=== PATIENT | male | born 1960 | race Caucasian/White ===

== ENCOUNTER 2019-10-03 20:56 | Inpatient (IN) | payer OTHER ==
--- NOTE | 2019-10-03 21:25 | ED ---
GI Bleed HPI - General Chief complaint: GI Bleed Stated complaint: Syncope Time Seen by Provider: 10/03/19 21:09 Source: patient Mode of arrival: wheelchair Limitations: no limitations - History of Present Illness Initial comments: This patient is 59-year-old man who states that he has history of colon cancer and liver cancer, who presents to be evaluated for GI bleeding. The patient states that he had noted some dark bloody material in his colostomy bag on Saturday a little after noon. Patient states that things seem to slow down and then had more of that which he noticed this morning. Patient states that it did seem to get heavier this evening and so he comes to be evaluated. The patient states that he has a colostomy as result of having surgery for the colon cancer. They had attempted to reverse the colostomy earlier this year but he became septic and needed a repeat colostomy performed. Patient did note that he was feeling lightheaded when he stood up. No chest pain or dyspnea at rest. MD complaint: melena Onset/Timin -: hour(s) Consistency: intermittent Improves with: none Worsens with: none Context: liver disease Associated Symptoms: denies other symptoms Treatments Prior to Arrival: none - Related Data Home Medications Medication Instructions Recorded Confirmed Aspirin [Adult Low Dose Aspirin EC] 81 mg PO DAILY 10/03/19 10/03/19 Multivitamins, Thera [Multivitamin 1 tab PO DAILY 10/03/19 10/03/19 (formulary)] Previous Rx's Medication Instructions Recorded Pantoprazole Sodium [Protonix] 40 mg PO AC-BID #60 tablet. 10/07/19 Allergies Allergy/AdvReac Type Severity Reaction Status Date / Time Sulfa (Sulfonamide Allergy Anaphylaxis Verified 10/03/19 23:36 Antibiotics) Review of Systems ROS Statement: Those systems with pertinent positive or pertinent negative responses have been documented in the HPI. ROS Other: All systems not noted in ROS Statement are negative. Constitutional: Denies: fever, chills, weakness Respiratory: Denies: cough, dyspnea, wheezes Cardiovascular: Denies: chest pain, palpitations, orthopnea, edema, syncope Gastrointestinal: Reports: as per HPI, melena. Denies: abdominal pain, nausea, vomiting, diarrhea, constipation, hematochezia Genitourinary: Denies: dysuria, hematuria Musculoskeletal: Denies: back pain Skin: Denies: rash Neurological: Denies: headache, weakness, numbness Past Medical History Past Medical History: Cancer Additional Past Medical History / Comment(s): colon cancer, hx of sepsis History of Any Multi-Drug Resistant Organisms: None Reported Past Surgical History: Bowel Resection Additional Past Surgical History / Comment(s): liver/rectal colon cancer, Past Psychological History: No Psychological Hx Reported Smoking Status: Never smoker Past Alcohol Use History: None Reported Past Drug Use History: None Reported - Past Family History Father Family Medical History: Cancer General Exam Limitations: no limitations General appearance: alert, in no apparent distress Head exam: Present: atraumatic, normocephalic Eye exam: Present: normal appearance. Absent: scleral icterus, conjunctival injection ENT exam: Present: normal oropharynx, other (Pallor) Neck exam: Present: normal inspection, full ROM Respiratory exam: Present: normal lung sounds bilaterally. Absent: respiratory distress, wheezes, rales, rhonchi, stridor Cardiovascular Exam: Present: regular rate (Rate is 96 at my exam), normal rhythm, normal heart sounds. Absent: systolic murmur, diastolic murmur, rubs, gallop GI/Abdominal exam: Present: soft, normal bowel sounds, other (In the right lower abdomen there is what appears to be a loop colostomy. There is some dark melanotic appearing output.). Absent: distended, tenderness, guarding, rebound, rigid, mass, pulsatile mass, hernia Extremities exam: Present: normal inspection, normal capillary refill. Absent: pedal edema, calf tenderness Back exam: Present: normal inspection. Absent: CVA tenderness (R), CVA tenderness (L) Neurological exam: Present: alert Skin exam: Present: warm, dry, intact, normal color. Absent: rash Course Vital Signs 10/03/19 10/03/19 10/03/19 21:02 22:00 22:30 Temperature 98.1 F Pulse Rate 117 H 99 100 Respiratory 18 18 17 Rate Blood Pressure 83/53 94/59 98/61 O2 Sat by Pulse 100 99 100 Oximetry 10/03/19 10/03/19 10/03/19 23:01 23:45 23:55 Temperature 98.7 F 97.8 F 97.5 F L Pulse Rate 105 H 108 H 109 H Respiratory 18 16 18 Rate Blood Pressure 90/62 92/63 100/59 O2 Sat by Pulse 100 100 100 Oximetry 10/04/19 00:25 Temperature 97.8 F Pulse Rate 110 H Respiratory 18 Rate Blood Pressure 97/66 O2 Sat by Pulse 100 Oximetry Medical Decision Making - Lab Data Result diagrams: 10/07/19 10:49 10/05/19 05:10 Lab Results 10/03/19 10/03/19 10/03/19 Range/Units 21:16 21:16 21:16 WBC 10.6 (3.8-10.6) k/uL RBC 2.13 L (4.30-5.90) m/uL Hgb 6.2 L* (13.0-17.5) gm/dL Hct 19.3 L* (39.0-53.0) % MCV 90.7 (80.0-100.0) fL MCH 29.4 (25.0-35.0) pg MCHC 32.4 (31.0-37.0) g/dL RDW 15.2 (11.5-15.5) % Plt Count 301 (150-450) k/uL Neutrophils % 72 % Lymphocytes % 19 % Monocytes % 6 % Eosinophils % 1 % Basophils % 1 % Neutrophils # 7.6 (1.3-7.7) k/uL Lymphocytes # 2.0 (1.0-4.8) k/uL Monocytes # 0.6 (0-1.0) k/uL Eosinophils # 0.1 (0-0.7) k/uL Basophils # 0.1 (0-0.2) k/uL PT (9.0-12.0) sec INR (<1.2) APTT (22.0-30.0) sec Sodium 138 (137-145) mmol/L Potassium 4.2 (3.5-5.1) mmol/L Chloride 111 H (98-107) mmol/L Carbon Dioxide 23 (22-30) mmol/L Anion Gap 4 mmol/L BUN 35 H (9-20) mg/dL Creatinine 0.97 (0.66-1.25) mg/dL Est GFR (CKD-EPI)AfAm >90 (>60 ml/min/1.73 sqM) Est GFR (CKD-EPI)NonAf 85 (>60 ml/min/1.73 sqM) Glucose 180 H (74-99) mg/dL Lactic Ac Sepsis Rflx Plasma Lactic Acid Han 2.8 H* (0.7-2.0) mmol/L Calcium 8.3 L (8.4-10.2) mg/dL Total Bilirubin <0.1 L (0.2-1.3) mg/dL AST 17 (17-59) U/L ALT 29 (21-72) U/L Alkaline Phosphatase 45 (38-126) U/L Troponin I (0.000-0.034) ng/mL Total Protein 4.5 L (6.3-8.2) g/dL Albumin 2.5 L (3.5-5.0) g/dL Blood Type Blood Type Confirm Blood Type Recheck Bld Type Recheck Status Antibody Screen Crossmatch Spec Expiration Date 10/03/19 10/03/19 10/03/19 Range/Units 21:16 21:16 21:16 WBC (3.8-10.6) k/uL RBC (4.30-5.90) m/uL Hgb (13.0-17.5) gm/dL Hct (39.0-53.0) % MCV (80.0-100.0) fL MCH (25.0-35.0) pg MCHC (31.0-37.0) g/dL RDW (11.5-15.5) % Plt Count (150-450) k/uL Neutrophils % % Lymphocytes % % Monocytes % % Eosinophils % % Basophils % % Neutrophils # (1.3-7.7) k/uL Lymphocytes # (1.0-4.8) k/uL Monocytes # (0-1.0) k/uL Eosinophils # (0-0.7) k/uL Basophils # (0-0.2) k/uL PT 10.8 (9.0-12.0) sec INR 1.0 (<1.2) APTT 20.8 L (22.0-30.0) sec Sodium (137-145) mmol/L Potassium (3.5-5.1) mmol/L Chloride (98-107) mmol/L Carbon Dioxide (22-30) mmol/L Anion Gap mmol/L BUN (9-20) mg/dL Creatinine (0.66-1.25) mg/dL Est GFR (CKD-EPI)AfAm (>60 ml/min/1.73 sqM) Est GFR (CKD-EPI)NonAf (>60 ml/min/1.73 sqM) Glucose (74-99) mg/dL Lactic Ac Sepsis Rflx Plasma Lactic Acid Han (0.7-2.0) mmol/L Calcium (8.4-10.2) mg/dL Total Bilirubin (0.2-1.3) mg/dL AST (17-59) U/L ALT (21-72) U/L Alkaline Phosphatase (38-126) U/L Troponin I 0.035 H* (0.000-0.034) ng/mL Total Protein (6.3-8.2) g/dL Albumin (3.5-5.0) g/dL Blood Type O Positive Blood Type Confirm Blood Type Recheck No Previous Record Bld Type Recheck Status CABO Indicated Antibody Screen NEGATIVE Crossmatch See Detail Spec Expiration Date 10/06/2019 - 231510/03/19 10/03/19 Range/Units 21:16 22:15 WBC (3.8-10.6) k/uL RBC (4.30-5.90) m/uL Hgb (13.0-17.5) gm/dL Hct (39.0-53.0) % MCV (80.0-100.0) fL MCH (25.0-35.0) pg MCHC (31.0-37.0) g/dL RDW (11.5-15.5) % Plt Count (150-450) k/uL Neutrophils % % Lymphocytes % % Monocytes % % Eosinophils % % Basophils % % Neutrophils # (1.3-7.7) k/uL Lymphocytes # (1.0-4.8) k/uL Monocytes # (0-1.0) k/uL Eosinophils # (0-0.7) k/uL Basophils # (0-0.2) k/uL PT (9.0-12.0) sec INR (<1.2) APTT (22.0-30.0) sec Sodium (137-145) mmol/L Potassium (3.5-5.1) mmol/L Chloride (98-107) mmol/L Carbon Dioxide (22-30) mmol/L Anion Gap mmol/L BUN (9-20) mg/dL Creatinine (0.66-1.25) mg/dL Est GFR (CKD-EPI)AfAm (>60 ml/min/1.73 sqM) Est GFR (CKD-EPI)NonAf (>60 ml/min/1.73 sqM) Glucose (74-99) mg/dL Lactic Ac Sepsis Rflx Y Plasma Lactic Acid Han (0.7-2.0) mmol/L Calcium (8.4-10.2) mg/dL Total Bilirubin (0.2-1.3) mg/dL AST (17-59) U/L ALT (21-72) U/L Alkaline Phosphatase (38-126) U/L Troponin I (0.000-0.034) ng/mL Total Protein (6.3-8.2) g/dL Albumin (3.5-5.0) g/dL Blood Type Blood Type Confirm O Positive Blood Type Recheck Bld Type Recheck Status Antibody Screen Crossmatch Spec Expiration Date - EKG Data -: EKG Interpreted by Me EKG shows normal: sinus rhythm, axis (Normal), intervals (Normal), QRS complexes (Normal), ST-T waves (Normal) Rate: normal (Rate 99 bpm) Interpretation: normal EKG Critical Care Time Critical Care Time: Yes (30 minutes) Disposition Clinical Impression: Gastrointestinal hemorrhage, Anemia, Elevated troponin, Lactic acidosis Disposition: ADMITTED IP TO THIS HOSP Condition: Good Is patient prescribed a controlled substance at d/c from ED?: No
[2019-10-03] MEDS ORDERED: PANTOPRAZOLE 40 MG/10 ML VIAL IVP STA (21:35)
[2019-10-03 21:45] LABS: Basophils # (A) 0.1 k/uL (0-0.2); Basophils % (A) 1 %; Eosinophils # (A) 0.1 k/uL (0-0.7); Eosinophils % (A) 1 %; Lymphocytes % (A) 19 %; MCH 29.4 pg (25.0-35.0); MCHC 32.4 g/dL (31.0-37.0); MCV 90.7 fL (80.0-100.0); Mean Platelet Volume 7.3; Monocytes # (A) 0.6 k/uL (0-1.0); Monocytes % (A) 6 %; Neutrophils # (A) 7.6 k/uL (1.3-7.7); Neutrophils % (A) 72 %; Platelet Count 301 k/uL (150-450); RBC 2.13 m/uL (4.30-5.90); RDW 15.2 % (11.5-15.5); WBC 10.6 k/uL (3.8-10.6)
[2019-10-03 21:48] LABS: HCT 19.3 % (39.0-53.0); HGB 6.2 gm/dL (13.0-17.5)
[2019-10-03 21:49] LABS: ALT 29 U/L (21-72); AST 17 U/L (17-59); African American GFR (CKD) >90 (>60 ml/min/1.73 sqM); Albumin 2.5 g/dL (3.5-5.0); Alkaline Phosphatase 45 U/L (38-126); Anion Gap 4 mmol/L; Blood Urea Nitrogen 35 mg/dL (9-20); Calcium 8.3 mg/dL (8.4-10.2); Carbon Dioxide 23 mmol/L (22-30); Chloride 111 mmol/L (98-107); Glucose 180 mg/dL (74-99); Non-African American GFR(CKD) 85 (>60 ml/min/1.73 sqM); Potassium 4.2 mmol/L (3.5-5.1); Sodium 138 mmol/L (137-145); Total Bilirubin <0.1 mg/dL (0.2-1.3); Total Protein 4.5 g/dL (6.3-8.2)
[2019-10-03 21:55] LABS: Prothrombin Time 10.8 sec (9.0-12.0)
[2019-10-03] MEDS ORDERED: SODIUM CHLORIDE 0.9% 1,000 ML IV ONE (22:21)
[2019-10-03 22:30] LABS: Partial Thromboplastin Time 20.8 sec (22.0-30.0)
[2019-10-03] MEDS ORDERED: NALOXONE 0.4 MG/ML 1 ML VIAL IV PRN (23:24)
[2019-10-03] MEDS: SODIUM CHLORIDE 0.9% 1,000 ML IV SCH (23:49)
--- NOTE | 2019-10-04 00:32 | P.HPIM ---
History of Present Illness H&P Date: 10/04/19 Patient is a 59-year-old male with a PMH of ?colon cancer w/ mets to liver? initially diagnosed 01/2018 underwent chemo w/ last dose 08/28 with subsequent surgery on 10/28 with resection of the liver and colon and a colostomy formation. He underwent an attempted reversal of the colostomy though was septic and had a prolonged hospital course (03/2019) of 2-3 months. The patient had been doing well since and was in his usual state of health until yesterday morning when he noticed dark red blood in the colostomy bag. He states that the bleeding initially slowed down though by 7 pm today, he began feeling dizzy and he noticed continued bleeding at which time he activated EMS. He denied noticing an y pain or any additional complaints. He denied nausea, vomiting, fever, chills, chest pain, or SOB. Denied headache, weakness, numbness, or tingling. Pt underwent an extensive evaluation in the ED w/ EKG showing NSR @ 99 bpm. Laboratory evaluation revealed a hemoglobin of 6.2, Dulce C 10.6, platelets 301, lactic acid 2.8, troponin 0.035, sodium 138, potassium 4.2, chloride 111, BUN 35, and creatinine 0.97. 1 unit of PRBCs was ordered with surgery and GI consult and the patient was admitted to the medicine service for further management. Review of Systems Pertinent positives and negatives as discussed in HPI, a complete review of systems was performed and all other systems are negative. Past Medical History Past Medical History: Cancer Additional Past Medical History / Comment(s): colon cancer, hx of sepsis History of Any Multi-Drug Resistant Organisms: None Reported Past Surgical History: Bowel Resection Additional Past Surgical History / Comment(s): liver/rectal colon cancer, Past Psychological History: No Psychological Hx Reported Smoking Status: Never smoker Past Alcohol Use History: None Reported Past Drug Use History: None Reported Medications and Allergies Home Medications Medication Instructions Recorded Confirmed Type Aspirin [Adult Low Dose Aspirin EC] 81 mg PO DAILY 10/03/19 10/03/19 History Multivitamins, Thera [Multivitamin 1 tab PO DAILY 10/03/19 10/03/19 History (formulary)] Allergies Allergy/AdvReac Type Severity Reaction Status Date / Time Sulfa (Sulfonamide Allergy Anaphylaxis Verified 10/03/19 23:36 Antibiotics) Physical Exam Vitals: Vital Signs Temp Pulse Resp BP Pulse Ox 10/03/19 23:55 97.5 F L 109 H 18 100/59 100 10/03/19 23:45 97.8 F 108 H 16 92/63 100 10/03/19 23:01 98.7 F 105 H 18 90/62 100 10/03/19 22:30 100 17 98/61 100 10/03/19 22:00 99 18 94/59 99 10/03/19 21:02 98.1 F 117 H 18 83/53 100 Intake and Output 10/03/19 10/03/19 10/04/19 14:59 22:59 06:59 Intake Total 0 Balance 0 Intake: Blood Product 0 Rc As-1 Unit 0 [id number] Other: Weight 73.936 kg General: non toxic, no distress, appears at stated age, normal weight Derm: no unusual rashes/lesions no unusual ecchymoses, warm, dry Head: atraumatic, normocephalic, symmetric Eyes: EOMI, no lid lag, anicteric sclera, pupils equal round reactive to light ENT: Nose and ears atraumatic, no thrush, no pharyngeal erythema Neck: No thyromegaly, no cervical lymphadenopathy, trachea midline, supple Mouth: no lip lesion, mucus membranes moist Cardiovascular: S1S2 reg, systolic murmur appreciated, positive posterior tibial pulse bilateral, no edema, capillary refill less than 2 seconds Lungs: CTA bilateral, no rhonchi, no rales , no accessory muscle use Abdominal: soft, right colostomy bag with maroon colored stool, nontender to palpation, no guarding, no appreciable organomegaly, normal bowel sounds Ext: no gross muscle atrophy, muscle strength 5 out of 5 in all 4 extremities grossly, no contractures, Neuro: CN II-XI grossly intact, light touch intact all 4 extremities, finger to nose within normal limits, Psych: Alert, oriented, appropriate affect Results CBC & Chem 7: 10/03/19 21:16 10/03/19 21:16 Labs: Abnormal Lab Results - Last 24 Hours (Table) 10/03/19 10/03/19 10/03/19 Range/Units 21:16 21:16 21:16 RBC 2.13 L (4.30-5.90) m/uL Hgb 6.2 L* (13.0-17.5) gm/dL Hct 19.3 L* (39.0-53.0) % APTT (22.0-30.0) sec Chloride 111 H (98-107) mmol/L BUN 35 H (9-20) mg/dL Glucose 180 H (74-99) mg/dL Plasma Lactic Acid Han 2.8 H* (0.7-2.0) mmol/L Calcium 8.3 L (8.4-10.2) mg/dL Total Bilirubin <0.1 L (0.2-1.3) mg/dL Troponin I (0.000-0.034) ng/mL Total Protein 4.5 L (6.3-8.2) g/dL Albumin 2.5 L (3.5-5.0) g/dL Crossmatch 10/03/19 10/03/19 10/03/19 Range/Units 21:16 21:16 21:16 RBC (4.30-5.90) m/uL Hgb (13.0-17.5) gm/dL Hct (39.0-53.0) % APTT 20.8 L (22.0-30.0) sec Chloride (98-107) mmol/L BUN (9-20) mg/dL Glucose (74-99) mg/dL Plasma Lactic Acid Han (0.7-2.0) mmol/L Calcium (8.4-10.2) mg/dL Total Bilirubin (0.2-1.3) mg/dL Troponin I 0.035 H* (0.000-0.034) ng/mL Total Protein (6.3-8.2) g/dL Albumin (3.5-5.0) g/dL Crossmatch See Detail Assessment and Plan Plan: Acute blood loss anemia due to GI bleeding in setting of history of colon CA with metastases to liver -Patient reports that he recently had a PET scan, CT abdomen and pelvis, and upper and lower endoscopies which were all negative -Patient notes that he previously was followed Dr. Andrade for his malignancy -Check CBC every 6-8 hourly and transfuse as needed -Protonix IV -Surgery and GI consulted Lactic acidosis -Likely secondary to severe acute GI bleeding -Monitor to resolution -Continue with IV fluids Troponin elevation -Likely due to demand ischemia DVT prophylaxis -IPCDs The patient is admitted with an anticipated greater than 2 midnight stay for evaluation of acute blood loss anemia CODE STATUS: Full Code Discussed with: Patient, Mother Anticipated discharge date: 3-[address]: Home A total of 40 minutes was spent on the care of this complex patient more than 50% of the time was spent in counseling and care coordination.
[2019-10-04 07:31] LABS: Anisocytosis Slight; Basophils # (A) 0.1 k/uL (0-0.2); Basophils % (A) 1 %; Eosinophils # (A) 0.2 k/uL (0-0.7); Eosinophils % (A) 1 %; Lymphocytes # (A) 2.7 k/uL (1.0-4.8); Lymphocytes % (A) 25 %; MCH 28.6 pg (25.0-35.0); MCHC 32.4 g/dL (31.0-37.0); MCV 88.3 fL (80.0-100.0); Mean Platelet Volume 7.1; Monocytes # (A) 0.8 k/uL (0-1.0); Monocytes % (A) 8 %; Neutrophils # (A) 6.8 k/uL (1.3-7.7); Neutrophils % (A) 64 %; Platelet Count 239 k/uL (150-450); RBC 1.96 m/uL (4.30-5.90); RDW 16.8 % (11.5-15.5); WBC 10.7 k/uL (3.8-10.6)
[2019-10-04 07:32] LABS: African American GFR (CKD) >90 (>60 ml/min/1.73 sqM); Anion Gap 3 mmol/L; Blood Urea Nitrogen 27 mg/dL (9-20); Calcium 7.6 mg/dL (8.4-10.2); Carbon Dioxide 24 mmol/L (22-30); Chloride 113 mmol/L (98-107); Glucose 106 mg/dL (74-99); Non-African American GFR(CKD) >90 (>60 ml/min/1.73 sqM); Potassium 3.7 mmol/L (3.5-5.1); Sodium 140 mmol/L (137-145)
[2019-10-04 07:34] LABS: HCT 17.3 % (39.0-53.0); HGB 5.6 gm/dL (13.0-17.5)
[2019-10-04] MEDS: SODIUM CHLORIDE 0.9% 1,000 ML IV SCH ×2 (09:57→21:13)
[2019-10-04] MEDS: PANTOPRAZOLE 40 MG/10 ML VIAL IV SCH (09:57)
--- NOTE | 2019-10-04 11:29 | P.PN ---
Progress Note - Text Progress Note Date: 10/04/19 Patient was seen. Patient reports dark red blood in the colostomy bag has been ongoing since yesterday. He reports some dizziness. He denies any chest pain, shortness of breath or palpitations. He does have a history of colon cancer with metastatic disease to the liver that was diagnosed in January 2018. He underwent surgery in October 2018 with resection of the liver and colon and a colostomy formation. He underwent an attempted colostomy reversal in March 2019 which was complicated by sepsis and prolonged hospitalization of 2-3 months. He has not had any issues since then until yesterday. He reports usual black and dark stool in his colostomy bag but this is not out of the ordinary. His hemoglobin was 6.2 in the ED. He was transfused 1 unit PRBC. Repeat hemoglobin showed 5.6. I have ordered another 2 units of PRBC. GI has evaluated the patient and plan is for upper endoscopy tomorrow. Clear liquid diet now and nothing by mouth after midnight. We will repeat hemoglobin 2 hours after transfusion, discussed with RN. He also has elevated troponins of 0.035 which is likely demand ischemia from anemia. Will trend troponins to rule out acute coronary syndrome. Patient is pending clinical improvement. Prognosis is guarded.
--- NOTE | 2019-10-04 11:45 | P.GSCN ---
History of Present Illness Consult date: 10/04/19 History of present illness: 59-year-old male presents to the emergency department with GI bleed. He is noted to have a history of colon cancer that was treated in the [facility]. He states that he did undergo a colectomy with ostomy creation and then did undergo chemotherapy. He states that he did have metastasis to the liver. He states that he did undergo an ostomy reversal, however there was a leak at the anastomosis that required additional surgical exploration and repair. This occurred while he was recovering in [facility] and he was in the hospital for approximately 2 months secondary to sepsis from this occurrence. Currently, he does have what appears to be an ileostomy in the right abdomen. He states that his medical records from [place] R with his oncologist, Dr. Andrade. He is not currently undergoing any chemotherapy. He denies ever having any previous issues with GI bleeding. On presentation his hemoglobin was 6 and after 1 unit of packed red blood cells, his hemoglobin returned at less than 6. He currently is receiving a unit of packed red blood cells. On exam, he is noted to be mildly hypotensive with a systolic in the 90s. He is not tachycardic. He is in good spirits and conversing throughout the exam. He does not appear to be in any distress. He denies any nausea or vomiting. Per nursing, the ostomy bag contents were originally maroon but have appeared to have more of a stool-like color at this time. He has no additional complaints at this time. He denies any fevers, chills, chest pain or shortness of breath. Review of Systems All systems: negative Past Medical History Past Medical History: Cancer Additional Past Medical History / Comment(s): colon cancer, hx of sepsis History of Any Multi-Drug Resistant Organisms: None Reported Past Surgical History: Bowel Resection Additional Past Surgical History / Comment(s): liver/rectal colon cancer, Past Anesthesia/Blood Transfusion Reactions: No Reported Reaction Past Psychological History: No Psychological Hx Reported Smoking Status: Never smoker Past Alcohol Use History: None Reported Past Drug Use History: None Reported - Past Family History Father Family Medical History: Cancer Medications and Allergies Home Medications Medication Instructions Recorded Confirmed Type Aspirin [Adult Low Dose Aspirin EC] 81 mg PO DAILY 10/03/19 10/03/19 History Multivitamins, Thera [Multivitamin 1 tab PO DAILY 10/03/19 10/03/19 History (formulary)] Allergies Allergy/AdvReac Type Severity Reaction Status Date / Time Sulfa (Sulfonamide Allergy Anaphylaxis Verified 10/03/19 23:36 Antibiotics) Surgical - Exam Osteopathic Statement: *. No significant issues noted on an osteopathic structural exam other than those noted in the History and Physical/Consult. Vital Signs Temp Pulse Resp BP Pulse Ox 98.1 F 117 H 18 83/53 100 10/03/19 21:02 10/03/19 21:02 10/03/19 21:02 10/03/19 21:02 10/03/19 21:02 - General well nourished, no distress - Eyes PERRL - ENT normal mucosa, no hearing loss - Neck no bruits, trachea midline - Respiratory No difficulty with respiration - Abdomen Soft, nontender, nondistended, no rebound, no guarding, ostomy is pink and patent with room colored output, surgical scars are well-healed - Psychiatric oriented to time, oriented to person, oriented to place Results - Labs 10/04/19 06:59 10/04/19 06:59 Abnormal Lab Results - Last 24 Hours (Table) 10/03/19 10/03/19 10/03/19 Range/Units 21:16 21:16 21:16 WBC (3.8-10.6) k/uL RBC 2.13 L (4.30-5.90) m/uL Hgb 6.2 L* (13.0-17.5) gm/dL Hct 19.3 L* (39.0-53.0) % RDW (11.5-15.5) % APTT (22.0-30.0) sec Chloride 111 H (98-107) mmol/L BUN 35 H (9-20) mg/dL Glucose 180 H (74-99) mg/dL Plasma Lactic Acid Han 2.8 H* (0.7-2.0) mmol/L Calcium 8.3 L (8.4-10.2) mg/dL Total Bilirubin <0.1 L (0.2-1.3) mg/dL Troponin I (0.000-0.034) ng/mL Total Protein 4.5 L (6.3-8.2) g/dL Albumin 2.5 L (3.5-5.0) g/dL Crossmatch 10/03/19 10/03/19 10/03/19 Range/Units 21:16 21:16 21:16 WBC (3.8-10.6) k/uL RBC (4.30-5.90) m/uL Hgb (13.0-17.5) gm/dL Hct (39.0-53.0) % RDW (11.5-15.5) % APTT 20.8 L (22.0-30.0) sec Chloride (98-107) mmol/L BUN (9-20) mg/dL Glucose (74-99) mg/dL Plasma Lactic Acid Han (0.7-2.0) mmol/L Calcium (8.4-10.2) mg/dL Total Bilirubin (0.2-1.3) mg/dL Troponin I 0.035 H* (0.000-0.034) ng/mL Total Protein (6.3-8.2) g/dL Albumin (3.5-5.0) g/dL Crossmatch See Detail 10/04/19 10/04/19 Range/Units 06:59 06:59 WBC 10.7 H (3.8-10.6) k/uL RBC 1.96 L (4.30-5.90) m/uL Hgb 5.6 L* (13.0-17.5) gm/dL Hct 17.3 L* (39.0-53.0) % RDW 16.8 H (11.5-15.5) % APTT (22.0-30.0) sec Chloride 113 H (98-107) mmol/L BUN 27 H (9-20) mg/dL Glucose 106 H (74-99) mg/dL Plasma Lactic Acid Han (0.7-2.0) mmol/L Calcium 7.6 L (8.4-10.2) mg/dL Total Bilirubin (0.2-1.3) mg/dL Troponin I (0.000-0.034) ng/mL Total Protein (6.3-8.2) g/dL Albumin (3.5-5.0) g/dL Crossmatch Diabetes panel 10/03/19 10/04/19 Range/Units 21:16 06:59 Sodium 138 140 (137-145) mmol/L Potassium 4.2 3.7 (3.5-5.1) mmol/L Chloride 111 H 113 H (98-107) mmol/L Carbon Dioxide 23 24 (22-30) mmol/L BUN 35 H 27 H (9-20) mg/dL Creatinine 0.97 0.87 (0.66-1.25) mg/dL Glucose 180 H 106 H (74-99) mg/dL Calcium 8.3 L 7.6 L (8.4-10.2) mg/dL AST 17 (17-59) U/L ALT 29 (21-72) U/L Alkaline Phosphatase 45 (38-126) U/L Total Protein 4.5 L (6.3-8.2) g/dL Albumin 2.5 L (3.5-5.0) g/dL Calcium panel 10/03/19 10/04/19 Range/Units 21:16 06:59 Calcium 8.3 L 7.6 L (8.4-10.2) mg/dL Albumin 2.5 L (3.5-5.0) g/dL Pituitary panel 10/03/19 10/04/19 Range/Units 21:16 06:59 Sodium 138 140 (137-145) mmol/L Potassium 4.2 3.7 (3.5-5.1) mmol/L Chloride 111 H 113 H (98-107) mmol/L Carbon Dioxide 23 24 (22-30) mmol/L BUN 35 H 27 H (9-20) mg/dL Creatinine 0.97 0.87 (0.66-1.25) mg/dL Glucose 180 H 106 H (74-99) mg/dL Calcium 8.3 L 7.6 L (8.4-10.2) mg/dL Adrenal panel 10/03/19 10/04/19 Range/Units 21:16 06:59 Sodium 138 140 (137-145) mmol/L Potassium 4.2 3.7 (3.5-5.1) mmol/L Chloride 111 H 113 H (98-107) mmol/L Carbon Dioxide 23 24 (22-30) mmol/L BUN 35 H 27 H (9-20) mg/dL Creatinine 0.97 0.87 (0.66-1.25) mg/dL Glucose 180 H 106 H (74-99) mg/dL Calcium 8.3 L 7.6 L (8.4-10.2) mg/dL Total Bilirubin <0.1 L (0.2-1.3) mg/dL AST 17 (17-59) U/L ALT 29 (21-72) U/L Alkaline Phosphatase 45 (38-126) U/L Total Protein 4.5 L (6.3-8.2) g/dL Albumin 2.5 L (3.5-5.0) g/dL Assessment and Plan (1) Gastrointestinal hemorrhage Narrative/Plan: 59-year-old male with GI bleed and complicated surgical history with history of colon cancer - Currently, hemoglobin is less than 6. He is receiving 1 unit of packed red blood cell with an anticipated second unit for a total of 3 by the end of today. We will recheck hemoglobin at that time. - The patient was followed by gastroenterology. Nursing has informed me that plan is for scope tomorrow. - Continue to monitor vital signs for any signs of hemorrhagic shock. - No plan for acute surgical intervention. We will continue to follow for any changes to the patient's clinical status. I would recommend a consult for oncology as they may be able to provide more accurate medical history due to the patient's medical care being in [place]. Current Visit: Yes Status: Acute Code(s): K92.2 - GASTROINTESTINAL HEMORRHAGE, UNSPECIFIED SNOMED Code(s): 39447518
--- NOTE | 2019-10-04 15:58 | CONS ---
CONSULTATION DATE OF SERVICE: 10/04/2019 REQUESTING PHYSICIAN: Dr. Alvarado. REASON FOR CONSULTATION: Acute GI bleed. HISTORY OF PRESENT ILLNESS: The patient is a 59-year-old pleasant white male who was diagnosed with rectal cancer with liver metastasis in January of 2018 and he initially underwent chemo radiation therapy. In October of 2018 he underwent resection with a colostomy as well as liver resection for liver metastasis. Subsequently, in January of this year, he underwent reversal of the colostomy performed and a week later he became extremely sick with dehiscence at the anastomosis while he was visiting his sister in [place]. He was subsequently hospitalized for 3 months, had 3 more surgeries done around which time he also had another colostomy. He did recover well and he was back to his normal health. Two days ago he started noticing dark colored stools in the colostomy bag. It started on Saturday and then stopped, but yesterday he started having more dark colored stools which showed maroon-colored and had several times had to empty his colostomy bag. He subsequently came into the emergency room and was noted to have a hemoglobin of 6.1. He received 1 unit of blood transfusion and this morning hemoglobin is down to 5.6, and is receiving 2 more units of blood transfusion. He had a regular breakfast this morning. Denies any abdominal pain. No prior history of peptic ulcer disease. He denies any NSAID use. He never had these symptoms in the past. PAST MEDICAL HISTORY: Rectal cancer with liver mets as described above. Follows with Dr. Andrade. PAST SURGICAL HISTORY: Colon surgery with colostomy as mentioned above. MEDICATIONS: At home, multivitamins. ALLERGIES: No known drug allergies. SOCIAL HISTORY: No smoking. No alcohol use. FAMILY HISTORY: Unremarkable. REVIEW OF SYSTEMS: CARDIOPULMONARY: No chest pain, shortness of breath. : No dysuria or hematuria. MUSCULOSKELETAL: Unremarkable. SKIN: Unremarkable. ENDOCRINE: Unremarkable. PSYCHIATRIC: Unremarkable. NEUROLOGY: Unremarkable. ENT/VISION: Unremarkable. CONSTITUTIONAL: No weight loss. No night sweats. EXAMINATION: Blood pressure is 94/59, pulse rate 104, afebrile. HEENT examination unremarkable. Conjunctivae pink. Sclerae anicteric. Oral cavity no lesions. NECK: No JVD or lymph node enlargement. CHEST: Clear to auscultation. HEART: Regular rate and rhythm. ABDOMEN: Soft. Bowel sounds are positive. No organomegaly. Multiple scars noted on the anterior abdominal wall. The colostomy was in the right lower quadrant area. Bag had dark maroon-colored blood. EXTREMITIES: No pedal edema. SKIN: No rashes. NEUROLOGIC: Alert and oriented x3. No focal deficits. LABS: Initial labs, WBC 10.6, hemoglobin 6.2. Today's is 5.6 after one unit of blood transfusion. BUN is 27, creatinine 0.8. Troponin 0.035. IMPRESSION: 1. Acute gastrointestinal bleed with multiple episodes of maroon-colored stools in the colostomy bag that started on Saturday. He dropped his hemoglobin to 5.6 this morning. He received 1 unit of blood transfusion yesterday for hemoglobin of 6.2. 2. Metastatic colorectal neoplasia diagnosed in January of 2018, status post chemo radiation followed by initial colostomy in October of 2018 and subsequently had a reversal performed in January of 2019. This was complicated by leakage in the anastomosis for which he was hospitalized for 3 months and required another colostomy. Presently stable and doing well. Follows with Dr. Andrade. RECOMMENDATIONS: 1. Agree with 2 more units of PRBC transfusion.. 2. Continue with Protonix 40 mg q.12 hours. 3. Clear liquid diet. 4. We will proceed with an upper endoscopy tomorrow. I discussed with the patient risks, benefits and complications of the procedure and he is agreeable to it. Thank you for this consultation. TIFFANY / ABBY: [id number] /
[2019-10-04 19:51] LABS: Anisocytosis Slight; HCT 22.2 % (39.0-53.0); MCH 29.5 pg (25.0-35.0); MCHC 32.8 g/dL (31.0-37.0); MCV 89.9 fL (80.0-100.0); Mean Platelet Volume 7.1; Platelet Count 231 k/uL (150-450); Poikilocytosis Slight; RBC 2.47 m/uL (4.30-5.90); RDW 16.4 % (11.5-15.5); WBC 10.9 k/uL (3.8-10.6)
[2019-10-04 19:54] LABS: HGB 7.3 gm/dL (13.0-17.5)
[2019-10-04] MEDS: MELATONIN 5 MG TABLET PO PRN (21:11)
[2019-10-05 05:37] LABS: African American GFR (CKD) >90 (>60 ml/min/1.73 sqM); Anion Gap 1 mmol/L; Blood Urea Nitrogen 19 mg/dL (9-20); Calcium 7.8 mg/dL (8.4-10.2); Carbon Dioxide 27 mmol/L (22-30); Chloride 109 mmol/L (98-107); Glucose 101 mg/dL (74-99); Non-African American GFR(CKD) >90 (>60 ml/min/1.73 sqM); Potassium 4.1 mmol/L (3.5-5.1); Sodium 137 mmol/L (137-145)
[2019-10-05 05:46] LABS: Anisocytosis Slight; Basophils # (A) 0.2 k/uL (0-0.2); Basophils % (A) 3 %; Eosinophils # (A) 0.6 k/uL (0-0.7); Eosinophils % (A) 7 %; Lymphocytes % (A) 23 %; MCH 29.4 pg (25.0-35.0); MCHC 32.7 g/dL (31.0-37.0); MCV 89.8 fL (80.0-100.0); Mean Platelet Volume 7.6; Monocytes # (A) 0.8 k/uL (0-1.0); Monocytes % (A) 10 %; Neutrophils # (A) 4.8 k/uL (1.3-7.7); Neutrophils % (A) 56 %; Platelet Count 239 k/uL (150-450); Poikilocytosis Slight; RBC 2.17 m/uL (4.30-5.90); RDW 16.6 % (11.5-15.5); WBC 8.6 k/uL (3.8-10.6)
[2019-10-05 06:02] LABS: HGB 6.4 gm/dL (13.0-17.5)
[2019-10-05 06:03] LABS: HCT 19.5 % (39.0-53.0)
[2019-10-05] MEDS: SODIUM CHLORIDE 0.9% 1,000 ML IV SCH ×2 (08:47→15:50)
[2019-10-05] MEDS: PANTOPRAZOLE 40 MG/10 ML VIAL IV SCH (08:48)
--- NOTE | 2019-10-05 12:38 | P.PN ---
Subjective Progress Note Date: 10/05/19 Principal diagnosis: GI bleed Patient was seen and examined. No acute events overnight. Patient reports melanotic stool and his colostomy bag. He has no complaints though. He denies any chest pain, shortness of breath or palpitations. No nausea or vomiting. No fever or chills. No dizziness. Objective - Vital Signs Vital signs: Vital Signs Temp 98.4 F 10/05/19 10:04 Pulse 83 10/05/19 12:26 Resp 16 10/05/19 12:26 BP 112/66 10/05/19 12:26 Pulse Ox 98 10/05/19 12:26 Intake & Output 10/04/19 10/05/19 10/05/19 18:59 06:59 18:59 Intake Total 668 740 310 Output Total 860 425 Balance -192 315 310 Weight 73.8 kg Intake: Intake, IV Titration 500 Amount Sodium Chloride 0.9% 1, 500 000 ml @ 100 mls/hr IV . Q10H [facility] Rx#:[id number] Oral 358 240 Blood Product 310 310 Rc As-1 Unit 310 [id number] Rc As-1 Unit 310 [id number] Rc Pheresis 2 As3 Unit 0 [id number] Output: Urine 275 300 Stool 585 125 Other: Voiding Method Urinal # Voids 4 250 - Exam General: [non toxic], [no distress], [appears at stated age] Derm: [warm], [dry] Head: [atraumatic], [normocephalic], [symmetric] Eyes: [EOMI], [no lid lag], [anicteric sclera] Mouth: [no lip lesion], [mucus membranes moist] Cardiovascular: [S1S2 reg], [no murmur], [positive DP pulse bilateral], Lungs: [CTA bilateral], [no rhonchi, no rales] , [no accessory muscle use] Abdominal: [soft], [ nontender to palpation], [no guarding], [no appreciable organomegaly], [colostomy bag intact with melanotic stool] Ext: [no gross muscle atrophy], [no edema], [no contractures] Neuro: [no focal neuro deficits] Psych: [Alert], [oriented], [appropriate affect] - Labs CBC & Chem 7: 10/05/19 05:10 10/05/19 05:10 Labs: Abnormal Lab Results - Last 24 Hours (Table) 10/03/19 10/04/19 10/05/19 Range/Units 21:16 19:28 05:10 WBC 10.9 H (3.8-10.6) k/uL RBC 2.47 L 2.17 L (4.30-5.90) m/uL Hgb 7.3 L D 6.4 L* (13.0-17.5) gm/dL Hct 22.2 L 19.5 L* (39.0-53.0) % RDW 16.4 H 16.6 H (11.5-15.5) % Chloride (98-107) mmol/L Glucose (74-99) mg/dL Calcium (8.4-10.2) mg/dL Crossmatch See Detail 10/05/19 Range/Units 05:10 WBC (3.8-10.6) k/uL RBC (4.30-5.90) m/uL Hgb (13.0-17.5) gm/dL Hct (39.0-53.0) % RDW (11.5-15.5) % Chloride 109 H (98-107) mmol/L Glucose 101 H (74-99) mg/dL Calcium 7.8 L (8.4-10.2) mg/dL Crossmatch Microbiology - Last 24 Hours (Table) 10/03/19 22:52 Blood Culture - Preliminary Blood No Growth after 24 hours Assessment and Plan Assessment: Acute blood loss anemia due to GI bleed with history of colon cancer with metastatic disease to the liver Troponin elevation History of colon cancer Hemoglobin 5.6 on admission, status post 2 unit PRBC, improvement to 7.3. Hemoglobin this morning 6.4. Plans: GI consulted, plans for EGD today. Transfuse 1 unit PRBC. Continue Protonix IV. Continue normal saline at 100 mL per hour. Follow GI and general surgery consultation. CBC every 6 hours. Troponin 0.035, 0.040, 0.019 with EKG showing normal sinus rhythm. Likely due to demand ischemia. Plans: Acute coronary syndrome ruled out. 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 Plans: Follow oncology recommendations. [Patient admitted for GI bleed. Plans for EGD today. Repeat CBC. Pending clinical improvement. Likely DC in 2-3 days.]
--- NOTE | 2019-10-05 12:57 | P.PN ---
Subjective Progress Note Date: 10/05/19 Patient seen and examined at bedside. States he is feeling well. Hemoglobin is below 7 this morning. He is receiving a unit of packed red blood cell. Plan for scope by GI later today. Ostomy output is dark in color, however no longer maroon. Objective - Vital Signs Vital signs: Vital Signs Temp 98.4 F 10/05/19 10:04 Pulse 83 10/05/19 12:26 Resp 16 10/05/19 12:26 BP 112/66 10/05/19 12:26 Pulse Ox 98 10/05/19 12:26 Intake & Output 10/04/19 10/05/19 10/05/19 18:59 06:59 18:59 Intake Total 668 740 310 Output Total 860 425 Balance -192 315 310 Weight 73.8 kg Intake: Intake, IV Titration 500 Amount Sodium Chloride 0.9% 1, 500 000 ml @ 100 mls/hr IV . Q10H [facility] Rx#:[id number] Oral 358 240 Blood Product 310 310 Rc As-1 Unit 310 [id number] Rc As-1 Unit 310 [id number] Rc Pheresis 2 As3 Unit 0 [id number] Output: Urine 275 300 Stool 585 125 Other: Voiding Method Urinal # Voids 4 250 - Constitutional General appearance: Present: cooperative, no acute distress - Respiratory Details: no difficulty with respiration - Gastrointestinal Gastrointestinal Comment(s): soft, ostomy pink and patent, output dark in color - Musculoskeletal Musculoskeletal: Present: generalized weakness - Labs CBC & Chem 7: 10/05/19 05:10 10/05/19 05:10 Labs: Abnormal Lab Results - Last 24 Hours (Table) 10/03/19 10/04/19 10/05/19 Range/Units 21:16 19:28 05:10 WBC 10.9 H (3.8-10.6) k/uL RBC 2.47 L 2.17 L (4.30-5.90) m/uL Hgb 7.3 L D 6.4 L* (13.0-17.5) gm/dL Hct 22.2 L 19.5 L* (39.0-53.0) % RDW 16.4 H 16.6 H (11.5-15.5) % Chloride (98-107) mmol/L Glucose (74-99) mg/dL Calcium (8.4-10.2) mg/dL Crossmatch See Detail 10/05/19 Range/Units 05:10 WBC (3.8-10.6) k/uL RBC (4.30-5.90) m/uL Hgb (13.0-17.5) gm/dL Hct (39.0-53.0) % RDW (11.5-15.5) % Chloride 109 H (98-107) mmol/L Glucose 101 H (74-99) mg/dL Calcium 7.8 L (8.4-10.2) mg/dL Crossmatch Microbiology - Last 24 Hours (Table) 10/03/19 22:52 Blood Culture - Preliminary Blood No Growth after 24 hours Assessment and Plan (1) Gastrointestinal hemorrhage Narrative/Plan: 59-year-old male with GI bleed and complicated surgical history with history of colon cancer - Currently, hemoglobin is 6.4. He is receiving 1 unit of packed red blood cell. - The patient was followed by gastroenterology. Scope later today - Continue to monitor vital signs for any signs of hemorrhagic shock. - We will continue to follow Current Visit: Yes Status: Acute Priority: High Code(s): K92.2 - GASTROINTESTINAL HEMORRHAGE, UNSPECIFIED SNOMED Code(s): 12979046
--- NOTE | 2019-10-05 12:57 | P.CONS ---
History of Present Illness - Reason for Consult Consult date: 10/05/19 anemia, rectal adenocarcinoma Requesting physician: Martin Hernandez - Chief Complaint melena, fatigue - History of Present Illness Mr. Garrison is a very pleasant pt of Dr. Andrade who was found to have rectal polyp during routine screening colonoscopy done 06/08/13 which was resected, pathology revealed moderately differentiated adenocarcinoma arising in an adenoma and extending to inked margin. Sigmoidoscopy 07/07/13 with multiple biopsies from the site of the previous polyp all came back with reactive changes, no malignancy. T1 tumor completely resected, surveillance recommended. Pt did not follow-up with surveillance colonoscopies as recommended. He was referred to Dr. Gates 03/28 by his PCP and had a repeat colonoscopy on 04/03/18. Suspicious lesion at 8 cm (the same side as the previous), biopsies revealed high-grade dysplasia but, not overt malignancy. Referred for an endoscopic ultrasound, done on 04/15/18. This showed the mass to be predominantly T2, with a section of it showing T3 invasion, no adjacent nodes appear to be involved. Case discussed at [facility]. As treatment for T3 and higher involves chemotherapy, which could not be administered without a definite diagnosis of malignancy, repeat biopsy was recommended. This was done via sigmoidoscopy on 05/01/18 confirming a moderately differentiated adenocarcinoma. Staging CT CAP 04/28/18 showed a hypodense subcentimeter lesion with ill-defined borders in the upper left lobe of the liver, metastatic disease could not be excluded. CEA level was mildly elevated at 19.8, MRI of the liver was indeterminate re the lesion, PET scan was negative. Liver biopsy 06/19/18 was positive for adenoca c/w colon primary. He started FOLFOX with Vectibix added cycle 3. Tx held 09/28 for liver and rectal resection in 10/28 at [facility]. He decided on reversal 1st and had that in 01/27, unfortunately he developed an anastomotic leak and sepsis, treated in [place], [place] with multiple surgeries, including ostomy replacement, most recent surgery was 03/29. He came back to the office to establish f/u in late 05/29. He had restaging labs and CT scans, with CEA 2.5., scans showed a 4.4 cm lesion in the left dome area, with surrounding surgical clips, appeared to be more likely post surgical defect, PET 07/30 showed uptake only in the RLQ/rt pararenal space which appeared to be inflammatory. He last had FOLFOX on 09/10, he had vectibix on 09/23. Last scan 09/16, [facility], pending recommendations from [facility]. Pt admitted for melena with severe acute blood loss anemia, he states dark stool from ostomy started Saturday, he denied any other bleeding, indigestion, stomach cramping, vomiting, increased ostomy output, change in stool consistency. No fever, recent illness, sore throat, chest pain, cough DAVID. Hgb on admit was as low as 5.6, he is s/p 4 units PRBCs, currently the stool in ostomy is very dark Review of Systems 14 point ROS is negative except as stated in HPI Past Medical History Past Medical History: Cancer Additional Past Medical History / Comment(s): colon cancer, hx of sepsis History of Any Multi-Drug Resistant Organisms: None Reported Past Surgical History: Bowel Resection Additional Past Surgical History / Comment(s): liver/rectal colon cancer, Past Anesthesia/Blood Transfusion Reactions: No Reported Reaction Past Psychological History: No Psychological Hx Reported Smoking Status: Never smoker Past Alcohol Use History: None Reported Past Drug Use History: None Reported - Past Family History Father Family Medical History: Cancer Medications and Allergies Home Medications Medication Instructions Recorded Confirmed Type Aspirin [Adult Low Dose Aspirin EC] 81 mg PO DAILY 10/03/19 10/03/19 History Multivitamins, Thera [Multivitamin 1 tab PO DAILY 10/03/19 10/03/19 History (formulary)] Allergies Allergy/AdvReac Type Severity Reaction Status Date / Time Sulfa (Sulfonamide Allergy Anaphylaxis Verified 10/03/19 23:36 Antibiotics) Physical Exam Vitals: Vital Signs Temp Pulse Pulse Resp BP BP Pulse Ox 10/05/19 12:26 83 16 112/66 98 10/05/19 10:04 98.4 F 85 16 101/59 98 10/05/19 09:34 98.3 F 79 16 94/53 96 10/05/19 09:24 98.1 F 83 16 91/54 97 10/05/19 07:43 98.2 F 78 16 85/54 99 10/05/19 04:00 98.0 F 76 17 94/52 99 10/05/19 00:00 97.9 F 94 17 95/58 98 10/04/19 20:10 98.5 F 90 16 114/62 100 10/04/19 17:03 98.8 F 96 18 113/70 99 10/04/19 17:00 98.7 F 94 18 110/67 99 10/04/19 15:30 98.6 F 96 18 101/66 99 10/04/19 14:30 98.5 F 97 18 100/61 98 10/04/19 14:00 98.2 F 98 18 96/59 99 10/04/19 13:50 98.8 F 100 18 94/60 99 10/04/19 12:45 98.3 F 104 H 18 103/63 99 Intake and Output 10/04/19 10/05/19 10/05/19 22:59 06:59 14:59 Intake Total 550 740 310 Output Total 125 425 Balance 425 315 310 Intake: Intake, IV Titration 500 Amount Sodium Chloride 0.9% 1, 500 000 ml @ 100 mls/hr IV . Q10H [facility] Rx#:[id number] Oral 240 240 Blood Product 310 310 Rc As-1 Unit 310 [id number] Rc As-1 Unit 310 [id number] Output: Urine 300 Stool 125 125 Other: Voiding Method Urinal Urinal # Voids 4 250 Weight 73.8 kg - Constitutional General appearance: average body habitus, cooperative, no acute distress - EENT Eyes: anicteric sclerae, EOMI ENT: hearing grossly normal, normal oropharynx - Neck Neck: no lymphadenopathy - Respiratory Respiratory: bilateral: CTA - Cardiovascular Rhythm: regular Heart sounds: normal: S1, S2 Abnormal Heart Sounds: no systolic murmur, no diastolic murmur, no rub, no S3 Gallop, no S4 Gallop, no click, no other leg Peripheral Edema: bilateral: None - Gastrointestinal thick tissue scar midline, RLQ ostomy, very dark stool in appliance General gastrointestinal: no absent bowel sounds, no decreased bowel sounds, no distended, no hepatomegaly, no hyperactive bowel sounds, normal bowel sounds, no organomegaly, no rigid, no scaphoid, soft, no splenomegaly, tenderness, no umbilical hernia, no ventral hernia - Integumentary Integumentary: pale - Neurologic Neurologic: CNII-XII intact - Musculoskeletal Musculoskeletal: generalized weakness, strength equal bilaterally - Psychiatric Psychiatric: A&O x's 3, appropriate affect, intact judgment & insight Results CBC & Chem 7: 10/05/19 05:10 10/05/19 05:10 Labs: Abnormal Lab Results - Last 24 Hours (Table) 10/03/19 10/04/19 10/05/19 Range/Units 21:16 19:28 05:10 WBC 10.9 H (3.8-10.6) k/uL RBC 2.47 L 2.17 L (4.30-5.90) m/uL Hgb 7.3 L D 6.4 L* (13.0-17.5) gm/dL Hct 22.2 L 19.5 L* (39.0-53.0) % RDW 16.4 H 16.6 H (11.5-15.5) % Chloride (98-107) mmol/L Glucose (74-99) mg/dL Calcium (8.4-10.2) mg/dL Crossmatch See Detail 10/05/19 Range/Units 05:10 WBC (3.8-10.6) k/uL RBC (4.30-5.90) m/uL Hgb (13.0-17.5) gm/dL Hct (39.0-53.0) % RDW (11.5-15.5) % Chloride 109 H (98-107) mmol/L Glucose 101 H (74-99) mg/dL Calcium 7.8 L (8.4-10.2) mg/dL Crossmatch Microbiology - Last 24 Hours (Table) 10/03/19 22:52 Blood Culture - Preliminary Blood No Growth after 24 hours Assessment and Plan (1) Gastrointestinal hemorrhage Narrative/Plan: GI and Surgery following pt. Endoscopy pending Current Visit: Yes Status: Acute Priority: High Code(s): K92.2 - GASTROINTESTINAL HEMORRHAGE, UNSPECIFIED SNOMED Code(s): 55525374 (2) Acute blood loss anemia Narrative/Plan: Pt hgb was 13.3 in the office on 09/23 for f/u. Pt denies any other sources of bleeding other then the ostomy Pt is being transfused. Transfuse to keep Hgb 7 or higher unless symptomatic Endoscopy planned for today Current Visit: Yes Status: Acute Priority: High Code(s): D62 - ACUTE POSTHEMORRHAGIC ANEMIA SNOMED Code(s): 306851377 (3) Rectal adenocarcinoma Narrative/Plan: Last imaging 09/16, [facility]. Pt was referred to [facility] for opinion to get an opinion re: any further benefit for more systemic therapy, in his particular situation, either full dose or a maintenance type. Pt states he is waiting for that call for appt date and time. No further treatment is planned at this time Current Visit: No Status: Chronic Priority: Medium Code(s): C20 - MALIGNANT NEOPLASM OF RECTUM SNOMED Code(s): 479459142
[2019-10-05] MEDS ORDERED: LIDOCAINE 1% INJ 10MG/ML (20 ML MDV) ONE (15:09)
[2019-10-05] MEDS ORDERED: PROPOFOL 10 MG/ML 20 ML VIAL IV ONE (15:09)
[2019-10-05] MEDS ORDERED: IV FLUID CONTINUATION 1,000 ML IV ONE (15:26)
--- NOTE | 2019-10-05 15:38 | P.PCN ---
Date of Procedure: 10/05/19 Description of Procedure: BRIEF HISTORY: Patient is a 59-year-old female with a medical history significant for rectal cancer with liver metastases diagnosed in January 2018 who is status post resection with colostomy formation in October 2018 with subsequent reversal. This was complicated by dehiscence and the patient underwent multiple subsequent surgeries. He is also had gastric ulcers requiring surgical intervention while hospitalized. PROCEDURE PERFORMED: Esophagogastroduodenoscopy with biopsy and clip placement. PREOPERATIVE DIAGNOSIS: Anemia of acute blood loss, GI bleed, melena. ESTIMATED BLOOD LOSS: Minimal. IV sedation per anesthesia. PROCEDURE: After informed consent was obtained, the patient was brought into the endoscopy unit. IV sedation was administered by Anesthesia under continuous monitoring. Initially the Olympus GIF-190 video endoscope was inserted into the mouth. Esophagus intubated without any difficulty. It was gradually advanced into the stomach, where evidence of patient's prior gastric resection was seen. The small bowel was intubated and appeared normal with no active bleeding or old blood seen. The scope was then withdrawn back into the remnant stomach with air to nonbleeding ulcers were seen at the anastomotic site. There was a red spot on one of the ulcers concerning for a vessel which was treated with Endo Clip placement. Biopsies were taken around the ulcer sites. Biopsies were also taken of the thickened gastric fold. The rest of the stomach appeared normal. The scope withdrawn into the esophagus where the GE junction was located at 38 cm from the incisors and a 2 cm hiatal hernia was noted. There were no ulcerations or erosions in the esophagus and the patient tolerated the procedure well. IMPRESSION: 1. 2 nonbleeding ulcers at the gastric anastomotic site, biopsied. Visualization of a red spot on one of the ulcers concerning for a possible visible vessel was treated with Endo Clip placement. No active bleeding or old blood was noted. 2. Thickened gastric fold biopsied. 3. Small hiatal hernia. RECOMMENDATIONS: The findings of this examination were discussed with the patient and his family. Okay to resume full liquid diet. Await pathology from biopsies. Continue to monitor hemoglobin and hematocrit and transfuse as needed. Avoid NSAID use. Continue Protonix twice daily.
[2019-10-05] MEDS: MELATONIN 5 MG TABLET PO PRN (21:43)
[2019-10-06] MEDS: SODIUM CHLORIDE 0.9% 1,000 ML IV SCH ×3 (05:41→13:30)
[2019-10-06] MEDS: PANTOPRAZOLE 40 MG/10 ML VIAL IV SCH (08:58)
[2019-10-06 10:05] LABS: Anisocytosis Slight; HCT 23.2 % (39.0-53.0); HGB 7.8 gm/dL (13.0-17.5); MCH 30.3 pg (25.0-35.0); MCHC 33.6 g/dL (31.0-37.0); Platelet Count 278 k/uL (150-450); RBC 2.58 m/uL (4.30-5.90); RDW 17.3 % (11.5-15.5); WBC 5.9 k/uL (3.8-10.6)
--- NOTE | 2019-10-06 12:26 | P.PN ---
Subjective Progress Note Date: 10/06/19 Principal diagnosis: GI bleed Patient was seen and examined. No acute events overnight. Patient reports normal colored stool in colostomy bag. Underwent EGD yesterday, found to have 2 gastric ulcers, clipped. He has no complaints. He denies any chest pain, shortness of breath or palpitations. No nausea or vomiting. No fever or chills. No dizziness. Objective - Vital Signs Vital signs: Vital Signs Temp 97.6 F 10/06/19 08:00 Pulse 88 10/06/19 08:00 Resp 20 10/06/19 08:00 BP 107/59 10/06/19 08:00 Pulse Ox 99 10/06/19 08:00 Intake & Output 10/05/19 10/06/19 10/06/19 18:59 06:59 18:59 Intake Total 1860 360 Output Total 125 Balance 1860 235 Weight 72.9 kg Intake: IV 350 Intake, IV Titration 900 Amount Sodium Chloride 0.9% 1, 900 000 ml @ 100 mls/hr IV . Q10H [facility] Rx#:[id number] Oral 360 Blood Product 610 Rc As-1 Unit 310 [id number] Output: Stool 125 Other: Voiding Method Urinal # Voids 2 3 # Bowel Movements 2 - Exam General: [non toxic], [no distress], [appears at stated age] Derm: [warm], [dry] Head: [atraumatic], [normocephalic], [symmetric] Eyes: [EOMI], [no lid lag], [anicteric sclera] Mouth: [no lip lesion], [mucus membranes moist] Cardiovascular: [S1S2 reg], [no murmur], [positive DP pulse bilateral], Lungs: [CTA bilateral], [no rhonchi, no rales] , [no accessory muscle use] Abdominal: [soft], [ nontender to palpation], [no guarding], [no appreciable organomegaly], [colostomy bag intact with normal colored stool] Ext: [no gross muscle atrophy], [no edema], [no contractures] Neuro: [no focal neuro deficits] Psych: [Alert], [oriented], [appropriate affect] - Labs CBC & Chem 7: 10/06/19 09:23 10/05/19 05:10 Labs: Abnormal Lab Results - Last 24 Hours (Table) 10/03/19 10/06/19 Range/Units 21:16 09:23 RBC 2.58 L (4.30-5.90) m/uL Hgb 7.8 L (13.0-17.5) gm/dL Hct 23.2 L (39.0-53.0) % RDW 17.3 H (11.5-15.5) % Crossmatch See Detail Microbiology - Last 24 Hours (Table) 10/03/19 22:52 Blood Culture - Preliminary Blood No Growth after 48 hours Assessment and Plan Assessment: Acute blood loss anemia due to GI bleed from gastric ulcer with history of colon cancer with metastatic disease to the liver Troponin elevation History of colon cancer Hemoglobin 5.6 on admission, status post 3 unit PRBC, improvement to 7.8. Underwent EGD, gastric ulcer found, clipped. Plans: Low-fat diet. Continue Protonix IV. Continue normal saline at 100 mL per hour. Follow GI and general surgery consultation. Troponin 0.035, 0.040, 0.019 with EKG showing normal sinus rhythm. Likely due to demand ischemia. Plans: Acute coronary syndrome ruled out. 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 Plans: Follow oncology recommendations. [Patient admitted for GI bleed. EGD done yesterday, found to have gastric ulcer, clipped. Diet advanced today. Repeat CBC tomorrow morning. Plans on DC tomorrow if hemoglobin stable.]
--- NOTE | 2019-10-06 12:36 | P.PN ---
Subjective Progress Note Date: 10/06/19 Patient seen and examined at bedside. No acute events. The patient did have an EGD performed yesterday with no evidence of active bleed. Hemoglobin is improving. He is tolerating a full liquid diet. Objective - Vital Signs Vital signs: Vital Signs Temp 97.6 F 10/06/19 08:00 Pulse 88 10/06/19 08:00 Resp 20 10/06/19 08:00 BP 107/59 10/06/19 08:00 Pulse Ox 99 10/06/19 08:00 Intake & Output 10/05/19 10/06/19 10/06/19 18:59 06:59 18:59 Intake Total 1860 360 Output Total 125 Balance 1860 235 Weight 72.9 kg Intake: IV 350 Intake, IV Titration 900 Amount Sodium Chloride 0.9% 1, 900 000 ml @ 100 mls/hr IV . 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 - EGD with no active bleeding. - Continue to monitor vital signs for any signs of hemorrhagic shock. - Continue to advance diet per GI - No plan for acute surgical intervention at this time Current Visit: Yes Status: Acute Priority: High Code(s): K92.2 - GASTROINTESTINAL HEMORRHAGE, UNSPECIFIED SNOMED Code(s): 12802927
[2019-10-06 12:38] VITALS: RESP 18
[2019-10-06] MEDS: MELATONIN 5 MG TABLET PO PRN (21:48)
[2019-10-07] MEDS: SODIUM CHLORIDE 0.9% 1,000 ML IV SCH ×2 (03:21→08:23)
--- NOTE | 2019-10-07 07:31 | P.PN ---
Subjective Progress Note Date: 10/06/19 Principal diagnosis: Anemia acute blood loss, GI bleed Tolerating diet, no abdominal pain. Good output from ostomy. Objective - Vital Signs Vital signs: Vital Signs Temp 98.3 F 10/06/19 16:00 Pulse 89 10/06/19 16:00 Resp 18 10/06/19 16:00 BP 108/56 10/06/19 16:00 Pulse Ox 99 10/06/19 16:00 Intake & Output 10/05/19 10/06/19 10/06/19 18:59 06:59 18:59 Intake Total 1860 720 Output Total 325 Balance 1860 395 Weight 72.9 kg Intake: IV 350 Intake, IV Titration 900 Amount Sodium Chloride 0.9% 1, 900 000 ml @ 100 mls/hr IV . Q10H [facility] Rx#:[id number] Oral 720 Blood Product 610 Rc As-1 Unit 310 [id number] Output: Stool 325 Other: Voiding Method Urinal # Voids 2 3 # Bowel Movements 2 - Exam On physical examination, patient appears comfortable in no apparent distress. HEAD: Normocephalic, atraumatic. EYES: No scleral icterus. No conjunctival injection. MOUTH: No lesions, tongue midline. NECK: Trachea midline, no gross abnormalities. CHEST: Clear to auscultation with no wheezing or rhonchi appreciated. HEART: S1-S2 appreciated, no murmurs appreciated. ABDOMEN: Soft, obese. Bowel sounds are positive. No organomegaly. No guarding or rigidity. EXTREMITIES: No pedal edema. SKIN: No rashes, no jaundice. NEUROLOGIC: Alert and oriented x3. No focal deficits. - Labs CBC & Chem 7: 10/06/19 09:23 10/05/19 05:10 Labs: Abnormal Lab Results - Last 24 Hours (Table) 10/06/19 Range/Units 09:23 RBC 2.58 L (4.30-5.90) m/uL Hgb 7.8 L (13.0-17.5) gm/dL Hct 23.2 L (39.0-53.0) % RDW 17.3 H (11.5-15.5) % Microbiology - Last 24 Hours (Table) 10/03/19 22:52 Blood Culture - Preliminary Blood No Growth after 48 hours Assessment and Plan (1) Acute blood loss anemia Narrative/Plan: 59-year-old male with multiple medical comorbidities who presented to the hospital due to concerns of GI bleeding. He was found to have an acute fall in his hemoglobin. He was taken for EGD with findings of gastric ulcers at the anastomotic site from the previous surgical intervention for peptic ulcer disease. No high risk stigmata's were seen at that time and patient has had no further signs or symptoms of bleeding. Current Visit: Yes Status: Acute Priority: High Code(s): D62 - ACUTE POSTHEMORRHAGIC ANEMIA SNOMED Code(s): 989815665 (2) Gastrointestinal hemorrhage Current Visit: Yes Status: Acute Priority: High Code(s): K92.2 - GASTROINTESTINAL HEMORRHAGE, UNSPECIFIED SNOMED Code(s): 28691782 Plan: Supportive care Okay for diet as tolerated Continue to monitor stool output Discharged on twice daily PPI therapy Avoid NSAID therapy Thank you for allowing us to participate in care of the patient
[2019-10-07 08:41] VITALS: BP 100/59; PULSE 81; TEMP 98
[2019-10-07] MEDS: PANTOPRAZOLE 40 MG/10 ML VIAL IV SCH (09:04)
--- NOTE | 2019-10-07 12:21 | P.DS ---
Providers Date of admission: 10/03/19 23:30 Expected date of discharge: 10/07/19 Attending physician: Omid Flores MD Consults: 10/03/19 23:26 Consult Physician Urgent Consulting Provider: Yuli Garcia Consult Reason/Comments: GI bleeding. Do you want consulting provider notified?: Already Contacted 10/03/19 23:27 Consult Physician Urgent Consulting Provider: Kailyn Lima Consult Reason/Comments: GI Bleeding Do you want consulting provider notified?: Yes 10/04/19 07:36 Consult Physician Urgent Consulting Provider: Francis Andrade Consult Reason/Comments: Anemia, continuity of care Do you want consulting provider notified?: Yes Primary care physician: Fox Alvarado Hospital Course: Discharge diagnoses Acute blood loss anemia Upper GI bleed Peptic ulcer disease with gastric ulcers Troponin elevation History of colon cancer Hospital course The patient is a 59-year-old male with a history of 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 Patient was typed and crossed and transfused a total of 4 units packed RBCs, the general surgeon GI was consulted EGD was performed that showed 2 nonbleeding ulcers at the gastric anastomosic site and a small hiatal hernia biopsies were taken. The patient was started on PPI therapy the patient claims to have good output out of his ostomy.The patient was noted to have elevated troponin secondary to demand ischemia from being so profoundly anemic, and his EKG showed sinus mechanism without no suggestion of acute ischemia. The patient remained stable and his hemoglobin Was 7.8 on discharge. This discharge process took approximately 35 minutes Focused exam GI: Soft nontender nondistended normoactive bowel sounds are quadrant, ostomy without bloody output Patient Condition at Discharge: Good Plan - Discharge Summary Discharge Rx Participant: No New Discharge Prescriptions: New Pantoprazole Sodium [Protonix] 40 mg PO AC-BID #60 tablet. Continue Multivitamins, Thera [Multivitamin (formulary)] 1 tab PO DAILY Aspirin [Adult Low Dose Aspirin EC] 81 mg PO DAILY Discharge Medication List Aspirin [Adult Low Dose Aspirin EC] 81 mg PO DAILY 10/03/19 [History] Multivitamins, Thera [Multivitamin (formulary)] 1 tab PO DAILY 10/03/19 [History] Pantoprazole Sodium [Protonix] 40 mg PO AC-BID #60 tablet. 10/07/19 [Rx] Follow up Appointment(s)/Referral(s): Francis Andrade MD [STAFF PHYSICIAN] - 11/25/19 10:00 am Fox Alvarado MD [Primary Care Provider] - 1-2 days Carter Jamison MD [STAFF PHYSICIAN] - 1 Week Patient Instructions/Handouts: Gastrointestinal Bleeding (DC) Activity/Diet/Wound Care/Special Instructions: APPT WITH [facility] PENDING Discharge Disposition: HOME SELF-CARE
[2019-10-07 12:28] LABS: Anisocytosis Slight; Basophils # (A) 0.1 k/uL (0-0.2); Basophils % (A) 1 %; Eosinophils # (A) 0.3 k/uL (0-0.7); Eosinophils % (A) 5 %; HCT 24.3 % (39.0-53.0); HGB 7.9 gm/dL (13.0-17.5); Hypochromasia Slight; Lymphocytes % (A) 27 %; MCH 30.2 pg (25.0-35.0); MCHC 32.6 g/dL (31.0-37.0); MCV 92.4 fL (80.0-100.0); Monocytes # (A) 0.7 k/uL (0-1.0); Monocytes % (A) 10 %; Neutrophils # (A) 3.9 k/uL (1.3-7.7); Neutrophils % (A) 55 %; Platelet Count 237 k/uL (150-450); RBC 2.63 m/uL (4.30-5.90); RDW 17.4 % (11.5-15.5); WBC 7.2 k/uL (3.8-10.6)
== END 2019-10-07 13:05 | disposition home or self-care (01) | DRG 378 ==
LOC: EC 20:56 → 3SCARD 23:30
PROVIDERS: ADMIT Internal Medicine; ATTEND Internal Medicine
PROC: 0W3P8ZZ Control Bleeding in Gastrointestinal Tract, Via Natural or Artificial Opening Endoscopic (ICD-10-PCS; principal; 2019-10-05 07:30)
PROC: 0DB68ZX Excision of Stomach, Via Natural or Artificial Opening Endoscopic, Diagnostic (ICD-10-PCS; principal; 2019-10-05 07:30)
PROC: 30233N1 Transfusion of Nonautologous Red Blood Cells into Peripheral Vein, Percutaneous Approach (ICD-10-PCS; principal; 2019-10-05 07:30)
DX: K28.4 Chronic or unspecified gastrojejunal ulcer with hemorrhage (principal); D62 Acute posthemorrhagic anemia; I24.8 Other forms of acute ischemic heart disease; E87.2 Acidosis; K44.9 Diaphragmatic hernia without obstruction or gangrene; Z88.2 Allergy status to sulfonamides; Z79.899 Other long term (current) drug therapy; Z86.19 Personal history of other infectious and parasitic diseases; Z90.49 Acquired absence of other specified parts of digestive tract; Z85.038 Personal history of other malignant neoplasm of large intestine; Z85.05 Personal history of malignant neoplasm of liver; Z98.890 Other specified postprocedural states; Z93.3 Colostomy status; Z92.21 Personal history of antineoplastic chemotherapy; Z79.82 Long term (current) use of aspirin; Z92.3 Personal history of irradiation; Z80.9 Family history of malignant neoplasm, unspecified
CPT/HCPCS: 36415; 36430; 43239; 43255; 80048; 80053; 83605; 84484; 85025; 85027; 85610; 85730; 86850; 86900; 86901; 86920; 87040; 88305; 88342; 93005; 96361; 96365; 96374; 99285

== ENCOUNTER → 2019-12-26 | Outpatient (CLI) | payer OTHER ==
--- NOTE | 2019-12-30 11:14 | PE ---
Nuclear medicine PET/CT HISTORY: Rectal carcinoma, subsequent Patient received 11.8 mCi F-18 FDG intravenously in delayed scanning was performed from skull base to the mid thighs. Localization and attenuation correction CT scan was performed. No comparisons available. Neck and chest: There is no evident cervical or supraclavicular adenopathy. Port is present in the [facility] pectoral region, catheter courses via the subclavian approach into the superior vena cava to the level of the cavoatrial junction. There is metallic density through the aorta, mild coronary artery c alcification. No pleural or pericardial effusion. No mediastinal, axillary, or hilar adenopathy. No s uspicious hypermetabolic uptake. ABDOMEN: There is an ostomy in the right lower quadrant, redundant loops of bowel are present within the subcutaneous fat, there is a parastomal hernia, postop changes are noted to some of the bowel loo ps within the subcutaneous fat. There is hypermetabolic uptake noted at the level of the rectum, tubu lar area of intensity is present deep within the pelvis, some metallic clips were also present at thi s level, SUV measures approximately 4.2. Prostate shows associated calcifications. No evident pelvic adenopathy or free fluid. Nonobstructive calculus present at the lower pole of the right kidney, midp ole the left kidney measuring only 2 mm. Focal area of low-attenuation within the left lobe of the li juan anteriorly in the medial segment shows some probable associated metallic clips, lack of uptake at this level. Within the lateral segment there is a focal area of low-attenuation measuring approximat lelia 1 cm without hypermetabolic uptake. Patient is post splenectomy. Postop changes are noted to the bowel in the left hemiabdomen additionally. Osseous structures: Facet arthropathy, degenerative disc changes are present in the lower lumbar spine. No suspicious hypermetabolic uptake. IMPRESSION: There is hypermetabolic uptake within the rectum, question postop changes at this level, follow-up suggested. Additional findings above.
== END | disposition home or self-care (01) ==
LOC: RADPETMAIN 08:53
PROVIDERS: ATTEND Internal Medicine Hematology & Oncology
DX: C21.8 Malignant neoplasm of overlapping sites of rectum, anus and anal canal (principal)
CPT/HCPCS: 78815; A9552

== ENCOUNTER 2020-04-01 00:47 | Inpatient (IN) | payer OTHER ==
[2020-04-01 02:10] LABS: Anisocytosis Slight; Basophils # (A) 0.1 k/uL (0-0.2); Basophils % (A) 1 %; Eosinophils # (A) 0.3 k/uL (0-0.7); Eosinophils % (A) 3 %; HCT 31.7 % (39.0-53.0); Hypochromasia Moderate; Lymphocytes % (A) 21 %; MCH 28.2 pg (25.0-35.0); MCHC 31.4 g/dL (31.0-37.0); MCV 89.6 fL (80.0-100.0); Mean Platelet Volume 7.8; Monocytes % (A) 11 %; Neutrophils % (A) 63 %; Platelet Count 405 k/uL (150-450); RBC 3.54 m/uL (4.30-5.90); WBC 9.6 k/uL (3.8-10.6)
[2020-04-01 02:21] LABS: ALT 19 U/L (4-49); AST 26 U/L (17-59); African American GFR (CKD) >90 (>60 ml/min/1.73 sqM); Albumin 3.1 g/dL (3.5-5.0); Alkaline Phosphatase 53 U/L (38-126); Anion Gap 3 mmol/L; Blood Urea Nitrogen 29 mg/dL (9-20); Calcium 8.5 mg/dL (8.4-10.2); Carbon Dioxide 27 mmol/L (22-30); Chloride 106 mmol/L (98-107); Glucose 111 mg/dL (74-99); Non-African American GFR(CKD) 88 (>60 ml/min/1.73 sqM); Potassium 4.6 mmol/L (3.5-5.1); Sodium 136 mmol/L (137-145); Total Bilirubin 0.2 mg/dL (0.2-1.3); Total Protein 5.5 g/dL (6.3-8.2)
[2020-04-01] MEDS ORDERED: PANTOPRAZOLE 40 MG/10 ML VIAL IVP STA ×4 (02:27→03:07)
[2020-04-01 02:33] LABS: Partial Thromboplastin Time 24.3 sec (22.0-30.0); Prothrombin Time 10.3 sec (9.0-12.0)
[2020-04-01] MEDS ORDERED: NALOXONE 0.4 MG/ML 1 ML VIAL IV PRN (02:35)
--- NOTE | 2020-04-01 02:37 | ED ---
General Adult HPI - General Source: patient, family, RN notes reviewed, old records reviewed Mode of arrival: wheelchair Limitations: no limitations <Mason Garcia - Last Filed: 04/01/20 02:34> <Gautam Barajas - Last Filed: 04/01/20 03:19> - General Chief complaint: GI Bleed Stated complaint: Bleeding Time Seen by Provider: 04/01/20 00:57 - History of Present Illness Initial comments: 59-year-old male patient passed history of colon cancer with a complex Closs infancy for chief complaint of blood noted from his colostomy bag. Patient reports that earlier today first noted some dark material in his ostomy. Patient reports that he noticed that throughout the day and it had the appearanc e of dark red blood. Pt has hx of GI bleed, no use of blood thinners. Patient denies any pain, states that he otherwise feels well, denies any lightheadedness or other complaints. Systemic: Pt denies fatigue, fever/chills, rash. Pt denies weakness, night sweats, weight loss. Neuro: Pt denies headache, visual disturbances, syncope or pre-syncope. HEENT: Pt denies ocular discharge or irritation, otalgia, rhinorrhea, pharyngitis or notable lymphadenopathy. Cardiopulmonary: Pt denies chest pain, SOB, heart palpitations, dyspnea on exertion. Abdominal/GI: Pt denies abdominal pain, n/v/d. : Pt denies dysuria, burning w/ urination, frequency/urgency. Denies new onset urinary or bowel incontinence. MSK: Pt denies myalgia, loss of strength or function in extremities. Neuro: Pt denies new onset weakness, paresthesias. (Mason Garcia) - Related Data Home Medications Medication Instructions Recorded Confirmed Aspirin [Adult Low Dose Aspirin EC] 81 mg PO DAILY 10/03/19 10/03/19 Multivitamins, Thera [Multivitamin 1 tab PO DAILY 10/03/19 10/03/19 (formulary)] Previous Rx's Medication Instructions Recorded Pantoprazole Sodium [Protonix] 40 mg PO AC-BID #60 tablet. 10/07/19 Allergies Allergy/AdvReac Type Severity Reaction Status Date / Time Sulfa (Sulfonamide Allergy Anaphylaxis Verified 04/01/20 00:55 Antibiotics) Review of Systems ROS Other: All systems not noted in ROS Statement are negative. <Mason Garcia - Last Filed: 04/01/20 02:34> ROS Other: All systems not noted in ROS Statement are negative. <Gautam Barajas - Last Filed: 04/01/20 03:19> ROS Statement: Those systems with pertinent positive or pertinent negative responses have been documented in the HPI. Past Medical History Past Medical History: Cancer Additional Past Medical History / Comment(s): colon cancer, hx of sepsis History of Any Multi-Drug Resistant Organisms: None Reported Past Surgical History: Bowel Resection Additional Past Surgical History / Comment(s): liver/rectal colon cancer, Past Anesthesia/Blood Transfusion Reactions: No Reported Reaction Past Psychological History: No Psychological Hx Reported Smoking Status: Never smoker Past Alcohol Use History: None Reported Past Drug Use History: None Reported - Past Family History Father Family Medical History: Cancer <Mason Garica - Last Filed: 04/01/20 02:34> General Exam Limitations: no limitations <Mason Garcia - Last Filed: 04/01/20 02:34> - General Exam Comments Initial Comments: Constitutional: NAD, AOX3, Pt has pleasant affect. HEENT: NC/AT, trachea midline, neck supple, no lymphadenopathy. Posterior pharynx non erythematous, without exudates. External ears appear normal, without discharge. Mucous membranes moist. Eyes PERRLA, EOM intact. There is no scleral icterus. No pallor noted. Cardiopulmonary: RRR, no murmurs, rubs or gallops, no JVD noted. Lungs CTAB in anterior and posterior tompkins. No peripheral edema. Abdominal exam: Abdomen soft and non-distended. Abdomen non-tender to palpation in all 4 quadrants. Bowel sounds active in LLQ. No hepatosplenomegaly. No ecchymosis. Dark red blood noted in ostomy. Neuro: CN II-XII grossly intact. No nuchal rigidity. No raccon eyes, no nelson sign, no hemotympanum. No cervical spinal tenderness. MSK: No posterior calf tenderness bilaterally, homans sign negative bilaterally. Posterior tibialis and radial pulse +2 bilaterally. Sensation intact in upper and lower extremities. Full active ROM in upper and lower extremities, 5/5 stregnth. (Barkach,Mason J) Course Vital Signs 04/01/20 04/01/20 00:50 02:57 Temperature 98.8 F Pulse Rate 102 H 105 H Respiratory 20 18 Rate Blood Pressure 142/79 126/78 O2 Sat by Pulse 100 98 Oximetry Medical Decision Making - Lab Data Result diagrams: 04/01/20 01:58 04/01/20 01:58 <Mason Garcia - Last Filed: 04/01/20 02:34> - Lab Data Result diagrams: 04/01/20 01:58 04/01/20 01:58 <Gautam Barajas - Last Filed: 04/01/20 03:19> - Medical Decision Making 59-year-old male patient passed history of colon cancer with a complex Closs infancy for chief complaint of blood noted from his colostomy bag. Patient reports that earlier today first noted some dark material in his ostomy. Patient reports that he noticed that throughout the day and it had the appearance of dark red blood. Pt has hx of GI bleed, no use of blood thinners. Patient denies any pain, states that he otherwise feels well, denies any lightheadedness or other complaints. Patient will signs displayed a heart rate of 102, afebrile. Physical exam displayed dark red blood noted in ostomy, abdomen soft nontender no ecchymoses. Laboratory investigations revealed positive occult blood, hemoglobin of 10. Patient administered Protonix, type and screen was performed. Patient be admitted for telemetry and GI evaluation. Case discussed with Dr. Barajas. (Mason Garcia) Patient has increased bleeding and ostomy. Vital signs are stable, borderline Tachycardic. He is transfused 1 unit of packed RBCs. He will be admitted to ICU. Case is discussed with the handy worker Dr. Orozco and fisher trap Dr. Lima. (Gautam Barajas) - Lab Data Lab Results 04/01/20 04/01/20 04/01/20 Range/Units 01:01 01:58 01:58 WBC 9.6 (3.8-10.6) k/uL RBC 3.54 L (4.30-5.90) m/uL Hgb 10.0 L (13.0-17.5) gm/dL Hct 31.7 L (39.0-53.0) % MCV 89.6 (80.0-100.0) fL MCH 28.2 (25.0-35.0) pg MCHC 31.4 (31.0-37.0) g/dL RDW 16.0 H (11.5-15.5) % Plt Count 405 (150-450) k/uL Neutrophils % 63 % Lymphocytes % 21 % Monocytes % 11 % Eosinophils % 3 % Basophils % 1 % Neutrophils # 6.0 (1.3-7.7) k/uL Lymphocytes # 2.0 (1.0-4.8) k/uL Monocytes # 1.0 (0-1.0) k/uL Eosinophils # 0.3 (0-0.7) k/uL Basophils # 0.1 (0-0.2) k/uL Hypochromasia Moderate Anisocytosis Slight PT 10.3 (9.0-12.0) sec INR 1.0 (<1.2) APTT 24.3 (22.0-30.0) sec Sodium (137-145) mmol/L Potassium (3.5-5.1) mmol/L Chloride (98-107) mmol/L Carbon Dioxide (22-30) mmol/L Anion Gap mmol/L BUN (9-20) mg/dL Creatinine (0.66-1.25) mg/dL Est GFR (CKD-EPI)AfAm (>60 ml/min/1.73 sqM) Est GFR (CKD-EPI)NonAf (>60 ml/min/1.73 sqM) Glucose (74-99) mg/dL Plasma Lactic Acid Han (0.7-2.0) mmol/L Calcium (8.4-10.2) mg/dL Total Bilirubin (0.2-1.3) mg/dL AST (17-59) U/L ALT (4-49) U/L Alkaline Phosphatase (38-126) U/L Troponin I (0.000-0.034) ng/mL Total Protein (6.3-8.2) g/dL Albumin (3.5-5.0) g/dL Stool Occult Blood Positive (Negative) Blood Type Blood Type Recheck Bld Type Recheck Status Antibody Screen Spec Expiration Date 04/01/20 04/01/20 04/01/20 Range/Units 01:58 01:58 01:58 WBC (3.8-10.6) k/uL RBC (4.30-5.90) m/uL Hgb (13.0-17.5) gm/dL Hct (39.0-53.0) % MCV (80.0-100.0) fL MCH (25.0-35.0) pg MCHC (31.0-37.0) g/dL RDW (11.5-15.5) % Plt Count (150-450) k/uL Neutrophils % % Lymphocytes % % Monocytes % % Eosinophils % % Basophils % % Neutrophils # (1.3-7.7) k/uL Lymphocytes # (1.0-4.8) k/uL Monocytes # (0-1.0) k/uL Eosinophils # (0-0.7) k/uL Basophils # (0-0.2) k/uL Hypochromasia Anisocytosis PT (9.0-12.0) sec INR (<1.2) APTT (22.0-30.0) sec Sodium 136 L (137-145) mmol/L Potassium 4.6 (3.5-5.1) mmol/L Chloride 106 (98-107) mmol/L Carbon Dioxide 27 (22-30) mmol/L Anion Gap 3 mmol/L BUN 29 H (9-20) mg/dL Creatinine 0.94 (0.66-1.25) mg/dL Est GFR (CKD-EPI)AfAm >90 (>60 ml/min/1.73 sqM) Est GFR (CKD-EPI)NonAf 88 (>60 ml/min/1.73 sqM) Glucose 111 H (74-99) mg/dL Plasma Lactic Acid Han 0.8 (0.7-2.0) mmol/L Calcium 8.5 (8.4-10.2) mg/dL Total Bilirubin 0.2 (0.2-1.3) mg/dL AST 26 (17-59) U/L ALT 19 (4-49) U/L Alkaline Phosphatase 53 (38-126) U/L Troponin I <0.012 (0.000-0.034) ng/mL Total Protein 5.5 L (6.3-8.2) g/dL Albumin 3.1 L (3.5-5.0) g/dL Stool Occult Blood (Negative) Blood Type Blood Type Recheck Bld Type Recheck Status Antibody Screen Spec Expiration Date 04/01/20 Range/Units 01:58 WBC (3.8-10.6) k/uL RBC (4.30-5.90) m/uL Hgb (13.0-17.5) gm/dL Hct (39.0-53.0) % MCV (80.0-100.0) fL MCH (25.0-35.0) pg MCHC (31.0-37.0) g/dL RDW (11.5-15.5) % Plt Count (150-450) k/uL Neutrophils % % Lymphocytes % % Monocytes % % Eosinophils % % Basophils % % Neutrophils # (1.3-7.7) k/uL Lymphocytes # (1.0-4.8) k/uL Monocytes # (0-1.0) k/uL Eosinophils # (0-0.7) k/uL Basophils # (0-0.2) k/uL Hypochromasia Anisocytosis PT (9.0-12.0) sec INR (<1.2) APTT (22.0-30.0) sec Sodium (137-145) mmol/L Potassium (3.5-5.1) mmol/L Chloride (98-107) mmol/L Carbon Dioxide (22-30) mmol/L Anion Gap mmol/L BUN (9-20) mg/dL Creatinine (0.66-1.25) mg/dL Est GFR (CKD-EPI)AfAm (>60 ml/min/1.73 sqM) Est GFR (CKD-EPI)NonAf (>60 ml/min/1.73 sqM) Glucose (74-99) mg/dL Plasma Lactic Acid Han (0.7-2.0) mmol/L Calcium (8.4-10.2) mg/dL Total Bilirubin (0.2-1.3) mg/dL AST (17-59) U/L ALT (4-49) U/L Alkaline Phosphatase (38-126) U/L Troponin I (0.000-0.034) ng/mL Total Protein (6.3-8.2) g/dL Albumin (3.5-5.0) g/dL Stool Occult Blood (Negative) Blood Type O Positive Blood Type Recheck O Pos Bld Type Recheck Status No Antibody Screen NEGATIVE Spec Expiration Date 04/04/2020 5931 Disposition Is patient prescribed a controlled substance at d/c from ED?: No <Mason Garcia - Last Filed: 04/01/20 02:34> <Gautam Barajas - Last Filed: 04/01/20 03:19> Clinical Impression: GI bleed Disposition: ADMITTED IP TO THIS [facility] Condition: Serious Referrals: Fox Alvarado MD [Primary Care Provider] - 1-2 days
[2020-04-01 04:04] LABS: Glucose,Whole Blood 122 mg/dL (75-99)
--- NOTE | 2020-04-01 04:27 | P.HPIM ---
History of Present Illness H&P Date: 04/01/20 The patient is a 59-year-old male with a PMH of colon cancer with metastases to the liver, currently in remission, status post right colostomy following with oncologist in [place] presented to the ED with complaints of blood in his ostomy bag. The patient notes that he has been in his usual state of health and had his dinner earlier tonight, an hour after which he noticed maroon-colored blood in his ostomy bag. He became alarmed and subsequently came to the ED. He reports feeling lightheaded when walking though otherwise denied any active complaints. He denied abdominal pain, nausea, vomiting, fever, chills, chest pain, shortness of breath, or headaches. Of note, the patient was previously admitted to the hospital in September 2019 with GI bleeding at which time an EGD had revealed ulcers as a possible source. He underwent an extensive evaluation in the emergency room with hemoglobin 10.0, WBC count 9.6, platelets 45, sodium 136, potassium 4.6, BUN 29, creatinine 0.94, glucose 122, troponin less than 0.012, and stool occult positive. While in the ED, the patient again past large amounts of blood into his ostomy bag. Review of Systems Pertinent positives and negatives as discussed in HPI, a complete review of systems was performed and all other systems are negative. Past Medical History Past Medical History: Cancer Additional Past Medical History / Comment(s): colon cancer, hx of sepsis History of Any Multi-Drug Resistant Organisms: None Reported Past Surgical History: Bowel Resection Additional Past Surgical History / Comment(s): liver/rectal colon cancer, Past Anesthesia/Blood Transfusion Reactions: No Reported Reaction Past Psychological History: No Psychological Hx Reported Smoking Status: Never smoker Past Alcohol Use History: None Reported Past Drug Use History: None Reported - Past Family History Father Family Medical History: Cancer Medications and Allergies Home Medications Medication Instructions Recorded Confirmed Type Aspirin [Adult Low Dose Aspirin EC] 81 mg PO DAILY 10/03/19 10/03/19 History Multivitamins, Thera [Multivitamin 1 tab PO DAILY 10/03/19 10/03/19 History (formulary)] Pantoprazole Sodium [Protonix] 40 mg PO AC-BID #60 tablet. 10/07/19 Rx Allergies Allergy/AdvReac Type Severity Reaction Status Date / Time Sulfa (Sulfonamide Allergy Anaphylaxis Verified 04/01/20 00:55 Antibiotics) Physical Exam Vitals: Vital Signs Temp Pulse Pulse Resp BP Pulse Ox 04/01/20 03:32 98.4 F 92 14 97 04/01/20 02:57 105 H 18 126/78 98 04/01/20 00:50 98.8 F 102 H 20 142/79 100 Intake and Output 03/31/20 03/31/20 04/01/20 14:59 22:59 06:59 Other: Weight 77.111 kg General: non toxic, no distress, appears at stated age, normal weight Derm: no unusual rashes/lesions no unusual ecchymoses, warm, dry Head: atraumatic, normocephalic, symmetric Eyes: EOMI, no lid lag, anicteric sclera, pupils equal round reactive to light ENT: Nose and ears atraumatic, no thrush, no pharyngeal erythema Neck: No thyromegaly, no cervical lymphadenopathy, trachea midline, supple Mouth: no lip lesion, mucus membranes moist Cardiovascular: S1S2 reg, no murmur, positive posterior tibial pulse bilateral, no edema, capillary refill less than 2 seconds Lungs: CTA bilateral, no rhonchi, no rales , no accessory muscle use Abdominal: soft, right sided ostomy bag in place with dark red and clotted blood with pink stoma, nontender to palpation, no guarding, no appreciable organomegaly, normal bowel sounds Ext: no gross muscle atrophy, muscle strength 5 out of 5 in all 4 extremities grossly, no contractures, Neuro: CN II-XI grossly intact, light touch intact all 4 extremities, finger to nose within normal limits, Psych: Alert, oriented, appropriate affect Results CBC & Chem 7: 04/01/20 01:58 04/01/20 01:58 Labs: Abnormal Lab Results - Last 24 Hours (Table) 04/01/20 04/01/20 04/01/20 Range/Units 01:58 01:58 01:58 RBC 3.54 L (4.30-5.90) m/uL Hgb 10.0 L (13.0-17.5) gm/dL Hct 31.7 L (39.0-53.0) % RDW 16.0 H (11.5-15.5) % Sodium 136 L (137-145) mmol/L BUN 29 H (9-20) mg/dL Glucose 111 H (74-99) mg/dL POC Glucose (mg/dL) (75-99) mg/dL Total Protein 5.5 L (6.3-8.2) g/dL Albumin 3.1 L (3.5-5.0) g/dL Crossmatch See Detail 04/01/20 Range/Units 04:02 RBC (4.30-5.90) m/uL Hgb (13.0-17.5) gm/dL Hct (39.0-53.0) % RDW (11.5-15.5) % Sodium (137-145) mmol/L BUN (9-20) mg/dL Glucose (74-99) mg/dL POC Glucose (mg/dL) 122 H (75-99) mg/dL Total Protein (6.3-8.2) g/dL Albumin (3.5-5.0) g/dL Crossmatch Assessment and Plan Plan: Acute blood loss anemia secondary to GI bleeding with history of gastric ulcers -Consult GI -Monitor CBC every 8 hourly -Administer 1 unit of PRBCs -Admitted to the MICU -Nothing by mouth for now -Protonix 40 mg IV every 12 hourly History of colon cancer with metastases to liver, currently in remission -Patient notes he is following with oncologist in [place] -Reports that he had a recent increase in his CEA levels, and is undergoing workup for possible recurrence though not yet confirmed DVT prophylaxis -IPCDs The patient is admitted with an anticipated greater than 2 midnight stay for evaluation of GIB CODE STATUS: Full Code Discussed with: Patient Anticipated discharge date: 2-[address]: Home A total of 40 minutes was spent on the care of this complex patient more than 50% of the time was spent in counseling and care coordination.
[2020-04-01 05:52] LABS: African American GFR (CKD) >90 (>60 ml/min/1.73 sqM); Anion Gap 2 mmol/L; Blood Urea Nitrogen 32 mg/dL (9-20); Calcium 8.3 mg/dL (8.4-10.2); Carbon Dioxide 27 mmol/L (22-30); Chloride 106 mmol/L (98-107); Glucose 105 mg/dL (74-99); Non-African American GFR(CKD) 82 (>60 ml/min/1.73 sqM); Potassium 4.6 mmol/L (3.5-5.1); Sodium 135 mmol/L (137-145)
[2020-04-01 05:53] LABS: Basophils # (A) 0.1 k/uL (0-0.2); Basophils % (A) 1 %; Eosinophils # (A) 0.2 k/uL (0-0.7); Eosinophils % (A) 2 %; HCT 28.2 % (39.0-53.0); HGB 8.7 gm/dL (13.0-17.5); Hypochromasia Marked; Lymphocytes # (A) 1.5 k/uL (1.0-4.8); Lymphocytes % (A) 16 %; MCH 27.6 pg (25.0-35.0); MCHC 30.7 g/dL (31.0-37.0); MCV 89.8 fL (80.0-100.0); Mean Platelet Volume 8.1; Monocytes % (A) 11 %; Neutrophils # (A) 6.3 k/uL (1.3-7.7); Neutrophils % (A) 68 %; Platelet Count 375 k/uL (150-450); RBC 3.14 m/uL (4.30-5.90); RDW 15.6 % (11.5-15.5); WBC 9.2 k/uL (3.8-10.6)
[2020-04-01] MEDS ORDERED: PANTOPRAZOLE 40 MG/10 ML VIAL IV SCH (09:00)
[2020-04-01] MEDS: PANTOPRAZOLE 40 MG/10 ML VIAL IVP SCH ×2 (09:56→21:03)
[2020-04-01] MEDS: SODIUM CHLORIDE 0.9% 1,000 ML IV SCH (10:30)
[2020-04-01 12:14] LABS: Reticulocyte % 3.2 % (0.5-2.0)
--- NOTE | 2020-04-01 12:51 | P.CNPUL ---
History of Present Illness Consult date: 04/01/20 Requesting physician: Omid Flores Reason for consult: other (Upper GI bleeding) Chief complaint: Maroon colored blood in ostomy bag. History of present illness: This is a 59-year-old white male with history of colon cancer, previous metastasis to the liver, previous right sided colostomy, patient is now being followed by an oncologist in [place] and he was recently seen at the [facility] for his elevated carcinoembryonic antigen. Patient was considering reversal of his colostomy, but because of his elevated CEA, plans for surgery had been placed on hold. Patient has been taking recently ibuprofen for vague discomfort in the left knee joint, and over the last day has been noticing black stools in the ostomy bag. Patient was also complaining of generalized weakness and fatigue, he had no abdominal pain, no nausea, no vomiting, no fever, no chills, no shortness of breath. His hemoglobin back in September of 2019 was just above 14. However on this admission his hemoglobin was 10. Considering his symptoms, significant drop in his hemoglobin, and considering the findings of black stools in the colostomy bag, patient was admitted, and I was asked to see him on consultation. Patient had previous history of gastric ulcer, and has been treated in the past with PPI medications. And has been compliant. However patient has been taking ibuprofen recently denies any alcohol abuse, denies any smoking history. Patient was seen by gastroenterology, and he is supposed to have EGD today. Repeat hemoglobin since he has been in the is 8.7. Patient received 1 unit of packed RBCs since admission. Review of Systems Constitutional: Denies weight loss, denies fever, denied chills. HEENT: Negative. Pulmonary: Denies any shortness of breath cough or wheezing. Cardiac: Denies any chest pain or orthopnea PND or palpitations. GI: As noted in HPI. Genitourinary: Denies any dysuria frequency urgency. Denies any hematuria. Musculoskeletal: Vague arthritic pains especially in the left knee. Skin: Negative Endocrine: Denies any heat or cold intolerance. Hematologic: Previous history of upper GI bleeding secondary to gastric ulcer. Psychiatric: Denies any symptoms of depression. Neurologic: Denies any headache blurred vision or dizziness. Past Medical History Past Medical History: Cancer Additional Past Medical History / Comment(s): colon cancer, hx of sepsis History of Any Multi-Drug Resistant Organisms: None Reported Past Surgical History: Bowel Resection Additional Past Surgical History / Comment(s): liver/rectal colon cancer, Past Anesthesia/Blood Transfusion Reactions: No Reported Reaction Past Psychological History: No Psychological Hx Reported Smoking Status: Never smoker Past Alcohol Use History: None Reported Past Drug Use History: None Reported - Past Family History Father Family Medical History: Cancer Medications and Allergies Home Medications Medication Instructions Recorded Confirmed Type Aspirin [Adult Low Dose Aspirin EC] 81 mg PO DAILY 10/03/19 04/01/20 History Multivitamins, Thera [Multivitamin 1 tab PO DAILY 10/03/19 04/01/20 History (formulary)] Pantoprazole Sodium [Protonix] 40 mg PO HS 04/01/20 04/01/20 History Allergies Allergy/AdvReac Type Severity Reaction Status Date / Time Sulfa (Sulfonamide Allergy Anaphylaxis Verified 04/01/20 08:30 Antibiotics) Physical Exam Vitals: Vital Signs Temp Pulse Pulse Resp BP Pulse Ox 04/01/20 12:10 98.3 F 96 24 117/55 98 04/01/20 12:00 89 9 L 123/82 98 04/01/20 11:50 98 20 123/82 98 04/01/20 11:40 98 19 123/82 97 04/01/20 11:30 95 46 H 123/82 97 04/01/20 11:20 84 57 H 123/82 97 04/01/20 11:10 93 37 H 123/82 98 04/01/20 11:00 116/83 04/01/20 10:50 116/83 04/01/20 10:40 93 7 L 116/83 97 04/01/20 10:34 98.7 F 81 17 123/51 04/01/20 10:30 100 21 116/83 97 04/01/20 10:20 89 29 H 116/83 99 04/01/20 10:10 89 108 H 116/83 97 04/01/20 10:00 100 73 H 97 04/01/20 09:50 82 51 H 96 04/01/20 09:40 89 16 97 04/01/20 09:30 85 32 H 98 04/01/20 09:20 88 24 91 L 04/01/20 09:00 113/76 04/01/20 08:50 90 113/76 96 04/01/20 08:40 113/76 99 04/01/20 08:30 113/76 98 04/01/20 08:20 90 113/76 99 04/01/20 08:10 92 21 110/51 98 04/01/20 08:00 98.7 F 81 93 21 123/51 97 04/01/20 07:50 93 18 123/51 98 04/01/20 07:40 98.7 F 81 17 123/51 96 04/01/20 07:30 96 24 111/85 98 04/01/20 07:20 88 6 L 111/85 96 04/01/20 07:10 80 4 L 107/62 96 04/01/20 07:00 82 9 L 134/93 96 04/01/20 06:50 90 9 L 134/93 97 04/01/20 06:40 24 124/89 96 04/01/20 06:30 108 H 10 L 107/63 99 04/01/20 06:20 99 9 L 107/63 96 04/01/20 06:10 93 8 L 130/77 96 04/01/20 05:51 98.4 F 87 12 117/68 96 04/01/20 05:21 98.6 F 88 11 L 100/56 97 04/01/20 05:11 98.4 F 92 10 L 122/71 97 04/01/20 04:00 92 04/01/20 03:32 98.4 F 92 14 97 04/01/20 02:57 105 H 18 126/78 98 04/01/20 00:50 98.8 F 102 H 20 142/79 100 Intake and Output 03/31/20 04/01/20 04/01/20 22:59 06:59 14:59 Intake Total 0 310 Output Total 0 1350 Balance 0 -1040 Intake: Blood Product 0 310 Rc As-1 Unit 0 310 [id number] Output: Urine 0 950 Stool 400 Other: Weight 77.111 kg Results - Laboratory Findings CBC and BMP: 04/01/20 04:38 04/01/20 04:38 PT/INR, D-dimer PT 10.3 sec (9.0-12.0) 04/01/20 01:58 INR 1.0 (<1.2) 05/22/20 01:58 Abnormal lab findings: Abnormal Labs 04/01/20 04/01/20 04/01/20 01:58 01:58 01:58 RBC 3.54 L Hgb 10.0 L Hct 31.7 L MCHC RDW 16.0 H Retic Count Sodium 136 L BUN 29 H Glucose 111 H POC Glucose (mg/dL) Calcium Total Protein 5.5 L Albumin 3.1 L Crossmatch See Detail 04/01/20 04/01/20 04/01/20 04:02 04:38 04:38 RBC 3.14 L Hgb 8.7 L Hct 28.2 L MCHC 30.7 L RDW 15.6 H Retic Count Sodium 135 L BUN 32 H Glucose 105 H POC Glucose (mg/dL) 122 H Calcium 8.3 L Total Protein Albumin Crossmatch 04/01/20 04:38 RBC Hgb Hct MCHC RDW Retic Count 3.2 H Sodium BUN Glucose POC Glucose (mg/dL) Calcium Total Protein Albumin Crossmatch Assessment and Plan Assessment: Impression: Acute blood loss anemia secondary to upper GI bleeding most likely secondary to reactivation of gastric ulcer. Most likely exacerbated by recent nonsteroidal anti-inflammatory drug/ibuprofen. History of colon cancer with metastasis to the liver History of colostomy. Elevated carcinoembryonic antigen. Recommendation: Continue to monitor in the ICU. Transfuse to keep hemoglobin above 7 as needed. Serial hemoglobin and hematocrit. Protonix 40 mg IV push twice a day. GI to see on consultation and EGD likely today. Discontinue any nonsteroidal and the inflammatory drugs. We'll continue to follow. Time with Patient: Greater than 30
[2020-04-01] MEDS ORDERED: ACETAMINOPHEN TAB 325 MG TAB PO PRN (13:45)
--- NOTE | 2020-04-01 13:49 | P.PN ---
Progress Note - Text Progress Note Date: 04/01/20 The patient is a 59-year-old male with a PMH of colon cancer with metastases to the liver, currently in remission, status post right colostomy following with oncologist in [place] presented to the ED with complaints of blood in his ostomy bag. Of note, the patient was previously admitted to the hospital in September 2019 with GI bleeding at which time an EGD had revealed ulcers as a possible source. He underwent an extensive evaluation in the emergency room with hemoglobin 10.0, WBC count 9.6, platelets 45, sodium 136, potassium 4.6, BUN 29, creatinine 0.94, glucose 122, troponin less than 0.012, and stool occult positive. While in the ED, the patient again past large amounts of blood into his ostomy bag. Patient was seen. Patient reports black liquid filling up in his ostomy bag. He denies any abdominal pain. He denies any chest pain, shortness of breath, palpitations or dizziness. He is in no acute distress. Patient was transfused 1 unit PRBC. Repeat hemoglobin went down from 10-8.7. Plans for endoscopy today. Gastroenterology following. Continue Protonix 40 mg IV twice a day. Avoid NSAIDs. Tylenol as needed for pain management. Continue telemetry monitoring. Continue serial CBC.
[2020-04-01] MEDS ORDERED: PROPOFOL 10 MG/ML 20 ML VIAL IV ONE (14:56)
[2020-04-01] MEDS ORDERED: IV FLUID CONTINUATION 1,000 ML IV ONE ×2 (15:08)
--- NOTE | 2020-04-01 15:19 | P.PCN ---
Date of Procedure: 04/01/20 Procedure(s) Performed: BRIEF HISTORY: Patient is a 59-year-old, pleasant, white male admitted hospital with black tarry stools through the colostomy bag that started yesterday morning. He came to the ER and received 1 unit of blood transfusion for hemoglobin of 10. He had a similar episode with acute upper GI bleed in September 2019 and had an upper endoscopy done by which revealed gastric ulcer at the anastomosis. Since then he has been maintained on Nexium 40 mg daily. He denies any abdominal pain. No nausea vomiting. History of rectal cancer for which she underwent neoadjuvant chemotherapy followed by surgery with colostomy which was subsequently reversed. Couple of weeks later he had wound dehiscence and had colostomy then again . PROCEDURE PERFORMED: Esophagogastroduodenoscopy with biopsy and Endo Clip placement. PREOPERATIVE DIAGNOSIS: Acute GI bleed. IV sedation per anesthesia. PROCEDURE: After informed consent was obtained, the patient was brought into the endoscopy unit. IV sedation was administered by Anesthesia under continuous monitoring. Initially the Olympus GIF-140 video endoscope was inserted into the mouth. Esophagus intubated without any difficulty. It was gradually advanced into the into the stomach and there was gastro jejunal anastomosis identified. Just distal to the anastomosis there was a 3 cm superficial ulcer with a visible vessel noted. There was a fresh clot identified. The heart was removed. The visible vessel was exposed and at this time 2 endoclips were placed on the visible vessel with good hemostasis. There was some thickened mucosal folds in the gastric body which was biopsied. The scope was then withdrawn into the esophagus. The GE junction was located at 39 cm from the incisors. Small sliding Hiatal hernia noted. The esophagus appeared normal. There were no erosions or ulcerations seen and the patient tolerated the procedure well. IMPRESSION: 1. 3-4 cm superficial anastomotic ulcer just distal to the gastrojejunal anastomosis with a visible vessel status post Endo Clip placement as described above. 2. Small Hiatal hernia. RECOMMENDATIONS: The findings of this examination were discussed with the patient. He will be started on clear liquid diet today. Monitor CBC every 12 hours. Continue Protonix 40 mg every 12 hours..
--- NOTE | 2020-04-01 18:02 | P.CONS ---
<Jayashree Brooks - Last Filed: 04/01/20 17:55> History of Present Illness - Reason for Consult Consult date: 04/01/20 colorectal cancer, gi bleed Requesting physician: Mason Garcia - Chief Complaint GI bleeding - History of Present Illness This is a very nice patient who was found to have rectal polyp during routine screening colonoscopy done on 06/08/2013 which was resected,the pathology revealed moderately differentiated adenocarcinoma arising in an adenoma and extending to inked. He had a sigmoidoscopy on 07/07/2013 and multiple biopsies were taken from the site of the previous polyp which all came back with reactive changes,no malignancy. The patient was seen by Dr. White in 07/24. As he had a T1 tumor that appeared to be completely resected transanally, Dr. White agreed that the plan for surveillance was appropriate. The patient however did not follow-up with surveillance colonoscopies as rec ommended. He was referred to Dr. alba in 03/28 by his PCP and had a repeat colonoscopy on 04/03/18 , that found a suspicious lesion at 8 cm (the same side as the previous). Biopsies revealed high-grade dysplasia but not overt malignancy. the patient was referred for an endoscopic ultrasound that was performed on 04/15/18. This showed the mass to be predominantly T2, with a section of it showing T3 invasion. None of the adjacent nodes appear to be involved. The patient's case was discussed in the [facility]. As treatment for T3 and higher involves chemotherapy, which could not be administered without a definite diagnosis of malignancy, repeat biopsy was recommended. This was done via sigmoidoscopy on 05/01/18 confirming a moderately differentiated adenocarcinoma. As discussed during the MDC, he had staging studies with CT scan of the chest abdomen and pelvis on 04/28/18. This showed a hypodense subcentimeter lesion with ill-defined borders in the upper left lobe o f the liver, with metastatic disease not excluded. The patient was referred here for further evaluation and seen for this new diagnosis on 05/08/18. His CEA level was mildly elevated at 19.8. His MRI of the liver was indeterminate re the lesion, with no other lesions seen. PET scan was negative He was referred for a liver biopsy, which was done at [facility] on 06/19/18. THis was positive for adenoca c/w colon primary. He had a PORT placed on 06/27/18. He was started on FOLFOX and is s/p 6 cycl es. Vectibix was added with C 3. KRAS was wild type.Treatment was held in 09/28. He proceeded to liver and rectal resection in 10/28 at [facility]. He treated surgery well. He decided on reversal 1st and had that in 01/27. Unfortunately he developed an anastomotic leak and sepsis per him. He was [facility] in [place], [place], where he was staying with family. He has had multiple surgeries, including ostomy replacement. His most recent surgery was in 03/29, per him. He came back to the office to establish f/u in late 05/29 He had restaging labs and CT scans, with CEA 2.5. Scans showed a 4.4 cm le ene in the left dome area, with surrounding surgical clips. This appeared to be more likely post surgical defect PET scan in 07/30 showed uptake only in the RLQ/rt pararenal space which appeared to be inflammatory. He was referred to the [facility] to get an opinion re any benefit of chemo at that point, with such a delay post surgery. He , however , did not go as he lost his insurance he was admitted to [facility] for a GIB in 09/29 due to a gastric ulcer, treated endoscopically. hemoglobin had dropped as a result when seen in 11/30. CEA had shown a mild increased into the 9 range which is nonspecific. He had repeat CT scans done on 12/03/19 which showed stable findings.He was referred again to the [facility] , as he now had insurance, but states that he has not heard from them. He was last seen by Dr. Andrade in office in December of this year. At that time he appeared clinically stable his hemoglobin has recovered to 12.9. He was being assessed at [place] for ostomy reversal. He had not had this performed. Surgeon over they recommended a PET scan, due to the increase in CEA (now 13). As stated, CT scans did not show any evidence of recurrence. PET scan has been performed but the result is not yet available. - And long discussion with the patient and his sister regarding the current situation and further plans. The [facility] were contacted again, as stated that they will call the patient today. Recommendation at that time was to proceed with the surgery and continue observation. 04/01/20: He now presents to [facility] for blood in his ostomy bag. He was asymptomatic with the exception of light headed and dizzy with quick standing. On admission his hemoglobin 10.0, WBC count 9.6, platelets 45, sodium 136, potassium 4.6, BUN 29, creatinine 0.94, stool occult positive. While in the ED, the patient again past large amounts of blood into his ostomy bag per medical record. He is status post EGD today with Dr. Lima. Review of Systems A 14 point review of systems assessed and completed and all negative except HPI Past Medical History Past Medical History: Cancer Additional Past Medical History / Comment(s): colon cancer, hx of sepsis History of Any Multi-Drug Resistant Organisms: None Reported Past Surgical History: Bowel Resection Additional Past Surgical History / Comment(s): liver/rectal colon cancer, Past Anesthesia/Blood Transfusion Reactions: No Reported Reaction Past Psychological History: No Psychological Hx Reported Smoking Status: Never smoker Past Alcohol Use History: None Reported Past Drug Use History: None Reported - Past Family History Father Family Medical History: Cancer Medications and Allergies Home Medications Medication Instructions Recorded Confirmed Type Aspirin [Adult Low Dose Aspirin EC] 81 mg PO DAILY 10/03/19 04/01/20 History Multivitamins, Thera [Multivitamin 1 tab PO DAILY 10/03/19 04/01/20 History (formulary)] Pantoprazole Sodium [Protonix] 40 mg PO HS 04/01/20 04/01/20 History Allergies Allergy/AdvReac Type Severity Reaction Status Date / Time Sulfa (Sulfonamide Allergy Anaphylaxis Verified 04/01/20 08:30 Antibiotics) Physical Exam Vitals: Vital Signs Temp Pulse Pulse Resp BP Pulse Ox 04/01/20 17:10 87 32 H 105/57 95 04/01/20 17:00 96 96 32 H 130/74 96 04/01/20 16:50 99 16 112/71 97 04/01/20 16:40 96 12 / 98 04/01/20 16:30 98 18 112/71 98 04/01/20 16:20 133 H 22 112/71 98 04/01/20 16:10 105 H 23 112/71 96 04/01/20 16:00 112/04/01/20 15:50 112/04/01/20 15:40 112/04/01/20 15:00 98.6 F 76 15 112/71 04/01/20 14:30 112/71 04/01/20 14:20 90 20 112/71 97 04/01/20 14:10 103 H 57 H 112/71 97 04/01/20 14:00 90 15 124/78 96 04/01/20 13:50 96 25 H 124/78 96 04/01/20 13:40 124/78 04/01/20 13:30 96 20 124/78 98 04/01/20 13:20 98 22 124/78 97 04/01/20 13:10 100 42 H 124/78 97 04/01/20 13:00 96 15 124/78 96 04/01/20 12:50 101 H 18 117/55 98 04/01/20 12:40 88 29 H 117/55 96 04/01/20 12:30 80 11 L 117/55 97 04/01/20 12:20 95 18 117/55 99 04/01/20 12:10 98.3 F 96 24 117/55 98 04/01/20 12:00 89 98 22 123/82 98 04/01/20 11:50 98 20 123/82 98 04/01/20 11:40 98 19 123/82 97 04/01/20 11:30 95 46 H 123/82 97 04/01/20 11:20 84 57 H 123/82 97 04/01/20 11:10 93 37 H 123/82 98 04/01/20 11:00 116/83 04/01/20 10:50 116/83 04/01/20 10:40 93 7 L 116/83 97 04/01/20 10:34 98.7 F 81 17 123/51 04/01/20 10:30 100 21 116/83 97 04/01/20 10:20 89 29 H 116/83 99 04/01/20 10:10 89 108 H 116/83 97 04/01/20 10:00 100 73 H 97 04/01/20 09:50 82 51 H 96 04/01/20 09:40 89 16 97 04/01/20 09:30 85 32 H 98 04/01/20 09:20 88 24 91 L 04/01/20 09:00 113/76 04/01/20 08:50 90 113/76 96 04/01/20 08:40 113/76 99 04/01/20 08:30 113/76 98 04/01/20 08:20 90 113/76 99 04/01/20 08:10 92 21 110/51 98 04/01/20 08:00 98.7 F 81 93 21 123/51 97 04/01/20 07:50 93 18 123/51 98 04/01/20 07:40 98.7 F 81 17 123/51 96 04/01/20 07:30 96 24 111/85 98 04/01/20 07:20 88 6 L 111/85 96 04/01/20 07:10 80 4 L 107/62 96 04/01/20 07:00 82 9 L 134/93 96 04/01/20 06:50 90 9 L 134/93 97 04/01/20 06:40 24 124/89 96 04/01/20 06:30 108 H 10 L 107/63 99 04/01/20 06:20 99 9 L 107/63 96 04/01/20 06:10 93 8 L 130/77 96 04/01/20 05:51 98.4 F 87 12 117/68 96 04/01/20 05:21 98.6 F 88 11 L 100/56 97 04/01/20 05:11 98.4 F 92 10 L 122/71 97 04/01/20 04:00 92 04/01/20 03:32 98.4 F 92 14 97 04/01/20 02:57 105 H 18 126/78 98 04/01/20 00:50 98.8 F 102 H 20 142/79 100 Intake and Output 04/01/20 04/01/20 04/01/20 06:59 14:59 22:59 Intake Total 0 460 250 Output Total 0 1600 1150 Balance 0 -1140 -900 Intake: IV 150 250 Sodium Chloride 0.9% 1, 150 150 000 ml @ 50 mls/hr IV . Q20H [facility] Rx#:[id number] Blood Product 0 310 Rc As-1 Unit 0 310 [id number] Output: Urine 0 950 400 Stool 650 750 Other: Weight 77.111 kg Gen: Alert, NAD Head: ATNC Neck: Supple Lungs: Mild increased effort Heart: Tachy Abd: Ostomy Ext: No edema Skin: No rash Mood: Calm Results CBC & Chem 7: 04/01/20 04:38 04/01/20 04:38 Labs: Abnormal Lab Results - Last 24 Hours (Table) 04/01/20 04/01/20 04/01/20 Range/Units 01:58 01:58 01:58 RBC 3.54 L (4.30-5.90) m/uL Hgb 10.0 L (13.0-17.5) gm/dL Hct 31.7 L (39.0-53.0) % MCHC (31.0-37.0) g/dL RDW 16.0 H (11.5-15.5) % Retic Count (0.5-2.0) % Sodium 136 L (137-145) mmol/L BUN 29 H (9-20) mg/dL Glucose 111 H (74-99) mg/dL POC Glucose (mg/dL) (75-99) mg/dL Calcium (8.4-10.2) mg/dL Total Protein 5.5 L (6.3-8.2) g/dL Albumin 3.1 L (3.5-5.0) g/dL Crossmatch See Detail 04/01/20 04/01/20 04/01/20 Range/Units 04:02 04:38 04:38 RBC 3.14 L (4.30-5.90) m/uL Hgb 8.7 L (13.0-17.5) gm/dL Hct 28.2 L (39.0-53.0) % MCHC 30.7 L (31.0-37.0) g/dL RDW 15.6 H (11.5-15.5) % Retic Count (0.5-2.0) % Sodium 135 L (137-145) mmol/L BUN 32 H (9-20) mg/dL Glucose 105 H (74-99) mg/dL POC Glucose (mg/dL) 122 H (75-99) mg/dL Calcium 8.3 L (8.4-10.2) mg/dL Total Protein (6.3-8.2) g/dL Albumin (3.5-5.0) g/dL Crossmatch 04/01/20 Range/Units 04:38 RBC (4.30-5.90) m/uL Hgb (13.0-17.5) gm/dL Hct (39.0-53.0) % MCHC (31.0-37.0) g/dL RDW (11.5-15.5) % Retic Count 3.2 H (0.5-2.0) % Sodium (137-145) mmol/L BUN (9-20) mg/dL Glucose (74-99) mg/dL POC Glucose (mg/dL) (75-99) mg/dL Calcium (8.4-10.2) mg/dL Total Protein (6.3-8.2) g/dL Albumin (3.5-5.0) g/dL Crossmatch Assessment and Plan Plan: Assessment and Recommendations: Normocytic Anemia: Secondary to GI blood loss - Iron, B12, LDH, Retic ordered - Transfuse less than 7 - Status Post EGD with Biopsy per GI Hx: Metastatic Colorectal Cancer: - Recent PET SOTERO - On Surveillance - Detailed history in HPI - Check CEA - Restaging Scans physician Attest: I have assessed and completed the full history and physical of this patient and agree with above dictation, dictated as a scribe. <Francis Andrade - Last Filed: 04/01/20 18:15> History of Present Illness - History of Present Illness as above. His PET scan in 12/30 did not show any evidence of metastatic disease with some uptake noted in the colon. The patient's is currently had a colonoscopy in months on, which was negative. After multiple referrals, he did ultimately establish follow-up at the [facility] with Dr. Sen. He is currently having medical oncology follow-up with him. There has been concern for recurrent disease because of elevated CEA. However imaging as noted above (computed tomography scan and PET scan), colonoscopy, as well as repeat CAT scans according to the patient, at the [facility] have not shown any obvious recurrence. He had an MRI on 03/29/20 at the [facility] and is awaiting results. Physical Exam Vitals: Vital Signs Temp Pulse Pulse Resp BP Pulse Ox 04/01/20 17:10 87 32 H 105/57 95 04/01/20 17:00 96 96 32 H 130/74 96 04/01/20 16:50 99 16 112/71 97 04/01/20 16:40 96 12 112/71 98 04/01/20 16:30 98 18 112/71 98 04/01/20 16:20 133 H 22 112/71 98 04/01/20 16:10 105 H 23 112/71 96 04/01/20 16:00 112/71 04/01/20 15:50 112/71 04/01/20 15:40 112/71 04/01/20 15:00 98.6 F 76 15 112/71 04/01/20 14:30 112/71 04/01/20 14:20 90 20 112/71 97 04/01/20 14:10 103 H 57 H 112/71 97 04/01/20 14:00 90 15 124/78 96 04/01/20 13:50 96 25 H 124/78 96 04/01/20 13:40 124/78 04/01/20 13:30 96 20 124/78 98 04/01/20 13:20 98 22 124/78 97 04/01/20 13:10 100 42 H 124/78 97 04/01/20 13:00 96 15 124/78 96 04/01/20 12:50 101 H 18 117/55 98 04/01/20 12:40 88 29 H 117/55 96 04/01/20 12:30 80 11 L 117/55 97 04/01/20 12:20 95 18 117/55 99 04/01/20 12:10 98.3 F 96 24 117/55 98 04/01/20 12:00 89 98 22 123/82 98 04/01/20 11:50 98 20 123/82 98 04/01/20 11:40 98 19 123/82 97 04/01/20 11:30 95 46 H 123/82 97 04/01/20 11:20 84 57 H 123/82 97 04/01/20 11:10 93 37 H 123/82 98 04/01/20 11:00 116/83 04/01/20 10:50 116/83 04/01/20 10:40 93 7 L 116/83 97 04/01/20 10:34 98.7 F 81 17 123/51 04/01/20 10:30 100 21 116/83 97 04/01/20 10:20 89 29 H 116/83 99 04/01/20 10:10 89 108 H 116/83 97 04/01/20 10:00 100 73 H 97 04/01/20 09:50 82 51 H 96 04/01/20 09:40 89 16 97 04/01/20 09:30 85 32 H 98 04/01/20 09:20 88 24 91 L 04/01/20 09:00 113/76 04/01/20 08:50 90 113/76 96 04/01/20 08:40 113/76 99 04/01/20 08:30 113/76 98 04/01/20 08:20 90 113/76 99 04/01/20 08:10 92 21 110/51 98 04/01/20 08:00 98.7 F 81 93 21 123/51 97 04/01/20 07:50 93 18 123/51 98 04/01/20 07:40 98.7 F 81 17 123/51 96 04/01/20 07:30 96 24 111/85 98 04/01/20 07:20 88 6 L 111/85 96 04/01/20 07:10 80 4 L 107/62 96 04/01/20 07:00 82 9 L 134/93 96 04/01/20 06:50 90 9 L 134/93 97 04/01/20 06:40 24 124/89 96 04/01/20 06:30 108 H 10 L 107/63 99 04/01/20 06:20 99 9 L 107/63 96 04/01/20 06:10 93 8 L 130/77 96 04/01/20 05:51 98.4 F 87 12 117/68 96 04/01/20 05:21 98.6 F 88 11 L 100/56 97 04/01/20 05:11 98.4 F 92 10 L 122/71 97 04/01/20 04:00 92 04/01/20 03:32 98.4 F 92 14 97 04/01/20 02:57 105 H 18 126/78 98 04/01/20 00:50 98.8 F 102 H 20 142/79 100 Intake and Output 04/01/20 04/01/20 04/01/20 06:59 14:59 22:59 Intake Total 0 460 300 Output Total 0 1600 1150 Balance 0 -1140 -850 Intake: IV 150 300 Sodium Chloride 0.9% 1, 150 200 000 ml @ 50 mls/hr IV . Q20H [facility] Rx#:[id number] Blood Product 0 310 Rc As-1 Unit 0 310 [id number] Output: Urine 0 950 400 Stool 650 750 Other: Weight 77.111 kg - Gastrointestinal right lower quadrant ostomy, with black stools General gastrointestinal: normal bowel sounds, soft Results CBC & Chem 7: 04/01/20 04:38 04/01/20 04:38 Labs: Abnormal Lab Results - Last 24 Hours (Table) 04/01/20 04/01/20 04/01/20 Range/Units 01:58 01:58 01:58 RBC 3.54 L (4.30-5.90) m/uL Hgb 10.0 L (13.0-17.5) gm/dL Hct 31.7 L (39.0-53.0) % MCHC (31.0-37.0) g/dL RDW 16.0 H (11.5-15.5) % Retic Count (0.5-2.0) % Sodium 136 L (137-145) mmol/L BUN 29 H (9-20) mg/dL Glucose 111 H (74-99) mg/dL POC Glucose (mg/dL) (75-99) mg/dL Calcium (8.4-10.2) mg/dL Total Protein 5.5 L (6.3-8.2) g/dL Albumin 3.1 L (3.5-5.0) g/dL Crossmatch See Detail 04/01/20 04/01/20 04/01/20 Range/Units 04:02 04:38 04:38 RBC 3.14 L (4.30-5.90) m/uL Hgb 8.7 L (13.0-17.5) gm/dL Hct 28.2 L (39.0-53.0) % MCHC 30.7 L (31.0-37.0) g/dL RDW 15.6 H (11.5-15.5) % Retic Count (0.5-2.0) % Sodium 135 L (137-145) mmol/L BUN 32 H (9-20) mg/dL Glucose 105 H (74-99) mg/dL POC Glucose (mg/dL) 122 H (75-99) mg/dL Calcium 8.3 L (8.4-10.2) mg/dL Total Protein (6.3-8.2) g/dL Albumin (3.5-5.0) g/dL Crossmatch 04/01/20 Range/Units 04:38 RBC (4.30-5.90) m/uL Hgb (13.0-17.5) gm/dL Hct (39.0-53.0) % MCHC (31.0-37.0) g/dL RDW (11.5-15.5) % Retic Count 3.2 H (0.5-2.0) % Sodium (137-145) mmol/L BUN (9-20) mg/dL Glucose (74-99) mg/dL POC Glucose (mg/dL) (75-99) mg/dL Calcium (8.4-10.2) mg/dL Total Protein (6.3-8.2) g/dL Albumin (3.5-5.0) g/dL Crossmatch Comments: endoscopy procedure note reviewed Assessment and Plan Plan: as above - The patient had recurrent GI bleeding with EGD showing also with exposed was just distal to the gastrojejunal anastomosis. The patient had clipping of the vessel. - Order iron infusion The patient is currently on follow-up for his history of colon cancer at the [facility] with Dr. Sen, with diagnostic and therapeutic circumstances so far as noted in the HPI. Results of most recent MRI are not known. Prior to that imaging studies, as well as colonoscopy had not shown any evident disease though he continued to have variably elevated CEA. he was advised to continue follow-up with Dr. Sen postdischarge.
--- NOTE | 2020-04-01 18:56 | CONS ---
CONSULTATION DATE OF DICTATION: 04/01/2020 REASON FOR CONSULTATION: Acute GI bleed. HISTORY OF PRESENT ILLNESS: The patient is a 59-year-old pleasant white male who came into the emergency room yesterday after he noticed significant amount of black tarry stools in his colostomy bag. He was somewhat lightheaded and dizzy. When he came to the emergency room his hemoglobin was 10 g/dL. He was slightly hypotensive. He was given a unit of blood transfusion and was transferred to the intensive care unit. The patient denies any abdominal pain; reports no nausea or vomiting. All through the night he did have some blood in the colostomy bag which was black and tarry. His initial hemoglobin was 10 and subsequently it dropped to 8.6 g/dL. The patient had a similar episode in September of 2019 when he presented with an acute upper GI bleed. He had an upper endoscopy done by Dr. Jamison that revealed a gastrojejunal anastomotic ulcer, and an Endoclip was placed. The patient has been on Nexium 20 mg daily since then. He denies any NSAID use. He has a history of rectal cancer with liver metastasis. He underwent neoadjuvant chemoradiation followed by resection with colostomy and liver lesion resected, too. Subsequently he developed wound dehiscence and hence the colostomy was placed again. He was scheduled to have a reversal of the colostomy in December of this year, but that has not happened so far. PAST MEDICAL HISTORY: Rectal cancer, as mentioned above, and a gastric ulcer. PAST SURGICAL HISTORY: Liver and rectal cancer resection. MEDICATIONS: Medications at home are aspirin, multivitamin, Protonix. ALLERGIES: SULFA. SOCIAL HISTORY: No smoking. No alcohol use. FAMILY HISTORY: Father had some kind of cancer. REVIEW OF SYSTEMS: CARDIOPULMONARY: No chest pain or shortness of breath. GENITOURINARY: No dysuria or hematuria. MUSCULOSKELETAL: Unremarkable. SKIN: Unremarkable. ENDOCRINE: Unremarkable. PSYCHIATRIC: Unremarkable. NEUROLOGY: Unremarkable. ENT/VISION: Unremarkable. CONSTITUTIONAL: No recent weight loss. No fever, chills, night sweats. PHYSICAL EXAMINATION: Appears comfortable. No apparent distress. Vital signs are stable. Blood pressure 126/78, pulse rate 105, temperature 98.4. HEENT examination unremarkable. Conjunctivae pink. Sclerae anicteric. Oral cavity no lesions. NECK: No JVD or lymph node enlargement. CHEST: Clear to auscultation. HEART: Regular rate and rhythm. ABDOMEN: Soft. Bowel sounds are positive. No organomegaly. EXTREMITIES: No pedal edema. SKIN: No rashes. NEUROLOGIC: Alert and oriented x3. No focal deficits. Colostomy bag has black tarry stool. LABS: Labs done at the time of admission to the hospital showed WBC 9.6, hemoglobin 10, platelets 405. Repeat hemoglobin this morning is 8.7, status post one unit of blood transfusion. BUN 29, creatinine 1.94. Stool occult blood positive. IMPRESSION: 1. Acute gastrointestinal bleed, possibly upper in etiology. The patient had an episode of acute upper GI bleed in September of 2019, at which time an upper endoscopy by Dr. Jamison revealed a gastric anastomotic ulcer. The patient since then has been maintained on Protonix 40 mg daily. He denies any NSAID use. Possible recurrent ulcer bleeding. He is hemodynamically stable. Last hemoglobin 8.6 after one unit of blood transfusion. 2. History of metastatic rectal cancer, status post neoadjuvant chemoradiation followed by surgery and liver lesion resection, now with colostomy. RECOMMENDATIONS: 1. Will continue with Protonix 40 mg q.12 hours. 2. CBC every 6 hours. 3. Transfuse if hemoglobin is less than 7. 4. Will proceed with an upper endoscopy today. Discussed with the patient risks, benefits and complications, and he is agreeable to it. Thank you for this consultation. TIFFANY / ABBY: [id number] /
[2020-04-01 19:32] LABS: HCT 27.7 % (39.0-53.0); HGB 8.8 gm/dL (13.0-17.5); Hypochromasia Marked; MCH 28.3 pg (25.0-35.0); MCHC 31.6 g/dL (31.0-37.0); MCV 89.7 fL (80.0-100.0); Mean Platelet Volume 7.4; Platelet Count 345 k/uL (150-450); RBC 3.09 m/uL (4.30-5.90); RDW 15.7 % (11.5-15.5); WBC 11.1 k/uL (3.8-10.6)
[2020-04-01 19:59] LABS: % Iron Saturation 29.84 (15.00-50.00)
[2020-04-01 20:08] LABS: Ferritin 10.1 ng/mL (22.0-322.0); Folate, Serum 15.2 ng/mL
[2020-04-02 05:39] LABS: HCT 24.4 % (39.0-53.0); HGB 7.6 gm/dL (13.0-17.5); Hypochromasia Moderate; MCH 27.5 pg (25.0-35.0); MCHC 31.2 g/dL (31.0-37.0); MCV 88.2 fL (80.0-100.0); Mean Platelet Volume 7.7; Platelet Count 300 k/uL (150-450); RBC 2.77 m/uL (4.30-5.90); RDW 15.5 % (11.5-15.5); WBC 8.4 k/uL (3.8-10.6)
[2020-04-02 05:42] LABS: African American GFR (CKD) >90 (>60 ml/min/1.73 sqM); Anion Gap 3 mmol/L; Blood Urea Nitrogen 23 mg/dL (9-20); Calcium 8.2 mg/dL (8.4-10.2); Carbon Dioxide 25 mmol/L (22-30); Chloride 107 mmol/L (98-107); Glucose 99 mg/dL (74-99); Non-African American GFR(CKD) >90 (>60 ml/min/1.73 sqM); Potassium 3.6 mmol/L (3.5-5.1); Sodium 135 mmol/L (137-145)
[2020-04-02] MEDS: SODIUM CHLORIDE 0.9% 1,000 ML IV SCH (06:43)
[2020-04-02] MEDS ORDERED: POTASSIUM CHLORIDE ER 20 MEQ TAB.ER PO SCH (07:00)
[2020-04-02] MEDS: PANTOPRAZOLE 40 MG/10 ML VIAL IVP SCH ×2 (09:15→21:23)
[2020-04-02] MEDS: SODIUM FERRIC GLUCONAT-SUCROSE 125 MG in SODIUM CHLORIDE 0.9% 100 ML IVPB SCH (11:47)
--- NOTE | 2020-04-02 12:27 | PN ---
PROGRESS NOTE DATE OF DICTATION: 04/02/2020 The patient is a 59-year-old pleasant white male admitted to the hospital with acute upper GI bleed. He underwent an upper endoscopy yesterday and was noted to have a 3-4 cm anastomotic ulcer at the gastrojejunal anastomosis with visible vessel and a small clot and Endoclip was placed. The patient is doing better. He did not have any further episodes of bleeding. He remains in the intensive care unit. He received one unit of PRBC transfusion. Today hemoglobin is 7.7 g/dL. He denies nausea, vomiting. No rectal bleeding or melena. Colostomy bag has some dark stool. PHYSICAL EXAMINATION: He appears comfortable. No apparent distress. VITAL SIGNS: Stable. Blood pressure is 98/55, pulse 89, temperature 97. HEENT examination unremarkable. Conjunctivae pink. Sclerae anicteric. Oral cavity no lesions. NECK: No JVD or lymph node enlargement. CHEST: Clear to auscultation. HEART: Regular rate and rhythm. ABDOMEN: Soft. Bowel sounds are positive. The colostomy bag has dark stool. EXTREMITIES: No pedal edema. SKIN: No rashes. NEURO: He is alert and oriented x3. No focal deficits. LABS: From today WBC 8.5, hemoglobin 7.6, platelets normal. Basic metabolic panel is within normal limits. BUN is 23, creatinine 0.9. IMPRESSION: 1. Acute upper gastrointestinal bleed, status post EGD yesterday with Endoclip placement that revealed a 3 cm anastomotic ulcer with a visible vessel. The patient dropped hemoglobin from 10-7.6 and is status post one unit of blood transfusion. Clinically no further episodes of active bleeding. 2. History of rectal cancer status post neoadjuvant chemotherapy followed by surgery and presently has a colostomy in 2019. RECOMMENDATIONS: 1. DC aspirin. 2. Continue Protonix 40 mg twice daily. 3. Advance diet as tolerated. 4. He can be transferred to the floor and we will monitor CBC on a daily basis. Thank you for this consultation. MMODL / IJN: [id number] /
--- NOTE | 2020-04-02 13:08 | P.PN ---
Subjective Progress Note Date: 04/02/20 Principal diagnosis: Acute upper GI bleeding This is a 59-year-old white male with history of colon cancer, previous metastasis to the liver, previous right sided colostomy, patient is now being followed by an oncologist in [place] and he was recently seen at the [facility] for his elevated carcinoembryonic antigen. Patient was considering reversal of his colostomy, but because of his elevated CEA, plans for surgery had been placed on hold. Patient has been taking recently ibuprofen for vague discomfort in the left knee joint, and over the last day has been noticing black stools in the ostomy bag. Patient was also complaining of generalized weakness and fatigue, he had no abdominal pain, no nausea, no vomiting, no fever, no chills, no shortness of breath. His hemoglobin back in September of 2019 was just above 14. However on this admission his hemoglobin was 10. Considering his symptoms, significant drop in his hemoglobin, and considering the findings of black stools in the colostomy bag, patient was admitted, and I was asked to see him on consultation. Patient had previous history of gastric ulcer, and has been treated in the past with PPI medications. And has been compliant. However patient has been taking ibuprofen recently denies any alcohol abuse, denies any smoking history. Patient was seen by gastroenterology, and he is supposed to have EGD today. Repeat hemoglobin since he has been in the is 8.7. Patient received 1 unit of packed RBCs since admission. Patient was reevaluated today on 04/02/20, patient underwent EGD yesterday, and he was found to have 3-4 cm superficial ulcer just distal to the GE anastomosis. With a visible vessel, underwent Endo Clip placement. Since yesterday, the patient has been noticing normal color of the stool in his colostomy bag. Patient is hemodynamically stable, did not require more than 1 unit of packed RBCs since admission. And he seems to be doing quite well today. Hemoglobin is 7.6 today. Basic metabolic profile is normal renal profile is normal. Patient is relatively asymptomatic, and he feels like he is back to his baseline. Objective - Vital Signs Vital signs: Vital Signs Temp 97.8 F 04/02/20 08:00 Pulse 90 04/02/20 12:00 Resp 29 H 04/02/20 12:00 BP 117/69 04/02/20 12:00 Pulse Ox 97 04/02/20 12:00 Intake & Output 04/01/20 04/02/20 04/02/20 18:59 06:59 18:59 Intake Total 860 1090 700 Output Total 2750 1300 1000 Balance -1890 -210 -300 Weight 82.1 kg Intake: IV 550 550 300 Sodium Chloride 0.9% 1, 450 550 300 000 ml @ 50 mls/hr IV . Q20H [facility] Rx#:[id number] Oral 540 400 Blood Product 310 Rc As-1 Unit 310 [id number] Output: Urine 1350 675 400 Stool 1400 625 600 Other: # Voids 0 1 - Exam Physical Exam: Revealed a 59-year-old white male in no distress. Head: Atraumatic normocephalic. HEENT:[Neck is supple.] [No neck masses.] [No thyromegaly.] [No JVD.] Chest: [Clear throughout, no crackles, no rhonchi, no wheezes.] Cardiac Exam: [Normal S1 and S2, no S3 gallop, no murmur.] Abdomen: [Soft, nontender, no megaly, no rebound, no guarding, normal bowel sounds.] Colostomy bag is intact, no black stools noted in the colostomy bag. Extremities: [No clubbing, no edema, no cyanosis.] Neurological Exam: [No focal neurologic deficit.] Alert and oriented 3. Psychiatric: Normal mood, affect and normal mental status examination. Lymphatics: No lymphadenopathy. - Labs CBC & Chem 7: 04/02/20 05:13 04/02/20 05:13 Labs: Abnormal Lab Results - Last 24 Hours (Table) 04/01/20 04/01/20 04/02/20 Range/Units 04:38 19:17 05:13 WBC 11.1 H (3.8-10.6) k/uL RBC 3.09 L (4.30-5.90) m/uL Hgb 8.8 L (13.0-17.5) gm/dL Hct 27.7 L (39.0-53.0) % RDW 15.7 H (11.5-15.5) % Sodium 135 L (137-145) mmol/L BUN 23 H (9-20) mg/dL Calcium 8.2 L (8.4-10.2) mg/dL Ferritin 10.1 L (22.0-322.0) ng/mL 04/02/20 Range/Units 05:13 WBC (3.8-10.6) k/uL RBC 2.77 L (4.30-5.90) m/uL Hgb 7.6 L (13.0-17.5) gm/dL Hct 24.4 L (39.0-53.0) % RDW (11.5-15.5) % Sodium (137-145) mmol/L BUN (9-20) mg/dL Calcium (8.4-10.2) mg/dL Ferritin (22.0-322.0) ng/mL Assessment and Plan Assessment: Impression: Acute blood loss anemia secondary to upper GI bleeding most likely secondary to gastric ulcer. Status post EGD and Endo Clip placement for active bleeding ulcer. Postoperative day #1. History of colon cancer with metastasis to the liver History of colostomy. Elevated carcinoembryonic antigen. Recommendation: Transfer patient out of the ICU to a regular medical floor. Continue Protonix 40 mg IV push twice a day. Consider discharge planning in the next 24 hours. Must avoid any nonsteroidal anti-inflammatory drugs. Patient was seen by oncology on consultation. However he is being followed at the [facility] for his elevated CEA. Will follow. Time with Patient: Less than 30
--- NOTE | 2020-04-02 13:40 | P.PN ---
Subjective Progress Note Date: 04/02/20 Principal diagnosis: GI bleed Patient was seen and examined. No acute events overnight. Underwent endoscopy yesterday showing superficial anastomotic ulcer with a visible vessel that was endoclipped. Patient reports no more melanotic stools. He denies any chest pain, shortness of breath or palpitations. No nausea or vomiting. No fever or chills. Objective - Vital Signs Vital signs: Vital Signs Temp 97.8 F 04/02/20 08:00 Pulse 90 04/02/20 12:00 Resp 29 H 04/02/20 12:00 BP 117/69 04/02/20 12:00 Pulse Ox 97 04/02/20 12:00 Intake & Output 04/01/20 04/02/20 04/02/20 18:59 06:59 18:59 Intake Total 860 1090 700 Output Total 2750 1300 1000 Balance -1890 -210 -300 Weight 82.1 kg Intake: IV 550 550 300 Sodium Chloride 0.9% 1, 450 550 300 000 ml @ 50 mls/hr IV . Q20H [facility] Rx#:[id number] Oral 540 400 Blood Product 310 Rc As-1 Unit 310 [id number] Output: Urine 1350 675 400 Stool 1400 625 600 Other: # Voids 0 1 - Exam General: [non toxic], [no distress], [appears at stated age] Derm: [warm], [dry] Head: [atraumatic], [normocephalic], [symmetric] Eyes: [EOMI], [no lid lag], [anicteric sclera] Mouth: [no lip lesion], [mucus membranes moist] Cardiovascular: [S1S2 reg], [+ murmur], [positive posterior tibial pulse bilateral], Lungs: [CTA bilateral], [no rhonchi, no rales] , [no accessory muscle use], ostomy bag with green stool Abdominal: [soft], [ nontender to palpation], [no guarding], [no appreciable organomegaly] Ext: [no gross muscle atrophy], [no edema], [no contractures] Neuro: [ CN II-XI grossly intact], [no focal neuro deficits] Psych: [Alert], [oriented], [appropriate affect] - Labs CBC & Chem 7: 04/02/20 05:13 04/02/20 05:13 Labs: Abnormal Lab Results - Last 24 Hours (Table) 04/01/20 04/01/20 04/02/20 Range/Units 04:38 19:17 05:13 WBC 11.1 H (3.8-10.6) k/uL RBC 3.09 L (4.30-5.90) m/uL Hgb 8.8 L (13.0-17.5) gm/dL Hct 27.7 L (39.0-53.0) % RDW 15.7 H (11.5-15.5) % Sodium 135 L (137-145) mmol/L BUN 23 H (9-20) mg/dL Calcium 8.2 L (8.4-10.2) mg/dL Ferritin 10.1 L (22.0-322.0) ng/mL 04/02/20 Range/Units 05:13 WBC (3.8-10.6) k/uL RBC 2.77 L (4.30-5.90) m/uL Hgb 7.6 L (13.0-17.5) gm/dL Hct 24.4 L (39.0-53.0) % RDW (11.5-15.5) % Sodium (137-145) mmol/L BUN (9-20) mg/dL Calcium (8.4-10.2) mg/dL Ferritin (22.0-322.0) ng/mL Assessment and Plan Assessment: Acute blood loss anemia secondary to GI bleeding with history of gastric ulcers -Status post endoscopy and Endo Clip -Hemoglobin downtrending to 7.6 -Repeat CBC tomorrow morning -GI following, discussed with Dr. Donovan, transition diet to regular and monitor hemoglobin -Protonix 40 mg IV every 12 hourly -Iron studies show a decreased ferritin, starte on IV iron by hematology Prerenal azotemia -Likely related to GI bleed -Plans to repeat BMP tomorrow morning History of colon cancer with metastases to liver, currently in remission -Patient notes he is following with oncologist in [place] -Reports that he had a recent increase in his CEA levels, and is undergoing workup for possible recurrence though not yet confirmed DVT prophylaxis -IPCDs [Patient no longer having melanotic stools. Plans to transition diet today. Repeat CBC tomorrow morning. GI following. Plans for DC if patient continues t o improve and hemoglobin remains stable tomorrow.]
[2020-04-02 20:01] LABS: Basophils # (A) 0.1 k/uL (0-0.2); Basophils % (A) 1 %; Eosinophils # (A) 0.3 k/uL (0-0.7); Eosinophils % (A) 3 %; HCT 25.7 % (39.0-53.0); HGB 7.8 gm/dL (13.0-17.5); Hypochromasia Moderate; Lymphocytes # (A) 1.5 k/uL (1.0-4.8); Lymphocytes % (A) 15 %; MCH 27.3 pg (25.0-35.0); MCHC 30.6 g/dL (31.0-37.0); MCV 89.5 fL (80.0-100.0); Mean Platelet Volume 8.6; Monocytes # (A) 1.2 k/uL (0-1.0); Monocytes % (A) 12 %; Neutrophils # (A) 6.6 k/uL (1.3-7.7); Neutrophils % (A) 67 %; Platelet Count 328 k/uL (150-450); RBC 2.87 m/uL (4.30-5.90); RDW 15.7 % (11.5-15.5); WBC 9.8 k/uL (3.8-10.6)
[2020-04-02] MEDS: HYDROcodone/APAP 5-325MG 1 EACH TAB PO PRN (23:39)
--- NOTE | 2020-04-02 23:51 | P.PN ---
Subjective Progress Note Date: 04/02/20 This is a very nice patient who was found to have rectal polyp during routine screening colonoscopy done on 06/08/2013 which was resected,the pathology revealed moderately differentiated adenocarcinoma arising in an adenoma and extending to inked. He had a sigmoidoscopy on 07/07/2013 and multiple biopsies were taken from the site of the previous polyp which all came back with reactive changes,no judith vega. The patient was seen by Dr. White in 07/24. As he had a T1 tumor that appeared to be completely resected transanally, Dr. White agreed that the plan for surveillance was appropriate. The patient however did not follow-up with surveillance colonoscopies as recommended. He was referred to Dr. alba in 03/28 by his PCP and had a repeat colonoscopy on 04/03/18 , that found a suspicious lesion at 8 cm (the same side as the previous). Biopsies revealed high-grade dysplasia but not overt ma lignancy. the patient was referred for an endoscopic ultrasound that was performed on 04/15/18. This showed the mass to be predominantly T2, with a section of it showing T3 invasion. None of the adjacent nodes appear to be involved. The patient's case was discussed in the [facility]. As treatment for T3 and higher involves chemotherapy, which could not be administered without a definite diagnosis of malignancy, repeat biopsy was recommended. This was done via sigmoidoscopy on 05/01/18 confirming a moderately differentiated adenocarcinoma. As discussed during the M[facility], he had staging studies with CT scan of the chest abdomen and pelvis on 04/28/18. This showed a hypodense subcentimeter lesion with ill-defined borders in the upper left lobe of the liver, with metastatic disease not excluded. The patient was referred here for further evaluation and seen for this new d iagnosis on 05/08/18. His CEA level was mildly elevated at 19.8. His MRI of the liver was indeterm inate re the lesion, with no other lesions seen. PET scan was negative He was referred for a liver biopsy, which was done at [facility] on 06/19/18. THis was positive for adenoca c/w colon primary. He had a PORT placed on 06/27/18. He was started on FOLFOX and is s/p 6 cycles. Vectibix was added with C 3. KRAS was wild type.Treatment was held in 09/28. He proceeded to liver and rectal resection in 10/28 at [facility]. He treated surgery well. He decided on reversal 1st and had that in 01/27. Unfortunately he developed an anastomotic leak and sepsis per him. He was treated in [place], [place], where he was staying with family. He has had multiple surgeries, including ostomy replacement. His most recent surgery was in 03/29, per him. He came back to the office to establish f/u in late 05/29 He had restaging labs and CT scans, with CEA 2.5. Scans showed a 4.4 cm lesion in the left dome area, with surrounding surgical clips. This appeared to be more likely post surgical defect PET scan in 07/30 showed uptake only in the RLQ/rt pararenal space which appeared to be inflammatory. He was referred to the [facility] to get an opinion re any benefit of chemo at that point, with such a delay post surgery. He , however , did not go as he lost his insurance he was admitted to [facility] for a GIB in 09/29 due to a gastric ulcer, treated endoscopically. hemoglobin had dropped as a result when seen in 11/30. CEA had shown a mild increased into the 9 range which is nonspecific. He had repeat CT scans done on 12/03/19 which showed stable findings.He was referred again to the [facility] , as he now had insurance, but states that he has not heard from them. He was last seen by Dr. Andrade in office in December of this year. At that time he appeared clinically stable his hemoglobin has recovered to 12.9. He was being assessed at [facility] for ostomy reversal. He had not had this performed. Surgeon over they recommended a PET scan, due to the increase in CEA (now 13). As stated, CT scans did not show any evidence of recurrence. PET scan has been performed but the result is not yet available. - And long discussion with the patient and his sister regarding the current situation and further plans. The [facility] were contacted again, as stated that they will call the patient today. Recommendation at that time was to proceed with the surgery and continue observation. [facility] in his ostomy bag. He was asymptomatic with the exception of light headed and dizzy with quick standing. On admission his hemoglobin 10.0, WBC count 9.6, platelets 45, sodium 136, potassium 4.6, BUN 29, creatinine 0.94, stool occult positive. While in the ED, the patient again past large amounts of blood into his ostomy bag per medical record. He is status post EGD today with Dr. Lima. Objective - Vital Signs Vital signs: Vital Signs Temp 97.8 F 04/02/20 08:00 Pulse 88 04/02/20 11:56 Resp 13 04/02/20 11:56 BP 121/69 04/02/20 11:00 Pulse Ox 99 04/02/20 11:00 Intake & Output 04/01/20 04/02/20 04/02/20 18:59 06:59 18:59 Intake Total 860 1090 700 Output Total 2750 1300 1000 Balance -1890 -210 -300 Weight 82.1 kg Intake: IV 550 550 300 Sodium Chloride 0.9% 1, 450 550 300 000 ml @ 50 mls/hr IV . Q20H [facility] Rx#:[id number] Oral 540 400 Blood Product 310 Rc As-1 Unit 310 [id number] Output: Urine 1350 675 400 Stool 1400 625 600 Other: # Voids 0 1 - Exam The patient appeared well nourished and normally developed. Vital signs as documented. Head exam is unremarkable. No scleral icterus or corneal arcus noted. Neck is without jugular venous distension, thyromegaly, or carotid bruits. Carotid upstrokes are brisk bilaterally. Lungs are clear to auscultation and percussion. Cardiac exam reveals the PMI to be normally sized and situated. Rhythm is regular. First and second heart sounds normal. No murmurs, rubs or gallops. Abdominal exam reveals normal bowel sounds, no masses, no organomegaly and no aortic enlargement. Extremities are nonedematous and both femoral and pedal pulses are normal. - Labs CBC & Chem 7: 04/02/20 19:40 04/02/20 05:13 Labs: Abnormal Lab Results - Last 24 Hours (Table) 04/01/20 04/01/20 04/02/20 Range/Units 04:38 19:17 05:13 WBC 11.1 H (3.8-10.6) k/uL RBC 3.09 L (4.30-5.90) m/uL Hgb 8.8 L (13.0-17.5) gm/dL Hct 27.7 L (39.0-53.0) % RDW 15.7 H (11.5-15.5) % Sodium 135 L (137-145) mmol/L BUN 23 H (9-20) mg/dL Calcium 8.2 L (8.4-10.2) mg/dL Ferritin 10.1 L (22.0-322.0) ng/mL // Range/Units 05:13 WBC (3.8-10.6) k/uL RBC 2.77 L (4.30-5.90) m/uL Hgb 7.6 L (13.0-17.5) gm/dL Hct 24.4 L (39.0-53.0) % RDW (11.5-15.5) % Sodium (137-145) mmol/L BUN (9-20) mg/dL Calcium (8.4-10.2) mg/dL Ferritin (22.0-322.0) ng/mL Assessment and Plan Plan: Assessment and Recommendations: Normocytic Anemia: Secondary to GI blood loss - Iron, B12, LDH, Retic ordered - Transfuse less than 7 - Status Post EGD with Biopsy per GI - The patient had recurrent GI bleeding with EGD showing also with exposed was just distal to the gastrojejunal anastomosis. The patient had clipping of the vessel. - Order iron infusion - today's hemoglobin is 7.6 Hx: Metastatic Colorectal Cancer: - Recent PET SOTERO, PET scan in 12/30 did not show any evidence of metastatic disease, recent colonoscopy was negative. - On Surveillance - There has been concern for recurrent disease because of elevated CEA. However imaging as noted above (computed tomography scan and PET scan), colonoscopy, as well as repeat CAT scans according to the patient, at the [facility] have not shown any obvious recurrence. - Restaging Scans , follow-up at the [facility] with Dr. Sen. Thank you for allowing us to participate in the care of your patient. Please feel free to call us with any questions[place] [id number], [address] [place] [address] Office: [phone],
[2020-04-03] MEDS ORDERED: MORPHINE SULFATE 4 MG/ML SYRINGE IVP STA (01:29)
[2020-04-03] MEDS: SODIUM CHLORIDE 0.9% 1,000 ML IV SCH ×2 (04:22→12:47)
[2020-04-03 07:16] LABS: African American GFR (CKD) >90 (>60 ml/min/1.73 sqM); Anion Gap 4 mmol/L; Blood Urea Nitrogen 15 mg/dL (9-20); Carbon Dioxide 25 mmol/L (22-30); Chloride 108 mmol/L (98-107); Glucose 96 mg/dL (74-99); Non-African American GFR(CKD) >90 (>60 ml/min/1.73 sqM); Potassium 3.8 mmol/L (3.5-5.1); Sodium 137 mmol/L (137-145)
[2020-04-03] MEDS: PANTOPRAZOLE 40 MG/10 ML VIAL IVP SCH ×2 (09:19→21:06)
--- NOTE | 2020-04-03 10:45 | P.DS ---
Providers Date of admission: 04/01/20 02:27 Expected date of discharge: 04/03/20 Attending physician: Omid Flores MD Consults: 04/01/20 02:35 Consult Physician Stat Consulting Provider: Kailyn Lima Consult Reason/Comments: GI bleed Do you want consulting provider notified?: Yes 04/01/20 03:05 Consult Physician Routine Consulting Provider: Tahir Orozco Consult Reason/Comments: GI bleed, ICU management Do you want consulting provider notified?: Yes 04/01/20 03:06 Consult Physician Urgent Consulting Provider: Francis Andrade Consult Reason/Comments: colorectal cancer, GI bleed Do you want consulting provider notified?: Yes, Notify in am Primary care physician: [facility] Course: The patient is a 59-year-old male with a PMH of colon cancer with metastases to the liver, currently in remission, status post right colostomy following with oncologist in [place] presented to the ED with complaints of blood in his ostomy bag. The patient notes that he has been in his usual state of health and had his dinner earlier tonight, an hour after which he noticed maroon-colored blood in his ostomy bag. He became alarmed and subsequently came to the ED. He reports feeling lightheaded when walking though otherwise denied any active complaints. He denied abdominal pain, nausea, vomiting, fever, chills, chest pain, shortness of breath, or headaches. Of note, the patient was previously admitted to the hospital in September 2019 with GI bleeding at which time an EGD had revealed ulcers as a possible source. He underwent an extensive evaluation in the emergency room with hemoglobin 10.0, WBC count 9.6, platelets 45, sodium 136, potassium 4.6, BUN 29, creatinine 0.94, glucose 122, troponin less than 0.012, and stool occult positive. While in the ED, the patient again past large amounts of blood into his ostomy bag. His hemoglobin was trending down from 10 on admission to 8.7. He was transfused 1 unit PRBC and repeat hemoglobin was 7.6. Patient underwent endoscopy which showed 3-4 cm superficial anastomotic ulcer just distal to the gastrojejunal anastomosis with a visible vessel status post Endo Clip. Patient had no more melanotic or bloody stools and has ostomy bag after his procedure. He was transitioned from clear liquid diet to regular diet. Patient was able to tolerate his diet well. Patient was seen and examined. No acute events overnight. Patient reports no complaints. Ostomy bag with greenish stool. No more melanotic stools or blood in the ostomy bag. He denies any chest pain, shortness breath or palpitations. No nausea or vomiting. No fever or chills. He does complain of some rectal discomfort since undergoing a colonoscopy and rectal biopsy in December. General: [non toxic], [no distress], [appears at stated age] Derm: [warm], [dry] Head: [atraumatic], [normocephalic], [symmetric] Eyes: [EOMI], [no lid lag], [anicteric sclera] Mouth: [no lip lesion], [mucus membranes moist] Cardiovascular: [S1S2 reg], [+ murmur], [positive posterior tibial pulse bilateral], Lungs: [CTA bilateral], [no rhonchi, no rales] , [no accessory muscle use], ostomy bag with green stool Abdominal: [soft], [ nontender to palpation], [no guarding], [no appreciable organomegaly] Ext: [no gross muscle atrophy], [no edema], [no contractures] Neuro: [no focal neuro deficits] Psych: [Alert], [oriented], [appropriate affect] Acute blood loss anemia secondary to GI bleeding with history of gastric ulcers -Status post endoscopy and Endo Clip along with 1 unit PRBC -Hemoglobin maintaining at 7.8 -Repeat CBC tomorrow morning -GI consulted, appreciate recommendations -Continue Protonix IV twice a day while inpatient, transitioned to Protonix by mouth twice a day on discharge -Iron studies show a decreased ferritin, started on IV iron by hematology History of colon cancer with metastases to liver, currently in remission -Patient notes he is following with oncologist in [place] -Reports that he had a recent increase in his CEA levels, and is undergoing workup for possible recurrence though not yet confirmed DVT prophylaxis -IPCDs Patient's ASCVD risk given his most recent lipid profile is 6.4%. Given his risk for GI bleed, I do not think that it is appropriate for him to continue with aspirin treatment. Will discontinue aspirin on discharge to be followed up by his PCP. [Patient no longer having melanotic stools. Tolerating diet well. Hemoglobin stable. Plans for DC home today if cleared by GI. Needs continued workup by his outpatient oncologist for history of colon cancer.] Procedures: Endoscopy Patient Condition at Discharge: Stable Plan - Discharge Summary Discharge Rx Participant: Yes New Discharge Prescriptions: New Hydrocortisone Suppository [Anusol-Hc] 25 mg RECTAL DAILY PRN #5 supp PRN Reason: rectal pain HYDROcodone/APAP 5-325MG [[place] 5-325] 1 each PO Q4HR PRN #18 tab PRN Reason: Moderate Pain Continue Multivitamins, Thera [Multivitamin (formulary)] 1 tab PO DAILY Changed Pantoprazole Sodium [Protonix] 40 mg PO BID-W/MEALS #45 tab Discontinued Aspirin [Adult Low Dose Aspirin EC] 81 mg PO DAILY Discharge Medication List Multivitamins, Thera [Multivitamin (formulary)] 1 tab PO DAILY 10/03/19 [History] HYDROcodone/APAP 5-325MG [[place] 5-325] 1 each PO Q4HR PRN #18 tab 04/03/20 [Rx] Hydrocortisone Suppository [Anusol-Hc] 25 mg RECTAL DAILY PRN #5 supp 04/03/20 [Rx] Pantoprazole Sodium [Protonix] 40 mg PO BID-W/MEALS #45 tab 04/03/20 [Rx] Follow up Appointment(s)/Referral(s): Fox Alvarado MD [Primary Care Provider] - 1-2 days Kailyn Lima MD [STAFF PHYSICIAN] - 1 Week Activity/Diet/Wound Care/Special Instructions: Diet: Regular Follow-up PCP within 2 days of discharge. Follow-up with GI within 1 week of discharge. Take all medications as advised. Come back to the ED for black stools, blood in the ostomy bag, chest pain, shortness of breath, palpitations or dizziness. Follow-up with the oncologist for further workup of your colon cancer. Discharge Disposition: HOME SELF-CARE
[2020-04-03 11:49] LABS: Basophils # (A) 0.1 k/uL (0-0.2); Basophils % (A) 1 %; Eosinophils # (A) 0.2 k/uL (0-0.7); Eosinophils % (A) 3 %; HCT 22.6 % (39.0-53.0); Hypochromasia Marked; Lymphocytes % (A) 29 %; MCV 90.3 fL (80.0-100.0); Monocytes # (A) 0.9 k/uL (0-1.0); Monocytes % (A) 13 %; Neutrophils # (A) 3.7 k/uL (1.3-7.7); Neutrophils % (A) 52 %; Platelet Count 326 k/uL (150-450)
[2020-04-03] MEDS: SODIUM FERRIC GLUCONAT-SUCROSE 125 MG in SODIUM CHLORIDE 0.9% 100 ML IVPB SCH (12:45)
--- NOTE | 2020-04-03 23:04 | PN ---
PROGRESS NOTE DATE OF SERVICE: 04/03/2020 Patient is a 59-year-old pleasant white male admitted to the hospital with acute upper GI bleed. He underwent an upper endoscopy 2 days ago that showed a gastric anastomotic ulcer with bleeding, status post Endoclip placement. He is doing well. Colostomy bag has brown-colored stool. No further bleeding. He dropped his hemoglobin to 7 g/dL today and he is going to receive another unit of blood transfusion. He denies any abdominal pain. No nausea, vomiting. PHYSICAL EXAMINATION: Appears comfortable, no apparent distress. VITAL SIGNS: Stable. Blood pressure is 104/57, pulse is 76, temperature 98.4. HEENT examination unremarkable. Conjunctivae pink, sclerae anicteric. Oral cavity no lesions. NECK: No JVD or lymph node enlargement. CHEST: Clear to auscultation. HEART: Regular rate and rhythm. ABDOMEN: Soft. Bowel sounds are positive. Colostomy bag had brown stool. EXTREMITIES: No pedal edema. SKIN: No rashes. NEUROLOGIC: Alert and oriented x3. No focal deficits. LABS: WBC 7, hemoglobin 7, platelets 326. The rest of the labs are within normal limits. BUN 15, creatinine 0.9. IMPRESSION: 1. Acute upper gastrointestinal bleed, status post EGD 2 days ago that showed a 3-4 cm gastric anastomotic ulcer with a visible vessel status post Endoclip placement. The patient clinically has no active bleeding. He did drop his hemoglobin to 7 g/dL today. 2. History of rectal cancer status post radiation and chemotherapy followed by colostomy. RECOMMENDATION: 1. Continue with Protonix 40 mg twice daily. 2. Transfuse 1 unit of blood. 3. Repeat CBC in the morning. 4. If it is stable, he can be discharged home tomorrow with outpatient followup in 2-3 weeks. Thank you for this consultation. MMODL / IJN: [id number] /
[2020-04-03 23:09] VITALS: RESP 16
[2020-04-04] MEDS: HYDROcodone/APAP 5-325MG 1 EACH TAB PO PRN (00:05)
[2020-04-04 06:06] VITALS: BP 113/64; PULSE 72; TEMP 98.2
[2020-04-04] MEDS: PANTOPRAZOLE 40 MG/10 ML VIAL IVP SCH (08:16)
[2020-04-04 08:35] LABS: Anisocytosis Slight; Basophils # (A) 0.1 k/uL (0-0.2); Basophils % (A) 1 %; Eosinophils # (A) 0.4 k/uL (0-0.7); Eosinophils % (A) 6 %; HCT 28.8 % (39.0-53.0); Hypochromasia Moderate; Lymphocytes # (A) 1.7 k/uL (1.0-4.8); Lymphocytes % (A) 29 %; MCH 27.5 pg (25.0-35.0); MCHC 30.6 g/dL (31.0-37.0); MCV 89.9 fL (80.0-100.0); Mean Platelet Volume 7.7; Monocytes # (A) 0.6 k/uL (0-1.0); Monocytes % (A) 9 %; Neutrophils # (A) 3.1 k/uL (1.3-7.7); Neutrophils % (A) 52 %; Platelet Count 376 k/uL (150-450); WBC 5.9 k/uL (3.8-10.6)
[2020-04-04 08:43] LABS: HGB 8.8 gm/dL (13.0-17.5)
[2020-04-04] MEDS: SODIUM FERRIC GLUCONAT-SUCROSE 125 MG in SODIUM CHLORIDE 0.9% 100 ML IVPB SCH (11:12)
--- NOTE | 2020-04-04 12:09 | PN ---
PROGRESS NOTE DATE OF DICTATION: April 04, 2020 Patient is a 59-year-old white male admitted to hospital with acute upper GI bleed. He underwent an upper endoscopy 3 days ago and was noted to have a large 3-4 cm gastric anastomotic ulcer with a visible vessel, status post Endoclip placement. He has no further episodes of bleeding. Colostomy bag has brown stool. He dropped his hemoglobin to 7 yesterday and received one unit of blood transfusion and today hemoglobin is 8.3 g/dL. He denies any abdominal pain. No nausea, vomiting. PHYSICAL EXAMINATION: He appears comfortable. Blood pressure 113/64, pulse, temperature 98.2. HEENT examination unremarkable. Conjunctivae pink. Sclerae anicteric. Oral cavity no lesions. NECK: No JVD or lymph node enlargement. CHEST: Clear to auscultation. HEART: Regular rate and rhythm. ABDOMEN: Soft. Bowel sounds are positive. Colostomy bag has brown stool. EXTREMITIES: No pedal edema. SKIN: No rashes. NEUROLOGIC: Alert and oriented x3. No focal deficits. LABS: From today WBC of 5.9, hemoglobin 8.8, platelets normal. IMPRESSION: Acute upper gastrointestinal bleed status post EGD 3 days ago which revealed a 4 cm gastric anastomotic ulcer with visible vessel status post Endoclip placement. No further bleeding. He dropped his hemoglobin to 7 yesterday, needing another unit of PRBC transfusion. Today hemoglobin is 8.8 and stable, no further bleeding. Remains on Protonix 40 mg twice daily. RECOMMENDATIONS: 1. Continue Protonix 40 mg twice daily. 2. Patient to be discharged home today. 3. Follow up in the office in 2 weeks. Thank you for this consultation. MMODL / IJN: [id number] /
--- NOTE | 2020-04-04 15:40 | P.PN ---
Subjective Progress Note Date: 04/04/20 Principal diagnosis: GI bleed Patient was seen and examined. No acute events overnight. Underwent endoscopy showing superficial anastomotic ulcer with a visible vessel that was endoclipped. Patient reports no more melanotic stools. He denies any chest pain, shortness of breath or palpitations. No nausea or vomiting. No fever or chills. Given 1 unit PRBC yesterday, hemoglobin improving from 7-8.8. Objective - Vital Signs Vital signs: Vital Signs Temp 98.2 F 04/04/20 05:26 Pulse 72 04/04/20 05:26 Resp 16 04/04/20 05:26 BP 113/64 04/04/20 05:26 Pulse Ox 97 04/04/20 05:26 Intake & Output 04/03/20 04/04/20 04/04/20 18:59 06:59 18:59 Intake Total 310 Output Total 800 1910 Balance -490 -1910 Intake: Blood Product 310 Rc As-1 Unit 310 [id number] Output: Stool 800 1910 Other: Voiding Method Toilet Toilet Toilet # Voids 3 4 - Exam General: [non toxic], [no distress], [appears at stated age] Derm: [warm], [dry] Head: [atraumatic], [normocephalic], [symmetric] Eyes: [EOMI], [no lid lag], [anicteric sclera] Mouth: [no lip lesion], [mucus membranes moist] Cardiovascular: [S1S2 reg], [+ murmur], [positive posterior tibial pulse bilateral], Lungs: [CTA bilateral], [no rhonchi, no rales] , [no accessory muscle use], ostomy bag with green stool Abdominal: [soft], [ nontender to palpation], [no guarding], [no appreciable organomegaly] Ext: [no gross muscle atrophy], [no edema], [no contractures] Neuro: [ CN II-XI grossly intact], [no focal neuro deficits] Psych: [Alert], [oriented], [appropriate affect] - Labs CBC & Chem 7: 04/04/20 08:11 04/03/20 06:42 Labs: Abnormal Lab Results - Last 24 Hours (Table) 05/22/20 05/25/20 Range/Units 01:58 08:11 RBC 3.20 L (4.30-5.90) m/uL Hgb 8.8 L D (13.0-17.5) gm/dL Hct 28.8 L (39.0-53.0) % MCHC 30.6 L (31.0-37.0) g/dL RDW 17.0 H (11.5-15.5) % Crossmatch See Detail Assessment and Plan Assessment: Acute blood loss anemia secondary to GI bleeding with history of gastric ulcers -Status post endoscopy and Endo Clip -Hemoglobin maintaining at 8.8 from 7.0 s/p 1 PRBC -GI consulted, appreciate recommendations -Continue Protonix IV twice a day while inpatient, transitioned to Protonix by mouth twice a day on discharge -Iron studies show a decreased ferritin, received 3 days of IV iron History of colon cancer with metastases to liver, currently in remission -Patient notes he is following with oncologist in [place] -Reports that he had a recent increase in his CEA levels, and is undergoing workup for possible recurrence though not yet confirmed DVT prophylaxis -IPCDs Patient's ASCVD risk given his most recent lipid profile is 6.4%. Given his risk for GI bleed, I do not think that it is appropriate for him to continue with aspirin treatment. Will discontinue aspirin on discharge to be followed up by his PCP. [Patient no longer having melanotic stools. Tolerating diet well. Hemoglobin stable. Plans for DC home today. Needs continued workup by his outpatient oncologist for history of colon cancer.]
--- NOTE | 2020-04-04 17:54 | P.PN ---
Subjective Progress Note Date: 04/04/20 This is a very nice patient who was found to have rectal polyp during routine screening colonoscopy done on 06/08/2013 which was resected,the pathology revealed moderately differentiated adenocarcinoma arising in an adenoma and extending to inked. He had a sigmoidoscopy on 07/07/2013 and multiple biopsies were taken from the site of the previous polyp which all came back with reactive changes,no judith vega. The patient was seen by Dr. White in 07/24. As he had a T1 tumor that appeared to be completely resected transanally, Dr. White agreed that the plan for surveillance was appropriate. The patient however did not follow-up with surveillance colonoscopies as recommended. He was referred to Dr. alba in 03/28 by his PCP and had a repeat colonoscopy on 04/03/18 , that found a suspicious lesion at 8 cm (the same side as the previous). Biopsies revealed high-grade dysplasia but not overt ma lignancy. the patient was referred for an endoscopic ultrasound that was performed on 04/15/18. This showed the mass to be predominantly T2, with a section of it showing T3 invasion. None of the adjacent nodes appear to be involved. The patient's case was discussed in the [facility]. As treatment for T3 and higher involves chemotherapy, which could not be administered without a definite diagnosis of malignancy, repeat biopsy was recommended. This was done via sigmoidoscopy on 05/01/18 confirming a moderately differentiated adenocarcinoma. As discussed during the MDC, he had staging studies with CT scan of the chest abdomen and pelvis on 04/28/18. This showed a hypodense subcentimeter lesion with ill-defined borders in the upper left lobe of the liver, with metastatic disease not excluded. The patient was referred here for further evaluation and seen for this new d iagnosis on 05/08/18. His CEA level was mildly elevated at 19.8. His MRI of the liver was indeterm inate re the lesion, with no other lesions seen. PET scan was negative He was referred for a liver biopsy, which was done at [facility] on 06/19/18. THis was positive for adenoca c/w colon primary. He had a PORT placed on 06/27/18. He was started on FOLFOX and is s/p 6 cycles. Vectibix was added with C 3. KRAS was wild type.Treatment was held in 09/28. He proceeded to liver and rectal resection in 10/28 at [facility]. He treated surgery well. He decided on reversal 1st and had that in 01/27. Unfortunately he developed an anastomotic leak and sepsis per him. He was treated in [place], [place], where he was staying with family. He has had multiple surgeries, including ostomy replacement. His most recent surgery was in 03/29, per him. He came back to the office to establish f/u in late 05/29 He had restaging labs and CT scans, with CEA 2.5. Scans showed a 4.4 cm lesion in the left dome area, with surrounding surgical clips. This appeared to be more likely post surgical defect PET scan in 07/30 showed uptake only in the RLQ/rt pararenal space which appeared to be inflammatory. He was referred to the [facility] to get an opinion re any benefit of chemo at that point, with such a delay post surgery. He , however , did not go as he lost his insurance he was admitted to [facility] for a GIB in 09/29 due to a gastric ulcer, treated endoscopically. hemoglobin had dropped as a result when seen in 11/30. CEA had shown a mild increased into the 9 range which is nonspecific. He had repeat CT scans done on 12/03/19 which showed stable findings.He was referred again to the [facility] , as he now had insurance, but states that he has not heard from them. He was last seen by Dr. Andrade in office in December of this year. At that time he appeared clinically stable his hemoglobin has recovered to 12.9. He was being assessed at [facility] for ostomy reversal. He had not had this performed. Surgeon over they recommended a PET scan, due to the increase in CEA (now 13). As stated, CT scans did not show any evidence of recurrence. PET scan has been performed but the result is not yet available. - And long discussion with the patient and his sister regarding the current situation and further plans. The [facility] were contacted again, as stated that they will call the patient today. Recommendation at that time was to proceed with the surgery and continue observation. He now presents to [facility] for blood in his ostomy bag. He was asymptomatic with the exception of light headed and dizzy with quick standing. On admission his hemoglobin 10.0, WBC count 9.6, platelets 45, sodium 136, potassium 4.6, BUN 29, creatinine 0.94, stool occult positive. While in the ED, the patient again past large amounts of blood into his ostomy bag per medical record. He is status post EGD today with Dr. Lima. Objective - Vital Signs Vital signs: Vital Signs Temp 98.2 F 04/04/20 05:26 Pulse 72 04/04/20 05:26 Resp 16 04/04/20 05:26 BP 113/64 04/04/20 05:26 Pulse Ox 97 04/04/20 05:26 Intake & Output 04/03/20 04/04/20 04/04/20 18:59 06:59 18:59 Intake Total 310 Output Total 800 1910 Balance -490 -1909 Intake: Blood Product 310 Rc As-1 Unit 310 [id number] Output: Stool 800 1910 Other: Voiding Method Toilet Toilet Toilet # Voids 3 4 - Exam The patient appeared well nourished and normally developed. Vital signs as documented. Head exam is unremarkable. No scleral icterus or corneal arcus noted. Neck is without jugular venous distension, thyromegaly, or carotid bruits. Carotid upstrokes are brisk bilaterally. Lungs are clear to auscultation and percussion. Cardiac exam reveals the PMI to be normally sized and situated. Rhythm is regular. First and second heart sounds normal. No murmurs, rubs or gal lops. Abdominal exam reveals normal bowel sounds, no masses, no organomegaly and no aortic enlargement. Extremities are nonedematous and both femoral and pedal pulses are normal. - Labs CBC & Chem 7: 04/04/20 08:11 04/03/20 06:42 Labs: Abnormal Lab Results - Last 24 Hours (Table) 04/04/20 Range/Units 08:11 RBC 3.20 L (4.30-5.90) m/uL Hgb 8.8 L D (13.0-17.5) gm/dL Hct 28.8 L (39.0-53.0) % MCHC 30.6 L (31.0-37.0) g/dL RDW 17.0 H (11.5-15.5) % Assessment and Plan Plan: Assessment and Recommendations: Normocytic Anemia: Secondary to GI blood loss - Iron, B12, LDH, Retic ordered - Transfuse less than 7 - Status Post EGD with Biopsy per GI - The patient had recurrent GI bleeding with EGD showing also with exposed was just distal to the gastrojejunal anastomosis. The patient had clipping of the vessel. - Order iron infusion - today's hemoglobin is 7.6 Hx: Metastatic Colorectal Cancer: MRI showing recurrence - Recent PET SOETRO, PET scan in 12/30 did not show any evidence of metastatic disease, recent colonoscopy was negative. - On Surveillance - There has been concern for recurrent disease because of elevated CEA. However imaging as noted above (computed tomography scan and PET scan), colonoscopy, as well as repeat CAT scans according to the patient, at the [facility] have not shown any obvious recurrence. - Restaging Scans , follow-up at the [facility] with Dr. Sen. - MRI of the abdomen done at [facility] revealed, unfortunately shows masses in the pelvic region on the left side pressing on the bone in my opinion this needs to be biopsied. discussed this in detail with Mr. patient has a follow-up at [facility]. Thank you for allowing us to participate in the care of your patient. Please feel free to call us with any [place] [id number], [address] [place] [address] Office: [phone], Time with Patient: Greater than 30
== END 2020-04-04 14:27 | disposition home or self-care (01) | DRG 378 ==
LOC: EC 00:47 → 2SICU 02:27 → 5NMEDONC 04-02 19:21
PROVIDERS: ADMIT Internal Medicine; ATTEND Internal Medicine
PROC: 30243N1 Transfusion of Nonautologous Red Blood Cells into Central Vein, Percutaneous Approach (ICD-10-PCS; 2020-04-01)
PROC: 0DB68ZX Excision of Stomach, Via Natural or Artificial Opening Endoscopic, Diagnostic (ICD-10-PCS; principal; 2020-04-01 07:50)
PROC: 0W3P8ZZ Control Bleeding in Gastrointestinal Tract, Via Natural or Artificial Opening Endoscopic (ICD-10-PCS; principal; 2020-04-01 07:50)
DX: K28.4 Chronic or unspecified gastrojejunal ulcer with hemorrhage (principal); D62 Acute posthemorrhagic anemia; I95.9 Hypotension, unspecified; K44.9 Diaphragmatic hernia without obstruction or gangrene; R97.0 Elevated carcinoembryonic antigen [CEA]; Z11.59 Encounter for screening for other viral diseases; Z93.3 Colostomy status; Z79.82 Long term (current) use of aspirin; Z79.899 Other long term (current) drug therapy; Z85.048 Personal history of other malignant neoplasm of rectum, rectosigmoid junction, and anus; Z85.05 Personal history of malignant neoplasm of liver; Z87.11 Personal history of peptic ulcer disease; Z92.21 Personal history of antineoplastic chemotherapy; Z92.3 Personal history of irradiation; Z88.2 Allergy status to sulfonamides; Z90.49 Acquired absence of other specified parts of digestive tract; Z80.9 Family history of malignant neoplasm, unspecified
CPT/HCPCS: 36415; 43255; 80048; 80053; 82272; 82607; 82728; 82746; 83540; 83550; 83605; 83615; 84484; 85025; 85027; 85045; 85610; 85730; 86850; 86900; 86901; 86920; 87635; 88305; 96374; 99284

== ENCOUNTER 2020-08-19 09:42 | Day surgery (SDC) | payer OTHER ==
[2020-08-17 10:34] VITALS: BMI 25.8
[~2020-08-19 09:42] MED LIST: LACTATED RINGERS 1,000 ML IV SCH; LIDOCAINE 1% (10MG/ML) FOR IV START INTRADERMA PRN
[2020-08-19 10:15] VITALS: TEMP 97.7
[2020-08-19] MEDS ORDERED: LIDOCAINE 1% INJ 10MG/ML (20 ML MDV) ONE (11:02)
[2020-08-19] MEDS ORDERED: PROPOFOL 10 MG/ML 20 ML VIAL IV ONE (11:02)
--- NOTE | 2020-08-19 11:14 | P.PCN ---
Date of Procedure: 08/19/20 Procedure(s) Performed: BRIEF HISTORY: Patient is a 59-year-old, pleasant, male scheduled for an upper endoscopy follow-up large gastric anastomotic ulcer noted in upper endoscopy in 3 months ago when he presented with severe acute upper GI bleed. He has been on Protonix 40 mg daily and doing well. PROCEDURE PERFORMED: Esophagogastroduodenoscopy with biopsy. PREOPERATIVE DIAGNOSIS: Follow-up large gastric anastomotic ulcer.. IV sedation per anesthesia. PROCEDURE: After informed consent was obtained, the patient was brought into the endoscopy unit. IV sedation was administered by Anesthesia under continuous monitoring. Initially the Olympus GIF-140 video endoscope was inserted into the mouth. Esophagus intubated without any difficulty. It was gradually advanced into the stomach . There was evidence of gastrojejunal anastomosis identified. At the anastomosis there was a 1 cm ulceration noted. Distal to the anastomosis there were multiple superficial ulcerations identified. Biopsies were done from the gastrojejunal anastomotic ulcer. The scope was withdrawn to the stomach. Mucosa of the body, cardia and the fundus appeared normal. The scope was then withdrawn into the esophagus. The GE junction was located at 39 cm from the incisors. there was a 1 cm Amin's appearing mucosa just proximal to the GE junction which was biopsied. The rest of theesophagus appeared normal. There were no erosions or ulcerations seen and the patient tolerated the procedure well. IMPRESSION: 1. 1 cm ulcer just distal to the gastric jejunal anastomosis. 2. Multiple superficial small ulcers in the small bowel just distal to the anastomosis. 3. 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 He was advised to follow with the biopsy results. He will continue with Protonix 40 mg daily. he will be seen in office in 6 months
[2020-08-19 11:23] VITALS: RESP 16
[2020-08-19 11:42] VITALS: BP 122/73; PULSE 59
== END 2020-08-19 12:12 | disposition home or self-care (01) ==
LOC: ORWHC2ENDO 09:42
PROVIDERS: ATTEND Internal Medicine Gastroenterology
DX: K28.4 Chronic or unspecified gastrojejunal ulcer with hemorrhage (principal); K22.70 Barrett's esophagus without dysplasia; K29.51 Unspecified chronic gastritis with bleeding; K22.8 Other specified diseases of esophagus; N40.0 Benign prostatic hyperplasia without lower urinary tract symptoms; K21.9 Gastro-esophageal reflux disease without esophagitis; Z98.0 Intestinal bypass and anastomosis status; Z88.2 Allergy status to sulfonamides; Z79.899 Other long term (current) drug therapy
CPT/HCPCS: 43239; J2001; J2704; 88305; 88313; 88342

== ENCOUNTER → 2020-08-19 | Outpatient (CLI) | payer OTHER ==
--- NOTE | 2020-08-19 09:57 | PE ---
EXAMINATION TYPE: PET CT fusion skull to thigh DATE OF EXAM: 08/19/2020 COMPARISON: PET CT December 26, 2019 and outside PET/CT March 15, 2020. HISTORY: Rectal cancer with hepatic metastatic disease progress study. History of surgery October 14, 2018. Completed chemotherapy an radiation treatment December 2019. TECHNIQUE: Following the intravenous administration of 13.59 mCi of F-18 FDG, whole body images are performed from the skull base to the midthigh. Images are reviewed on the computer in the coronal, a xial, and sagittal planes. Reconstructed rotating images are created on independent workstation and reviewed on the computer. A noncontrast CT is performed in conjunction with the PET scan. SCAN: Subsequent Scan FINDINGS: SKULL BASE AND NECK: No new areas of suspicious hypermetabolic uptake. CHEST, MEDIASTINUM, AND HILAR REGION: No new areas of suspicious hypermetabolic uptake. ABDOMEN AND PELVIS: Normal excretion is seen. Surgical changes involving the inferior rectum redemons trated. Stable soft tissue and sutures at this level. No new suspicious hypermetabolic uptake. OSSEOUS STRUCTURES: No new suspicious hypermetabolic uptake. OTHER CT: Right subclavian Mediport catheter terminates in SVC is redemonstrated. Dependent atelectas is both lung bases. Nodular bilateral subareolar gynecomastia redemonstrated. Moderate constipation l evel of the aortic valve redemonstrated. 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 Surgical changes in the liver again seen with stable clips and focal hypodensity. No recurrent or new hypermetabolic masses. Surgical changes epigastric region redemonstrated. Right-sided mid abdominal ostomy with parastomal hernia again seen. No bowel obstruction. Mildly enlarged prostate with central calcifications. Mild/moderate wall thickening in the bladder likely product of radiation treatment i nvolving the pelvis. Multilevel facet arthropathy mid to lower lumbar spine. Surgical clips along the posterior retroperit oneum near abdominal aortic bifurcation. IMPRESSION: No suspicious hypermetabolic uptake on current study to suggest recurrent local or metast atic neoplasm.
== END | disposition home or self-care (01) ==
LOC: RADPETMAIN 07:57
PROVIDERS: ATTEND Internal Medicine Hematology & Oncology
DX: C21.8 Malignant neoplasm of overlapping sites of rectum, anus and anal canal (principal)
CPT/HCPCS: 78815; A9552

== ENCOUNTER 2020-10-17 09:38 | Observation (INO) | payer OTHER ==
[2020-10-17] MEDS ORDERED: PANTOPRAZOLE 40 MG/10 ML VIAL IVP STA (09:55)
--- NOTE | 2020-10-17 10:11 | ED ---
GI Bleed HPI - General Chief complaint: GI Bleed Stated complaint: Cancer pt - hemorrhaging Time Seen by Provider: 10/17/20 09:47 Source: patient, RN notes reviewed Mode of arrival: wheelchair Limitations: no limitations - History of Present Illness Initial comments: This a 60-year-old male presents emergency Department with chief complaint of possible GI bleed. Patient states that he's had this happen the past. Patient has a colostomy which she states is from a bowel resection from colon cancer. Patient states that he has he is off of all treatments since April of this year. Patient was treated by Dr sandoval and Dr. Burgos. Patient states that he noticed blood in his stool last night presented 3 times with blood in it. Patient has no other complaints denies abdominal pain, short breath, fever, chills, chest pain, dizziness. Patient has no dysuria. Patient does not take any blood thinners he does not takes aspirin and is currently on Protonix. - Related Data Home Medications Medication Instructions Recorded Confirmed Multivitamins, Thera [Multivitamin 1 tab PO DAILY 10/03/19 10/17/20 (formulary)] Tamsulosin [Flomax] 0.4 mg PO HS 08/17/20 10/17/20 Pantoprazole Sodium [Protonix] 40 mg PO HS 10/17/20 10/17/20 Allergies Allergy/AdvReac Type Severity Reaction Status Date / Time Sulfa (Sulfonamide Allergy Anaphylaxis Verified 10/17/20 11:23 Antibiotics) Review of Systems ROS Statement: Those systems with pertinent positive or pertinent negative responses have been documented in the HPI. ROS Other: All systems not noted in ROS Statement are negative. Past Medical History Past Medical History: Cancer, GERD/Reflux, Prostate Disorder Additional Past Medical History / Comment(s): colon cancer-LAST CHEMO AND RADIA TION IN May. GI BLEED MARCH 2020 History of Any Multi-Drug Resistant Organisms: None Reported Past Surgical History: Bowel Resection Additional Past Surgical History / Comment(s): liver/rectal colon cancer,. COLONOSCOPY Past Anesthesia/Blood Transfusion Reactions: No Reported Reaction Past Psychological History: No Psychological Hx Reported Smoking Status: Never smoker Past Alcohol Use History: None Reported Past Drug Use History: None Reported - Past Family History Father Family Medical History: Cancer General Exam Limitations: no limitations General appearance: alert, in no apparent distress Head exam: Present: atraumatic, normocephalic, normal inspection Eye exam: Present: normal appearance, PERRL, EOMI. Absent: scleral icterus, conjunctival injection, periorbital swelling Respiratory exam: Present: normal lung sounds bilaterally. Absent: respiratory distress, wheezes, rales, rhonchi, stridor Cardiovascular Exam: Present: regular rate, normal rhythm, normal heart sounds. Absent: systolic murmur, diastolic murmur, rubs, gallop, clicks GI/Abdominal exam: Present: soft, normal bowel sounds, other (Multiple old surgical scars noted, question right lower, there is bloody tinged stool noted). Absent: distended, tenderness, guarding, rebound, rigid Neurological exam: Present: alert, oriented X3 Skin exam: Present: warm, dry, intact, normal color. Absent: rash Course Vital Signs 10/17/20 10/17/20 09:43 10:50 Temperature 98.3 F Pulse Rate 81 80 Respiratory 18 18 Rate Blood Pressure 134/73 116/73 O2 Sat by Pulse 99 97 Oximetry Medical Decision Making - Medical Decision Making Patient status and family history of GI bleed with prior anemia. Patient had 3 colostomy bag full of stool and blood. Patient will be admitted for repeat H&H hemoglobin is stable. - Lab Data Result diagrams: 10/17/20 10:40 10/17/20 10:40 Lab Results 10/17/20 10/17/20 10/17/20 Range/Units 10:36 10:40 10:40 WBC 5.7 (3.8-10.6) k/uL RBC 4.66 (4.30-5.90) m/uL Hgb 13.9 (13.0-17.5) gm/dL Hct 43.0 (39.0-53.0) % MCV 92.3 (80.0-100.0) fL MCH 29.8 (25.0-35.0) pg MCHC 32.3 (31.0-37.0) g/dL RDW 14.6 (11.5-15.5) % Plt Count 268 (150-450) k/uL MPV 7.6 Neutrophils % 67 % Lymphocytes % 14 % Monocytes % 10 % Eosinophils % 4 % Basophils % 1 % Neutrophils # 3.8 (1.3-7.7) k/uL Lymphocytes # 0.8 L (1.0-4.8) k/uL Monocytes # 0.6 (0-1.0) k/uL Eosinophils # 0.2 (0-0.7) k/uL Basophils # 0.0 (0-0.2) k/uL PT 10.7 (9.0-12.0) sec INR 1.0 (<1.2) APTT 22.3 (22.0-30.0) sec Sodium (137-145) mmol/L Potassium (3.5-5.1) mmol/L Chloride (98-107) mmol/L Carbon Dioxide (22-30) mmol/L Anion Gap mmol/L BUN (9-20) mg/dL Creatinine (0.66-1.25) mg/dL Est GFR (CKD-EPI)AfAm (>60 ml/min/1.73 sqM) Est GFR (CKD-EPI)NonAf (>60 ml/min/1.73 sqM) Glucose (74-99) mg/dL Plasma Lactic Acid Han (0.7-2.0) mmol/L Calcium (8.4-10.2) mg/dL Total Bilirubin (0.2-1.3) mg/dL AST (17-59) U/L ALT (4-49) U/L Alkaline Phosphatase (38-126) U/L Troponin I (0.000-0.034) ng/mL Total Protein (6.3-8.2) g/dL Albumin (3.5-5.0) g/dL Lipase (23-300) U/L Blood Type O Positive Blood Type Recheck O Pos Bld Type Recheck Status No Antibody Screen NEGATIVE Spec Expiration Date 10/20/2020233910/17/20 10/17/20 10/17/20 Range/Units 10:40 10:40 10:40 WBC (3.8-10.6) k/uL RBC (4.30-5.90) m/uL Hgb (13.0-17.5) gm/dL Hct (39.0-53.0) % MCV (80.0-100.0) fL MCH (25.0-35.0) pg MCHC (31.0-37.0) g/dL RDW (11.5-15.5) % Plt Count (150-450) k/uL MPV Neutrophils % % Lymphocytes % % Monocytes % % Eosinophils % % Basophils % % Neutrophils # (1.3-7.7) k/uL Lymphocytes # (1.0-4.8) k/uL Monocytes # (0-1.0) k/uL Eosinophils # (0-0.7) k/uL Basophils # (0-0.2) k/uL PT (9.0-12.0) sec INR (<1.2) APTT (22.0-30.0) sec Sodium 136 L (137-145) mmol/L Potassium 4.6 (3.5-5.1) mmol/L Chloride 110 H (98-107) mmol/L Carbon Dioxide 22 (22-30) mmol/L Anion Gap 4 mmol/L BUN 30 H (9-20) mg/dL Creatinine 0.87 (0.66-1.25) mg/dL Est GFR (CKD-EPI)AfAm >90 (>60 ml/min/1.73 sqM) Est GFR (CKD-EPI)NonAf >90 (>60 ml/min/1.73 sqM) Glucose 100 H (74-99) mg/dL Plasma Lactic Acid Han 0.8 (0.7-2.0) mmol/L Calcium 8.6 (8.4-10.2) mg/dL Total Bilirubin 0.4 (0.2-1.3) mg/dL AST 32 (17-59) U/L ALT 22 (4-49) U/L Alkaline Phosphatase 52 (38-126) U/L Troponin I <0.012 (0.000-0.034) ng/mL Total Protein 5.8 L (6.3-8.2) g/dL Albumin 3.4 L (3.5-5.0) g/dL Lipase 91 (23-300) U/L Blood Type Blood Type Recheck Bld Type Recheck Status Antibody Screen Spec Expiration Date - EKG Data -: EKG Interpreted by Me EKG Comments: EKG performed at 17:08 normal sinus rhythm rate of 78 MA 182 QRS 92 QT/QTC 392/423 Disposition Clinical Impression: GI bleed Disposition: ADMITTED IP TO THIS [facility] Condition: Fair Referrals: Val Sue NPC [Primary Care Provider] - 1-2 days Time of Disposition: 12:27
[2020-10-17 11:09] LABS: Basophils % (A) 1 %; Eosinophils # (A) 0.2 k/uL (0-0.7); Eosinophils % (A) 4 %; HGB 13.9 gm/dL (13.0-17.5); Lymphocytes # (A) 0.8 k/uL (1.0-4.8); Lymphocytes % (A) 14 %; MCH 29.8 pg (25.0-35.0); MCHC 32.3 g/dL (31.0-37.0); MCV 92.3 fL (80.0-100.0); Mean Platelet Volume 7.6; Monocytes # (A) 0.6 k/uL (0-1.0); Monocytes % (A) 10 %; Neutrophils # (A) 3.8 k/uL (1.3-7.7); Neutrophils % (A) 67 %; Platelet Count 268 k/uL (150-450); RBC 4.66 m/uL (4.30-5.90); RDW 14.6 % (11.5-15.5); WBC 5.7 k/uL (3.8-10.6)
[2020-10-17 11:18] LABS: ALT 22 U/L (4-49); AST 32 U/L (17-59); African American GFR (CKD) >90 (>60 ml/min/1.73 sqM); Albumin 3.4 g/dL (3.5-5.0); Alkaline Phosphatase 52 U/L (38-126); Anion Gap 4 mmol/L; Blood Urea Nitrogen 30 mg/dL (9-20); Calcium 8.6 mg/dL (8.4-10.2); Carbon Dioxide 22 mmol/L (22-30); Chloride 110 mmol/L (98-107); Glucose 100 mg/dL (74-99); Lipase 91 U/L (23-300); Non-African American GFR(CKD) >90 (>60 ml/min/1.73 sqM); Potassium 4.6 mmol/L (3.5-5.1); Sodium 136 mmol/L (137-145); Total Bilirubin 0.4 mg/dL (0.2-1.3); Total Protein 5.8 g/dL (6.3-8.2)
[2020-10-17 11:28] LABS: Partial Thromboplastin Time 22.3 sec (22.0-30.0); Prothrombin Time 10.7 sec (9.0-12.0)
[2020-10-17] MEDS ORDERED: ACETAMINOPHEN TAB 325 MG TAB PO PRN (12:28)
[2020-10-17] MEDS ORDERED: NALOXONE 0.4 MG/ML 1 ML VIAL IV PRN ×2 (12:28→12:41)
--- NOTE | 2020-10-17 14:02 | P.HPIM ---
History of Present Illness H&P Date: 10/17/20 Chief Complaint: melena 60 year old man with history of GIB, Metastatic Colon Ca s/p resection and colostomy currently in remission presented with melenic stools. Patient says that starting last night, he suddenly developed black stool output from his colostomy bag. This had previously happened earlier in the year, during which time he was noted to be extremely low in blood count, requiring transfusion. EGD at that time demonstrated an anastomotic ulcer distal to the gastrojejunal anastamosis with visible vessel, and underwent clipping. Due to concerns about prior experience, patient decided to come in as soon as he noticed this blood. Notably, he denies lightheadedness, dizziness, chest pain, palps, fatigue, weakness, fevers, chills, nausea, vomiting, chest pain, dyspnea, abdominal pain, dysuria, numbness of his extremities. Review of Systems All Systems reviewed and pertinent positives and negatives noted in HPI, all other symptoms are negative Past Medical History Past Medical History: Cancer, GERD/Reflux, Prostate Disorder Additional Past Medical History / Comment(s): colon cancer-LAST CHEMO AND RADIATION IN May. GI BLEED MARCH 2020 History of Any Multi-Drug Resistant Organisms: None Reported Past Surgical History: Bowel Resection Additional Past Surgical History / Comment(s): liver/rectal colon cancer,. COLONOSCOPY Past Anesthesia/Blood Transfusion Reactions: No Reported Reaction Past Psychological History: No Psychological Hx Reported Smoking Status: Never smoker Past Alcohol Use History: None Reported Past Drug Use History: None Reported - Past Family History Father Family Medical History: Cancer Medications and Allergies Home Medications Medication Instructions Recorded Confirmed Type Multivitamins, Thera [Multivitamin 1 tab PO DAILY 10/03/19 10/17/20 History (formulary)] Tamsulosin [Flomax] 0.4 mg PO HS 08/17/20 10/17/20 History Pantoprazole Sodium [Protonix] 40 mg PO HS 10/17/20 10/17/20 History Allergies Allergy/AdvReac Type Severity Reaction Status Date / Time Sulfa (Sulfonamide Allergy Anaphylaxis Verified 10/17/20 11:23 Antibiotics) Physical Exam Osteopathic Statement: *. No significant issues noted on an osteopathic structural exam other than those noted in the History and Physical/Consult. Vitals: Vital Signs Temp Pulse Resp BP Pulse Ox 10/17/20 10:50 80 18 116/73 97 10/17/20 09:43 98.3 F 81 18 134/73 99 Intake and Output 10/16/20 10/17/20 10/17/20 22:59 06:59 14:59 Other: Weight 81.647 kg Gen: awake, alert HEENT: normocephalic, atraumatic, good hearing acuity, moist mucous membranes Resp: CTAB, good air exchange, no accessory muscle use, no wheezes, crackles, rhonchi CVS: good distal perfusion x 4, RRR, no murmurs, clicks, gallops GI: soft, NTTP, ND, ostomy bag with melenic stool : no SPT, no CVAT, dias catheter not present MSK: no pitting edema, no clubbing Neuro: non-focal, no sensory deficits, appropriate tone Psych: cooperative, euthymic mood Results CBC & Chem 7: 10/17/20 10:40 10/17/20 10:40 Labs: Abnormal Lab Results - Last 24 Hours (Table) 10/17/20 10/17/20 Range/Units 10:40 10:40 Lymphocytes # 0.8 L (1.0-4.8) k/uL Sodium 136 L (137-145) mmol/L Chloride 110 H (98-107) mmol/L BUN 30 H (9-20) mg/dL Glucose 100 H (74-99) mg/dL Total Protein 5.8 L (6.3-8.2) g/dL Albumin 3.4 L (3.5-5.0) g/dL Assessment and Plan Assessment: 1. Melena 2. History of colorectal cancer, with metastasis, and remission 3. BPH 60-year-old male with past medical history of BPH, colorectal cancer with metastasis and remission presented with melenic stools, concerning for upper GI bleed. Plan: - admit to obs - CBC q6h, CMP q6h - maintain active type/screen, large bore IV access - transfuse PRN for goal Hgb > 7 - GI c/s for consideration of EGD - continue home tamsulosin - PPI IV BID - CLD for now, NPO at midnight Full Code
[2020-10-17 18:11] LABS: Basophils # (A) 0.1 k/uL (0-0.2); Basophils % (A) 1 %; Eosinophils # (A) 0.3 k/uL (0-0.7); Eosinophils % (A) 4 %; HCT 41.9 % (39.0-53.0); HGB 13.6 gm/dL (13.0-17.5); Lymphocytes # (A) 1.2 k/uL (1.0-4.8); Lymphocytes % (A) 18 %; MCH 29.8 pg (25.0-35.0); MCHC 32.5 g/dL (31.0-37.0); MCV 91.6 fL (80.0-100.0); Mean Platelet Volume 7.4; Monocytes # (A) 0.5 k/uL (0-1.0); Monocytes % (A) 8 %; Neutrophils # (A) 4.2 k/uL (1.3-7.7); Neutrophils % (A) 65 %; Platelet Count 252 k/uL (150-450); RBC 4.57 m/uL (4.30-5.90); RDW 14.5 % (11.5-15.5); WBC 6.4 k/uL (3.8-10.6)
[2020-10-17] MEDS: PANTOPRAZOLE 40 MG/10 ML VIAL IVP SCH (20:15)
[2020-10-17] MEDS ORDERED: TAMSULOSIN 0.4 MG CAP.ER.24H PO SCH (21:00)
[2020-10-18 02:56] VITALS: RESP 16
[2020-10-18 07:52] LABS: Basophils # (A) 0.1 k/uL (0-0.2); Basophils % (A) 2 %; Eosinophils # (A) 0.2 k/uL (0-0.7); Eosinophils % (A) 5 %; HCT 39.8 % (39.0-53.0); HGB 13.2 gm/dL (13.0-17.5); Lymphocytes # (A) 0.9 k/uL (1.0-4.8); Lymphocytes % (A) 23 %; MCH 30.2 pg (25.0-35.0); MCV 91.5 fL (80.0-100.0); Mean Platelet Volume 7.4; Monocytes # (A) 0.5 k/uL (0-1.0); Monocytes % (A) 13 %; Neutrophils # (A) 2.1 k/uL (1.3-7.7); Neutrophils % (A) 53 %; Platelet Count 254 k/uL (150-450); RBC 4.35 m/uL (4.30-5.90); RDW 14.4 % (11.5-15.5)
[2020-10-18] MEDS: PANTOPRAZOLE 40 MG/10 ML VIAL IVP SCH (08:58)
[2020-10-18] MEDS ORDERED: MULTIVITAMINS, THERA 1 EACH TAB PO SCH (09:00)
[2020-10-18 10:36] VITALS: BP 114/72; PULSE 71; TEMP 98.2
--- NOTE | 2020-10-18 13:33 | P.DS ---
Providers Date of admission: 10/17/20 12:25 Expected date of discharge: 10/18/20 Attending physician: Juaquin Edmonds Consults: 10/17/20 12:28 Consult Physician Urgent Consulting Provider: Kailyn Lima Consult Reason/Comments: GI bleed Do you want consulting provider notified?: Yes Primary care physician: SHARON Whiting Hospital Course: 1. Melena 2. History of colorectal cancer, with metastasis, and remission 3. BPH 60-year-old male with past medical history of BPH, colorectal cancer with metastasis and remission presented with melenic stools, concerning for upper GI bleed. However, his hemoglobin remained stable and his stools cleared up with medical management. He was seen by GI who cleared patient for discharge with recommendations to follow up in clinic. Patient returned home in stable condition. Assessment: Gen: awake, alert HEENT: normocephalic, atraumatic, good hearing acuity, moist mucous membranes Resp: CTAB, good air exchange, no accessory muscle use, no wheezes, crackles, rhonchi CVS: good distal perfusion x 4, RRR, no murmurs, clicks, gallops GI: soft, NTTP, ND, ostomy bag with melenic stool : no SPT, no CVAT, dias catheter not present MSK: no pitting edema, no clubbing Neuro: non-focal, no sensory deficits, appropriate tone Psych: cooperative, euthymic mood Patient Condition at Discharge: Good Plan - Discharge Summary New Discharge Prescriptions: Continue Multivitamins, Thera [Multivitamin (formulary)] 1 tab PO DAILY Tamsulosin [Flomax] 0.4 mg PO HS Pantoprazole Sodium [Protonix] 40 mg PO HS Discharge Medication List Multivitamins, Thera [Multivitamin (formulary)] 1 tab PO DAILY 10/03/19 [Hi story] Tamsulosin [Flomax] 0.4 mg PO HS 08/17/20 [History] Pantoprazole Sodium [Protonix] 40 mg PO HS 10/17/20 [History] Follow up Appointment(s)/Referral(s): Val Sue NPC [Primary Care Provider] - 1-2 days Carter Jamison MD [STAFF PHYSICIAN] - 1 Week Discharge Disposition: HOME SELF-CARE
== END 2020-10-18 13:38 | disposition home or self-care (01) ==
LOC: EC 09:38 → 1SOBS 12:25
PROVIDERS: ADMIT Internal Medicine; ATTEND Internal Medicine
DX: K92.1 Melena (principal); N40.0 Benign prostatic hyperplasia without lower urinary tract symptoms; Z93.3 Colostomy status; K21.9 Gastro-esophageal reflux disease without esophagitis; Z85.038 Personal history of other malignant neoplasm of large intestine; Z85.05 Personal history of malignant neoplasm of liver; Z85.048 Personal history of other malignant neoplasm of rectum, rectosigmoid junction, and anus; Z85.9 Personal history of malignant neoplasm, unspecified; Z79.899 Other long term (current) drug therapy; Z88.2 Allergy status to sulfonamides; Z90.49 Acquired absence of other specified parts of digestive tract; Z92.21 Personal history of antineoplastic chemotherapy; Z92.3 Personal history of irradiation; Z80.9 Family history of malignant neoplasm, unspecified; Z83.79 Family history of other diseases of the digestive system
CPT/HCPCS: 96375; 96376 ×2; 96374; 99285; 36415; 94760; 93005; 86900; 86901; 80053; 83605; 83690; 84484; 85025 ×2; 85610; 85730; 86850; G0378 ×2; J1642; C9113 ×2

== ENCOUNTER 2020-12-27 17:06 | Inpatient (IN) | payer OTHER ==
[2020-12-27] MEDS ORDERED: SODIUM CHLORIDE 0.9% 1,000 ML IV STA (17:39)
--- NOTE | 2020-12-27 17:48 | ED ---
General Adult HPI - General Chief complaint: Weakness Stated complaint: weakness Time Seen by Provider: 12/27/20 17:09 Source: patient, RN notes reviewed, old records reviewed Mode of arrival: EMS Limitations: no limitations - History of Present Illness Initial comments: 60-year-old male presenting for evaluation generalized weakness, fatigue. Patient states that he's had increased output from his ostomy with any finger leads. No vomiting. No fever. No cough or chest pain. No pain complaints. Patient is currently being treated for colorectal cancer. He was sent over from his oncologist office for evaluation and concern for dehydration. - Related Data Home Medications Medication Instructions Recorded Confirmed Multivitamins, Thera [Multivitamin 1 tab PO DAILY 10/03/19 10/17/20 (formulary)] Tamsulosin [Flomax] 0.4 mg PO HS 08/17/20 10/17/20 Pantoprazole Sodium [Protonix] 40 mg PO HS 10/17/20 10/17/20 Allergies Allergy/AdvReac Type Severity Reaction Status Date / Time Sulfa (Sulfonamide Allergy Anaphylaxis Verified 12/27/20 17:14 Antibiotics) Review of Systems ROS Statement: Those systems with pertinent positive or pertinent negative responses have been documented in the HPI. ROS Other: All systems not noted in ROS Statement are negative. Past Medical History Past Medical History: Cancer, GERD/Reflux, Prostate Disorder Additional Past Medical History / Comment(s): colon cancer-LAST CHEMO AND RADIATION IN May. GI BLEED MARCH 2020 History of Any Multi-Drug Resistant Organisms: None Reported Past Surgical History: Bowel Resection Additional Past Surgical History / Comment(s): liver/rectal colon cancer,. COLONOSCOPY Past Anesthesia/Blood Transfusion Reactions: No Reported Reaction Past Psychological History: No Psychological Hx Reported Smoking Status: Never smoker Past Alcohol Use History: None Reported Past Drug Use History: None Reported - Past Family History Father Family Medical History: Cancer General Exam Limitations: no limitations General appearance: alert, in no apparent distress Head exam: Present: atraumatic, normocephalic Eye exam: Present: normal appearance, PERRL ENT exam: Present: mucous membranes dry Neck exam: Present: normal inspection. Absent: tenderness, meningismus Respiratory exam: Present: normal lung sounds bilaterally. Absent: respiratory distress, wheezes Cardiovascular Exam: Present: normal rhythm, tachycardia GI/Abdominal exam: Present: soft. Absent: distended, tenderness, guarding Neurological exam: Present: alert, oriented X3, CN II-XII intact. Absent: motor sensory deficit Psychiatric exam: Present: normal affect, normal mood Skin exam: Present: warm, dry, intact Course Vital Signs 12/27/20 12/27/20 17:11 18:32 Temperature 97.9 F 97.9 F Pulse Rate 109 H 80 Respiratory 18 18 Rate Blood Pressure 117/75 138/78 O2 Sat by Pulse 99 98 Oximetry EKG Findings - EKG Comments: EKG Findings:: EKG: Normal sinus rhythm, no ST segment elevation, hyper acute T waves in the precordial leads, rate of 93, MN interval 178, QRS duration 96, QTC 4:30 Medical Decision Making - Medical Decision Making 60-year-old male with colon cancer, recent chemo presenting for evaluation of dehydration, generalized weakness. Workup was initiated, EKG showing sinus rhythm, patient has a normal CBC, CMP shows a hyponatremia 129, elevated serum creatinine 1.29. Chest x-rays negative for acute cardiopulmonary disease. He is given IV hydration, reevaluation patient is somewhat better. He will be admitted for continuous IV hydration, case discussed with who will admit, hematology oncology placed on consult. - Lab Data Result diagrams: 12/27/20 17:41 12/27/20 17:41 Lab Results 12/27/20 12/27/20 12/27/20 Range/Units 17:41 17:41 17:41 WBC 6.0 (3.8-10.6) k/uL RBC 5.58 (4.30-5.90) m/uL Hgb 16.1 (13.0-17.5) gm/dL Hct 50.1 (39.0-53.0) % MCV 89.7 (80.0-100.0) fL MCH 28.8 (25.0-35.0) pg MCHC 32.1 (31.0-37.0) g/dL RDW 20.7 H (11.5-15.5) % Plt Count 213 (150-450) k/uL MPV 9.2 Neutrophils % (Manual) 58 % Lymphocytes % (Manual) 15 % Monocytes % (Manual) 27 % Neutrophils # (Manual) 3.48 (1.3-7.7) k/uL Lymphocytes # (Manual) 0.90 L (1.0-4.8) k/uL Monocytes # (Manual) 1.62 H (0-1.0) k/uL Nucleated RBCs 0 (0-0) /100 WBC Anisocytosis Moderate Macrocytosis Slight [place] Bodies Present PT 12.4 H (9.0-12.0) sec INR 1.2 H (<1.2) APTT 51.5 H (22.0-30.0) sec Sodium 129 L (137-145) mmol/L Potassium 4.2 (3.5-5.1) mmol/L Chloride 102 (98-107) mmol/L Carbon Dioxide 16 L (22-30) mmol/L Anion Gap 11 mmol/L BUN 31 H (9-20) mg/dL Creatinine 1.29 H (0.66-1.25) mg/dL Est GFR (CKD-EPI)AfAm 69 (>60 ml/min/1.73 sqM) Est GFR (CKD-EPI)NonAf 60 (>60 ml/min/1.73 sqM) Glucose 123 H (74-99) mg/dL Plasma Lactic Acid Han (0.7-2.0) mmol/L Calcium 9.5 (8.4-10.2) mg/dL Magnesium 2.1 (1.6-2.3) mg/dL Total Bilirubin 0.8 (0.2-1.3) mg/dL AST 66 H (17-59) U/L ALT 59 H (4-49) U/L Alkaline Phosphatase 88 (38-126) U/L Total Protein 7.1 (6.3-8.2) g/dL Albumin 3.8 (3.5-5.0) g/dL 12/27/20 Range/Units 17:41 WBC (3.8-10.6) k/uL RBC (4.30-5.90) m/uL Hgb (13.0-17.5) gm/dL Hct (39.0-53.0) % MCV (80.0-100.0) fL MCH (25.0-35.0) pg MCHC (31.0-37.0) g/dL RDW (11.5-15.5) % Plt Count (150-450) k/uL MPV Neutrophils % (Manual) % Lymphocytes % (Manual) % Monocytes % (Manual) % Neutrophils # (Manual) (1.3-7.7) k/uL Lymphocytes # (Manual) (1.0-4.8) k/uL Monocytes # (Manual) (0-1.0) k/uL Nucleated RBCs (0-0) /100 WBC Anisocytosis Macrocytosis [place] Bodies PT (9.0-12.0) sec INR (<1.2) APTT (22.0-30.0) sec Sodium (137-145) mmol/L Potassium (3.5-5.1) mmol/L Chloride (98-107) mmol/L Carbon Dioxide (22-30) mmol/L Anion Gap mmol/L BUN (9-20) mg/dL Creatinine (0.66-1.25) mg/dL Est GFR (CKD-EPI)AfAm (>60 ml/min/1.73 sqM) Est GFR (CKD-EPI)NonAf (>60 ml/min/1.73 sqM) Glucose (74-99) mg/dL Plasma Lactic Acid Han 1.7 (0.7-2.0) mmol/L Calcium (8.4-10.2) mg/dL Magnesium (1.6-2.3) mg/dL Total Bilirubin (0.2-1.3) mg/dL AST (17-59) U/L ALT (4-49) U/L Alkaline Phosphatase (38-126) U/L Total Protein (6.3-8.2) g/dL Albumin (3.5-5.0) g/dL Disposition Clinical Impression: Dehydration, Rectal adenocarcinoma Disposition: ADMITTED IP TO THIS [facility] Condition: Stable Is patient prescribed a controlled substance at d/c from ED?: No Referrals: Val Sue NPC [Primary Care Provider] - 1-2 days Decision to Admit Reason: Admit from EC Decision Date: 12/27/20 Decision Time: 19:35
[2020-12-27 18:28] LABS: INR 1.2 (<1.2); Partial Thromboplastin Time 51.5 sec (22.0-30.0); Prothrombin Time 12.4 sec (9.0-12.0)
[2020-12-27 18:40] LABS: Anisocytosis Moderate; HCT 50.1 % (39.0-53.0); HGB 16.1 gm/dL (13.0-17.5); MCH 28.8 pg (25.0-35.0); MCHC 32.1 g/dL (31.0-37.0); MCV 89.7 fL (80.0-100.0); Macrocytosis Slight; Mean Platelet Volume 9.2; Platelet Count 213 k/uL (150-450); RBC 5.58 m/uL (4.30-5.90); RDW 20.7 % (11.5-15.5)
--- NOTE | 2020-12-27 18:54 | XR ---
EXAMINATION TYPE: XR chest 2V DATE OF EXAM: 12/27/2020 COMPARISON: NONE HISTORY: Weakness TECHNIQUE: 2 views FINDINGS: Heart is normal. Lungs are clear of consolidation. There are no hilar masses. There is righ t central venous catheter with tip in the superior vena cava. Bony thorax is intact. Costophrenic ang les are clear. IMPRESSION: No active cardiopulmonary disease. Normal heart.
[2020-12-27 19:01] LABS: Albumin 3.8 g/dL (3.5-5.0); Calcium 9.5 mg/dL (8.4-10.2); Magnesium 2.1 mg/dL (1.6-2.3); Total Bilirubin 0.8 mg/dL (0.2-1.3); Total Protein 7.1 g/dL (6.3-8.2)
[2020-12-27 19:03] LABS: Potassium 4.2 mmol/L (3.5-5.1)
[2020-12-27 19:04] LABS: Monocytes # (M) 1.62 k/uL (0-1.0); Neutrophils # (M) 3.48 k/uL (1.3-7.7); Neutrophils % (M) 58 %; Nucleated Red Blood Cells 0 /100 WBC (0-0); Total Cells Counted 100
[2020-12-27 19:09] LABS: Howell-Jolly Bodies Present
[2020-12-27] MEDS ORDERED: NALOXONE 0.4 MG/ML 1 ML VIAL IV PRN (19:32)
[2020-12-27 21:35] LABS: Appearance,Urine Clear (Clear); Bilirubin,Urine Negative (Negative); Blood,Urine Small (Negative); Calcium Oxalate Crystals,Urine Few /hpf; Color,Urine Yellow; Glucose,Urine (UA) Negative (Negative); Hyaline Casts,Urine 1 /lpf (0-2); Ketones,Urine Negative (Negative); Leukocyte Esterase,Urine Negative (Negative); Mucus,Urine Rare /hpf; Nitrite,Urine Negative (Negative); Protein,Urine 2+ (Negative); RBC,Urine 47 /hpf (0-5); Urobilinogen,Urine <2.0 mg/dL (<2.0); WBC,Urine 3 /hpf (0-5)
--- NOTE | 2020-12-27 22:06 | P.HPIM ---
History of Present Illness H&P Date: 12/27/20 Patient is a 60-year-old male with a PMH of metastatic colon cancer status post colostomy and resection currently undergoing oral chemotherapy for suspected relapse who was sent to the emergency room by his oncologist for dehydration and failure to thrive. Patient notes that he has been experiencing diarrhea for the past 3 weeks, and as a result has lost roughly 30 pounds in weight. He reports taking his colostomy bag multiple times an hour. Notes feeling tired and doesn't have the energy to complete his ADLs. He denied additional complaints however. Denied noticing GI bleeding. Denied chest discomfort, shortness of breath, fever, chills, cough, nausea, vomiting. In the emergency room, an EKG revealed normal sinus rhythm at 93 bpm with no ischemic ST/T-wave changes noted as reviewed by me. Chest x-ray was unremarkable. Laboratory evaluation was remarkable for sodium 129, CO2 16, BUN 31, creatinine 1.29, AST 66, ALT 59, and glucose 123. Review of Systems Pertinent positives and negatives as discussed in HPI, a complete review of systems was performed and all other systems are negative. Past Medical History Past Medical History: Cancer, GERD/Reflux, Prostate Disorder Additional Past Medical History / Comment(s): colon cancer-LAST CHEMO AND RADIATION IN May. GI BLEED MARCH 2020 History of Any Multi-Drug Resistant Organisms: None Reported Past Surgical History: Bowel Resection Additional Past Surgical History / Comment(s): liver/rectal colon cancer,. COLONOSCOPY Past Anesthesia/Blood Transfusion Reactions: No Reported Reaction Past Psychological History: No Psychological Hx Reported Smoking Status: Never smoker Past Alcohol Use History: None Reported Past Drug Use History: None Reported - Past Family History Father Family Medical History: Cancer Medications and Allergies Home Medications Medication Instructions Recorded Confirmed Type Tamsulosin [Flomax] 0.4 mg PO HS 08/17/20 12/27/20 History Pantoprazole Sodium [Protonix] 40 mg PO DAILY 10/17/20 12/27/20 History Diphenox-Atrop 2.5-0.025 mg 1 tab PO Q6H PRN 12/27/20 12/27/20 History [Lomotil] Loperamide HCl [Imodium A-D] 2 mg PO Q6H PRN 12/27/20 12/27/20 History Allergies Allergy/AdvReac Type Severity Reaction Status Date / Time Sulfa (Sulfonamide Allergy Anaphylaxis Verified 12/27/20 20:13 Antibiotics) Physical Exam Vitals: Vital Signs Temp Pulse Pulse Resp BP BP Pulse Ox 12/27/20 20:27 97.4 F L 83 16 124/82 99 12/27/20 18:32 97.9 F 80 18 138/78 98 12/27/20 17:11 97.9 F 109 H 18 117/75 99 Intake and Output 12/27/20 12/27/20 12/27/20 06:59 14:59 22:59 Other: Weight 69.853 kg General: Somewhat ill-appearing, no distress, appears at stated age, normal weight Derm: no unusual rashes/lesions no unusual ecchymoses, warm, dry Head: atraumatic, normocephalic, symmetric Eyes: EOMI, no lid lag, anicteric sclera, pupils equal round reactive to light ENT: Nose and ears atraumatic, no thrush, no pharyngeal erythema Neck: No thyromegaly, no cervical lymphadenopathy, trachea midline, supple Mouth: no lip lesion, mucus membranes moist Cardiovascular: S1S2 reg, no murmur, positive posterior tibial pulse bilateral, no edema, capillary refill less than 2 seconds, right-sided Chemo-Port in place Lungs: CTA bilateral, no rhonchi, no rales , no accessory muscle use Abdominal: soft, colostomy in place with watery brown stool in bag, nontender to palpation, no guarding, no appreciable organomegaly Ext: no gross muscle atrophy, muscle strength 5 out of 5 in all 4 extremities grossly, no contractures, Neuro: CN II-XI grossly intact, light touch intact all 4 extremities, finger to nose within normal limits, Psych: Alert, oriented, appropriate affect Results CBC & Chem 7: 12/27/20 17:41 12/27/20 17:41 Labs: Abnormal Lab Results - Last 24 Hours (Table) 12/27/20 12/27/20 12/27/20 Range/Units 17:41 17:41 17:41 RDW 20.7 H (11.5-15.5) % Lymphocytes # (Manual) 0.90 L (1.0-4.8) k/uL Monocytes # (Manual) 1.62 H (0-1.0) k/uL PT 12.4 H (9.0-12.0) sec INR 1.2 H (<1.2) APTT 51.5 H (22.0-30.0) sec Sodium (137-145) mmol/L Carbon Dioxide (22-30) mmol/L BUN (9-20) mg/dL Creatinine (0.66-1.25) mg/dL Glucose (74-99) mg/dL AST (17-59) U/L ALT (4-49) U/L Urine Protein 2+ H (Negative) Urine Blood Small H (Negative) Urine RBC 47 H (0-5) /hpf Calcium Oxalate Crystal Few H (None) /hpf Urine Mucus Rare H (None) /hpf 12/27/20 Range/Units 17:41 RDW (11.5-15.5) % Lymphocytes # (Manual) (1.0-4.8) k/uL Monocytes # (Manual) (0-1.0) k/uL PT (9.0-12.0) sec INR (<1.2) APTT (22.0-30.0) sec Sodium 129 L (137-145) mmol/L Carbon Dioxide 16 L (22-30) mmol/L BUN 31 H (9-20) mg/dL Creatinine 1.29 H (0.66-1.25) mg/dL Glucose 123 H (74-99) mg/dL AST 66 H (17-59) U/L ALT 59 H (4-49) U/L Urine Protein (Negative) Urine Blood (Negative) Urine RBC (0-5) /hpf Calcium Oxalate Crystal (None) /hpf Urine Mucus (None) /hpf Assessment and Plan Plan: Acute kidney injury, likely secondary to dehydration from diarrhea -Oncology consult -Patient does not recall the name of his oral chemotherapeutic agent -Diarrhea possibly a side effect of chemotherapy, unclear etiology at this time -F/u lactoferrin, stool culture, and C diff testing -Continue with IV fluids -Monitor BMP Hyponatremia, likely secondary to poor nutritional status -Continue IV fluids -Monitor for now Abnormal LFTs -May again be a side effect of chemotherapeutic agent -No other obvious etiology noted DVT prophylaxis -Lovenox The patient is admitted with an anticipated greater than 2 midnight stay for evaluation of NISH CODE STATUS: Full Code Discussed with: Patient Anticipated discharge date: 12/[address]: Home A total of 35 minutes was spent on the care of this complex patient more than 50% of the time was spent in counseling and care coordination.
[2020-12-28] MEDS: SODIUM CHLORIDE 0.9% 1,000 ML IV SCH ×3 (08:55→21:52)
[2020-12-28] MEDS: ENOXAPARIN 40 MG/0.4 ML SYRINGE SQ SCH (08:55)
[2020-12-28 09:45] LABS: African American GFR (CKD) 83.5 (60.0-200.0); Albumin 3.4 g/dL (3.80-4.90); Albumin/Globulin Ratio 2.13 (1.60-3.17); Anion Gap 6.7 mmol/L (4.00-12.00); BUN/Creat Ratio 22.73 Ratio (12.00-20.00); Calcium 8.5 mg/dL (8.7-10.3); Carbon Dioxide 23.3 mmol/L (21.6-31.8); Globulin 1.6 g/dL (1.6-3.3); Magnesium 1.7 mg/dL (1.5-2.4); Non-African American GFR(CKD) 72.1 (60.0-200.0); Potassium 3.7 mmol/L (3.5-5.5); Total Bilirubin 0.5 mg/dL (0.2-1.2)
[2020-12-28] MEDS: CHOLESTYRAMINE (WITH SUGAR) 4 GM PACKET PO SCH ×3 (11:50→17:10)
[2020-12-28] MEDS: PETROLATUM, WHITE OINT 50 GM TUBE TOPICAL SCH ×2 (11:50→21:52)
[2020-12-28] MEDS: HYDROCORTISONE 1% CREAM 30 GM TUBE TOPICAL SCH ×2 (11:51→21:52)
--- NOTE | 2020-12-28 12:58 | P.CONS ---
History of Present Illness - Reason for Consult Consult date: 12/28/20 on treatment for metastatic rectal cancer Requesting physician: Gautam Barajas - Chief Complaint intractable diarrhea - History of Present Illness Mr. Garrison is a very pleasant pt of Dr. Andrade, well known to the practice. He had rectal polyp found during routine screening colonoscopy done on 06/08/2013 which was resected, path revealed moderately differentiated adenocarcinoma arising in an adenoma and extending to margins. Sigmoidoscopy on 07/07/2013 and multiple b iopsies were taken from the site of the previous polyp, all reactive changes, no malignancy. T1 tumor that appeared to be completely resected transanally, the plan was for surveillance. Patient did not follow-up with surveillance colonoscopies as recommended. Referred to Dr. Gates 03/28 by his PCP, repeat colonoscopy on 04/03/18 found a suspicious lesion at 8 cm (the same site as the previous). Biopsies revealed high-grade dysplasia but, not overt malignant. EUS 04/15/18, showed mass to be predominantly T2, with a section of it showing T3 invasion, no adjacent nodes appear to be involved. Case reviewed at [facility], Tx for T3 and higher involves chemotherapy, which could not be administered without a definite diagnosis of malignancy, repeat biopsy recommended. This was done via sigmoidoscopy on 05/01/18 confirming a moderately differentiated adenocarcinoma. Staging CT CAP 04/28/18 showed a hypodense subcentimeter lesion with ill-defined borders in the upper left lobe of the liver, with metastatic disease not excluded. Seen 05/08/18 by Medical Oncology. CEA 19.8, MRI of the liver was indeterminate, PET was negative. Liver biopsy 06/19/18, positive for adenocarcinoma c/w colon primary. Started FOLFOX, Vectibix was added with C 3 as KRAS was wild type. He proceeded to liver and rectal resection in 10/28 at [facility]. He has complications and sepsis post op. He came back to the office to establish f/u in late 05/29. Restaging CT scans, CEA 2.5. Scan showed a 4.4 cm lesion in the left dome area, with surrounding surgical clips, more likely post surgical defect. PET 07/30 showed uptake only in the RLQ/rt pararenal space which appeared to be inflammatory. Referred to [facility] to get an opinion re: any benefit of chemo at this point, with such a delay postop. Pt did not go as he lost his insurance. Admitted to [facility] for a GIB in 09/29 due to a gastric ulcer, treated endoscopically. Repeat CT 12/03/19 showed stable findings. Again, referred to [facility] , as he now had insurance, but, stated that he had not heard from them, when seen in 11/30. Finally established with [facility] 12/31. CEA had increased to 14. The patient had additional workup with colonoscopy, CT scans and PET through -01/28 which were negative for any evidence of recurrence. He had follow-up imaging with MRI in 03/30 which now showed evidence of recurrence in the presacral space, left obturator and left prostate region, as well as a possible nodule near the stoma. The latter however was felt to be nonspecific. There was no evidence of disease elsewhere. Therefore, concurrent chemoradiation with Xeloda was recommended. He started 04/30, completed it 06/03/20. Referred back to the [facility] to get a formal surgical opinion. Repeat PET scan on 08/29/20 showed no evidence of disease. The patient was seen by Dr. Dobbs and his case discussed at the [facility]. It was felt that he was not resectable, and maintenance chemotherapy was recommended. It was also recommended against reversal of ileostomy. Pt started maintenance XELOX +Vectibix on 11/22/20. He had significant diarrhea with cycle 1, so dose was decreased to 2000 mg twice a day with cycle 2. He started cycle 2 on 12/13/20. However, he developed rapid onset of diarrhea and decreased appetite again, and stopped Xeloda around 12/17/20. He was seen in [facility] yesterday with c/o persistent watery diarrhea with everything going through him as soon as he eats. He received hydration in the office last week with some subjective improvement for a couple of days, followed by recurrence of symptoms. Additional c/o marked weakness, very poor oral intake, and shortness of breath on exertion, as well as dizziness on ambulation. He has developed prolapse bowel in his ostomy bag. Admitted from [facility] with clinical dehydration, persistent diarrhea, weakness, easy fatigue. EGFR rash is stable, denies fever, chills, oral irritation, mild SOB on exertion but no chest pain or palpitations, abd pain, bleeding, swelling or PPE. Review of Systems 14 point ROS is neg except as stated in HPI Past Medical History Past Medical History: Cancer, GERD/Reflux, Prostate Disorder Additional Past Medical History / Comment(s): colon cancer-LAST CHEMO AND RADIATION IN May. GI BLEED MARCH 2020 History of Any Multi-Drug Resistant Organisms: None Reported Past Surgical History: Bowel Resection Additional Past Surgical History / Comment(s): liver/rectal colon cancer,. COLONOSCOPY Past Anesthesia/Blood Transfusion Reactions: No Reported Reaction Past Psychological History: No Psychological Hx Reported Smoking Status: Never smoker Past Alcohol Use History: None Reported Past Drug Use History: None Reported - Past Family History Father Family Medical History: Cancer Medications and Allergies Home Medications Medication Instructions Recorded Confirmed Type Tamsulosin [Flomax] 0.4 mg PO HS 08/17/20 12/27/20 History Pantoprazole Sodium [Protonix] 40 mg PO DAILY 10/17/20 12/27/20 History Diphenox-Atrop 2.5-0.025 mg 1 tab PO Q6H PRN 12/27/20 12/27/20 History [Lomotil] Loperamide HCl [Imodium A-D] 2 mg PO Q6H PRN 12/27/20 12/27/20 History Allergies Allergy/AdvReac Type Severity Reaction Status Date / Time Sulfa (Sulfonamide Allergy Anaphylaxis Verified 12/27/20 20:13 Antibiotics) Physical Exam Vitals: Vital Signs Temp Pulse Pulse Resp BP BP Pulse Ox 12/28/20 02:00 98.3 F 80 16 110/73 98 12/27/20 20:27 97.4 F L 83 16 124/82 99 12/27/20 18:32 97.9 F 80 18 138/78 98 12/27/20 17:11 97.9 F 109 H 18 117/75 99 Intake and Output 12/27/20 12/28/20 12/28/20 22:59 06:59 14:59 Other: Voiding Method Toilet Weight 69.853 kg - Constitutional General appearance: cooperative, no acute distress, thin - EENT Eyes: anicteric sclerae, EOMI ENT: hearing grossly normal, normal oropharynx - Neck Neck: no lymphadenopathy - Respiratory Respiratory: bilateral: CTA - Cardiovascular Rhythm: regular Heart sounds: normal: S1, S2 Abnormal Heart Sounds: systolic murmur leg Peripheral Edema: bilateral: None - Gastrointestinal rt abd ostomy General gastrointestinal: no absent bowel sounds, no decreased bowel sounds, no distended, no hepatomegaly, no hyperactive bowel sounds, normal bowel sounds, no organomegaly, no rigid, no scaphoid, soft, no splenomegaly, no tenderness, no umbilical hernia, no ventral hernia - Integumentary Integumentary: rash (EGFR rash-grade 1) - Neurologic Neurologic: CNII-XII intact - Musculoskeletal Musculoskeletal: generalized weakness, strength equal bilaterally - Psychiatric Psychiatric: A&O x's 3, appropriate affect, intact judgment & insight Results CBC & Chem 7: 12/27/20 17:41 12/28/20 06:01 Labs: Abnormal Lab Results - Last 24 Hours (Table) 12/27/20 12/27/20 12/27/20 Range/Units 17:41 17:41 17:41 RDW 20.7 H (11.5-15.5) % Lymphocytes # (Manual) 0.90 L (1.0-4.8) k/uL Monocytes # (Manual) 1.62 H (0-1.0) k/uL PT 12.4 H (9.0-12.0) sec INR 1.2 H (<1.2) APTT 51.5 H (22.0-30.0) sec Sodium (137-145) mmol/L Carbon Dioxide (22-30) mmol/L BUN (9-20) mg/dL Creatinine (0.66-1.25) mg/dL Glucose (74-99) mg/dL AST (17-59) U/L ALT (4-49) U/L Urine Protein 2+ H (Negative) Urine Blood Small H (Negative) Urine RBC 47 H (0-5) /hpf Calcium Oxalate Crystal Few H (None) /hpf Urine Mucus Rare H (None) /hpf 12/27/20 Range/Units 17:41 RDW (11.5-15.5) % Lymphocytes # (Manual) (1.0-4.8) k/uL Monocytes # (Manual) (0-1.0) k/uL PT (9.0-12.0) sec INR (<1.2) APTT (22.0-30.0) sec Sodium 129 L (137-145) mmol/L Carbon Dioxide 16 L (22-30) mmol/L BUN 31 H (9-20) mg/dL Creatinine 1.29 H (0.66-1.25) mg/dL Glucose 123 H (74-99) mg/dL AST 66 H (17-59) U/L ALT 59 H (4-49) U/L Urine Protein (Negative) Urine Blood (Negative) Urine RBC (0-5) /hpf Calcium Oxalate Crystal (None) /hpf Urine Mucus (None) /hpf Microbiology - Last 24 Hours (Table) 12/27/20 20:19 Stool Culture - Preliminary Stool Assessment and Plan (1) Diarrhea Narrative/Plan: Pt has had diarrhea while on xeloda, dose was reduced with cycle 2 but, diarrhea recurred rather quickly. He has now been off all treatment for 10 days. C-diff neg, stool culture pending. Questran started. Pt has recently consumed copious amounts of vit C-1 gallon of OJ and an entire bag of jannet oranges in the last week. Current Visit: Yes Status: Acute Priority: High Code(s): R19.7 - DIARRHEA, UNSPECIFIED SNOMED Code(s): 56731956 (2) Dehydration Narrative/Plan: IV fluids, clear liquid diet, encourage oral intake as tolerated Current Visit: Yes Status: Acute Priority: High Code(s): E86.0 - D EHYDRATION SNOMED Code(s): 89595709 (3) Rectal adenocarcinoma Narrative/Plan: Pt has not been tolerating most recent treatment of xeloda, oxalilplatin and vectibix. He s/p 2 cycles with delay in start of 2nd cycle, dose reduction and has been off treatment now for 10 days. He will need to be re-evaluated by Primary Onc prior to resuming treatment. Current Visit: Yes Status: Chronic Priority: Medium Code(s): C20 - MAL IGNANT NEOPLASM OF RECTUM SNOMED Code(s): 169707707 (4) Drug rash Narrative/Plan: From EGFR tx. Treat with aquaphor and hydrocortisone cream. Current Visit: Yes Status: Chronic Priority: Medium Code(s): L27.0 - GEN SKIN ERUPTION DUE TO DRUGS AND MEDS TAKEN INTERNALLY SNOMED Code(s): 29295440 Plan: Iron studies and B vitamin levels for the vit C cravings-no recent labs in office. Salt and soda Discuss case with Attending Doctor attests: I performed a history and physical examination of this patient, developed impression and plan of care, discussed with dictator. I agree with dictators note, documented as a scribe.
[2020-12-28 13:15] VITALS: BMI 23.4
[2020-12-28 14:33] LABS: % Iron Saturation 22.61 (15.00-50.00)
[2020-12-28] MEDS: SALT AND SODA MOUTHWASH 1,000 ML PO SCH ×3 (14:55→21:52)
[2020-12-28 15:31] LABS: Ferritin 444.5 ng/mL (22.0-322.0)
--- NOTE | 2020-12-28 17:26 | P.PN ---
Subjective Progress Note Date: 12/28/20 (Delayed charting seen at 1100) Principal diagnosis: Diarrhea Patient is a 60-year-old male for history of stage IV rectal adenocarcinoma status post cholecystectomy currently undergoing treatment with Vectibix and Xelox in addition to Xeloda, GERD, gastric ulcer, prostate disorder who presented to the emergency department at the direction of Dr. Andrade secondary to dehydration and intractable diarrhea. In the ER he underwent extensive evaluation. He was tachycardic on arrival with a pulse of 109. Initial laboratory analysis showed sodium 129, BUN 31, creatinine 1.29, AST 66, and ALT 59. He is status post cycle #2 of his current regimen. This was dose reduced secondary to severe diarrhea during his initial treatment. He also started Xeloda early on 12/17 secondary to increasing diarrhea. He was admitted and started on IV fluids. Oncology was consulted. Initial C. diff was negative. Fecal lactoferrin was positive. Patient seen and examined at bedside. He denies any abdominal pain or nausea. He continues to complain of diarrhea though he has only had to empty his ostomy bag twice this morning. He denies any chest pain or shortness of breath. His weakness is feeling much improved. He reports that he has lost 30 pounds in the last 3 weeks General: Ill appearing, no distress, appears at stated age, cachectic with temporal and buccal fat pad wasting Derm: warm, dry Head: atraumatic, normocephalic, symmetric Eyes: EOMI, no lid lag, anicteric sclera Mouth: no lip lesion, mucous membranes dry Cardiovascular: S1S2 reg, no murmur, positive posterior tibial pulse bilateral, Lungs: CTA bilateral, no rhonchi, no rales , no accessory muscle use Abdominal: soft, nontender to palpation, no guarding, no appreciable organomegaly, ostomy with large stomal prolapse Ext: no gross muscle atrophy, no edema, no contractures Neuro: CN II-XI grossly intact, no focal neuro deficits Psych: Alert, oriented, appropriate affect Hyponatremia and acute kidney injury secondary to dehydration -Continue with IV fluids -Follow renal function -Encourage oral intake Intractable diarrhea -Suspect related to chemotherapy -Oncology recommendations appreciated: Started on cholestyramine, clear liquid diet -Fecal lactoferrin positive, await stool culture, Giardia and cryptosporidium are pending -Monitor output Metastatic rectal adenocarcinoma -Oncology recommendations Staples cravings -Check iron levels -Dietitian evaluation Severe protein calorie malnutrition secondary to recent weight loss -Supplementation -Dietitian recommendations Transaminitis, mild -Follow CMP DVT prophylaxis: Lovenox Discussed with: Patient, oncology [employer] DES[employer] ENGINE[employer] Anticipated discharge: 4-[address]: Home A total of 45 minutes was spent on the care of this complex patient more than 50% of the time was spent in counseling and care coordination. Objective - Vital Signs Vital signs: Vital Signs Temp 98.1 F 12/28/20 13:00 Pulse 62 12/28/20 13:00 Resp 16 12/28/20 13:00 BP 114/72 12/28/20 13:00 Pulse Ox 97 12/28/20 13:00 Intake & Output 12/27/20 12/28/20 12/28/20 18:59 06:59 18:59 Weight 69.853 kg 69.853 kg 69.853 kg Other: Voiding Method Toilet # Voids 2 # Bowel Movements 2 - Labs CBC & Chem 7: 12/27/20 17:41 12/28/20 06:01 Labs: Abnormal Lab Results - Last 24 Hours (Table) 12/27/20 12/27/20 12/27/20 Range/Units 17:41 17:41 17:41 RDW 20.7 H (11.5-15.5) % Lymphocytes # (Manual) 0.90 L (1.0-4.8) k/uL Monocytes # (Manual) 1.62 H (0-1.0) k/uL PT 12.4 H (9.0-12.0) sec INR 1.2 H (<1.2) APTT 51.5 H (22.0-30.0) sec Sodium (137-145) mmol/L Carbon Dioxide (22-30) mmol/L BUN (9-20) mg/dL Creatinine (0.66-1.25) mg/dL BUN/Creatinine Ratio (12.00-20.00) Ratio Glucose (74-99) mg/dL Calcium (8.7-10.3) mg/dL Ferritin (22.0-322.0) ng/mL AST (17-59) U/L ALT (4-49) U/L Total Protein (6.2-8.2) g/dL Albumin (3.80-4.90) g/dL Vitamin B12 (200.0-944.0) pg/mL Urine Protein 2+ H (Negative) Urine Blood Small H (Negative) Urine RBC 47 H (0-5) /hpf Calcium Oxalate Crystal Few H (None) /hpf Urine Mucus Rare H (None) /hpf Stool Lactoferrin (NEGATIVE) 12/27/20 12/27/20 12/28/20 Range/Units 17:41 20:19 06:01 RDW (11.5-15.5) % Lymphocytes # (Manual) (1.0-4.8) k/uL Monocytes # (Manual) (0-1.0) k/uL PT (9.0-12.0) sec INR (<1.2) APTT (22.0-30.0) sec Sodium 129 L 132 L (137-145) mmol/L Carbon Dioxide 16 L (22-30) mmol/L BUN 31 H (9-20) mg/dL Creatinine 1.29 H (0.66-1.25) mg/dL BUN/Creatinine Ratio 22.73 H (12.00-20.00) Ratio Glucose 123 H (74-99) mg/dL Calcium 8.5 L (8.7-10.3) mg/dL Ferritin (22.0-322.0) ng/mL AST 66 H 45 H (17-59) U/L ALT 59 H (4-49) U/L Total Protein 5.0 L (6.2-8.2) g/dL Albumin 3.40 L (3.80-4.90) g/dL Vitamin B12 (200.0-944.0) pg/mL Urine Protein (Negative) Urine Blood (Negative) Urine RBC (0-5) /hpf Calcium Oxalate Crystal (None) /hpf Urine Mucus (None) /hpf Stool Lactoferrin POSITIVE A (NEGATIVE) 12/28/20 Range/Units 06:01 RDW (11.5-15.5) % Lymphocytes # (Manual) (1.0-4.8) k/uL Monocytes # (Manual) (0-1.0) k/uL PT (9.0-12.0) sec INR (<1.2) APTT (22.0-30.0) sec Sodium (137-145) mmol/L Carbon Dioxide (22-30) mmol/L BUN (9-20) mg/dL Creatinine (0.66-1.25) mg/dL BUN/Creatinine Ratio (12.00-20.00) Ratio Glucose (74-99) mg/dL Calcium (8.7-10.3) mg/dL Ferritin 444.5 H (22.0-322.0) ng/mL AST (17-59) U/L ALT (4-49) U/L Total Protein (6.2-8.2) g/dL Albumin (3.80-4.90) g/dL Vitamin B12 1024.0 H (200.0-944.0) pg/mL Urine Protein (Negative) Urine Blood (Negative) Urine RBC (0-5) /hpf Calcium Oxalate Crystal (None) /hpf Urine Mucus (None) /hpf Stool Lactoferrin (NEGATIVE) Microbiology - Last 24 Hours (Table) 12/27/20 20:19 Stool Culture - Preliminary Stool
[2020-12-29] MEDS: SALT AND SODA MOUTHWASH 1,000 ML PO SCH ×5 (02:04→18:57)
[2020-12-29] MEDS: SODIUM CHLORIDE 0.9% 1,000 ML IV SCH (07:43)
[2020-12-29] MEDS: CHOLESTYRAMINE (WITH SUGAR) 4 GM PACKET PO SCH ×3 (08:44→18:56)
[2020-12-29] MEDS: ENOXAPARIN 40 MG/0.4 ML SYRINGE SQ SCH (08:44)
[2020-12-29] MEDS: HYDROCORTISONE 1% CREAM 30 GM TUBE TOPICAL SCH ×2 (08:44→20:52)
[2020-12-29] MEDS: PETROLATUM, WHITE OINT 50 GM TUBE TOPICAL SCH ×2 (08:45→20:52)
[2020-12-29 09:07] LABS: HGB 12.8 g/dL (13.0-17.0); MCH 29.6 pg (27.0-32.0); MCHC 33.7 g/dL (32.0-37.0); MCV 87.8 fL (80.0-97.0); Mean Platelet Volume 11.6 fL (9.5-12.2); Platelet Count 272 X 10*3/uL (140-440); RBC 4.33 X 10*6/uL (4.40-5.60); WBC 5.83 X 10*3/uL (4.50-10.00)
[2020-12-29 09:52] LABS: African American GFR (CKD) 93.7 (60.0-200.0); Albumin 3.3 g/dL (3.80-4.90); Albumin/Globulin Ratio 2.2 (1.60-3.17); Anion Gap 9.2 mmol/L (4.00-12.00); Calcium 8.5 mg/dL (8.7-10.3); Carbon Dioxide 20.8 mmol/L (21.6-31.8); Globulin 1.5 g/dL (1.6-3.3); Magnesium 1.6 mg/dL (1.5-2.4); Non-African American GFR(CKD) 80.9 (60.0-200.0); Potassium 3.7 mmol/L (3.5-5.5); Total Bilirubin 0.5 mg/dL (0.2-1.2); Total Protein 4.8 g/dL (6.2-8.2)
[2020-12-29] MEDS ORDERED: DIPHENOX-ATROP 2.5-0.025 MG 1 EACH TAB PO STA (11:07)
--- NOTE | 2020-12-29 11:07 | P.PN ---
Subjective Progress Note Date: 12/29/20 Principal diagnosis: Diarrhea Patient is a 60-year-old male for history of stage IV rectal adenocarcinoma status post cholecystectomy currently undergoing treatment with Vectibix and Xelox in addition to Xeloda, GERD, gastric ulcer, prostate disorder who presented to the emergency department at the direction of Dr. Andrade secondary to dehydration and intractable diarrhea. In the ER he underwent extensive evaluation. He was tachycardic on arrival with a pulse of 109. Initial l aboratory analysis showed sodium 129, BUN 31, creatinine 1.29, AST 66, and ALT 59. He is status post cycle #2 of his current regimen. This was dose reduced secondary to severe diarrhea during his initial treatment. He also started Xeloda early on 12/17 secondary to increasing diarrhea. He was admitted and started on IV fluids. Oncology was consulted. Initial C. diff was negative. Fecal lactoferrin was positive. Patient seen and examined at bedside. He continues to have high output in his ostomy, no abdominal pain, no nausea, no vomiting. Feeling better. General: Ill appearing, no distress, appears at stated age, cachectic with temporal and buccal fat pad wasting Derm: warm, dry Head: atraumatic, normocephalic, symmetric Eyes: EOMI, no lid lag, anicteric sclera Mouth: no lip lesion, mucous membranes dry Cardiovascular: S1S2 reg, no murmur, positive posterior tibial pulse bilateral, Lungs: CTA bilateral, no rhonchi, no rales , no accessory muscle use Abdominal: soft, nontender to palpation, no guarding, no appreciable organomegaly, ostomy with large stomal prolapse Ext: no gross muscle atrophy, no edema, no contractures Neuro: CN II-XI grossly intact, no focal neuro deficits Psych: Alert, oriented, appropriate affect Intractable diarrhea -Suspect related to chemotherapy -Oncology recommendations appreciated: cholestyramine, clear liquid diet -Fecal lactoferrin positive, await stool culture -Monitor output - cryptosporidium and gairdia negative Hypomagnesemia - replace and recheck Metastatic rectal adenocarcinoma -Oncology recommendations Severe protein calorie malnutrition secondary to recent weight loss -Supplementation -Dietitian recs Transaminitis, mild -Follow CMP Hyponatremia and acute kidney injury secondary to dehydration, resolved DVT prophylaxis: Lovenox Discussed with: Patient, nursing Anticipated discharge: 3-[address]: Home A total of 35 minutes was spent on the care of this complex patient more than 50% of the time was spent in counseling and care coordination. Objective - Vital Signs Vital signs: Vital Signs Temp 98.2 F 12/29/20 05:00 Pulse 68 12/29/20 05:00 Resp 18 12/29/20 05:00 BP 103/62 12/29/20 05:00 Pulse Ox 99 12/29/20 08:55 Intake & Output 12/28/20 12/29/20 12/29/20 18:59 06:59 18:59 Intake Total 1200 590 Balance 1200 590 Weight 69.853 kg Intake: Intake, IV Titration 1200 Amount Sodium Chloride 0.9% 1, 1200 000 ml @ 100 mls/hr IV . Q10H CHENG Rx#:[id number] Oral 590 Other: Voiding Method Toilet # Voids 2 3 # Bowel Movements 2 - Labs CBC & Chem 7: 12/29/20 05:12 12/29/20 05:12 Labs: Abnormal Lab Results - Last 24 Hours (Table) 12/28/20 12/29/20 12/29/20 Range/Units 06:01 05:12 05:12 RBC 4.33 L (4.40-5.60) X 10*6/uL Hgb 12.8 L (13.0-17.0) g/dL Hct 38.0 L (39.6-50.0) % RDW 22.0 H (11.5-14.5) % Carbon Dioxide 20.8 L (21.6-31.8) mmol/L Calcium 8.5 L (8.7-10.3) mg/dL Ferritin 444.5 H (22.0-322.0) ng/mL AST 37 H (14-35) U/L Total Protein 4.8 L (6.2-8.2) g/dL Albumin 3.30 L (3.80-4.90) g/dL Globulin 1.5 L (1.6-3.3) g/dL Vitamin B12 1024.0 H (200.0-944.0) pg/mL
--- NOTE | 2020-12-29 11:15 | P.PN ---
Subjective Progress Note Date: 12/29/20 Principal diagnosis: intractable diarrhea, dehydration In f/u pt reports diarrhea Q 2 hours. He is tolerating liquid diet, no fever, nausea, abd pain, facial EGFR rash is stable. No new c/o. Still feeling weak, states that he really isn't feeling much better. Objective - Vital Signs Vital signs: Vital Signs Temp 98.2 F 12/29/20 05:00 Pulse 68 12/29/20 05:00 Resp 18 12/29/20 05:00 BP 103/62 12/29/20 05:00 Pulse Ox 99 12/29/20 08:55 Intake & Output 12/28/20 12/29/20 12/29/20 18:59 06:59 18:59 Intake Total 1200 590 Balance 1200 590 Weight 69.853 kg Intake: Intake, IV Titration 1200 Amount Sodium Chloride 0.9% 1, 1200 000 ml @ 100 mls/hr IV . Q10H CHENG Rx#:[id number] Oral 590 Other: Voiding Method Toilet # Voids 2 3 1 # Bowel Movements 2 - Constitutional General appearance: Present: cooperative, no acute distress, thin - EENT Eyes: Present: anicteric sclerae, edentulous ENT: Present: hearing grossly normal, pharyngeal erythema - Respiratory Respiratory: bilateral: CTA - Cardiovascular Heart sounds: normal: S1, S2 - Peripheral edema leg Peripheral Edema: bilateral: None - Gastrointestinal Gastrointestinal Comment(s): herniated ostomy, yellow thick liquid in collection device General gastrointestinal: Present: soft - Integumentary Integumentary: Present: rash (grade 1) - Neurologic Neurologic: Present: CNII-XII intact - Musculoskeletal Musculoskeletal: Present: strength equal bilaterally - Psychiatric Psychiatric: Present: A&O x's 3, appropriate affect, intact judgment & insight - Labs CBC & Chem 7: 12/29/20 05:12 12/29/20 05:12 Labs: Abnormal Lab Results - Last 24 Hours (Table) 12/28/20 12/29/20 12/29/20 Range/Units 06:01 05:12 05:12 RBC 4.33 L (4.40-5.60) X 10*6/uL Hgb 12.8 L (13.0-17.0) g/dL Hct 38.0 L (39.6-50.0) % RDW 22.0 H (11.5-14.5) % Carbon Dioxide 20.8 L (21.6-31.8) mmol/L Calcium 8.5 L (8.7-10.3) mg/dL Ferritin 444.5 H (22.0-322.0) ng/mL AST 37 H (14-35) U/L Total Protein 4.8 L (6.2-8.2) g/dL Albumin 3.30 L (3.80-4.90) g/dL Globulin 1.5 L (1.6-3.3) g/dL Vitamin B12 1024.0 H (200.0-944.0) pg/mL Assessment and Plan (1) Diarrhea Narrative/Plan: Pt has had diarrhea while on xeloda, dose was reduced with cycle 2 but, diarrhea recurred rather quickly. He has now been off all treatment for 11 days. C-diff neg, stool culture negative. Questran started. Add lomotil today Stool Q 2 hours currently. Pt has recently consumed copious amounts of vit C-1 gallon of OJ and an entire bag of jannet oranges in the last week. Current Visit: Yes Status: Acute Priority: High Code(s): R19.7 - DIARRHEA, UNSPECIFIED SNOMED Code(s): 61538752 (2) Dehydration Narrative/Plan: Cont IV fluids, clear liquid diet-no advancement yet, encouraged oral intake as tolerated. Current Visit: Yes Status: Acute Priority: High Code(s): E86.0 - DEHYDRATION SNOMED Code(s): 95010442 (3) Rectal adenocarcinoma Narrative/Plan: Pt has not been tolerating most recent treatment of xeloda, oxalilplatin and vectibix. He s/p 2 cycles with delay in start of 2nd cycle, dose reduction and has been off treatment now for 11 days. He will need to be re-evaluated by Primary Onc prior to resuming treatment. Current Visit: Yes Status: Chronic Priority: Medium Code(s): C20 - MALIGNANT NEOPLASM OF RECTUM SNOMED Code(s): 954222010 (4) Drug rash Narrative/Plan: From EGFR tx, grade 1. Treat with aquaphor and hydrocortisone cream. Current Visit: Yes Status: Chronic Priority: Medium Code(s): L27.0 - GEN SKIN ERUPTION DUE TO DRUGS AND MEDS TAKEN INTERNALLY SNOMED Code(s): 43245914 Plan: Iron studies and B vitamin levels for the vit C cravings-no deficiency noted Cont Salt and soda Do not advance diet yet Doctor attests: I performed a history and physical examination of this patient, developed impression and plan of care, discussed with dictator. I agree with dictators note, documented as a scribe.
[2020-12-29] MEDS: MAGNESIUM SULFATE-D5W PMX 1 GM in DEXTROSE/WATER 1 100ML.BAG IVPB SCH ×3 (12:05→14:44)
[2020-12-29] MEDS: DEXTROSE 5%-0.45% NACL 1,000 ML IV SCH (16:17)
[2020-12-30] MEDS: DEXTROSE 5%-0.45% NACL 1,000 ML IV SCH ×2 (01:11→11:38)
[2020-12-30] MEDS: SALT AND SODA MOUTHWASH 1,000 ML PO SCH ×5 (01:11→20:36)
[2020-12-30] MEDS: CHOLESTYRAMINE (WITH SUGAR) 4 GM PACKET PO SCH ×3 (09:30→19:33)
[2020-12-30] MEDS: ENOXAPARIN 40 MG/0.4 ML SYRINGE SQ SCH (09:30)
[2020-12-30] MEDS: PETROLATUM, WHITE OINT 50 GM TUBE TOPICAL SCH ×2 (09:31→21:25)
[2020-12-30] MEDS: HYDROCORTISONE 1% CREAM 30 GM TUBE TOPICAL SCH ×2 (09:31→21:25)
[2020-12-30 12:10] LABS: Anisocytosis Moderate; HCT 39.2 % (39.0-53.0); MCH 29.2 pg (25.0-35.0); MCHC 32.3 g/dL (31.0-37.0); MCV 90.5 fL (80.0-100.0); Macrocytosis Slight; Mean Platelet Volume 9.9; Platelet Count 278 k/uL (150-450); RBC 4.33 m/uL (4.30-5.90); RDW 21.1 % (11.5-15.5)
[2020-12-30 12:11] LABS: HGB 12.7 gm/dL (13.0-17.5)
--- NOTE | 2020-12-30 12:13 | P.PN ---
Subjective Progress Note Date: 12/30/20 (delayed charting seen at 0800) Principal diagnosis: Diarrhea Patient is a 60-year-old male for history of stage IV rectal adenocarcinoma status post cholecystectomy currently undergoing treatment with Vectibix and Xelox in addition to Xeloda, GERD, gastric ulcer, prostate disorder who presented to the emergency department at the direction of Dr. Andrade secondary to dehydration and intractable diarrhea. In the ER he underwent extensive evaluation. He was tachycardic on arrival with a pulse of 109. Initial laboratory analysis showed sodium 129, BUN 31, creatinine 1.29, AST 66, and ALT 59. He is status post cycle #2 of his current regimen. This was dose reduced secondary to severe diarrhea during his initial treatment. He also started Xeloda early on 12/17 secondary to increasing diarrhea. He was admitted and started on IV fluids. Oncology was consulted. Initial C. diff was negative. Fecal lactoferrin was positive. Giardia and cryptosporidium were negative. He continued to have high output. He was started on cholestyramine. Patient seen and examined at bedside. He is continuing to have high output through his ostomy, he thinks he is not be able to go to and a half hours without having to empty his back however everything is still very liquidy. He is tolerating his clear liquid diet and is free of abdominal pain. He denies any chest pain or shortness of breath. Overall he is feeling improved. He wishes he could eat more solid foods. General: Ill appearing, no distress, appears at stated age, cachectic with temporal and buccal fat pad wasting Derm: warm, dry Head: atraumatic, normocephalic, symmetric Eyes: EOMI, no lid lag, anicteric sclera Mouth: no lip lesion, mucous membranes dry Cardiovascular: S1S2 reg, no murmur, positive posterior tibial pulse bilateral, Lungs: CTA bilateral, no rhonchi, no rales , no accessory muscle use Abdominal: soft, nontender to palpation, no guarding, no appreciable organomegaly, ostomy with large stomal prolapse Ext: no gross muscle atrophy, no edema, no contractures Neuro: CN II-XI grossly intact, no focal neuro deficits Psych: Alert, oriented, appropriate affect Intractable diarrhea -Suspect related to chemotherapy -Oncology recommendations appreciated: cholestyramine, clear liquid diet, 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 for secretory diarrhea -Fecal lactoferrin positive, await stool culture -Monitor output -Cryptosporidium and gairdia negative - nurse to give dose of lomitil Hypomagnesemia -Replace and recheck Metastatic rectal adenocarcinoma -Oncology recommendations Severe protein calorie malnutrition secondary to recent weight loss -Supplementation -Dietitian recs Transaminitis, mild -Follow CMP Hyponatremia and acute kidney injury secondary to dehydration, resolved DVT prophylaxis: Lovenox Discussed with: Patient, nursing Anticipated discharge: 3-[address]: Home A total of 35 minutes was spent on the care of this complex patient more than 50% of the time was spent in counseling and care coordination. Objective - Vital Signs Vital signs: Vital Signs Temp 98.1 F 12/30/20 09:16 Pulse 64 12/30/20 09:26 Resp 17 12/30/20 09:16 BP 102/64 12/30/20 09:26 Pulse Ox 98 12/30/20 09:16 Intake & Output 12/29/20 12/30/20 12/30/20 18:59 06:59 18:59 Intake Total 1400 1200 Balance 1400 1200 Intake: Intake, IV Titration 1400 1200 Amount Dextrose 5%-0.45% NaCl 1, 100 1200 000 ml @ 100 mls/hr IV . Q10H [facility] Rx#:[id number] Magnesium Sulfate-D5w Pmx 300 1 gm In Dextrose/Water 1 100ml.bag @ 100 mls/hr IVPB Q1H [facility] Rx#: [id number] Sodium Chloride 0.9% 1, 1000 000 ml @ 100 mls/hr IV . Q10H [facility] Rx#:[id number] Other: Voiding Method Toilet Toilet Toilet # Voids 1 - Labs CBC & Chem 7: 12/29/20 05:12 12/29/20 05:12
[2020-12-30 12:17] LABS: African American GFR (CKD) >90 (>60 ml/min/1.73 sqM); Anion Gap 7 mmol/L; Blood Urea Nitrogen 8 mg/dL (9-20); Calcium 7.9 mg/dL (8.4-10.2); Carbon Dioxide 22 mmol/L (22-30); Chloride 100 mmol/L (98-107); Glucose 75 mg/dL (74-99); Magnesium 1.7 mg/dL (1.6-2.3); Non-African American GFR(CKD) >90 (>60 ml/min/1.73 sqM); Sodium 129 mmol/L (137-145)
[2020-12-30 12:23] LABS: Potassium 2.7 mmol/L (3.5-5.1)
[2020-12-30] MEDS ORDERED: SODIUM CHLORIDE 0.9% 1,000 ML IV SCH (13:15)
[2020-12-30] MEDS: MAGNESIUM SULFATE-D5W PMX 1 GM in DEXTROSE/WATER 1 100ML.BAG IVPB SCH ×2 (13:24→23:31)
[2020-12-30] MEDS: DIPHENOX-ATROP 2.5-0.025 MG 1 EACH TAB PO PRN (14:26)
[2020-12-30] MEDS: POTASSIUM CHLORIDE 20 MEQ in WATER FOR INJECTION 1 100ML.BAG IVPB SCH ×4 (14:26→21:10)
--- NOTE | 2020-12-30 15:17 | P.PN ---
Subjective Progress Note Date: 12/30/20 The patient states that he feels reasonably well subjectively. However ostomy output continues to be quite copious and watery. No fever/chills/nausea/vomiting. He denies any significant mouth sores. Other than the persistent diarrhea, he is not having other issues with tolerating his diet. Objective - Vital Signs Vital signs: Vital Signs Temp 98.2 F 12/30/20 14:29 Pulse 71 12/30/20 14:29 Resp 17 12/30/20 14:29 BP 105/64 12/30/20 14:29 Pulse Ox 99 12/30/20 14:29 Intake & Output 12/29/20 12/30/20 12/30/20 18:59 06:59 18:59 Intake Total 1400 1200 Balance 1400 1200 Weight 69.853 kg Intake: Intake, IV Titration 1400 1200 Amount Dextrose 5%-0.45% NaCl 1, 100 1200 000 ml @ 100 mls/hr IV . Q10H [facility] Rx#:[id number] Magnesium Sulfate-D5w Pmx 300 1 gm In Dextrose/Water 1 100ml.bag @ 100 mls/hr IVPB Q1H [facility] Rx#: [id number] Sodium Chloride 0.9% 1, 1000 000 ml @ 100 mls/hr IV . Q10H [facility] Rx#:[id number] Other: Voiding Method Toilet Toilet Toilet # Voids 1 - Constitutional General appearance: Present: no acute distress - EENT Eyes: Present: EOMI ENT: Present: hearing grossly normal, normal oropharynx - Respiratory Respiratory: bilateral: CTA - Cardiovascular Rhythm: regular Heart sounds: normal: S1, S2 - Gastrointestinal Gastrointestinal Comment(s): Ostomy right lower quadrant, with liquid greenish stool. Ostomy prolapse in bag, chronic General gastrointestinal: Present: normal bowel sounds, soft - Integumentary Integumentary: Present: normal - Neurologic Neurologic: Present: CNII-XII intact - Musculoskeletal Musculoskeletal: Present: generalized weakness, strength equal bilaterally - Psychiatric Psychiatric: Present: A&O x's 3, appropriate affect - Labs CBC & Chem 7: 12/30/20 10:45 12/30/20 10:45 Labs: Abnormal Lab Results - Last 24 Hours (Table) 12/30/20 12/30/20 Range/Units 10:45 10:45 Hgb 12.7 L D (13.0-17.5) gm/dL RDW 21.1 H (11.5-15.5) % Sodium 129 L (137-145) mmol/L Potassium 2.7 L* (3.5-5.1) mmol/L BUN 8 L (9-20) mg/dL Calcium 7.9 L (8.4-10.2) mg/dL Assessment and Plan (1) Diarrhea Narrative/Plan: This continues to be fairly intractable, despite cholestyramine and Lomotil. Stool studies were negative for evidence of infection. Lactoferrin was positive, which is consistent with most likely chemotherapy-induced enteritis/colitis in the setting. - Case discussed with the admitting service. At this point it would be reasonable to add subcutaneous octreotide to his antidiarrheal regimen. - More aggressive bowel rest. Patient will be nothing by mouth except for meds and ice chips. Change IV fluids to D5 0.9. If diarrhea does not improve in the next 1-2 days, continue nothing by mouth and start TPN. In that situation we can also adjust the dose of his octreotide upwards. Current Visit: Yes Status: Acute Priority: High Code(s): R19.7 - DIARRHEA, UNSPECIFIED SNOMED Code(s): 07957752 (2) Rectal adenocarcinoma Narrative/Plan: Treatment will remain on hold until acute condition resolves in a satisfactory manner. Current Visit: Yes Status: Chronic Priority: Medium Code(s): C20 - MALIGNANT NEOPLASM OF RECTUM SNOMED Code(s): 326649697 Plan: Replace potassium. Continue to monitor electrolytes
[2020-12-30] MEDS: D5-0.9% NACL WITH KCL 20 MEQ/L 1,000 ML IV SCH (17:33)
[2020-12-30] MEDS: OCTREOTIDE 100 MCG/ML INJ SQ SCH (21:33)
[2020-12-31] MEDS: SALT AND SODA MOUTHWASH 1,000 ML PO SCH ×6 (00:40→23:42)
[2020-12-31] MEDS: D5-0.9% NACL WITH KCL 20 MEQ/L 1,000 ML IV SCH ×2 (04:36→15:53)
[2020-12-31] MEDS: OCTREOTIDE 100 MCG/ML INJ SQ SCH ×2 (08:19→21:14)
[2020-12-31] MEDS: ENOXAPARIN 40 MG/0.4 ML SYRINGE SQ SCH (08:19)
[2020-12-31] MEDS: DIPHENOX-ATROP 2.5-0.025 MG 1 EACH TAB PO PRN ×2 (08:19→16:33)
[2020-12-31] MEDS: PETROLATUM, WHITE OINT 50 GM TUBE TOPICAL SCH ×2 (10:44→19:59)
[2020-12-31] MEDS: HYDROCORTISONE 1% CREAM 30 GM TUBE TOPICAL SCH ×2 (10:44→19:59)
--- NOTE | 2020-12-31 10:50 | P.PN ---
Subjective Progress Note Date: 12/31/20 (delayed charting seen at 0930) Principal diagnosis: Diarrhea Patient is a 60-year-old male for history of stage IV rectal adenocarcinoma status post cholecystectomy currently undergoing treatment with Vectibix and Xelox in addition to Xeloda, GERD, gastric ulcer, prostate disorder who presented to the emergency department at the direction of Dr. Andrade secondary to dehydration and intractable diarrhea. In the ER he underwent extensive evaluation. He was tachycardic on arrival with a pulse of 109. Initial laboratory analysis showed sodium 129, BUN 31, creatinine 1.29, AST 66, and ALT 59. He is status post cycle #2 of his current regimen. This was dose reduced secondary to severe diarrhea during his initial treatment. He also started Xeloda early on 12/17 secondary to increasing diarrhea. He was admitted and started on IV fluids. Oncology was consulted. Initial C. diff was negative. Fecal lactoferrin was positive. Giardia and cryptosporidium were negative. Stoo l culture was negative. He continued to have high output. He was started on cholestyramine which did little to improve his symptoms, and he was started on octreotide on 12/30. Patient seen and examined at bedside. He denies nausea, or belly pain, he continues to have increased ostomy output, it did slow down for a few hours after his first dose of octreotide and then increased again, He is working out in his room and feeling much better than at admission. General: non toxic, no distress, appears at stated age, cachectic with temporal and buccal fat pad wasting Derm: warm, dry Head: atraumatic, normocephalic, symmetric Eyes: EOMI, no lid lag, anicteric sclera Mouth: no lip lesion, mucous membranes moist Cardiovascular: S1S2 reg, no murmur, positive posterior tibial pulse bilateral, Lungs: CTA bilateral, no rhonchi, no rales , no accessory muscle use Abdominal: soft, nontender to palpation, no guarding, no appreciable organomegaly, ostomy with large stomal prolapse Ext: no gross muscle atrophy, no edema, no contractures Neuro: CN II-XI grossly intact, no focal neuro deficits Psych: Alert, oriented, appropriate affect Intractable diarrhea -Suspect related to chemotherapy -Oncology recommendations appreciated: cholestyramine, NPO - Octreotide - if not improvement in AM then consider TPN -Fecal lactoferrin positive, stool culture negative -Monitor output -Cryptosporidium and gairdia negative - nurse to give dose of lomitil Hypomagnesemia, hypokalemia - replaced on 12/30 awaiting repeat lab results and will continue to replace as indicated. Metastatic rectal adenocarcinoma -Oncology recommendations Severe protein calorie malnutrition secondary to recent weight loss -Supplementation -Dietitian recs Transaminitis, mild -Follow CMP Hyponatremia and acute kidney injury secondary to dehydration, resolved DVT prophylaxis: Lovenox Discussed with: Patient, nursing Anticipated discharge: 2-[address]: Home A total of 35 minutes was spent on the care of this complex patient more than 50% of the time was spent in counseling and care coordination. Objective - Vital Signs Vital signs: Vital Signs Temp 97.8 F 12/31/20 04:49 Pulse 60 12/31/20 04:49 Resp 16 12/31/20 04:49 BP 100/63 12/31/20 04:49 Pulse Ox 98 12/31/20 04:49 Intake & Output 12/30/20 12/31/20 12/31/20 18:59 06:59 18:59 Intake Total 1500 Output Total 1 1 Balance 1499 -1 Weight 69.853 kg Intake: Intake, IV Titration 1500 Amount D5-0.9% NaCl with KCl 20 1200 Meq/l 1,000 ml @ 100 mls/ hr IV .Q10H [facility] Rx#: [id number] Magnesium Sulfate-D5w Pmx 100 1 gm In Dextrose/Water 1 100ml.bag @ 100 mls/hr IVPB Q1H [facility] Rx#: [id number] Potassium Chloride 20 meq 200 In Water For Injection 1 100ml.bag @ 50 mls/hr IVPB Q2HR [facility] Rx#: [id number] Output: Stool 1 1 Other: Voiding Method Toilet Toilet Toilet # Voids 4 2 # Bowel Movements 2 - Labs CBC & Chem 7: 12/30/20 10:45 12/31/20 01:32 Labs: Abnormal Lab Results - Last 24 Hours (Table) 12/30/20 12/30/20 Range/Units 10:45 10:45 Hgb 12.7 L D (13.0-17.5) gm/dL RDW 21.1 H (11.5-15.5) % Sodium 129 L (137-145) mmol/L Potassium 2.7 L* (3.5-5.1) mmol/L BUN 8 L (9-20) mg/dL Calcium 7.9 L (8.4-10.2) mg/dL Microbiology - Last 24 Hours (Table) 12/27/20 20:19 Stool Culture - Final Stool
[2020-12-31] MEDS: CHOLESTYRAMINE (WITH SUGAR) 4 GM PACKET PO SCH ×3 (10:53→19:56)
[2020-12-31 12:05] LABS: African American GFR (CKD) 106.5 (60.0-200.0); Albumin/Globulin Ratio 1.88 (1.60-3.17); Anion Gap 4.8 mmol/L (4.00-12.00); BUN/Creat Ratio 5.56 Ratio (12.00-20.00); Carbon Dioxide 24.2 mmol/L (21.6-31.8); Globulin 1.6 g/dL (1.6-3.3); Magnesium 1.9 mg/dL (1.5-2.4); Non-African American GFR(CKD) 91.9 (60.0-200.0); Potassium 4.5 mmol/L (3.5-5.5); Total Bilirubin 0.4 mg/dL (0.3-1.2); Total Protein 4.6 g/dL (6.2-8.2)
--- NOTE | 2020-12-31 13:22 | P.PN ---
Subjective Progress Note Date: 12/31/20 Principal diagnosis: Intractable diarrhea due to chemotherapy Continues to have diarrhea but improved now. Objective - Vital Signs Vital signs: Vital Signs Temp 97.8 F 12/31/20 04:49 Pulse 60 12/31/20 04:49 Resp 16 12/31/20 04:49 BP 100/63 12/31/20 04:49 Pulse Ox 98 12/31/20 04:49 Intake & Output 12/30/20 12/31/20 12/31/20 18:59 06:59 18:59 Intake Total 1500 Output Total 1 1 Balance 1499 -1 Weight 69.853 kg Intake: Intake, IV Titration 1500 Amount D5-0.9% NaCl with KCl 20 1200 Meq/l 1,000 ml @ 100 mls/ hr IV .Q10H [facility] Rx#: [id number] Magnesium Sulfate-D5w Pmx 100 1 gm In Dextrose/Water 1 100ml.bag @ 100 mls/hr IVPB Q1H [facility] Rx#: [id number] Potassium Chloride 20 meq 200 In Water For Injection 1 100ml.bag @ 50 mls/hr IVPB Q2HR [facility] Rx#: [id number] Output: Stool 1 1 Other: Voiding Method Toilet Toilet Toilet # Voids 4 2 # Bowel Movements 2 - Exam Gen: No acute distress. HEENT: Mucosa moist Neck: Supple Lungs: No respiratory distress Heart: Regular rate Abd: Soft MSK: appropriate strength in all 4 extremities Neuro: Alert and oriented x3 Psych: Appropriate affect - Labs CBC & Chem 7: 12/30/20 10:45 12/31/20 07:14 Labs: Abnormal Lab Results - Last 24 Hours (Table) 12/30/20 12/30/20 Range/Units 10:45 10:45 Hgb 12.7 L D (13.0-17.5) gm/dL RDW 21.1 H (11.5-15.5) % Sodium 129 L (137-145) mmol/L Potassium 2.7 L* (3.5-5.1) mmol/L BUN 8 L (9-20) mg/dL Calcium 7.9 L (8.4-10.2) mg/dL Microbiology - Last 24 Hours (Table) 12/27/20 20:19 Stool Culture - Final Stool Assessment and Plan Assessment: 1. 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 Rectal cancer 3. Dehydration due to diarrhea 4. Electrolyte derangement due to diarrhea 5. Malnutrition due to malignancy and chemotherapy Plan: Mr. Garrison is a very pleasant 78 yo male with rectal cancer, here for intractable diarrhea. Chemotherapy, Xelox, on hold for now, until diarrhea resolves. Continue cholestyramine and lomotil. Octreotide started recently, and seems to be responding to this. Continue to monitor on current regimen for now. If his diarrhea continues to be improving, could consider clear liquid diet over next couple days. Avoid red dye in food to limit confusion of possible GIB. Otherwise, if diarrhea is not improving, continue bowel rest and NPO and continue to titrate octreotide. If continues to struggle with this may need TPN over the next couple days. Continue hydration and electrolyte management. Discussed with pt and nursing staff.
[2021-01-01] MEDS: D5-0.9% NACL WITH KCL 20 MEQ/L 1,000 ML IV SCH ×3 (02:02→23:36)
[2021-01-01] MEDS: OCTREOTIDE 100 MCG/ML INJ SQ SCH ×3 (05:40→22:04)
[2021-01-01] MEDS: SALT AND SODA MOUTHWASH 1,000 ML PO SCH ×4 (05:42→22:04)
[2021-01-01] MEDS: DIPHENOX-ATROP 2.5-0.025 MG 1 EACH TAB PO PRN ×2 (07:01→13:20)
[2021-01-01] MEDS: PETROLATUM, WHITE OINT 50 GM TUBE TOPICAL SCH ×2 (08:56→22:05)
[2021-01-01] MEDS: CHOLESTYRAMINE (WITH SUGAR) 4 GM PACKET PO SCH ×3 (08:56→22:04)
[2021-01-01] MEDS: ENOXAPARIN 40 MG/0.4 ML SYRINGE SQ SCH (08:56)
[2021-01-01] MEDS: HYDROCORTISONE 1% CREAM 30 GM TUBE TOPICAL SCH ×2 (08:57→22:05)
[2021-01-01 09:16] LABS: HCT 40.5 % (39.6-50.0); HGB 13.3 g/dL (13.0-17.0); MCH 29.4 pg (27.0-32.0); MCHC 32.8 g/dL (32.0-37.0); MCV 89.4 fL (80.0-97.0); Mean Platelet Volume 11.4 fL (9.5-12.2); Platelet Count 318 X 10*3/uL (140-440); RBC 4.53 X 10*6/uL (4.40-5.60); RDW 22.9 % (11.5-14.5); WBC 4.62 X 10*3/uL (4.50-10.00)
[2021-01-01 09:54] LABS: ALT 35 U/L (10-49); AST 46 U/L (14-35); African American GFR (CKD) 111.7 (60.0-200.0); Albumin/Globulin Ratio 2.06 (1.60-3.17); Alkaline Phosphatase 78 U/L (41-126); Blood Urea Nitrogen <5.0 mg/dL (9.0-27.0); Calcium 8.5 mg/dL (8.7-10.3); Carbon Dioxide 26.7 mmol/L (21.6-31.8); Chloride 108 mmol/L (96-109); Globulin 1.6 g/dL (1.6-3.3); Glucose 117 mg/dL (70-110); Magnesium 1.6 mg/dL (1.5-2.4); Non-African American GFR(CKD) 96.4 (60.0-200.0); Phosphorus 2.7 mg/dL (2.4-5.1); Potassium 3.9 mmol/L (3.5-5.5); Sodium 140 mmol/L (135-145); Total Bilirubin 0.4 mg/dL (0.2-1.2); Total Protein 4.9 g/dL (6.2-8.2)
--- NOTE | 2021-01-01 10:42 | P.PN ---
Subjective Progress Note Date: 01/01/21 Principal diagnosis: Diarrhea Patient is a 60-year-old male for history of stage IV rectal adenocarcinoma status post cholecystectomy currently undergoing treatment with Vectibix and Xelox in addition to Xeloda, GERD, gastric ulcer, prostate disorder who presented to the emergency department at the direction of Dr. Andrade secondary to dehydration and intractable diarrhea. In the ER he underwent extensive evaluation. He was tachycardic on arrival with a pulse of 109. Initial l aboratory analysis showed sodium 129, BUN 31, creatinine 1.29, AST 66, and ALT 59. He is status post cycle #2 of his current regimen. This was dose reduced secondary to severe diarrhea during his initial treatment. He also started Xeloda early on 12/17 secondary to increasing diarrhea. He was admitted and started on IV fluids. Oncology was consulted. Initial C. diff was negative. Fecal lactoferrin was positive. Giardia and cryptosporidium were negative. Stool culture was negative. He continued to have high output. He was started on cholestyramine which did little to improve his symptoms, and he was started on octreotide on 12/30. He continued to have high output. Patient seen and examined at bedside. He output has still required him to empty his ostomy every 2-3 hours overnight. He denies nausea, or belly pain. Agreeable to TPN. General: non toxic, no distress, appears at stated age, cachectic with temporal and buccal fat pad wasting Derm: warm, dry Head: atraumatic, normocephalic, symmetric Eyes: EOMI, no lid lag, anicteric sclera Mouth: no lip lesion, mucous membranes moist Cardiovascular: S1S2 reg, no murmur, positive posterior tibial pulse bilateral, Lungs: CTA bilateral, no rhonchi, no rales , no accessory muscle use Abdominal: soft, nontender to palpation, no guarding, no appreciable organomegaly Ext: no gross muscle atrophy, no edema, no contractures Neuro: CN II-XI grossly intact, no focal neuro deficits Psych: Alert, oriented, appropriate affect Intractable diarrhea -Suspect related to chemotherapy -Oncology recommendations appreciated: cholestyramine, NPO - Octreotide increased to 100 TID on the morning of 01/01. TPN orders placed 01/01 (can be given through port) -Fecal lactoferrin positive, stool culture negative -Monitor output -Cryptosporidium and gairdia negative -Change lomitil to scheduled. Hypomagnesemia - replace and check in AM Metastatic rectal adenocarcinoma -Oncology recommendations Severe protein calorie malnutrition secondary to recent weight loss -Supplementation -Dietitian recs Transaminitis, mild -Follow CMP Hypokalemia, resolved Hyponatremia and acute kidney injury secondary to dehydration, resolved DVT prophylaxis: Lovenox Discussed with: Patient, nursing Anticipated discharge: 2-[address]: Home A total of 35 minutes was spent on the care of this complex patient more than 50% of the time was spent in counseling and care coordination. Objective - Vital Signs Vital signs: Vital Signs Temp 98.2 F 01/01/21 04:34 Pulse 66 01/01/21 04:34 Resp 16 01/01/21 04:34 BP 110/67 01/01/21 04:34 Pulse Ox 98 01/01/21 04:34 Intake & Output 12/31/20 01/01/21 01/01/21 18:59 06:59 18:59 Intake Total 1200 Output Total 1 1 Balance -1 1200 -1 Intake: Intake, IV Titration 1200 Amount D5-0.9% NaCl with KCl 20 1200 Meq/l 1,000 ml @ 100 mls/ hr IV .Q10H [facility] Rx#: [id number] Output: Stool 1 1 Other: Voiding Method Toilet Toilet Toilet # Voids 2 5 # Bowel Movements 5 - Labs CBC & Chem 7: 01/01/21 05:41 01/01/21 05:41 Labs: Abnormal Lab Results - Last 24 Hours (Table) 12/31/20 01/01/21 01/01/21 Range/Units 07:14 05:41 05:41 RDW 22.9 H (11.5-14.5) % BUN 5.0 L <5.0 L (9.0-27.0) mg/dL BUN/Creatinine Ratio 5.56 L (12.00-20.00) Ratio Glucose 127 H 117 H (70-110) mg/dL Calcium 8.0 L 8.5 L (8.7-10.3) mg/dL AST 36 H 46 H (14-35) U/L Total Protein 4.6 L 4.9 L (6.2-8.2) g/dL Albumin 3.00 L 3.30 L (3.80-4.90) g/dL
[2021-01-01] MEDS: MAGNESIUM SULFATE-D5W PMX 1 GM in DEXTROSE/WATER 1 100ML.BAG IVPB SCH ×2 (10:55→12:21)
[2021-01-02] MEDS: SALT AND SODA MOUTHWASH 1,000 ML PO SCH ×6 (01:06→23:52)
[2021-01-02] MEDS: D5-0.9% NACL WITH KCL 20 MEQ/L 1,000 ML IV SCH ×2 (05:02→09:09)
[2021-01-02] MEDS: OCTREOTIDE 100 MCG/ML INJ SQ SCH ×3 (05:05→22:11)
[2021-01-02] MEDS: HYDROCORTISONE 1% CREAM 30 GM TUBE TOPICAL SCH ×2 (09:07→22:12)
[2021-01-02] MEDS: CHOLESTYRAMINE (WITH SUGAR) 4 GM PACKET PO SCH ×3 (09:07→17:38)
[2021-01-02] MEDS: ENOXAPARIN 40 MG/0.4 ML SYRINGE SQ SCH (09:07)
[2021-01-02] MEDS: PETROLATUM, WHITE OINT 50 GM TUBE TOPICAL SCH ×2 (09:07→22:12)
[2021-01-02 09:18] LABS: HCT 39.1 % (39.6-50.0); HGB 12.5 g/dL (13.0-17.0); MCH 28.9 pg (27.0-32.0); MCV 90.5 fL (80.0-97.0); Mean Platelet Volume 11.2 fL (9.5-12.2); Platelet Count 301 X 10*3/uL (140-440); RBC 4.32 X 10*6/uL (4.40-5.60); RDW 22.8 % (11.5-14.5); WBC 5.14 X 10*3/uL (4.50-10.00)
[2021-01-02 09:30] LABS: African American GFR (CKD) 111.7 (60.0-200.0); Albumin 3.1 g/dL (3.80-4.90); Albumin/Globulin Ratio 1.72 (1.60-3.17); Anion Gap 5.3 mmol/L (4.00-12.00); BUN/Creat Ratio 7.5 Ratio (12.00-20.00); Calcium 8.4 mg/dL (8.7-10.3); Carbon Dioxide 26.7 mmol/L (21.6-31.8); Globulin 1.8 g/dL (1.6-3.3); Magnesium 1.7 mg/dL (1.5-2.4); Non-African American GFR(CKD) 96.4 (60.0-200.0); Phosphorus 3.1 mg/dL (2.4-5.1); Potassium 4.3 mmol/L (3.5-5.5); Total Bilirubin 0.4 mg/dL (0.2-1.2); Total Protein 4.9 g/dL (6.2-8.2)
[2021-01-02] MEDS: MAGNESIUM SULFATE-D5W PMX 1 GM in DEXTROSE/WATER 1 100ML.BAG IVPB SCH ×2 (09:59→11:21)
--- NOTE | 2021-01-02 10:59 | P.PN ---
Subjective Progress Note Date: 01/02/21 Hospital course: Patient is a 60-year-old male with history of stage IV rectal adenocarcinoma status post cholecystectomy. He recently completed his second round of chemotherapy treatment with Vectibix and Xelox in addition to Xeloda. He pr esented to [facility] as instructed by his oncologist, Dr. Andrade secondary to dehydration resulting from intractable diarrhea. Patient was admitted under our services with consultation to oncology for continued medical management. Initial labs obtained and BMP revealing hypernatremia with sodium of 129, an AK I with BUN of 31, creatinine 1.29, and GFR of, and liver profile also revealing slight elevation with AST of 66 and ALT of 59. Stool specimen sent for anaysis revealing NEGATIVE results for C. diff, Giardia, cryptosporidium and stool cultures. Fecal lactoferrin was POSITIVE. Patient continues to have a high ileostomy output, changing ostomy bag every 2 hours with liquid green watery contents. Patient undergoing IV hydration and is currently on cholestyramine, octreotide, and Lomotil. He was made NPO to allow for bowel rest and started on TPN. Physical exam: Patient seen and fully evaluated at the bedside. He continues to have high output changing ileostomy bag with green watery liquid stool every 2 hours. Patient denies having any pain or complaints. Denies having a headache, lightheadedness, chest pain, palpitations, abdominal pain, nausea, back pain, or any other complaints or needs at this time. General: non toxic, no distress, appears at stated age Derm: warm, dry Head: atraumatic, normocephalic, symmetric Eyes: EOMI, no lid lag, anicteric sclera Mouth: no lip lesion, mucus membranes moist Cardiovascular: S1-S2 normal with regular rate and rhythm, soft murmur, positive posterior tibial pulses bilaterally, cap refill less than 2 seconds. Lungs: respirations even, regular, and unlabored on room air. Lungs clear to auscultation bilaterally with no adventitious sounds including wheezes, rhonchi, rales, or crackles. No accessory muscle usage. Abdominal: soft, nontender to palpation, no guarding, no appreciable organomegaly. Ileostomy right lower quadrant with moderate green liquid stool in bag. Ext: no gross muscle atrophy, no edema, no contractures Neuro: Patient is 15. Speech clear. Movement and sensation of upper and lower extremities intact. No focal neuro deficits noted. Psych: Alert, oriented, appropriate affect Plan of care: Intractable diarrhea -Likely secondary to chemotherapy -Oncology following and recommending pt to remain NPO until ileostomy output has decreased. -Continue Colace tyramine, octreotide, and Lomotil. -Patient was started on TPN while maintaining NPO status to allow for bowel rest. -Stool sample NEGATIVE for C. diff, Giardia, cryptosporidium and stool cultures -Fecal lactoferrin was POSITIVE. -Continue monitor daily ileostomy output Hypomagnesemia -Magnesium 1.7, ordered 2 g for replacement. -We wiill continue to monitor with repeat a.m. labs. Metastatic rectal abdominal -Management by oncology team, Dr. Andrade. Severe protein calorie malnutrition secondary to recent weight loss -Patient started on TPN -Dietitian/nutrition following Transaminitis, improving Hypokalemia, resolved Hyponatremia, resolved Acute kidney injury secondary to dehydration, resolved CODE STATUS: Full code DVT prophylaxis: Lovenox Discussed with: Patient and RN Anticipated discharge date: Pending clinical course Anticipated discharge place: Home A total of 35 minutes was spent on the care of this complex patient more than 50% of the time was spent in counseling and care coordination. Objective - Vital Signs Vital signs: Vital Signs Temp 97.9 F 01/02/21 04:57 Pulse 59 L 01/02/21 04:57 Resp 14 01/02/21 04:57 BP 102/63 01/02/21 04:57 Pulse Ox 99 01/02/21 04:57 Intake & Output 01/01/21 01/02/21 01/02/21 18:59 06:59 18:59 Intake Total 1550 Output Total 1 Balance -1 1550 Weight 69.853 kg Intake: Intake, IV Titration 1200 Amount D5-0.9% NaCl with KCl 20 1200 Meq/l 1,000 ml @ 100 mls/ hr IV .Q10H [facility] Rx#: [id number] Oral 350 Output: Stool 1 Other: Voiding Method Toilet # Voids 1 3 - Labs CBC & Chem 7: 01/02/21 05:57 01/02/21 05:57 Labs: Abnormal Lab Results - Last 24 Hours (Table) 01/01/21 01/01/21 Range/Units 05:41 05:41 RDW 22.9 H (11.5-14.5) % BUN <5.0 L (9.0-27.0) mg/dL Glucose 117 H (70-110) mg/dL Calcium 8.5 L (8.7-10.3) mg/dL AST 46 H (14-35) U/L Total Protein 4.9 L (6.2-8.2) g/dL Albumin 3.30 L (3.80-4.90) g/dL Microbiology - Last 24 Hours (Table) 12/27/20 20:19 Stool Culture - Final Stool
[2021-01-02] MEDS ORDERED: MAGNESIUM SULFATE-D5W PMX 1 GM in DEXTROSE/WATER 1 100ML.BAG IVPB SCH (11:00)
[2021-01-02] MEDS ORDERED: MVI, ADULT NO.4 WITH VIT K 10 ML, TRACE (CONC-1ML/DOSE) 1 ML in AMINO ACID 5%-D20W+LYTE... IV SCH ×3 (11:00)
[2021-01-02] MEDS: FAT EMULSION 20% 250 ML in EMPTY BAG 1 BAG IV SCH (13:39)
[2021-01-02] MEDS: SODIUM CHLORIDE 0.9% 1,000 ML IV SCH ×2 (15:22→22:11)
[2021-01-02] MEDS: DIPHENOX-ATROP 2.5-0.025 MG 1 EACH TAB PO SCH ×2 (17:39→23:53)
--- NOTE | 2021-01-02 23:32 | P.PN ---
Subjective Progress Note Date: 01/02/21 The patient continues to have significant watery diarrhea, Filling up his ostomy bag every 2-3 hours. He does not feel that has been a significant improvement so far. Symptomatically, otherwise, he definitely feels stronger. He denies any fever/chills/nausea/vomiting or abdominal pain. Objective - Vital Signs Vital signs: Vital Signs Temp 98.4 F 01/02/21 21:00 Pulse 61 01/02/21 21:00 Resp 18 01/02/21 21:00 BP 108/64 01/02/21 21:00 Pulse Ox 98 01/02/21 21:00 Intake & Output 01/02/21 01/02/21 01/03/21 06:59 18:59 06:59 Intake Total 1550 1200 Balance 1550 1200 Weight 69.853 kg Intake: Intake, IV Titration 1200 1200 Amount D5-0.9% NaCl with KCl 20 1200 1200 Meq/l 1,000 ml @ 100 mls/ hr IV .Q10H CHENG Rx#: [id number] Oral 350 Other: Voiding Method Toilet # Voids 3 1 1 - Constitutional General appearance: Present: no acute distress - EENT Eyes: Present: EOMI ENT: Present: hearing grossly normal, normal oropharynx - Respiratory Respiratory: bilateral: CTA - Cardiovascular Rhythm: regular Heart sounds: normal: S1, S2 - Gastrointestinal Gastrointestinal Comment(s): Right lower quadrant ostomy, with liquid greenish stool General gastrointestinal: Present: soft - Integumentary Integumentary: Present: normal - Neurologic Neurologic: Present: CNII-XII intact - Musculoskeletal Musculoskeletal: Present: generalized weakness - Psychiatric Psychiatric: Present: A&O x's 3, appropriate affect - Labs CBC & Chem 7: 01/02/21 05:57 01/02/21 05:57 Labs: Abnormal Lab Results - Last 24 Hours (Table) 01/02/21 01/02/21 Range/Units 05:57 05:57 RBC 4.32 L (4.40-5.60) X 10*6/uL Hgb 12.5 L (13.0-17.0) g/dL Hct 39.1 L (39.6-50.0) % RDW 22.8 H (11.5-14.5) % BUN 6.0 L (9.0-27.0) mg/dL BUN/Creatinine Ratio 7.50 L (12.00-20.00) Ratio Glucose 136 H (70-110) mg/dL Calcium 8.4 L (8.7-10.3) mg/dL AST 38 H (14-35) U/L Total Protein 4.9 L (6.2-8.2) g/dL Albumin 3.10 L (3.80-4.90) g/dL Microbiology - Last 24 Hours (Table) 12/27/20 20:19 Stool Culture - Final Stool Assessment and Plan (1) Diarrhea Narrative/Plan: This continues to be quite significant despite very aggressive antidiarrheal management, with octreotide at 100 mg subcutaneous fluid, Lomotil, and Questran. Patient is also essentially nothing by mouth, with very minor exceptions - Continue current aggressive management as above - Consult GI for endoscopic workup to rule out other causes. Infection workup has so far been negative. With chemotherapy-induced diarrhea, usually at least some improvement would be expected with the current time interval since his last chemotherapy, and other aggressive treatment measures. Current Visit: Yes Status: Acute Priority: High Code(s): R19.7 - DIARRHEA, UNSPECIFIED SNOMED Code(s): 59922853 (2) Rectal adenocarcinoma Narrative/Plan: Treatment plan is currently on hold, pending resolution of current acute complaints. Current Visit: Yes Status: Chronic Priority: Medium Code(s): C20 - MALIGNANT NEOPLASM OF RECTUM SNOMED Code(s): 736429776 (3) Malnutrition Narrative/Plan: Severe protein calorie malnutrition, due to decreased oral intake, and ongoing diarrhea. In addition the patient is currently nothing by mouth for diarrhea control. Case discussed with admitting service and the patient has been started on TPN. Current Visit: Yes Status: Acute Code(s): E46 - UNSPECIFIED PROTEIN-CALORIE MALNUTRITION SNOMED Code(s): 36920571
[2021-01-02 23:51] LABS: Glucose,Whole Blood 126 mg/dL (75-99)
[2021-01-03] MEDS: SALT AND SODA MOUTHWASH 1,000 ML PO SCH ×4 (05:36→21:36)
[2021-01-03] MEDS: OCTREOTIDE 100 MCG/ML INJ SQ SCH ×3 (05:36→21:37)
[2021-01-03] MEDS: DIPHENOX-ATROP 2.5-0.025 MG 1 EACH TAB PO SCH ×3 (05:36→17:42)
[2021-01-03 05:52] LABS: Glucose,Whole Blood 107 mg/dL (75-99)
[2021-01-03 07:35] LABS: Ionized Calcium 5.2 mg/dL (4.5-5.3)
[2021-01-03 07:47] LABS: African American GFR (CKD) >90 (>60 ml/min/1.73 sqM); Anion Gap 2 mmol/L; Blood Urea Nitrogen 7 mg/dL (9-20); Calcium 8.3 mg/dL (8.4-10.2); Carbon Dioxide 27 mmol/L (22-30); Chloride 105 mmol/L (98-107); Glucose 120 mg/dL (74-99); Magnesium 1.7 mg/dL (1.6-2.3); Non-African American GFR(CKD) >90 (>60 ml/min/1.73 sqM); Phosphorus 3.2 mg/dL (2.5-4.5); Potassium 4.6 mmol/L (3.5-5.1); Sodium 134 mmol/L (137-145)
[2021-01-03] MEDS: ENOXAPARIN 40 MG/0.4 ML SYRINGE SQ SCH (08:21)
[2021-01-03] MEDS: PETROLATUM, WHITE OINT 50 GM TUBE TOPICAL SCH ×2 (08:21→21:37)
[2021-01-03] MEDS: HYDROCORTISONE 1% CREAM 30 GM TUBE TOPICAL SCH ×2 (08:21→21:37)
[2021-01-03] MEDS: SODIUM CHLORIDE 0.9% 1,000 ML IV SCH ×2 (08:24→21:37)
--- NOTE | 2021-01-03 09:49 | P.PN ---
Subjective Progress Note Date: 01/03/21 Principal diagnosis: Diarrhea The patient is seen and examined sitting up in bed. He states no acute changes through the night. He still had 8 loose stools from yesterday morning till today. He denies any further formation in his stool. Stool is light brown, liquid in his ostomy bag. He denies any abdominal pain, nausea, or vomiting. Patient is on TPN. Objective - Vital Signs Vital signs: Vital Signs Temp 98.0 F 01/03/21 04:30 Pulse 57 L 01/03/21 04:30 Resp 18 01/03/21 04:30 BP 107/56 01/03/21 04:30 Pulse Ox 97 01/03/21 04:30 Intake & Output 01/02/21 01/03/21 01/03/21 18:59 06:59 18:59 Intake Total 1200 Output Total 1 Balance 1200 -1 Weight 69.853 kg Intake: Intake, IV Titration 1200 Amount D5-0.9% NaCl with KCl 20 1200 Meq/l 1,000 ml @ 100 mls/ hr IV .Q10H CHENG Rx#: [id number] Output: Stool 1 Other: Voiding Method Toilet Toilet Toilet # Voids 1 1 - Exam General appearance: The patient is alert, oriented, appears in no acute distress. HET: Head is normocephalic and atraumatic. Conjunctiva pink. Sclera anicteric. Neck: Supple without lymphadenopathy. Abdomen: Soft, nontender, nondistended with bowel sounds. No guarding or rigidity. Extremities: Normal skin color and turgor. No pedal edema Skin: No rashes, no jaundice Neurological: No focal deficits. Alert and oriented 3. - Labs CBC & Chem 7: 01/02/21 05:57 01/03/21 06:29 Labs: Abnormal Lab Results - Last 24 Hours (Table) 01/02/21 01/03/21 01/03/21 Range/Units 23:50 05:35 06:29 Sodium 134 L (137-145) mmol/L BUN 7 L (9-20) mg/dL Glucose 120 H (74-99) mg/dL POC Glucose (mg/dL) 126 H 107 H (75-99) mg/dL Calcium 8.3 L (8.4-10.2) mg/dL Microbiology - Last 24 Hours (Table) 12/27/20 20:19 Stool Culture - Final Stool Assessment and Plan (1) Diarrhea Narrative/Plan: 60-year-old male with a history of adenocarcinoma diagnosed in 2018. Recently started on chemotherapy approximately 5 weeks ago which was stopped 2 weeks ago for persistent diarrhea. Patient had reported having up to 10 watery stools a day and to empty his [place] pack every 2-3 hours. Denied any blood. Patient states he had a colonoscopy in August 2020 at [facility]. He's had a recent EGD in August 2020 as a follow-up for a large gastric and is an astomotic ulcer. Findings included a 1 cm ulcer just distal to the gastric jejunal anastomosis, multiple superficial small ulcers in the small bowel, in a short segment of Amin's esophagus. C. difficile cytotoxin negative. Patient was started on Questran, Lomotil, and Sandostatin. Diarrhea with improvement today, patient reported only emptying back 2 times today. Current Visit: Yes Status: Acute Priority: High Code(s): R19.7 - DIARRHEA, UNSPECIFIED SNOMED Code(s): 71831952 (2) Rectal adenocarcinoma Narrative/Plan: Oncology following patient Current Visit: Yes Status: Chronic Priority: Medium Code(s): C20 - MALIGNANT NEOPLASM OF RECTUM SNOMED Code(s): 153329800 Plan: 1. Supportive care 2. Continue Lomotil [id number], Questran, and Sandostatin 3. Continue nothing by mouth for bowel rest 4. Extensive Stool studies ordered 5. Will add Zofran [id number] 6. Continue medical management per primary team and hematology 7. Continue TPN Thank you for this consultation, we will continue to follow Dr. Jamison I agree with the dictator's note, documented as a scribe by Sabina Can.
[2021-01-03] MEDS: CHOLESTYRAMINE (WITH SUGAR) 4 GM PACKET PO SCH ×3 (10:01→17:42)
[2021-01-03 11:45] LABS: Glucose,Whole Blood 107 mg/dL (75-99)
[2021-01-03] MEDS: FAT EMULSION 20% 250 ML in EMPTY BAG 1 BAG IV SCH (13:29)
[2021-01-03] MEDS: 1: MVI, ADULT NO.4 WITH VIT K 10 ML, TRACE (CONC-1ML/DOSE) 1 ML in AMINO ACID 5%-D20W+LY IV SCH ×3 (13:30)
--- NOTE | 2021-01-03 14:07 | P.PN ---
Subjective Progress Note Date: 01/03/21 Hospital course: Patient is a 60-year-old male with history of stage IV rectal adenocarcinoma status post cholecystectomy. He recently completed his second round of chemotherapy treatment with Vectibix and Xelox in addition to Xeloda. He pr esented to [facility] as instructed by his oncologist, Dr. Andrade secondary to dehydration resulting from intractable diarrhea. Patient was admitted under our services with consultation to oncology for continued medical management. Initial labs obtained and BMP revealing hypernatremia with sodium of 129, an AK I with BUN of 31, creatinine 1.29, and GFR of, and liver profile also revealing slight elevation with AST of 66 and ALT of 59. Stool specimen sent for anaysis revealing NEGATIVE results for C. diff, Giardia, cryptosporidium and stool cultures. Fecal lactoferrin was POSITIVE. Patient continues to have a high ileostomy output, changing ostomy bag every 2 hours with liquid green watery contents. Patient undergoing IV hydration and is currently on cholestyramine, octreotide, and Lomotil. He was made NPO to allow for bowel rest and started on TPN. Physical exam: Patient seen and fully evaluated at the bedside. He continues to have high output but has slightly improved from yesterday as pt is now changing ileostomy bag with brown/green watery liquid stool every 3 hours. Patient continues to deny having any pain or complaints. Denies having a headache, lightheadedness, chest pain, palpitations, abdominal pain, nausea, back pain, or any other complaints or needs at this time. Labs: BMP revealing mild hyponatremia with sodium of 134 and continued hypomagnesemia with magnesium of 1.7. We will replace. General: non toxic, no distress, appears at stated age Derm: warm, dry Head: atraumatic, normocephalic, symmetric Eyes: EOMI, no lid lag, anicteric sclera Mouth: no lip lesion, mucus membranes moist Cardiovascular: S1-S2 normal with regular rate and rhythm, murmur present, positive posterior tibial pulses bilaterally, cap refill less than 2 seconds. Lungs: respirations even, regular, and unlabored on room air. Lungs clear to auscultation bilaterally with no adventitious sounds including wheezes, rhonchi, rales, or crackles. No accessory muscle usage. Abdominal: soft, nontender to palpation, no guarding, no appreciable organomegaly. Ileostomy right lower quadrant with moderate brown/green liquid stool in bag. Ext: no gross muscle atrophy, no edema, no contractures Neuro: Patient is 15. Speech clear. Movement and sensation of upper and lower extremities intact. No focal neuro deficits noted. Psych: Alert, oriented, appropriate affect Plan of care: Intractable diarrhea -Likely secondary to chemotherapy -Oncology following and recommending pt to remain NPO for bowel rest until ileostomy output has decreased. -Continue TPN -Continue Cholestyramine, octreotide, and Lomotil. -Stool sample NEGATIVE for C. diff, Giardia, cryptosporidium and stool cultures -Fecal lactoferrin was POSITIVE. -Continue monitor daily ileostomy output. Hypomagnesemia -Magnesium 1.7, ordered 2 g for replacement. -We wiill continue to monitor with repeat a.m. labs. Metastatic rectal abdominal -Management by oncology team, Dr. Andrade. Severe protein calorie malnutrition secondary to recent weight loss -Continue TPN while NPO. -Dietitian/nutrition following Transaminitis, improving Hypokalemia, resolved Hyponatremia, resolved Acute kidney injury secondary to dehydration, resolved CODE STATUS: Full code DVT prophylaxis: Lovenox Discussed with: Patient and RN Anticipated discharge date: Pending clinical course Anticipated discharge place: Home A total of 35 minutes was spent on the care of this complex patient more than 50% of the time was spent in counseling and care coordination. Objective - Vital Signs Vital signs: Vital Signs Temp 98.0 F 01/03/21 04:30 Pulse 57 L 01/03/21 04:30 Resp 18 01/03/21 04:30 BP 107/56 01/03/21 04:30 Pulse Ox 97 01/03/21 04:30 Intake & Output 01/02/21 01/03/21 01/03/21 18:59 06:59 18:59 Intake Total 1200 Output Total 1 Balance 1200 -1 Weight 69.853 kg Intake: Intake, IV Titration 1200 Amount D5-0.9% NaCl with KCl 20 1200 Meq/l 1,000 ml @ 100 mls/ hr IV .Q10H CHENG Rx#: [id number] Output: Stool 1 Other: Voiding Method Toilet Toilet Toilet # Voids 1 1 - Labs CBC & Chem 7: 01/02/21 05:57 01/03/21 06:29 Labs: Abnormal Lab Results - Last 24 Hours (Table) 01/02/21 01/03/21 01/03/21 Range/Units 23:50 05:35 06:29 Sodium 134 L (137-145) mmol/L BUN 7 L (9-20) mg/dL Glucose 120 H (74-99) mg/dL POC Glucose (mg/dL) 126 H 107 H (75-99) mg/dL Calcium 8.3 L (8.4-10.2) mg/dL Microbiology - Last 24 Hours (Table) 12/27/20 20:19 Stool Culture - Final Stool
[2021-01-03] MEDS: MAGNESIUM SULFATE-D5W PMX 1 GM in DEXTROSE/WATER 1 100ML.BAG IVPB SCH ×2 (14:43→16:23)
[2021-01-03] MEDS: ONDANSETRON ODT 4 MG TAB PO SCH (16:23)
[2021-01-03 16:57] LABS: Glucose,Whole Blood 113 mg/dL (75-99)
--- NOTE | 2021-01-03 20:06 | P.PN ---
Subjective Progress Note Date: 01/03/21 Principal diagnosis: NISH, Dehydration Still with increased ostomy output Objective - Vital Signs Vital signs: Vital Signs Temp 97.8 F 01/03/21 13:00 Pulse 56 L 01/03/21 13:00 Resp 17 01/03/21 13:00 BP 105/64 01/03/21 13:00 Pulse Ox 100 01/03/21 13:00 Intake & Output 01/02/21 01/03/21 01/03/21 18:59 06:59 18:59 Intake Total 1200 Output Total 1 Balance 1200 -1 Weight 69.853 kg Intake: Intake, IV Titration 1200 Amount D5-0.9% NaCl with KCl 20 1200 Meq/l 1,000 ml @ 100 mls/ hr IV .Q10H CHENG Rx#: [id number] Output: Stool 1 Other: Voiding Method Toilet Toilet Toilet # Voids 1 1 - Exam - Constitutional General appearance: Present: no acute distress - EENT Eyes: Present: EOMI ENT: Present: hearing grossly normal, normal oropharynx - Respiratory Respiratory: bilateral: CTA - Cardiovascular Rhythm: regular Heart sounds: normal: S1, S2 - Gastrointestinal Gastrointestinal Comment(s): Right lower quadrant ostomy, with liquid greenish stool General gastrointestinal: Present: soft - Integumentary Integumentary: Present: normal - Neurologic Neurologic: Present: CNII-XII intact - Musculoskeletal Musculoskeletal: Present: generalized weakness - Psychiatric Psychiatric: Present: A&O x's 3, appropriate affect - Labs CBC & Chem 7: 01/02/21 05:57 01/03/21 06:29 Labs: Abnormal Lab Results - Last 24 Hours (Table) 01/02/21 01/03/21 01/03/21 Range/Units 23:50 05:35 06:29 Sodium 134 L (137-145) mmol/L BUN 7 L (9-20) mg/dL Glucose 120 H (74-99) mg/dL POC Glucose (mg/dL) 126 H 107 H (75-99) mg/dL Calcium 8.3 L (8.4-10.2) mg/dL 01/03/21 Range/Units 11:41 Sodium (137-145) mmol/L BUN (9-20) mg/dL Glucose (74-99) mg/dL POC Glucose (mg/dL) 107 H (75-99) mg/dL Calcium (8.4-10.2) mg/dL Assessment and Plan Plan: Assessment and Plan Diarrhea This continues to be quite significant despite very aggressive antidiarrheal management, with octreotide at 100 mg subcutaneous fluid, Lomotil, and Questran. Patient is also essentially nothing by mouth, with very minor exceptions - Continue current aggressive management as above - TPN at this time for bowel rest - Budesomide to be considered - GI is following no mention of endoscopy planned at this time Rectal adenocarcinoma Treatment plan is currently on hold, pending resolution of current acute complaints. Malnutrition - Continue daily labs and TPN Severe protein calorie malnutrition, due to decreased oral intake, and ongoing diarrhea. In addition the patient is currently nothing by mouth for diarrhea control. Case discussed with admitting service and the patient has been started on TPN.
[2021-01-03] MEDS ORDERED: TAMSULOSIN 0.4 MG CAP.ER.24H PO SCH (21:00)
[2021-01-04] MEDS: ONDANSETRON ODT 4 MG TAB PO SCH ×3 (00:10→16:44)
[2021-01-04] MEDS: SALT AND SODA MOUTHWASH 1,000 ML PO SCH ×5 (00:10→20:57)
[2021-01-04] MEDS: DIPHENOX-ATROP 2.5-0.025 MG 1 EACH TAB PO SCH ×5 (00:10→23:52)
[2021-01-04 00:16] LABS: Glucose,Whole Blood 109 mg/dL (75-99)
[2021-01-04] MEDS: 1: MVI, ADULT NO.4 WITH VIT K 10 ML, TRACE (CONC-1ML/DOSE) 1 ML in AMINO ACID 5%-D20W+LY IV SCH ×6 (00:40→01:28)
[2021-01-04 00:52] LABS: Glucose,Whole Blood 141 mg/dL (75-99)
[2021-01-04] MEDS: OCTREOTIDE 100 MCG/ML INJ SQ SCH ×3 (05:16→20:57)
[2021-01-04 06:10] LABS: Glucose,Whole Blood 126 mg/dL (75-99)
--- NOTE | 2021-01-04 07:20 | P.CONS ---
History of Present Illness - Reason for Consult Consult date: 01/02/21 Diarrhea Requesting physician: Francis Andrade - Chief Complaint Diarrhea - History of Present Illness 60-year-old male with multiple medical comorbidities including a history of stage IV rectal adenocarcinoma status post surgical intervention with ostomy formation and currently on chemotherapy who presented to the hospital due to diarrhea. Patient reports frequent loose bowel movements over the past 3 weeks. He has been having up to 10 loose watery bowel movements with frequent emptying of his ostomy bag been started on new chemotherapeutic medication for his metastatic colon cancer. Patient has tried multiple medications to slow down the bowel movements including Questran, Lomotil and most recently octreotide. Currently the patient has been started on total parenteral nutrition. He denies any abdominal pain at this time. Previously the patient has undergone endoscopic evaluation for GI bleed with EGD on 08/19/2020 with findings of a 1 cm ulcer distal to the gastrojejunal anastomosis with multiple superficial ulcers of the small bowel distal to the anastomosis and short segment Amin's esophagus. Review of Systems REVIEW OF SYSTEMS: CONSTITUTIONAL: Denies any fevers, chills, weight change or fatigue. CARDIOVASCULAR: Denies any chest pain, palpitations high or low blood pressures RESPIRATORY: Denies any shortness of breath, hemoptysis or cough. GENITOURINARY: No dysuria or hematuria. MUSCULOSKELETAL: No weakness reported. SKIN: Denies any new rashes or lesions, jaundice or pallor. PSYCHIATRIC: Denies any depression or anxiety. NEUROLOGY: Denies headache, denies any new focal deficits. EARS/NOSE/THROAT: No recent hearing change, congestion, nasal discharge or sore throat. EYES: No pain in eyes, discharge or change in vision. GASTROINTESTINAL: As per HPI. Past Medical History Past Medical History: Cancer, GERD/Reflux, Prostate Disorder Additional Past Medical History / Comment(s): colon cancer-LAST CHEMO AND RADIATION IN May. GI BLEED MARCH 2020 History of Any Multi-Drug Resistant Organisms: None Reported Past Surgical History: Bowel Resection Additional Past Surgical History / Comment(s): liver/rectal colon cancer,. COLONOSCOPY Past Anesthesia/Blood Transfusion Reactions: No Reported Reaction Past Psychological History: No Psychological Hx Reported Smoking Status: Never smoker Past Alcohol Use History: None Reported Past Drug Use History: None Reported - Past Family History Father Family Medical History: Cancer Medications and Allergies Home Medications Medication Instructions Recorded Confirmed Type Tamsulosin [Flomax] 0.4 mg PO HS 08/17/20 12/27/20 History Pantoprazole Sodium [Protonix] 40 mg PO DAILY 10/17/20 12/27/20 History Diphenox-Atrop 2.5-0.025 mg 1 tab PO Q6H PRN 12/27/20 12/27/20 History [Lomotil] Loperamide HCl [Imodium A-D] 2 mg PO Q6H PRN 12/27/20 12/27/20 History Allergies Allergy/AdvReac Type Severity Reaction Status Date / Time Sulfa (Sulfonamide Allergy Anaphylaxis Verified 12/27/20 20:13 Antibiotics) Physical Exam Vitals: Vital Signs Temp Pulse Resp BP Pulse Ox 01/02/21 11:13 97.4 F L 61 14 97/61 99 01/02/21 04:57 97.9 F 59 L 14 102/63 99 01/01/21 20:13 98 F 59 L 16 120/71 99 Intake and Output 01/01/21 01/02/21 01/02/21 22:59 06:59 14:59 Intake Total 1550 Balance 1550 Intake: Intake, IV Titration 1200 Amount D5-0.9% NaCl with KCl 20 1200 Meq/l 1,000 ml @ 100 mls/ hr IV .Q10H CHENG Rx#: [id number] Oral 350 Other: Voiding Method Toilet # Voids 1 3 Weight 69.853 kg On physical examination, patient appears comfortable in no apparent distress. HEAD: Normocephalic, atraumatic. EYES: No scleral icterus. No conjunctival injection. MOUTH: No lesions, tongue midline. NECK: Trachea midline, no gross abnormalities. CHEST: Clear to auscultation with no wheezing or rhonchi appreciated. HEART: Regular rate and rhythm. ABDOMEN: Soft, minimal output from ostomy. Bowel sounds are positive. No organomegaly. No guarding or rigidity. EXTREMITIES: No pedal edema. SKIN: No rashes, no jaundice. NEUROLOGIC: Alert and oriented x3. No focal deficits. Results CBC & Chem 7: 01/02/21 05:57 01/03/21 06:29 Labs: Abnormal Lab Results - Last 24 Hours (Table) 01/02/21 01/02/21 Range/Units 05:57 05:57 RBC 4.32 L (4.40-5.60) X 10*6/uL Hgb 12.5 L (13.0-17.0) g/dL Hct 39.1 L (39.6-50.0) % RDW 22.8 H (11.5-14.5) % BUN 6.0 L (9.0-27.0) mg/dL BUN/Creatinine Ratio 7.50 L (12.00-20.00) Ratio Glucose 136 H (70-110) mg/dL Calcium 8.4 L (8.7-10.3) mg/dL AST 38 H (14-35) U/L Total Protein 4.9 L (6.2-8.2) g/dL Albumin 3.10 L (3.80-4.90) g/dL Microbiology - Last 24 Hours (Table) 12/27/20 20:19 Stool Culture - Final Stool Chest x-ray: report reviewed Assessment and Plan (1) Diarrhea Narrative/Plan: 60-year-old male with metastatic colon cancer currently receiving chemotherapy presented with complaints of multiple loose bowel movements with frequent emptying of his ostomy bag up to 10 times per day. He denies any signs or symptoms of GI bleeding. Symptoms of been present over the past 3 weeks after being started on a new chemotherapy regimen. Testing for C. difficile has been negative. Patient has tried Questran, Lomotil and recently started on octreotide. Currently he is denying any abdominal pains or signs or symptoms of GI bleeding. Suspicion is for symptoms secondary to medication effect. Current Visit: Yes Status: Acute Priority: High Code(s): R19.7 - DIARRHEA, UNSPECIFIED SNOMED Code(s): 64883337 (2) Rectal adenocarcinoma Current Visit: Yes Status: Chronic Priority: Medium Code(s): C20 - MALIGNANT NEOPLASM OF RECTUM SNOMED Code(s): 995171788 Plan: Supportive care Continue n.p.o. and TPN Lomotil be changed to [id number] Continue octreotide 3 times daily Continue Questran 3 times daily Continue to monitor output from ostomy No plans for endoscopic evaluation at this time Thank you for allowing us to participate in the care of the patient
[2021-01-04] MEDS: CHOLESTYRAMINE (WITH SUGAR) 4 GM PACKET PO SCH ×3 (08:48→17:58)
[2021-01-04] MEDS: PETROLATUM, WHITE OINT 50 GM TUBE TOPICAL SCH ×2 (08:48→21:00)
[2021-01-04] MEDS: HYDROCORTISONE 1% CREAM 30 GM TUBE TOPICAL SCH ×2 (08:48→21:00)
[2021-01-04] MEDS: ENOXAPARIN 40 MG/0.4 ML SYRINGE SQ SCH (08:48)
[2021-01-04 09:16] LABS: Basophils # (A) 0.06 X 10*3/uL (0.00-0.10); Basophils % (A) 1.4 %; Eosinophils # (A) 0.35 X 10*3/uL (0.04-0.35); Eosinophils % (A) 8.1 %; HCT 36.2 % (39.6-50.0); HGB 11.7 g/dL (13.0-17.0); Lymphocytes # (A) 0.83 X 10*3/uL (0.90-5.00); Lymphocytes % (A) 19.3 %; MCH 29.3 pg (27.0-32.0); MCHC 32.3 g/dL (32.0-37.0); MCV 90.7 fL (80.0-97.0); Mean Platelet Volume 11.4 fL (9.5-12.2); Monocytes # (A) 0.96 X 10*3/uL (0.20-1.00); Monocytes % (A) 22.3 %; Neutrophils # (A) 2.09 X 10*3/uL (1.80-7.70); Neutrophils % (A) 48.4 %; Platelet Count 284 X 10*3/uL (140-440); RBC 3.99 X 10*6/uL (4.40-5.60); RDW 22.2 % (11.5-14.5); WBC 4.31 X 10*3/uL (4.50-10.00)
--- NOTE | 2021-01-04 10:10 | P.PN ---
Subjective Progress Note Date: 01/04/21 Principal diagnosis: Diarrhea Patient seen and examined sitting up in a bedside chair. He denies any abdominal pain, nausea, or vomiting. He is still having large amounts of output from his ostomy, he has emptied his bag 3 times this morning. It is clear liquid. No other acute changes through the night. Objective - Vital Signs Vital signs: Vital Signs Temp 98.5 F 01/04/21 04:44 Pulse 57 L 01/04/21 04:44 Resp 18 01/04/21 04:44 BP 103/57 01/04/21 04:44 Pulse Ox 97 01/04/21 04:44 Intake & Output 01/03/21 01/04/21 01/04/21 18:59 06:59 18:59 Intake Total 1200 2881 Output Total 1 1 Balance 1200 2880 -1 Intake: Intake, IV Titration 1200 2631 Amount Amino Acid 5%-D20w+Lytes* 1020 E* 1,000 ml @ 85 mls/hr IV .BY DURATION [facility] Rx#: [id number] Mvi, Adult No.4 with Vit 1011 K 10 ml Trace (Conc-1Ml/ Dose) 1 ml In Amino Acid 5%-D20w+Lytes*E* 1,000 ml @ 85 mls/hr IV .BY DURATION [facility] Rx#: [id number] Sodium Chloride 0.9% 1, 1200 600 000 ml @ 100 mls/hr IV . Q10H [facility] Rx#:[id number] Oral 250 Output: Stool 1 1 Other: Voiding Method Toilet Toilet Toilet # Voids 4 # Bowel Movements 3 - Exam General appearance: The patient is alert, oriented, appears in no acute distress. HET: Head is normocephalic and atraumatic. Conjunctiva pink. Sclera anicteric. Neck: Supple without lymphadenopathy. Abdomen: Soft, nontender, nondistended with bowel sounds. Ostomy. No guarding or rigidity. Extremities: Normal skin color and turgor. No pedal edema Skin: No rashes, no jaundice Neurological: No focal deficits. Alert and oriented 3. - Labs CBC & Chem 7: 01/04/21 04:55 01/04/21 04:55 Labs: Abnormal Lab Results - Last 24 Hours (Table) 01/03/21 01/03/21 01/03/21 Range/Units 11:41 14:20 16:55 WBC (4.50-10.00) X 10*3/uL RBC (4.40-5.60) X 10*6/uL Hgb (13.0-17.0) g/dL Hct (39.6-50.0) % RDW (11.5-14.5) % Lymphocytes # (0.90-5.00) X 10*3/uL POC Glucose (mg/dL) 107 H 113 H (75-99) mg/dL Stool Lactoferrin POSITIVE A (NEGATIVE) 01/04/21 01/04/21 01/04/21 Range/Units 00:13 00:51 04:55 WBC 4.31 L (4.50-10.00) X 10*3/uL RBC 3.99 L (4.40-5.60) X 10*6/uL Hgb 11.7 L (13.0-17.0) g/dL Hct 36.2 L (39.6-50.0) % RDW 22.2 H (11.5-14.5) % Lymphocytes # 0.83 L (0.90-5.00) X 10*3/uL POC Glucose (mg/dL) 109 H 141 H (75-99) mg/dL Stool Lactoferrin (NEGATIVE) 01/04/21 Range/Units 06:08 WBC (4.50-10.00) X 10*3/uL RBC (4.40-5.60) X 10*6/uL Hgb (13.0-17.0) g/dL Hct (39.6-50.0) % RDW (11.5-14.5) % Lymphocytes # (0.90-5.00) X 10*3/uL POC Glucose (mg/dL) 126 H (75-99) mg/dL Stool Lactoferrin (NEGATIVE) Microbiology - Last 24 Hours (Table) 01/03/21 14:20 Stool Culture - Preliminary Stool Assessment and Plan (1) Diarrhea Narrative/Plan: 60-year-old male with a history of adenocarcinoma diagnosed in 2018. Recently started on chemotherapy approximately 5 weeks ago which was stopped 2 weeks ago for persistent diarrhea. Patient had reported having up to 10 watery stools a day and to empty his [place] pack every 2-3 hours. Denied any blood. Patient states he had a colonoscopy in August 2020 at [facility]. He's had a recent EGD in August 2020 as a follow-up for a large gastric and is anastomotic ulcer. Findings included a 1 cm ulcer just distal to the gastric jejunal anastomosis, multiple superficial small ulcers in the small bowel, in a short segment of Amin's esophagus. C. difficile cytotoxin negative. Patient was started on Questran, Lomotil, and Sandostatin. Diarrhea continuing, spoke with Dr. Andrade from oncology, who is requesting colonoscopy to look for other possible etiology for diarrhea as patient has been status post chemotherapy 5 weeks now.. Current Visit: Yes Status: Acute Priority: High Code(s): R19.7 - DIARRHEA, UNSPECIFIED SNOMED Code(s): 84486304 (2) Rectal adenocarcinoma Narrative/Plan: Oncology following patient Current Visit: Yes Status: Chronic Priority: Medium Code(s): C20 - MALIGNANT NEOPLASM OF RECTUM SNOMED Code(s): 556236353 Plan: 1. Supportive care 2. Continue Lomotil [id number], Questran, and Sandostatin 3. Continue nothing by mouth for bowel rest 4. Extensive Stool studies ordered 5. Will add Zofran [id number] 6. Continue medical management per primary team and hematology 7. Continue TPN 8. Will schedule patient for colonoscopy tomorrow 9. Bowel prep this evening Thank you for this consultation, we will continue to follow Dr. Jamison I agree with the dictator's note, documented as a scribe by Sabina Can.
[2021-01-04 10:49] LABS: African American GFR (CKD) 111.7 (60.0-200.0); Albumin 2.5 g/dL (3.80-4.90); Albumin/Globulin Ratio 1.32 (1.60-3.17); Anion Gap 3.9 mmol/L (4.00-12.00); BUN/Creat Ratio 17.5 Ratio (12.00-20.00); Calcium 8.6 mg/dL (8.7-10.3); Carbon Dioxide 30.1 mmol/L (21.6-31.8); Globulin 1.9 g/dL (1.6-3.3); Magnesium 1.6 mg/dL (1.5-2.4); Non-African American GFR(CKD) 96.4 (60.0-200.0); Phosphorus 3.7 mg/dL (2.4-5.1); Potassium 3.8 mmol/L (3.5-5.5); Total Bilirubin 0.3 mg/dL (0.3-1.2); Total Protein 4.4 g/dL (6.2-8.2)
[2021-01-04 11:51] LABS: Glucose,Whole Blood 112 mg/dL (75-99)
--- NOTE | 2021-01-04 12:13 | P.PN ---
Subjective Progress Note Date: 01/04/21 (delayed charting seen at 1030) Principal diagnosis: Diarrhea Patient is a 60-year-old male for history of stage IV rectal adenocarcinoma status post cholecystectomy currently undergoing treatment with Vectibix and Xelox in addition to Xeloda, GERD, gastric ulcer, prostate disorder who presented to the emergency department at the direction of Dr. Andrade secondary to dehydration and intractable diarrhea. In the ER he underwent extensive evaluation. He was tachycardic on arrival with a pulse of 109. Initial laboratory analysis showed sodium 129, BUN 31, creatinine 1.29, AST 66, and ALT 59. He is status post cycle #2 of his current regimen. This was dose reduced secondary to severe diarrhea during his initial treatment. He also started Xeloda early on 12/17 secondary to increasing diarrhea. He was admitted and started on IV fluids. Oncology was consulted. Initial C. diff was negative. Fecal lactoferrin was positive. Giardia and cryptosporidium were negative. Stoo l culture was negative. He continued to have high output. He was started on cholestyramine which did little to improve his symptoms, and he was started on octreotide on 12/30. He continued to have high output. His octreotide was increased without significant improvement. He was started on TPN 01/01/21. Patient seen and examined at bedside. He continues with high output. no belly pain, nausea, vomiting. no edema. General: non toxic, no distress, appears at stated age, cachectic with temporal and buccal fat pad wasting Derm: warm, dry Head: atraumatic, normocephalic, symmetric Eyes: EOMI, no lid lag, anicteric sclera Mouth: no lip lesion, mucous membranes moist Cardiovascular: S1S2 reg, no murmur, positive posterior tibial pulse bilateral, Lungs: CTA bilateral, no rhonchi, no rales , no accessory muscle use Abdominal: soft, nontender to palpation, no guarding, no appreciable organomeg doris Ext: no gross muscle atrophy, no edema, no contractures Neuro: CN II-XI grossly intact, no focal neuro deficits Psych: Alert, oriented, appropriate affect Intractable diarrhea -Suspect related to chemotherapy -Oncology recommendations appreciated: cholestyramine, NPO - Octreotide increased to 100 TID on the morning of 01/01 - TPN started 01/02 - [facility] ordered - GI recs: Scope in AM -Fecal lactoferrin positive, stool culture negative -Monitor output -Cryptosporidium and gairdia negative -Change lomitil scheduled. Hypomagnesemia - management with TPN Metastatic rectal adenocarcinoma -Oncology recommendations Severe protein calorie malnutrition secondary to recent weight loss -Supplementation -Dietitian recs Transaminitis, mild -Follow CMP Hypokalemia, resolved Hyponatremia and acute kidney injury secondary to dehydration, resolved DVT prophylaxis: Lovenox Discussed with: Patient, nursing Anticipated discharge: 2-[address]: Home A total of 35 minutes was spent on the care of this complex patient more than 50% of the time was spent in counseling and care coordination. Objective - Vital Signs Vital signs: Vital Signs Temp 98.5 F 01/04/21 04:44 Pulse 57 L 01/04/21 04:44 Resp 18 01/04/21 04:44 BP 103/57 01/04/21 04:44 Pulse Ox 97 01/04/21 04:44 Intake & Output 01/03/21 01/04/21 01/04/21 18:59 06:59 18:59 Intake Total 1200 2881 Output Total 1 1 Balance 1200 2880 -1 Intake: Intake, IV Titration 1200 2631 Amount Amino Acid 5%-D20w+Lytes* 1020 E* 1,000 ml @ 85 mls/hr IV .BY DURATION [facility] Rx#: [id number] Mvi, Adult No.4 with Vit 1011 K 10 ml Trace (Conc-1Ml/ Dose) 1 ml In Amino Acid 5%-D20w+Lytes*E* 1,000 ml @ 85 mls/hr IV .BY DURATION [facility] Rx#: [id number] Sodium Chloride 0.9% 1, 1200 600 000 ml @ 100 mls/hr IV . Q10H [facility] Rx#:[id number] Oral 250 Output: Stool 1 1 Other: Voiding Method Toilet Toilet Toilet # Voids 4 # Bowel Movements 3 - Labs CBC & Chem 7: 01/04/21 04:55 01/04/21 04:55 Labs: Abnormal Lab Results - Last 24 Hours (Table) 01/03/21 01/03/21 01/03/21 Range/Units 11:41 14:20 16:55 WBC (4.50-10.00) X 10*3/uL RBC (4.40-5.60) X 10*6/uL Hgb (13.0-17.0) g/dL Hct (39.6-50.0) % RDW (11.5-14.5) % Lymphocytes # (0.90-5.00) X 10*3/uL Anion Gap (4.00-12.00) mmol/L Glucose (70-110) mg/dL POC Glucose (mg/dL) 107 H 113 H (75-99) mg/dL Calcium (8.7-10.3) mg/dL Total Protein (6.2-8.2) g/dL Albumin (3.80-4.90) g/dL Albumin/Globulin Ratio (1.60-3.17) g/dL Stool Lactoferrin POSITIVE A (NEGATIVE) 01/04/21 01/04/21 01/04/21 Range/Units 00:13 00:51 04:55 WBC (4.50-10.00) X 10*3/uL RBC (4.40-5.60) X 10*6/uL Hgb (13.0-17.0) g/dL Hct (39.6-50.0) % RDW (11.5-14.5) % Lymphocytes # (0.90-5.00) X 10*3/uL Anion Gap 3.90 L (4.00-12.00) mmol/L Glucose 117 H (70-110) mg/dL POC Glucose (mg/dL) 109 H 141 H (75-99) mg/dL Calcium 8.6 L (8.7-10.3) mg/dL Total Protein 4.4 L (6.2-8.2) g/dL Albumin 2.50 L (3.80-4.90) g/dL Albumin/Globulin Ratio 1.32 L (1.60-3.17) g/dL Stool Lactoferrin (NEGATIVE) 01/04/21 01/04/21 Range/Units 04:55 06:08 WBC 4.31 L (4.50-10.00) X 10*3/uL RBC 3.99 L (4.40-5.60) X 10*6/uL Hgb 11.7 L (13.0-17.0) g/dL Hct 36.2 L (39.6-50.0) % RDW 22.2 H (11.5-14.5) % Lymphocytes # 0.83 L (0.90-5.00) X 10*3/uL Anion Gap (4.00-12.00) mmol/L Glucose (70-110) mg/dL POC Glucose (mg/dL) 126 H (75-99) mg/dL Calcium (8.7-10.3) mg/dL Total Protein (6.2-8.2) g/dL Albumin (3.80-4.90) g/dL Albumin/Globulin Ratio (1.60-3.17) g/dL Stool Lactoferrin (NEGATIVE) Microbiology - Last 24 Hours (Table) 01/03/21 14:20 Stool Culture - Preliminary Stool
[2021-01-04] MEDS: 1: MVI, ADULT NO.4 WITH VIT K 10 ML, TRACE (CONC-1ML/DOSE) 1 ML, POTASSIUM CHLORIDE 20 M IV SCH ×4 (14:16)
[2021-01-04] MEDS: FAT EMULSION 20% 250 ML in EMPTY BAG 1 BAG IV SCH (14:17)
[2021-01-04] MEDS: SODIUM CHLORIDE 0.9% 1,000 ML IV SCH ×2 (14:18→16:44)
[2021-01-04 18:04] LABS: Glucose,Whole Blood 129 mg/dL (75-99)
[2021-01-04] MEDS ORDERED: MAGNESIUM CITRATE 296 ML BOTTLE PO ONE (20:00)
--- NOTE | 2021-01-04 21:01 | P.PN ---
Subjective Progress Note Date: 01/04/21 Principal diagnosis: NISH, Dehydration Still with large output, positive fecal leukocytes representing inflammatory process. [facility] ordered and pharmacy to obtain for patient Objective - Vital Signs Vital signs: Vital Signs Temp 97.6 F 01/04/21 12:11 Pulse 54 L 01/04/21 12:11 Resp 17 01/04/21 12:11 BP 96/54 01/04/21 19:01 Pulse Ox 100 01/04/21 12:11 Intake & Output 01/04/21 01/04/21 01/05/21 06:59 18:59 06:59 Intake Total 2881 Output Total 1 1 Balance 2880 -1 Intake: Intake, IV Titration 2631 Amount Amino Acid 5%-D20w+Lytes* 1020 E* 1,000 ml @ 85 mls/hr IV .BY DURATION [facility] Rx#: [id number] Mvi, Adult No.4 with Vit 1011 K 10 ml Trace (Conc-1Ml/ Dose) 1 ml In Amino Acid 5%-D20w+Lytes*E* 1,000 ml @ 85 mls/hr IV .BY DURATION [facility] Rx#: [id number] Sodium Chloride 0.9% 1, 600 000 ml @ 50 mls/hr IV . Q20H [facility] Rx#:[id number] Oral 250 Output: Stool 1 1 Other: Voiding Method Toilet Toilet # Voids 4 5 # Bowel Movements 3 5 - Exam - Constitutional General appearance: Present: no acute distress - EENT Eyes: Present: EOMI ENT: Present: hearing grossly normal, normal oropharynx - Respiratory Respiratory: bilateral: CTA - Cardiovascular Rhythm: regular Heart sounds: normal: S1, S2 - Gastrointestinal Gastrointestinal Comment(s): Right lower quadrant ostomy, with liquid greenish stool General gastrointestinal: Present: soft - Integumentary Integumentary: Present: normal - Neurologic Neurologic: Present: CNII-XII intact - Musculoskeletal Musculoskeletal: Present: generalized weakness - Psychiatric Psychiatric: Present: A&O x's 3, appropriate affect - Labs CBC & Chem 7: 01/04/21 04:55 01/05/21 06:16 Labs: Abnormal Lab Results - Last 24 Hours (Table) 01/03/21 01/04/21 01/04/21 Range/Units 14:20 00:13 00:51 WBC (4.50-10.00) X 10*3/uL RBC (4.40-5.60) X 10*6/uL Hgb (13.0-17.0) g/dL Hct (39.6-50.0) % RDW (11.5-14.5) % Lymphocytes # (0.90-5.00) X 10*3/uL Anion Gap (4.00-12.00) mmol/L Glucose (70-110) mg/dL POC Glucose (mg/dL) 109 H 141 H (75-99) mg/dL Calcium (8.7-10.3) mg/dL Total Protein (6.2-8.2) g/dL Albumin (3.80-4.90) g/dL Albumin/Globulin Ratio (1.60-3.17) g/dL Stool Lactoferrin POSITIVE A (NEGATIVE) 01/04/21 01/04/21 01/04/21 Range/Units 04:55 04:55 06:08 WBC 4.31 L (4.50-10.00) X 10*3/uL RBC 3.99 L (4.40-5.60) X 10*6/uL Hgb 11.7 L (13.0-17.0) g/dL Hct 36.2 L (39.6-50.0) % RDW 22.2 H (11.5-14.5) % Lymphocytes # 0.83 L (0.90-5.00) X 10*3/uL Anion Gap 3.90 L (4.00-12.00) mmol/L Glucose 117 H (70-110) mg/dL POC Glucose (mg/dL) 126 H (75-99) mg/dL Calcium 8.6 L (8.7-10.3) mg/dL Total Protein 4.4 L (6.2-8.2) g/dL Albumin 2.50 L (3.80-4.90) g/dL Albumin/Globulin Ratio 1.32 L (1.60-3.17) g/dL Stool Lactoferrin (NEGATIVE) 01/04/21 01/04/21 Range/Units 11:46 18:02 WBC (4.50-10.00) X 10*3/uL RBC (4.40-5.60) X 10*6/uL Hgb (13.0-17.0) g/dL Hct (39.6-50.0) % RDW (11.5-14.5) % Lymphocytes # (0.90-5.00) X 10*3/uL Anion Gap (4.00-12.00) mmol/L Glucose (70-110) mg/dL POC Glucose (mg/dL) 112 H 129 H (75-99) mg/dL Calcium (8.7-10.3) mg/dL Total Protein (6.2-8.2) g/dL Albumin (3.80-4.90) g/dL Albumin/Globulin Ratio (1.60-3.17) g/dL Stool Lactoferrin (NEGATIVE) Microbiology - Last 24 Hours (Table) 01/03/21 14:20 Stool Culture - Preliminary Stool Assessment and Plan Plan: Assessment and Plan Diarrhea This continues to be quite significant despite very aggressive antidiarrheal management, with octreotide at 100 mg subcutaneous fluid, Lomotil, and Questran. Patient is also essentially nothing by mouth, with very minor exceptions - Continue current aggressive management as above - TPN at this time for bowel rest - Budesomide to start - GI is following no mention of endoscopy planned at this time - Inflammatory process likely related to treatment Rectal adenocarcinoma Treatment plan is currently on hold, pending resolution of current acute complaints. Malnutrition - Continue daily labs and TPN
[2021-01-04 23:59] LABS: Glucose,Whole Blood 108 mg/dL (75-99)
[2021-01-05] MEDS: ONDANSETRON ODT 4 MG TAB PO SCH ×3 (01:04→16:13)
[2021-01-05] MEDS: SALT AND SODA MOUTHWASH 1,000 ML PO SCH ×5 (01:04→20:51)
[2021-01-05] MEDS: 1: MVI, ADULT NO.4 WITH VIT K 10 ML, TRACE (CONC-1ML/DOSE) 1 ML, POTASSIUM CHLORIDE 20 M IV SCH ×8 (01:24→14:30)
[2021-01-05] MEDS: OCTREOTIDE 100 MCG/ML INJ SQ SCH ×3 (05:03→20:51)
[2021-01-05] MEDS: DIPHENOX-ATROP 2.5-0.025 MG 1 EACH TAB PO SCH ×3 (05:04→17:30)
[2021-01-05 06:51] LABS: Glucose,Whole Blood 146 mg/dL (75-99)
[2021-01-05] MEDS: CHOLESTYRAMINE (WITH SUGAR) 4 GM PACKET PO SCH ×3 (08:43→19:02)
[2021-01-05] MEDS: HYDROCORTISONE 1% CREAM 30 GM TUBE TOPICAL SCH ×2 (08:44→20:52)
[2021-01-05] MEDS: PETROLATUM, WHITE OINT 50 GM TUBE TOPICAL SCH ×2 (08:44→20:52)
[2021-01-05] MEDS: ENOXAPARIN 40 MG/0.4 ML SYRINGE SQ SCH (08:45)
[2021-01-05] MEDS: SODIUM CHLORIDE 0.9% 1,000 ML IV SCH (08:52)
[2021-01-05 11:46] LABS: Glucose,Whole Blood 111 mg/dL (75-99)
[2021-01-05 11:46] LABS: African American GFR (CKD) 106.5 (60.0-200.0); Anion Gap 3.2 mmol/L (4.00-12.00); BUN/Creat Ratio 23.33 Ratio (12.00-20.00); Calcium 8.9 mg/dL (8.7-10.3); Carbon Dioxide 30.8 mmol/L (21.6-31.8); Magnesium 1.6 mg/dL (1.5-2.4); Non-African American GFR(CKD) 91.9 (60.0-200.0); Phosphorus 3.8 mg/dL (2.4-5.1)
--- NOTE | 2021-01-05 13:39 | P.PN ---
Subjective Progress Note Date: 01/05/21 (delayed charting seen at 0930) Principal diagnosis: Diarrhea Patient is a 60-year-old male for history of stage IV rectal adenocarcinoma status post cholecystectomy currently undergoing treatment with Vectibix in addition to Xeloda, GERD, gastric ulcer, prostate disorder who presented to the emergency department at the direction of Dr. Andrade secondary to dehydration and intractable diarrhea. In the ER he underwent an extensive evaluation. He was tachycardic on arrival with a pulse of 109. Initial laboratory analysis showed sodium 129, BUN 31, creatinine 1.29, AST 66, and ALT 59. He is status post cycle #2 of his current regimen. This was dose reduced secondary to severe diarrhea during his initial treatment. He also stopped Xeloda early on 12/17 secondary to increasing diarrhea. He was admitted and started on IV fluids. Oncology was consulted. Initial C. diff was negative. Fecal lactoferrin was positive. Giardia and cryptosporidium were negative. Stool culture was negative. He continued to have high output. He was started on cholestyramine which did little to improve his symptoms, and he was started on octreotide on 12/30. He continued to have high output. His octreotide was increased without significant improvement. He was started on TPN 01/01/21. GI was consulted and plans are for scope on 01/05. He was started on budenoside on 01/04. Patient seen and examined at bedside. He emptied his ostomy bag multiple times overnight after the mag citrate for his scope. No chest pain, sob, nausea, belly pain, edema. General: non toxic, no distress, appears at stated age Derm: warm, dry Head: atraumatic, normocephalic, symmetric Eyes: EOMI, no lid lag, anicteric sclera Mouth: no lip lesion, mucous membranes moist Cardiovascular: S1S2 reg, no murmur, positive posterior tibial pulse bilateral, Lungs: CTA bilateral, no rhonchi, no rales , no accessory muscle use Abdominal: soft, nontender to palpation, no guarding, no appreciable organomegaly, liquid output through ostomy with protrusion of intestine through ostomy which is chronic per patient Ext: no gross muscle atrophy, no edema, no contractures Neuro: CN II-XI grossly intact, no focal neuro deficits Psych: Alert, oriented, appropriate affect Intractable diarrhea -Suspect related to chemotherapy -Oncology recommendations appreciated: cholestyramine, NPO - Octreotide increased to 100 TID on the morning of 01/01 - TPN started 01/02 - Budesnoide started 01/04 - GI recs: Scope today -Fecal lactoferrin positive, stool culture negative -Monitor output -Cryptosporidium and gairdia negative -Change lomitil scheduled. Hypomagnesemia - management with TPN Metastatic rectal adenocarcinoma -Oncology recommendations Severe protein calorie malnutrition secondary to recent weight loss -Supplementation -Dietitian recs Transaminitis, mild -Follow CMP Hypokalemia, resolved Hyponatremia and acute kidney injury secondary to dehydration, resolved DVT prophylaxis: Lovenox Discussed with: Patient, nursing Anticipated discharge: 2-[address]: Home A total of 35 minutes was spent on the care of this complex patient more than 50% of the time was spent in counseling and care coordination. Objective - Vital Signs Vital signs: Vital Signs Temp 98.1 F 01/05/21 05:00 Pulse 49 L 01/05/21 05:00 Resp 16 01/05/21 05:00 BP 107/66 01/05/21 05:00 Pulse Ox 97 01/05/21 05:00 Intake & Output 01/04/21 01/05/21 01/05/21 18:59 06:59 18:59 Intake Total 590 Output Total 1 1 Balance -1 590 -1 Intake: Oral 590 Output: Stool 1 1 Other: Voiding Method Toilet Toilet Toilet # Voids 5 2 # Bowel Movements 5 - Labs CBC & Chem 7: 01/04/21 04:55 01/05/21 06:16 Labs: Abnormal Lab Results - Last 24 Hours (Table) 01/04/21 01/04/21 01/05/21 Range/Units 18:02 23:57 06:16 Anion Gap 3.20 L (4.00-12.00) mmol/L BUN/Creatinine Ratio 23.33 H (12.00-20.00) Ratio Glucose 129 H (70-110) mg/dL POC Glucose (mg/dL) 129 H 108 H (75-99) mg/dL 01/05/21 01/05/21 Range/Units 06:49 11:44 Anion Gap (4.00-12.00) mmol/L BUN/Creatinine Ratio (12.00-20.00) Ratio Glucose (70-110) mg/dL POC Glucose (mg/dL) 146 H 111 H (75-99) mg/dL
[2021-01-05 14:01] LABS: Potassium 5.1 mmol/L (3.5-5.5)
[2021-01-05 14:04] LABS: Anisocytosis Moderate; Basophils # (A) 0.1 k/uL (0-0.2); Basophils % (A) 1 %; Eosinophils # (A) 0.3 k/uL (0-0.7); Eosinophils % (A) 6 %; Hypochromasia Slight; Lymphocytes % (A) 24 %; MCH 29.1 pg (25.0-35.0); MCHC 31.6 g/dL (31.0-37.0); MCV 92.1 fL (80.0-100.0); Macrocytosis Slight; Mean Platelet Volume 7.9; Monocytes # (A) 0.5 k/uL (0-1.0); Monocytes % (A) 13 %; Neutrophils # (A) 2.2 k/uL (1.3-7.7); Neutrophils % (A) 54 %; Platelet Count 274 k/uL (150-450); RBC 4.45 m/uL (4.30-5.90); RDW 20.3 % (11.5-15.5); WBC 4.2 k/uL (3.8-10.6)
[2021-01-05 14:14] LABS: Potassium 4.4 mmol/L (3.5-5.1)
[2021-01-05 14:15] LABS: ALT 25 U/L (4-49); AST 44 U/L (17-59); African American GFR (CKD) >90 (>60 ml/min/1.73 sqM); Albumin 2.8 g/dL (3.5-5.0); Albumin/Globulin Ratio 1.1; Alkaline Phosphatase 84 U/L (38-126); Anion Gap 4 mmol/L; Blood Urea Nitrogen 24 mg/dL (9-20); Calcium 8.4 mg/dL (8.4-10.2); Carbon Dioxide 31 mmol/L (22-30); Chloride 100 mmol/L (98-107); Globulin 2.5 g/dL; Glucose 107 mg/dL (74-99); Non-African American GFR(CKD) >90 (>60 ml/min/1.73 sqM); Sodium 135 mmol/L (137-145); Total Bilirubin 0.4 mg/dL (0.2-1.3); Total Protein 5.3 g/dL (6.3-8.2)
[2021-01-05] MEDS ORDERED: LIDOCAINE 1% INJ 10MG/ML (20 ML MDV) ONE (14:54)
[2021-01-05] MEDS ORDERED: PROPOFOL 10 MG/ML 20 ML VIAL IV ONE (14:54)
[2021-01-05] MEDS ORDERED: IV FLUID CONTINUATION 1,000 ML IV ONE (15:00)
--- NOTE | 2021-01-05 15:23 | P.PCN ---
Date of Procedure: 01/05/21 Description of Procedure: BRIEF HISTORY: 60-year-old male with multiple medical comorbidities including a history of stage IV rectal adenocarcinoma status post surgical intervention with ostomy formation and currently on chemotherapy who presented to the hospital due to diarrhea. Patient reports frequent loose bowel movements over the past 3 weeks. He has been having up to 10 loose watery bowel movements with frequent emptying of his ostomy bag been started on new chemotherapeutic medication for his metastatic colon cancer. Patient has tried multiple medications to slow down the bowel movements including Questran, Lomotil and most recently octreotide. Currently the patient has been started on total parenteral nutrition. He denies any abdominal pain at this time. Previously the patient has undergone endoscopic evaluation for GI bleed with EGD on 08/19/2020 with findings of a 1 cm ulcer distal to the gastrojejunal anastomosis with multiple superficial ulcers of the small bowel distal to the anastomosis and short segment Amin's esophagus. PROCEDURE PERFORMED: Small bowel enteroscopy through end ileostomy. PREOPERATIVE DIAGNOSIS: Diarrhea, rectal cancer. ESTIMATED BLOOD LOSS: Minimal. IV sedation per Anesthesia. PROCEDURE: After informed consent was obtained, the patient, was brought into the endoscopy unit. IV sedation was administered by Anesthesia under continuous monitoring. Digital rectal examination was normal. Initially the Olympus GF 190 gastroscope was inserted through the patient's and ostomy and into the small bowel. The scope was inserted approximately 50 cm from the ostomy and then slowly withdrawn. The entirety of the small bowel appeared normal with no inflammation or abnormalities noted. The patient tolerated the procedure well. IMPRESSION: Normal-appearing small bowel up to 50 cm past the ostomy. RECOMMENDATIONS: Findings of this examination were discussed with the patient. Continue current medical management. Continue parenteral nutrition. Okay to try diet as per gastroenterology. Continue Lomotil and Questran therapy..
--- NOTE | 2021-01-05 15:43 | P.PN ---
Subjective Progress Note Date: 01/05/21 Principal diagnosis: NISH, Dehydration Patient having scope today, output is improved, although need to consider NPO since midnight for scope. Will advance to clears this evning and monitor strict output. Objective - Vital Signs Vital signs: Vital Signs Temp 98.5 F 01/05/21 14:12 Pulse 51 L 01/05/21 14:12 Resp 18 01/05/21 14:12 BP 96/55 01/05/21 14:12 Pulse Ox 99 01/05/21 14:12 Intake & Output 01/04/21 01/05/21 01/05/21 18:59 06:59 18:59 Intake Total 1611 150 Output Total 1 1 Balance -1 1611 149 Weight 69.853 kg Intake: IV 150 Intake, IV Titration 1021 Amount Mvi, Adult No.4 with Vit 1021 K 10 ml Trace (Conc-1Ml/ Dose) 1 ml Potassium Chloride 20 meq In Amino Acid 5%-D20w+Lytes*E* 1, 000 ml @ 85 mls/hr IV .BY DURATION [facility] Rx#: [id number] Oral 590 Output: Stool 1 1 Other: Voiding Method Toilet Toilet Toilet # Voids 5 2 # Bowel Movements 5 - Exam - Constitutional General appearance: Present: no acute distress - EENT Eyes: Present: EOMI ENT: Present: hearing grossly normal, normal oropharynx - Respiratory Respiratory: bilateral: CTA - Cardiovascular Rhythm: regular Heart sounds: normal: S1, S2 - Gastrointestinal Gastrointestinal Comment(s): Right lower quadrant ostomy, with liquid greenish stool General gastrointestinal: Present: soft - Integumentary Integumentary: Present: normal - Neurologic Neurologic: Present: CNII-XII intact - Musculoskeletal Musculoskeletal: Present: generalized weakness - Psychiatric Psychiatric: Present: A&O x's 3, appropriate affect - Labs CBC & Chem 7: 01/05/21 13:48 01/05/21 13:48 Labs: Abnormal Lab Results - Last 24 Hours (Table) 01/04/21 01/04/21 01/05/21 Range/Units 18:02 23:57 06:16 RDW (11.5-15.5) % Sodium (137-145) mmol/L Carbon Dioxide (22-30) mmol/L Anion Gap 3.20 L (4.00-12.00) mmol/L BUN (9-20) mg/dL BUN/Creatinine Ratio 23.33 H (12.00-20.00) Ratio Glucose 129 H (70-110) mg/dL POC Glucose (mg/dL) 129 H 108 H (75-99) mg/dL Total Protein (6.3-8.2) g/dL Albumin (3.5-5.0) g/dL 01/05/21 01/05/21 01/05/21 Range/Units 06:49 11:44 13:48 RDW 20.3 H (11.5-15.5) % Sodium (137-145) mmol/L Carbon Dioxide (22-30) mmol/L Anion Gap (4.00-12.00) mmol/L BUN (9-20) mg/dL BUN/Creatinine Ratio (12.00-20.00) Ratio Glucose (70-110) mg/dL POC Glucose (mg/dL) 146 H 111 H (75-99) mg/dL Total Protein (6.3-8.2) g/dL Albumin (3.5-5.0) g/dL 01/05/21 Range/Units 13:48 RDW (11.5-15.5) % Sodium 135 L (137-145) mmol/L Carbon Dioxide 31 H (22-30) mmol/L Anion Gap (4.00-12.00) mmol/L BUN 24 H (9-20) mg/dL BUN/Creatinine Ratio (12.00-20.00) Ratio Glucose 107 H (70-110) mg/dL POC Glucose (mg/dL) (75-99) mg/dL Total Protein 5.3 L (6.3-8.2) g/dL Albumin 2.8 L (3.5-5.0) g/dL Assessment and Plan Plan: Assessment and Plan Diarrhea This continues to be quite significant despite very aggressive antidiarrheal management, with octreotide at 100 mg subcutaneous fluid, Lomotil, and Questran. Patient is also essentially nothing by mouth, with very minor exceptions - Continue current aggressive management as above - TPN at this time for bowel rest - Budesomide to continue - Inflammatory process likely related to treatment Rectal adenocarcinoma Treatment plan is currently on hold, pending resolution of current acute compla ints. Malnutrition - Continue daily labs and TPN Plan: - Await GI evaluation today - Advance clear liquids tonight and monitor close I and Os
[2021-01-05] MEDS: FAT EMULSION 20% 250 ML in EMPTY BAG 1 BAG IV SCH (16:11)
[2021-01-05 17:42] LABS: Glucose,Whole Blood 119 mg/dL (75-99)
[2021-01-06] MEDS: DIPHENOX-ATROP 2.5-0.025 MG 1 EACH TAB PO SCH ×7 (00:21→23:54)
[2021-01-06] MEDS: ONDANSETRON ODT 4 MG TAB PO SCH ×2 (00:21→00:27)
[2021-01-06] MEDS: 1: MVI, ADULT NO.4 WITH VIT K 10 ML, TRACE (CONC-1ML/DOSE) 1 ML, POTASSIUM CHLORIDE 20 M IV SCH ×8 (00:21→12:51)
[2021-01-06] MEDS: SALT AND SODA MOUTHWASH 1,000 ML PO SCH ×6 (00:22→23:56)
[2021-01-06] MEDS: SODIUM CHLORIDE 0.9% 1,000 ML IV SCH ×2 (00:23→19:43)
[2021-01-06 00:24] LABS: Glucose,Whole Blood 129 mg/dL (75-99)
[2021-01-06] MEDS: OCTREOTIDE 100 MCG/ML INJ SQ SCH ×3 (05:47→21:25)
[2021-01-06 06:27] LABS: Glucose,Whole Blood 124 mg/dL (75-99)
[2021-01-06] MEDS: CHOLESTYRAMINE (WITH SUGAR) 4 GM PACKET PO SCH ×3 (09:01→18:05)
[2021-01-06] MEDS: ENOXAPARIN 40 MG/0.4 ML SYRINGE SQ SCH (09:01)
[2021-01-06] MEDS: HYDROCORTISONE 1% CREAM 30 GM TUBE TOPICAL SCH ×2 (09:03→21:25)
[2021-01-06] MEDS: PETROLATUM, WHITE OINT 50 GM TUBE TOPICAL SCH ×2 (09:03→21:26)
[2021-01-06 11:14] LABS: Basophils # (A) 0.05 X 10*3/uL (0.00-0.10); Eosinophils # (A) 0.41 X 10*3/uL (0.04-0.35); Eosinophils % (A) 8.2 %; HCT 35.5 % (39.6-50.0); HGB 11.4 g/dL (13.0-17.0); Lymphocytes % (A) 15.9 %; MCH 29.2 pg (27.0-32.0); MCHC 32.1 g/dL (32.0-37.0); Mean Platelet Volume 11.5 fL (9.5-12.2); Monocytes # (A) 1.16 X 10*3/uL (0.20-1.00); Monocytes % (A) 23.1 %; Neutrophils # (A) 2.59 X 10*3/uL (1.80-7.70); Neutrophils % (A) 51.4 %; Platelet Count 277 X 10*3/uL (140-440); RDW 21.6 % (11.5-14.5); WBC 5.03 X 10*3/uL (4.50-10.00)
[2021-01-06 11:23] LABS: Glucose,Whole Blood 94 mg/dL (75-99)
--- NOTE | 2021-01-06 13:11 | P.PN ---
Subjective Progress Note Date: 01/06/21 Principal diagnosis: Diarrhea Seen sitting up in his bed. He is without any acute changes through the night. He still having watery stool through his ostomy. Yesterday he underwent small bowel enteroscopy normal appearing small bowel up to 50 cm past the ostomy, without any evidence of any inflammation. Objective - Vital Signs Vital signs: Vital Signs Temp 98.3 F 01/06/21 04:16 Pulse 62 01/06/21 04:16 Resp 16 01/06/21 04:16 BP 106/64 01/06/21 04:16 Pulse Ox 98 01/06/21 04:16 Intake & Output 01/05/21 01/06/21 01/06/21 18:59 06:59 18:59 Intake Total 2780 2341 Output Total 1 50 Balance 2779 2291 Weight 69.853 kg Intake: IV 150 Intake, IV Titration 2630 1621 Amount Mvi, Adult No.4 with Vit 1021 K 10 ml Trace (Conc-1Ml/ Dose) 1 ml Potassium Chloride 20 meq In Amino Acid 5%-D20w+Lytes*E* 1, 000 ml @ 85 mls/hr IV .BY DURATION [facility] Rx#: [id number] Potassium Chloride 20 meq 2030 In Amino Acid 5%-D20w+ Lytes*E* 1,000 ml @ 85 mls/hr IV .BY DURATION [facility] Rx#:[id number] Sodium Chloride 0.9% 1, 600 600 000 ml @ 50 mls/hr IV . Q20H [facility] Rx#:[id number] Oral 720 Output: Stool 1 50 Other: Voiding Method Toilet Toilet Toilet # Voids 2 - Exam General appearance: The patient is alert, oriented, appears in no acute distress. HET: Head is normocephalic and atraumatic. Conjunctiva pink. Sclera anicteric. Neck: Supple without lymphadenopathy. Abdomen: Soft, nontender, nondistended with bowel sounds. Ostomy. No guarding or rigidity. Extremities: Normal skin color and turgor. No pedal edema Skin: No rashes, no jaundice Neurological: No focal deficits. Alert and oriented 3. - Labs CBC & Chem 7: 01/06/21 06:38 01/05/21 13:48 Labs: Abnormal Lab Results - Last 24 Hours (Table) 01/05/21 01/05/21 01/05/21 Range/Units 13:48 13:48 17:41 RBC (4.40-5.60) X 10*6/uL Hgb (13.0-17.0) g/dL Hct (39.6-50.0) % RDW 20.3 H (11.5-15.5) % Lymphocytes # (0.90-5.00) X 10*3/uL Monocytes # (0.20-1.00) X 10*3/uL Eosinophils # (0.04-0.35) X 10*3/uL Sodium 135 L (137-145) mmol/L Carbon Dioxide 31 H (22-30) mmol/L BUN 24 H (9-20) mg/dL Glucose 107 H (74-99) mg/dL POC Glucose (mg/dL) 119 H (75-99) mg/dL Total Protein 5.3 L (6.3-8.2) g/dL Albumin 2.8 L (3.5-5.0) g/dL 01/06/21 01/06/21 01/06/21 Range/Units 00:23 06:26 06:38 RBC 3.90 L (4.40-5.60) X 10*6/uL Hgb 11.4 L (13.0-17.0) g/dL Hct 35.5 L (39.6-50.0) % RDW 21.6 H (11.5-15.5) % Lymphocytes # 0.80 L (0.90-5.00) X 10*3/uL Monocytes # 1.16 H (0.20-1.00) X 10*3/uL Eosinophils # 0.41 H (0.04-0.35) X 10*3/uL Sodium (137-145) mmol/L Carbon Dioxide (22-30) mmol/L BUN (9-20) mg/dL Glucose (74-99) mg/dL POC Glucose (mg/dL) 129 H 124 H (75-99) mg/dL Total Protein (6.3-8.2) g/dL Albumin (3.5-5.0) g/dL Assessment and Plan (1) Diarrhea Narrative/Plan: 60-year-old male with a history of adenocarcinoma diagnosed in 2018. Recently started on chemotherapy approximately 5 weeks ago which was stopped 2 weeks ago for persistent diarrhea. Patient had reported having up to 10 watery stools a day and to empty his [place] pack every 2-3 hours. Denied any blood. Patient states he had a colonoscopy in August 2020 at [facility]. He's had a recent EGD in August 2020 as a follow-up for a large gastric and is anastomotic ulcer. Findings included a 1 cm ulcer just distal to the gastric jejunal anastomosis, multiple superficial small ulcers in the small bowel, in a short segment of Amin's esophagus. C. difficile cytotoxin negative. Patient was started on Questran, Lomotil, and Sandostatin. Diarrhea continuing, spoke with Dr. Andrade from oncology, who is requesting colonoscopy to look for other possible etiology for diarrhea as patient has been status post chemotherapy 5 weeks now.. Current Visit: Yes Status: Acute Priority: High Code(s): R19.7 - DIARRHEA, UNSPECIFIED SNOMED Code(s): 55753353 (2) Rectal adenocarcinoma Narrative/Plan: Oncology following patient Current Visit: Yes Status: Chronic Priority: Medium Code(s): C20 - MALIG NANT NEOPLASM OF RECTUM SNOMED Code(s): 224104355 Plan: 1. Supportive care 2. Continue Lomotil [id number], Questran, and Sandostatin 3. Dietary recommendations per oncology services, from a gastroenterology standpoint patient may advance diet 4. Extensive Stool studies ordered 5. Will add Zofran [id number] 6. Continue medical management per primary team and hematology 7. Continue TPN 8. Patient is status post small bowel enteroscopy Thank you for this consultation, we will on standby. There will be no gastroenterology coverage over the weekend, will resume on Saturday. Dr. Lima I agree with the dictator's note, documented as a scribe by Sabina Can.
--- NOTE | 2021-01-06 15:21 | P.PN ---
Subjective Progress Note Date: 01/06/21 Principal diagnosis: NISH, Dehydration Still with persistent, but thicker output. Spoke with pharmacy and will arrange for continued budesomide, although no active inflammation identified per GI during scope there was obvious fecal leukocytes indicative of this. Objective - Vital Signs Vital signs: Vital Signs Temp 97.7 F 01/06/21 13:44 Pulse 56 L 01/06/21 13:44 Resp 20 01/06/21 13:44 BP 93/55 01/06/21 13:44 Pulse Ox 98 01/06/21 13:44 Intake & Output 01/05/21 01/06/21 01/06/21 18:59 06:59 18:59 Intake Total 2780 2341 Output Total 1 50 Balance 2779 2291 Weight 69.853 kg 69.853 kg Intake: IV 150 Intake, IV Titration 2630 1621 Amount Mvi, Adult No.4 with Vit 1021 K 10 ml Trace (Conc-1Ml/ Dose) 1 ml Potassium Chloride 20 meq In Amino Acid 5%-D20w+Lytes*E* 1, 000 ml @ 85 mls/hr IV .BY DURATION [facility] Rx#: [id number] Potassium Chloride 20 meq 2030 In Amino Acid 5%-D20w+ Lytes*E* 1,000 ml @ 85 mls/hr IV .BY DURATION [facility] Rx#:[id number] Sodium Chloride 0.9% 1, 600 600 000 ml @ 50 mls/hr IV . Q20H [facility] Rx#:[id number] Oral 720 Output: Stool 1 50 Other: Voiding Method Toilet Toilet Toilet # Voids 2 - Exam - Constitutional General appearance: Present: no acute distress - EENT Eyes: Present: EOMI ENT: Present: hearing grossly normal, normal oropharynx - Respiratory Respiratory: bilateral: CTA - Cardiovascular Rhythm: regular Heart sounds: normal: S1, S2 - Gastrointestinal Gastrointestinal Comment(s): Right lower quadrant ostomy, with liquid greenish stool General gastrointestinal: Present: soft - Integumentary Integumentary: Present: normal - Neurologic Neurologic: Present: CNII-XII intact - Musculoskeletal Musculoskeletal: Present: generalized weakness - Psychiatric Psychiatric: Present: A&O x's 3, appropriate affect - Labs CBC & Chem 7: 01/06/21 06:38 01/06/21 06:38 Labs: Abnormal Lab Results - Last 24 Hours (Table) 01/05/21 01/06/21 01/06/21 Range/Units 17:41 00:23 06:26 RBC (4.40-5.60) X 10*6/uL Hgb (13.0-17.0) g/dL Hct (39.6-50.0) % RDW (11.5-14.5) % Lymphocytes # (0.90-5.00) X 10*3/uL Monocytes # (0.20-1.00) X 10*3/uL Eosinophils # (0.04-0.35) X 10*3/uL POC Glucose (mg/dL) 119 H 129 H 124 H (75-99) mg/dL 01/06/21 Range/Units 06:38 RBC 3.90 L (4.40-5.60) X 10*6/uL Hgb 11.4 L (13.0-17.0) g/dL Hct 35.5 L (39.6-50.0) % RDW 21.6 H (11.5-14.5) % Lymphocytes # 0.80 L (0.90-5.00) X 10*3/uL Monocytes # 1.16 H (0.20-1.00) X 10*3/uL Eosinophils # 0.41 H (0.04-0.35) X 10*3/uL POC Glucose (mg/dL) (75-99) mg/dL Assessment and Plan Plan: Assessment and Plan Diarrhea This continues to be quite significant despite very aggressive antidiarrheal management, with octreotide at 100 mg subcutaneous fluid, Lomotil, and Questran. Patient is also essentially nothing by mouth, with very minor exceptions - Continue current aggressive management as above - TPN at this time for bowel rest - Budesomide to continue - Inflammatory process likely related to treatment although during scope no inflammation identified, sample of stool showed positive leukocytes. Regardless this appears consistent with a DJD defificiency given mucocytits, hand/foot and continued output. Rectal adenocarcinoma Treatment plan is currently on hold, pending resolution of current acute complaints. Malnutrition - Continue daily labs and TPN Plan: - Mild improvement - Advance clear liquids tonight but recommend very slow advancement moving forward and monitor close I and Os - Sandostatin was increased per primary team - Continues Budesomide, Questran, lomotil. Next line would be consideration of tincture opium, however will evaluate closely through weekend and reassess. Physician attest: I have completed the full history and physical and agree with above dictation, dictated as a scribe.
[2021-01-06] MEDS: FAT EMULSION 20% 250 ML in EMPTY BAG 1 BAG IV SCH (15:30)
[2021-01-06 15:32] LABS: ALT 22 U/L (4-49); AST 42 U/L (17-59); African American GFR (CKD) >90 (>60 ml/min/1.73 sqM); Albumin 2.4 g/dL (3.5-5.0); Alkaline Phosphatase 73 U/L (38-126); Anion Gap 2 mmol/L; Blood Urea Nitrogen 21 mg/dL (9-20); Calcium 8.2 mg/dL (8.4-10.2); Carbon Dioxide 30 mmol/L (22-30); Chloride 100 mmol/L (98-107); Globulin 2.3 g/dL; Glucose 136 mg/dL (74-99); Magnesium 1.7 mg/dL (1.6-2.3); Non-African American GFR(CKD) >90 (>60 ml/min/1.73 sqM); Phosphorus 3.7 mg/dL (2.5-4.5); Potassium 4.2 mmol/L (3.5-5.1); Sodium 132 mmol/L (137-145); Total Bilirubin 0.3 mg/dL (0.2-1.3); Total Protein 4.7 g/dL (6.3-8.2)
[2021-01-06 17:34] LABS: Glucose,Whole Blood 110 mg/dL (75-99)
[2021-01-06 17:55] LABS: BUN/Creat Ratio 26.25 Ratio (12.00-20.00)
--- NOTE | 2021-01-06 18:56 | P.PN ---
Subjective Progress Note Date: 01/06/21 (delayed charting seen at 0930) Principal diagnosis: Diarrhea Patient is a 60-year-old male for history of stage IV rectal adenocarcinoma status post cholecystectomy currently undergoing treatment with Vectibix in addition to Xeloda, GERD, gastric ulcer, prostate disorder who presented to the emergency department at the direction of Dr. Andrade secondary to dehydration and intractable diarrhea. In the ER he underwent an extensive evaluation. He was tachycardic on arrival with a pulse of 109. Initial laboratory analysis showed sodium 129, BUN 31, creatinine 1.29, AST 66, and ALT 59. He is status post cycle #2 of his current regimen. This was dose reduced secondary to severe diarrhea during his initial treatment. He also stopped Xeloda early on 12/17 secondary to increasing diarrhea. He was admitted and started on IV fluids. Oncology was consulted. Initial C. diff was negative. Fecal lactoferrin was positive. Giardia and cryptosporidium were negative. Stool culture was negative. He continued to have high output. He was started on cholestyramine which did little to improve his symptoms, and he was started on octreotide on 12/30. He continued to have high output. His octreotide was increased without significant improvement. He was started on TPN 01/01/21. GI was consulted and scope was completed on 04/04 which demonstrated no signs of inflammation, no biopsies were taken. He was started on budenoside on 01/04. Patient seen and examined at bedside. He continues to have high output. Almost anything he eats is immediately going through his ostomy. At home he was typically emptying his ostomy 4-5 times daily. Note is approximately every 2 hours. He reports no improvement in symptoms. General: non toxic, no distress, appears at stated age Derm: warm, dry Head: atraumatic, normocephalic, symmetric Eyes: EOMI, no lid lag, anicteric sclera Mouth: no lip lesion, mucous membranes dry Cardiovascular: S1S2 reg, no murmur, positive posterior tibial pulse bilateral, Lungs: CTA bilateral, no rhonchi, no rales , no accessory muscle use Abdominal: soft, nontender to palpation, no guarding, no appreciable organomegaly, liquid output through ostomy with protrusion of intestine through ostomy which is chronic per patient Ext: no gross muscle atrophy, no edema, no contractures Neuro: CN II-XI grossly intact, no focal neuro deficits Psych: Alert, oriented, appropriate affect Intractable diarrhea -related to chemotherapy, 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 Fibercon added for bulking - Called pharmacy on tincture of opium would have to try to order during the week, may take time to arrive. Left message with pharmacy general manager - TPN started 01/02 - Budesnoide started 01/04 - Scope without inflammation -Fecal lactoferrin positive, stool culture negative -Monitor output -Cryptosporidium and gairdia negative -Lomitil increased to q4h on 01/06. Metastatic rectal adenocarcinoma -Oncology recommendations Severe protein calorie malnutrition secondary to recent weight loss -Supplementation -Dietitian recs Transaminitis, resolved Hypokalemia, resolved Hyponatremia and acute kidney injury secondary to dehydration, resolved Hypomagnesemia, resolved Patient unable to be discharged if he continues to have uncontrollable ostomy output despite maximal therapy. May need to consider outpatient arrangements for prolonged TPN. DVT prophylaxis: Lovenox Discussed with: Patient, nursing Anticipated discharge: 4-[address]: Home A total of 35 minutes was spent on the care of this complex patient more than 50% of the time was spent in counseling and care coordination. Objective - Vital Signs Vital signs: Vital Signs Temp 97.7 F 01/06/21 13:44 Pulse 56 L 01/06/21 13:44 Resp 20 01/06/21 13:44 BP 93/55 01/06/21 13:44 Pulse Ox 98 01/06/21 13:44 Intake & Output 01/05/21 01/06/21 01/06/21 18:59 06:59 18:59 Intake Total 2780 2341 1620 Output Total 1 50 Balance 2779 2291 1620 Weight 69.853 kg 69.853 kg Intake: IV 150 Intake, IV Titration 2630 1621 1620 Amount IV Fluid Continuation 1, 1020 000 ml @ 0 mls/hr IV .STK -[facility] Rx#:[id number] Mvi, Adult No.4 with Vit 1021 K 10 ml Trace (Conc-1Ml/ Dose) 1 ml Potassium Chloride 20 meq In Amino Acid 5%-D20w+Lytes*E* 1, 000 ml @ 85 mls/hr IV .BY DURATION [facility] Rx#: [id number] Potassium Chloride 20 meq 2030 In Amino Acid 5%-D20w+ Lytes*E* 1,000 ml @ 85 mls/hr IV .BY DURATION [facility] Rx#:[id number] Sodium Chloride 0.9% 1, 600 600 600 000 ml @ 50 mls/hr IV . Q20H [facility] Rx#:[id number] Oral 720 Output: Stool 1 50 Other: Voiding Method Toilet Toilet Toilet # Voids 2 - Labs CBC & Chem 7: 01/06/21 06:38 01/06/21 06:38 Labs: Abnormal Lab Results - Last 24 Hours (Table) 01/06/21 01/06/21 01/06/21 Range/Units 00:23 06:26 06:38 RBC 3.90 L (4.40-5.60) X 10*6/uL Hgb 11.4 L (13.0-17.0) g/dL Hct 35.5 L (39.6-50.0) % RDW 21.6 H (11.5-14.5) % Lymphocytes # 0.80 L (0.90-5.00) X 10*3/uL Monocytes # 1.16 H (0.20-1.00) X 10*3/uL Eosinophils # 0.41 H (0.04-0.35) X 10*3/uL Sodium (137-145) mmol/L BUN (9-20) mg/dL BUN/Creatinine Ratio (12.00-20.00) Ratio Glucose (74-99) mg/dL POC Glucose (mg/dL) 129 H 124 H (75-99) mg/dL Calcium (8.4-10.2) mg/dL Total Protein (6.3-8.2) g/dL Albumin (3.5-5.0) g/dL 01/06/21 01/06/21 Range/Units 06:38 17:32 RBC (4.40-5.60) X 10*6/uL Hgb (13.0-17.0) g/dL Hct (39.6-50.0) % RDW (11.5-14.5) % Lymphocytes # (0.90-5.00) X 10*3/uL Monocytes # (0.20-1.00) X 10*3/uL Eosinophils # (0.04-0.35) X 10*3/uL Sodium 132 L (137-145) mmol/L BUN 21 H (9-20) mg/dL BUN/Creatinine Ratio 26.25 H (12.00-20.00) Ratio Glucose 136 H (74-99) mg/dL POC Glucose (mg/dL) 110 H (75-99) mg/dL Calcium 8.2 L (8.4-10.2) mg/dL Total Protein 4.7 L (6.3-8.2) g/dL Albumin 2.4 L (3.5-5.0) g/dL
[2021-01-07 00:26] LABS: Glucose,Whole Blood 92 mg/dL (75-99)
[2021-01-07] MEDS: 1: MVI, ADULT NO.4 WITH VIT K 10 ML, TRACE (CONC-1ML/DOSE) 1 ML, POTASSIUM CHLORIDE 20 M IV SCH ×12 (01:16→14:28)
[2021-01-07] MEDS: DIPHENOX-ATROP 2.5-0.025 MG 1 EACH TAB PO SCH ×7 (03:25→22:57)
[2021-01-07] MEDS: OCTREOTIDE 100 MCG/ML INJ SQ SCH ×2 (05:46→18:42)
[2021-01-07] MEDS: SALT AND SODA MOUTHWASH 1,000 ML PO SCH ×4 (05:47→20:56)
[2021-01-07 06:02] LABS: Glucose,Whole Blood 113 mg/dL (75-99)
[2021-01-07] MEDS: ENOXAPARIN 40 MG/0.4 ML SYRINGE SQ SCH (09:30)
[2021-01-07] MEDS: PETROLATUM, WHITE OINT 50 GM TUBE TOPICAL SCH ×2 (09:31→20:57)
[2021-01-07] MEDS: HYDROCORTISONE 1% CREAM 30 GM TUBE TOPICAL SCH ×2 (09:32→20:57)
[2021-01-07 09:46] LABS: African American GFR (CKD) 111.7 (60.0-200.0); Albumin 2.5 g/dL (3.80-4.90); Albumin/Globulin Ratio 1.09 (1.60-3.17); Anion Gap 4.3 mmol/L (4.00-12.00); BUN/Creat Ratio 23.75 Ratio (12.00-20.00); Calcium 8.7 mg/dL (8.7-10.3); Carbon Dioxide 26.7 mmol/L (21.6-31.8); Globulin 2.3 g/dL (1.6-3.3); Magnesium 1.8 mg/dL (1.5-2.4); Non-African American GFR(CKD) 96.4 (60.0-200.0); Phosphorus 2.6 mg/dL (2.4-5.1); Potassium 3.9 mmol/L (3.5-5.5); Total Bilirubin 0.2 mg/dL (0.3-1.2); Total Protein 4.8 g/dL (6.2-8.2)
[2021-01-07 12:31] LABS: Glucose,Whole Blood 101 mg/dL (75-99)
[2021-01-07] MEDS: CHOLESTYRAMINE (WITH SUGAR) 4 GM PACKET PO SCH ×3 (14:27→18:16)
[2021-01-07] MEDS: FAT EMULSION 20% 250 ML in EMPTY BAG 1 BAG IV SCH (14:29)
--- NOTE | 2021-01-07 16:05 | P.PN ---
Subjective Progress Note Date: 01/07/21 Principal diagnosis: Diarrhea Doing well. He states stools have been more formed. He is asking to advance his diet. No fevers. Objective - Vital Signs Vital signs: Vital Signs Temp 98.3 F 01/07/21 12:27 Pulse 57 L 01/07/21 12:27 Resp 16 01/07/21 12:27 BP 86/59 01/07/21 12:27 Pulse Ox 97 01/07/21 12:27 Intake & Output 01/06/21 01/07/21 01/07/21 18:59 06:59 18:59 Intake Total 1620 1740 Balance 1620 1740 Weight 69.853 kg Intake: Intake, IV Titration 1620 1020 Amount IV Fluid Continuation 1, 1020 000 ml @ 0 mls/hr IV .STK -[facility] Rx#:[id number] Mvi, Adult No.4 with Vit 1020 K 10 ml Trace (Conc-1Ml/ Dose) 1 ml Potassium Chloride 20 meq Sodium Chloride 4Meq/ml Vial 20 meq Magnesium Sulfate gm 1 gm In Amino Acid 5%- D20w+Lytes*E* 1,000 ml @ 85 mls/hr IV .BY DURATION [facility] Rx#:[id number] Sodium Chloride 0.9% 1, 600 000 ml @ 50 mls/hr IV . Q20H [facility] Rx#:[id number] Oral 720 Other: Voiding Method Toilet Toilet Toilet # Voids 3 1 - Exam General: non toxic, no distress, appears at stated age Derm: warm, dry Head: atraumatic, normocephalic, symmetric Eyes: EOMI, no lid lag, anicteric sclera Mouth: no lip lesion, mucous membranes dry Cardiovascular: S1S2 reg, no murmur, positive posterior tibial pulse bilateral, Lungs: CTA bilateral, no rhonchi, no rales , no accessory muscle use Abdominal: soft, nontender to palpation, no guarding, no appreciable organomegaly, liquid output through ostomy with protrusion of intestine through ostomy which is chronic per patient Ext: no gross muscle atrophy, no edema, no contractures Neuro: CN II-XI grossly intact, no focal neuro deficits Psych: Alert, oriented, appropriate affect - Labs CBC & Chem 7: 01/06/21 06:38 01/07/21 05:49 Labs: Abnormal Lab Results - Last 24 Hours (Table) 01/06/21 01/06/21 01/07/21 Range/Units 06:38 17:32 05:49 BUN/Creatinine Ratio 26.25 H 23.75 H (12.00-20.00) Ratio Glucose 120 H (70-110) mg/dL POC Glucose (mg/dL) 110 H (75-99) mg/dL Total Bilirubin 0.2 L (0.3-1.2) mg/dL Total Protein 4.8 L (6.2-8.2) g/dL Albumin 2.50 L (3.80-4.90) g/dL Albumin/Globulin Ratio 1.09 L (1.60-3.17) g/dL 01/07/21 01/07/21 Range/Units 06:01 12:27 BUN/Creatinine Ratio (12.00-20.00) Ratio Glucose (70-110) mg/dL POC Glucose (mg/dL) 113 H 101 H (75-99) mg/dL Total Bilirubin (0.3-1.2) mg/dL Total Protein (6.2-8.2) g/dL Albumin (3.80-4.90) g/dL Albumin/Globulin Ratio (1.60-3.17) g/dL Microbiology - Last 24 Hours (Table) 01/03/21 14:20 Stool Culture - Final Stool Assessment and Plan Plan: Intractable diarrhea -related to chemotherapy, 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 -Continue cholestyramine, clear liquids -Continue octreotide 150 TID. -Fibercon added for bulking -Lomitil increased to q4h on 01/06. -Budesnoide started 01/04 -Considering tincture of opium -TPN started 01/02 -Scope without inflammation -Fecal lactoferrin positive, stool culture negative -Cryptosporidium and gairdia negative Metastatic rectal adenocarcinoma -Oncology recommendations Severe protein calorie malnutrition secondary to recent weight loss -Supplementation -Dietitian recs Transaminitis, resolved Hypokalemia, resolved Hyponatremia and acute kidney injury secondary to dehydration, resolved Hypomagnesemia, resolved Patient unable to be discharged if he continues to have uncontrollable ostomy output despite maximal therapy. May need to consider outpatient arrangements for prolonged TPN. DVT prophylaxis: Lovenox Discussed with: Patient, nursing Anticipated discharge: 4-[address]: Home A total of 35 minutes was spent on the care of this complex patient more than 50% of the time was spent in counseling and care coordination.
[2021-01-07] MEDS: SODIUM CHLORIDE 0.9% 1,000 ML IV SCH (19:52)
[2021-01-08] MEDS: SALT AND SODA MOUTHWASH 1,000 ML PO SCH ×6 (00:23→23:49)
[2021-01-08 00:41] LABS: Glucose,Whole Blood 130 mg/dL (75-99)
[2021-01-08] MEDS: 1: MVI, ADULT NO.4 WITH VIT K 10 ML, TRACE (CONC-1ML/DOSE) 1 ML, POTASSIUM CHLORIDE 20 M IV SCH ×19 (02:39→14:22)
[2021-01-08] MEDS: OCTREOTIDE 100 MCG/ML INJ SQ SCH ×3 (02:40→18:37)
[2021-01-08] MEDS: DIPHENOX-ATROP 2.5-0.025 MG 1 EACH TAB PO SCH ×6 (02:58→20:43)
[2021-01-08 06:21] LABS: Glucose,Whole Blood 119 mg/dL (75-99)
[2021-01-08] MEDS: ENOXAPARIN 40 MG/0.4 ML SYRINGE SQ SCH (08:30)
[2021-01-08] MEDS: SODIUM CHLORIDE 0.9% 1,000 ML IV SCH (08:30)
[2021-01-08 09:46] LABS: Albumin 2.4 g/dL (3.80-4.90); Albumin/Globulin Ratio 1.2 (1.60-3.17); Anion Gap 1.2 mmol/L (4.00-12.00); BUN/Creat Ratio 22.86 Ratio (12.00-20.00); Calcium 7.5 mg/dL (8.7-10.3); Carbon Dioxide 28.8 mmol/L (21.6-31.8); Magnesium 1.9 mg/dL (1.5-2.4); Non-African American GFR(CKD) 101.9 (60.0-200.0); Potassium 3.6 mmol/L (3.5-5.5); Total Bilirubin 0.2 mg/dL (0.3-1.2); Total Protein 4.4 g/dL (6.2-8.2)
[2021-01-08] MEDS: CHOLESTYRAMINE (WITH SUGAR) 4 GM PACKET PO SCH ×3 (10:57→18:11)
[2021-01-08] MEDS: PETROLATUM, WHITE OINT 50 GM TUBE TOPICAL SCH ×2 (10:59→20:43)
[2021-01-08] MEDS: HYDROCORTISONE 1% CREAM 30 GM TUBE TOPICAL SCH ×2 (10:59→20:43)
[2021-01-08 12:23] LABS: Glucose,Whole Blood 113 mg/dL (75-99)
[2021-01-08] MEDS: POTAS-SOD-PHOS 278-164-250 MG 1 EACH PACKET PO SCH ×2 (13:32→21:22)
[2021-01-08] MEDS: FAT EMULSION 20% 250 ML in EMPTY BAG 1 BAG IV SCH (14:21)
--- NOTE | 2021-01-08 16:13 | P.PN ---
Subjective Progress Note Date: 01/08/21 Principal diagnosis: Diarrhea Patient doing well, stools is starting to form. No liquid stools seen in the bag. Objective - Vital Signs Vital signs: Vital Signs Temp 98.2 F 01/08/21 12:21 Pulse 53 L 01/08/21 12:21 Resp 16 01/08/21 12:21 BP 85/47 01/08/21 12:21 Pulse Ox 98 01/08/21 12:21 Intake & Output 01/07/21 01/08/21 01/08/21 18:59 06:59 18:59 Intake Total 2096 2569 Balance 2096 2569 Intake: Intake, IV Titration 2096 1739 Amount Fat Emulsion 20% 250 ml 120 In Empty Bag 1 bag @ 21 mls/hr IV DAILY@1400 [facility] Rx#:[id number] Mvi, Adult No.4 with Vit 680 1020 K 10 ml Trace (Conc-1Ml/ Dose) 1 ml Potassium Chloride 20 meq Sodium Chloride 4Meq/ml Vial 20 meq Magnesium Sulfate gm 1 gm In Amino Acid 5%- D20w+Lytes*E* 1,000 ml @ 85 mls/hr IV .BY DURATION [facility] Rx#:[id number] Potassium Chloride 20 meq 1017 Sodium Chloride 4Meq/ml Vial 20 meq Magnesium Sulfate gm 1 gm In Amino Acid 5%-D20w+Lytes*E* 1, 000 ml @ 85 mls/hr IV .BY DURATION [facility] Rx#: [id number] Sodium Chloride 0.9% 1, 400 600 000 ml @ 50 mls/hr IV . Q20H [facility] Rx#:[id number] Oral 830 Other: Voiding Method Toilet Toilet Toilet # Voids 1 4 - Exam General: non toxic, no distress, appears at stated age Derm: warm, dry Head: atraumatic, normocephalic, symmetric Eyes: EOMI, no lid lag, anicteric sclera Mouth: no lip lesion, mucous membranes dry Cardiovascular: S1S2 reg, no murmur, positive posterior tibial pulse bilateral, Lungs: CTA bilateral, no rhonchi, no rales , no accessory muscle use Abdominal: soft, nontender to palpation, no guarding, no appreciable organomegaly, liquid output through ostomy with protrusion of intestine through ostomy which is chronic per patient Ext: no gross muscle atrophy, no edema, no contractures Neuro: CN II-XI grossly intact, no focal neuro deficits Psych: Alert, oriented, appropriate affect - Labs CBC & Chem 7: 01/06/21 06:38 01/08/21 06:05 Labs: Abnormal Lab Results - Last 24 Hours (Table) 01/08/21 01/08/21 01/08/21 Range/Units 00:38 06:05 06:17 Anion Gap 1.20 L (4.00-12.00) mmol/L BUN/Creatinine Ratio 22.86 H (12.00-20.00) Ratio Glucose 124 H (70-110) mg/dL POC Glucose (mg/dL) 130 H 119 H (75-99) mg/dL Calcium 7.5 L (8.7-10.3) mg/dL Phosphorus 2.0 L (2.4-5.1) mg/dL Total Bilirubin 0.2 L (0.3-1.2) mg/dL Total Protein 4.4 L (6.2-8.2) g/dL Albumin 2.40 L (3.80-4.90) g/dL Albumin/Globulin Ratio 1.20 L (1.60-3.17) g/dL 01/08/21 Range/Units 12:19 Anion Gap (4.00-12.00) mmol/L BUN/Creatinine Ratio (12.00-20.00) Ratio Glucose (70-110) mg/dL POC Glucose (mg/dL) 113 H (75-99) mg/dL Calcium (8.7-10.3) mg/dL Phosphorus (2.4-5.1) mg/dL Total Bilirubin (0.3-1.2) mg/dL Total Protein (6.2-8.2) g/dL Albumin (3.80-4.90) g/dL Albumin/Globulin Ratio (1.60-3.17) g/dL Assessment and Plan Plan: Intractable diarrhea -related to chemotherapy, 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 -Continue cholestyramine, clear liquids -Continue octreotide 150 TID. -Fibercon added for bulking -Lomitil increased to q4h on 01/06. -Budesnoide started 01/04 -Considering tincture of opium -TPN started 01/02, will likely d/c tomorrow if he continues to tolerate diet. -Scope without inflammation -Fecal lactoferrin positive, stool culture negative -Cryptosporidium and gairdia negative Metastatic rectal adenocarcinoma -Oncology recommendations Severe protein calorie malnutrition secondary to recent weight loss -Supplementation -Dietitian recs Transaminitis, resolved Hypokalemia, resolved Hyponatremia and acute kidney injury secondary to dehydration, resolved Hypomagnesemia, resolved DVT prophylaxis: Lovenox Discussed with: Patient, nursing Anticipated discharge: [address]: Home A total of 35 minutes was spent on the care of this complex patient more than 50% of the time was spent in counseling and care coordination.
[2021-01-08 18:30] LABS: Glucose,Whole Blood 130 mg/dL (75-99)
[2021-01-08 23:43] LABS: Glucose,Whole Blood 120 mg/dL (75-99)
[2021-01-09] MEDS: DIPHENOX-ATROP 2.5-0.025 MG 1 EACH TAB PO SCH ×5 (01:51→21:50)
[2021-01-09] MEDS: OCTREOTIDE 100 MCG/ML INJ SQ SCH ×4 (02:21→21:44)
[2021-01-09] MEDS: 1: MVI, ADULT NO.4 WITH VIT K 10 ML, TRACE (CONC-1ML/DOSE) 1 ML, POTASSIUM CHLORIDE 20 M IV SCH ×14 (02:27→12:01)
[2021-01-09] MEDS: SALT AND SODA MOUTHWASH 1,000 ML PO SCH ×4 (06:00→21:44)
[2021-01-09 06:02] LABS: Glucose,Whole Blood 112 mg/dL (75-99)
--- NOTE | 2021-01-09 07:47 | P.PN ---
Subjective Progress Note Date: 01/08/21 Principal diagnosis: NISH, Dehydration Stools are thicker and improving, he was nervous to continue the q4 lomotil and refused 3-4 doses, which mixed with his slow advancement of diet and watery stool mix. However overall tolerating well and much improved. Objective - Vital Signs Vital signs: Vital Signs Temp 98.2 F 01/08/21 12:21 Pulse 53 L 01/08/21 12:21 Resp 16 01/08/21 12:21 BP 85/47 01/08/21 12:21 Pulse Ox 98 01/08/21 12:21 Intake & Output 01/07/21 01/08/21 01/08/21 18:59 06:59 18:59 Intake Total 2096 2569 Balance 2096 2569 Intake: Intake, IV Titration 2096 1739 Amount Fat Emulsion 20% 250 ml 120 In Empty Bag 1 bag @ 21 mls/hr IV DAILY@1400 COUNTS INCLUDE 234 BEDS AT THE [facility] Rx#:[id number] Mvi, Adult No.4 with Vit 680 1020 K 10 ml Trace (Conc-1Ml/ Dose) 1 ml Potassium Chloride 20 meq Sodium Chloride 4Meq/ml Vial 20 meq Magnesium Sulfate gm 1 gm In Amino Acid 5%- D20w+Lytes*E* 1,000 ml @ 85 mls/hr IV .BY DURATION COUNTS INCLUDE 234 BEDS AT THE [facility] Rx#:[id number] Potassium Chloride 20 meq 1017 Sodium Chloride 4Meq/ml Vial 20 meq Magnesium Sulfate gm 1 gm In Amino Acid 5%-D20w+Lytes*E* 1, 000 ml @ 85 mls/hr IV .BY DURATION [facility] Rx#: [id number] Sodium Chloride 0.9% 1, 400 600 000 ml @ 50 mls/hr IV . Q20H [facility] Rx#:[id number] Oral 830 Other: Voiding Method Toilet Toilet Toilet # Voids 1 4 - Exam - Constitutional General appearance: Present: no acute distress - EENT Eyes: Present: EOMI ENT: Present: hearing grossly normal, normal oropharynx - Respiratory Respiratory: bilateral: CTA - Cardiovascular Rhythm: regular Heart sounds: normal: S1, S2 - Gastrointestinal Gastrointestinal Comment(s): Right lower quadrant ostomy, with lpaste like output and minimal liquid General gastrointestinal: Present: soft - Integumentary Integumentary: Present: normal - Neurologic Neurologic: Present: CNII-XII intact - Musculoskeletal Musculoskeletal: Present: generalized weakness - Psychiatric Psychiatric: Present: A&O x's 3, appropriate affect - Labs CBC & Chem 7: 01/06/21 06:38 01/08/21 06:05 Labs: Abnormal Lab Results - Last 24 Hours (Table) 01/08/21 01/08/21 01/08/21 Range/Units 00:38 06:05 06:17 Anion Gap 1.20 L (4.00-12.00) mmol/L BUN/Creatinine Ratio 22.86 H (12.00-20.00) Ratio Glucose 124 H (70-110) mg/dL POC Glucose (mg/dL) 130 H 119 H (75-99) mg/dL Calcium 7.5 L (8.7-10.3) mg/dL Phosphorus 2.0 L (2.4-5.1) mg/dL Total Bilirubin 0.2 L (0.3-1.2) mg/dL Total Protein 4.4 L (6.2-8.2) g/dL Albumin 2.40 L (3.80-4.90) g/dL Albumin/Globulin Ratio 1.20 L (1.60-3.17) g/dL 01/08/21 Range/Units 12:19 Anion Gap (4.00-12.00) mmol/L BUN/Creatinine Ratio (12.00-20.00) Ratio Glucose (70-110) mg/dL POC Glucose (mg/dL) 113 H (75-99) mg/dL Calcium (8.7-10.3) mg/dL Phosphorus (2.4-5.1) mg/dL Total Bilirubin (0.3-1.2) mg/dL Total Protein (6.2-8.2) g/dL Albumin (3.80-4.90) g/dL Albumin/Globulin Ratio (1.60-3.17) g/dL Assessment and Plan Plan: Assessment and Plan Diarrhea This continues to be quite significant despite very aggressive antidiarrheal management, with octreotide at 100 mg subcutaneous fluid, Lomotil, and Questran. Patient is also essentially nothing by mouth, with very minor exceptions - Continue current aggressive management as above - TPN at this time for bowel rest - Budesomide to continue - Inflammatory process likely related to treatment although during scope no inflammation identified, sample of stool showed positive leukocytes. Regardless this appears consistent with a DJD defificiency given mucocytits, hand/foot and continued output. Rectal adenocarcinoma Treatment plan is currently on hold, pending resolution of current acute complaints. Malnutrition - Continue daily labs and TPN Plan: - Mild improvement - Decrease lomotil q6 - Continues Budesomide, Questran,
[2021-01-09] MEDS: SODIUM CHLORIDE 0.9% 1,000 ML IV SCH (08:06)
[2021-01-09] MEDS: ENOXAPARIN 40 MG/0.4 ML SYRINGE SQ SCH ×2 (08:07→08:10)
[2021-01-09] MEDS: POTAS-SOD-PHOS 278-164-250 MG 1 EACH PACKET PO SCH ×3 (08:10→21:42)
[2021-01-09] MEDS: PETROLATUM, WHITE OINT 50 GM TUBE TOPICAL SCH ×2 (08:12→21:44)
[2021-01-09] MEDS: HYDROCORTISONE 1% CREAM 30 GM TUBE TOPICAL SCH ×2 (08:12→21:44)
--- NOTE | 2021-01-09 09:05 | P.PN ---
Subjective Progress Note Date: 01/09/21 Principal diagnosis: Diarrhea patient seen and examined sitting up in his chair. He is on a regular diet. He is tolerating it well. States his bowel lumens have been thicker, more consistency. Not emptying as frequently. He denies any abdominal pain, nausea, or vomiting. Objective - Vital Signs Vital signs: Vital Signs Temp 98.0 F 01/09/21 05:00 Pulse 82 01/09/21 05:00 Resp 16 01/09/21 05:00 BP 130/84 01/09/21 05:00 Pulse Ox 95 01/09/21 05:00 Intake & Output 01/08/21 01/09/21 01/09/21 18:59 06:59 18:59 Intake Total 800 Balance 800 Intake: Oral 800 Other: Voiding Method Toilet Toilet Toilet # Voids 4 - Exam General appearance: The patient is alert, oriented, appears in no acute dis tress. HET: Head is normocephalic and atraumatic. Conjunctiva pink. Sclera anicteric. Neck: Supple without lymphadenopathy. Abdomen: Soft, nontender, nondistended with bowel sounds. Ostomy. No guarding or rigidity. Extremities: Normal skin color and turgor. No pedal edema Skin: No rashes, no jaundice Neurological: No focal deficits. Alert and oriented 3. - Labs CBC & Chem 7: 01/06/21 06:38 01/09/21 06:02 Labs: Abnormal Lab Results - Last 24 Hours (Table) 01/08/21 01/08/21 01/08/21 Range/Units 06:05 12:19 18:27 Anion Gap 1.20 L (4.00-12.00) mmol/L BUN/Creatinine Ratio 22.86 H (12.00-20.00) Ratio Glucose 124 H (70-110) mg/dL POC Glucose (mg/dL) 113 H 130 H (75-99) mg/dL Calcium 7.5 L (8.7-10.3) mg/dL Phosphorus 2.0 L (2.4-5.1) mg/dL Total Bilirubin 0.2 L (0.3-1.2) mg/dL Total Protein 4.4 L (6.2-8.2) g/dL Albumin 2.40 L (3.80-4.90) g/dL Albumin/Globulin Ratio 1.20 L (1.60-3.17) g/dL 01/08/21 01/09/21 Range/Units 23:42 06:00 Anion Gap (4.00-12.00) mmol/L BUN/Creatinine Ratio (12.00-20.00) Ratio Glucose (70-110) mg/dL POC Glucose (mg/dL) 120 H 112 H (75-99) mg/dL Calcium (8.7-10.3) mg/dL Phosphorus (2.4-5.1) mg/dL Total Bilirubin (0.3-1.2) mg/dL Total Protein (6.2-8.2) g/dL Albumin (3.80-4.90) g/dL Albumin/Globulin Ratio (1.60-3.17) g/dL Microbiology - Last 24 Hours (Table) 01/03/21 14:20 Stool Culture - Final Stool Assessment and Plan (1) Diarrhea Narrative/Plan: 60-year-old male with a history of adenocarcinoma diagnosed in 2018. Recently started on chemotherapy approximately 5 weeks ago which was stopped 2 weeks ago for persistent diarrhea. Patient had reported having up to 10 watery stools a day and to empty his [place] pack every 2-3 hours. Denied any blood. Patient states he had a colonoscopy in August 2020 at [facility]. He's had a recent EGD in August 2020 as a follow-up for a large gastric and is anastomotic ulcer. Findings included a 1 cm ulcer just distal to the gastric jejunal anastomosis, multiple superficial small ulcers in the small bowel, in a short segment of Amin's esophagus. C. difficile cytotoxin negative. Patient was started on Questran, Lomotil, and Sandostatin. Diarrhea continuing, spoke with Dr. Andrade from oncology, who is requesting colonoscopy to look for other possible etiology for diarrhea as patient has been status post chemotherapy 5 weeks now. Status post small bowel enteroscopy. Patient's stool is becoming more formed and less frequent. Current Visit: Yes Status: Acute Priority: High Code(s): R19.7 - DIARRHEA, UNSPECIFIED SNOMED Code(s): 43190629 (2) Rectal adenocarcinoma Narrative/Plan: Oncology following patient Current Visit: Yes Status: Chronic Priority: Medium Code(s): C20 - M ALIGNANT NEOPLASM OF RECTUM SNOMED Code(s): 744517224 Plan: 1. Supportive care 2. Continue Lomotil [id number], Questran, and Sandostatin, also on budesonide 3. Diet as tolerated, oncology managing 4. Continue antiemetics as needed 6. Continue medical management per primary team and hematology 7. TPN per primary medicine, consider weaning 8. Patient is status post small bowel enteroscopy Thank you for this consultation, we will sign off at this time. Dr. Jamison I agree with the dictator's note, documented as a scribe by Sabnia Can.
[2021-01-09 09:29] LABS: Albumin 2.5 g/dL (3.80-4.90); Magnesium 1.9 mg/dL (1.5-2.4); Phosphorus 3.3 mg/dL (2.4-5.1)
[2021-01-09 09:30] LABS: African American GFR (CKD) 111.7 (60.0-200.0); Anion Gap 1.5 mmol/L (4.00-12.00); Calcium 7.8 mg/dL (8.7-10.3); Carbon Dioxide 31.5 mmol/L (21.6-31.8); Non-African American GFR(CKD) 96.4 (60.0-200.0); Potassium 3.9 mmol/L (3.5-5.5)
[2021-01-09 11:32] LABS: Glucose,Whole Blood 101 mg/dL (75-99)
[2021-01-09] MEDS: CHOLESTYRAMINE (WITH SUGAR) 4 GM PACKET PO SCH ×3 (11:36→17:39)
--- NOTE | 2021-01-09 14:51 | P.PN ---
Subjective Progress Note Date: 01/09/21 Principal diagnosis: Diarrhea Doing well. No complaints. Stools are forming. No pain or fevers. No sob. Objective - Vital Signs Vital signs: Vital Signs Temp 98.7 F 01/09/21 11:45 Pulse 74 01/09/21 11:45 Resp 17 01/09/21 11:45 BP 99/54 01/09/21 11:45 Pulse Ox 97 01/09/21 11:45 Intake & Output 01/08/21 01/09/21 01/09/21 18:59 06:59 18:59 Intake Total 800 Balance 800 Weight 69.853 kg Intake: Oral 800 Other: Voiding Method Toilet Toilet Toilet # Voids 4 - Exam General: non toxic, no distress, appears at stated age Derm: warm, dry Head: atraumatic, normocephalic, symmetric Eyes: EOMI, no lid lag, anicteric sclera Mouth: no lip lesion, mucous membranes dry Cardiovascular: S1S2 reg, no murmur, positive posterior tibial pulse bilateral, Lungs: CTA bilateral, no rhonchi, no rales , no accessory muscle use Abdominal: soft, nontender to palpation, no guarding, no appreciable organomegaly, liquid output through ostomy with protrusion of intestine through ostomy which is chronic per patient Ext: no gross muscle atrophy, no edema, no contractures Neuro: CN II-XI grossly intact, no focal neuro deficits Psych: Alert, oriented, appropriate affect - Labs CBC & Chem 7: 01/06/21 06:38 01/09/21 06:02 Labs: Abnormal Lab Results - Last 24 Hours (Table) 01/08/21 01/08/21 01/09/21 Range/Units 18:27 23:42 06:00 Anion Gap (4.00-12.00) mmol/L Glucose (70-110) mg/dL POC Glucose (mg/dL) 130 H 120 H 112 H (75-99) mg/dL Calcium (8.7-10.3) mg/dL Albumin (3.80-4.90) g/dL Triglycerides (0.0-149.0) mg/dL 01/09/21 01/09/21 Range/Units 06:02 11:31 Anion Gap 1.50 L (4.00-12.00) mmol/L Glucose 125 H (70-110) mg/dL POC Glucose (mg/dL) 101 H (75-99) mg/dL Calcium 7.8 L (8.7-10.3) mg/dL Albumin 2.50 L (3.80-4.90) g/dL Triglycerides 156.0 H (0.0-149.0) mg/dL Microbiology - Last 24 Hours (Table) 01/03/21 14:20 Stool Culture - Final Stool Assessment and Plan Plan: Intractable diarrhea -related to chemotherapy, 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 Was on TPN for 1 week. -Continue cholestyramine, continue octreotide 150 TID, will wean down slowly per onc. Fibercon added for bulking. Will cut down lomotil to q8h 01/09. -Budesnoide started 01/04 -Scope of the small bowel by GI without inflammation -Fecal lactoferrin positive, stool culture negative, cryptosporidium and gairdia negative Metastatic rectal adenocarcinoma -Oncology recommendations Severe protein calorie malnutrition secondary to recent weight loss -Supplementation -Dietitian recs Transaminitis, resolved Hypokalemia, resolved Hyponatremia and acute kidney injury secondary to dehydration, resolved Hypomagnesemia, resolved DVT prophylaxis: Lovenox Discussed with: Patient, nursing, oncology [employer]. Anticipated discharge: [address]: Home A total of 35 minutes was spent on the care of this complex patient more than 50% of the time was spent in counseling and care coordination.
--- NOTE | 2021-01-09 14:55 | P.PN ---
Subjective Progress Note Date: 01/09/21 Principal diagnosis: NISH, Dehydration Improving and tolerating food. Slowly wean sandostatin. Objective - Vital Signs Vital signs: Vital Signs Temp 98.7 F 01/09/21 11:45 Pulse 74 01/09/21 11:45 Resp 17 01/09/21 11:45 BP 99/54 01/09/21 11:45 Pulse Ox 97 01/09/21 11:45 Intake & Output 01/08/21 01/09/21 01/09/21 18:59 06:59 18:59 Intake Total 800 Balance 800 Weight 69.853 kg Intake: Oral 800 Other: Voiding Method Toilet Toilet Toilet # Voids 4 - Exam - Constitutional General appearance: Present: no acute distress - EENT Eyes: Present: EOMI ENT: Present: hearing grossly normal, normal oropharynx - Respiratory Respiratory: bilateral: CTA - Cardiovascular Rhythm: regular Heart sounds: normal: S1, S2 - Gastrointestinal Gastrointestinal Comment(s): Right lower quadrant ostomy, with lpaste like output and minimal liquid General gastrointestinal: Present: soft - Integumentary Integumentary: Present: normal - Neurologic Neurologic: Present: CNII-XII intact - Musculoskeletal Musculoskeletal: Present: generalized weakness - Psychiatric Psychiatric: Present: A&O x's 3, appropriate affect - Labs CBC & Chem 7: 01/06/21 06:38 01/09/21 06:02 Labs: Abnormal Lab Results - Last 24 Hours (Table) 01/08/21 01/08/21 01/09/21 Range/Units 18:27 23:42 06:00 Anion Gap (4.00-12.00) mmol/L Glucose (70-110) mg/dL POC Glucose (mg/dL) 130 H 120 H 112 H (75-99) mg/dL Calcium (8.7-10.3) mg/dL Albumin (3.80-4.90) g/dL Triglycerides (0.0-149.0) mg/dL 01/09/21 01/09/21 Range/Units 06:02 11:31 Anion Gap 1.50 L (4.00-12.00) mmol/L Glucose 125 H (70-110) mg/dL POC Glucose (mg/dL) 101 H (75-99) mg/dL Calcium 7.8 L (8.7-10.3) mg/dL Albumin 2.50 L (3.80-4.90) g/dL Triglycerides 156.0 H (0.0-149.0) mg/dL Microbiology - Last 24 Hours (Table) 01/03/21 14:20 Stool Culture - Final Stool Assessment and Plan Plan: Assessment and Plan Diarrhea This continues to be quite significant despite very aggressive antidiarrheal management, with octreotide at 100 mg subcutaneous fluid, Lomotil, and Questran. Patient is also essentially nothing by mouth, with very minor exceptions - Continue current aggressive management as above - TPN at this time for bowel rest - Budesomide to continue - Inflammatory process likely related to treatment although during scope no inflammation identified, sample of stool showed positive leukocytes. Regardless this appears consistent with a DJD defificiency given mucocytits, hand/foot and continued output. Rectal adenocarcinoma Treatment plan is currently on hold, pending resolution of current acute complaints. Malnutrition - Continue daily labs and TPN Plan: - Mild improvement - Decrease lomotil q6 - Continues Budesomide, Questran, - Will slowly wean sandostatin over 23 days discussed with primary team Physician Attest: I have completed the full history and physical and agree with above dictation, dictated as a scribe
[2021-01-09 17:37] LABS: Glucose,Whole Blood 93 mg/dL (75-99)
[2021-01-10] MEDS: SALT AND SODA MOUTHWASH 1,000 ML PO SCH ×5 (01:36→19:54)
[2021-01-10] MEDS: 1: MVI, ADULT NO.4 WITH VIT K 10 ML, TRACE (CONC-1ML/DOSE) 1 ML, POTASSIUM CHLORIDE 20 M IV SCH ×7 (01:48)
[2021-01-10] MEDS: OCTREOTIDE 100 MCG/ML INJ SQ SCH ×3 (05:51→20:39)
[2021-01-10] MEDS: DIPHENOX-ATROP 2.5-0.025 MG 1 EACH TAB PO SCH ×4 (09:05→22:11)
[2021-01-10] MEDS: POTAS-SOD-PHOS 278-164-250 MG 1 EACH PACKET PO SCH ×3 (09:05→22:11)
[2021-01-10] MEDS: CHOLESTYRAMINE (WITH SUGAR) 4 GM PACKET PO SCH ×3 (09:05→19:54)
[2021-01-10 09:46] LABS: African American GFR (CKD) 111.7 (60.0-200.0); Anion Gap 4.5 mmol/L (4.00-12.00); BUN/Creat Ratio 16.25 Ratio (12.00-20.00); Calcium 7.8 mg/dL (8.7-10.3); Carbon Dioxide 30.5 mmol/L (21.6-31.8); Magnesium 1.4 mg/dL (1.5-2.4); Non-African American GFR(CKD) 96.4 (60.0-200.0); Phosphorus 3.2 mg/dL (2.4-5.1); Potassium 4.1 mmol/L (3.5-5.5)
[2021-01-10] MEDS: HYDROCORTISONE 1% CREAM 30 GM TUBE TOPICAL SCH ×2 (11:16→19:55)
[2021-01-10] MEDS: PETROLATUM, WHITE OINT 50 GM TUBE TOPICAL SCH ×2 (11:16→19:55)
--- NOTE | 2021-01-10 11:34 | P.PN ---
Subjective Progress Note Date: 01/10/21 Principal diagnosis: NISH, Dehydration Continues to improve Objective - Vital Signs Vital signs: Vital Signs Temp 98.2 F 01/10/21 08:49 Pulse 67 01/10/21 08:49 Resp 17 01/10/21 08:49 BP 101/58 01/10/21 08:58 Pulse Ox 97 01/10/21 08:49 Intake & Output 01/09/21 01/10/21 01/10/21 18:59 06:59 18:59 Intake Total 1025 Balance 1025 Weight 69.853 kg Intake: Intake, IV Titration 1025 Amount Mvi, Adult No.4 with Vit 425 K 10 ml Trace (Conc-1Ml/ Dose) 1 ml Potassium Chloride 20 meq Sodium Chloride 4Meq/ml Vial 20 meq Magnesium Sulfate gm 1 gm Potassium Phosphate 20 mmol In Amino Acid 5%- D20w+Lytes*E* 1,000 ml @ 85 mls/hr IV .BY DURATION [facility] Rx#:[id number] Sodium Chloride 0.9% 1, 600 000 ml @ 50 mls/hr IV . Q20H [facility] Rx#:[id number] Other: Voiding Method Toilet Toilet Toilet - Exam - Constitutional General appearance: Present: no acute distress - EENT Eyes: Present: EOMI ENT: Present: hearing grossly normal, normal oropharynx - Respiratory Respiratory: bilateral: CTA - Cardiovascular Rhythm: regular Heart sounds: normal: S1, S2 - Gastrointestinal Gastrointestinal Comment(s): Right lower quadrant ostomy, with lpaste like output and minimal liquid General gastrointestinal: Present: soft - Integumentary Integumentary: Present: normal - Neurologic Neurologic: Present: CNII-XII intact - Musculoskeletal Musculoskeletal: Present: generalized weakness - Psychiatric Psychiatric: Present: A&O x's 3, appropriate affect - Labs CBC & Chem 7: 01/10/21 05:48 01/10/21 05:48 Labs: Abnormal Lab Results - Last 24 Hours (Table) 01/10/21 Range/Units 05:48 Calcium 7.8 L (8.7-10.3) mg/dL Magnesium 1.4 L (1.5-2.4) mg/dL Microbiology - Last 24 Hours (Table) 01/03/21 14:20 Stool Culture - Final Stool Assessment and Plan Plan: Assessment and Plan Diarrhea This continues to be quite significant despite very aggressive antidiarrheal management, with octreotide at 100 mg subcutaneous fluid, Lomotil, and Questran. Patient is also essentially nothing by mouth, with very minor exceptions - Continue current aggressive management as above - TPN at this time for bowel rest - Budesomide to continue - Inflammatory process likely related to treatment although during scope no inflammation identified, sample of stool showed positive leukocytes. Regardless this appears consistent with a DJD defificiency given mucocytits, hand/foot and continued output. Rectal adenocarcinoma Treatment plan is currently on hold, pending resolution of current acute complaints. Malnutrition -mal increase PO intake - TPN D/c'd Plan: - Mild improvement - Decrease lomotil q6 - Continues Budesomide, Questran, - Will slowly wean sandostatin over 24 hours and plan for discharge soon discussed with primary team - Increase activity and PO intake
[2021-01-10 13:23] LABS: Anisocytosis Moderate; HCT 36.3 % (39.0-53.0); HGB 11.5 gm/dL (13.0-17.5); Hypochromasia Moderate; MCH 29.6 pg (25.0-35.0); MCHC 31.7 g/dL (31.0-37.0); MCV 93.3 fL (80.0-100.0); Macrocytosis Slight; Mean Platelet Volume 10.8; Platelet Count 274 k/uL (150-450); RBC 3.89 m/uL (4.30-5.90); RDW 20.4 % (11.5-15.5); WBC 5.7 k/uL (3.8-10.6)
[2021-01-10] MEDS: MAGNESIUM SULFATE-D5W PMX 1 GM in DEXTROSE/WATER 1 100ML.BAG IVPB SCH ×4 (13:24→17:32)
--- NOTE | 2021-01-10 17:06 | P.PN ---
Subjective Progress Note Date: 01/10/21 (delayed charting seen at 1215) Principal diagnosis: Diarrhea Patient is a 60-year-old male for history of stage IV rectal adenocarcinoma status post cholecystectomy currently undergoing treatment with Vectibix in addition to Xeloda, GERD, gastric ulcer, prostate disorder who presented to the emergency department at the direction of Dr. Andrade secondary to dehydration and intractable diarrhea. In the ER he underwent an extensive evaluation. He was tachycardic on arrival with a pulse of 109. Initial laboratory analysis showed sodium 129, BUN 31, creatinine 1.29, AST 66, and ALT 59. He is status post cycle #2 of his current regimen. This was dose reduced secondary to severe diarrhea during his initial treatment. He also stopped Xeloda early on 12/17 secondary to increasing diarrhea. He was admitted and started on IV fluids. Oncology was consulted. Initial C. diff was negative. Fecal lactoferrin was positive. Giardia and cryptosporidium were negative. Stool culture was negative. He continued to have high output. He was started on cholestyramine which did little to improve his symptoms, and he was started on octreotide on 12/30. He continued to have high output. His octreotide was increased without significant improvement. He was started on TPN 01/01/21. GI was consulted and scope was completed on 04/04 which demonstrated no signs of inflammation, no biopsies were taken. He was started on budenoside on 01/04. He continued to slowly improve. By 01/09 his octreotide was decreased, he was tolerating a regular diet and his output was much improved. Patient seen and examined at bedside. Still with through quickly when he is drinking liquids however it takes about 3 hours before he stopped his ostomy with solids. He is feeling much improved. General: non toxic, no distress, appears at stated age Derm: warm, dry Head: atraumatic, normocephalic, symmetric Eyes: EOMI, no lid lag, anicteric sclera Mouth: no lip lesion, mucous membranes moist Cardiovascular: S1S2 reg, no murmur, positive posterior tibial pulse bilateral, Lungs: CTA bilateral, no rhonchi, no rales , no accessory muscle use Abdominal: soft, nontender to palpation, no guarding, no appreciable organomegaly, liquid output through ostomy with protrusion of intestine through ostomy which is chronic per patient Ext: no gross muscle atrophy, no edema, no contractures Neuro: CN II-XI grossly intact, no focal neuro deficits Psych: Alert, oriented, appropriate affect Intractable diarrhea - Related to chemotherapy, 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 Metastatic rectal adenocarcinoma -Oncology recommendations Severe protein calorie malnutrition secondary to recent weight loss -Supplementation -Dietitian recs Transaminitis, resolved Hypokalemia, resolved Hyponatremia and acute kidney injury secondary to dehydration, resolved Hypomagnesemia, resolved Continue to monitor output. Continue to wean octreotide. Patient did have one fever overnight on 01/09. White blood cell count normal. Nursing alerted to page is febrile again. Case discussed with oncology if output continues to improve as octreotide decreased can likely be discharged home in a.m. DVT prophylaxis: Lovenox Discussed with: Patient, nursing Anticipated discharge: in am Anticipated discharge place: Home A total of 35 minutes was spent on the care of this complex patient more than 50% of the time was spent in counseling and care coordination. Objective - Vital Signs Vital signs: Vital Signs Temp 98.4 F 01/10/21 14:00 Pulse 69 01/10/21 14:00 Resp 16 01/10/21 14:00 BP 113/63 01/10/21 14:00 Pulse Ox 99 01/10/21 14:00 Intake & Output 01/09/21 01/10/21 01/10/21 18:59 06:59 18:59 Intake Total 1025 Balance 1025 Weight 69.853 kg Intake: Intake, IV Titration 1025 Amount Mvi, Adult No.4 with Vit 425 K 10 ml Trace (Conc-1Ml/ Dose) 1 ml Potassium Chloride 20 meq Sodium Chloride 4Meq/ml Vial 20 meq Magnesium Sulfate gm 1 gm Potassium Phosphate 20 mmol In Amino Acid 5%- D20w+Lytes*E* 1,000 ml @ 85 mls/hr IV .BY DURATION [facility] Rx#:[id number] Sodium Chloride 0.9% 1, 600 000 ml @ 50 mls/hr IV . Q20H [facility] Rx#:[id number] Other: Voiding Method Toilet Toilet Toilet - Labs CBC & Chem 7: 01/10/21 05:48 01/10/21 05:48 Labs: Abnormal Lab Results - Last 24 Hours (Table) 01/10/21 01/10/21 Range/Units 05:48 05:48 RBC 3.89 L (4.30-5.90) m/uL Hgb 11.5 L (13.0-17.5) gm/dL Hct 36.3 L (39.0-53.0) % RDW 20.4 H (11.5-15.5) % Calcium 7.8 L (8.7-10.3) mg/dL Magnesium 1.4 L (1.5-2.4) mg/dL
[2021-01-10] MEDS: SODIUM CHLORIDE 0.9% 1,000 ML IV SCH (19:48)
[2021-01-11] MEDS: ACETAMINOPHEN TAB 325 MG TAB PO PRN ×2 (00:20→04:44)
[2021-01-11] MEDS: OCTREOTIDE 100 MCG/ML INJ SQ SCH ×4 (00:38→23:48)
[2021-01-11] MEDS: SALT AND SODA MOUTHWASH 1,000 ML PO SCH ×6 (00:38→23:51)
[2021-01-11] MEDS: SODIUM CHLORIDE 0.9% 1,000 ML IV SCH (00:40)
[2021-01-11 06:46] LABS: Magnesium 2.1 mg/dL (1.6-2.3); Phosphorus 3.1 mg/dL (2.5-4.5)
[2021-01-11] MEDS: ENOXAPARIN 40 MG/0.4 ML SYRINGE SQ SCH (08:17)
[2021-01-11] MEDS: DIPHENOX-ATROP 2.5-0.025 MG 1 EACH TAB PO SCH ×4 (08:17→21:18)
[2021-01-11] MEDS: POTAS-SOD-PHOS 278-164-250 MG 1 EACH PACKET PO SCH ×3 (08:18→21:21)
[2021-01-11] MEDS: CHOLESTYRAMINE (WITH SUGAR) 4 GM PACKET PO SCH ×3 (08:20→17:25)
[2021-01-11] MEDS: HYDROCORTISONE 1% CREAM 30 GM TUBE TOPICAL SCH ×2 (08:21→21:20)
[2021-01-11] MEDS: PETROLATUM, WHITE OINT 50 GM TUBE TOPICAL SCH ×2 (08:21→21:20)
[2021-01-11] MEDS: MORPHINE SULFATE 4 MG/ML SYRINGE IV PRN ×2 (08:24→12:22)
--- NOTE | 2021-01-11 11:21 | P.PN ---
Subjective Progress Note Date: 01/11/21 Principal diagnosis: NISH, Dehydration Bowels continue to improve, Xray of the neck with DJD. Objective - Vital Signs Vital signs: Vital Signs Temp 97.7 F 01/11/21 07:44 Pulse 59 L 01/11/21 08:00 Resp 16 01/11/21 08:00 BP 131/61 01/11/21 07:44 Pulse Ox 98 01/11/21 07:44 Intake & Output 01/10/21 01/11/21 01/11/21 18:59 06:59 18:59 Intake Total 640 120 Output Total 50 260 Balance 640 70 -260 Weight 69.853 kg Intake: Intake, IV Titration 400 Amount Magnesium Sulfate-D5w Pmx 400 1 gm In Dextrose/Water 1 100ml.bag @ 100 mls/hr IVPB Q1H [facility] Rx#: [id number] Oral 240 120 Output: Urine 260 Stool 50 Other: Voiding Method Toilet Toilet Urinal - Exam - Constitutional General appearance: Present: no acute distress - EENT Eyes: Present: EOMI ENT: Present: hearing grossly normal, normal oropharynx - Respiratory Respiratory: bilateral: CTA - Cardiovascular Rhythm: regular Heart sounds: normal: S1, S2 - Gastrointestinal Gastrointestinal Comment(s): Right lower quadrant ostomy, with lpaste like output and minimal liquid General gastrointestinal: Present: soft - Integumentary Integumentary: Present: normal - Neurologic Neurologic: Present: CNII-XII intact - Musculoskeletal Musculoskeletal: Present: generalized weakness - Psychiatric Psychiatric: Present: A&O x's 3, appropriate affect - Labs CBC & Chem 7: 01/12/21 06:50 01/12/21 06:50 Labs: Abnormal Lab Results - Last 24 Hours (Table) 01/10/21 Range/Units 05:48 RBC 3.89 L (4.30-5.90) m/uL Hgb 11.5 L (13.0-17.5) gm/dL Hct 36.3 L (39.0-53.0) % RDW 20.4 H (11.5-15.5) % Assessment and Plan Plan: Assessment and Plan Diarrhea (Resolved - Continue current aggressive management as above - Budesomide to continue - Continue wean Angela - Inflammatory process likely related to treatment although during scope no inflammation identified, sample of stool showed positive leukocytes. Regardless this appears consistent with a DJD defificiency given mucocytits, hand/foot and continued output. Rectal adenocarcinoma Treatment plan is currently on hold, pending resolution of current acute complaints. Malnutrition -mal increase PO intake - TPN D/c'd Plan: - Mild improvement - Decrease lomotil q6 - Continues Budesomide, [place], - Will cont slow wean sandostatin over 24 hours and plan for discharge soon discussed with primary team - Increase activity and PO intake - Cervical Spine Xray reviewed and consistent with DJD - Support care Hoping discharge soon Physician Attest: I have completed the full history and physical and agree with above dictation, dictated as a scribe.
[2021-01-11] MEDS ORDERED: CYCLOBENZAPRINE 5 MG TAB PO PRN (12:18)
--- NOTE | 2021-01-11 13:53 | CT ---
EXAMINATION TYPE: CT cervical spine wo con DATE OF EXAM: 01/11/2021 COMPARISON: None HISTORY: severe neck pain, no injury, history of colon CA CT DLP: 399.3 mGycm CONTRAST: None CT of the cervical spine is performed in the axial plane at 2 mm thick sections. Reconstructed image s in the coronal, and sagittal plane are reviewed on the computer. No acute fractures are evident. No suspicious lytic lesions. Vertebral body alignment is straightened. There is loss of disc height C3-4 and C5-6 and C6-7. Vertebral body heights are preserved. No spinal canal stenosis is evident Uncovertebral joint hypertrophy is contributing to severe bilateral foraminal stenosis C5-6 C6-7. Lauri tral endplate spurs present at C7 with mild anterior thecal sac compression. IMPRESSIONS: 1. Uncovertebral joint hypertrophy contributing to severe foraminal stenosis bilaterally at C5-6 an d C6-7. 2. Degenerative disc changes predominantly at C3-4, C5-6, C6-7
[2021-01-11] MEDS: HYDROcodone/APAP 7.5-325MG 1 EACH TAB PO PRN ×2 (17:24→22:05)
[2021-01-12 04:34] VITALS: RESP 16
[2021-01-12] MEDS: SALT AND SODA MOUTHWASH 1,000 ML PO SCH ×4 (05:35→21:07)
--- NOTE | 2021-01-12 05:45 | P.PN ---
Subjective Progress Note Date: 01/11/21 (danna charting patient seen 01/11 at 1200) Principal diagnosis: Diarrhea Patient is a 60-year-old male for history of stage IV rectal adenocarcinoma status post cholecystectomy currently undergoing treatment with Vectibix in addition to Xeloda, GERD, gastric ulcer, prostate disorder who presented to the emergency department at the direction of Dr. Andrade secondary to dehydration and intractable diarrhea. In the ER he underwent an extensive evaluation. He was tachycardic on arrival with a pulse of 109. Initial laboratory analysis showed sodium 129, BUN 31, creatinine 1.29, AST 66, and ALT 59. He is status post cycle #2 of his current regimen. This was dose reduced secondary to severe diarrhea during his initial treatment. He also stopped Xeloda early on 12/17 secondary to increasing diarrhea. He was admitted and started on IV fluids. Oncology was consulted. Initial C. diff was negative. Fecal lactoferrin was positive. Giardia and cryptosporidium were negative. Stool culture was negative. He continued to have high output. He was started on cholestyramine which did little to improve his symptoms, and he was started on octreotide on 12/30. He continued to have high output. His octreotide was increased without significant improvement. He was started on TPN 01/01/21. GI was consulted and scope was completed on 04/04 which demonstrated no signs of inflammation, no biopsies were taken. He was started on budenoside on 01/04. He continued to slowly improve. By 01/09 his octreotide was decreased, he was tolerating a regular diet and his output was much improved. On 01/11 he awoke with neck pain. Patient seen and examined at bedside. He complains of pain in the center of his neck. He denies any known injuries/falls. His physician in the hospital bed. He denies any numbness or tingling on his bilateral arms. He denies any arm weakness. He denies any chest pain or shortness of breath. He states the pain is worse with movement of his neck. General: non toxic, moderate distress secondary to pain, appears at stated age Derm: warm, dry Head: atraumatic, normocephalic, symmetric Eyes: EOMI, no lid lag, anicteric sclera Mouth: no lip lesion, mucous membranes moist Cardiovascular: S1S2 reg, no murmur, positive posterior tibial pulse bilateral, Lungs: Decreased breath sounds bilateral, no rhonchi, no rales , no accessory muscle use Abdominal: soft, nontender to palpation, no guarding, no appreciable organomegaly, ostomy with formed output, protrusion of the intestines and ostomy which is normal per patient Ext: no gross muscle atrophy, no edema, no contractures Neuro: CN II-XI grossly intact, no focal neuro deficits Psych: Alert, oriented, appropriate affect Intractable neck pain -CT demonstrated joint hypertrophy with severe foraminal stenosis bilaterally at C5 6 and C6 7 with degenerative changes at C3 4, C5 6, C6 7 -[facility], morphine for pain control -If no improvement in a.m. consider systemic steroids and orthospine consultatio n. 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 Metastatic rectal adenocarcinoma -Oncology recommendations Severe protein calorie malnutrition secondary to recent weight loss -Supplementation -Dietitian recs Transaminitis, resolved Hypokalemia, resolved Hyponatremia and acute kidney injury secondary to dehydration, resolved Hypomagnesemia, resolved Continue to monitor output. Continue to wean octreotide. Patient did have one fever overnight on 01/09. White blood cell count normal. Nursing alerted to page is febrile again. Case discussed with oncology if output continues to improve as octreotide decreased can likely be discharged home in a.m. DVT prophylaxis: Lovenox Discussed with: Patient, nursing Anticipated discharge: in am Anticipated discharge place: Home A total of 35 minutes was spent on the care of this complex patient more than 50% of the time was spent in counseling and care coordination. Objective - Vital Signs Vital signs: Vital Signs Temp 98.5 F 01/12/21 04:32 Pulse 63 01/12/21 04:32 Resp 16 01/12/21 04:32 BP 115/67 01/12/21 04:32 Pulse Ox 98 01/12/21 04:32 Intake & Output 01/11/21 01/11/21 01/12/21 06:59 18:59 06:59 Intake Total 120 Output Total 50 260 Balance 70 -260 Weight 69.853 kg Intake: Oral 120 Output: Urine 260 Stool 50 Other: Voiding Method Toilet Urinal Urinal # Voids 2 - Labs CBC & Chem 7: 01/10/21 05:48 01/10/21 05:48
[2021-01-12 07:16] LABS: ALT 18 U/L (4-49); AST 28 U/L (17-59); African American GFR (CKD) >90 (>60 ml/min/1.73 sqM); Albumin 2.3 g/dL (3.5-5.0); Alkaline Phosphatase 98 U/L (38-126); Anion Gap 1 mmol/L; Blood Urea Nitrogen 11 mg/dL (9-20); Calcium 8.1 mg/dL (8.4-10.2); Carbon Dioxide 31 mmol/L (22-30); Chloride 103 mmol/L (98-107); Globulin 2.3 g/dL; Glucose 99 mg/dL (74-99); Magnesium 1.6 mg/dL (1.6-2.3); Non-African American GFR(CKD) >90 (>60 ml/min/1.73 sqM); Potassium 3.9 mmol/L (3.5-5.1); Sodium 135 mmol/L (137-145); Total Bilirubin 0.4 mg/dL (0.2-1.3); Total Protein 4.6 g/dL (6.3-8.2)
[2021-01-12 07:30] LABS: Anisocytosis Moderate; HCT 34.9 % (39.0-53.0); Hypochromasia Slight; MCHC 31.4 g/dL (31.0-37.0); MCV 92.3 fL (80.0-100.0); Macrocytosis Slight; Mean Platelet Volume 8.2; Platelet Count 336 k/uL (150-450); RBC 3.77 m/uL (4.30-5.90); WBC 7.2 k/uL (3.8-10.6)
[2021-01-12] MEDS: DIPHENOX-ATROP 2.5-0.025 MG 1 EACH TAB PO SCH ×4 (07:44→21:06)
[2021-01-12] MEDS: CHOLESTYRAMINE (WITH SUGAR) 4 GM PACKET PO SCH ×3 (07:44→17:55)
[2021-01-12] MEDS: ENOXAPARIN 40 MG/0.4 ML SYRINGE SQ SCH (07:44)
[2021-01-12] MEDS: BUDESONIDE ER 3 MG CAPSULE.ER PO SCH (07:45)
[2021-01-12] MEDS: POTAS-SOD-PHOS 278-164-250 MG 1 EACH PACKET PO SCH ×3 (07:45→21:06)
[2021-01-12] MEDS: PETROLATUM, WHITE OINT 50 GM TUBE TOPICAL SCH ×2 (07:46→21:09)
[2021-01-12] MEDS: HYDROCORTISONE 1% CREAM 30 GM TUBE TOPICAL SCH ×2 (07:47→21:09)
[2021-01-12] MEDS: SODIUM CHLORIDE 0.9% 1,000 ML IV SCH ×3 (07:47→23:17)
[2021-01-12] MEDS: ACETAMINOPHEN TAB 325 MG TAB PO PRN (07:59)
[2021-01-12] MEDS ORDERED: KETOROLAC 15 MG/ML 1 ML VIAL IVP STA (10:31)
--- NOTE | 2021-01-12 16:06 | P.PN ---
Subjective Progress Note Date: 01/12/21 (delayed charting seen at 1130) Principal diagnosis: Diarrhea Patient is a 60-year-old male for history of stage IV rectal adenocarcinoma status post cholecystectomy currently undergoing treatment with Vectibix in addition to Xeloda, GERD, gastric ulcer, prostate disorder who presented to the emergency department at the direction of Dr. Andrade secondary to dehydration and intractable diarrhea. In the ER he underwent an extensive evaluation. He was tachycardic on arrival with a pulse of 109. Initial laboratory analysis showed sodium 129, BUN 31, creatinine 1.29, AST 66, and ALT 59. He is status post cycle #2 of his current regimen. This was dose reduced secondary to severe diarrhea during his initial treatment. He also stopped Xeloda early on 12/17 secondary to increasing diarrhea. He was admitted and started on IV fluids. Oncology was consulted. Initial C. diff was negative. Fecal lactoferrin was positive. Giardia and cryptosporidium were negative. Stool culture was negative. He continued to have high output. He was started on cholestyramine which did little to improve his symptoms, and he was started on octreotide on 12/30. He continued to have high output. His octreotide was increased without significant improvement. He was started on TPN 01/01/21. GI was consulted and scope was completed on 04/04 which demonstrated no signs of inflammation, no biopsies were taken. He was started on budenoside on 01/04. He continued to slowly improve. By 01/09 his octreotide was decreased, he was tolerating a regular diet and his output was much improved. On 01/11 he awoke with neck pain. CT neck showed Uncovertebral joint hypertrophy treating his severe foraminal stenosis at C5/6 and C6/7 with degenerative disc changes at C3-4, C5-C6, and C6- 7. He was not having any radicular symptoms. He was started on Toradol, Flexeril, and [place] for pain control. Patient seen and examined at bedside. pain is slightly better. Still having difficulty turning his neck. He denies any weakness in his arms, numbness or tingling. Reports contact foot ball and heavy lifting at work. He is aware to look for numbness or tingling in his arm and arm weakness or pain. He will let us know. General: non toxic, moderate distress secondary to pain, appears at stated age Derm: warm, dryrotating left and right. Head: atraumatic, normocephalic, symmetric Eyes: EOMI, no lid lag, anicteric sclera Mouth: no lip lesion, mucous membranes moist Cardiovascular: S1S2 reg, no murmur, positive posterior tibial pulse bilateral, Lungs: Decreased breath sounds bilateral, no rhonchi, no rales , no accessory muscle use Abdominal: soft, nontender to palpation, no guarding, no appreciable organomegaly, ostomy with formed output, protrusion of the intestines and ostomy which is normal per patient Ext: no gross muscle atrophy, no edema, no contractures Neuro: CN II-XI grossly intact, no focal neuro deficits neck: No pinpoint tenderness over spinous processes, able Psych: Alert, oriented, appropriate affect Intractable neck pain due to severe degenerative disc disease -CT demonstrated joint hypertrophy with severe foraminal stenosis bilaterally at C5 6 and C6 7 with degenerative changes at C3 4, C5 6, C6 7 -[place], morphine for pain control -If no improvement in a.m. consider systemic steroids and orthospine consultation. 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 Metastatic rectal adenocarcinoma -Oncology recommendations Severe protein calorie malnutrition secondary to recent weight loss -Supplementation -Dietitian recs Transaminitis, resolved Hypokalemia, resolved Hyponatremia and acute kidney injury secondary to dehydration, resolved Hypomagnesemia, resolved DVT prophylaxis: Lovenox Discussed with: Patient, nursing Anticipated discharge: in am Anticipated discharge place: Home A total of 25 minutes was spent on the care of this complex patient more than 50% of the time was spent in counseling and care coordination. Objective - Vital Signs Vital signs: Vital Signs Temp 98.1 F 01/12/21 12:58 Pulse 63 01/12/21 12:58 Resp 16 01/12/21 12:58 BP 90/48 01/12/21 12:58 Pulse Ox 97 01/12/21 12:58 Intake & Output 01/11/21 01/12/21 01/12/21 18:59 06:59 18:59 Output Total 260 50 Balance -260 -50 Weight 69.853 kg Output: Urine 260 Stool 50 Other: Voiding Method Urinal Urinal Urinal # Voids 2 2 1 - Labs CBC & Chem 7: 01/12/21 06:50 01/12/21 06:50 Labs: Abnormal Lab Results - Last 24 Hours (Table) 01/12/21 01/12/21 Range/Units 06:50 06:50 RBC 3.77 L (4.30-5.90) m/uL Hgb 11.0 L (13.0-17.5) gm/dL Hct 34.9 L (39.0-53.0) % RDW 20.0 H (11.5-15.5) % Sodium 135 L (137-145) mmol/L Carbon Dioxide 31 H (22-30) mmol/L Calcium 8.1 L (8.4-10.2) mg/dL Total Protein 4.6 L (6.3-8.2) g/dL Albumin 2.3 L (3.5-5.0) g/dL
[2021-01-12] MEDS: KETOROLAC 15 MG/ML 1 ML VIAL IVP PRN (21:05)
[2021-01-13] MEDS: SALT AND SODA MOUTHWASH 1,000 ML PO SCH ×3 (00:38→10:12)
[2021-01-13] MEDS: MORPHINE SULFATE 4 MG/ML SYRINGE IV PRN (02:14)
[2021-01-13 04:47] VITALS: BP 103/62; PULSE 82; TEMP 97.9
[2021-01-13] MEDS: KETOROLAC 15 MG/ML 1 ML VIAL IVP PRN (09:00)
[2021-01-13] MEDS: CHOLESTYRAMINE (WITH SUGAR) 4 GM PACKET PO SCH (09:01)
[2021-01-13] MEDS: HYDROCORTISONE 1% CREAM 30 GM TUBE TOPICAL SCH (09:01)
[2021-01-13] MEDS: DIPHENOX-ATROP 2.5-0.025 MG 1 EACH TAB PO SCH ×2 (09:01→12:20)
[2021-01-13] MEDS: ENOXAPARIN 40 MG/0.4 ML SYRINGE SQ SCH (09:01)
[2021-01-13] MEDS: PETROLATUM, WHITE OINT 50 GM TUBE TOPICAL SCH (09:01)
[2021-01-13] MEDS: POTAS-SOD-PHOS 278-164-250 MG 1 EACH PACKET PO SCH (09:01)
[2021-01-13] MEDS: BUDESONIDE ER 3 MG CAPSULE.ER PO SCH (09:02)
[2021-01-13] MEDS: MAGNESIUM SULFATE-D5W PMX 1 GM in DEXTROSE/WATER 1 100ML.BAG IVPB SCH ×4 (09:02→12:20)
--- NOTE | 2021-01-13 13:04 | P.PN ---
Subjective Progress Note Date: 01/13/21 Principal diagnosis: NISH, Dehydration Hoping we can plan for discharge soon as he is improving. Will need to continue budesomide for 3 months Objective - Vital Signs Vital signs: Vital Signs Temp 97.9 F 01/13/21 04:47 Pulse 82 01/13/21 04:47 Resp 16 01/13/21 04:47 BP 103/62 01/13/21 04:47 Pulse Ox 97 01/13/21 04:47 Intake & Output 01/12/21 01/13/21 01/13/21 18:59 06:59 18:59 Intake Total 400 600 Output Total 50 Balance 350 600 Intake: Intake, IV Titration 400 600 Amount Sodium Chloride 0.9% 1, 400 600 000 ml @ 50 mls/hr IV . Q20H [facility] Rx#:[id number] Output: Stool 50 Other: Voiding Method Urinal Toilet Urinal # Voids 1 2 # Bowel Movements 0 - Exam - Constitutional General appearance: Present: no acute distress - EENT Eyes: Present: EOMI ENT: Present: hearing grossly normal, normal oropharynx - Respiratory Respiratory: bilateral: CTA - Cardiovascular Rhythm: regular Heart sounds: normal: S1, S2 - Gastrointestinal Gastrointestinal Comment(s): Right lower quadrant ostomy, with lpaste like output and minimal liquid General gastrointestinal: Present: soft - Integumentary Integumentary: Present: normal - Neurologic Neurologic: Present: CNII-XII intact - Musculoskeletal Musculoskeletal: Present: generalized weakness - Psychiatric Psychiatric: Present: A&O x's 3, appropriate affect - Labs CBC & Chem 7: 01/12/21 06:50 01/12/21 06:50 Assessment and Plan Plan: Assessment and Plan Diarrhea (Resolved - Continue current aggressive management as above - Budesomide to continue - Continue wean Angela - Inflammatory process likely related to treatment although during scope no inflammation identified, sample of stool showed positive leukocytes. Regardless this appears consistent with a DJD defificiency given mucocytits, hand/foot and continued output. Rectal adenocarcinoma Treatment plan is currently on hold, pending resolution of current acute complaints. Malnutrition -mal increase PO intake - TPN D/c'd Plan: - Mild improvement - Decrease lomotil q6 - Continues Budesomide, Questran, - Will cont slow wean sandostatin over 24 hours and plan for discharge soon discussed with primary team - Increase activity and PO intake - Cervical Spine Xray reviewed and consistent with DJD - Support care Hoping discharge soon continue adelina at discharge and contil
--- NOTE | 2021-01-13 16:24 | P.DS ---
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 Andrade secondary to dehydration and intractable diarrhea. In the ER he underwent an extensive evaluation. He was tachycardic on arrival with a pulse of 109. Initial laboratory analysis showed sodium 129, BUN 31, creatinine 1.29, AST 66, and ALT 59. He is status post cycle #2 of his current regimen. This was dose reduced secondary to severe diarrhea during his initial treatment. He also stopped Xeloda early on 12/17 secondary to increasing diarrhea. He was admitted and started on IV fluids. Oncology was consulted. Initial C. diff was negative. Fecal lactoferrin was positive. Giardia and cryptosporidium were negative. Stool culture was neg ative. He continued to have high output. He was started on cholestyramine which did little to improve his symptoms, and he was started on octreotide on 12/30. He continued to have high output. His octreotide was increased without significant improvement. He was started on TPN 01/01/21. GI was consulted and scope was completed on 04/04 which demonstrated no signs of inflammation, no biopsies were taken. He was started on budenoside on 01/04. He continued to slowly improve. By 01/09 his octreotide was decreased, he was tolerating a regular diet and his output was much improved. On 01/11 he awoke with neck pain. CT neck showed Uncovertebral joint hypertrophy treating his severe foraminal stenosis at C5/6 and C6/7 with degenerative disc changes at C3-4, C5-C6, and C6- 7. He was not having any radicular symptoms. He was started on Toradol, Flexeril, and [place] for pain control. His pain improved and is determined stable for discharge home. Patient seen and examined at bedside. Slightly improved. Able to get some sleep last night. No nausea. No vomiting. Output remains low after being off octreotide for greater than 24 hours. Vital signs reviewed and stable. General: non toxic, no distress, appears at stated age Derm: warm, dry Head: atraumatic, normocephalic, symmetric Eyes: EOMI, no lid lag, anicteric sclera Mouth: no lip lesion, mucus membranes moist Cardiovascular: S1S2 reg, no murmur, positive posterior tibial pulse bilateral, Lungs: CTA bilateral, no rhonchi, no rales , no accessory muscle use Abdominal: soft, nontender to palpation, no guarding, no appreciable organ omegaly. Ostomy output with formed stool Ext: no gross muscle atrophy, no edema, no contractures Neuro: CN II-XI grossly intact, no focal neuro deficits Psych: Alert, oriented, appropriate affect A total of 45 minutes of time were spent preparing this complex discharge summary . Patient Condition at Discharge: Stable Plan - Discharge Summary Discharge Rx Participant: Yes New Discharge Prescriptions: New Budesonide [Budesonide ER] 9 mg PO DAILY #30 tabdr...er Diphenox-Atrop 2.5-0.025 mg [Lomotil] 1 each PO QID #60 tab Cholestyramine (with Sugar) [Questran Packet] 4 gm PO TID BETWEEN MEALS #90 packet Cyclobenzaprine [Flexeril] 5 mg PO TID PRN #15 tab PRN Reason: Muscle Spasm Hydrocortisone Cream [Hydrocortisone 1% Cream] 1 applic TOPICAL BID 7 Days #1 tube HYDROcodone/APAP 7.5-325MG [[place] 7.5-325] 1 each PO Q6H PRN #21 tab PRN Reason: Pain Magnesium Oxide [Mag-Ox] 400 mg PO DAILY #30 tablet Continue Pantoprazole Sodium [Protonix] 40 mg PO DAILY Discontinued Tamsulosin [Flomax] 0.4 mg PO HS Diphenox-Atrop 2.5-0.025 mg [Lomotil] 1 tab PO Q6H PRN PRN Reason: Diarrhea Loperamide HCl [Imodium A-D] 2 mg PO Q6H PRN PRN Reason: Diarrhea Discharge Medication List Pantoprazole Sodium [Protonix] 40 mg PO DAILY 10/17/20 [History] Budesonide [Budesonide ER] 9 mg PO DAILY #30 tabdr...er 01/10/21 [Rx] Cholestyramine (with Sugar) [Questran Packet] 4 gm PO TID BETWEEN MEALS #90 packet 01/10/21 [Rx] Diphenox-Atrop 2.5-0.025 mg [Lomotil] 1 each PO QID #60 tab 01/10/21 [Rx] Cyclobenzaprine [Flexeril] 5 mg PO TID PRN #15 tab 01/13/21 [Rx] HYDROcodone/APAP 7.5-325MG [[place] 7.5-325] 1 each PO Q6H PRN #21 tab 01/13/21 [Rx] Hydrocortisone Cream [Hydrocortisone 1% Cream] 1 applic TOPICAL BID 7 Days #1 tube 01/13/21 [Rx] Magnesium Oxide [Mag-Ox] 400 mg PO DAILY #30 tablet 01/13/21 [Rx] Follow up Appointment(s)/Referral(s): Francis Andrade MD [STAFF PHYSICIAN] - 01/18/21 2:15 pm Val Sue NPC [Primary Care Provider] - 01/19/21 9:30 am Patient Instructions/Handouts: Dehydration (DC), Acute Kidney Injury (DC), Malnutrition (DC), Parenteral Nutrition (DC) Activity/Diet/Wound Care/Special Instructions: Activity: as tolerated Diet: regular Discharge Disposition: HOME SELF-CARE
== END 2021-01-13 14:10 | disposition home or self-care (01) | DRG 642 ==
LOC: EC 17:06 → 5NMEDONC 19:34
PROVIDERS: ADMIT Internal Medicine; ATTEND Internal Medicine
PROC: 3E0436Z Introduction of Nutritional Substance into Central Vein, Percutaneous Approach (ICD-10-PCS; principal; 2021-01-02)
PROC: 0DJ08ZZ Inspection of Upper Intestinal Tract, Via Natural or Artificial Opening Endoscopic (ICD-10-PCS; 2021-01-05)
DX: E88.89 Other specified metabolic disorders (principal); E43 Unspecified severe protein-calorie malnutrition; R64 Cachexia; N17.9 Acute kidney failure, unspecified; K52.1 Toxic gastroenteritis and colitis; C78.7 Secondary malignant neoplasm of liver and intrahepatic bile duct; C19 Malignant neoplasm of rectosigmoid junction; E87.1 Hypo-osmolality and hyponatremia; R62.7 Adult failure to thrive; Z93.2 Ileostomy status; Z20.822 Contact with and (suspected) exposure to COVID-19; E86.0 Dehydration; K21.9 Gastro-esophageal reflux disease without esophagitis; L27.0 Generalized skin eruption due to drugs and medicaments taken internally; K22.70 Barrett's esophagus without dysplasia; E83.42 Hypomagnesemia; E87.6 Hypokalemia; R74.01 Elevation of levels of liver transaminase levels; M47.812 Spondylosis without myelopathy or radiculopathy, cervical region; M48.02 Spinal stenosis, cervical region; N42.9 Disorder of prostate, unspecified; T45.1X5A Adverse effect of antineoplastic and immunosuppressive drugs, initial encounter; Z71.3 Dietary counseling and surveillance; Z79.899 Other long term (current) drug therapy; Z68.23 Body mass index [BMI] 23.0-23.9, adult; Z92.3 Personal history of irradiation; Z87.19 Personal history of other diseases of the digestive system; Z90.49 Acquired absence of other specified parts of digestive tract; Z95.828 Presence of other vascular implants and grafts; Z87.11 Personal history of peptic ulcer disease; Z88.2 Allergy status to sulfonamides; Z80.9 Family history of malignant neoplasm, unspecified
CPT/HCPCS: 36415; 44388; 71046; 72125; 80048; 80053; 81001; 82040; 82330; 82607; 82728; 82747; 83540; 83550; 83605; 83630; 83735; 83921; 84100; 84132; 84478; 85025; 85027; 85610; 85730; 87045; 87046; 87324; 87328; 87329; 87502; 87635; 93005; 94760; 96361; 96374; 96375; 96376; 99285

== ENCOUNTER → 2021-01-20 | Outpatient (CLI) | payer OTHER | END | disposition home or self-care (01) | LOC: LABWHC1 07:28 | PROVIDERS: ATTEND Nurse Practitioner Adult Health | DX: Z01.812 Encounter for preprocedural laboratory examination (principal); Z20.822 Contact with and (suspected) exposure to COVID-19 | CPT/HCPCS: U0003; C9803; U0005 ==

== ENCOUNTER → 2021-01-20 | Outpatient (CLI) | payer OTHER ==
--- NOTE | 2021-01-20 07:43 | CT ---
EXAMINATION TYPE: CT brain wo con DATE OF EXAM: 01/20/2021 HISTORY: Muscle weakness to left arm, personal history of rectal cancer. CT DLP: 1054.2 mGycm. Automated Exposure Control for Dose Reduction was Utilized. TECHNIQUE: CT scan of the head is performed without contrast. COMPARISON: None. FINDINGS: There is no acute intracranial hemorrhage or midline shift identified. There is diffuse v entricular and sulcal prominence consistent with diffuse age-related cerebral atrophy. There is low- attenuation in the periventricular white matter consistent with chronic small vessel ischemic change. Vague area of low attenuation right frontoparietal region axial images 30 through 40 The globes are intact and the visualized sinuses are clear. IMPRESSION: No acute intracranial hemorrhage or midline shift. There is mild diffuse cerebral atrop hy and chronic small vessel ischemic change. Vague area of low attenuation peripheral right frontopa rietal region, possible subacute infarct. Underlying mass felt less likely but not excluded. Follow-u p with contrast-enhanced MRI may be beneficial.
== END ==
LOC: RADCTMAIN 06:51
PROVIDERS: ATTEND Internal Medicine
DX: I67.82 Cerebral ischemia (principal); G31.9 Degenerative disease of nervous system, unspecified; Z85.048 Personal history of other malignant neoplasm of rectum, rectosigmoid junction, and anus
CPT/HCPCS: 70450

== ENCOUNTER → 2021-01-27 | Outpatient (CLI) | payer OTHER ==
--- NOTE | 2021-01-30 08:49 | PE ---
EXAMINATION TYPE: PET CT fusion skull to thigh DATE OF EXAM: 01/27/2021 COMPARISON: Prior PET/CT August 19, 2020 HISTORY: Rectal cancer metastatic to liver progress study. Surgery October 14, 2018. 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 TECHNIQUE: Following the intravenous administration of 11.36 mCi of F-18 FDG, whole body images are performed from the skull base to the midthigh. Images are reviewed on the computer in the coronal, a xial, and sagittal planes. Reconstructed rotating images are created on independent workstation and reviewed on the computer. A localization and attenuation correction CT is performed in conjunction with the PET scan. Blood glucose level equals 75. SCASubsequent Scancan FINDINGS: SKULL BASE AND NECK: No new areas of suspicious hypermetabolic uptake. CHEST, MEDIASTINUM, AND HILAR REGION: No new areas of suspicious hypermetabolic uptake. ABDOMEN AND PELVIS: Normal excretion is seen. Surgical changes involving the inferior rectum redemons trated. Stable soft tissue and sutures at this level. No new suspicious hypermetabolic uptake. OSSEOUS STRUCTURES: No new suspicious hypermetabolic uptake. OTHER CT: Stable Right subclavian Mediport catheter . Nodular bilateral subareolar gynecomastia redem onstrated. Moderate 2 severe calcification at the level of the aortic valve redemonstrated. 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 Surgical changes in the liver again seen with stable clips and focal hypodensity axial image 120. No recurrent or new hypermetabolic masses. Surgical changes epigastric region redemonstrated. Right-side d mid abdominal ostomy with parastomal hernia again seen. No bowel obstruction. Enlarged prostate wit h central calcifications. Mild/moderate wall thickening in the bladder likely product of radiation tr eatment involving the pelvis. Multilevel facet arthropathy mid to lower lumbar spine. IMPRESSION: No suspicious hypermetabolic uptake on current study to suggest recurrent local or metast atic neoplasm.
== END ==
LOC: RADPETMAIN 16:44
PROVIDERS: ATTEND Internal Medicine Hematology & Oncology
DX: Z85.048 Personal history of other malignant neoplasm of rectum, rectosigmoid junction, and anus (principal)
CPT/HCPCS: 78815; A9552

== ENCOUNTER → 2021-03-28 | Outpatient (CLI) | payer OTHER ==
--- NOTE | 2021-03-28 14:23 | CT ---
EXAMINATION TYPE: CT ChestAbdPelvis wo con DATE OF EXAM: 03/28/2021 COMPARISON: Prior PET CTs HISTORY: Rectal cancer CT DLP: 429 mGycm. Automated Exposure Control for Dose Reduction was Utilized. TECHNIQUE: CT scan of the thorax, abdomen and pelvis is performed with oral but without IV contrast. IV contrast could not be given due to acutely worsening renal function FINDINGS: LUNGS: Mild underlying emphysematous change. Mild bibasilar linear scarring. No suspicious nodules or masses. MEDIASTINUM: There are no greater than 1 cm hilar or mediastinal lymph nodes. Small pericardial effus ion is now present. There is ascending aortic aneurysm up to 4.1 cm. OTHER: Stable right subclavian Mediport catheter. Bilateral subareolar nodular gynecomastia. LIVER/GB: Occasional level of the aortic valve. Surgical clips in the anterior hepatic dome redemonst rated. PANCREAS: No significant abnormality is seen. SPLEEN: Spleen not seen presumed surgically absent, surgical clips left upper quadrant redemonstrated . ADRENALS: No significant abnormality is seen. KIDNEYS: No significant abnormality is seen. BOWEL: Surgical changes at level of rectum with sutures. Stable soft tissue presumed scar tissue pres acral space near axial image 110. Persistent right lower quadrant ostomy with peristomal hernia. No s uspicious small or large bowel dilatation GENITAL ORGANS: Bilaterally enlarged prostate with central calcifications. LYMPH NODES: No greater than 1cm abdominal or pelvic lymph nodes are appreciated. OSSEOUS STRUCTURES: Persistent rdfzgjzx-xn-yoifem disc space narrowing with vacuum disc phenomenon sophy mbosacral junction. Persistent ubsc-xt-gwhtrgha disc space narrowing and vacuum disc phenomenon L3-L4 level. Multilevel facet arthropathy in the mid to lower lumbar spine. OTHER: No significant additional abnormality is seen. IMPRESSION: Slightly suboptimal study due to lack of IV contrast. No obvious new mass or adenopathy to suggest active neoplastic recurrence. Note is made of 4.1 cm ascending aortic aneurysm.
== END | disposition home or self-care (01) ==
LOC: RADCTMAIN 10:29
PROVIDERS: ATTEND Internal Medicine Hematology & Oncology
DX: C20 Malignant neoplasm of rectum (principal); I71.2 Thoracic aortic aneurysm, without rupture
CPT/HCPCS: 36415; 71250; 74176; 82565; 84520

== ENCOUNTER → 2021-08-31 | Outpatient (CLI) | payer MEDICARE, OTHER ==
--- NOTE | 2021-08-31 14:01 | CT ---
EXAMINATION TYPE: CT ChestAbdPelvis w con DATE OF EXAM: 08/31/2021 COMPARISON: 03/28/2021 HISTORY: follow up rectal cancer CT DLP: 531.7 mGycm CONTRAST: CT scan of the chest, abdomen and pelvis is performed with Oral Contrast and with IV Contrast, patien t injected with 100 mL of Isovue 300. CT Chest: LUNGS: Hyperinflation compatible with COPD. The lungs are clear and free of infiltrate or atelectasis . No pulmonary nodule or mass is detected. No pleural effusion or CT evidence of interstitial lung disease. MEDIASTINUM: Ascending thoracic aortic aneurysm measuring approximately 4.1 cm is unchanged. The hear t is not enlarged. No evidence for mediastinal mass or adenopathy. HILAR STRUCTURES: No evidence for mass. No hilar adenopathy is appreciated. OTHER: No significant abnormality. CONTRAST CT ABDOMEN AND PELVIS FINDINGS: LIVER/GB: 1.6 cm hypoattenuating lesion anterior segment right hepatic lobe. Additional hypoattenuati ng lesion near the dome of the liver left lobe with internal clips identified measuring 2.7 x 3.2 cm and appears to have enlarged since prior study. There are also 2 hypoattenuating lesions within the l eft hepatic lobe measuring 1.3 cm and subcentimeter in size. The prior study was done without contras t therefore direct comparison is difficult however metastatic disease is not excluded. PANCREAS: No inflammation. No distinct mass. SPLEEN: No splenic enlargement. No lesion seen. ADRENALS: No nodule. No thickening. KIDNEYS/BLADDER: No hydronephrosis. No nephrolithiasis. No distinct renal mass. Wall thickening in volving the left portion of the urinary bladder could be related to prior treatment. Neoplasm not exc luded. BOWEL: Right lower quadrant colostomy with parastomal hernia redemonstrated. Small and large bowel ar e of normal caliber. Postoperative changes of the stomach. No evidence for rectal wall thickening at this time. GENITAL ORGANS: No gross abnormality. LYMPH NODES: No greater than 1cm abdominal or pelvic lymph nodes are appreciated. AORTA: No significant abnormality. OSSEOUS STRUCTURES: No significant abnormality is seen. OTHER: No significant additional abnormality is seen. IMPRESSION: 1. Hepatic lesions have either enlarged or new relative to prior examination however direct compariso n is difficult given lack of contrast on prior study. Prostatic disease is not excluded. 2. No CT evidence for local recurrence about the rectum. 3. Parastomal hernia redemonstrated.
== END | disposition home or self-care (01) ==
LOC: RADCTMAIN 11:40
PROVIDERS: ATTEND Internal Medicine Hematology & Oncology
DX: C71.8 Malignant neoplasm of overlapping sites of brain (principal); K43.5 Parastomal hernia without obstruction or gangrene
CPT/HCPCS: 82565; 84520; 71260; 74177; 36415; Q9967

== ENCOUNTER → 2021-10-10 | Outpatient (CLI) | payer MEDICARE, OTHER ==
--- NOTE | 2021-10-10 13:17 | CT ---
EXAMINATION TYPE: CT ChestAbdPelvis w con DATE OF EXAM: 10/10/2021 COMPARISON: CT CAP dated 08/31/2021 and older studies. HISTORY: rectal CA progress study. CT DLP: 779.8 mGycm. Automated Exposure Control for Dose Reduction was Utilized. CONTRAST: CT scan of the thorax, abdomen and pelvis is performed with oral and with IV Contrast, patient inject ed with 100 mL of Isovue 300. FINDINGS: LUNGS: Mild underlying emphysematous change. Mild bibasilar linear scarring. No suspicious new greate r than 5 mm nodules or masses. MEDIASTINUM: There are no new greater than 1 cm hilar or mediastinal lymph nodes. No pericardial effu ene seen currently. There is ascending aortic aneurysm up to 4.0 cm. Post-CABG changes with sternal wires and mediastinal clips redemonstrated. Incomplete healing of sternum noted. Surgical change at l evel of the aortic valve. OTHER: Stable right subclavian Mediport catheter. Bilateral subareolar nodular gynecomastia is redemo nstrated. LIVER/GB: Surgical clips in the anterior hepatic dome redemonstrated. Stable 3.4 cm hypodense lesion along axis at this level axial image [address] Prior visualized 1.7 cm lesion left hepat ic lobe axial image 10 now measures 8 mm long axis axial image 59. Improved right hepatic lesion ni uring 13 mm prior study image 18 versus 6 mm current study axial image 62. Gallbladder has distended margins similar to prior. PANCREAS: No significant abnormality is seen. SPLEEN: Spleen not seen presumed surgically absent, surgical clips left upper quadrant redemonstrated . ADRENALS: No significant abnormality is seen. KIDNEYS: Stable 2 to 3 mm nonobstructing calculus lower pole left kidney coronal image 60. No visuali zed excretion on delayed images but no hydronephrosis noted. Moderate left-sided eccentric wall thick ening for bladder redemonstrated axial image 110. Consider direct visualization. BOWEL: Surgical changes at level of rectum with sutures. Stable soft tissue presumed scar tissue pres acral space near axial image 110 is redemonstrated. Persistent right lower quadrant ostomy with peris tomal hernia containing portion of fecal filled colon. Mildly prominent bowel loops redemonstrated. N o suspicious abnormal small or large bowel dilatation. Focal eventration anterior mid abdomen near um bilicus without definitive hernia defect is redemonstrated. GENITAL ORGANS: Enlarged prostate with central calcifications redemonstrated. LYMPH NODES: No greater than 1cm abdominal or pelvic lymph nodes are appreciated. OSSEOUS STRUCTURES: Persistent cdvshulc-fq-isktcy disc space narrowing with vacuum disc phenomenon sophy mbosacral junction. Persistent oqpi-is-mphybutc disc space narrowing and vacuum disc phenomenon L3-L4 level. Multilevel facet arthropathy in the mid to lower lumbar spine. OTHER: No significant additional abnormality is seen. IMPRESSION: Partial positive treatment response. Some improvement in the smaller hepatic masses presu med metastatic disease from most recent CT. The largest lesion at site of surgical clips is stable fr om most recent CT. No new metastatic lesions identified.
== END | disposition home or self-care (01) ==
LOC: RADCTMAIN 09:58
PROVIDERS: ATTEND Internal Medicine Hematology & Oncology
DX: C21.8 Malignant neoplasm of overlapping sites of rectum, anus and anal canal (principal)
CPT/HCPCS: 82565; 84520; 81001; 71260; 74177; 36415; Q9967

== ENCOUNTER → 2022-02-05 | Outpatient (CLI) | payer MEDICARE, OTHER ==
--- NOTE | 2022-02-05 13:16 | CT ---
EXAMINATION TYPE: CT ChestAbdPelvis w con DATE OF EXAM: 02/05/2022 COMPARISON: CT dated 10/10/2021 HISTORY: Follow up for rectal cancer. CT DLP: 630.7 mGycm Automated exposure control for dose reduction was used. CONTRAST: CT scan of the chest, abdomen and pelvis is performed with Oral Contrast and with IV Contrast, patien t injected with 100ml mL of Isovue 300. FINDINGS: LUNGS: Right basal linear pulmonary lymph node. Newly seen irregular 4 mm left lung base nodule, with 3mm more superior nodule (image #44, series 4), possibly metastatic. No other definite lung nodule i dentified. Patent trachea and main bronchi. No pleural effusion. MEDIASTINUM: Unchanged cardiomediastinal silhouette, arterial atherosclerotic calcifications and asce nding aortic aneurysm measuring up to 4.2 cm. No pathologically enlarged lymph nodes in the chest. OTHER: Bilateral gynecomastia changes. Right-sided Port-A-Cath with the tip is seen within the SVC. Sternotomy wire sutures. No gross aggressive bone lesion. LIVER/GB: Stable post interventional changes in segment 8 of the liver measuring up to 3.4 cm. Interv al enlargement of the previously seen hepatic lesions. For example, a segment 6 lesion measuring 16mm compared to 6 mm previously. Newly seen adjacent segment 6 lesion measuring 7mm. Another subcapsular right hepatic lobe lesion is newly seen measuring 12 mm. Segment 4A lesion measures 15 mm compared t o 8mm previously. Other subtle hepatic millimetric hypodensities are seen in the left hepatic lobe an d inferior aspect of the right hepatic lobe likely representing new hepatic metastatic lesions. PANCREAS: No significant abnormality is seen. SPLEEN: Previous splenectomy. ADRENALS: No significant abnormality is seen. KIDNEYS: Left lower pole 3 mm nonobstructing renal calculus. Stable renal hypodensities, otherwise un remarkable kidneys. BOWEL: Previous gastrojejunostomy with no evidence of obstruction. Unremarkable small bowel anastomo tic sites. No evidence of bowel obstruction. Wall thickening and edema of the rectum with mesorectal fascial thickening and fat stranding, probably related to post therapeutic changes however underlying lesion cannot be excluded. No colonic obstruction. REPRODUCTIVE ORGANS: Prostatic concretion. Correlate with PSA level. Thickening of the left posterola teral aspect of the urinary bladder wall, possibly related to post radiation changes however underlyi ng lesion cannot be excluded. Recommend correlation with urinalysis results and cytology. LYMPH NODES: Stable 17 mm and other prominent milli hepatis lymph nodes, attention on follow-up. No g reater than 1 cm abdominal or pelvic lymph nodes are appreciated otherwise. OSSEOUS STRUCTURES: Degenerative changes at the lower lumbar spine. No aggressive bone lesion. OTHER: Aortic atherosclerotic calcifications. No sizable ascites. Postsurgical changes of previous ri ght lower quadrant ileostomy. Anterior abdominal wall midline inferior hernia containing small bowel loops. IMPRESSION: 1. Newly seen left lower lobe few lung nodules as detailed above, possibly metastatic. 2. Interval progression of the hepatic metastatic lesions as detailed above, consistent with progress nat disease. 3. Wall thickening of the rectum with surrounding of inflammatory changes as described above, possibl y related to post therapeutic changes however residual cancer cannot be excluded. 4. Wall thickening of the urinary bladder as detailed above, please correlate with urinalysis results /cytology to rule out underlying urothelial lesion. Other interval changes and incidental findings as described above.
== END | disposition home or self-care (01) ==
LOC: RADPROMAIN 09:55
PROVIDERS: ATTEND Internal Medicine Hematology & Oncology
DX: C21.8 Malignant neoplasm of overlapping sites of rectum, anus and anal canal (principal)
CPT/HCPCS: 71260; 74177; J1642; Q9967

== ENCOUNTER 2022-03-01 18:47 | Emergency (ER) | payer MEDICARE, OTHER ==
[2022-03-01 20:02] VITALS: TEMP 97.8
--- NOTE | 2022-03-01 22:34 | ED ---
Nausea/Vomiting/Diarrhea HPI - General Chief complaint: Nausea/Vomiting/Diarrhea Stated complaint: diarrhea, dehydration Time Seen by Provider: 03/01/22 21:54 Source: patient Mode of arrival: ambulatory Limitations: no limitations - History of Present Illness Initial comments: Patient is 61-year-old man with history of metastatic colon cancer. He presents here with complaint that he is having very frequent runny bowel movements. He states he is having a bowel movement approximately every 20 minutes and that this is been going on for weeks. He states this is been happening more or less continuously since January 22 when he had a colostomy reversal. This surgery was performed by Dr. Stallings at [facility] in [place]. Patient had h ad prior colostomy due to colon cancer. The patient had seen his oncologist Dr. Andrade, who had given him Lomotil yesterday but it has not seem to alter the bowel movements. Patient has not noted fever or chills. Not seeing bloody or tarry stools. No abdominal pain. MD complaint: diarrhea -: week(s) Description of Diarrhea: water Associated Abdominal Pain: No Consistency: constant Improves with: none Worsens with: none Associated Symptoms: denies other symptoms - Related Data Home Medications Medication Instructions Recorded Confirmed Aspirin EC [Ecotrin Low Dose] 81 mg PO DAILY 03/01/22 03/01/22 Diphenox-Atrop 2.5-0.025 mg 1 tab PO TID 03/01/22 03/01/22 [Lomotil] Multivitamins, Thera [Multivitamin 1 tab PO DAILY 03/01/22 03/01/22 (formulary)] Previous Rx's Medication Instructions Recorded Vancomycin HCl [Vancocin HCl] 125 mg PO Q6H #40 capsule 03/02/22 Allergies Allergy/AdvReac Type Severity Reaction Status Date / Time Sulfa (Sulfonamide Allergy Anaphylaxis Verified 03/01/22 23:18 Antibiotics) Review of Systems ROS Statement: Those systems with pertinent positive or pertinent negative responses have been documented in the HPI. ROS Other: All systems not noted in ROS Statement are negative. Constitutional: Denies: fever, chills Respiratory: Denies: cough, dyspnea Cardiovascular: Denies: chest pain, palpitations Gastrointestinal: Reports: diarrhea. Denies: abdominal pain, vomiting, melena, hematochezia Genitourinary: Denies: dysuria, hematuria Musculoskeletal: Denies: back pain Skin: Denies: rash Neurological: Denies: headache, weakness Past Medical History Past Medical History: Cancer, GERD/Reflux, Prostate Disorder Additional Past Medical History / Comment(s): colon cancer-LAST CHEMO AND RADIATION IN May. GI BLEED MARCH 2020 History of Any Multi-Drug Resistant Organisms: None Reported Past Surgical History: Bowel Resection Additional Past Surgical History / Comment(s): liver/rectal colon cancer,. COLONOSCOPY Past Anesthesia/Blood Transfusion Reactions: No Reported Reaction Past Psychological History: No Psychological Hx Reported Smoking Status: Never smoker Past Alcohol Use History: None Reported Past Drug Use History: None Reported - Past Family History Father Family Medical History: Cancer General Exam Limitations: no limitations General appearance: alert, in no apparent distress Head exam: Present: atraumatic, normocephalic Eye exam: Present: normal appearance. Absent: scleral icterus, conjunctival injection Neck exam: Present: normal inspection Respiratory exam: Present: normal lung sounds bilaterally. Absent: respiratory distress, wheezes, rales, rhonchi, stridor Cardiovascular Exam: Present: regular rate, normal rhythm, normal heart sounds, clicks. Absent: systolic murmur, diastolic murmur, rubs, gallop GI/Abdominal exam: Present: soft. Absent: distended, tenderness, guarding, rebound, rigid, mass Extremities exam: Present: normal inspection, normal capillary refill. Absent: pedal edema, calf tenderness Back exam: Present: normal inspection. Absent: CVA tenderness (R), CVA tenderness (L) Neurological exam: Present: alert Skin exam: Present: warm, dry, intact, normal color. Absent: rash Course Vital Signs 03/01/22 03/02/22 19:57 00:58 Temperature 97.8 F Pulse Rate 97 103 H Respiratory 20 18 Rate Blood Pressure 125/77 147/93 O2 Sat by Pulse 97 100 Oximetry Medical Decision Making - Lab Data Result diagrams: 03/01/22 22:55 03/01/22 22:55 Lab Results 03/01/22 03/01/22 03/01/22 Range/Units 22:55 22:55 22:55 WBC 8.5 (3.8-10.6) k/uL RBC 3.03 L (4.30-5.90) m/uL Hgb 8.1 L (13.0-17.5) gm/dL Hct 26.7 L (39.0-53.0) % MCV 88.0 (80.0-100.0) fL MCH 26.8 (25.0-35.0) pg MCHC 30.5 L (31.0-37.0) g/dL RDW 23.5 H (11.5-15.5) % Plt Count 598 H (150-450) k/uL MPV 8.0 Neutrophils % 80 % Lymphocytes % 11 % Monocytes % 5 % Eosinophils % 2 % Basophils % 0 % Neutrophils # 6.8 (1.3-7.7) k/uL Lymphocytes # 0.9 L (1.0-4.8) k/uL Monocytes # 0.4 (0-1.0) k/uL Eosinophils # 0.2 (0-0.7) k/uL Basophils # 0.0 (0-0.2) k/uL Manual Slide Review Performed Polychromasia Present Hypochromasia Marked Poikilocytosis Slight Poikilocytosis (manual Present Anisocytosis Moderate Anisocytosis (manual) Present Macrocytosis Slight Target Cells Present Walker-Albee Bodies Present Sodium 133 L (137-145) mmol/L Potassium 3.5 (3.5-5.1) mmol/L Chloride 104 (98-107) mmol/L Carbon Dioxide 24 (22-30) mmol/L Anion Gap 5 mmol/L BUN 15 (9-20) mg/dL Creatinine 1.05 (0.66-1.25) mg/dL Est GFR (CKD-EPI)AfAm 88 (>60 ml/min/1.73 sqM) Est GFR (CKD-EPI)NonAf 76 (>60 ml/min/1.73 sqM) Glucose 105 H (74-99) mg/dL Calcium 8.2 L (8.4-10.2) mg/dL Total Bilirubin 0.6 (0.2-1.3) mg/dL AST 23 (17-59) U/L ALT 17 (4-49) U/L Alkaline Phosphatase 84 (38-126) U/L Total Protein 5.1 L (6.3-8.2) g/dL Albumin 2.8 L (3.5-5.0) g/dL C. difficile (EIA) Intrp Positive A (Negative) Disposition Clinical Impression: Clostridium difficile diarrhea Disposition: HOME SELF-CARE Condition: Fair Instructions (If sedation given, give patient instructions): C. Diff (Clostridioides Difficile) Infection (ED) Prescriptions: Vancomycin HCl [Vancocin HCl] 125 mg PO Q6H #40 capsule Is patient prescribed a controlled substance at d/c from ED?: No Referrals: Amaury Pulido MD [Primary Care Provider] - 1-2 days
[2022-03-01 23:33] LABS: Anisocytosis Moderate; Basophils % (A) 0 %; Eosinophils # (A) 0.2 k/uL (0-0.7); Eosinophils % (A) 2 %; HCT 26.7 % (39.0-53.0); HGB 8.1 gm/dL (13.0-17.5); Hypochromasia Marked; Lymphocytes # (A) 0.9 k/uL (1.0-4.8); Lymphocytes % (A) 11 %; MCH 26.8 pg (25.0-35.0); MCHC 30.5 g/dL (31.0-37.0); Macrocytosis Slight; Monocytes # (A) 0.4 k/uL (0-1.0); Monocytes % (A) 5 %; Neutrophils # (A) 6.8 k/uL (1.3-7.7); Neutrophils % (A) 80 %; Poikilocytosis Slight; RBC 3.03 m/uL (4.30-5.90); RDW 23.5 % (11.5-15.5); WBC 8.5 k/uL (3.8-10.6)
[2022-03-01 23:34] LABS: Albumin 2.8 g/dL (3.5-5.0); Calcium 8.2 mg/dL (8.4-10.2); Potassium 3.5 mmol/L (3.5-5.1); Total Bilirubin 0.6 mg/dL (0.2-1.3); Total Protein 5.1 g/dL (6.3-8.2)
[2022-03-01] MEDS ORDERED: VANCOMYCIN 125 MG CAPSULE PO STA (23:54)
[2022-03-02 00:32] LABS: Anisocytosis (M) Present; Poikilocytosis (M) Present; Polychromasia Present; Target Cells Present
[2022-03-02 00:33] LABS: Howell-Jolly Bodies Present; Platelet Count 598 k/uL (150-450)
[2022-03-02 00:59] VITALS: RESP 18
[2022-03-02 04:23] VITALS: BP 134/86; PULSE 101
== END 2022-03-02 04:56 | disposition home or self-care (01) ==
LOC: EC 18:47
DX: A04.72 Enterocolitis due to Clostridium difficile, not specified as recurrent (principal); K21.9 Gastro-esophageal reflux disease without esophagitis; Z79.83 Long term (current) use of bisphosphonates; Z88.2 Allergy status to sulfonamides
CPT/HCPCS: 36415; 80053; 85025; 87324; 87045; 87046; 99284; 96374; J1642

== ENCOUNTER 2022-03-21 14:47 | Inpatient (IN) | payer MEDICARE, OTHER ==
[2022-03-21] MEDS ORDERED: SODIUM CHLORIDE 0.9% 1,000 ML IV STA (16:30)
--- NOTE | 2022-03-21 16:43 | ED ---
General Adult HPI - General Chief complaint: Nausea/Vomiting/Diarrhea Stated complaint: Diarrhea Time Seen by Provider: 03/21/22 16:25 Source: patient, family, RN notes reviewed, old records reviewed Mode of arrival: ambulatory Limitations: no limitations - History of Present Illness Initial comments: This is a 61-year-old male, alert and oriented 4, presents to the emergency room with diarrhea intermittently since January after colostomy reversal. Patient states that he was seen in the hospital in February diagnosed with C. diff and prescribed antibiotics. He finished the antibiotics however his diarrhea has returned it is yellow in color more than 20 times a day. He denies any abdominal pain, nausea, vomiting or fevers. He does have a history of colon cancer with metastasis to the liver and lung. He is currently on chemotherapy and is being seen at [facility]. -: month(s) (2) Severity scale (1-10): 0 Associated Symptoms: other (diarrhea) Treatments Prior to Arrival: none - Related Data Home Medications Medication Instructions Recorded Confirmed Aspirin EC [Ecotrin Low Dose] 81 mg PO DAILY 03/01/22 03/21/22 Diphenox-Atrop 2.5-0.025 mg 1 tab PO TID PRN 03/01/22 03/21/22 [Lomotil] Multivitamins, Thera [Multivitamin 1 tab PO DAILY 03/01/22 03/21/22 (formulary)] Cholestyramine (with Sugar) 4 gm PO BID 03/21/22 03/21/22 [Cholestyramine Packet] Allergies Allergy/AdvReac Type Severity Reaction Status Date / Time Sulfa (Sulfonamide Allergy Anaphylaxis Verified 03/21/22 20:48 Antibiotics) Review of Systems ROS Statement: Those systems with pertinent positive or pertinent negative responses have been documented in the HPI. ROS Other: All systems not noted in ROS Statement are negative. Past Medical History Past Medical History: Cancer, GERD/Reflux, Prostate Disorder Additional Past Medical History / Comment(s): colon cancer-LAST CHEMO AND RADIATION IN May. GI BLEED MARCH 2020 History of Any Multi-Drug Resistant Organisms: None Reported Past Surgical History: Bowel Resection Additional Past Surgical History / Comment(s): liver/rectal colon cancer,. COLONOSCOPY Past Anesthesia/Blood Transfusion Reactions: No Reported Reaction Past Psychological History: No Psychological Hx Reported Smoking Status: Never smoker Past Alcohol Use History: None Reported Past Drug Use History: None Reported - Past Family History Father Family Medical History: Cancer General Exam Limitations: no limitations General appearance: alert, in no apparent distress Head exam: Present: atraumatic Eye exam: Absent: scleral icterus, conjunctival injection, periorbital swelling, periorbital tenderness ENT exam: Present: normal exam, normal oropharynx, mucous membranes moist Neck exam: Present: normal inspection, full ROM. Absent: tenderness, meningismus, lymphadenopathy Respiratory exam: Present: normal lung sounds bilaterally. Absent: respiratory distress, accessory muscle use Cardiovascular Exam: Present: regular rate GI/Abdominal exam: Present: soft. Absent: distended, tenderness, guarding, rebound, rigid Extremities exam: Present: normal capillary refill. Absent: tenderness, pedal edema Back exam: Present: normal inspection. Absent: tenderness, CVA tenderness (R), CVA tenderness (L), rash noted Neurological exam: Present: alert, oriented X3, normal gait Psychiatric exam: Present: normal affect, normal mood Skin exam: Present: warm, dry, intact. Absent: cyanosis, diaphoretic, petechiae Course Vital Signs 03/21/22 03/21/22 15:16 22:17 Temperature 99 F 99.1 F Pulse Rate 99 97 Respiratory 18 16 Rate Blood Pressure 121/84 122/83 O2 Sat by Pulse 100 97 Oximetry Medical Decision Making - Medical Decision Making Patient presents with persistent diarrhea. He does have a history of colon cancer and is currently on chemotherapy. Vital signs are stable and he is afebrile. Abdomen is soft and nontender. There is no evidence of leukocytosis. Electrolytes are unremarkable. Patient is positive for C. diff and was started on vancomycin by mouth in the emergency room. He will be admitted to the hospital for persistent diarrhea and recurrent C. diff. Vital signs are stable. Case was discussed with Dr. Barajas who is agreeable to this plan of care. Patient is agreeable to admission. - Lab Data Result diagrams: 03/21/22 16:37 03/21/22 16:37 Lab Results 03/21/22 03/21/22 03/21/22 Range/Units 16:37 16:37 16:37 WBC 9.0 (3.8-10.6) k/uL RBC 4.06 L (4.30-5.90) m/uL Hgb 11.0 L (13.0-17.5) gm/dL Hct 36.8 L (39.0-53.0) % MCV 90.8 (80.0-100.0) fL MCH 27.0 (25.0-35.0) pg MCHC 29.8 L (31.0-37.0) g/dL RDW 21.5 H (11.5-15.5) % Plt Count 594 H (150-450) k/uL MPV 7.4 Neutrophils % 83 % Lymphocytes % 10 % Monocytes % 2 % Eosinophils % 3 % Basophils % 0 % Neutrophils # 7.5 (1.3-7.7) k/uL Lymphocytes # 0.9 L (1.0-4.8) k/uL Monocytes # 0.2 (0-1.0) k/uL Eosinophils # 0.2 (0-0.7) k/uL Basophils # 0.0 (0-0.2) k/uL Hypochromasia Marked Anisocytosis Moderate Macrocytosis Slight Sodium 134 L (137-145) mmol/L Potassium 4.0 (3.5-5.1) mmol/L Chloride 106 (98-107) mmol/L Carbon Dioxide 23 (22-30) mmol/L Anion Gap 5 mmol/L BUN 15 (9-20) mg/dL Creatinine 1.03 (0.66-1.25) mg/dL Est GFR (CKD-EPI)AfAm 90 (>60 ml/min/1.73 sqM) Est GFR (CKD-EPI)NonAf 78 (>60 ml/min/1.73 sqM) Glucose 98 (74-99) mg/dL Calcium 8.3 L (8.4-10.2) mg/dL Total Bilirubin 0.5 (0.2-1.3) mg/dL AST 35 (17-59) U/L ALT 22 (4-49) U/L Alkaline Phosphatase 125 (38-126) U/L Total Protein 5.8 L (6.3-8.2) g/dL Albumin 3.3 L (3.5-5.0) g/dL Amylase 84 (30-110) U/L Lipase 84 (23-300) U/L C. difficile (EIA) Intrp Positive A (Negative) Disposition Clinical Impression: Diarrhea, Clostridioides difficile infection Disposition: ADMITTED IP TO THIS HOSP Decision Date: 03/21/22 Decision Time: 20:21
[2022-03-21 17:05] LABS: Anisocytosis Moderate; Basophils % (A) 0 %; Eosinophils # (A) 0.2 k/uL (0-0.7); Eosinophils % (A) 3 %; HCT 36.8 % (39.0-53.0); Hypochromasia Marked; Lymphocytes # (A) 0.9 k/uL (1.0-4.8); Lymphocytes % (A) 10 %; MCHC 29.8 g/dL (31.0-37.0); MCV 90.8 fL (80.0-100.0); Macrocytosis Slight; Mean Platelet Volume 7.4; Monocytes # (A) 0.2 k/uL (0-1.0); Monocytes % (A) 2 %; Neutrophils # (A) 7.5 k/uL (1.3-7.7); Neutrophils % (A) 83 %; Platelet Count 594 k/uL (150-450); RBC 4.06 m/uL (4.30-5.90); RDW 21.5 % (11.5-15.5)
[2022-03-21 17:08] LABS: Albumin 3.3 g/dL (3.5-5.0); Calcium 8.3 mg/dL (8.4-10.2); Total Bilirubin 0.5 mg/dL (0.2-1.3); Total Protein 5.8 g/dL (6.3-8.2)
[2022-03-21] MEDS ORDERED: NALOXONE 0.4 MG/ML 1 ML VIAL IV PRN (20:35)
[2022-03-21] MEDS: CHOLESTYRAMINE (WITH SUGAR) 4 GM PACKET PO SCH (21:41)
[2022-03-21] MEDS: SODIUM CHLORIDE 0.9% 1,000 ML IV SCH (21:46)
[2022-03-21] MEDS: DIPHENOX-ATROP 2.5-0.025 MG 1 EACH TAB PO PRN (21:46)
[2022-03-21] MEDS ORDERED: VANCOMYCIN 125 MG CAPSULE PO SCH (22:00)
[2022-03-22 01:35] LABS: Appearance,Urine Clear (Clear); Bilirubin,Urine Negative (Negative); Blood,Urine Negative (Negative); Color,Urine Yellow; Glucose,Urine (UA) Negative (Negative); Ketones,Urine Trace (Negative); Leukocyte Esterase,Urine Negative (Negative); Nitrite,Urine Negative (Negative); Protein,Urine Trace (Negative); Specific Gravity,Urine 1.024 (1.001-1.035); Urobilinogen,Urine <2.0 mg/dL (<2.0)
[2022-03-22] MEDS: SODIUM CHLORIDE 0.9% 1,000 ML IV SCH (02:56)
--- NOTE | 2022-03-22 03:41 | P.HPIM ---
History of Present Illness H&P Date: 03/21/22 Patient is a 61-year-old male with a PMH of metastatic colon cancer (status post resection with colostomy and subsequent reversal, multiple rounds of chemotherapy, following with Dr. Andrade) who presents to the emergency room with diarrhea. The patient reports that he was initially diagnosed with C. diff colitis roughly 2 weeks ago and was given an oral course of antibiotics which he completed. He reports that after completion, his symptoms had initially improved, only to worsen again 2 days ago. He reports upwards of 20-30 BMs daily for the past 48 hours denies any blood in the bowl movements. Denied expressing nausea or vomiting. Also denied fever, chills, chest pain, shortness of breath. Laboratory evaluation in the emergency room was positive for C. diff with platelet count 594. Review of systems: Pertinent positives and negatives as discussed in HPI, a complete review of systems was performed and all other systems are negative. Physical examination: General: non toxic, no distress, appears at stated age, normal weight Derm: no unusual rashes/lesions no unusual ecchymoses, warm, dry Head: atraumatic, normocephalic, symmetric Eyes: EOMI, no lid lag, anicteric sclera, pupils equal round reactive to light ENT: Nose and ears atraumatic, no thrush, no pharyngeal erythema Neck: No thyromegaly, no cervical lymphadenopathy, trachea midline, supple Mouth: no lip lesion, mucus membranes moist Cardiovascular: S1S2 reg, no murmur, positive posterior tibial pulse bilateral, no edema, capillary refill less than 2 seconds, right chest wall port in place Lungs: CTA bilateral, no rhonchi, no rales , no accessory muscle use Abdominal: soft, nontender to palpation, no guarding, no appreciable organomegaly, normal bowel sounds Ext: no gross muscle atrophy, muscle strength 5 out of 5 in all 4 extremities grossly, no contractures, Neuro: CN II-XI grossly intact, light touch intact all 4 extremities, finger to nose within normal limits, Psych: Alert, oriented, appropriate affect Assessment/plan C. diff with first recurrence -Start for Fidaxmycin 200 mg by mouth twice a day for 10 days -Clear liquid diet -IV fluids DVT prophylaxis -Heparin subq The patient is admitted with an anticipated less than 2 midnight stay for evaluation of C diff CODE STATUS: Full Code Discussed with: Patient Anticipated discharge date: in am Anticipated discharge place: Home Past Medical History Past Medical History: Cancer, GERD/Reflux, Prostate Disorder Additional Past Medical History / Comment(s): colon cancer-LAST CHEMO ON 03/16/22. GI BLEED MARCH 2020 History of Any Multi-Drug Resistant Organisms: C-DIFF Date of last positivie culture/infection: 03/21/2022 MDRO Source:: stool Past Surgical History: Bowel Resection, Cardiac Valve Replacement Additional Past Surgical History / Comment(s): liver/rectal colon cancer,. COLONOSCOPY. colostomy reversal January 2022, removed section of liver in 2018 Past Anesthesia/Blood Transfusion Reactions: No Reported Reaction Past Psychological History: No Psychological Hx Reported Smoking Status: Never smoker Past Alcohol Use History: None Reported Past Drug Use History: None Reported - Past Family History Father Family Medical History: Cancer Medications and Allergies Home Medications Medication Instructions Recorded Confirmed Type Aspirin EC [Ecotrin Low Dose] 81 mg PO DAILY 03/01/22 03/21/22 History Diphenox-Atrop 2.5-0.025 mg 1 tab PO TID PRN 03/01/22 03/21/22 History [Lomotil] Multivitamins, Thera [Multivitamin 1 tab PO DAILY 03/01/22 03/21/22 History (formulary)] Cholestyramine (with Sugar) 4 gm PO BID 03/21/22 03/21/22 History [Cholestyramine Packet] Allergies Allergy/AdvReac Type Severity Reaction Status Date / Time Sulfa (Sulfonamide Allergy Anaphylaxis Verified 03/21/22 20:48 Antibiotics) Physical Exam Vitals: Vital Signs Temp Pulse Pulse Resp BP BP Pulse Ox 03/21/22 23:30 99.4 F 98 20 120/77 99 03/21/22 22:17 99.1 F 97 16 122/83 97 03/21/22 15:16 99 F 99 18 121/84 100 Intake and Output 03/21/22 03/21/22 03/22/22 14:59 22:59 06:59 Other: Weight 64.864 kg 64.864 kg Results CBC & Chem 7: 03/21/22 16:37 03/21/22 16:37 Labs: Abnormal Lab Results - Last 24 Hours (Table) 05/11/22 05/11/22 05/11/22 Range/Units 16:37 16:37 16:37 RBC 4.06 L (4.30-5.90) m/uL Hgb 11.0 L (13.0-17.5) gm/dL Hct 36.8 L (39.0-53.0) % MCHC 29.8 L (31.0-37.0) g/dL RDW 21.5 H (11.5-15.5) % Plt Count 594 H (150-450) k/uL Lymphocytes # 0.9 L (1.0-4.8) k/uL Sodium 134 L (137-145) mmol/L Calcium 8.3 L (8.4-10.2) mg/dL Total Protein 5.8 L (6.3-8.2) g/dL Albumin 3.3 L (3.5-5.0) g/dL C. difficile (EIA) Intrp Positive A (Negative) Thrombosis Risk Factor Assmnt - Choose All That Apply Any of the Below Risk Factors Present?: No Other Risk Factors: Yes Each Risk Factor Represents 2 Points: Age 61-74 years Other congenital or acquired thrombophilia - If yes, enter type in comment: No Thrombosis Risk Factor Assessment Total Risk Factor Score: 2 Thrombosis Risk Factor Assessment Level: Low Risk
[2022-03-22] MEDS: FIDAXOMICIN 200 MG TABLET PO SCH ×2 (04:20→21:18)
[2022-03-22] MEDS: CHOLESTYRAMINE (WITH SUGAR) 4 GM PACKET PO SCH ×2 (07:25→21:18)
[2022-03-22] MEDS: ASPIRIN 81 MG PO SCH (07:25)
[2022-03-22] MEDS: DIPHENOX-ATROP 2.5-0.025 MG 1 EACH TAB PO PRN ×2 (07:25→14:55)
[2022-03-22] MEDS: MULTIVITAMINS, THERA 1 EACH TAB PO SCH (07:25)
--- NOTE | 2022-03-22 12:14 | P.PN ---
Subjective Progress Note Date: 03/22/22 Hospital course: Patient is a 61-year-old male with a PMH of metastatic colon cancer (status post resection with colostomy and subsequent reversal, multiple rounds of chemotherapy, following with Dr. Andrade) who presents to the emergency room with diarrhea. The patient reports that he was initially diagnosed with C. diff colitis roughly 2 weeks ago and was given an oral course of antibiotics which he completed. He reports that after completion, his symptoms had initially improved, only to worsen again 2 days ago. He reports upwards of 20-30 BMs daily for the past 48 hours denies any blood in the bowl movements. Denied expressing nausea or vomiting. Also denied fever, chills, chest pain, shortness of breath. Laboratory evaluation in the emergency room was positive for C. diff with platelet count 594. Patient received last dose of chemo 2 weeks ago and this is his fifth round of chemo second dose with next dose due 03/30/22. Physical examination: Patient seen and fully evaluated at bedside. Patient and RN reports greater than 20 episodes of diarrhea over the past 16 hours. Patient transitioned to i npatient as he will require continued vigorous IV hydration and gut rest. Patient may continue clear liquid diet. 0.9% normal saline discontinued and patient started on D5 0.45 at 100 mL per hour with POC glucose checks to be completed every 6 hours. C. diff is positive. General: non toxic, no distress, appears at stated age Derm: warm, dry Head: atraumatic, normocephalic, symmetric Eyes: EOMI, no lid lag, anicteric sclera Mouth: no lip lesion, mucus membranes moist Cardiovascular: S1S2 reg, no murmur, positive posterior tibial pulse bilateral, Lungs: CTA bilateral, no rhonchi, no rales , no accessory muscle use Abdominal: soft, nontender to palpation, no guarding, no appreciable organo megaly Ext: no gross muscle atrophy, no edema, no contractures Neuro: CN II-XI grossly intact, no focal neuro deficits Psych: Alert, oriented, appropriate affect Assessment and plan of care: C. diff with first recurrence -Clear liquid diet -Continued IV hydration with D5.45 in 100 mL's per hour. -Antibiotics: Fidaxomicin, Flagyl and vancomycin due to severity of c-diff and -Repeat a.m. labs for close monitoring of electrolyte values secondary to pers istent diarrhea. Metastatic colon cancer -Continue to follow up outpatient with Dr. Andrade CODE STATUS: Full Code DVT prophylaxis: Heparin Discussed with: Patient Anticipated discharge date: Clinical course to determine Anticipated discharge place: Home I reviewed the documentation as provided by the CORTNEY above, who is the original author of this note. I agree with the documented assessment and plan, with the following changes: none Objective - Vital Signs Vital signs: Vital Signs Temp 98.7 F 03/22/22 05:00 Pulse 99 03/22/22 05:00 Resp 20 03/22/22 05:00 BP 108/75 03/22/22 05:00 Pulse Ox 98 03/22/22 05:00 Intake & Output 03/21/22 03/22/22 03/22/22 18:59 06:59 18:59 Intake Total 350 Balance 350 Weight 64.864 kg 64.864 kg Intake: Blood Product 350 Other: Voiding Method Toilet Urinal # Voids 2 # Bowel Movements 3 - Labs CBC & Chem 7: 03/21/22 16:37 03/21/22 16:37 Labs: Abnormal Lab Results - Last 24 Hours (Table) 03/21/22 03/21/22 03/21/22 Range/Units 16:37 16:37 16:37 RBC 4.06 L (4.30-5.90) m/uL Hgb 11.0 L (13.0-17.5) gm/dL Hct 36.8 L (39.0-53.0) % MCHC 29.8 L (31.0-37.0) g/dL RDW 21.5 H (11.5-15.5) % Plt Count 594 H (150-450) k/uL Lymphocytes # 0.9 L (1.0-4.8) k/uL Sodium 134 L (137-145) mmol/L Calcium 8.3 L (8.4-10.2) mg/dL Total Protein 5.8 L (6.3-8.2) g/dL Albumin 3.3 L (3.5-5.0) g/dL Urine Protein (Negative) Urine Ketones (Negative) C. difficile (EIA) Intrp Positive A (Negative) 03/22/22 Range/Units 01:15 RBC (4.30-5.90) m/uL Hgb (13.0-17.5) gm/dL Hct (39.0-53.0) % MCHC (31.0-37.0) g/dL RDW (11.5-15.5) % Plt Count (150-450) k/uL Lymphocytes # (1.0-4.8) k/uL Sodium (137-145) mmol/L Calcium (8.4-10.2) mg/dL Total Protein (6.3-8.2) g/dL Albumin (3.5-5.0) g/dL Urine Protein Trace H (Negative) Urine Ketones Trace H (Negative) C. difficile (EIA) Intrp (Negative)
[2022-03-22] MEDS: DEXTROSE 5%-0.45% NACL 1,000 ML IV SCH ×2 (12:29→22:48)
[2022-03-22 12:50] LABS: Glucose,Whole Blood 81 mg/dL (75-99)
[2022-03-22] MEDS: CHERRY FLAVOR 60 ML BOTTLE PO PRN ×3 (14:44→22:41)
[2022-03-22] MEDS: VANCOMYCIN ORAL SOLUTION 250 MG/5 ML BOTTLE PO SCH ×3 (14:44→22:41)
[2022-03-22] MEDS: LACTOBACILLUS ACIDOPH & BULGAR 1 EACH PACKET PO SCH ×2 (14:55→22:40)
[2022-03-22] MEDS: metroNIDAZOLE-NS PMX 500 MG in SALINE 1 100ML.BAG IVPB SCH (14:55)
[2022-03-22] MEDS: IOPAMIDOL CONTRAST (ORAL USE) VIAL PO PRN ×2 (15:39→16:36)
[2022-03-22 17:11] VITALS: BMI 21.7
--- NOTE | 2022-03-22 18:00 | CT ---
EXAMINATION TYPE: CT abdomen pelvis w con CT DLP: 526.5 mGycm, Automated exposure control for dose reduction was used. DATE OF EXAM: 03/22/2022 5:33 PM COMPARISON: CT abdomen pelvis most recent from 01/28/2022 CLINICAL INDICATION:Male, 61 years old with history of intractable diarrhea TECHNIQUE: Standard CT of the abdomen and pelvis following the administration of 100 cc of Isovue 3 00 IV contrast material. Coronal and sagittal reformats were performed. FINDINGS: LOWER CHEST: Similar left lower lobe thick-walled cyst/nodule measuring 6 mm. Thick atelectasis scarr ing changes also seen in the lung bases. ABDOMEN LIVER: Multiple (greater than 20) hypoattenuating lesions are seen throughout the liver which appear increased in size and numbers from prior imaging. The largest in the left hepatic lobe measuring 22 m m previously 15 mm. The largest in the right hepatic lobe measuring 27 mm previously 16 mm. GALLBLADDER AND BILE DUCTS: Mild extrahepatic biliary ductal prominence. PANCREAS: Unremarkable. SPLEEN: Unremarkable. ADRENAL GLANDS: Unremarkable. KIDNEYS AND URETERS: No evidence of hydronephrosis or renal calculus. The ureters are unremarkable. PELVIS BLADDER: Circumferential wall thickening of the bladder measuring up to 7 mm with surrounding subtle fat stranding. REPRODUCTIVE: Coarse calcifications of the prostate gland are identified. ABDOMEN & PELVIS STOMACH AND BOWEL: There is circumferential wall thickening of the colon extending from the surgical changes in the right abdomen to the rectum. No evidence of organizing fluid collection or pneumoperit oneum. No evidence of bowel obstruction. Postsurgical changes with ostomy noted within the lower abdo men. Surgical clips are seen in the left upper quadrant with surgical connection of the stomach and s mall bowel. There is left upper quadrant small bowel jejunal wall thickening. PERITONEUM: No evidence of pneumoperitoneum or free fluid. VASCULATURE: Moderate atherosclerotic calcifications are present throughout the abdominal aorta and i ts branches. MUSCULOSKELETAL: Moderate disc degeneration changes are present throughout the thoracolumbar spine.. LYMPH NODES: No gross evidence for lymphadenopathy. SOFT TISSUE/ABDOMINAL WALL: Unremarkable IMPRESSION: 1. Colitis involving the colon distending from the rectum to the surgical changes near the cecum/asce nding colon. No additional enteritis of the jejunum in the left upper quadrant. 2. Progressive metastatic disease involving the liver 3. Circumferential bladder wall thickening suggesting cystitis. Correlate with urinalysis.
[2022-03-22 18:51] LABS: Glucose,Whole Blood 122 mg/dL (75-99)
[2022-03-23 05:27] LABS: Glucose,Whole Blood 124 mg/dL (75-99)
[2022-03-23 06:04] LABS: Glucose,Whole Blood 140 mg/dL (75-99)
[2022-03-23] MEDS: metroNIDAZOLE-NS PMX 500 MG in SALINE 1 100ML.BAG IVPB SCH ×2 (06:26→09:00)
[2022-03-23] MEDS: CHOLESTYRAMINE (WITH SUGAR) 4 GM PACKET PO SCH ×2 (08:59→21:22)
[2022-03-23] MEDS: FIDAXOMICIN 200 MG TABLET PO SCH (09:00)
[2022-03-23] MEDS: MULTIVITAMINS, THERA 1 EACH TAB PO SCH (09:00)
[2022-03-23] MEDS: VANCOMYCIN ORAL SOLUTION 250 MG/5 ML BOTTLE PO SCH ×4 (09:00→21:21)
[2022-03-23] MEDS: CHERRY FLAVOR 60 ML BOTTLE PO PRN ×4 (09:00→21:21)
[2022-03-23] MEDS: ASPIRIN 81 MG PO SCH (09:00)
[2022-03-23] MEDS: LACTOBACILLUS ACIDOPH & BULGAR 1 EACH PACKET PO SCH ×3 (09:01→21:22)
[2022-03-23] MEDS: DEXTROSE 5%-0.45% NACL 1,000 ML IV SCH ×2 (09:05→19:22)
[2022-03-23 09:13] LABS: HCT 32.2 % (39.6-50.0); HGB 9.4 g/dL (13.0-17.0); MCHC 29.2 g/dL (32.0-37.0); MCV 89.2 fL (80.0-97.0); Mean Platelet Volume 10.5 fL (9.5-12.2); NRBC Per 100 WBC 0.2 /100 WBCS (0.0-0.0); Platelet Count 507 X 10*3/uL (140-440); RBC 3.61 X 10*6/uL (4.40-5.60); RDW 25.4 % (11.5-14.5); WBC 8.14 X 10*3/uL (4.50-10.00)
[2022-03-23 09:35] LABS: African American GFR (CKD) 87.7 (60.0-200.0); Albumin 3.1 g/dL (3.8-4.9); Albumin/Globulin Ratio 1.67 (1.60-3.17); Anion Gap 10.1 mmol/L (10.00-18.00); BUN/Creat Ratio 11.05 Ratio (12.00-20.00); Blood Urea Nitrogen 11.6 mg/dL (9.0-27.0); Calcium 8.4 mg/dL (8.7-10.3); Carbon Dioxide 22.6 mmol/L (20.0-27.5); Globulin 1.9 g/dL (1.6-3.3); Magnesium 1.9 mg/dL (1.5-2.4); Non-African American GFR(CKD) 75.7 (60.0-200.0); Potassium 4.1 mmol/L (3.5-5.5); Total Bilirubin 0.3 mg/dL (0.30-1.20)
[2022-03-23 11:37] LABS: Glucose,Whole Blood 97 mg/dL (75-99)
--- NOTE | 2022-03-23 13:57 | P.PN ---
Subjective Progress Note Date: 03/23/22 Principal diagnosis: diarrhea continues to have severe bouts of diarrhea, states he has a BM every 20min. Unable to hold any liquids down due to diarrhea. No vomiting. No fevers. Objective - Vital Signs Vital signs: Vital Signs Temp 98.5 F 03/23/22 11:40 Pulse 75 03/23/22 11:40 Resp 18 03/23/22 11:40 BP 104/69 03/23/22 11:40 Pulse Ox 99 03/23/22 11:40 Intake & Output 03/22/22 03/23/22 03/23/22 18:59 06:59 18:59 Intake Total 1100 590 180 Balance 1100 590 180 Weight 64.864 kg Intake: Intake, IV Titration 1100 Amount Dextrose 5%-0.45% NaCl 1, 550 000 ml @ 100 mls/hr IV . Q10H [facility] Rx#:[id number] Sodium Chloride 0.9% 1, 450 000 ml @ 75 mls/hr IV . [id number] [facility] Rx#:[id number] metroNIDAZOLE-NS PMX 500 100 mg In Saline 1 100ml.bag @ 100 mls/hr IVPB Q8HR [facility] Rx#:[id number] Oral 590 180 Other: Voiding Method Toilet Urinal # Voids 2 # Bowel Movements 12 2 - Exam Constitutional: No acute distress, conversant, pleasant Eyes:Anicteric sclerae, moist conjunctiva, no lid-lag, PERRLA, ENMT: Oropharynx clear, no erythema, exudates Neck: Supple, FROM, no masses, or JVD, No carotid bruits, No thyromegaly Lungs: Clear to auscultation, Clear to percussion, Normal respiratory effort, no accessory muscle use Cardiovascular: Heart regular in rate and rhythm, No murmurs, gallops, or rubs, No peripheral edema Abdominal: Soft, Nontender, no guarding, rebound or rigidity, Normoactive bowel sounds, No hepatomegaly, No splenomegaly, No palpable mass Skin: Normal temperature, tone, texture, turgor, no induration, No subcutaneous nodules, No rash, lesions, No ulcers Extremities: No digital cyanosis, No clubbing, Pedal pulses intact and symmetrical, Radial pulses intact and symmetrical, No calf tenderness Psychiatric: Alert and oriented to person, place and time, appropriate affect, intact judgement Neuro: Muscles Strength 5/5 in all 4 extremities, Sensation to light touch grossly present throughout, Cranial nerves II-XII grossly intact, no focal sensory deficits - Labs CBC & Chem 7: 03/23/22 05:47 03/23/22 05:47 Labs: Abnormal Lab Results - Last 24 Hours (Table) 03/22/22 03/23/22 03/23/22 Range/Units 18:49 00:32 05:47 RBC 3.61 L (4.40-5.60) X 10*6/uL Hgb 9.4 L (13.0-17.0) g/dL Hct 32.2 L (39.6-50.0) % MCH 26.0 L (27.0-32.0) pg MCHC 29.2 L (32.0-37.0) g/dL RDW 25.4 H (11.5-14.5) % Plt Count 507 H (140-440) X 10*3/uL Absolute Nucleated RBC 0.02 H (0.00-0.00) X 10*3/uL NRBC/100 WBC Diff 0.2 H (0.0-0.0) /100 WBCS Sodium (135-145) mmol/L BUN/Creatinine Ratio (12.00-20.00) Ratio Glucose (70-110) mg/dL POC Glucose (mg/dL) 122 H 124 H (75-99) mg/dL Calcium (8.7-10.3) mg/dL Total Protein (6.2-8.2) g/dL Albumin (3.8-4.9) g/dL 03/23/22 03/23/22 Range/Units 05:47 06:02 RBC (4.40-5.60) X 10*6/uL Hgb (13.0-17.0) g/dL Hct (39.6-50.0) % MCH (27.0-32.0) pg MCHC (32.0-37.0) g/dL RDW (11.5-14.5) % Plt Count (140-440) X 10*3/uL Absolute Nucleated RBC (0.00-0.00) X 10*3/uL NRBC/100 WBC Diff (0.0-0.0) /100 WBCS Sodium 134 L (135-145) mmol/L BUN/Creatinine Ratio 11.05 L (12.00-20.00) Ratio Glucose 115 H (70-110) mg/dL POC Glucose (mg/dL) 140 H (75-99) mg/dL Calcium 8.4 L (8.7-10.3) mg/dL Total Protein 5.0 L (6.2-8.2) g/dL Albumin 3.1 L (3.8-4.9) g/dL Assessment and Plan Plan: C.diff with first recurrence -Advance diet -Continued IV hydration with D5.45 in 100 mL's per hour. -Antibiotics: vancomycin po -Consult ID -Repeat a.m. labs for close monitoring of electrolyte values secondary to persistent diarrhea. Metastatic colon cancer -Continue to follow up outpatient with Dr. Andrade CODE STATUS: Full Code DVT prophylaxis: Heparin Discussed with: Patient Anticipated discharge date: Clinical course to determine Anticipated discharge place: Home
[2022-03-23 18:45] LABS: Glucose,Whole Blood 150 mg/dL (75-99)
[2022-03-24 01:06] LABS: Glucose,Whole Blood 110 mg/dL (75-99)
[2022-03-24] MEDS: DEXTROSE 5%-0.45% NACL 1,000 ML IV SCH ×2 (05:04→16:55)
[2022-03-24 06:08] LABS: Glucose,Whole Blood 118 mg/dL (75-99)
[2022-03-24] MEDS: MULTIVITAMINS, THERA 1 EACH TAB PO SCH (08:07)
[2022-03-24] MEDS: ASPIRIN 81 MG PO SCH (08:08)
[2022-03-24] MEDS: CHOLESTYRAMINE (WITH SUGAR) 4 GM PACKET PO SCH ×2 (08:08→21:03)
[2022-03-24] MEDS: LACTOBACILLUS ACIDOPH & BULGAR 1 EACH PACKET PO SCH ×3 (08:08→21:03)
[2022-03-24] MEDS: VANCOMYCIN ORAL SOLUTION 250 MG/5 ML BOTTLE PO SCH ×4 (08:10→21:03)
[2022-03-24 08:58] LABS: Basophils # (A) 0.04 X 10*3/uL (0.00-0.10); Basophils % (A) 0.6 %; Eosinophils # (A) 0.35 X 10*3/uL (0.04-0.35); Eosinophils % (A) 5.5 %; HCT 27.7 % (39.6-50.0); HGB 8.5 g/dL (13.0-17.0); Immature Grans, Automated 0.3 %; Lymphocytes # (A) 0.71 X 10*3/uL (0.90-5.00); Lymphocytes % (A) 11.1 %; MCH 26.9 pg (27.0-32.0); MCHC 30.7 g/dL (32.0-37.0); MCV 87.7 fL (80.0-97.0); Mean Platelet Volume 10.6 fL (9.5-12.2); Monocytes # (A) 0.72 X 10*3/uL (0.20-1.00); Monocytes % (A) 11.3 %; NRBC Per 100 WBC 0.3 /100 WBCS (0.0-0.0); Neutrophils # (A) 4.54 X 10*3/uL (1.80-7.70); Neutrophils % (A) 71.2 %; Platelet Count 510 X 10*3/uL (140-440); RBC 3.16 X 10*6/uL (4.40-5.60); RDW 24.1 % (11.5-14.5); WBC 6.38 X 10*3/uL (4.50-10.00)
[2022-03-24 10:58] LABS: ALT 16 U/L (10-49); AST 20 U/L (14-35); African American GFR (CKD) 82.9 (60.0-200.0); Albumin 2.7 g/dL (3.8-4.9); Alkaline Phosphatase 91 U/L (41-126); BUN/Creat Ratio 9.27 Ratio (12.00-20.00); Blood Urea Nitrogen 10.2 mg/dL (9.0-27.0); Carbon Dioxide 22.4 mmol/L (20.0-27.5); Chloride 107 mmol/L (96-109); Globulin 1.8 g/dL (1.6-3.3); Glucose 111 mg/dL (70-110); Non-African American GFR(CKD) 71.6 (60.0-200.0); Potassium 3.2 mmol/L (3.5-5.5); Sodium 138 mmol/L (135-145); Total Bilirubin <0.15 mg/dL (0.30-1.20); Total Protein 4.5 g/dL (6.2-8.2)
[2022-03-24] MEDS ORDERED: Potassium Replacement Protocol 1 EACH MISC MISCELLANE PRN (11:44)
[2022-03-24] MEDS: POTASSIUM CHLORIDE ER 20 MEQ TAB.ER PO SCH ×2 (11:54→13:28)
[2022-03-24] MEDS ORDERED: POTASSIUM CHLORIDE 10 MEQ in WATER FOR INJECTION 1 100ML.BAG IVPB STA (12:12)
[2022-03-24] MEDS ORDERED: POTASSIUM CHLORIDE ER 20 MEQ TAB.ER PO STA (12:12)
--- NOTE | 2022-03-24 12:12 | P.PN ---
Subjective Progress Note Date: 03/24/22 Principal diagnosis: diarrhea Patient is currently feeling better. He is able to keep his food down. He is not having as much diarrhea as prior. No fevers or chills. No abdominal pain. No nausea or vomiting. Objective - Vital Signs Vital signs: Vital Signs Temp 99.3 F 03/24/22 04:26 Pulse 91 03/24/22 04:26 Resp 16 03/24/22 04:26 BP 113/75 03/24/22 04:26 Pulse Ox 99 03/24/22 04:26 Intake & Output 03/23/22 03/24/22 03/24/22 18:59 06:59 18:59 Intake Total 180 830 Balance 180 830 Intake: Oral 180 830 Other: Voiding Method Toilet Toilet Urinal Urinal # Voids 2 # Bowel Movements 10 - Exam Constitutional: No acute distress, conversant, pleasant Eyes:Anicteric sclerae, moist conjunctiva, no lid-lag, PERRLA, ENMT: Oropharynx clear, no erythema, exudates Neck: Supple, FROM, no masses, or JVD, No carotid bruits, No thyromegaly Lungs: Clear to auscultation, Clear to percussion, Normal respiratory effort, no accessory muscle use Cardiovascular: Heart regular in rate and rhythm, No murmurs, gallops, or rubs, No peripheral edema Abdominal: Soft, Nontender, no guarding, rebound or rigidity, Normoactive bowel sounds, No hepatomegaly, No splenomegaly, No palpable mass Skin: Normal temperature, tone, texture, turgor, no induration, No subcutaneous nodules, No rash, lesions, No ulcers Extremities: No digital cyanosis, No clubbing, Pedal pulses intact and symmetrical, Radial pulses intact and symmetrical, No calf tenderness Psychiatric: Alert and oriented to person, place and time, appropriate affect, intact judgement Neuro: Muscles Strength 5/5 in all 4 extremities, Sensation to light touch grossly present throughout, Cranial nerves II-XII grossly intact, no focal sensory deficits - Labs CBC & Chem 7: 03/24/22 06:20 03/24/22 06:20 Labs: Abnormal Lab Results - Last 24 Hours (Table) 03/23/22 03/24/22 03/24/22 Range/Units 18:27 01:05 06:07 RBC (4.40-5.60) X 10*6/uL Hgb (13.0-17.0) g/dL Hct (39.6-50.0) % MCH (27.0-32.0) pg MCHC (32.0-37.0) g/dL RDW (11.5-14.5) % Plt Count (140-440) X 10*3/uL Absolute Nucleated RBC (0.00-0.00) X 10*3/uL Lymphocytes # (0.90-5.00) X 10*3/uL NRBC/100 WBC Diff (0.0-0.0) /100 WBCS Potassium (3.5-5.5) mmol/L Anion Gap (10.00-18.00) mmol/L BUN/Creatinine Ratio (12.00-20.00) Ratio Glucose (70-110) mg/dL POC Glucose (mg/dL) 150 H 110 H 118 H (75-99) mg/dL Calcium (8.7-10.3) mg/dL Total Bilirubin (0.30-1.20) mg/dL Total Protein (6.2-8.2) g/dL Albumin (3.8-4.9) g/dL Albumin/Globulin Ratio (1.60-3.17) g/dL 03/24/22 03/24/22 Range/Units 06:20 06:20 RBC 3.16 L (4.40-5.60) X 10*6/uL Hgb 8.5 L (13.0-17.0) g/dL Hct 27.7 L (39.6-50.0) % MCH 26.9 L (27.0-32.0) pg MCHC 30.7 L (32.0-37.0) g/dL RDW 24.1 H (11.5-14.5) % Plt Count 510 H (140-440) X 10*3/uL Absolute Nucleated RBC 0.02 H (0.00-0.00) X 10*3/uL Lymphocytes # 0.71 L (0.90-5.00) X 10*3/uL NRBC/100 WBC Diff 0.3 H (0.0-0.0) /100 WBCS Potassium 3.2 L (3.5-5.5) mmol/L Anion Gap 8.60 L (10.00-18.00) mmol/L BUN/Creatinine Ratio 9.27 L (12.00-20.00) Ratio Glucose 111 H (70-110) mg/dL POC Glucose (mg/dL) (75-99) mg/dL Calcium 8.0 L (8.7-10.3) mg/dL Total Bilirubin <0.15 L (0.30-1.20) mg/dL Total Protein 4.5 L (6.2-8.2) g/dL Albumin 2.7 L (3.8-4.9) g/dL Albumin/Globulin Ratio 1.50 L (1.60-3.17) g/dL Assessment and Plan Plan: C.diff with first recurrence -Advance diet -Continued IV hydration with D5.45 in 100 mL's per hour. -Antibiotics: vancomycin po -Consult ID -Repeat a.m. labs for close monitoring of electrolyte values secondary to persistent diarrhea. Hypokalemia -Replace and follow Metastatic colon cancer -Continue to follow up outpatient with Dr. Andrade CODE STATUS: Full Code DVT prophylaxis: Heparin Discussed with: Patient Anticipated discharge date: Clinical course to determine Anticipated discharge place: Home
[2022-03-24 12:43] LABS: Glucose,Whole Blood 142 mg/dL (75-99)
[2022-03-24] MEDS: CHERRY FLAVOR 60 ML BOTTLE PO PRN (21:03)
[2022-03-25] MEDS: DEXTROSE 5%-0.45% NACL 1,000 ML IV SCH ×3 (01:31→21:02)
[2022-03-25] MEDS: ASPIRIN 81 MG PO SCH (08:13)
[2022-03-25] MEDS: LACTOBACILLUS ACIDOPH & BULGAR 1 EACH PACKET PO SCH ×3 (08:13→21:02)
[2022-03-25] MEDS: DIPHENOX-ATROP 2.5-0.025 MG 1 EACH TAB PO PRN ×2 (08:13→21:02)
[2022-03-25] MEDS: MULTIVITAMINS, THERA 1 EACH TAB PO SCH (08:13)
[2022-03-25] MEDS: CHOLESTYRAMINE (WITH SUGAR) 4 GM PACKET PO SCH ×2 (08:14→21:02)
[2022-03-25] MEDS: VANCOMYCIN ORAL SOLUTION 250 MG/5 ML BOTTLE PO SCH ×2 (08:16→12:49)
[2022-03-25 09:18] LABS: African American GFR (CKD) 82.9 (60.0-200.0); Anion Gap 7.7 mmol/L (10.00-18.00); BUN/Creat Ratio 8.73 Ratio (12.00-20.00); Blood Urea Nitrogen 9.6 mg/dL (9.0-27.0); Carbon Dioxide 22.3 mmol/L (20.0-27.5); Magnesium 2.1 mg/dL (1.5-2.4); Non-African American GFR(CKD) 71.6 (60.0-200.0); Potassium 3.6 mmol/L (3.5-5.5)
[2022-03-25 09:48] LABS: Basophils # (A) 0.04 X 10*3/uL (0.00-0.10); Basophils % (A) 0.6 %; Eosinophils # (A) 0.35 X 10*3/uL (0.04-0.35); Eosinophils % (A) 5.6 %; HCT 28.6 % (39.6-50.0); HGB 8.4 g/dL (13.0-17.0); Immature Grans, Automated 0.5 %; Lymphocytes # (A) 1.02 X 10*3/uL (0.90-5.00); Lymphocytes % (A) 16.3 %; MCH 26.4 pg (27.0-32.0); MCHC 29.4 g/dL (32.0-37.0); MCV 89.9 fL (80.0-97.0); Mean Platelet Volume 10.6 fL (9.5-12.2); Monocytes # (A) 0.76 X 10*3/uL (0.20-1.00); Monocytes % (A) 12.2 %; NRBC Per 100 WBC 0 /100 WBCS (0.0-0.0); Neutrophils # (A) 4.04 X 10*3/uL (1.80-7.70); Neutrophils % (A) 64.8 %; Platelet Count 547 X 10*3/uL (140-440); RBC 3.18 X 10*6/uL (4.40-5.60); RDW 24.8 % (11.5-14.5); WBC 6.24 X 10*3/uL (4.50-10.00)
--- NOTE | 2022-03-25 15:23 | P.PN ---
Subjective Progress Note Date: 03/25/22 Principal diagnosis: diarrhea Patient states that last night he had about 15 episodes of diarrhea. He is not getting better overall. No fevers or chills. No abdominal pain. Objective - Vital Signs Vital signs: Vital Signs Temp 98.3 F 03/25/22 12:00 Pulse 77 03/25/22 12:00 Resp 16 03/25/22 12:00 BP 118/77 03/25/22 12:00 Pulse Ox 98 03/25/22 12:00 Intake & Output 03/24/22 03/25/22 03/25/22 18:59 06:59 18:59 Intake Total 1680 Balance 1680 Intake: Intake, IV Titration 1200 Amount Dextrose 5%-0.45% NaCl 1, 1200 000 ml @ 100 mls/hr IV . Q10H [facility] Rx#:[id number] Oral 480 Other: Voiding Method Toilet Toilet Toilet Urinal # Voids 7 2 # Bowel Movements 7 4 - Exam Constitutional: No acute distress, conversant, pleasant Eyes:Anicteric sclerae, moist conjunctiva, no lid-lag, PERRLA, ENMT: Oropharynx clear, no erythema, exudates Neck: Supple, FROM, no masses, or JVD, No carotid bruits, No thyromegaly Lungs: Clear to auscultation, Clear to percussion, Normal respiratory effort, no accessory muscle use Cardiovascular: Heart regular in rate and rhythm, No murmurs, gallops, or rubs, No peripheral edema Abdominal: Soft, Nontender, no guarding, rebound or rigidity, Normoactive bowel sounds, No hepatomegaly, No splenomegaly, No palpable mass Skin: Normal temperature, tone, texture, turgor, no induration, No subcutaneous nodules, No rash, lesions, No ulcers Extremities: No digital cyanosis, No clubbing, Pedal pulses intact and symmetrical, Radial pulses intact and symmetrical, No calf tenderness Psychiatric: Alert and oriented to person, place and time, appropriate affect, intact judgement Neuro: Muscles Strength 5/5 in all 4 extremities, Sensation to light touch grossly present throughout, Cranial nerves II-XII grossly intact, no focal sensory deficits - Labs CBC & Chem 7: 03/25/22 06:17 03/25/22 06:17 Labs: Abnormal Lab Results - Last 24 Hours (Table) 03/25/22 03/25/22 Range/Units 06:17 06:17 RBC 3.18 L (4.40-5.60) X 10*6/uL Hgb 8.4 L (13.0-17.0) g/dL Hct 28.6 L (39.6-50.0) % MCH 26.4 L (27.0-32.0) pg MCHC 29.4 L (32.0-37.0) g/dL RDW 24.8 H (11.5-14.5) % Plt Count 547 H (140-440) X 10*3/uL Anion Gap 7.70 L (10.00-18.00) mmol/L BUN/Creatinine Ratio 8.73 L (12.00-20.00) Ratio Calcium 8.0 L (8.7-10.3) mg/dL Assessment and Plan Plan: C.diff with first recurrence -Advance diet -Continued IV hydration with D5.45 in 100 mL's per hour. -Since patient is not getting better we'll change antibiotics from vancomycin po to dificid -Consulted ID awaiting evaluation -Repeat a.m. labs for close monitoring of electrolyte values secondary to persistent diarrhea. Hypokalemia -Replace and follow Metastatic colon cancer -Continue to follow up outpatient with Dr. Andrade CODE STATUS: Full Code DVT prophylaxis: Heparin Discussed with: Patient Anticipated discharge date: Clinical course to determine Anticipated discharge place: Home
[2022-03-25] MEDS: FIDAXOMICIN 200 MG TABLET PO SCH ×2 (16:38→21:02)
[2022-03-26] MEDS: DEXTROSE 5%-0.45% NACL 1,000 ML IV SCH ×2 (07:49→17:48)
[2022-03-26] MEDS: MULTIVITAMINS, THERA 1 EACH TAB PO SCH (08:59)
[2022-03-26] MEDS: CHOLESTYRAMINE (WITH SUGAR) 4 GM PACKET PO SCH ×2 (08:59→20:53)
[2022-03-26] MEDS: FIDAXOMICIN 200 MG TABLET PO SCH ×2 (08:59→20:53)
[2022-03-26] MEDS: ASPIRIN 81 MG PO SCH (08:59)
[2022-03-26] MEDS: LACTOBACILLUS ACIDOPH & BULGAR 1 EACH PACKET PO SCH ×3 (08:59→20:53)
[2022-03-26 10:58] LABS: African American GFR (CKD) 82.9 (60.0-200.0); Anion Gap 6.4 mmol/L (10.00-18.00); BUN/Creat Ratio 7.82 Ratio (12.00-20.00); Blood Urea Nitrogen 8.6 mg/dL (9.0-27.0); Calcium 8.1 mg/dL (8.7-10.3); Carbon Dioxide 23.6 mmol/L (20.0-27.5); Non-African American GFR(CKD) 71.6 (60.0-200.0); Potassium 3.7 mmol/L (3.5-5.5)
--- NOTE | 2022-03-26 12:21 | P.CONS ---
History of Present Illness - Reason for Consult Consult date: 03/26/22 C. diff colitis Requesting physician: Dalton Burdick - Chief Complaint Diarrhea x few days - History of Present Illness Patient is a 61-year male with a past medical history significant for C. difficile colitis about 3 weeks ago that apparently has been treated with a 10-day course of oral vancomycin patient mention he did have improvement of his diarrhea while he was taking the oral vancomycin the patient started having diarrhea again and presented back to the hospital on 03/21/2022 complaining of low stool almost 20 times per day denies any blood or mucus in the stool he did have some crampy lower abdominal pain intensity 5-6 out of 10 no radiation did have some nausea but no vomiting and denies having any fever or any chills patient did not recall if he was giving any antibiotic for any other reason patient on presentation to hospital have low-grade fever of 99 F patient did have normal white count creatinine was normal stool for C. difficile came back positive patient was treated with oral vancomycin initially for 3 days however did not have improvement and the patient was switched over to Dificid infectious he was consulted for further management of any by therapy, patient mention he did have some improvement in the diarrhea however still having a lot of diarrhea in the evening denies any blood or mucus in the stool and abdominal pain Review of Systems Positive point has been mentioned in the HPI rest of the systems are negative Past Medical History Past Medical History: Cancer, GERD/Reflux, Prostate Disorder Additional Past Medical History / Comment(s): colon cancer-LAST CHEMO ON 03/16/22. GI BLEED MARCH 2020 History of Any Multi-Drug Resistant Organisms: C-DIFF Year Discovered:: 03/21/2022 MDRO Source:: stool Past Surgical History: Bowel Resection, Cardiac Valve Replacement Additional Past Surgical History / Comment(s): liver/rectal colon cancer,. COLONOSCOPY. colostomy reversal January 2022, removed section of liver in 2019 Past Anesthesia/Blood Transfusion Reactions: No Reported Reaction Past Psychological History: No Psychological Hx Reported Smoking Status: Never smoker Past Alcohol Use History: None Reported Past Drug Use History: None Reported - Past Family History Father Family Medical History: Cancer Medications and Allergies Home Medications Medication Instructions Recorded Confirmed Type Aspirin EC [Ecotrin Low Dose] 81 mg PO DAILY 03/01/22 03/21/22 History Diphenox-Atrop 2.5-0.025 mg 1 tab PO TID PRN 03/01/22 03/21/22 History [Lomotil] Multivitamins, Thera [Multivitamin 1 tab PO DAILY 03/01/22 03/21/22 History (formulary)] Cholestyramine (with Sugar) 4 gm PO BID 03/21/22 03/21/22 History [Cholestyramine Packet] Allergies Allergy/AdvReac Type Severity Reaction Status Date / Time Sulfa (Sulfonamide Allergy Anaphylaxis Verified 03/21/22 20:48 Antibiotics) Physical Exam Vitals: Vital Signs Temp Pulse Resp BP Pulse Ox 03/26/22 04:43 98.9 F 98 20 117/80 100 03/25/22 21:00 99.1 F 88 18 114/78 99 03/25/22 12:00 98.3 F 77 16 118/77 98 Intake and Output 03/25/22 03/26/22 03/26/22 22:59 06:59 14:59 Intake Total 240 1940 Balance 240 1940 Intake: Intake, IV Titration 1200 Amount Dextrose 5%-0.45% NaCl 1, 1200 000 ml @ 100 mls/hr IV . Q10H [facility] Rx#:[id number] Oral 240 740 Other: Voiding Method Toilet # Voids 12 2 # Bowel Movements 12 4 GENERAL DESCRIPTION: Middle-aged male lying in bed, no distress. No tachypnea or accessory muscle of respiration use. HEENT: Shows Pallor , no scleral icterus. Oral mucous membrane is dry. No pharyngeal erythema or thrush NECK: Trachea central, no thyromegaly. LUNGS: Unlabored breathing. Clear to auscultation anteriorly. No wheeze or crackle. HEART: S1, S2, regular rate and rhythm. No loud murmur ABDOMEN: Soft, no tenderness , guarding or rigidity, no organomegaly EXTREMITIES: No edema of feet. SKIN: No rash, no masses palpable. NEUROLOGICAL: The patient is awake, alert, oriented x3, mood and affect normal. Results CBC & Chem 7: 03/25/22 06:17 03/26/22 07:08 Labs: Abnormal Lab Results - Last 24 Hours (Table) 03/25/22 03/25/22 Range/Units 06:17 06:17 RBC 3.18 L (4.40-5.60) X 10*6/uL Hgb 8.4 L (13.0-17.0) g/dL Hct 28.6 L (39.6-50.0) % MCH 26.4 L (27.0-32.0) pg MCHC 29.4 L (32.0-37.0) g/dL RDW 24.8 H (11.5-14.5) % Plt Count 547 H (140-440) X 10*3/uL Anion Gap 7.70 L (10.00-18.00) mmol/L BUN/Creatinine Ratio 8.73 L (12.00-20.00) Ratio Calcium 8.0 L (8.7-10.3) mg/dL Assessment and Plan (1) Clostridioides difficile infection Current Visit: Yes Status: Acute Code(s): A49.8 - OTHER BACTERIAL INFECTIONS OF UNSPECIFIED SITE SNOMED Code(s): 890179777 Plan: 1patient presented to hospital with diarrhea being a recurrent episode first episode was treated with oral vancomycin patient subsequently has not received an antibiotic and did have a recurrence of diarrhea with the C. difficile more likely from regeneration of the spores. 2patient to continue with the Dificid 200 mg twice a day to finish 10-day course of therapy. 3to continue with a question for symptomatic relief however discontinue Lomotil. 4advised to increase his probiotic and yogurt intake. We will follow on clinical condition and cultures to further adjust medication if needed Thank you for this consultation will follow this patient along with you
[2022-03-26 17:07] VITALS: RESP 16
--- NOTE | 2022-03-26 17:11 | P.PN ---
Subjective Progress Note Date: 03/26/22 Hospital course: Patient is a 61-year-old male with a PMH of metastatic colon cancer (status post resection with colostomy and subsequent reversal, multiple rounds of chemotherapy, following with Dr. Andrade) who presents to the emergency room with diarrhea. The patient reports that he was initially diagnosed with C. diff colitis roughly 2 weeks ago and was given an oral course of antibiotics which he completed. He reports that after completion, his symptoms had initially improved, only to worsen again 2 days ago. He reports upwards of 20-30 BMs daily for the past 48 hours denies any blood in the bowl movements. Denied expressing nausea or vomiting. Also denied fever, chills, chest pain, shortness of breath. Laboratory evaluation in the emergency room was positive for C. diff with platelet count 594. Patient received last dose of chemo 2 weeks ago and this is his fifth round of chemo second dose with next dose due 03/30/22. Physical examination: Patient seen and fully evaluated at bedside. Patient again reports persistent diarrhea with again greater than 20 episodes over the past 24 hours. He remains on IV fluid hydration with D5.45% at 100 mL's per hour. Infectious disease is following and patient to continue Dificid 200 mg twice daily. Patient continues to deny having any abdominal pain, nausea, vomiting, melena, or hematochezia. Vital signs unremarkable and labs reviewed showing no significant abnormalities this morning. General: non toxic, no distress, appears at stated age Derm: warm, dry Head: atraumatic, normocephalic, symmetric Eyes: EOMI, no lid lag, anicteric sclera Mouth: no lip lesion, mucus membranes moist Cardiovascular: S1S2 reg, no murmur, positive posterior tibial pulse bilateral, Lungs: CTA bilateral, no rhonchi, no rales , no accessory muscle use Abdominal: soft, nontender to palpation, no guarding, no appreciable organomegaly Ext: no gross muscle atrophy, no edema, no contractures Neuro: CN II-XI grossly intact, no focal neuro deficits Psych: Alert, oriented, appropriate affect Assessment and plan of care: C. diff with first recurrence -Clear liquid diet -Continued IV hydration with D5.45 in 100 mL's per hour. -Antibiotics: Continuation of Fidaxomicin -Infectious disease consulted appreciate further recommendations -Repeat a.m. labs for close monitoring of electrolyte values secondary to persistent diarrhea. Metastatic colon cancer -Continue to follow up outpatient with Dr. Andrade CODE STATUS: Full Code DVT prophylaxis: Heparin Discussed with: Patient Anticipated discharge date: Clinical course to determine Anticipated discharge place: Home Objective - Vital Signs Vital signs: Vital Signs Temp 98.9 F 03/26/22 04:43 Pulse 98 03/26/22 04:43 Resp 20 03/26/22 04:43 BP 117/80 03/26/22 04:43 Pulse Ox 100 03/26/22 04:43 Intake & Output 03/25/22 03/26/22 03/26/22 18:59 06:59 18:59 Intake Total 2180 Balance 2180 Intake: Intake, IV Titration 1200 Amount Dextrose 5%-0.45% NaCl 1, 1200 000 ml @ 100 mls/hr IV . Q10H [facility] Rx#:[id number] Oral 980 Other: Voiding Method Toilet Toilet # Voids 12 2 # Bowel Movements 12 4 - Labs CBC & Chem 7: 03/27/22 06:48 03/27/22 06:48 Labs: Abnormal Lab Results - Last 24 Hours (Table) 03/25/22 03/25/22 Range/Units 06:17 06:17 RBC 3.18 L (4.40-5.60) X 10*6/uL Hgb 8.4 L (13.0-17.0) g/dL Hct 28.6 L (39.6-50.0) % MCH 26.4 L (27.0-32.0) pg MCHC 29.4 L (32.0-37.0) g/dL RDW 24.8 H (11.5-14.5) % Plt Count 547 H (140-440) X 10*3/uL Anion Gap 7.70 L (10.00-18.00) mmol/L BUN/Creatinine Ratio 8.73 L (12.00-20.00) Ratio Calcium 8.0 L (8.7-10.3) mg/dL Assessment and Plan Assessment: This documentation was completed by the Nurse Practitioner. History, physical examination including assessment and plan were only completed by Nurse Practitioner and was NOT evaluated by myself the attending physician including all plan of care including discharge planning and documentation. I did NOT participate or have any communication regarding the patient, including orders, imaging, diagnostic work up, consultations, communication with registered RN/glass installer technician and discharge planning/instructions. I will be co-signing this documentation as this is a requirement per [facility] and agreement.
[2022-03-27] MEDS: DEXTROSE 5%-0.45% NACL 1,000 ML IV SCH ×3 (03:45→21:21)
[2022-03-27] MEDS: FIDAXOMICIN 200 MG TABLET PO SCH ×2 (09:10→21:20)
[2022-03-27] MEDS: LACTOBACILLUS ACIDOPH & BULGAR 1 EACH PACKET PO SCH ×3 (09:10→21:20)
[2022-03-27] MEDS: CHOLESTYRAMINE (WITH SUGAR) 4 GM PACKET PO SCH ×2 (09:10→21:20)
[2022-03-27] MEDS: ASPIRIN 81 MG PO SCH (09:10)
[2022-03-27] MEDS: MULTIVITAMINS, THERA 1 EACH TAB PO SCH (09:10)
[2022-03-27 10:42] LABS: HCT 27.4 % (39.6-50.0); HGB 8.3 g/dL (13.0-17.0); MCH 26.9 pg (27.0-32.0); MCHC 30.3 g/dL (32.0-37.0); MCV 88.7 fL (80.0-97.0); NRBC Per 100 WBC 0.2 /100 WBCS (0.0-0.0); Platelet Count 613 X 10*3/uL (140-440); RBC 3.09 X 10*6/uL (4.40-5.60); RDW 24.9 % (11.5-14.5); WBC 8.01 X 10*3/uL (4.50-10.00)
[2022-03-27 10:54] LABS: ALT 16 U/L (10-49); AST 22 U/L (14-35); African American GFR (CKD) 93.1 (60.0-200.0); Albumin 2.9 g/dL (3.8-4.9); Albumin/Globulin Ratio 1.81 (1.60-3.17); Alkaline Phosphatase 86 U/L (41-126); Blood Urea Nitrogen 7.2 mg/dL (9.0-27.0); Calcium 8.2 mg/dL (8.7-10.3); Carbon Dioxide 22.5 mmol/L (20.0-27.5); Chloride 110 mmol/L (96-109); Globulin 1.6 g/dL (1.6-3.3); Glucose 110 mg/dL (70-110); Magnesium 2.1 mg/dL (1.5-2.4); Non-African American GFR(CKD) 80.3 (60.0-200.0); Potassium 4.1 mmol/L (3.5-5.5); Sodium 140 mmol/L (135-145); Total Bilirubin <0.15 mg/dL (0.30-1.20); Total Protein 4.5 g/dL (6.2-8.2)
--- NOTE | 2022-03-27 17:13 | P.PN ---
Subjective Progress Note Date: 03/27/22 Hospital course: Patient is a 61-year-old male with a PMH of metastatic colon cancer (status post resection with colostomy and subsequent reversal, multiple rounds of chemotherapy, following with Dr. Andrade) who presents to the emergency room with diarrhea. The patient reports that he was initially diagnosed with C. diff colitis roughly 2 weeks ago and was given an oral course of antibiotics which he completed. He reports that after completion, his symptoms had initially improved, only to worsen again 2 days ago. He reports upwards of 20-30 BMs daily for the past 48 hours denies any blood in the bowl movements. Denied expressing nausea or vomiting. Also denied fever, chills, chest pain, shortness of breath. Laboratory evaluation in the emergency room was positive for C. diff with platelet count 594. Patient received last dose of chemo 2 weeks ago and this is his fifth round of chemo second dose with next dose due 03/30/22. Physical examination: Patient seen and fully evaluated at bedside. Patient reporting that he believes the diarrhea is improving and reports approximately 10-12 episodes over the past 24 hours. Patient remains on Fidaxomicin and is tolerating oral intake. Patient continues to deny having any abdominal pain, nausea, vomiting, melena, or hematochezia. Vital signs unremarkable and labs reviewed showing no significant abnormalities this morning. Morning labs reviewed and stable. General: non toxic, no distress, appears at stated age Derm: warm, dry Head: atraumatic, normocephalic, symmetric Eyes: EOMI, no lid lag, anicteric sclera Mouth: no lip lesion, mucus membranes moist Cardiovascular: S1S2 reg, no murmur, positive posterior tibial pulse bilateral, Lungs: CTA bilateral, no rhonchi, no rales , no accessory muscle use Abdominal: soft, nontender to palpation, no guarding, no appreciable organomegaly Ext: no gross muscle atrophy, no edema, no contractures Neuro: CN II-XI grossly intact, no focal neuro deficits Psych: Alert, oriented, appropriate affect Assessment and plan of care: C. diff with first recurrence -Clear liquid diet -Continued IV hydration with D5.45 in 100 mL's per hour. -Antibiotics: Continuation of Fidaxomicin -Infectious disease consulted appreciate further recommendations -Repeat a.m. labs for close monitoring of electrolyte values secondary to persistent diarrhea. Metastatic colon cancer -Continue to follow up outpatient with Dr. Andrade CODE STATUS: Full Code DVT prophylaxis: Heparin Discussed with: Patient and RN Anticipated discharge date: Possibly tomorrow morning Anticipated discharge place: Home Objective - Vital Signs Vital signs: Vital Signs Temp 98.4 F 03/27/22 04:11 Pulse 74 03/27/22 04:11 Resp 16 03/27/22 04:11 BP 109/74 03/27/22 04:11 Pulse Ox 98 03/27/22 04:11 Intake & Output 03/26/22 03/27/22 03/27/22 18:59 06:59 18:59 Weight 64.864 kg Other: Voiding Method Toilet # Voids 3 # Bowel Movements 4 - Labs CBC & Chem 7: 03/27/22 06:48 03/27/22 06:48 Labs: Abnormal Lab Results - Last 24 Hours (Table) 03/26/22 Range/Units 07:08 Anion Gap 6.40 L (10.00-18.00) mmol/L BUN 8.6 L (9.0-27.0) mg/dL BUN/Creatinine Ratio 7.82 L (12.00-20.00) Ratio Glucose 118 H (70-110) mg/dL Calcium 8.1 L (8.7-10.3) mg/dL Microbiology - Last 24 Hours (Table) 03/26/22 15:00 Stool Culture - Preliminary Stool
[2022-03-28] MEDS: CHOLESTYRAMINE (WITH SUGAR) 4 GM PACKET PO SCH (08:16)
[2022-03-28] MEDS: LACTOBACILLUS ACIDOPH & BULGAR 1 EACH PACKET PO SCH (08:16)
[2022-03-28] MEDS: MULTIVITAMINS, THERA 1 EACH TAB PO SCH (08:16)
[2022-03-28] MEDS: ASPIRIN 81 MG PO SCH (08:16)
[2022-03-28] MEDS: FIDAXOMICIN 200 MG TABLET PO SCH (08:16)
[2022-03-28] MEDS: DEXTROSE 5%-0.45% NACL 1,000 ML IV SCH (10:56)
[2022-03-28 12:23] VITALS: BP 103/65; PULSE 77; TEMP 97.8
--- NOTE | 2022-03-28 12:35 | P.DS ---
Providers Date of admission: 03/22/22 11:55 Expected date of discharge: 03/28/22 Attending physician: Omid Flores MD Consults: 03/23/22 13:53 Consult Physician Routine Consulting Provider: Elizabeth Soto Consult Reason/Comments: c.diff Do you want consulting provider notified?: Yes Primary care physician: Amaury Pulido MD Hospital Course: Discharge Diagnosis: C. diff with first recurrence. Antibiotics: Continuation of Fidaxomicin Metastatic colon cancer. Continue to follow up outpatient with Dr. Andrade, it is recommended for you to hold off on chemotherapy scheduled this Saturday and reschedule your chemotherapy treatment in one week to allow time to complete full antibiotic regimen for C. diff. Hospital Course: Patient is a 61-year-old male with a PMH of metastatic colon cancer (status post resection with colostomy and subsequent reversal, multiple rounds of chemotherapy, following with Dr. Andrade) who presents to the emergency room with diarrhea. The patient reports that he was initially diagnosed with C. diff colitis roughly 2 weeks ago and was given an oral course of antibiotics which he completed. He reports that after completion, his symptoms had initially improved, only to worsen again 2 days ago. He reports upwards of 20-30 BMs daily for the past 48 hours denies any blood in the bowl movements. Denied expressing nausea or vomiting. Also denied fever, chills, chest pain, shortness of breath. Laboratory evaluation in the emergency room was positive for C. diff with platelet count 594. Patient received last dose of chemo 2 weeks ago and this is his fifth round of chemo second dose with next dose due 03/30/22. Patient was admitted under our services. Patient initially started back on vancomycin and Flagyl with no improvement. Infectious disease consulted and patient started on antibiotic Fidaxomicin. Patient's diet slowly increased back to normal and diarrhea became under control. Patient reports only having approximately 3 episodes of diarrhea over the past 24 hours. Infectious disease recommending patient being discharged home with an additional 10 day course of Fidaxomicin. Preauthorization was sent to patient's insurance and authorization received for patient to continue this medication. Patient medically stable for discharge home at this time, he is recommended to hold off on scheduled chemotherapy for 03/30/22 and reschedule once completion of entire course of Fidaxomicin for recurrent C. diff. Patient to follow up outpatient with PCP and continue to follow with oncology. Physical examination: General: non toxic, no distress, appears at stated age Derm: warm, dry Head: atraumatic, normocephalic, symmetric Eyes: EOMI, no lid lag, anicteric sclera Mouth: no lip lesion, mucus membranes moist Cardiovascular: S1S2 reg, no murmur, positive posterior tibial pulse bilateral, Lungs: CTA bilateral, no rhonchi, no rales , no accessory muscle use Abdominal: soft, nontender to palpation, no guarding, no appreciable organomegaly Ext: no gross muscle atrophy, no edema, no contractures Neuro: CN II-XI grossly intact, no focal neuro deficits Psych: Alert, oriented, appropriate affect A total of 33 minutes of time were spent preparing this complex discharge summary. Pt was discharged on 03/28/22 at 10:01 AM Patient Condition at Discharge: Stable Plan - Discharge Summary Discharge Rx Participant: Yes New Discharge Prescriptions: New RX: Fidaxomicin [Dificid] 200 mg PO BID 10 Days #20 tablet RX: Lactobacillus Acidoph & Bulgar [Lactinex] 1 each PO TID 30 Days #90 pac ket Continue RX: Cholestyramine (with Sugar) [Cholestyramine Packet] 4 gm PO BID RX: Multivitamins, Thera [Multivitamin (formulary)] 1 tab PO DAILY RX: Diphenox-Atrop 2.5-0.025 mg [Lomotil] 1 tab PO TID PRN PRN Reason: Diarrhea RX: Aspirin EC [Ecotrin Low Dose] 81 mg PO DAILY Discharge Medication List RX: Aspirin EC [Ecotrin Low Dose] 81 mg PO DAILY 03/01/22 [History] RX: Diphenox-Atrop 2.5-0.025 mg [Lomotil] 1 tab PO TID PRN 03/01/22 [History] RX: Multivitamins, Thera [Multivitamin (formulary)] 1 tab PO DAILY 03/01/22 [History] RX: Cholestyramine (with Sugar) [Cholestyramine Packet] 4 gm PO BID 03/21/22 [History] RX: Fidaxomicin [Dificid] 200 mg PO BID 10 Days #20 tablet 03/28/22 [Rx] RX: Lactobacillus Acidoph & Bulgar [Lactinex] 1 each PO TID 30 Days #90 packet 03/28/22 [Rx] Follow up Appointment(s)/Referral(s): Francis Andrade MD [STAFF PHYSICIAN] - 1 Week (patient may call and schedule own ap pt.) Amaury Pulido MD [Primary Care Provider] - 04/05/22 9:00 am Patient Instructions/Handouts: Probiotic (By mouth), Fidaxomicin (By mouth) Activity/Diet/Wound Care/Special Instructions: Activity: As tolerated. Take breaks as needed. Diet: Heart healthy and carb consistent diet. Avoid salts, or foods with hidden salts such as canned or boxed foods and frozen dinners. Extra salt makes your heart work harder and traps the fluid in your body for longer. Special Instructions: Take all of your medications as directed and remember to keep all of your doctor's appointments and follow-up as needed. It is recommended that you hold off on chemotherapy scheduled for Saturday and reschedule in one week after full completion of your antibiotic regimen for your C. diff. I really hope you [place] every [place]...Truly relax and enjoy the beauty of nature and find some absolutely amazing [place] rocks!!!! Thank you for allowing us to participate in your care, it was truly a pleasure having you for my patient!!! And I hope you get to eat that amazing steak you were talking about!!! Discharge Disposition: HOME SELF-CARE
== END 2022-03-28 12:45 | disposition home or self-care (01) | DRG 372 ==
LOC: EC 14:47 → 5NMEDONC 18:22 → OBSVTOIN 03-22 11:55
PROVIDERS: ADMIT Internal Medicine; ATTEND Internal Medicine
DX: A04.71 Enterocolitis due to Clostridium difficile, recurrent (principal); C18.9 Malignant neoplasm of colon, unspecified; C78.7 Secondary malignant neoplasm of liver and intrahepatic bile duct; C78.00 Secondary malignant neoplasm of unspecified lung; E87.6 Hypokalemia; K21.9 Gastro-esophageal reflux disease without esophagitis; N42.9 Disorder of prostate, unspecified; Z28.310 Unvaccinated for COVID-19; Z79.82 Long term (current) use of aspirin; Z79.899 Other long term (current) drug therapy; Z95.2 Presence of prosthetic heart valve; Z90.49 Acquired absence of other specified parts of digestive tract; Z98.890 Other specified postprocedural states; Z92.3 Personal history of irradiation; Z87.19 Personal history of other diseases of the digestive system; Z88.2 Allergy status to sulfonamides; Z80.9 Family history of malignant neoplasm, unspecified
CPT/HCPCS: 36415; 74177; 80048; 80053; 81003; 82150; 83690; 83735; 85025; 85027; 87045; 87046; 87324; 96360; 96361; 99285

== ENCOUNTER 2022-06-30 23:52 | Inpatient (IN) | payer MEDICARE, OTHER ==
[2022-07-01] MEDS ORDERED: HYDROmorphone 0.5 MG/0.5 ML SYRINGE IVP STA ×2 (01:04→04:48)
--- NOTE | 2022-07-01 01:49 | CT ---
EXAMINATION TYPE: CT abdomen pelvis wo con DATE OF EXAM: 07/01/2022 COMPARISON: 03/22/2022 HISTORY: pain CT DLP: 430.4 mGycm Automated exposure control for dose reduction was used. Images obtained from the diaphragm to the floor the pelvis with no contrast. There are numerous hypodensities in the liver consistent with metastatic disease. There are surgical clips in the anterior right lobe of the liver. Liver lesions measure up to almost 4 cm. Spleen is abs ent. The stomach is intact. No pancreatic mass. The bile ducts are not dilated. Gallbladder appears n ormal. There is anterior epigastric ventral hernia contains transverse colon. There is lower anterior abdominal wall ventral hernia containing small and large bowel. There are multiple surgical clips in the large bowel in the mid abdomen. There is no adrenal mass. Kidneys have normal size. No hydronephrosis. There are bilateral renal calc ingrid up to 5 mm. The ureters are not dilated. No retroperitoneal adenopathy. There is calcifications i n the prostate. There is previous surgery at the rectum. There is small amount of low-density free fl uid in the pelvis. No sign of a bowel obstruction. The lumbar vertebra appear intact. No compression fracture. Bony pelvis is intact. There is narrowing at the L5-S1 disc space with spurring. There is vacuum disc. The bony pelvis is intact. The hip join ts are intact. Sternum is intact. IMPRESSION: Hepatic metastatic disease with multiple hypodense areas that appear increased in size compared to ol d CT scan and consistent with progression of disease. Epigastric ventral hernia increased compared to old exam. Lower anterior abdominal wall ventral herni a containing large and small bowel also increased. Previous surgery. No bowel obstruction. There is small amount of abdominal ascites fluid which is new compared to old exam
[2022-07-01 02:06] LABS: Albumin 3.5 g/dL (3.5-5.0); Anisocytosis Slight; Basophils % (A) 0 %; Calcium 8.5 mg/dL (8.4-10.2); Eosinophils % (A) 0 %; HCT 37.9 % (39.0-53.0); HGB 11.4 gm/dL (13.0-17.5); Hypochromasia Marked; Lymphocytes # (A) 0.6 k/uL (1.0-4.8); Lymphocytes % (A) 5 %; MCHC 30.2 g/dL (31.0-37.0); MCV 82.7 fL (80.0-100.0); Mean Platelet Volume 7.7; Microcytosis Slight; Monocytes # (A) 0.1 k/uL (0-1.0); Monocytes % (A) 1 %; Neutrophils # (A) 9.8 k/uL (1.3-7.7); Neutrophils % (A) 93 %; Platelet Count 580 k/uL (150-450); RBC 4.58 m/uL (4.30-5.90); RDW 19.1 % (11.5-15.5); Total Bilirubin 0.5 mg/dL (0.2-1.3); Total Protein 6.2 g/dL (6.3-8.2); WBC 10.6 k/uL (3.8-10.6)
[2022-07-01 03:36] LABS: Appearance,Urine Cloudy (Clear); Bacteria,Urine Rare /hpf; Bilirubin,Urine Negative (Negative); Blood,Urine Negative (Negative); Color,Urine Yellow; Glucose,Urine (UA) Negative (Negative); Hyaline Casts,Urine 5 /lpf (0-2); Ketones,Urine Trace (Negative); Leukocyte Esterase,Urine Negative (Negative); Mucus,Urine Rare /hpf; Nitrite,Urine Negative (Negative); PH, Urine 5.5 (5.0-8.0); Protein,Urine 1+ (Negative); RBC,Urine <1 /hpf (0-5); Specific Gravity,Urine 1.025 (1.001-1.035); Uric Acid Crystals,Urine Rare /hpf; Urobilinogen,Urine <2.0 mg/dL (<2.0); WBC,Urine 3 /hpf (0-5)
[2022-07-01] MEDS ORDERED: NALOXONE 0.4 MG/ML 1 ML VIAL IV PRN (06:36)
--- NOTE | 2022-07-01 06:44 | ED ---
Abdominal Pain HPI - General Chief Complaint: Abdominal Pain Stated Complaint: Abdominal pain Time Seen by Provider: 07/01/22 00:31 Source: patient, EMS Mode of arrival: EMS Limitations: no limitations - History of Present Illness Initial Comments: This patient is 61-year-old man presenting with increasingly severe lower abdominal pain. Patient states slightly greater on left than right side. He has had some nausea. Has not noted change in urination or bowel movement. Patient was brought here by ambulance which called after the pain became very severe. He did have morphine and Zofran which did provide some relief. MD Complaint: abdominal pain Onset/Timin -: days(s) Location: LLQ, RLQ Radiation: none Migration to: no migration Severity: severe Quality: cramping, sharp Consistency: constant Improves With: nothing Worsens With: nothing Associated Symptoms: denies other symptoms - Related Data Home Medications Medication Instructions Recorded Confirmed Lactobacillus Acidoph & Bulgar 1 packet PO TID 07/06/22 07/06/22 [Lactinex] Multivitamins, Thera [Multivitamin 1 tab PO DAILY 07/06/22 07/06/22 (formulary)] Previous Rx's Medication Instructions Recorded HYDROcodone/APAP 5-325MG [[place] 1 tab PO Q6HR PRN 3 Days #12 tab 07/03/22 5-325] Lactulose [Cephulac] 20 gm PO DAILY PRN 30 Days #1000 ml 07/03/22 Sennosides [Senokot] 8.6 mg PO DAILY #30 tab 07/03/22 Allergies Allergy/AdvReac Type Severity Reaction Status Date / Time Sulfa (Sulfonamide Allergy Anaphylaxis Verified 07/06/22 14:20 Antibiotics) Review of Systems ROS Statement: Those systems with pertinent positive or pertinent negative responses have been documented in the HPI. ROS Other: All systems not noted in ROS Statement are negative. Constitutional: Denies: fever, chills Respiratory: Denies: cough, dyspnea Cardiovascular: Denies: chest pain, palpitations, edema Gastrointestinal: Reports: abdominal pain, nausea. Denies: vomiting, diarrhea, constipation, melena, hematochezia Genitourinary: Denies: dysuria, hematuria, testicular pain, testicular mass Musculoskeletal: Denies: back pain Skin: Denies: rash Neurological: Denies: headache, weakness, numbness Past Medical History Past Medical History: Cancer, GERD/Reflux, Prostate Disorder Additional Past Medical History / Comment(s): colon cancer-LAST CHEMO ON 03/16/22. GI BLEED MARCH 2020 History of Any Multi-Drug Resistant Organisms: C-DIFF Date of last positivie culture/infection: 03/21/2022 MDRO Source:: stool Past Surgical History: Bowel Resection, Cardiac Valve Replacement Additional Past Surgical History / Comment(s): liver/rectal colon cancer,. COLONOSCOPY. colostomy reversal January 2022, removed section of liver in 2018 Past Anesthesia/Blood Transfusion Reactions: No Reported Reaction Past Psychological History: No Psychological Hx Reported Smoking Status: Never smoker Past Alcohol Use History: None Reported Past Drug Use History: None Reported - Past Family History Father Family Medical History: Cancer Mother Family Medical History: Osteoarthritis (OA) General Exam Limitations: no limitations General appearance: alert, in no apparent distress Head exam: Present: atraumatic, normocephalic Eye exam: Present: normal appearance. Absent: scleral icterus, conjunctival injection Neck exam: Present: normal inspection Respiratory exam: Present: normal lung sounds bilaterally. Absent: respiratory distress, wheezes, rales, rhonchi, stridor Cardiovascular Exam: Present: regular rate, normal rhythm, normal heart sounds. Absent: systolic murmur, diastolic murmur, rubs, gallop GI/Abdominal exam: Present: soft, tenderness. Absent: distended, guarding, rebound, rigid, mass, pulsatile mass, hernia Extremities exam: Present: normal inspection, normal capillary refill. Absent: pedal edema, calf tenderness Back exam: Present: normal inspection. Absent: CVA tenderness (R), CVA tenderness (L) Neurological exam: Present: alert Skin exam: Present: warm, dry, intact, normal color. Absent: rash Course Vital Signs 06/30/22 07/01/22 07/01/22 23:58 05:03 07:07 Temperature 98.3 F Pulse Rate 98 86 91 Respiratory 16 16 18 Rate Blood Pressure 147/97 139/100 126/94 O2 Sat by Pulse 100 97 98 Oximetry Medical Decision Making - Medical Decision Making Patient is 61-year-old man with intractable abdominal pain. History of metastatic colon cancer. Workup reveals that the patient does have incisional hernia in the area of his pain however does not appear to be incarcerated. CT also notes what appears to be progression of his metastatic disease. Given the intractable pain will admit patient, have surgery see the patient regarding abdominal pain and also inform oncology. - Lab Data Result diagrams: 07/03/22 04:04 07/02/22 04:19 Lab Results 07/01/22 07/01/22 07/01/22 Range/Units 00:31 00:31 01:03 WBC 10.6 (3.8-10.6) k/uL RBC 4.58 (4.30-5.90) m/uL Hgb 11.4 L (13.0-17.5) gm/dL Hct 37.9 L (39.0-53.0) % MCV 82.7 (80.0-100.0) fL MCH 25.0 (25.0-35.0) pg MCHC 30.2 L (31.0-37.0) g/dL RDW 19.1 H (11.5-15.5) % Plt Count 580 H (150-450) k/uL MPV 7.7 Neutrophils % 93 % Lymphocytes % 5 % Monocytes % 1 % Eosinophils % 0 % Basophils % 0 % Neutrophils # 9.8 H (1.3-7.7) k/uL Lymphocytes # 0.6 L (1.0-4.8) k/uL Monocytes # 0.1 (0-1.0) k/uL Eosinophils # 0.0 (0-0.7) k/uL Basophils # 0.0 (0-0.2) k/uL Hypochromasia Marked Anisocytosis Slight Microcytosis Slight Sodium 141 (137-145) mmol/L Potassium 4.0 (3.5-5.1) mmol/L Chloride 107 (98-107) mmol/L Carbon Dioxide 23 (22-30) mmol/L Anion Gap 11 mmol/L BUN 29 H (9-20) mg/dL Creatinine 1.25 (0.66-1.25) mg/dL Est GFR (CKD-EPI)AfAm 71 (>60 ml/min/1.73 sqM) Est GFR (CKD-EPI)NonAf 62 (>60 ml/min/1.73 sqM) Glucose 127 H (74-99) mg/dL Plasma Lactic Acid Han 1.7 (0.7-2.0) mmol/L Calcium 8.5 (8.4-10.2) mg/dL Total Bilirubin 0.5 (0.2-1.3) mg/dL AST 63 H (17-59) U/L ALT 24 (4-49) U/L Alkaline Phosphatase 138 H (38-126) U/L Total Protein 6.2 L (6.3-8.2) g/dL Albumin 3.5 (3.5-5.0) g/dL Amylase 83 (30-110) U/L Lipase 160 (23-300) U/L Urine Color Urine Appearance (Clear) Urine pH (5.0-8.0) Ur Specific [place] (1.001-1.035) Urine Protein (Negative) Urine Glucose (UA) (Negative) Urine Ketones (Negative) Urine Blood (Negative) Urine Nitrite (Negative) Urine Bilirubin (Negative) Urine Urobilinogen (<2.0) mg/dL Ur Leukocyte Esterase (Negative) Urine RBC (0-5) /hpf Urine WBC (0-5) /hpf Uric Acid Crystals (None) /hpf Urine Bacteria (None) /hpf Hyaline Casts (0-2) /lpf Urine Mucus (None) /hpf 07/01/22 Range/Units 03:20 WBC (3.8-10.6) k/uL RBC (4.30-5.90) m/uL Hgb (13.0-17.5) gm/dL Hct (39.0-53.0) % MCV (80.0-100.0) fL MCH (25.0-35.0) pg MCHC (31.0-37.0) g/dL RDW (11.5-15.5) % Plt Count (150-450) k/uL MPV Neutrophils % % Lymphocytes % % Monocytes % % Eosinophils % % Basophils % % Neutrophils # (1.3-7.7) k/uL Lymphocytes # (1.0-4.8) k/uL Monocytes # (0-1.0) k/uL Eosinophils # (0-0.7) k/uL Basophils # (0-0.2) k/uL Hypochromasia Anisocytosis Microcytosis Sodium (137-145) mmol/L Potassium (3.5-5.1) mmol/L Chloride (98-107) mmol/L Carbon Dioxide (22-30) mmol/L Anion Gap mmol/L BUN (9-20) mg/dL Creatinine (0.66-1.25) mg/dL Est GFR (CKD-EPI)AfAm (>60 ml/min/1.73 sqM) Est GFR (CKD-EPI)NonAf (>60 ml/min/1.73 sqM) Glucose (74-99) mg/dL Plasma Lactic Acid Han (0.7-2.0) mmol/L Calcium (8.4-10.2) mg/dL Total Bilirubin (0.2-1.3) mg/dL AST (17-59) U/L ALT (4-49) U/L Alkaline Phosphatase (38-126) U/L Total Protein (6.3-8.2) g/dL Albumin (3.5-5.0) g/dL Amylase (30-110) U/L Lipase (23-300) U/L Urine Color Yellow Urine Appearance Cloudy (Clear) Urine pH 5.5 (5.0-8.0) Ur Specific [place] 1.025 (1.001-1.035) Urine Protein 1+ H (Negative) Urine Glucose (UA) Negative (Negative) Urine Ketones Trace H (Negative) Urine Blood Negative (Negative) Urine Nitrite Negative (Negative) Urine Bilirubin Negative (Negative) Urine Urobilinogen <2.0 (<2.0) mg/dL Ur Leukocyte Esterase Negative (Negative) Urine RBC <1 (0-5) /hpf Urine WBC 3 (0-5) /hpf Uric Acid Crystals Rare H (None) /hpf Urine Bacteria Rare H (None) /hpf Hyaline Casts 5 H (0-2) /lpf Urine Mucus Rare H (None) /hpf Disposition Clinical Impression: Abdominal pain Disposition: ADMITTED IP TO THIS HOSP Condition: Fair Is patient prescribed a controlled substance at d/c from ED?: No
[2022-07-01] MEDS: MULTIVITAMINS, THERA 1 EACH TAB PO SCH (07:45)
[2022-07-01] MEDS: LACTOBACILLUS ACIDOPH & BULGAR 1 EACH PACKET PO SCH ×3 (07:45→21:40)
[2022-07-01] MEDS: ASPIRIN 81 MG PO SCH (07:45)
[2022-07-01] MEDS: ONDANSETRON 4 MG/2 ML VIAL IVP PRN ×2 (09:17→15:40)
[2022-07-01] MEDS: HYDROmorphone 0.5 MG/0.5 ML SYRINGE IVP PRN ×4 (09:18→23:17)
[2022-07-01] MEDS: SODIUM CHLORIDE 0.9% 1,000 ML IV SCH ×2 (09:18→21:42)
[2022-07-01] MEDS ORDERED: MAGNESIUM CITRATE 296 ML BOTTLE PO ONE (09:51)
--- NOTE | 2022-07-01 10:07 | P.GSCN ---
History of Present Illness Consult date: 07/01/22 History of present illness: 61-year-old male presents to the emergency department with severe lower abdominal pain. He is known to have a history of colon cancer for which he did undergo a colectomy with ostomy creation and then did undergo chemotherapy. He states that he did have metastasis to the liver. He states that he did undergo an ostomy reversal, however there was a leak at the anastomosis that required additional surgical exploration and repair. This occurred while he was recovering in [facility] and he was in the hospital for approximatel y 2 months secondary to sepsis from this occurrence. On recent workup, he is following with oncology and was noted to have additional liver metastases and possibility of lung involvement. He is currently receiving chemotherapy and his last treatment was on Saturday. He states that this pain developed within 48 hours of his chemo treatment. He states that he also had some vomiting episodes. On workup, the patient has normal WBCs, no evidence of lactic acidosis. CT of the abdomen and pelvis was performed that does show a large likely incisional hernia of the lower abdomen with no evidence of bowel obstruction. The CT also does illustrated a significant amount of stool burden. Review of Systems All systems: negative Past Medical History Past Medical History: Cancer, GERD/Reflux, Prostate Disorder Additional Past Medical History / Comment(s): colon cancer-LAST CHEMO ON 03/16/22. GI BLEED MARCH 2020 possible lung Mets History of Any Multi-Drug Resistant Organisms: C-DIFF Year Discovered:: 03/21/2022 MDRO Source:: stool Past Surgical History: Bowel Resection, Cardiac Valve Replacement Additional Past Surgical History / Comment(s): liver/rectal colon cancer,. COLONOSCOPY. colostomy reversal January 2022, removed section of liver in 2018 Past Anesthesia/Blood Transfusion Reactions: No Reported Reaction Past Psychological History: No Psychological Hx Reported Smoking Status: Never smoker Past Alcohol Use History: None Reported Past Drug Use History: None Reported - Past Family History Father Family Medical History: Cancer Mother Family Medical History: Osteoarthritis (OA) Medications and Allergies Home Medications Medication Instructions Recorded Confirmed Type Aspirin EC [Ecotrin Low Dose] 81 mg PO DAILY 03/01/22 03/21/22 History Diphenox-Atrop 2.5-0.025 mg 1 tab PO TID PRN 03/01/22 03/21/22 History [Lomotil] Multivitamins, Thera [Multivitamin 1 tab PO DAILY 03/01/22 03/21/22 History (formulary)] Cholestyramine (with Sugar) 4 gm PO BID 03/21/22 03/21/22 History [Cholestyramine Packet] Fidaxomicin [Dificid] 200 mg PO BID 10 Days #20 tablet 03/28/22 Rx Lactobacillus Acidoph & Bulgar 1 each PO TID 30 Days #90 packet 03/28/22 Rx [Lactinex] Allergies Allergy/AdvReac Type Severity Reaction Status Date / Time Sulfa (Sulfonamide Allergy Anaphylaxis Verified 03/21/22 20:48 Antibiotics) Surgical - Exam Osteopathic Statement: *. No significant issues noted on an osteopathic structural exam other than those noted in the History and Physical/Consult. Vital Signs Temp Pulse Resp BP Pulse Ox 98.3 F 98 16 147/97 100 06/30/22 23:58 06/30/22 23:58 06/30/22 23:58 06/30/22 23:58 06/30/22 23:58 - General well developed, well nourished - Eyes normal ocular movement - ENT no hearing loss - Neck trachea midline - Respiratory normal respiratory effort - Abdomen Soft, tender to palpation in lower abdomen, nondistended, no rebound, no guarding, well-healed surgical scars - Psychiatric oriented to time, oriented to person, oriented to place Results - Labs 07/01/22 00:31 07/01/22 00:31 Abnormal Lab Results - Last 24 Hours (Table) 07/01/22 07/01/22 07/01/22 Range/Units 00:31 00:31 03:20 Hgb 11.4 L (13.0-17.5) gm/dL Hct 37.9 L (39.0-53.0) % MCHC 30.2 L (31.0-37.0) g/dL RDW 19.1 H (11.5-15.5) % Plt Count 580 H (150-450) k/uL Neutrophils # 9.8 H (1.3-7.7) k/uL Lymphocytes # 0.6 L (1.0-4.8) k/uL BUN 29 H (9-20) mg/dL Glucose 127 H (74-99) mg/dL AST 63 H (17-59) U/L Alkaline Phosphatase 138 H (38-126) U/L Total Protein 6.2 L (6.3-8.2) g/dL Urine Protein 1+ H (Negative) Urine Ketones Trace H (Negative) Uric Acid Crystals Rare H (None) /hpf Urine Bacteria Rare H (None) /hpf Hyaline Casts 5 H (0-2) /lpf Urine Mucus Rare H (None) /hpf Diabetes panel 07/01/22 Range/Units 00:31 Sodium 141 (137-145) mmol/L Potassium 4.0 (3.5-5.1) mmol/L Chloride 107 (98-107) mmol/L Carbon Dioxide 23 (22-30) mmol/L BUN 29 H (9-20) mg/dL Creatinine 1.25 (0.66-1.25) mg/dL Glucose 127 H (74-99) mg/dL Calcium 8.5 (8.4-10.2) mg/dL AST 63 H (17-59) U/L ALT 24 (4-49) U/L Alkaline Phosphatase 138 H (38-126) U/L Total Protein 6.2 L (6.3-8.2) g/dL Albumin 3.5 (3.5-5.0) g/dL Calcium panel 07/01/22 Range/Units 00:31 Calcium 8.5 (8.4-10.2) mg/dL Albumin 3.5 (3.5-5.0) g/dL Pituitary panel 07/01/22 Range/Units 00:31 Sodium 141 (137-145) mmol/L Potassium 4.0 (3.5-5.1) mmol/L Chloride 107 (98-107) mmol/L Carbon Dioxide 23 (22-30) mmol/L BUN 29 H (9-20) mg/dL Creatinine 1.25 (0.66-1.25) mg/dL Glucose 127 H (74-99) mg/dL Calcium 8.5 (8.4-10.2) mg/dL Adrenal panel 07/01/22 Range/Units 00:31 Sodium 141 (137-145) mmol/L Potassium 4.0 (3.5-5.1) mmol/L Chloride 107 (98-107) mmol/L Carbon Dioxide 23 (22-30) mmol/L BUN 29 H (9-20) mg/dL Creatinine 1.25 (0.66-1.25) mg/dL Glucose 127 H (74-99) mg/dL Calcium 8.5 (8.4-10.2) mg/dL Total Bilirubin 0.5 (0.2-1.3) mg/dL AST 63 H (17-59) U/L ALT 24 (4-49) U/L Alkaline Phosphatase 138 H (38-126) U/L Total Protein 6.2 L (6.3-8.2) g/dL Albumin 3.5 (3.5-5.0) g/dL Assessment and Plan Plan: 61-year-old male with significant abdominal pain with history of metastatic colon cancer, currently undergoing chemotherapy. On review of the CT of the abdomen and pelvis, he is noted to have a large incisional hernia, however there is no sign of obstruction and this is a wide mouth hernia. He is noted to have significant amount of stool burden throughout the colon. Currently, he is not showing signs of ischemic bowel or any significant colitis. It does not appear that the large incisional hernia is the cause of the patient's sudden pain as there are no signs of obstruction or strangulation. As the patient did have recent chemo therapy within 48 hours of this sudden onset of pain and significant stool burden, it is possible that patient has had some decreased motility after chemo. We will begin the patient on laxatives and stool softeners. I will continue to follow closely for any changes in exam. I did discuss this with the patient and the patient's family at bedside. Patient's actively undergoing chemotherapy are at high risk for postoperative complications after surgery. At this point, there does not appear to be a surgical cause of pain and we will continue to monitor for any changes that may require any surgical intervention.
[2022-07-01] MEDS: LACTULOSE 20 GM/30 ML CUP PO SCH ×2 (11:09→19:57)
[2022-07-01] MEDS: SENNOSIDES 8.6 MG TAB PO SCH (11:09)
--- NOTE | 2022-07-01 13:42 | P.CONS ---
History of Present Illness - Reason for Consult Consult date: 07/01/22 Metastatic colon cancer - Chief Complaint Dr. Mcknight - History of Present Illness Mr. Garrison is a 61-year-old gentleman with a past medical history significant for metastatic colon cancer with metastases to the liver currently on palliative irinotecan and bevacizumab (last on 06/29/2022) who presented to the ED with acute abdominal pain. He noted this started yesterday evening approximately 2 hours after eating dinner. He had steak and corn. After dinner, he noted progressive abdominal pain in the right and lower quadrants bilaterally, but was noted to be worse in the left lower quadrant. He did have associated nausea along with 2 episodes of vomiting. He was not able to tell if there were bloody or bilious. His last bowel movement was approximately 1.5 days ago. Given the progressive abdominal pain along with nausea and vomiting, he presented to the ED for additional evaluation. CT abdomen and pelvis without contrast performed on 07/01/2022 was noted with lower anterior abdominal wall ventral hernia and had increased in size prior to last CT imaging in March 2022. There is no evidence of obstruction. Upon review, there was significant dilation of loops of large bowel containing stool. He did also note radiographic progression of metastatic hepatic lesions, which were noted to be increased in size. Labs revealed no acute abnormalities from labs obtained on 06/29/2022. He was started on pain and antiemetic treatment and admitted for additional management. Review of Systems 14 point review of systems conducted with pertinent positives and negatives as noted per HPI Past Medical History Past Medical History: Cancer, GERD/Reflux, Prostate Disorder Additional Past Medical History / Comment(s): colon cancer-LAST CHEMO ON 03/16/22. GI BLEED MARCH 2020 possible lung Mets History of Any Multi-Drug Resistant Organisms: C-DIFF Year Discovered:: 03/21/2022 MDRO Source:: stool Past Surgical History: Bowel Resection, Cardiac Valve Replacement Additional Past Surgical History / Comment(s): liver/rectal colon cancer,. COLONOSCOPY. colostomy reversal January 2022, removed section of liver in 2018 Past Anesthesia/Blood Transfusion Reactions: No Reported Reaction Past Psychological History: No Psychological Hx Reported Smoking Status: Never smoker Past Alcohol Use History: None Reported Past Drug Use History: None Reported - Past Family History Father Family Medical History: Cancer Mother Family Medical History: Osteoarthritis (OA) Medications and Allergies Home Medications Medication Instructions Recorded Confirmed Type No Known Home Medications 07/01/22 07/01/22 History Allergies Allergy/AdvReac Type Severity Reaction Status Date / Time Sulfa (Sulfonamide Allergy Anaphylaxis Verified 07/01/22 10:49 Antibiotics) Physical Exam Vitals: Vital Signs Temp Pulse Pulse Resp BP BP Pulse Ox 07/01/22 11:22 98.1 F 90 13 126/84 96 07/01/22 08:10 85 14 07/01/22 08:02 98.6 F 85 14 122/81 98 07/01/22 07:07 91 18 126/94 98 07/01/22 05:03 86 16 139/100 97 06/30/22 23:58 98.3 F 98 16 147/97 100 Intake and Output 06/30/22 07/01/22 07/01/22 22:59 06:59 14:59 Other: Voiding Method Toilet Weight 70.76 kg - Constitutional General appearance: average body habitus, mild distress - EENT Eyes: EOMI - Respiratory Respiratory: bilateral: CTA - Cardiovascular Rhythm: regular Heart sounds: normal: S1, S2 - Gastrointestinal General gastrointestinal: distended, hyperactive bowel sounds, tenderness - Integumentary Integumentary: no rash - Neurologic Neurologic: CNII-XII intact - Psychiatric Psychiatric: appropriate affect Results CBC & Chem 7: 07/01/22 00:31 07/01/22 00:31 Labs: Abnormal Lab Results - Last 24 Hours (Table) 07/01/22 07/01/22 07/01/22 Range/Units 00:31 00:31 03:20 Hgb 11.4 L (13.0-17.5) gm/dL Hct 37.9 L (39.0-53.0) % MCHC 30.2 L (31.0-37.0) g/dL RDW 19.1 H (11.5-15.5) % Plt Count 580 H (150-450) k/uL Neutrophils # 9.8 H (1.3-7.7) k/uL Lymphocytes # 0.6 L (1.0-4.8) k/uL BUN 29 H (9-20) mg/dL Glucose 127 H (74-99) mg/dL AST 63 H (17-59) U/L Alkaline Phosphatase 138 H (38-126) U/L Total Protein 6.2 L (6.3-8.2) g/dL Urine Protein 1+ H (Negative) Urine Ketones Trace H (Negative) Uric Acid Crystals Rare H (None) /hpf Urine Bacteria Rare H (None) /hpf Hyaline Casts 5 H (0-2) /lpf Urine Mucus Rare H (None) /hpf CT scan - abdomen: report reviewed, image reviewed Assessment and Plan Assessment: Mr. Garrison is a 59-year-old gentleman with a past medical history significant for metastatic colon cancer with metastases to the liver currently on palliative irinotecan and bevacizumab who presents with acute bilateral lower quadrant abdominal pain following eating. CT abdomen and pelvis on admission reveals dilated loop of large bowel with significant stool burden. It does also appear to reveal progressive increase in the size of hepatic metastases concerning for disease progression. Upon review of his labs from the outpatient setting, his C EA has risen to 3192 on 06/21/2022 compared to a level of > 100 on 03/13/2022. Plan: #Abdominal pain -Given the history, physical exam, and imaging findings is likely that his abdominal pain is secondary to stool burden in the colon -He does not appear to have clinical or radiographic sign of obstruction at this time -Agree with aggressive bowel regimen to produce bowel movement, which I anticipate would improve his abdominal pain significantly -Pain medications and antiemetics per primary team -Appreciate surgery consultation and recommendations #Metastatic colon cancer -Currently on irinotecan and bevacizumab, which he last received on 06/29/2022 -CT imaging on admission is concerning for increased size of hepatic metastases. Moreover, he does have elevation in his CEA over the past 3 months -The increased hepatic metastases are not responsible for his acute abdominal pain this admission -I did not discuss increased size of hepatic metastases with Mr. Garrison at this time due to abdominal discomfort and pain during my encounter -This can be discussed when Mr. Garrison is having less pain and more comfortable -No acute interventions are required from an oncologic perspective at this time
--- NOTE | 2022-07-01 14:34 | P.HPIM ---
History of Present Illness H&P Date: 07/01/22 Chief Complaint: Abdominal pain The patient is a 61-year-old male with a history of metastatic colon cancer.. The patient has metastases to his liver is currently on palliative chemotherapy he last received a dose on June 29. Patient presented to the emergency room complaining of acute abdominal pain that started at 7 PM on the evening prior to presentation. The patient states he ate steak corn on about 12 hours after eating he developed abdominal pain in his right lower quadrant. He felt the pain was worse in his left lower quadrant on states that he also had emesis. The patient rated his pain as 9 out of 10 and relieved only with pain medication was last about 2 hours. The patient had a CT of the abdomen and pelvis was performed without contrast and showed a central hernia increased in size compared to March 2022. There is no evidence of strangulation or obstruction. There was evidence of increased stool burden. There was also evidence of progression of metastatic hepatic lesions. The patient was started on IV Dilaudid and IV Zofran and hospitalized for further workup and management. Review of Systems Complete review of systems done negative other than as stated above Past Medical History Past Medical History: Cancer, GERD/Reflux, Prostate Disorder Additional Past Medical History / Comment(s): colon cancer-LAST CHEMO ON 03/16/22. GI BLEED MARCH 2020 possible lung Mets History of Any Multi-Drug Resistant Organisms: C-DIFF Date of last positivie culture/infection: 03/21/2022 MDRO Source:: stool Past Surgical History: Bowel Resection, Cardiac Valve Replacement Additional Past Surgical History / Comment(s): liver/rectal colon cancer,. COLONOSCOPY. colostomy reversal January 2022, removed section of liver in 2018 Past Anesthesia/Blood Transfusion Reactions: No Reported Reaction Past Psychological History: No Psychological Hx Reported Smoking Status: Never smoker Past Alcohol Use History: None Reported Past Drug Use History: None Reported - Past Family History Father Family Medical History: Cancer Mother Family Medical History: Osteoarthritis (OA) Medications and Allergies Home Medications Medication Instructions Recorded Confirmed Type No Known Home Medications 07/01/22 07/01/22 History Allergies Allergy/AdvReac Type Severity Reaction Status Date / Time Sulfa (Sulfonamide Allergy Anaphylaxis Verified 07/01/22 10:49 Antibiotics) Physical Exam Vitals: Vital Signs Temp Pulse Pulse Resp BP BP Pulse Ox 07/01/22 11:22 98.1 F 90 13 126/84 96 07/01/22 08:10 85 14 07/01/22 08:02 98.6 F 85 14 122/81 98 07/01/22 07:07 91 18 126/94 98 07/01/22 05:03 86 16 139/100 97 06/30/22 23:58 98.3 F 98 16 147/97 100 Intake and Output 06/30/22 07/01/22 07/01/22 22:59 06:59 14:59 Other: Voiding Method Toilet Weight 70.76 kg - Constitutional General appearance: mild distress (Secondary to pain) - EENT Eyes: PERRLA Ears: bilateral: normal - Respiratory Respiratory: bilateral: CTA - Cardiovascular Rhythm: regular - Gastrointestinal General gastrointestinal: normal bowel sounds Localized gastrointestinal: tender: diffuse, RLQ, LLQ - Integumentary Integumentary: normal - Neurologic Neurologic: CNII-XII intact - Musculoskeletal Musculoskeletal: strength equal bilaterally - Psychiatric Psychiatric: A&O x's 3, appropriate affect Results CBC & Chem 7: 07/01/22 00:31 07/01/22 00:31 Labs: Abnormal Lab Results - Last 24 Hours (Table) 07/01/22 07/01/22 07/01/22 Range/Units 00:31 00:31 03:20 Hgb 11.4 L (13.0-17.5) gm/dL Hct 37.9 L (39.0-53.0) % MCHC 30.2 L (31.0-37.0) g/dL RDW 19.1 H (11.5-15.5) % Plt Count 580 H (150-450) k/uL Neutrophils # 9.8 H (1.3-7.7) k/uL Lymphocytes # 0.6 L (1.0-4.8) k/uL BUN 29 H (9-20) mg/dL Glucose 127 H (74-99) mg/dL AST 63 H (17-59) U/L Alkaline Phosphatase 138 H (38-126) U/L Total Protein 6.2 L (6.3-8.2) g/dL Urine Protein 1+ H (Negative) Urine Ketones Trace H (Negative) Uric Acid Crystals Rare H (None) /hpf Urine Bacteria Rare H (None) /hpf Hyaline Casts 5 H (0-2) /lpf Urine Mucus Rare H (None) /hpf CT scan - abdomen: report reviewed Thrombosis Risk Factor Assmnt - Choose All That Apply Each Risk Factor Represents 2 Points: Age 61-74 years Thrombosis Risk Factor Assessment Total Risk Factor Score: 2 Thrombosis Risk Factor Assessment Level: Low Risk Assessment and Plan (1) Abdominal pain Narrative/Plan: Surgery input. No surgical intervention needed at this time. Continue IV Dilaudid and IV Zofran. Continue bowel regimen to Current Visit: Yes Status: Acute Code(s): R10.9 - UNSPECIFIED ABDOMINAL PAIN SNOMED Code(s): 27833014 (2) Metastatic colon cancer to liver Narrative/Plan: Appreciate oncology input. It was noted that patient is not aware of progression of disease will defer to oncologist to discuss it patient as an outpatient. Current Visit: Yes Status: Acute Code(s): C18.9 - MALIGNANT NEOPLASM OF COLON, UNSPECIFIED; C78.7 - SECONDARY MALIG NEOPLASM OF LIVER AND INTRAHEPATIC BILE DUCT SNOMED Code(s): 291778397 Plan: IV Dilaudid for pain control, continue IV Zofran, DVT prophylaxis with Lovenox. Bowel regimen with lactulose and senna
[2022-07-01] MEDS ORDERED: MAGNESIUM HYDROXIDE 2,400 MG/10 ML CUP PO ONE (16:33)
--- NOTE | 2022-07-01 16:35 | P.PN ---
Progress Note - Text Progress Note Date: 07/01/22 Reevaluated patient this afternoon. He was given bowel regimen this morning with no bowel movement since. He states that his pain is about the same as it was this morning. He states more the pain is on the left lower quadrant than the right lower quadrant. Discussed with nursing and plan for milk of magnesia. No evidence of fevers or tachycardia throughout the day. We will continue to monitor and await bowel function with bowel regimen. Yuli Garcia, DO
[2022-07-02] MEDS: HYDROmorphone 0.5 MG/0.5 ML SYRINGE IVP PRN ×5 (03:49→22:33)
--- NOTE | 2022-07-02 09:04 | P.PN ---
Subjective Progress Note Date: 07/02/22 Patient seen and examined at bedside. States he had multiple bowel movements overnight and is feeling much better. He still is having some soreness around the lower abdomen. He states he is now hungry. Objective - Vital Signs Vital signs: Vital Signs Temp 98.2 F 07/02/22 04:09 Pulse 103 H 07/02/22 04:09 Resp 14 07/02/22 04:09 BP 136/89 07/02/22 04:09 Pulse Ox 96 07/02/22 04:09 FiO2 Intake & Output 07/01/22 07/02/22 07/02/22 18:59 06:59 18:59 Intake Total 0 900 Balance 0 900 Intake: Intake, IV Titration 900 Amount Sodium Chloride 0.9% 1, 900 000 ml @ 75 mls/hr IV . [id number] [facility] Rx#:[id number] Oral 0 Other: Voiding Method Toilet # Voids 3 4 # Bowel Movements 0 4 - Constitutional General appearance: Present: cooperative - Gastrointestinal Gastrointestinal Comment(s): Soft, tenderness to palpation in the left lower quadrant much improved from yesterday, no rebound or guarding - Psychiatric Psychiatric: Present: A&O x's 3 - Labs CBC & Chem 7: 07/01/22 00:31 07/01/22 00:31 Assessment and Plan Plan: 61-year-old male with significant abdominal pain. Abdominal pain appears to be improving after patient was started on bowel regimen and having bowel movements. At this point, large incisional hernia is likely not to be repaired in the current setting as the patient is currently actively receiving chemotherapy and wound healing and post surgical healing will be extremely poor.Still no evidence of ischemic bowel or any strangulation. Will advance patient's diet as he appears to be improving clinically.
[2022-07-02 09:12] LABS: HCT 37.6 % (39.6-50.0); HGB 11.1 g/dL (13.0-17.0); MCH 23.8 pg (27.0-32.0); MCHC 29.5 g/dL (32.0-37.0); MCV 80.5 fL (80.0-97.0); Mean Platelet Volume 10.3 fL (9.5-12.2); NRBC Per 100 WBC 0 /100 WBCS (0.0-0.0); Platelet Count 531 X 10*3/uL (140-440); RBC 4.67 X 10*6/uL (4.40-5.60); RDW 22.1 % (11.5-14.5); WBC 10.38 X 10*3/uL (4.50-10.00)
[2022-07-02 09:28] LABS: Anion Gap 13.7 mmol/L (10.00-18.00); BUN/Creat Ratio 20.64 Ratio (12.00-20.00); Blood Urea Nitrogen 22.7 mg/dL (9.0-27.0); Carbon Dioxide 20.4 mmol/L (20.0-27.5); Non-African American GFR(CKD) 71.6 (60.0-200.0); Potassium 4.2 mmol/L (3.5-5.5)
[2022-07-02 09:29] LABS: Calcium 8.9 mg/dL (8.7-10.3)
[2022-07-02] MEDS: ASPIRIN 81 MG PO SCH (09:50)
[2022-07-02] MEDS: MULTIVITAMINS, THERA 1 EACH TAB PO SCH (09:50)
[2022-07-02] MEDS: SENNOSIDES 8.6 MG TAB PO SCH (09:50)
[2022-07-02] MEDS: ENOXAPARIN 40 MG/0.4 ML SYRINGE SQ SCH (09:50)
[2022-07-02] MEDS: LACTULOSE 20 GM/30 ML CUP PO SCH ×2 (09:58→20:25)
[2022-07-02] MEDS: SODIUM CHLORIDE 0.9% 1,000 ML IV SCH ×2 (10:05→20:59)
[2022-07-02] MEDS: LACTOBACILLUS ACIDOPH & BULGAR 1 EACH PACKET PO SCH ×3 (10:07→20:59)
[2022-07-02 11:40] LABS: Basophils # (A) 0.02 X 10*3/uL (0.00-0.10); Basophils % (A) 0.2 %; Eosinophils # (A) 0 X 10*3/uL (0.04-0.35); Eosinophils % (A) 0 %; Howell-Jolly Bodies 2+; Immature Grans, Automated 0.6 %; Lymphocytes # (A) 0.67 X 10*3/uL (0.90-5.00); Lymphocytes % (A) 6.5 %; Monocytes # (A) 0.33 X 10*3/uL (0.20-1.00); Monocytes % (A) 3.2 %; Neutrophils % (A) 89.5 %
--- NOTE | 2022-07-02 13:17 | P.PN ---
Subjective Progress Note Date: 07/02/22 (Delayed charting. Seen at 9:15.) Patient is a 61-year-old male with colon cancer currently on palliative chemotherapy with last dose 06/29, GERD, multiple cases of C. diff, and prior GI bleed who presented to the ER secondary to abdominal pain. In the emergency department he underwent an extensive evaluation. Laboratory analysis was remarkable for hemoglobin of 11.4, platelets 580, AST 63, alkaline phosphatase 138, and protein 6.2. CT abdomen and pelvis demonstrated hepatic metastatic dis ease with multiple hypodensities that appear increased in size, epigastric ventral hernia increased in size, lower anterior abdominal wall ventral hernia containing large and small bowel increased in size, no bowel obstruction, and mild ascites. He was admitted for further management. He was seen by oncology. He was seen by general surgery who felt that his pain was secondary to significant stool burden in conjunction with his hernias. They recommended bowel regiment. Patient had multiple bowel movements between 07/01 and 07/02. Patient seen and examined at bedside. He reports his abdominal pain is lessening but is still present at his hernia site. He denies any nausea or vomiting. He is hungry and would like to eat area he is nervous about going home. We discussed that he likely can go home tomorrow. Eating and drinking and tolerating the pain. General: nontoxic, no distress, appears at stated age Derm: warm, dry Head: atraumatic, normocephalic, symmetric Eyes: EOMI, no lid lag, anicteric sclera Mouth: no lip lesion, mucus membranes moist Cardiovascular: S1S2 reg, no murmur, positive posterior tibial pulse bilateral, Lungs: CTA bilateral, no rhonchi, no rales , no accessory muscle use Abdominal: soft, patient with midline ventral hernia on the lower abdomen which is easily reducible and slightly tender to palpation, no guarding, no appreciable organomegaly Ext: no gross muscle atrophy, no edema, no contractures Neuro: CN II-XI grossly intact, no focal neuro deficits Psych: Alert, oriented, appropriate affect Assessment/plan: Intractable abdominal pain secondary to increased stool burden and fecal stasis -Surgery recommendations appreciated -Continue his lactulose -Increase diet -Pain control Colon cancer with metastatic disease -Oncology recommendations appreciated. Continue outpatient follow-up Anemia and thrombocytosis, both which are improved compared to his baseline -Continue outpatient follow-up Anticipate home in a.m. if tolerating diet. DVT prophylaxis: Lovenox Objective - Vital Signs Vital signs: Vital Signs Temp 98.4 F 07/02/22 11:45 Pulse 99 07/02/22 11:45 Resp 18 07/02/22 11:45 BP 119/79 07/02/22 11:45 Pulse Ox 96 07/02/22 11:45 FiO2 Intake & Output 07/01/22 07/02/22 07/02/22 18:59 06:59 18:59 Intake Total 0 900 Balance 0 900 Intake: Intake, IV Titration 900 Amount Sodium Chloride 0.9% 1, 900 000 ml @ 75 mls/hr IV . [id number] [facility] Rx#:[id number] Oral 0 Other: Voiding Method Toilet # Voids 3 4 # Bowel Movements 0 4 - Labs CBC & Chem 7: 07/02/22 04:19 07/02/22 04:19 Labs: Abnormal Lab Results - Last 24 Hours (Table) 07/02/22 07/02/22 Range/Units 04:19 04:19 WBC 10.38 H (4.50-10.00) X 10*3/uL Hgb 11.1 L (13.0-17.0) g/dL Hct 37.6 L (39.6-50.0) % MCH 23.8 L (27.0-32.0) pg MCHC 29.5 L (32.0-37.0) g/dL RDW 22.1 H (11.5-14.5) % Plt Count 531 H (140-440) X 10*3/uL Plt Count Comment INCREASED A Immature Gran # 0.06 H (0.00-0.04) X 10*3/uL Neutrophils # 9.30 H (1.80-7.70) X 10*3/uL Lymphocytes # 0.67 L (0.90-5.00) X 10*3/uL Eosinophils # 0 L (0.04-0.35) X 10*3/uL BUN/Creatinine Ratio 20.64 H (12.00-20.00) Ratio
--- NOTE | 2022-07-02 14:42 | P.PN ---
Subjective Progress Note Date: 07/02/22 Principal diagnosis: intractable abd pain In f/u today pt still has c/o of lower abd pain, LLQ>RLQ, multiple hernias, told he has a hernia in the area where he is having pain. He reports about 10 BMs since being seen yesterday. No fever or vomiting. Objective - Vital Signs Vital signs: Vital Signs Temp 98.4 F 07/02/22 11:45 Pulse 99 07/02/22 11:45 Resp 18 07/02/22 11:45 BP 119/79 07/02/22 11:45 Pulse Ox 96 07/02/22 11:45 FiO2 Intake & Output 07/01/22 07/02/22 07/02/22 18:59 06:59 18:59 Intake Total 0 900 Balance 0 900 Intake: Intake, IV Titration 900 Amount Sodium Chloride 0.9% 1, 900 000 ml @ 75 mls/hr IV . [id number] [facility] Rx#:[id number] Oral 0 Other: Voiding Method Toilet # Voids 3 4 # Bowel Movements 0 4 - Constitutional General appearance: Present: cooperative, mild distress, thin - EENT Eyes: Present: anicteric sclerae, EOMI ENT: Present: hearing grossly normal, normal oropharynx - Respiratory Respiratory: bilateral: CTA - Cardiovascular Rhythm: regular - Peripheral edema leg Peripheral Edema: bilateral: None - Gastrointestinal Gastrointestinal Comment(s): multiple ventral hernias, around previous surgical incisions General gastrointestinal: Present: normal bowel sounds, soft, tenderness - Neurologic Neurologic: Present: CNII-XII intact - Musculoskeletal Musculoskeletal: Present: generalized weakness, strength equal bilaterally - Psychiatric Psychiatric: Present: A&O x's 3, appropriate affect, intact judgment & insight - Labs CBC & Chem 7: 07/02/22 04:19 07/02/22 04:19 Labs: Abnormal Lab Results - Last 24 Hours (Table) 07/02/22 07/02/22 Range/Units 04:19 04:19 WBC 10.38 H (4.50-10.00) X 10*3/uL Hgb 11.1 L (13.0-17.0) g/dL Hct 37.6 L (39.6-50.0) % MCH 23.8 L (27.0-32.0) pg MCHC 29.5 L (32.0-37.0) g/dL RDW 22.1 H (11.5-14.5) % Plt Count 531 H (140-440) X 10*3/uL Plt Count Comment INCREASED A Immature Gran # 0.06 H (0.00-0.04) X 10*3/uL Neutrophils # 9.30 H (1.80-7.70) X 10*3/uL Lymphocytes # 0.67 L (0.90-5.00) X 10*3/uL Eosinophils # 0 L (0.04-0.35) X 10*3/uL BUN/Creatinine Ratio 20.64 H (12.00-20.00) Ratio - Imaging and Cardiology CT scan - abdomen: report reviewed CT scan - pelvis: report reviewed Assessment and Plan (1) Abdominal pain Current Visit: Yes Status: Acute Priority: High Code(s): R10.9 - UNSPECIFIED ABDOMINAL PAIN SNOMED Code(s): 17633558 (2) Metastatic colon cancer to liver Current Visit: Yes Status: Chronic Priority: Medium Code(s): C18.9 - MALIGNANT NEOPLASM OF COLON, UNSPECIFIED; C78.7 - SECONDARY MALIG NEOPLASM OF LIVER AND INTRAHEPATIC BILE DUCT SNOMED Code(s): 984132280 Plan: Abd pain 2/2 constipation and ventral hernias. He has been seen by Surgeon, notes reviewed. Not belt to be strangulated bowel or obstruction at this time. Pt on chemo and VEGF inhibitor. No surgical intervention planned at this time. An abd binder has been ordered Did review CT AP report and reviewed reports from CT's done January and March 2022. Pt had 2 cycles of chemo from the scans January to March. He has now had 6 total treatments. He is due for chemo and repeat scans next week. Will see if Primary Onc wants repeat scans or if he wants to discuss treatment changes. Will inform pt of plan. attests: I have performed H&P, seen and examined pt, developed impression and plan of care. Discussed with dictator. Agree with documentation, dictated as a scribe.
[2022-07-02 20:39] VITALS: RESP 16
[2022-07-03] MEDS: HYDROmorphone 0.5 MG/0.5 ML SYRINGE IVP PRN (04:05)
[2022-07-03 05:02] LABS: Anisocytosis Slight; HCT 36.7 % (39.0-53.0); HGB 10.5 gm/dL (13.0-17.5); Hypochromasia Marked; MCH 23.9 pg (25.0-35.0); MCHC 28.5 g/dL (31.0-37.0); MCV 83.7 fL (80.0-100.0); Mean Platelet Volume 7.8; Platelet Count 501 k/uL (150-450); RBC 4.39 m/uL (4.30-5.90); WBC 7.6 k/uL (3.8-10.6)
[2022-07-03 05:44] VITALS: BP 132/80; PULSE 92; TEMP 98.7
[2022-07-03] MEDS: ENOXAPARIN 40 MG/0.4 ML SYRINGE SQ SCH (08:18)
[2022-07-03] MEDS: LACTOBACILLUS ACIDOPH & BULGAR 1 EACH PACKET PO SCH (08:18)
[2022-07-03] MEDS: MULTIVITAMINS, THERA 1 EACH TAB PO SCH (08:18)
[2022-07-03] MEDS: SENNOSIDES 8.6 MG TAB PO SCH (08:18)
[2022-07-03] MEDS: ASPIRIN 81 MG PO SCH (08:18)
[2022-07-03] MEDS: SODIUM CHLORIDE 0.9% 1,000 ML IV SCH (10:26)
[2022-07-03] MEDS: LACTULOSE 20 GM/30 ML CUP PO SCH (10:30)
--- NOTE | 2022-07-03 11:27 | P.DS ---
Providers Date of admission: 07/01/22 06:36 Expected date of discharge: 07/03/22 Attending physician: Prasad Mcknight MD Consults: 07/01/22 06:36 Consult Physician Routine Consulting Provider: Yuli Garcia Consult Reason/Comments: Intractable abdominal pain Do you want consulting provider notified?: Yes 07/01/22 06:40 Consult Physician Routine Consulting Provider: Francis Andrade Consult Reason/Comments: Your patient Do you want consulting provider notified?: Yes Primary care physician: Stated None Hospital Course: Discharge Diagnosis: Intractable abdominal pain secondary to increased stool burden and fecal stasis Colon cancer with metastatic disease Anemia and thrombocytosis, both which are improved compared to his baseline Hospital Course: Patient is a 61-year-old male with colon cancer currently on palliative chemotherapy with last dose 06/29, GERD, multiple cases of C. diff, and prior GI bleed who presented to the ER secondary to abdominal pain. In the emergency department he underwent an extensive evaluation. Laboratory analysis was remarkable for hemoglobin of 11.4, platelets 580, AST 63, alkaline phosphatase 138, and protein 6.2. CT abdomen and pelvis demonstrated hepatic metastatic disease with multiple hypodensities that appear increased in size, epigastric ventral hernia increased in size, lower anterior abdominal wall ventral hernia containing large and small bowel increased in size, no bowel obstruction, and mild ascites. He was admitted for further management. He was seen by oncology. He was seen by general surgery who felt that his pain was secondary to significant stool burden in conjunction with his hernias. They recommended bowel regiment. Patient had multiple bowel movements between 07/01 and 07/02. He tolerated a diet well. He was determined stable for discharge home. Follow-up: Patient was given a prescription for [place] to help with his pain, he will wear his abdominal binder when up and ambulating or lifting things, he'll follow up with oncology. Patient seen and examined at bedside. Eating well, still having BM formed but softer, Pain is controlled would like a pain medicatino to go home with Vital signs reviewed and stable. General: nontoxic, no distress, appears at stated age, temporal wasting Derm: warm, dry Head: atraumatic, normocephalic, symmetric Eyes: EOMI, no lid lag, anicteric sclera Mouth: no lip lesion, mucus membranes moist Cardiovascular: S1S2 reg, no murmur, positive posterior tibial pulse bilateral, Lungs: CTA bilateral, no rhonchi, no rales , no accessory muscle use Abdominal: soft, nontender to palpation, no guarding, no appreciable organomegaly, binder in place Ext: no gross muscle atrophy, no edema, no contractures Neuro: CN II-XI grossly intact, no focal neuro deficits Psych: Alert, oriented, appropriate affect A total of 32 minutes of time were spent preparing this complex discharge summary. Patient was discharged on 07/03/22. Patient Condition at Discharge: Fair Plan - Discharge Summary New Discharge Prescriptions: New Lactobacillus Acidoph & Bulgar [Lactinex] 1 each PO TID packet HYDROcodone/APAP 5-325MG [[place] 5-325] 1 tab PO Q6HR PRN 3 Days #12 tab PRN Reason: Pain Lactulose [Cephulac] 20 gm PO DAILY PRN 30 Days #1000 ml PRN Reason: Constipation Multivitamins, Thera [Multivitamin (formulary)] 1 each PO DAILY tab Sennosides [Senokot] 8.6 mg PO DAILY #30 tab Discharge Medication List HYDROcodone/APAP 5-325MG [[place] 5-325] 1 tab PO Q6HR PRN 3 Days #12 tab 07/03/22 [Rx] Lactobacillus Acidoph & Bulgar [Lactinex] 1 each PO TID packet 07/03/22 [Rx] Lactulose [Cephulac] 20 gm PO DAILY PRN 30 Days #1000 ml 07/03/22 [Rx] Multivitamins, Thera [Multivitamin (formulary)] 1 each PO DAILY tab 07/03/22 [Rx] Sennosides [Senokot] 8.6 mg PO DAILY #30 tab 07/03/22 [Rx] Follow up Appointment(s)/Referral(s): Francis Andrade MD [STAFF PHYSICIAN] - 07/13/22 8:00 am (chemo appt) None,Stated [Primary Care Provider] - 1-2 days Patient Instructions/Handouts: Constipation (DC), High Fiber Diet (DC) Activity/Diet/Wound Care/Special Instructions: 07/13/22 at 1 pm-CT CAP at [facility] Activity: as tolerated Diet: high fiber Special Instructions: Take Lactulose if it has been more than 24 hours since last bowel movement. Use abdominal binder when up and walking, especially when lifting anything. Discharge Disposition: HOME SELF-CARE
--- NOTE | 2022-07-03 13:00 | P.PN ---
Subjective Progress Note Date: 07/03/22 Principal diagnosis: intractable abd pain In f/u today pt is pleasantly surprized as how good he feels. Abd pain is better with binder and he is using PRN norco with good results. He has had soft stools x 4, no vomiting. Objective - Vital Signs Vital signs: Vital Signs Temp 98.7 F 07/03/22 05:00 Pulse 92 07/03/22 05:00 Resp 16 07/03/22 05:00 BP 132/80 07/03/22 05:00 Pulse Ox 95 07/03/22 05:00 FiO2 Intake & Output 07/02/22 07/03/22 07/03/22 18:59 06:59 18:59 Intake Total 1850 Balance 1850 Intake: Intake, IV Titration 900 Amount Sodium Chloride 0.9% 1, 900 000 ml @ 75 mls/hr IV . [id number] CHENG Rx#:[id number] Oral 950 Other: Voiding Method Toilet # Voids 2 2 # Bowel Movements 0 - Constitutional General appearance: Present: average body habitus, cooperative, no acute distress - EENT Eyes: Present: anicteric sclerae, EOMI ENT: Present: hearing grossly normal - Respiratory Details: resp even and unlabored - Peripheral edema leg Peripheral Edema: bilateral: None - Gastrointestinal Gastrointestinal Comment(s): abd binder on, BS + General gastrointestinal: Present: soft, ventral hernia - Neurologic Neurologic: Present: CNII-XII intact - Musculoskeletal Musculoskeletal: Present: strength equal bilaterally - Psychiatric Psychiatric: Present: A&O x's 3, appropriate affect, intact judgment & insight - Labs CBC & Chem 7: 07/03/22 04:04 07/02/22 04:19 Labs: Abnormal Lab Results - Last 24 Hours (Table) 07/03/22 Range/Units 04:04 Hgb 10.5 L (13.0-17.5) gm/dL Hct 36.7 L (39.0-53.0) % MCH 23.9 L (25.0-35.0) pg MCHC 28.5 L (31.0-37.0) g/dL RDW 19.0 H (11.5-15.5) % Plt Count 501 H (150-450) k/uL Assessment and Plan (1) Abdominal pain Current Visit: Yes Status: Acute Priority: High Code(s): R10.9 - UNSPECIFIED ABDOMINAL PAIN SNOMED Code(s): 72049605 (2) Metastatic colon cancer to liver Current Visit: Yes Status: Chronic Priority: Medium Code(s): C18.9 - MALIGNANT NEOPLASM OF COLON, UNSPECIFIED; C78.7 - SECONDARY MALIG NEOPLASM OF LIVER AND INTRAHEPATIC BILE DUCT SNOMED Code(s): 171721815 Plan: Abd pain 2/2 constipation and ventral hernias. Was seen by Surgeon, no strangulated bowel or obstruction. No surgical intervention planned at this time. Pt reports sig improvement in pain since putting on binder! Palmer helps with breakthrough pain/cramping. Stool frequency decreased, no watery stool. Briefly discussed with ezio CROSS from Hem/Onc to DC. Pending Primary Onc case review. Told pt he will be contacted with plan-either hold or proceed with chemo next Saturday, any changes in scan date and time. He verbalized understanding. attests: I have performed H&P, seen and examined pt, developed impression and plan of care. Discussed with dictator. Agree with documentation, dictated as a scribe.
== END 2022-07-03 13:58 | disposition home or self-care (01) | DRG 392 ==
LOC: EC 23:52 → 5NMEDONC 07-01 06:36
PROVIDERS: ADMIT Internal Medicine; ATTEND Internal Medicine
DX: K59.00 Constipation, unspecified (principal); R18.8 Other ascites; C78.7 Secondary malignant neoplasm of liver and intrahepatic bile duct; K43.2 Incisional hernia without obstruction or gangrene; D75.839 Thrombocytosis, unspecified; D63.0 Anemia in neoplastic disease; K21.9 Gastro-esophageal reflux disease without esophagitis; N42.9 Disorder of prostate, unspecified; Z79.82 Long term (current) use of aspirin; Z79.899 Other long term (current) drug therapy; Z85.038 Personal history of other malignant neoplasm of large intestine; Z92.21 Personal history of antineoplastic chemotherapy; Z90.49 Acquired absence of other specified parts of digestive tract; Z95.2 Presence of prosthetic heart valve; Z86.19 Personal history of other infectious and parasitic diseases; Z88.2 Allergy status to sulfonamides; Z80.9 Family history of malignant neoplasm, unspecified
CPT/HCPCS: 36415; 74176; 80048; 80053; 81001; 82150; 83605; 83690; 85025; 85027; 96374; 96376; 99285

== ENCOUNTER 2022-07-06 11:41 | Inpatient (IN) | payer MEDICARE, OTHER ==
[2022-07-06] MEDS ORDERED: MORPHINE SULFATE 4 MG/ML SYRINGE IV STA (12:15)
[2022-07-06] MEDS ORDERED: SODIUM CHLORIDE 0.9% 1,000 ML IV STA (12:15)
[2022-07-06 13:22] LABS: Anisocytosis Slight; Basophils % (A) 0 %; Eosinophils % (A) 0 %; HCT 36.5 % (39.0-53.0); HGB 11.4 gm/dL (13.0-17.5); Hypochromasia Marked; Lymphocytes # (A) 0.7 k/uL (1.0-4.8); Lymphocytes % (A) 9 %; MCHC 31.2 g/dL (31.0-37.0); MCV 80.3 fL (80.0-100.0); Mean Platelet Volume 7.9; Microcytosis Slight; Monocytes # (A) 0.2 k/uL (0-1.0); Monocytes % (A) 3 %; Neutrophils # (A) 6.1 k/uL (1.3-7.7); Neutrophils % (A) 86 %; Platelet Count 547 k/uL (150-450); RBC 4.54 m/uL (4.30-5.90); RDW 19.3 % (11.5-15.5); WBC 7.1 k/uL (3.8-10.6)
[2022-07-06 13:32] LABS: ALT 12 U/L (4-49); AST 36 U/L (17-59); African American GFR (CKD) >90 (>60 ml/min/1.73 sqM); Albumin 2.7 g/dL (3.5-5.0); Alkaline Phosphatase 106 U/L (38-126); Amylase 39 U/L (30-110); Anion Gap 9 mmol/L; Blood Urea Nitrogen 22 mg/dL (9-20); Calcium 8.1 mg/dL (8.4-10.2); Carbon Dioxide 27 mmol/L (22-30); Chloride 101 mmol/L (98-107); Glucose 101 mg/dL (74-99); Lipase 33 U/L (23-300); Non-African American GFR(CKD) >90 (>60 ml/min/1.73 sqM); Potassium 3.7 mmol/L (3.5-5.1); Sodium 137 mmol/L (137-145); Total Bilirubin 0.4 mg/dL (0.2-1.3); Total Protein 5.2 g/dL (6.3-8.2)
[2022-07-06] MEDS ORDERED: ONDANSETRON 4 MG/2 ML VIAL IVP STA (13:49)
[2022-07-06] MEDS ORDERED: PANTOPRAZOLE 40 MG/10 ML VIAL IVP ONE (13:59)
--- NOTE | 2022-07-06 15:26 | ED ---
General Adult HPI - General Chief complaint: Abdominal Pain Stated complaint: ABD PAIN, nausea Time Seen by Provider: 07/06/22 12:07 Source: patient, RN notes reviewed, old records reviewed Mode of arrival: EMS Limitations: no limitations - History of Present Illness Initial comments: Patient is a 61-year-old male with past medical history remarkable for metastatic colon cancer on palliative chemotherapy, chronic abdominal hernias, prior GI bleed secondary to stomach ulcers who presents emergency Department complaining of intractable abdominal pain since discharge 3 days ago as well as nausea and vomiting. Initially states the emesis was not dark. Not bloody. Denies any change in bowel movements, as they have chronically been soft and brown. Denies any dark stools. Endorses pain over his lower abdominal hernia. Denies any skin changes over the site. Denies any chest pain, shortness of breath. Denies any fevers or chills. Denies any urinary complaints. Presents for reevaluation following continued symptoms despite discharge home. - Related Data Home Medications Medication Instructions Recorded Confirmed Lactobacillus Acidoph & Bulgar 1 packet PO TID 07/06/22 07/06/22 [Lactinex] Multivitamins, Thera [Multivitamin 1 tab PO DAILY 07/06/22 07/06/22 (formulary)] Previous Rx's Medication Instructions Recorded HYDROcodone/APAP 5-325MG [[place] 1 tab PO Q6HR PRN 3 Days #12 tab 07/03/22 5-325] Lactulose [Cephulac] 20 gm PO DAILY PRN 30 Days #1000 ml 07/03/22 Sennosides [Senokot] 8.6 mg PO DAILY #30 tab 07/03/22 Allergies Allergy/AdvReac Type Severity Reaction Status Date / Time Sulfa (Sulfonamide Allergy Anaphylaxis Verified 07/06/22 14:20 Antibiotics) Review of Systems ROS Statement: Those systems with pertinent positive or pertinent negative responses have been documented in the HPI. Review of Systems: CONST: Denies fever EYES: Denies blurry vision ENT: Denies nasal congestion C/V: Denies Chest pain RESP: Denies shortness of breath GI: Endorses abdominal pain : Denies dysuria SKIN: Denies rash. MSK: Denies joint pain. NEURO: Denies headache ROS Other: All systems not noted in ROS Statement are negative. Past Medical History Past Medical History: Cancer, GERD/Reflux, Prostate Disorder Additional Past Medical History / Comment(s): colon cancer-LAST CHEMO ON 03/16/22. GI BLEED MARCH 2020 possible lung Mets History of Any Multi-Drug Resistant Organisms: C-DIFF Date of last positivie culture/infection: 03/21/2022 MDRO Source:: stool Past Surgical History: Bowel Resection, Cardiac Valve Replacement Additional Past Surgical History / Comment(s): liver/rectal colon cancer,. COLONOSCOPY. colostomy reversal January 2022, removed section of liver in 2018 Past Anesthesia/Blood Transfusion Reactions: No Reported Reaction Past Psychological History: No Psychological Hx Reported Smoking Status: Never smoker Past Alcohol Use History: None Reported Past Drug Use History: None Reported - Past Family History Father Family Medical History: Cancer Mother Family Medical History: Osteoarthritis (OA) General Exam - General Exam Comments Initial Comments: General: Appears in no acute distress. HEAD: Normal with no signs of head trauma. EYES: PERRLA, EOMI, conjunctiva normal, no discharge. ENT: Hearing grossly intact, normal oropharynx. RESPIRATORY: Clear breath sounds bilaterally. No wheezes, rales, or rhonchi. C/V: Regular rate and rhythm. S1 and S2 auscultated, no edema, peripheral pulses 2+ and intact throughout ABD: Abdomen is soft, nondistended. Palpable hernias midline lower. Soft hernia, however patient describes it is mildly tender to palpation. No guarding. No peritoneal signs. No skin changes over the site. No rebound tenderness. EXT: Normal range of motion, no obvious deformity SKIN: No rashes or lesions observed on exposed skin. NEURO: Alert and oriented 4. Limitations: no limitations Course Vital Signs 07/06/22 07/06/22 11:41 13:35 Temperature 97.6 F Pulse Rate 104 H 104 H Respiratory 18 18 Rate Blood Pressure 134/90 131/90 O2 Sat by Pulse 97 98 Oximetry Medical Decision Making - Medical Decision Making Based on the patient's presentation and physical exam, I do believe this is acute on chronic abdominal pain with intractable nausea and vomiting which is also chronic secondary to his metastatic cancer. However we cannot rule out consultations with his hernia. We will obtain abdominal laboratory studies. CT imaging from last week when the patient presented with identical symptoms revealed hepatic metastatic disease with progression, a ventral hernia in the epigastric region. Patient also has lower abdominal wall hernia. Both of these were increased in size. No signs of strangulation or incarceration. Imaging will be held at this time. He'll be symptomatically treated. Vital signs within normal limits. Laboratory studies are remarkable for a hemoglobin of 11.4 which is chronic. Remainder the labs are unremarkable. While the patient was waiting for laboratory study results, he did have episodes of emesis. He had 2 episodes of dark, black emesis. Concern for bleeding. I discussed with the patient, he states that this is the type of emesis he has been having for quite some time. States it is not always dark, and intermittently has been dark over the last few days. He believes it was like this when he was discharged as well. Occult testing of the gastric contents were positive. I discussed with him that I'm concerned that he may have a bleeding ulcer at this time. He has no history of alcoholic liver disease. I would like to admit him to the hospital, however we need permission from surgery for him to remain here as we do not have gastroenterology on-call. They were in agreement with this plan. Patient was administered Protonix, as well as additional pain medications and antiemetics. He remains hemodynamically stable at this time. I spoke with the patient's surgeon, Dr. Garcia who evaluated him last time he was here. He is out of town, and recommended that I contact Dr. Tucker as he states the [facility] on-call surgeon that is covering him does not do GI scopes. I spoke with Dr. Tucker, and we discussed the patient. He was in agreement to consult. Is okay with the patient remaining at this hospital. Consult was placed to Dr. Simmons. I spoke with Dr. Ram, the admitting physician who accepted the patient was in agreement this plan. Patient was admitted in stable condition. - Lab Data Result diagrams: 07/06/22 12:50 07/06/22 12:50 Lab Results 07/06/22 07/06/22 07/06/22 Range/Units 12:50 12:50 12:50 WBC 7.1 (3.8-10.6) k/uL RBC 4.54 (4.30-5.90) m/uL Hgb 11.4 L (13.0-17.5) gm/dL Hct 36.5 L (39.0-53.0) % MCV 80.3 (80.0-100.0) fL MCH 25.0 (25.0-35.0) pg MCHC 31.2 (31.0-37.0) g/dL RDW 19.3 H (11.5-15.5) % Plt Count 547 H (150-450) k/uL MPV 7.9 Neutrophils % 86 % Lymphocytes % 9 % Monocytes % 3 % Eosinophils % 0 % Basophils % 0 % Neutrophils # 6.1 (1.3-7.7) k/uL Lymphocytes # 0.7 L (1.0-4.8) k/uL Monocytes # 0.2 (0-1.0) k/uL Eosinophils # 0.0 (0-0.7) k/uL Basophils # 0.0 (0-0.2) k/uL Hypochromasia Marked Anisocytosis Slight Microcytosis Slight Sodium 137 (137-145) mmol/L Potassium 3.7 (3.5-5.1) mmol/L Chloride 101 (98-107) mmol/L Carbon Dioxide 27 (22-30) mmol/L Anion Gap 9 mmol/L BUN 22 H (9-20) mg/dL Creatinine 0.85 (0.66-1.25) mg/dL Est GFR (CKD-EPI)AfAm >90 (>60 ml/min/1.73 sqM) Est GFR (CKD-EPI)NonAf >90 (>60 ml/min/1.73 sqM) Glucose 101 H (74-99) mg/dL Plasma Lactic Acid Han 0.9 (0.7-2.0) mmol/L Calcium 8.1 L (8.4-10.2) mg/dL Total Bilirubin 0.4 (0.2-1.3) mg/dL AST 36 (17-59) U/L ALT 12 (4-49) U/L Alkaline Phosphatase 106 (38-126) U/L Total Protein 5.2 L (6.3-8.2) g/dL Albumin 2.7 L (3.5-5.0) g/dL Amylase 39 (30-110) U/L Lipase 33 (23-300) U/L Gastric Occult Blood (Negative) 07/06/22 Range/Units 13:56 WBC (3.8-10.6) k/uL RBC (4.30-5.90) m/uL Hgb (13.0-17.5) gm/dL Hct (39.0-53.0) % MCV (80.0-100.0) fL MCH (25.0-35.0) pg MCHC (31.0-37.0) g/dL RDW (11.5-15.5) % Plt Count (150-450) k/uL MPV Neutrophils % % Lymphocytes % % Monocytes % % Eosinophils % % Basophils % % Neutrophils # (1.3-7.7) k/uL Lymphocytes # (1.0-4.8) k/uL Monocytes # (0-1.0) k/uL Eosinophils # (0-0.7) k/uL Basophils # (0-0.2) k/uL Hypochromasia Anisocytosis Microcytosis Sodium (137-145) mmol/L Potassium (3.5-5.1) mmol/L Chloride (98-107) mmol/L Carbon Dioxide (22-30) mmol/L Anion Gap mmol/L BUN (9-20) mg/dL Creatinine (0.66-1.25) mg/dL Est GFR (CKD-EPI)AfAm (>60 ml/min/1.73 sqM) Est GFR (CKD-EPI)NonAf (>60 ml/min/1.73 sqM) Glucose (74-99) mg/dL Plasma Lactic Acid Han (0.7-2.0) mmol/L Calcium (8.4-10.2) mg/dL Total Bilirubin (0.2-1.3) mg/dL AST (17-59) U/L ALT (4-49) U/L Alkaline Phosphatase (38-126) U/L Total Protein (6.3-8.2) g/dL Albumin (3.5-5.0) g/dL Amylase (30-110) U/L Lipase (23-300) U/L Gastric Occult Blood Positive (Negative) Disposition Clinical Impression: Hematemesis, Intractable nausea and vomiting, Intractable abdominal pain, History of cancer Disposition: ADMITTED IP TO THIS [facility] Condition: Stable Referrals: Amaury Pulido MD [Primary Care Provider] - 1-2 days Time of Disposition: 14:55
[2022-07-06] MEDS ORDERED: LORazepam 2 MG/ML INJ IV PRN (15:32)
[2022-07-06] MEDS ORDERED: NALOXONE 0.4 MG/ML 1 ML VIAL IV PRN (15:32)
[2022-07-06] MEDS ORDERED: ONDANSETRON 4 MG/2 ML VIAL IVP PRN (15:32)
--- NOTE | 2022-07-06 15:43 | P.HPIM ---
History of Present Illness H&P Date: 07/06/22 Chief Complaint: nausea and pain 61-year-old male with past medical history remarkable for metastatic colon cancer on palliative chemotherapy, chronic abdominal hernias, prior GI bleed secondary to stomach ulcers who presents emergency Department complaining of intractable abdominal pain since discharge 3 days ago as well as nausea and vomiting. Pain located on the left side of the abdomen. It is constant. She was given [place] for pain upon discharge last time but it has not been working well for him. Vomits consist of liquids.. Denies any change in bowel movements, as they have chronically been soft and brown. Having 3-4 BMs per day, again chronic. Denies any dark stools. Denies any chest pain, shortness of breath. Denies any fevers or chills. Denies any urinary complaints. In the emergency department he was noted to be extremely uncomfortable. He was constantly holding the bedpan trying to throw up. His labs were okay. Vital signs were all okay except for heart rate of 104. Review of Systems Complete review of system performed, pertinent positives per HPI, otherwise negative Past Medical History Past Medical History: Cancer, GERD/Reflux, Prostate Disorder Additional Past Medical History / Comment(s): colon cancer-LAST CHEMO ON 03/16/22. GI BLEED MARCH 2020 possible lung Mets History of Any Multi-Drug Resistant Organisms: C-DIFF Date of last positivie culture/infection: 03/21/2022 MDRO Source:: stool Past Surgical History: Bowel Resection, Cardiac Valve Replacement Additional Past Surgical History / Comment(s): liver/rectal colon cancer,. COLONOSCOPY. colostomy reversal January 2022, removed section of liver in 2018 Past Anesthesia/Blood Transfusion Reactions: No Reported Reaction Past Psychological History: No Psychological Hx Reported Smoking Status: Never smoker Past Alcohol Use History: None Reported Past Drug Use History: None Reported - Past Family History Father Family Medical History: Cancer Mother Family Medical History: Osteoarthritis (OA) Medications and Allergies Home Medications Medication Instructions Recorded Confirmed Type HYDROcodone/APAP 5-325MG [[place] 1 tab PO Q6HR PRN 3 Days #12 tab 07/03/22 07/06/22 Rx 5-325] Lactulose [Cephulac] 20 gm PO DAILY PRN 30 Days #1000 ml 07/03/22 07/06/22 Rx Sennosides [Senokot] 8.6 mg PO DAILY #30 tab 07/03/22 07/06/22 Rx Lactobacillus Acidoph & Bulgar 1 packet PO TID 07/06/22 07/06/22 History [Lactinex] Multivitamins, Thera [Multivitamin 1 tab PO DAILY 07/06/22 07/06/22 History (formulary)] Allergies Allergy/AdvReac Type Severity Reaction Status Date / Time Sulfa (Sulfonamide Allergy Anaphylaxis Verified 07/06/22 14:20 Antibiotics) Physical Exam Vitals: Vital Signs Temp Pulse Resp BP Pulse Ox 07/06/22 13:35 104 H 18 131/90 98 07/06/22 11:41 97.6 F 104 H 18 134/90 97 Intake and Output 07/06/22 07/06/22 07/06/22 06:59 14:59 22:59 Other: Weight 65.771 kg Constitutional: In acute distress secondary to pain, conversant, pleasant Eyes:Anicteric sclerae, moist conjunctiva, no lid-lag, PERRLA, ENMT: Oropharynx clear, no erythema, exudates Neck: Supple, FROM, no masses, or JVD, No carotid bruits, No thyromegaly Lungs: Clear to auscultation, Clear to percussion, Normal respiratory effort, no accessory muscle use Cardiovascular: Heart regular in rate and rhythm, No murmurs, gallops, or rubs, No peripheral edema Abdominal: Soft, severely tender on the left side, no guarding, rebound or rigidity, Normoactive bowel sounds, No hepatomegaly, No splenomegaly, No palpable mass Skin: Normal temperature, tone, texture, turgor, no induration, No subcutaneous nodules, No rash, lesions, No ulcers Extremities: No digital cyanosis, No clubbing, Pedal pulses intact and symmetrical, Radial pulses intact and symmetrical, No calf tenderness Psychiatric: Alert and oriented to person, place and time, appropriate affect, intact judgement Neuro: Muscles Strength 5/5 in all 4 extremities, Sensation to light touch grossly present throughout, Cranial nerves II-XII grossly intact, no focal sensory deficits Results CBC & Chem 7: 07/06/22 12:50 07/06/22 12:50 Labs: Abnormal Lab Results - Last 24 Hours (Table) 08/26/22 08/26/22 Range/Units 12:50 12:50 Hgb 11.4 L (13.0-17.5) gm/dL Hct 36.5 L (39.0-53.0) % RDW 19.3 H (11.5-15.5) % Plt Count 547 H (150-450) k/uL Lymphocytes # 0.7 L (1.0-4.8) k/uL BUN 22 H (9-20) mg/dL Glucose 101 H (74-99) mg/dL Calcium 8.1 L (8.4-10.2) mg/dL Total Protein 5.2 L (6.3-8.2) g/dL Albumin 2.7 L (3.5-5.0) g/dL Assessment and Plan Plan: Acute on chronic abdominal pain -Surgery and oncology evaluation -Dilaudid IV -Clear liquid diet Intractable nausea and vomiting -Zofran as needed, benzodiazepines when necessary Colon cancer with metastatic disease -Oncology consult Anemia and thrombocytosis, both which are improved compared to his baseline -Continue outpatient follow-up DVT prophylaxis: Lovenox
[2022-07-06] MEDS: HYDROmorphone 1 MG/ML 1 ML SYRINGE IVP PRN ×2 (15:54→21:49)
[2022-07-06] MEDS: SODIUM CHLORIDE 0.9% 1,000 ML IV SCH (15:55)
[2022-07-06 16:38] LABS: INR 1.1 (<1.2)
[2022-07-06 16:39] LABS: Partial Thromboplastin Time 27.4 sec (22.0-30.0); Prothrombin Time 12.2 sec (9.0-12.0)
[2022-07-07] MEDS: SODIUM CHLORIDE 0.9% 1,000 ML IV SCH ×2 (05:59→15:46)
[2022-07-07] MEDS: HYDROmorphone 1 MG/ML 1 ML SYRINGE IVP PRN ×2 (07:19→15:46)
[2022-07-07] MEDS: PANTOPRAZOLE 40 MG/10 ML VIAL IVP SCH (09:15)
[2022-07-07 09:16] LABS: African American GFR (CKD) 93.1 (60.0-200.0); Albumin 2.7 g/dL (3.8-4.9); Albumin/Globulin Ratio 1.29 (1.60-3.17); Anion Gap 9.3 mmol/L (10.00-18.00); BUN/Creat Ratio 20.3 Ratio (12.00-20.00); Blood Urea Nitrogen 20.3 mg/dL (9.0-27.0); Calcium 8.6 mg/dL (8.7-10.3); Carbon Dioxide 25.7 mmol/L (20.0-27.5); Globulin 2.1 g/dL (1.6-3.3); Magnesium 1.9 mg/dL (1.5-2.4); Non-African American GFR(CKD) 80.3 (60.0-200.0); Potassium 4.8 mmol/L (3.5-5.5); Total Bilirubin 0.3 mg/dL (0.30-1.20); Total Protein 4.8 g/dL (6.2-8.2)
[2022-07-07 09:21] LABS: HGB 9.2 g/dL (13.0-17.0); MCH 23.7 pg (27.0-32.0); MCHC 29.7 g/dL (32.0-37.0); MCV 79.7 fL (80.0-97.0); Mean Platelet Volume 10.6 fL (9.5-12.2); NRBC Per 100 WBC 0.3 /100 WBCS (0.0-0.0); Platelet Count 563 X 10*3/uL (140-440); RBC 3.89 X 10*6/uL (4.40-5.60); RDW 22.5 % (11.5-14.5); WBC 7.41 X 10*3/uL (4.50-10.00)
[2022-07-07 09:43] LABS: Appearance,Urine Clear (Clear); Bilirubin,Urine Negative (Negative); Blood,Urine Negative (Negative); Color,Urine Yellow; Glucose,Urine (UA) Negative (Negative); Ketones,Urine 2+ (Negative); Leukocyte Esterase,Urine Negative (Negative); Mucus,Urine Occasional /hpf; Nitrite,Urine Negative (Negative); PH, Urine 5.5 (5.0-8.0); Protein,Urine 1+ (Negative); RBC,Urine <1 /hpf (0-5); Specific Gravity,Urine 1.022 (1.001-1.035); Urobilinogen,Urine <2.0 mg/dL (<2.0); WBC,Urine 1 /hpf (0-5)
[2022-07-07 10:31] LABS: Anisocytosis (M) 2+; Basophils # (A) 0.03 X 10*3/uL (0.00-0.10); Basophils % (A) 0.4 %; Eosinophils # (A) 0.13 X 10*3/uL (0.04-0.35); Eosinophils % (A) 1.8 %; Immature Grans, Automated 1.1 %; Lymphocytes # (A) 0.64 X 10*3/uL (0.90-5.00); Lymphocytes % (A) 8.6 %; Monocytes # (A) 0.74 X 10*3/uL (0.20-1.00); Neutrophils # (A) 5.79 X 10*3/uL (1.80-7.70); Neutrophils % (A) 78.1 %
--- NOTE | 2022-07-07 11:34 | P.GSCN ---
History of Present Illness Consult date: 07/07/22 Reason for Consult: Abdominal pain, GI bleed History of present illness: 61-year-old male with a complicated past surgical history. Patient currently in 2018 was found to have metastatic colon cancer. He underwent colon resection and hepatic resection apparently at [facility]. He was discharged home and while he was in [place] developed a leak resulting in the need for reexploration and ostomy. Patient had subsequent ostomy reversal apparently in [place] as well. He has been undergoing chemotherapy after recent studies show recurrent cancer in the liver. He was just admitted a week or so ago. At the time the patient was having abdominal pain. It was thought she was having partial small bowel obstruction after eating corn and steak. Patient started having bowel function and his pain improved. He was discharged home. Came back to the hospital yesterday primarily with complaints of abdominal pain. While he was in the ER however the patient had episodes of vomiting that appeared coffee- ground and was guaiac positive. We were consulted for the GI bleed. Patient has not had vomiting this morning. He is hungry. He would like to eat. Hemoglobin did drop slightly from 11-8 with hydration. Patient with history of previous erosions at the site of a gastrojejunostomy. Reason for the gastric surgery is unclear. He is not aware of previous stomach surgery. Review of Systems The patient denies any acute changes in vision or hearing, no dysphagia or odynophagia, no chest pain or shortness of breath, no dysuria or hematuria, no headache, no runny nose, no rectal bleeding or melena, no unexplained weight loss Past Medical History Past Medical History: Cancer, GERD/Reflux, Prostate Disorder Additional Past Medical History / Comment(s): colon cancer-LAST CHEMO ON 03/16/22. GI BLEED MARCH 2020 possible lung Mets History of Any Multi-Drug Resistant Organisms: C-DIFF Year Discovered:: 03/21/2022 MDRO Source:: stool Past Surgical History: Bowel Resection, Cardiac Valve Replacement Additional Past Surgical History / Comment(s): liver/rectal colon cancer,. COLONOSCOPY. colostomy reversal January 2022, removed section of liver in 2018 Past Anesthesia/Blood Transfusion Reactions: No Reported Reaction Past Psychological History: No Psychological Hx Reported Smoking Status: Never smoker Past Alcohol Use History: None Reported Past Drug Use History: None Reported - Past Family History Father Family Medical History: Cancer Mother Family Medical History: Osteoarthritis (OA) Medications and Allergies Home Medications Medication Instructions Recorded Confirmed Type HYDROcodone/APAP 5-325MG [[place] 1 tab PO Q6HR PRN 3 Days #12 tab 07/03/22 07/06/22 Rx 5-325] Lactulose [Cephulac] 20 gm PO DAILY PRN 30 Days #1000 ml 07/03/22 07/06/22 Rx Sennosides [Senokot] 8.6 mg PO DAILY #30 tab 07/03/22 07/06/22 Rx Lactobacillus Acidoph & Bulgar 1 packet PO TID 07/06/22 07/06/22 History [Lactinex] Multivitamins, Thera [Multivitamin 1 tab PO DAILY 07/06/22 07/06/22 History (formulary)] Allergies Allergy/AdvReac Type Severity Reaction Status Date / Time Sulfa (Sulfonamide Allergy Anaphylaxis Verified 07/06/22 14:20 Antibiotics) Surgical - Exam Vital Signs Temp Pulse Resp BP Pulse Ox 97.6 F 104 H 18 134/90 97 07/06/22 11:41 07/06/22 11:41 07/06/22 11:41 07/06/22 11:41 07/06/22 11:41 Physical exam: General: Well-developed, somewhat malnourished HEENT: Normocephalic, sclerae nonicteric Abdomen: Mild tenderness left midabdomen, previous scars noted, reducible hernias noted Extremities: No edema Neuro: Alert and oriented Results - Labs 07/07/22 04:12 07/07/22 04:12 Abnormal Lab Results - Last 24 Hours (Table) 07/06/22 07/06/22 07/06/22 Range/Units 12:50 12:50 16:13 RBC (4.40-5.60) X 10*6/uL Hgb 11.4 L (13.0-17.5) gm/dL Hct 36.5 L (39.0-53.0) % MCV (80.0-97.0) fL MCH (27.0-32.0) pg MCHC (32.0-37.0) g/dL RDW 19.3 H (11.5-15.5) % Plt Count 547 H (150-450) k/uL Plt Count Comment Absolute Nucleated RBC (0.00-0.00) X 10*3/uL Immature Gran # (0.00-0.04) X 10*3/uL Lymphocytes # 0.7 L (1.0-4.8) k/uL NRBC/100 WBC Diff (0.0-0.0) /100 WBCS PT 12.2 H (9.0-12.0) sec Anion Gap (10.00-18.00) mmol/L BUN 22 H (9-20) mg/dL BUN/Creatinine Ratio (12.00-20.00) Ratio Glucose 101 H (74-99) mg/dL Calcium 8.1 L (8.4-10.2) mg/dL AST (14-35) U/L Total Protein 5.2 L (6.3-8.2) g/dL Albumin 2.7 L (3.5-5.0) g/dL Albumin/Globulin Ratio (1.60-3.17) g/dL Urine Protein (Negative) Urine Ketones (Negative) Urine Mucus (None) /hpf 07/07/22 07/07/22 07/07/22 Range/Units 04:12 04:12 08:30 RBC 3.89 L (4.40-5.60) X 10*6/uL Hgb 9.2 L (13.0-17.5) gm/dL Hct 31.0 L (39.0-53.0) % MCV 79.7 L (80.0-97.0) fL MCH 23.7 L (27.0-32.0) pg MCHC 29.7 L (32.0-37.0) g/dL RDW 22.5 H (11.5-15.5) % Plt Count 563 H (150-450) k/uL Plt Count Comment INCREASED A Absolute Nucleated RBC 0.02 H (0.00-0.00) X 10*3/uL Immature Gran # 0.08 H (0.00-0.04) X 10*3/uL Lymphocytes # 0.64 L (1.0-4.8) k/uL NRBC/100 WBC Diff 0.3 H (0.0-0.0) /100 WBCS PT (9.0-12.0) sec Anion Gap 9.30 L (10.00-18.00) mmol/L BUN (9-20) mg/dL BUN/Creatinine Ratio 20.30 H (12.00-20.00) Ratio Glucose (74-99) mg/dL Calcium 8.6 L (8.4-10.2) mg/dL AST 41 H (14-35) U/L Total Protein 4.8 L (6.3-8.2) g/dL Albumin 2.7 L (3.5-5.0) g/dL Albumin/Globulin Ratio 1.29 L (1.60-3.17) g/dL Urine Protein 1+ H (Negative) Urine Ketones 2+ H (Negative) Urine Mucus Occasional H (None) /hpf Diabetes panel 07/06/22 07/07/22 Range/Units 12:50 04:12 Sodium 137 142 (137-145) mmol/L Potassium 3.7 4.8 (3.5-5.1) mmol/L Chloride 101 107 (98-107) mmol/L Carbon Dioxide 27 25.7 (22-30) mmol/L BUN 22 H 20.3 (9-20) mg/dL Creatinine 0.85 1.0 (0.66-1.25) mg/dL Glucose 101 H 93 (74-99) mg/dL Calcium 8.1 L 8.6 L (8.4-10.2) mg/dL AST 36 41 H (17-59) U/L ALT 12 13 (4-49) U/L Alkaline Phosphatase 106 92 (38-126) U/L Total Protein 5.2 L 4.8 L (6.3-8.2) g/dL Albumin 2.7 L 2.7 L (3.5-5.0) g/dL Calcium panel 07/06/22 07/07/22 Range/Units 12:50 04:12 Calcium 8.1 L 8.6 L (8.4-10.2) mg/dL Phosphorus 3.0 (2.4-5.1) mg/dL Albumin 2.7 L 2.7 L (3.5-5.0) g/dL Pituitary panel 07/06/22 07/07/22 Range/Units 12:50 04:12 Sodium 137 142 (137-145) mmol/L Potassium 3.7 4.8 (3.5-5.1) mmol/L Chloride 101 107 (98-107) mmol/L Carbon Dioxide 27 25.7 (22-30) mmol/L BUN 22 H 20.3 (9-20) mg/dL Creatinine 0.85 1.0 (0.66-1.25) mg/dL Glucose 101 H 93 (74-99) mg/dL Calcium 8.1 L 8.6 L (8.4-10.2) mg/dL Adrenal panel 07/06/22 07/07/22 Range/Units 12:50 04:12 Sodium 137 142 (137-145) mmol/L Potassium 3.7 4.8 (3.5-5.1) mmol/L Chloride 101 107 (98-107) mmol/L Carbon Dioxide 27 25.7 (22-30) mmol/L BUN 22 H 20.3 (9-20) mg/dL Creatinine 0.85 1.0 (0.66-1.25) mg/dL Glucose 101 H 93 (74-99) mg/dL Calcium 8.1 L 8.6 L (8.4-10.2) mg/dL Total Bilirubin 0.4 0.30 (0.2-1.3) mg/dL AST 36 41 H (17-59) U/L ALT 12 13 (4-49) U/L Alkaline Phosphatase 106 92 (38-126) U/L Total Protein 5.2 L 4.8 L (6.3-8.2) g/dL Albumin 2.7 L 2.7 L (3.5-5.0) g/dL Assessment and Plan (1) Intractable abdominal pain Narrative/Plan: 61-year-old male with abdominal pain and recent coffee-ground emesis. Continue antiacid therapy. Resume liquid diet. Etiology for the patient's pain is unclear but could be on the basis of cancer progression. No obvious obstruction seen on recent studies. No immediate plans for endoscopy. We'll follow with you. Current Visit: Yes Status: Acute Code(s): R10.9 - UNSPECIFIED ABDOMINAL PAIN SNOMED Code(s): 94355557
--- NOTE | 2022-07-07 12:42 | P.PN ---
Subjective Progress Note Date: 07/07/22 Principal diagnosis: abdominal pain Patient states she has 6/10 pain in the left side of the abdomen. His nausea has improved. He started to eat clear liquid diet. Tolerated. No fevers or chills. Objective - Vital Signs Vital signs: Vital Signs Temp 97.4 F L 07/07/22 07:00 Pulse 100 07/07/22 07:00 Resp 16 07/07/22 07:00 BP 119/63 07/07/22 07:00 Pulse Ox 95 07/07/22 07:00 FiO2 Intake & Output 07/06/22 07/07/22 07/07/22 18:59 06:59 18:59 Output Total 3 Balance -3 Weight 65.771 kg 65.771 kg Output: Urine 3 Other: # Voids 1 1 - Exam Constitutional: In acute distress secondary to pain, conversant, pleasant Eyes:Anicteric sclerae, moist conjunctiva, no lid-lag, PERRLA, ENMT: Oropharynx clear, no erythema, exudates Neck: Supple, FROM, no masses, or JVD, No carotid bruits, No thyromegaly Lungs: Clear to auscultation, Clear to percussion, Normal respiratory effort, no accessory muscle use Cardiovascular: Heart regular in rate and rhythm, No murmurs, gallops, or rubs, No peripheral edema Abdominal: Soft, severely tender on the left side, no guarding, rebound or rigidity, Normoactive bowel sounds, No hepatomegaly, No splenomegaly, No palpable mass Skin: Normal temperature, tone, texture, turgor, no induration, No subcutaneous nodules, No rash, lesions, No ulcers Extremities: No digital cyanosis, No clubbing, Pedal pulses intact and symmetrical, Radial pulses intact and symmetrical, No calf tenderness Psychiatric: Alert and oriented to person, place and time, appropriate affect, intact judgement Neuro: Muscles Strength 5/5 in all 4 extremities, Sensation to light touch grossly present throughout, Cranial nerves II-XII grossly intact, no focal sensory deficits - Labs CBC & Chem 7: 07/07/22 04:12 07/07/22 04:12 Labs: Abnormal Lab Results - Last 24 Hours (Table) 07/06/22 07/06/22 07/06/22 Range/Units 12:50 12:50 16:13 RBC (4.40-5.60) X 10*6/uL Hgb 11.4 L (13.0-17.5) gm/dL Hct 36.5 L (39.0-53.0) % MCV (80.0-97.0) fL MCH (27.0-32.0) pg MCHC (32.0-37.0) g/dL RDW 19.3 H (11.5-15.5) % Plt Count 547 H (150-450) k/uL Plt Count Comment Absolute Nucleated RBC (0.00-0.00) X 10*3/uL Immature Gran # (0.00-0.04) X 10*3/uL Lymphocytes # 0.7 L (1.0-4.8) k/uL NRBC/100 WBC Diff (0.0-0.0) /100 WBCS PT 12.2 H (9.0-12.0) sec Anion Gap (10.00-18.00) mmol/L BUN 22 H (9-20) mg/dL BUN/Creatinine Ratio (12.00-20.00) Ratio Glucose 101 H (74-99) mg/dL Calcium 8.1 L (8.4-10.2) mg/dL AST (14-35) U/L Total Protein 5.2 L (6.3-8.2) g/dL Albumin 2.7 L (3.5-5.0) g/dL Albumin/Globulin Ratio (1.60-3.17) g/dL Urine Protein (Negative) Urine Ketones (Negative) Urine Mucus (None) /hpf 07/07/22 07/07/22 07/07/22 Range/Units 04:12 04:12 08:30 RBC 3.89 L (4.40-5.60) X 10*6/uL Hgb 9.2 L (13.0-17.5) gm/dL Hct 31.0 L (39.0-53.0) % MCV 79.7 L (80.0-97.0) fL MCH 23.7 L (27.0-32.0) pg MCHC 29.7 L (32.0-37.0) g/dL RDW 22.5 H (11.5-15.5) % Plt Count 563 H (150-450) k/uL Plt Count Comment INCREASED A Absolute Nucleated RBC 0.02 H (0.00-0.00) X 10*3/uL Immature Gran # 0.08 H (0.00-0.04) X 10*3/uL Lymphocytes # 0.64 L (1.0-4.8) k/uL NRBC/100 WBC Diff 0.3 H (0.0-0.0) /100 WBCS PT (9.0-12.0) sec Anion Gap 9.30 L (10.00-18.00) mmol/L BUN (9-20) mg/dL BUN/Creatinine Ratio 20.30 H (12.00-20.00) Ratio Glucose (74-99) mg/dL Calcium 8.6 L (8.4-10.2) mg/dL AST 41 H (14-35) U/L Total Protein 4.8 L (6.3-8.2) g/dL Albumin 2.7 L (3.5-5.0) g/dL Albumin/Globulin Ratio 1.29 L (1.60-3.17) g/dL Urine Protein 1+ H (Negative) Urine Ketones 2+ H (Negative) Urine Mucus Occasional H (None) /hpf Assessment and Plan Plan: Acute on chronic abdominal pain likely due to progressive cancer -Surgery evaluated patient, no need for surgical intervention currently on obvious bowel obstruction -Dilaudid IV -Clear liquid diet Intractable nausea and vomiting -Zofran as needed, benzodiazepines when necessary Colon cancer with metastatic disease -Oncology consulted Anemia and thrombocytosis, both which are improved compared to his baseline -Continue outpatient follow-up DVT prophylaxis: Lovenox
--- NOTE | 2022-07-07 17:37 | P.CONS ---
History of Present Illness - Reason for Consult Consult date: 07/07/22 Colon cancer Requesting physician: Sylvain Ram - Chief Complaint Hematemasis, nausea, vomiting - History of Present Illness Mr. Garrison is a very pleasant 61 yo male with a history of metastatic colon cancer, met's to liver, on palliative chemotherapy with irinotecan/bevacizumab (last on 06/29/2022) who presented to the ED with acute abdominal pain, nausea and vomiting as well as hematemesis. He was recently hospitalized for acute onset abdominal pain a week ago, soon after his last chemotherapy infusion. Workup was obtained including CT of the abdomen pelvis which revealed possibly increased liver lesions as well as an epigastric ventral hernia that was incr eased in size and lower anterior abdominal wall ventral hernia containing large and small bowel that had increased in size. He was volume by surgery and symptoms were felt to be due to increased stool burden. Bowel regimen was increased and he was discharged after having multiple bowel movements and tolerating his diet without significant pain. Unfortunately comes back with nausea and vomiting now. Also with hematemesis. FOBT positive. WBC 7.1, hemoglobin 11.4 from 1011 baseline, platelets 547, at baseline. Repeat this morning with stable WBC and platelets however hemoglobin down to 9.2. GI consulted. Review of Systems All systems: negative Past Medical History Past Medical History: Cancer, GERD/Reflux, Prostate Disorder Additional Past Medical History / Comment(s): colon cancer-LAST CHEMO ON 03/16/22. GI BLEED MARCH 2020 possible lung Mets History of Any Multi-Drug Resistant Organisms: C-DIFF Year Discovered:: 03/21/2022 MDRO Source:: stool Past Surgical History: Bowel Resection, Cardiac Valve Replacement Additional Past Surgical History / Comment(s): liver/rectal colon cancer,. COLONOSCOPY. colostomy reversal January 2022, removed section of liver in 2019 Past Anesthesia/Blood Transfusion Reactions: No Reported Reaction Past Psychological History: No Psychological Hx Reported Smoking Status: Never smoker Past Alcohol Use History: None Reported Past Drug Use History: None Reported - Past Family History Father Family Medical History: Cancer Mother Family Medical History: Osteoarthritis (OA) Medications and Allergies Home Medications Medication Instructions Recorded Confirmed Type HYDROcodone/APAP 5-325MG [[place] 1 tab PO Q6HR PRN 3 Days #12 tab 07/03/22 07/06/22 Rx 5-325] Lactulose [Cephulac] 20 gm PO DAILY PRN 30 Days #1000 ml 07/03/22 07/06/22 Rx Sennosides [Senokot] 8.6 mg PO DAILY #30 tab 07/03/22 07/06/22 Rx Lactobacillus Acidoph & Bulgar 1 packet PO TID 07/06/22 07/06/22 History [Lactinex] Multivitamins, Thera [Multivitamin 1 tab PO DAILY 07/06/22 07/06/22 History (formulary)] Allergies Allergy/AdvReac Type Severity Reaction Status Date / Time Sulfa (Sulfonamide Allergy Anaphylaxis Verified 07/06/22 14:20 Antibiotics) Physical Exam Vitals: Vital Signs Temp Pulse Pulse Resp BP BP Pulse Ox 07/07/22 13:26 98.3 F 102 H 14 120/77 95 07/07/22 07:00 97.4 F L 100 16 119/63 95 07/07/22 01:34 96 18 07/07/22 01:10 98.9 F 67 15 134/89 98 07/06/22 20:32 98.5 F 96 18 93/61 91 L 07/06/22 19:55 96 18 07/06/22 16:40 99.3 F 107 H 22 126/78 97 07/06/22 16:10 97.6 F 108 H 16 108/83 96 Intake and Output 07/06/22 07/07/22 07/07/22 22:59 06:59 14:59 Intake Total 118 Output Total 3 Balance -3 118 Intake: Oral 118 Output: Urine 3 Other: # Voids 1 1 Weight 65.771 kg Gen: NAD HEENT: Conjunctival pallor. No scleral icterus. Mucosa moist. Neck: Supple Lungs: No respiratory distress Heart: Regular rate Abd: Soft, nontender MSK: appropriate strength Neuro: Alert and oriented x3 Skin: No jaundice Psych: Appropriate affect Results CBC & Chem 7: 07/07/22 04:12 07/07/22 04:12 Labs: Abnormal Lab Results - Last 24 Hours (Table) 07/06/22 07/07/22 07/07/22 Range/Units 16:13 04:12 04:12 RBC 3.89 L (4.40-5.60) X 10*6/uL Hgb 9.2 L (13.0-17.0) g/dL Hct 31.0 L (39.6-50.0) % MCV 79.7 L (80.0-97.0) fL MCH 23.7 L (27.0-32.0) pg MCHC 29.7 L (32.0-37.0) g/dL RDW 22.5 H (11.5-14.5) % Plt Count 563 H (140-440) X 10*3/uL Plt Count Comment INCREASED A Absolute Nucleated RBC 0.02 H (0.00-0.00) X 10*3/uL Immature Gran # 0.08 H (0.00-0.04) X 10*3/uL Lymphocytes # 0.64 L (0.90-5.00) X 10*3/uL NRBC/100 WBC Diff 0.3 H (0.0-0.0) /100 WBCS PT 12.2 H (9.0-12.0) sec Anion Gap 9.30 L (10.00-18.00) mmol/L BUN/Creatinine Ratio 20.30 H (12.00-20.00) Ratio Calcium 8.6 L (8.7-10.3) mg/dL AST 41 H (14-35) U/L Total Protein 4.8 L (6.2-8.2) g/dL Albumin 2.7 L (3.8-4.9) g/dL Albumin/Globulin Ratio 1.29 L (1.60-3.17) g/dL Urine Protein (Negative) Urine Ketones (Negative) Urine Mucus (None) /hpf 07/07/22 Range/Units 08:30 RBC (4.40-5.60) X 10*6/uL Hgb (13.0-17.0) g/dL Hct (39.6-50.0) % MCV (80.0-97.0) fL MCH (27.0-32.0) pg MCHC (32.0-37.0) g/dL RDW (11.5-14.5) % Plt Count (140-440) X 10*3/uL Plt Count Comment Absolute Nucleated RBC (0.00-0.00) X 10*3/uL Immature Gran # (0.00-0.04) X 10*3/uL Lymphocytes # (0.90-5.00) X 10*3/uL NRBC/100 WBC Diff (0.0-0.0) /100 WBCS PT (9.0-12.0) sec Anion Gap (10.00-18.00) mmol/L BUN/Creatinine Ratio (12.00-20.00) Ratio Calcium (8.7-10.3) mg/dL AST (14-35) U/L Total Protein (6.2-8.2) g/dL Albumin (3.8-4.9) g/dL Albumin/Globulin Ratio (1.60-3.17) g/dL Urine Protein 1+ H (Negative) Urine Ketones 2+ H (Negative) Urine Mucus Occasional H (None) /hpf Assessment and Plan Assessment: 1. Metastatic colon cancer 2. Hematemesis 3. Intractable nausea and vomiting 4. Abdominal pain Plan: Mr. Garrison is a very pleasant 61-year-old gentleman with a history of metastatic colon cancer on irinotecan/bevacizumab, last given on 06/29/22 who is here for intractable nausea, vomiting, and abdominal pain. He has tenderness in the left mid abdomen without rebound or rigidity. Vomiting is improved. Surgery on board. Doubt that his symptoms are related to his underlying colon cancer. His liver metastases slightly increased in size but that would contribute to right upper quadrant abdominal pain and not left lateral and mid abdominal discomfort. For now continue with symptomatic control of his nausea. He was having hiccups, will add Compazine. Defer to surgery about EGD as he did have hematemesis and unclear etiology of his vomiting. Hold chemotherapy while inpatient. Discussed with patient is agreeable to the plan. All of his questions were answered. Discussed with family at bedside.
[2022-07-07] MEDS: PROCHLORPERAZINE INJ 10 MG/2 ML VIAL IVP PRN (19:35)
[2022-07-08] MEDS: SODIUM CHLORIDE 0.9% 1,000 ML IV SCH ×3 (00:35→20:23)
[2022-07-08] MEDS: HYDROmorphone 1 MG/ML 1 ML SYRINGE IVP PRN ×4 (02:03→23:09)
[2022-07-08] MEDS: PROCHLORPERAZINE INJ 10 MG/2 ML VIAL IVP PRN ×4 (02:20→23:31)
[2022-07-08] MEDS: PANTOPRAZOLE 40 MG/10 ML VIAL IVP SCH (08:02)
[2022-07-08 09:34] LABS: HCT 26.6 % (39.6-50.0); HGB 8.1 g/dL (13.0-17.0); MCH 24.3 pg (27.0-32.0); MCHC 30.5 g/dL (32.0-37.0); MCV 79.9 fL (80.0-97.0); Mean Platelet Volume 10.9 fL (9.5-12.2); NRBC Per 100 WBC 0 /100 WBCS (0.0-0.0); Platelet Count 588 X 10*3/uL (140-440); RBC 3.33 X 10*6/uL (4.40-5.60); RDW 22.1 % (11.5-14.5)
[2022-07-08 09:47] LABS: African American GFR (CKD) 99.5 (60.0-200.0); Anion Gap 7.4 mmol/L (10.00-18.00); BUN/Creat Ratio 13.74 Ratio (12.00-20.00); Carbon Dioxide 25.6 mmol/L (20.0-27.5); Non-African American GFR(CKD) 85.9 (60.0-200.0)
--- NOTE | 2022-07-08 10:00 | P.PN ---
Subjective Progress Note Date: 07/08/22 Principal diagnosis: Abdominal pain Patient says he is doing better today. He says his pain is improved. He is tolerating clear liquids. No nausea or vomiting. He says he had a very small bowel movement and has been passing flatus. No rectal bleeding or melena. Hemoglobin 8. Objective - Vital Signs Vital signs: Vital Signs Temp 98.5 F 07/08/22 07:00 Pulse 85 07/08/22 07:00 Resp 14 07/08/22 07:00 BP 115/75 07/08/22 07:00 Pulse Ox 96 07/08/22 07:00 FiO2 Intake & Output 07/07/22 07/08/22 07/08/22 18:59 06:59 18:59 Intake Total 118 960 118 Balance 118 960 118 Intake: IV 960 Sodium Chloride 0.9% 1, 960 000 ml @ 80 mls/hr IV . [id number] CHENG Rx#:[id number] Oral 118 118 Other: # Voids 1 2 # Bowel Movements 1 - Exam Abdomen: Soft, nondistended, mild left-sided tenderness, no rebound or guarding - Labs CBC & Chem 7: 07/08/22 03:38 07/08/22 03:38 Labs: Abnormal Lab Results - Last 24 Hours (Table) 07/07/22 07/07/22 07/08/22 Range/Units 04:12 08:30 03:38 RBC 3.33 L (4.40-5.60) X 10*6/uL Hgb 8.1 L (13.0-17.0) g/dL Hct 26.6 L (39.6-50.0) % MCV 79.9 L (80.0-97.0) fL MCH 24.3 L (27.0-32.0) pg MCHC 30.5 L (32.0-37.0) g/dL RDW 22.1 H (11.5-14.5) % Plt Count 588 H (140-440) X 10*3/uL Plt Count Comment INCREASED A Immature Gran # 0.08 H (0.00-0.04) X 10*3/uL Lymphocytes # 0.64 L (0.90-5.00) X 10*3/uL Anion Gap (10.00-18.00) mmol/L Glucose (70-110) mg/dL Calcium (8.7-10.3) mg/dL Urine Protein 1+ H (Negative) Urine Ketones 2+ H (Negative) Urine Mucus Occasional H (None) /hpf 07/08/22 Range/Units 03:38 RBC (4.40-5.60) X 10*6/uL Hgb (13.0-17.0) g/dL Hct (39.6-50.0) % MCV (80.0-97.0) fL MCH (27.0-32.0) pg MCHC (32.0-37.0) g/dL RDW (11.5-14.5) % Plt Count (140-440) X 10*3/uL Plt Count Comment Immature Gran # (0.00-0.04) X 10*3/uL Lymphocytes # (0.90-5.00) X 10*3/uL Anion Gap 7.40 L (10.00-18.00) mmol/L Glucose 120 H (70-110) mg/dL Calcium 8.0 L (8.7-10.3) mg/dL Urine Protein (Negative) Urine Ketones (Negative) Urine Mucus (None) /hpf Assessment and Plan (1) Intractable abdominal pain Narrative/Plan: Patient says his pain is improved. He is asking for more to eat. He is tolerating his clear liquids. Signs of active GI bleed currently. Will increase diet to full liquids. Will follow. Current Visit: Yes Status: Acute Code(s): R10.9 - UNSPECIFIED ABDOMINAL PAIN SNOMED Code(s): 12479531
[2022-07-08] MEDS: MAGNESIUM HYDROXIDE 2,400 MG/10 ML CUP PO SCH (10:29)
--- NOTE | 2022-07-08 13:40 | P.PN ---
Subjective Progress Note Date: 07/08/22 Principal diagnosis: abdominal pain Patient has improvement of his nausea and vomiting. He is tolerating liquid diet currently. However his left-sided abdominal pain is not much different, still requiring IV pain medication. Objective - Vital Signs Vital signs: Vital Signs Temp 98.9 F 07/08/22 13:16 Pulse 94 07/08/22 13:16 Resp 16 07/08/22 13:16 BP 130/82 07/08/22 13:16 Pulse Ox 98 07/08/22 13:16 FiO2 Intake & Output 07/07/22 07/08/22 07/08/22 18:59 06:59 18:59 Intake Total 118 960 478 Balance 118 960 478 Intake: IV 960 Sodium Chloride 0.9% 1, 960 000 ml @ 80 mls/hr IV . [id number] CHENG Rx#:[id number] Oral 118 478 Other: # Voids 1 2 2 # Bowel Movements 1 - Exam Constitutional: In acute distress secondary to pain, conversant, pleasant Eyes:Anicteric sclerae, moist conjunctiva, no lid-lag, PERRLA, ENMT: Oropharynx clear, no erythema, exudates Neck: Supple, FROM, no masses, or JVD, No carotid bruits, No thyromegaly Lungs: Clear to auscultation, Clear to percussion, Normal respiratory effort, no accessory muscle use Cardiovascular: Heart regular in rate and rhythm, No murmurs, gallops, or rubs, No peripheral edema Abdominal: Soft, severely tender on the left side, no guarding, rebound or rigidity, Normoactive bowel sounds, No hepatomegaly, No splenomegaly, No p alpable mass Skin: Normal temperature, tone, texture, turgor, no induration, No subcutaneous nodules, No rash, lesions, No ulcers Extremities: No digital cyanosis, No clubbing, Pedal pulses intact and symmetrical, Radial pulses intact and symmetrical, No calf tenderness Psychiatric: Alert and oriented to person, place and time, appropriate affect, intact judgement Neuro: Muscles Strength 5/5 in all 4 extremities, Sensation to light touch grossly present throughout, Cranial nerves II-XII grossly intact, no focal sensory deficits - Labs CBC & Chem 7: 07/08/22 03:38 07/08/22 03:38 Labs: Abnormal Lab Results - Last 24 Hours (Table) 07/08/22 07/08/22 Range/Units 03:38 03:38 RBC 3.33 L (4.40-5.60) X 10*6/uL Hgb 8.1 L (13.0-17.0) g/dL Hct 26.6 L (39.6-50.0) % MCV 79.9 L (80.0-97.0) fL MCH 24.3 L (27.0-32.0) pg MCHC 30.5 L (32.0-37.0) g/dL RDW 22.1 H (11.5-14.5) % Plt Count 588 H (140-440) X 10*3/uL Anion Gap 7.40 L (10.00-18.00) mmol/L Glucose 120 H (70-110) mg/dL Calcium 8.0 L (8.7-10.3) mg/dL Assessment and Plan Plan: Acute on chronic abdominal pain likely due to progressive cancer -Surgery evaluated patient, no need for surgical intervention currently on obvious bowel obstruction -Dilaudid IV -Diet advanced to full liquids by surgery today -Consider tertiary care center transfer for possible celiac block Intractable nausea and vomiting -Zofran as needed, benzodiazepines when necessary Colon cancer with metastatic disease -Oncology consulted Constipation -Add milk of magnesia, senna with docusate Anemia of chronic disease -Continue hgb follow-up DVT prophylaxis: Lovenox
[2022-07-08] MEDS: ENOXAPARIN 40 MG/0.4 ML SYRINGE SQ SCH (14:55)
[2022-07-08] MEDS: SENNOSIDES-DOCUSATE SODIUM 1 EACH TAB PO SCH ×2 (14:56→20:23)
[2022-07-09] MEDS: HYDROmorphone 1 MG/ML 1 ML SYRINGE IVP PRN ×2 (07:35→15:22)
[2022-07-09] MEDS: PROCHLORPERAZINE INJ 10 MG/2 ML VIAL IVP PRN ×2 (08:16→16:58)
[2022-07-09] MEDS: PANTOPRAZOLE 40 MG/10 ML VIAL IVP SCH (08:16)
[2022-07-09] MEDS: ENOXAPARIN 40 MG/0.4 ML SYRINGE SQ SCH (08:16)
[2022-07-09] MEDS: SENNOSIDES-DOCUSATE SODIUM 1 EACH TAB PO SCH (08:17)
[2022-07-09 09:58] LABS: Anisocytosis Slight; HCT 31.6 % (39.0-53.0); Hypochromasia Marked; MCH 24.8 pg (25.0-35.0); MCHC 30.6 g/dL (31.0-37.0); MCV 81.1 fL (80.0-100.0); Mean Platelet Volume 8.2; Microcytosis Slight; Platelet Count 702 k/uL (150-450); RDW 19.6 % (11.5-15.5); WBC 7.2 k/uL (3.8-10.6)
[2022-07-09 10:12] LABS: HGB 9.7 gm/dL (13.0-17.5)
--- NOTE | 2022-07-09 10:40 | P.PN ---
Subjective Progress Note Date: 07/09/22 CHIEF COMPLAINT: Abdominal pain HISTORY OF PRESENT ILLNESS: Patient sitting up in bed comfortably. He reports decrease in his abdominal pain. He reports that the pain on that left side is been intermittent. This morning he has no pain. His last bowel movement was 2 days ago and it was a small bowel movement. He is having flatus. He's had no further nausea or vomiting. No further coffee ground emesis. Hemoglobin has gone up from 8.1-9.7. He is currently on a full liquid diet. Patient reports that his posterior resume his chemotherapy on Saturday. PHYSICAL EXAM: VITAL SIGNS: Reviewed. GENERAL: Well-developed in no acute distress. HEENT: No sclera icterus. Extraocular movements grossly intact. Moist buccal mucosa. Head is atraumatic, normocephalic. ABDOMEN: Soft. Nondistended. Nontender. Previous abdominal scars NEUROLOGIC: Alert and oriented. Cranial nerves II through XII grossly intact. ASSESSMENT: 1. Intractable abdominal pain 2. Coffee ground emesis resolved PLAN: -Continue supportive care -Continue PPI -No plans for endoscopy Physician Contact Lens Inspector note has been reviewed by physician. Signing provider agrees with the documented findings, assessment, and plan of care. I have personally seen and examined the patient, reviewed the KEYMODULE ASSEMBLY SUPERVISOR /PAs history, exam and MDM and agree with the assessment and plan as written. Based on total visit time, I have performed more than 50% of the visit. As above: Patient doing much better. Has no pain at this time. He is new ating his full liquids. No rectal bleeding or melena. No further coffee ground emesis. Will advance diet. May discharge if tolerates. Outpatient follow-up with oncology. Objective - Vital Signs Vital signs: Vital Signs Temp 98.5 F 07/09/22 07:00 Pulse 70 07/09/22 07:00 Resp 16 07/09/22 07:00 BP 120/79 07/09/22 07:00 Pulse Ox 93 L 07/09/22 07:00 FiO2 Intake & Output 07/08/22 07/09/22 07/09/22 18:59 06:59 18:59 Intake Total 478 Balance 478 Intake: Oral 478 Other: Voiding Method Toilet # Voids 2 2 - Labs CBC & Chem 7: 07/09/22 09:20 07/08/22 03:38 Labs: Abnormal Lab Results - Last 24 Hours (Table) 07/09/22 Range/Units 09:20 RBC 3.90 L (4.30-5.90) m/uL Hgb 9.7 L D (13.0-17.5) gm/dL Hct 31.6 L (39.0-53.0) % MCH 24.8 L (25.0-35.0) pg MCHC 30.6 L (31.0-37.0) g/dL RDW 19.6 H (11.5-15.5) % Plt Count 702 H (150-450) k/uL
[2022-07-09] MEDS ORDERED: chlorproMAZINE 25 MG/ML 2 ML AMP IM STA (10:41)
--- NOTE | 2022-07-09 10:41 | P.PN ---
Subjective Progress Note Date: 07/09/22 Hospital course: Patient is a 61-year-old male with a past medical history of metastatic colon cancer (status post resection with colostomy and subsequent reversal, multiple rounds of chemotherapy, following with Dr. Andrade with next chemotherapy treatment scheduled Saturday07/13/22). He presented to the emergency department with a chief complaint of intractable abdominal pain, nausea, and vomiting. He was admitted under our services with consultation to general surgery. Physical examination: Patient seen and fully evaluated at bedside this morning. Patient is tolerating full liquid diet. He reports improvement in abdominal pain and reports back to baseline chronic abdominal pain to left lower quadrant. He denies any further episodes of vomiting and reports only bowel movement being a very small bowel movement 2 days ago. Pt does however report passing flatus and is tolerating a full liquid diet. General: non toxic, no distress, appears at stated age Derm: warm, dry Head: atraumatic, normocephalic, symmetric Eyes: EOMI, no lid lag, anicteric sclera Mouth: no lip lesion, mucus membranes moist Cardiovascular: S1S2 reg, no murmur, positive posterior tibial pulses bilaterally. Lungs: CTA bilateral, no rhonchi, no rales , no accessory muscle use Abdominal: soft, nontender to palpation, no guarding, no appreciable organomegaly Ext: no gross muscle atrophy, no edema, no contractures Neuro: CN II-XI grossly intact, no focal neuro deficits Psych: Alert, oriented, appropriate affect Assessment and plan of care: Intractable abdominal pain, nausea, and vomiting Constipation Coffee-ground emesis, resolved -Gen. surgery consulted, appreciate further recommendations. Reports no plans for surgical interventions at this time. -Continue gentle IV fluid hydration -Continue with antiemetic Zofran as needed for nausea/vomiting with benzodiazepines when necessary. -Continue with PPI, Protonix -Hemoglobin stable at 9.7 this morning -MiraLAX and docusate were added on secondary to reports of constipation. -Patient tolerating full liquid diet, advance as recommended by general surgery Metastatic colon cancer -Continue to follow up outpatient with Dr. Andrade CODE STATUS: Full Code DVT prophylaxis: Lovenox Discussed with: Patient and RN Anticipated discharge date: Possibly tomorrow morning Anticipated discharge place: Home A total of 31 minutes was spent on the care of this complex patient more than 50% of the time was spent in counseling and care coordination. Objective - Vital Signs Vital signs: Vital Signs Temp 98.5 F 07/09/22 07:00 Pulse 70 07/09/22 07:00 Resp 16 07/09/22 07:00 BP 120/79 07/09/22 07:00 Pulse Ox 93 L 07/09/22 07:00 FiO2 Intake & Output 07/08/22 07/09/22 07/09/22 18:59 06:59 18:59 Intake Total 478 Balance 478 Intake: Oral 478 Other: Voiding Method Toilet # Voids 2 2 - Labs CBC & Chem 7: 07/09/22 09:20 07/08/22 03:38 Labs: Abnormal Lab Results - Last 24 Hours (Table) 07/09/22 Range/Units 09:20 RBC 3.90 L (4.30-5.90) m/uL Hgb 9.7 L D (13.0-17.5) gm/dL Hct 31.6 L (39.0-53.0) % MCH 24.8 L (25.0-35.0) pg MCHC 30.6 L (31.0-37.0) g/dL RDW 19.6 H (11.5-15.5) % Plt Count 702 H (150-450) k/uL
[2022-07-09] MEDS: MAGNESIUM HYDROXIDE 2,400 MG/10 ML CUP PO SCH (13:16)
[2022-07-09] MEDS ORDERED: MAGNESIUM HYDROXIDE 2,400 MG/10 ML CUP PO PRN (14:27)
[2022-07-09] MEDS ORDERED: SENNOSIDES-DOCUSATE SODIUM 1 EACH TAB PO PRN (14:28)
--- NOTE | 2022-07-09 18:05 | P.PN ---
Subjective Progress Note Date: 07/09/22 No BM, No Nausea or vomiting, concerned for chemo this Saturday, explained maybe held if not improving Objective - Vital Signs Vital signs: Vital Signs Temp 98.3 F 07/09/22 14:23 Pulse 97 07/09/22 14:23 Resp 18 07/09/22 14:23 BP 126/79 07/09/22 14:23 Pulse Ox 96 07/09/22 14:23 FiO2 Intake & Output 07/08/22 07/09/22 07/09/22 18:59 06:59 18:59 Intake Total 478 Balance 478 Intake: Oral 478 Other: Voiding Method Toilet # Voids 2 2 1 - Exam Gen: NAD HEENT: Conjunctival pallor. No scleral icterus. Mucosa moist. Neck: Supple Lungs: No respiratory distress Heart: Regular rate Abd: Soft, tender, Hypoactive BS MSK: appropriate strength Neuro: Alert and oriented x3 Skin: No jaundice Psych: Appropriate affect - Labs CBC & Chem 7: 07/09/22 09:20 07/08/22 03:38 Labs: Abnormal Lab Results - Last 24 Hours (Table) 07/09/22 Range/Units 09:20 RBC 3.90 L (4.30-5.90) m/uL Hgb 9.7 L D (13.0-17.5) gm/dL Hct 31.6 L (39.0-53.0) % MCH 24.8 L (25.0-35.0) pg MCHC 30.6 L (31.0-37.0) g/dL RDW 19.6 H (11.5-15.5) % Plt Count 702 H (150-450) k/uL Assessment and Plan Plan: Assessment and Plan Assessment: 1. Metastatic colon cancer 2. Hematemesis - Improved 3. Intractable nausea and vomiting - Resolved 4. Abdominal pain and constipation - Same Plan: - Continue sppportive care and monitor labs, will continue to evaluate regarding chemo plans on Saturday Dr. Tavera: I have completed the full history and physical and developed the above impression and plan, agree with dictation, dictated as a ascribe
[2022-07-09] MEDS: SODIUM CHLORIDE 0.9% 1,000 ML IV SCH (22:46)
[2022-07-10] MEDS ORDERED: LOPERAMIDE 2 MG CAP PO STA (01:40)
[2022-07-10] MEDS: PANTOPRAZOLE 40 MG/10 ML VIAL IVP SCH (07:54)
[2022-07-10] MEDS: ENOXAPARIN 40 MG/0.4 ML SYRINGE SQ SCH (07:54)
[2022-07-10] MEDS: SODIUM CHLORIDE 0.9% 1,000 ML IV SCH ×2 (07:55→21:00)
[2022-07-10 09:10] LABS: Anisocytosis Slight; HCT 33.8 % (39.0-53.0); HGB 10.1 gm/dL (13.0-17.5); Hypochromasia Marked; MCH 24.4 pg (25.0-35.0); MCHC 29.9 g/dL (31.0-37.0); MCV 81.7 fL (80.0-100.0); Mean Platelet Volume 8.3; Microcytosis Slight; Platelet Count 806 k/uL (150-450); RBC 4.15 m/uL (4.30-5.90); RDW 19.8 % (11.5-15.5); WBC 6.7 k/uL (3.8-10.6)
[2022-07-10 09:28] LABS: ALT 16 U/L (4-49); AST 40 U/L (17-59); African American GFR (CKD) >90 (>60 ml/min/1.73 sqM); Albumin 2.6 g/dL (3.5-5.0); Albumin/Globulin Ratio 1.1; Alkaline Phosphatase 100 U/L (38-126); Anion Gap 9 mmol/L; Blood Urea Nitrogen 5 mg/dL (9-20); Calcium 8.2 mg/dL (8.4-10.2); Carbon Dioxide 26 mmol/L (22-30); Chloride 104 mmol/L (98-107); Globulin 2.4 g/dL; Glucose 109 mg/dL (74-99); Non-African American GFR(CKD) >90 (>60 ml/min/1.73 sqM); Potassium 3.3 mmol/L (3.5-5.1); Sodium 139 mmol/L (137-145); Total Bilirubin 0.4 mg/dL (0.2-1.3)
--- NOTE | 2022-07-10 12:04 | P.PN ---
Subjective Progress Note Date: 07/10/22 CHIEF COMPLAINT: Abdominal pain HISTORY OF PRESENT ILLNESS: Patient sitting up in bed comfortably. Patient complains of having a lot of diarrhea last night. He reports watery stools every 30 minutes during the night. He was given a dose of Imodium. He is no longer having diarrhea. He did report some left lower abdominal pain but again it is better this morning. He denies any nausea vomiting. Denies any blood in his stools or black stools. He did tolerate chopped diet this morning. Afebrile. Hemoglobin continues to improve at 10.1 PHYSICAL EXAM: VITAL SIGNS: Reviewed. GENERAL: Well-developed in no acute distress. HEENT: No sclera icterus. Extraocular movements grossly intact. Moist buccal mucosa. Head is atraumatic, normocephalic. ABDOMEN: Soft. Nondistended. Minimal tenderness upon palpation a left lower abdomen Previous abdominal scars NEUROLOGIC: Alert and oriented. Cranial nerves II through XII grossly intact. ASSESSMENT: 1. Intractable abdominal pain 2. Coffee ground emesis resolved PLAN: -Continue supportive care -Continue PPI -No plans for endoscopy. Hemoglobin remained stable Physician Water Hauler note has been reviewed by physician. Signing provider agrees with the documented findings, assessment, and plan of care. I have personally seen and examined the patient, reviewed the REFINERY OPERATOR /PAs history, exam and MDM and agree with the assessment and plan as written. Based on total visit time, I have performed more than 50% of the visit. As above: Patient doing well today. He had some brown colored loose stools last night. Denies pain. Tolerating diet. Stable for discharge. Objective - Vital Signs Vital signs: Vital Signs Temp 98.6 F 07/10/22 07:00 Pulse 83 07/10/22 07:00 Resp 16 07/10/22 08:00 BP 127/82 07/10/22 07:00 Pulse Ox 95 07/10/22 07:00 FiO2 Intake & Output 07/09/22 07/10/22 07/10/22 18:59 06:59 18:59 Other: Voiding Method Toilet Toilet # Voids 1 3 # Bowel Movements 3 - Labs CBC & Chem 7: 07/10/22 08:55 07/10/22 08:55 Labs: Abnormal Lab Results - Last 24 Hours (Table) 08/30/22 08/30/22 Range/Units 08:55 08:55 RBC 4.15 L (4.30-5.90) m/uL Hgb 10.1 L (13.0-17.5) gm/dL Hct 33.8 L (39.0-53.0) % MCH 24.4 L (25.0-35.0) pg MCHC 29.9 L (31.0-37.0) g/dL RDW 19.8 H (11.5-15.5) % Plt Count 806 H (150-450) k/uL Potassium 3.3 L (3.5-5.1) mmol/L BUN 5 L (9-20) mg/dL Glucose 109 H (74-99) mg/dL Calcium 8.2 L (8.4-10.2) mg/dL Total Protein 5.0 L (6.3-8.2) g/dL Albumin 2.6 L (3.5-5.0) g/dL
[2022-07-10] MEDS ORDERED: POTASSIUM CHLORIDE ER 20 MEQ TAB.ER PO STA (15:23)
--- NOTE | 2022-07-10 15:29 | P.PN ---
Subjective Progress Note Date: 07/10/22 Hospital course: Patient is a 61-year-old male with a past medical history of metastatic colon cancer (status post resection with colostomy and subsequent reversal, multiple rounds of chemotherapy, following with Dr. Andrade with next chemotherapy treatment scheduled Saturday07/13/22). He presented to the emergency department with a chief complaint of intractable abdominal pain, nausea, and vomiting. He was admitted under our services with consultation to general surgery. Physical examination: Patient seen and fully evaluated at bedside this morning. Diet was advanced to regular chopped diet this morning and up to this point he is tolerating well. He reports multiple episodes of loose stools/diarrhea yesterday evening status post taking MiraLAX and docusate. Constipation has resolved. Patient has had no further episodes reported of nausea or vomiting. Hemoglobin is stable at 10.1 this morning. Potassium slightly low at 3.3 being replaced. We will monitor overnight how well patient tolerates advancement of diet and plan for discharge home tomorrow morning. General: non toxic, no distress, appears at stated age Derm: warm, dry Head: atraumatic, normocephalic, symmetric Eyes: EOMI, no lid lag, anicteric sclera Mouth: no lip lesion, mucus membranes moist Cardiovascular: S1S2 reg, no murmur, positive posterior tibial pulses bilaterally. Lungs: CTA bilateral, no rhonchi, no rales , no accessory muscle use Abdominal: soft, slight tenderness to left lower quadrant upon palpation, no guarding, no appreciable organomegaly Ext: no gross muscle atrophy, no edema, no contractures Neuro: CN II-XI grossly intact, no focal neuro deficits Psych: Alert, oriented, appropriate affect Assessment and plan of care: Intractable abdominal pain, nausea, and vomiting Constipation, resolved Coffee-ground emesis, resolved -Gen. surgery consulted, appreciate further recommendations. Reports no plans for surgical interventions at this time. -Continue gentle IV fluid hydration -Continue with antiemetic Zofran as needed for nausea/vomiting with benzodiazepines when necessary. -Continue with PPI, Protonix -Hemoglobin stable at 10.1 this morning -Diet was advanced to regular diet this morning. We will monitor how well patient tolerates over the next 24 hours with tentative plans to discharge home tomorrow morning. Intractable hiccups, resolved -Patient received IM Thorazine yesterday afternoon for reports of intractable hiccups. Patient reports he Resolved within a Couple Hours of Receiving Medication and Have Not Returned. Metastatic colon cancer -Continue to follow up outpatient with Dr. Andrade CODE STATUS: Full Code DVT prophylaxis: Lovenox Discussed with: Patient and RN Anticipated discharge date: Tomorrow morning Anticipated discharge place: Home A total of 33 minutes was spent on the care of this complex patient more than 50% of the time was spent in counseling and care coordination. I reviewed the documentation as provided by the CORTNEY above, who is the original author of this note. I agree with the documented assessment and plan, with the following changes: none Objective - Vital Signs Vital signs: Vital Signs Temp 98.6 F 07/10/22 07:00 Pulse 83 07/10/22 07:00 Resp 16 07/10/22 07:00 BP 127/82 07/10/22 07:00 Pulse Ox 95 07/10/22 07:00 FiO2 Intake & Output 07/09/22 07/10/22 07/10/22 18:59 06:59 18:59 Other: Voiding Method Toilet # Voids 1 3 # Bowel Movements 3 - Labs CBC & Chem 7: 07/10/22 08:55 07/10/22 08:55 Labs: Abnormal Lab Results - Last 24 Hours (Table) 07/09/22 Range/Units 09:20 RBC 3.90 L (4.30-5.90) m/uL Hgb 9.7 L D (13.0-17.5) gm/dL Hct 31.6 L (39.0-53.0) % MCH 24.8 L (25.0-35.0) pg MCHC 30.6 L (31.0-37.0) g/dL RDW 19.6 H (11.5-15.5) % Plt Count 702 H (150-450) k/uL
--- NOTE | 2022-07-10 18:19 | P.PN ---
Subjective Progress Note Date: 07/10/22 Principal diagnosis: met colon adenocarcinoma In f/u today pt is reporting feeling better then on admit, last vomited 2 days ago, he had several diarrhea stools yesterday so he took an antidiarrheal and has had no BM since. Abd pain is stable. He is wearing his abd binder. Objective - Vital Signs Vital signs: Vital Signs Temp 98.6 F 07/10/22 07:00 Pulse 83 07/10/22 07:00 Resp 16 07/10/22 08:00 BP 127/82 07/10/22 07:00 Pulse Ox 95 07/10/22 07:00 FiO2 Intake & Output 07/09/22 07/10/22 07/10/22 18:59 06:59 18:59 Other: Voiding Method Toilet Toilet # Voids 1 3 # Bowel Movements 3 - Constitutional General appearance: Present: average body habitus, cooperative, no acute distress - EENT Eyes: Present: anicteric sclerae, EOMI ENT: Present: hearing grossly normal, normal oropharynx - Respiratory Respiratory: bilateral: CTA - Cardiovascular Rhythm: regular Heart sounds: normal: S1, S2 Abnormal Heart Sounds: Absent: systolic murmur, diastolic murmur, rub, S3 Gallop, S4 Gallop, click, other - Peripheral edema leg Peripheral Edema: bilateral: None - Gastrointestinal Gastrointestinal Comment(s): abd binder on, tinkling BS - Integumentary Integumentary: Present: normal - Neurologic Neurologic: Present: CNII-XII intact - Musculoskeletal Musculoskeletal: Present: strength equal bilaterally - Psychiatric Psychiatric: Present: A&O x's 3, appropriate affect, intact judgment & insight - Labs CBC & Chem 7: 07/10/22 08:55 07/10/22 08:55 Labs: Abnormal Lab Results - Last 24 Hours (Table) 07/10/22 07/10/22 Range/Units 08:55 08:55 RBC 4.15 L (4.30-5.90) m/uL Hgb 10.1 L (13.0-17.5) gm/dL Hct 33.8 L (39.0-53.0) % MCH 24.4 L (25.0-35.0) pg MCHC 29.9 L (31.0-37.0) g/dL RDW 19.8 H (11.5-15.5) % Plt Count 806 H (150-450) k/uL Potassium 3.3 L (3.5-5.1) mmol/L BUN 5 L (9-20) mg/dL Glucose 109 H (74-99) mg/dL Calcium 8.2 L (8.4-10.2) mg/dL Total Protein 5.0 L (6.3-8.2) g/dL Albumin 2.6 L (3.5-5.0) g/dL Assessment and Plan (1) Intractable abdominal pain Current Visit: Yes Status: Acute Code(s): R10.9 - UNSPECIFIED ABDOMINAL PAIN SNOMED Code(s): 43571777 (2) Intractable nausea and vomiting Current Visit: Yes Status: Acute Code(s): R11.2 - NAUSEA WITH VOMITING, UNS PECIFIED SNOMED Code(s): 052200368 Plan: Pt admitting c/o are improved with hydration, antiemetics, and other supportive meds. Flet that pt likely has adhesions that are causing his symptoms and possibly a pseudo obstruction. He does well after supportive care. Will have to try and cont outpt Pt is ok for DC from a Onc standpoint once cleared by Attending and Consulting MDs Plan is to go ahead with chemo this Saturday and have new scan after. F/U with Dr. Andrade next week to review. Pt understands the plan and is in agreement
[2022-07-11] MEDS: SODIUM CHLORIDE 0.9% 1,000 ML IV SCH (09:21)
[2022-07-11] MEDS: ENOXAPARIN 40 MG/0.4 ML SYRINGE SQ SCH (09:22)
[2022-07-11] MEDS: PANTOPRAZOLE 40 MG/10 ML VIAL IVP SCH (09:22)
--- NOTE | 2022-07-11 10:22 | CDI ---
Documentation Clarification Form Date: 07/11/2022 10:03:05 AM From: Geetha Huber CCS, CCDS Admit Date: 07/09/2022 08:51:00 AM Patient Name: Elliot Garrison Visit Number: [id number] Discharge Date: ATTENTION: The Clinical Documentation Specialists (CDI) and [facility] Coding Staff appreciate your assistance in clarifying documentation. Please respond to the clarification below the line at the bottom and electronically sign. The CDI & [facility] Coding staff will review the response and follow-up if needed. Please note: Queries are made part of the Legal Health Record. If you have any questions, please contact the author of this message via ITS. Dr. Natasha Christianson: The patients principal diagnosis the diagnosis that was chiefly responsible for the admission - has not been clearly identified and clarification is requested. The patient presented with the following: Abdominal Pain, Nausea, Dark Emesis, Lower Left Quadrant Abdominal Pain. The patient is in chemotherapy for Colon Cancer status post Bowel Resection and with Metastatic Disease to the Liver and possibly Lungs. History/Risk factors per the 07/06 H/P: Colon cancer in Chemotherapy, GERD, Prostate Disorder, GI Bleed secondary to stomach ulcers, Surgery History: Bowel resection, Cardiac Valve Replacement, Colostomy with reversal. Clinical Indicators: Presented to the ED on 07/06 via EMS with Abdominal Pain, Nausea and Dark Emesis. Pain to LLQ. Recently admit/discharge with same. 07/06 VS: T 97.6, P 104, R 18, BP 134/90, PO 97 RA, BMI: 22.0 07/06 LAB: Hgb 11.4, Hct 36.5, Plt Ct 547, Lymph 0.7; PT 12.2; BUN 22, Glucose 101, Calcium 8.1, Total Prot 5.2, Albumin 2.7. 07/06 Gastric Occult Blood: Positive. 07/07 Surgery Consult: Abdominal pain and coffee ground emesis, etiology is unclear but could be on the basis of cancer progression. 07/07 Oncology Consult: Doubt symptoms are related to underlying colon cancer. 07/10 Subsequent Oncology Progress Note: Adhesions may be causing symptoms and possibly a pseudo obstruction. Treatment 07/06 Admit to Observation Status, IV Morphine 4 mg x1, IV Na Chl 1,000 mls @ 999 mls/hr q1H, IV Zofran 4 mg x1, IV Portonix 80 mg x1, IV Dilaudid 1 mg q3H, IV Ativan 0.5 mg q6H, IV Na Chl 1,000 mls @ 80 mls/hr q12H. 07/07: I Protonix 40 mg Daily, IV Compazine 10 mg q6H/prn. 07/08: Lovenox 40 mg Daily, po Senokot BID. 07/09 Admit to Inpatient Status: IM Thorazine 25 mg x1, po Senokot BID/prn, po Imodium 4 mg x1, po KCL 40 meq x1 In your professional opinion, can you please clarify which diagnosis, after study, was the reason chiefly responsible for the admission? Abdominal Pain, please specify cause if known: [ ] Abdominal Pain due to Constipation [ ] Abdominal Pain due to Colon Cancer with mets to the Liver [ ] Abdominal Pain due to Adhesions (please specify area) [ ] Abdominal Pain due to other cause, please specify: [ ] Abdominal Pain due to unknown cause [ ] Other, please specify: [ ] Unable to determine (Template Last Revised: January 2021) abdominal pain due to colon CA MTDD
[2022-07-11] MEDS ORDERED: PROCHLORPERAZINE 5 MG TAB PO PRN (10:54)
--- NOTE | 2022-07-11 10:54 | P.DS ---
Providers Date of admission: 07/09/22 08:51 Expected date of discharge: 07/11/22 Attending physician: Sylvain Ram MD Consults: 07/06/22 15:34 Consult Physician Routine Consulting Provider: Heike Traylor Consult Reason/Comments: cancer Do you want consulting provider notified?: Yes Consult Physician Routine Consulting Provider: Moises Tucker Consult Reason/Comments: hematemesis Do you want consulting provider notified?: Already Contacted Primary care physician: Amaury Pulido MD Hospital Course: Discharge Diagnosis: Acute on chronic abdominal pain resulting from metastatic colon cancer as well as constipation Intractable nausea, and vomiting, resolved Constipation, resolved Coffee-ground emesis, resolved. Patient was evaluated by general surgery with no plans for surgical interventions and they are recommending continued low fiber diet. Intractable hiccups, resolved. Metastatic colon cancer. Continue to follow up outpatient with Dr. Andrade on Saturday07/13/22 as scheduled. Hospital Course: Patient is a 61-year-old male with a past medical history of metastatic colon cancer (status post resection with colostomy and subsequent reversal, multiple rounds of chemotherapy, following with Dr. Andrade with next chemotherapy treatment scheduled Saturday07/13/22). He presented to the emergency department with a chief complaint of intractable abdominal pain, nausea, and vomiting. He was admitted under our services with consultation to general surgery. Nausea and vomiting had resolved. Patient was evaluated by general surgery and oncology. Patient was initially provided with bowel rest and IV fluid hydration and diet was slowly progressed to low fiber diet. Patient tolerating well. He has had no further episodes of nausea or vomiting and had no further episodes of coffee- ground emesis since symptoms prior to arrival. Hemoglobin stable at 10.1. Patient is medically stable at this time and has been cleared by general surgery with no plans for surgical interventions or endoscopy at this time. Oncology recommending patient follow-up outpatient in their office on Saturday07/13/22 as scheduled for chemotherapy treatment and follow-up visit. Patient reports he is feeling much better at this time, all discharge instructions reviewed and all questions answered. Patient medically stable for discharge at this time. Physical examination: General: non toxic, no distress, appears at stated age Derm: warm, dry Head: atraumatic, normocephalic, symmetric Eyes: EOMI, no lid lag, anicteric sclera Mouth: no lip lesion, mucus membranes moist Cardiovascular: S1S2 reg, no murmur, positive posterior tibial pulses bilat erally. Lungs: CTA bilateral, no rhonchi, no rales , no accessory muscle use Abdominal: soft, slight tenderness to left lower quadrant upon palpation, no guarding, no appreciable organomegaly Ext: no gross muscle atrophy, no edema, no contractures Neuro: CN II-XI grossly intact, no focal neuro deficits Psych: Alert, oriented, appropriate affect A total of 35 minutes of time were spent preparing this complex discharge summary. Pt was discharged on 07/11/22 at 9:52 AM. I reviewed the documentation as provided by the CORTNEY above, who is the original author of this note. I agree with the documented assessment and plan, with the following changes: none Patient Condition at Discharge: Stable Plan - Discharge Summary Discharge Rx Participant: No New Discharge Prescriptions: New HYDROcodone/APAP 7.5-325MG [[place] 7.5-325] 1 tab PO Q4H PRN 3 Days #18 tab PRN Reason: Pain Prochlorperazine [Compazine] 5 mg PO Q6HR PRN #30 tab PRN Reason: Nausea And Vomiting Continue Lactobacillus Acidoph & Bulgar [Lactinex] 1 packet PO TID Multivitamins, Thera [Multivitamin (formulary)] 1 tab PO DAILY Lactulose [Cephulac] 20 gm PO DAILY PRN 30 Days #1000 ml PRN Reason: Constipation Sennosides [Senokot] 8.6 mg PO DAILY #30 tab Discontinued HYDROcodone/APAP 5-325MG [[place] 5-325] 1 tab PO Q6HR PRN 3 Days #12 tab PRN Reason: Pain Discharge Medication List Lactulose [Cephulac] 20 gm PO DAILY PRN 30 Days #1000 ml 07/03/22 [Rx] Sennosides [Senokot] 8.6 mg PO DAILY #30 tab 07/03/22 [Rx] Lactobacillus Acidoph & Bulgar [Lactinex] 1 packet PO TID 07/06/22 [History] Multivitamins, Thera [Multivitamin (formulary)] 1 tab PO DAILY 07/06/22 [History] HYDROcodone/APAP 7.5-325MG [[place] 7.5-325] 1 tab PO Q4H PRN 3 Days #18 tab 07/11/22 [Rx] Prochlorperazine [Compazine] 5 mg PO Q6HR PRN #30 tab 07/11/22 [Rx] Follow up Appointment(s)/Referral(s): Francis Andrade MD [STAFF PHYSICIAN] - 1 Week (Follow-up as scheduled on Saturday) Amaury Pulido MD [Primary Care Provider] - 1-2 days [facility], [NON-STAFF] - As Needed ([facility] will call you to schedule your in home nursing and physical therapy visits. ) Patient Instructions/Handouts: Acute Nausea and Vomiting (DC) Activity/Diet/Wound Care/Special Instructions: Activity: As tolerated. Take breaks as needed. Diet: Heart healthy and carb consistent diet. Avoid salts, or foods with hidden salts such as canned or boxed foods and frozen dinners. Extra salt makes your heart work harder and traps the fluid in your body for longer. Special Instructions: Take all of your medications as directed and remember to keep all of your doctor's appointments and follow-up as needed. Thank you for allowing us to participate in your care, it was truly a pleasure having you for our patient!!! Discharge Disposition: HOME SELF-CARE
[2022-07-11 11:18] VITALS: BP 121/75; PULSE 67; RESP 15; TEMP 97.4
--- NOTE | 2022-07-11 12:02 | P.PN ---
Subjective Progress Note Date: 07/11/22 Principal diagnosis: Abdominal pain Patient is doing well today. Denies pain. Tolerating diet. No diarrhea. No rectal bleeding or melena. Objective - Vital Signs Vital signs: Vital Signs Temp 97.4 F L 07/11/22 11:17 Pulse 67 07/11/22 11:17 Resp 15 07/11/22 11:17 BP 121/75 07/11/22 11:17 Pulse Ox 98 07/11/22 07:00 FiO2 Intake & Output 07/10/22 07/11/22 07/11/22 18:59 06:59 18:59 Other: Voiding Method Toilet Toilet Toilet # Voids 1 1 1 - Exam Abdomen: Soft, nontender, nondistended - Labs CBC & Chem 7: 07/10/22 08:55 07/10/22 08:55 Assessment and Plan (1) Intractable abdominal pain Narrative/Plan: Patient doing well today. Continue low fiber diet. May discharge. Follow-up as needed. Current Visit: Yes Status: Acute Code(s): R10.9 - UNSPECIFIED ABDOMINAL PAIN SNOMED Code(s): 16263511
--- NOTE | 2022-07-11 14:42 | P.PN ---
Subjective Progress Note Date: 07/11/22 Principal diagnosis: met colon adenocarcinoma In f/u today pt cont to feel good today, no vomiting for several days now, he had a mostly formed stool today, abd pain is managable. He is wearing his abd binder. Objective - Vital Signs Vital signs: Vital Signs Temp 97.4 F L 07/11/22 11:17 Pulse 67 07/11/22 11:17 Resp 15 07/11/22 11:17 BP 121/75 07/11/22 11:17 Pulse Ox 98 07/11/22 07:00 FiO2 Intake & Output 07/10/22 07/11/22 07/11/22 18:59 06:59 18:59 Other: Voiding Method Toilet Toilet Toilet # Voids 1 1 1 - Constitutional General appearance: Present: average body habitus, cooperative, no acute distress - EENT Eyes: Present: anicteric sclerae, EOMI ENT: Present: hearing grossly normal - Respiratory Details: respirations even and unlabored - Gastrointestinal General gastrointestinal: Present: normal bowel sounds, soft - Integumentary Integumentary: Present: normal - Neurologic Neurologic: Present: CNII-XII intact - Musculoskeletal Musculoskeletal: Present: strength equal bilaterally - Psychiatric Psychiatric: Present: A&O x's 3, appropriate affect, intact judgment & insight - Labs CBC & Chem 7: 07/10/22 08:55 07/10/22 08:55 Assessment and Plan (1) Intractable abdominal pain Status: Acute Code(s): R10.9 - UNSPECIFIED ABDOMINAL PAIN SNOMED Code(s): 20999337 (2) Intractable nausea and vomiting Status: Acute Code(s): R11.2 - NAUSEA WITH VOMITING, UNSPECIFIED SNOMED Code(s): 249033842 Plan: Pt admitting c/o are improved with hydration, antiemetics, and other supportive meds. [place] that pt likely has adhesions that are causing his symptoms and possibly a pseudo obstruction. He does well after supportive care. Will have to try and cont supportive care, hydration outpt did discuss with attending [facility] CARE COOK. She is going to provide patient with antibiotics and some pain medications. We will be seeing patient on Saturday. We can reassess medications, provide refills or, make adjustments if needed Plan is to go ahead with chemo Saturday and have new scan after. F/U with Dr. Andrade next week to review. Pt understands the plan and is in agreement
--- NOTE | 2022-07-12 16:14 | CDI ---
Documentation Clarification Form Date: 07/12/2022 03:57:19 PM From: Rubi Ross Phone: Admit Date: 07/09/2022 08:51:00 AM Patient Name: Elliot Garrison Visit Number: [id number] Discharge Date: 07/11/2022 12:21:00 PM ATTENTION: The Clinical Documentation Specialists (CDI) and [facility] Coding Staff appreciate your assistance in clarifying documentation. Please respond to the clarification below the line at the bottom and electronically sign. The CDI & [facility] Coding staff will review the response and follow-up if needed. Please note: Queries are made part of the Legal Health Record. If you have any questions, please contact the author of this message via ITS. Dr. Sylvain Ram Thrombocytosis is documented in the H&P. Likewise, Patient is on palliative chemotherapy with irinotecan/bevacizumab (last on 06/29/2022). Please clarify if there is a relationship between the diagnoses. History/Risk Factors: 61yo M, met colon ca to liver on palliative chemotherapy , Hematemesis, Intract N & V, Abd pain, ventral hernia, GI bleed sec to stomach ulcers, pseudo obstruction Clinical Indicators: FOBT positive WBC 7.1 Hgb 11.4 from 1011 baseline Platelets 547, at baseline Treatment: continue with symptomatic control of his nausea. He was having hiccups, will add Compazine. Defer to surgery about EGD as he did have hematemesis and unclear etiology of his vomiting. Hold chemotherapy while inpatient. Please clarify the relationship, if any, which is clinically appropriate for this patient: [ ] Thrombocytosis is due to Chemotherapy [ ] Thrombocytosis is not due to Chemotherapy [ ] Thrombocytosis is due to malignancy [ ] Thrombocytosis is not due to malignancy [ ] Other explanation of clinical findings (please specify) [ ] Unable to determine (no explanation for clinical findings) I did not see this patient, please reach out to either Dr. Burdick or Dr. David HO
--- NOTE | 2022-07-18 09:58 | CDI ---
Documentation Clarification Form Date: 07/12/2022 03:57:00 PM From: Rubi Ross Phone: Admit Date: 07/09/2022 08:51:00 AM Patient Name: Elliot Garrison Visit Number: [id number] Discharge Date: 07/11/2022 12:21:00 PM ATTENTION: The Clinical Documentation Specialists (CDI) and [facility] Coding Staff appreciate your assistance in clarifying documentation. Please respond to the clarification below the line at the bottom and electronically sign. The CDI & [facility] Coding staff will review the response and follow-up if needed. Please note: Queries are made part of the Legal Health Record. If you have any questions, please contact the author of this message via ITS. Dr. Martin Hernandez Thrombocytosis is documented in the H&P. Likewise, Patient is on palliative chemotherapy with irinotecan/bevacizumab (last on 06/29/2022). Please clarify if there is a relationship between the diagnoses. History/Risk Factors: 61yo M, met colon ca to liver on palliative chemotherapy , Hematemesis, Intract N & V, Abd pain, ventral hernia, GI bleed sec to stomach ulcers, pseudo obstruction Clinical Indicators: FOBT positive WBC 7.1 Hgb 11.4 from 1011 baseline Platelets 547, at baseline Treatment: continue with symptomatic control of his nausea. He was having hiccups, will add Compazine. Defer to surgery about EGD as he did have hematemesis and unclear etiology of his vomiting. Hold chemotherapy while inpatient. Please clarify the relationship, if any, which is clinically appropriate for this patient: [ ] Thrombocytosis is due to Chemotherapy [ ] Thrombocytosis is not due to Chemotherapy [ ] Thrombocytosis is due to malignancy [ ] Thrombocytosis is not due to malignancy [ ] Other explanation of clinical findings (please specify) [ ] Unable to determine (no explanation for clinical findings) (Template Last Revised: January 2021) thrombocytosis likely from iron def but no workup was done MTDD
== END 2022-07-11 12:21 | disposition home or self-care (01) | DRG 947 ==
LOC: EC 11:41 → 6NMEDSUR 15:34 → OBSVTOIN 07-09 08:51
PROVIDERS: ADMIT Internal Medicine; ATTEND Internal Medicine
DX: G89.3 Neoplasm related pain (acute) (chronic) (principal); K25.4 Chronic or unspecified gastric ulcer with hemorrhage; K56.50 Intestinal adhesions [bands], unspecified as to partial versus complete obstruction; K92.0 Hematemesis; C78.7 Secondary malignant neoplasm of liver and intrahepatic bile duct; C18.9 Malignant neoplasm of colon, unspecified; D63.8 Anemia in other chronic diseases classified elsewhere; K59.00 Constipation, unspecified; K43.9 Ventral hernia without obstruction or gangrene; D75.838 Other thrombocytosis; R06.6 Hiccough; R19.7 Diarrhea, unspecified; Z92.21 Personal history of antineoplastic chemotherapy; Z88.2 Allergy status to sulfonamides; Z79.899 Other long term (current) drug therapy; Z86.19 Personal history of other infectious and parasitic diseases; Z90.49 Acquired absence of other specified parts of digestive tract; Z95.2 Presence of prosthetic heart valve; Z80.9 Family history of malignant neoplasm, unspecified; Z82.61 Family history of arthritis; Z85.05 Personal history of malignant neoplasm of liver
CPT/HCPCS: 36415; 80048; 80053; 81001; 82150; 82271; 83605; 83690; 83735; 84100; 85025; 85027; 85610; 85730; 96361; 96374; 96375; 99284; 99285

== ENCOUNTER → 2022-07-13 | Outpatient (CLI) | payer MEDICARE, OTHER ==
--- NOTE | 2022-07-13 15:04 | CT ---
EXAMINATION TYPE: CT ChestAbdPelvis w con DATE OF EXAM: 07/13/2022 COMPARISON: CT abdomen and pelvis dated 07/01/2022 CT chest abdomen pelvis dated 02/05/2022. HISTORY: rectal CA CT DLP: 616.1 mGycm Automated exposure control for dose reduction was used. CONTRAST: CT scan of the chest, abdomen and pelvis is performed with Oral Contrast and with IV Contrast, patien t injected with 100 mL of Isovue 300. FINDINGS: CT chest; There is a Mediport catheter on the right. There is no suspicious lung mass or nodule. There is no airspace consolidation or interstitial densit y. There is no pleural effusion or pneumothorax. There is borderline aneurysmal dilatation of the ascending thoracic aorta. There is no mediastinal, h ilar or axillary adenopathy. No focal osseous abnormalities are seen within the thorax. CT abdomen and pelvis: There are innumerable ill-defined low-density lesions throughout the liver consistent with diffuse me tastatic disease. There is been no significant interval change. There is evidence for postsurgical ch kristin in the anterior liver. There is no focal mass within the pancreas or adrenal glands. The spleen is absent. The caliber of the abdominal aorta is normal hemorrhage. No solid renal mass or left renal calcifications the largest of which is. There are postsurgical changes involving the transverse colon. There is no bowel obstruction. There i s an anterior abdominal wall hernia containing bowel loops but no evidence of strangulation or ischem ia. There is no bowel wall inflammation. There is no free intraperitoneal air or fluid. There is no pelvic mass or adenopathy. There is prostatic hypertrophy calcification the osseous struc tures are intact. IMPRESSION: 1. No evidence of metastatic disease within the thorax. 2. Diffuse hepatic metastasis essentially unchanged compared to previous. 3. Stable incidental findings as described above all of which were present on the prior study.
== END | disposition home or self-care (01) ==
LOC: RADCTMAIN 12:36
PROVIDERS: ATTEND Internal Medicine Hematology & Oncology
DX: Z03.89 Encounter for observation for other suspected diseases and conditions ruled out (principal); C21.8 Malignant neoplasm of overlapping sites of rectum, anus and anal canal
CPT/HCPCS: 82565; 84520; 71260; 74177; 36415; Q9967

== ENCOUNTER 2022-08-04 16:13 | Inpatient (IN) | payer MEDICARE, OTHER ==
--- NOTE | 2022-08-04 17:44 | ED ---
General Adult HPI - General Chief complaint: Weakness Stated complaint: weakness Time Seen by Provider: 08/04/22 16:19 Source: patient Mode of arrival: EMS Limitations: no limitations - History of Present Illness Initial comments: Dictation was produced using [employer] dictation software. please excuse any grammatical, word or spelling errors. Chief Complaint: 61-year-old male with past medical history of cancer on chemotherapy presents to the emergency department for generalized weakness and rectal pain. History of Present Illness: 61-year-old male he has cancer history. Patient has history of colon cancer and lung cancer. Patient in emergency department today for rectal pain. Patient arrived via EMS. EMS provided patient 50 g of fentanyl prior to arrival. Patient states that he has history of rectal pain. States that his stool is soft. No nausea or vomiting. Does complain of diffuse abdominal pain. Family reports the patient is showing signs of generalized weakness. Denies any fever or constitutional symptoms. Patient gets frequent infusions for treatment of his cancer. Chart review shows the patient was a dmitted to the hospital last month. Patient has metastatic colon adenocarcinoma. During patient's recent admission he is admitted for intractable abdominal pain and intractable nausea and vomiting. Was admitted for supportive medications. The ROS documented in this emergency department record has been reviewed and confirmed by me. Those systems with pertinent positive or negative responses h ave been documented in the HPI. All other systems are other negative and/or noncontributory. PHYSICAL EXAM: General Impression: Alert and oriented x3, acute distress secondary to pain HEENT: Normocephalic atraumatic, extra-ocular movements intact, pupils equal and reactive to light bilaterally, mucous membranes moist. Cardiovascular: Heart regular rate and rhythm Chest: Able to complete full sentences, no retractions, no tachypnea Abdomen: abdomen soft, non-tender, non-distended, no organomegaly Musculoskeletal: Pulses present and equal in all extremities, no peripheral edema Motor: no focal deficits noted Neurological: CN II-XII grossly intact, no focal motor or sensory deficits noted Skin: Intact with no visualized rashes Psych: Normal affect and mood ED course: 61-year-old male with past medical history of metastatic adenocarcinoma colon. Vital signs upon arrival are within acceptable limits. Laboratory evaluation obtained. Leukocytosis of 18.7 of unclear significance. Hemoglobin is 9.8. Coag panel is unremarkable. Metabolic panel was nonacute. Cervical blood is positive. Liver enzymes are baseline. Patient reevaluated at 7:00 PM. He does not have any localizing symptoms to suggest cause of leukocytosis. Patient is high risk due to cancer and chemotherapy. Disposition options were discussed. He is agreeable for admission for concerns of SIRS. Patient does have history of GI bleed however does have history of cancer. She will open stable. She is not complaining of any melanotic stools or bright red blood per rectum. His level today appears to be around baseline compared to the last month. EKG interpretation: Ventricular rate 84, sinus rhythm, FL interval 186, QS 131, QTC 411. No FL prolongation, no QTC prolongation, no ST or T-wave changes noted. EKG compared to 12/27/2020 showing no changes. Overall, this EKG is unremarkable - Related Data Home Medications Medication Instructions Recorded Confirmed HYDROcodone/APAP 5-325MG [[place] 1 tab PO Q6HR PRN 08/04/22 08/04/22 5-325] Megestrol Acetate 400 mg PO DAILY 08/04/22 08/04/22 Sennosides [Senokot] 8.6 mg PO HS 08/04/22 08/04/22 Allergies Allergy/AdvReac Type Severity Reaction Status Date / Time Sulfa (Sulfonamide Allergy Anaphylaxis Verified 08/04/22 20:54 Antibiotics) Review of Systems ROS Statement: Those systems with pertinent positive or pertinent negative responses have been documented in the HPI. ROS Other: All systems not noted in ROS Statement are negative. Past Medical History Past Medical History: Cancer, GERD/Reflux, Prostate Disorder Additional Past Medical History / Comment(s): colon cancer-LAST CHEMO ON 03/16/22. GI BLEED MARCH 2020 possible lung Mets History of Any Multi-Drug Resistant Organisms: C-DIFF Date of last positivie culture/infection: 03/21/2022 MDRO Source:: stool Past Surgical History: Bowel Resection, Cardiac Valve Replacement Additional Past Surgical History / Comment(s): liver/rectal colon cancer,. COLONOSCOPY. colostomy reversal January 2022, removed section of liver in 2018 Past Anesthesia/Blood Transfusion Reactions: No Reported Reaction Past Psychological History: No Psychological Hx Reported Smoking Status: Never smoker Past Alcohol Use History: None Reported Past Drug Use History: None Reported - Past Family History Father Family Medical History: Cancer Mother Family Medical History: Osteoarthritis (OA) General Exam Limitations: no limitations Course Vital Signs 08/04/22 08/04/22 08/04/22 16:19 16:30 17:00 Temperature 99.4 F Pulse Rate 97 90 89 Respiratory 18 24 18 Rate Blood Pressure 118/87 118/87 115/82 O2 Sat by Pulse 98 95 95 Oximetry 08/04/22 08/04/22 08/04/22 17:30 18:00 18:30 Temperature Pulse Rate 94 105 H 102 H Respiratory 18 20 20 Rate Blood Pressure 121/84 123/85 114/86 O2 Sat by Pulse 95 96 97 Oximetry 08/04/22 19:00 Temperature Pulse Rate 106 H Respiratory 22 Rate Blood Pressure 121/84 O2 Sat by Pulse 98 Oximetry Medical Decision Making - Lab Data Result diagrams: 08/04/22 17:31 08/04/22 17:31 Lab Results 08/04/22 08/04/22 08/04/22 Range/Units 17:31 17:31 17:31 WBC 18.7 H (3.8-10.6) k/uL RBC 4.20 L (4.30-5.90) m/uL Hgb 9.8 L (13.0-17.5) gm/dL Hct 33.7 L (39.0-53.0) % MCV 80.3 (80.0-100.0) fL MCH 23.3 L (25.0-35.0) pg MCHC 29.1 L (31.0-37.0) g/dL RDW 20.7 H (11.5-15.5) % Plt Count 815 H (150-450) k/uL MPV 7.7 Neutrophils % 80 % Lymphocytes % 9 % Monocytes % 7 % Eosinophils % 1 % Basophils % 0 % Neutrophils # 14.9 H (1.3-7.7) k/uL Lymphocytes # 1.7 (1.0-4.8) k/uL Monocytes # 1.4 H (0-1.0) k/uL Eosinophils # 0.2 (0-0.7) k/uL Basophils # 0.1 (0-0.2) k/uL Hypochromasia Marked Poikilocytosis Slight Anisocytosis Moderate Microcytosis Slight PT 11.4 (9.0-12.0) sec INR 1.1 (<1.2) APTT 27.3 (22.0-30.0) sec Sodium 138 (137-145) mmol/L Potassium 4.5 (3.5-5.1) mmol/L Chloride 105 (98-107) mmol/L Carbon Dioxide 21 L (22-30) mmol/L Anion Gap 12 mmol/L BUN 17 (9-20) mg/dL Creatinine 0.87 (0.66-1.25) mg/dL Est GFR (CKD-EPI)AfAm >90 (>60 ml/min/1.73 sqM) Est GFR (CKD-EPI)NonAf >90 (>60 ml/min/1.73 sqM) Glucose 95 (74-99) mg/dL Plasma Lactic Acid Han (0.7-2.0) mmol/L Calcium 8.8 (8.4-10.2) mg/dL Magnesium 2.1 (1.6-2.3) mg/dL Total Bilirubin 0.5 (0.2-1.3) mg/dL AST 26 (17-59) U/L ALT 12 (4-49) U/L Alkaline Phosphatase 132 H (38-126) U/L Total Protein 5.8 L (6.3-8.2) g/dL Albumin 3.1 L (3.5-5.0) g/dL Lipase (23-300) U/L Stool Occult Blood (Negative) 08/04/22 08/04/22 08/04/22 Range/Units 17:31 17:31 18:10 WBC (3.8-10.6) k/uL RBC (4.30-5.90) m/uL Hgb (13.0-17.5) gm/dL Hct (39.0-53.0) % MCV (80.0-100.0) fL MCH (25.0-35.0) pg MCHC (31.0-37.0) g/dL RDW (11.5-15.5) % Plt Count (150-450) k/uL MPV Neutrophils % % Lymphocytes % % Monocytes % % Eosinophils % % Basophils % % Neutrophils # (1.3-7.7) k/uL Lymphocytes # (1.0-4.8) k/uL Monocytes # (0-1.0) k/uL Eosinophils # (0-0.7) k/uL Basophils # (0-0.2) k/uL Hypochromasia Poikilocytosis Anisocytosis Microcytosis PT (9.0-12.0) sec INR (<1.2) APTT (22.0-30.0) sec Sodium (137-145) mmol/L Potassium (3.5-5.1) mmol/L Chloride (98-107) mmol/L Carbon Dioxide (22-30) mmol/L Anion Gap mmol/L BUN (9-20) mg/dL Creatinine (0.66-1.25) mg/dL Est GFR (CKD-EPI)AfAm (>60 ml/min/1.73 sqM) Est GFR (CKD-EPI)NonAf (>60 ml/min/1.73 sqM) Glucose (74-99) mg/dL Plasma Lactic Acid Han 1.3 (0.7-2.0) mmol/L Calcium (8.4-10.2) mg/dL Magnesium (1.6-2.3) mg/dL Total Bilirubin (0.2-1.3) mg/dL AST (17-59) U/L ALT (4-49) U/L Alkaline Phosphatase (38-126) U/L Total Protein (6.3-8.2) g/dL Albumin (3.5-5.0) g/dL Lipase 46 (23-300) U/L Stool Occult Blood Positive (Negative) Disposition Clinical Impression: SIRS (systemic inflammatory response syndrome) Disposition: ADMITTED IP TO THIS [facility] Condition: Fair Referrals: Amaury Pulido MD [Primary Care Provider] - 1-2 days Decision Time: 21:03
[2022-08-04 17:46] LABS: Anisocytosis Moderate; Basophils # (A) 0.1 k/uL (0-0.2); Basophils % (A) 0 %; Eosinophils # (A) 0.2 k/uL (0-0.7); Eosinophils % (A) 1 %; HCT 33.7 % (39.0-53.0); HGB 9.8 gm/dL (13.0-17.5); Hypochromasia Marked; Lymphocytes # (A) 1.7 k/uL (1.0-4.8); Lymphocytes % (A) 9 %; MCH 23.3 pg (25.0-35.0); MCHC 29.1 g/dL (31.0-37.0); MCV 80.3 fL (80.0-100.0); Mean Platelet Volume 7.7; Microcytosis Slight; Monocytes # (A) 1.4 k/uL (0-1.0); Monocytes % (A) 7 %; Neutrophils # (A) 14.9 k/uL (1.3-7.7); Neutrophils % (A) 80 %; Platelet Count 815 k/uL (150-450); Poikilocytosis Slight; RDW 20.7 % (11.5-15.5); WBC 18.7 k/uL (3.8-10.6)
[2022-08-04 17:55] LABS: INR 1.1 (<1.2); Partial Thromboplastin Time 27.3 sec (22.0-30.0); Prothrombin Time 11.4 sec (9.0-12.0)
[2022-08-04 17:58] LABS: ALT 12 U/L (4-49); AST 26 U/L (17-59); African American GFR (CKD) >90 (>60 ml/min/1.73 sqM); Albumin 3.1 g/dL (3.5-5.0); Alkaline Phosphatase 132 U/L (38-126); Anion Gap 12 mmol/L; Blood Urea Nitrogen 17 mg/dL (9-20); Calcium 8.8 mg/dL (8.4-10.2); Carbon Dioxide 21 mmol/L (22-30); Chloride 105 mmol/L (98-107); Glucose 95 mg/dL (74-99); Magnesium 2.1 mg/dL (1.6-2.3); Non-African American GFR(CKD) >90 (>60 ml/min/1.73 sqM); Potassium 4.5 mmol/L (3.5-5.1); Sodium 138 mmol/L (137-145); Total Bilirubin 0.5 mg/dL (0.2-1.3); Total Protein 5.8 g/dL (6.3-8.2)
[2022-08-04] MEDS ORDERED: SODIUM CHLORIDE 0.9% 1,000 ML IV STA (19:01)
[2022-08-04] MEDS ORDERED: HYDROmorphone 1 MG/ML 1 ML SYRINGE IVP STA (19:10)
--- NOTE | 2022-08-04 20:03 | CT ---
EXAMINATION TYPE: CT abdomen pelvis w con DATE OF EXAM: 08/04/2022 COMPARISON: 07/13/2022 HISTORY: Severe abdominal pain, hx colon/liver ca. CT DLP: 704.7 mGycm Automated exposure control for dose reduction was used. CONTRAST: Performed with IV Contrast, patient injected with 100 mL of Isovue 300. Images obtained from the diaphragm to the floor the pelvis with the IV contrast. Lung bases are clear of consolidation. There is mild subsegmental atelectasis at the lung bases. Hear t size is normal. No pericardial effusion. There are numerous hypodensities throughout the liver that measure up to almost 3 cm. Gallbladder is intact. Spleen is absent. There is no pancreatic mass. There is no adrenal mass. Kidneys show satisfactory contrast opacification. No hydronephrosis. Ureter s are not dilated. No retroperitoneal adenopathy. There are surgical clips at the right colon. The bl adder distends smoothly. There is mild posterior wall thickening on the left side of the urinary blad jose without a discrete mass. There is irregular enlargement of the prostate with calcification. No in guinal hernia. No free fluid in the pelvis. No pelvic mass. No evidence of a bowel obstruction. No ascites. No sign of free air. There is previous surgery at the rectosigmoid colon. The lumbar vertebra show normal alignment. There is disc space narrowing at L3-4 and L5-S1 with spurr ing. No compression fracture. Bony pelvis is intact. The hip joints are intact. No focal bone destruc tion. IMPRESSION: Numerous hypodensities in the liver consistent with metastatic disease. No bowel obstruction. Previou s surgery. No significant change compared to old exam.
[2022-08-04] MEDS ORDERED: ACETAMINOPHEN TAB 325 MG TAB PO PRN (21:00)
[2022-08-04] MEDS ORDERED: NALOXONE 0.4 MG/ML 1 ML VIAL IV PRN (21:00)
[2022-08-04] MEDS ORDERED: PANTOPRAZOLE 40 MG/10 ML VIAL IVP STA (21:00)
[2022-08-04] MEDS: SODIUM CHLORIDE 0.9% 1,000 ML IV SCH (22:50)
--- NOTE | 2022-08-05 00:30 | P.HPIM ---
History of Present Illness H&P Date: 08/04/22 The patient is a 61-year-old male with a PMH of metastatic colon cancer (status post multiple rounds of chemotherapy, currently following with the Dr. Andrade), persistent abdominal pain, and intractable nausea and diarrhea who presents to the emergency room with complaints of abdominal pain. The patient reports that although he has been dealing with his persistent soft stools and abdominal pain over the past several months, that to have acutely worsened over the past 48 hours. He reports being unable to tolerate the pain at which point he decided to come to the emergency room. Upon arrival at the scene, the patient was noted to be in severe pain and was given 50 g of fentanyl by EMS. Of note, the patient was recently admitted to the hospital for similar complaints last month. The patient denied noticing blood in stools or black tarry stools. At time of interview, the patient reported that his pain was 4 out of 10 diffusely throughout the abdomen but no alleviating or exacerbating features. The patient denied a stenting fever, chills, chest pain, shortness of breath, vomiting. CT abdomen and pelvis in the emergency room revealed metastatic disease of the liver with no additional acute abnormalities. EKG reveals sinus rhythm with sinus arrhythmia at 84 bpm with a right bundle branch block. Review of systems: Pertinent positives and negatives as discussed in HPI, a complete review of systems was performed and all other systems are negative. Physical examination: General: non toxic, no distress, appears older than stated age, frail Derm: no unusual rashes/lesions, warm Head: atraumatic, normocephalic, symmetric Eyes: EOMI, no lid lag, anicteric sclera, pupils equal round reactive to light ENT: Nose and ears atraumatic Neck: No cervical lymphadenopathy, trachea midline, supple Mouth: no lip lesion, mucus membranes moist Cardiovascular: S1S2 reg, no murmur, positive dorsalis pedis pulse bilateral, no edema Lungs: CTA bilateral, no rhonchi, no rales, no accessory muscle use Abdominal: soft, diffuse mild tenderness to palpation, no guarding Ext: muscle strength 4 out of 5 in all 4 extremities grossly, no gross muscle atrophy, no contractures, Neuro: CN II-XI grossly intact, no gross focal neuro deficits Psych: Alert, oriented, appropriate affect Assessment/plan Abdominal pain, suspected secondary to metastatic disease burden -Pain control -Oncology consult -IV hydration Leukocytosis, likely due to acute stressor -No signs of active infection at this time -Monitor CBC for now DVT prophylaxis -Lovenox The patient is admitted with an anticipated less than 2 midnight stay for evaluation of abdominal pain CODE STATUS: No Code Discussed with: Patient Anticipated discharge date: in am Anticipated discharge place: Home Past Medical History Past Medical History: Cancer, GERD/Reflux, Prostate Disorder Additional Past Medical History / Comment(s): colon cancer-LAST CHEMO ON 07/14/22. GI BLEED MARCH 2020 possible lung Mets History of Any Multi-Drug Resistant Organisms: C-DIFF Date of last positivie culture/infection: 03/21/2022 MDRO Source:: stool Past Surgical History: Bowel Resection, Cardiac Valve Replacement Additional Past Surgical History / Comment(s): liver/rectal colon cancer,. COLONOSCOPY. colostomy reversal January 2022, removed section of liver in 2018 Past Anesthesia/Blood Transfusion Reactions: No Reported Reaction Past Psychological History: No Psychological Hx Reported Smoking Status: Never smoker Past Alcohol Use History: None Reported Past Drug Use History: None Reported - Past Family History Father Family Medical History: Cancer Mother Family Medical History: Osteoarthritis (OA) Medications and Allergies Home Medications Medication Instructions Recorded Confirmed Type HYDROcodone/APAP 5-325MG [[place] 1 tab PO Q6HR PRN 08/04/22 08/04/22 History 5-325] Megestrol Acetate 400 mg PO DAILY 08/04/22 08/04/22 History Sennosides [Senokot] 8.6 mg PO HS 08/04/22 08/04/22 History Allergies Allergy/AdvReac Type Severity Reaction Status Date / Time Sulfa (Sulfonamide Allergy Anaphylaxis Verified 08/04/22 20:54 Antibiotics) Physical Exam Vitals: Vital Signs Temp Pulse Pulse Resp BP BP Pulse Ox 08/04/22 22:45 98.5 F 88 17 119/79 99 08/04/22 21:26 92 20 102/74 97 08/04/22 19:00 106 H 22 121/84 98 08/04/22 18:30 102 H 20 114/86 97 08/04/22 18:00 105 H 20 123/85 96 08/04/22 17:30 94 18 121/84 95 08/04/22 17:00 89 18 115/82 95 08/04/22 16:30 90 24 118/87 95 08/04/22 16:19 99.4 F 97 18 118/87 98 Intake and Output 08/04/22 08/04/22 08/05/22 14:59 22:59 06:59 Other: Weight 58.967 kg Results CBC & Chem 7: 08/04/22 17:31 08/04/22 17:31 Labs: Abnormal Lab Results - Last 24 Hours (Table) 08/04/22 08/04/22 Range/Units 17:31 17:31 WBC 18.7 H (3.8-10.6) k/uL RBC 4.20 L (4.30-5.90) m/uL Hgb 9.8 L (13.0-17.5) gm/dL Hct 33.7 L (39.0-53.0) % MCH 23.3 L (25.0-35.0) pg MCHC 29.1 L (31.0-37.0) g/dL RDW 20.7 H (11.5-15.5) % Plt Count 815 H (150-450) k/uL Neutrophils # 14.9 H (1.3-7.7) k/uL Monocytes # 1.4 H (0-1.0) k/uL Carbon Dioxide 21 L (22-30) mmol/L Alkaline Phosphatase 132 H (38-126) U/L Total Protein 5.8 L (6.3-8.2) g/dL Albumin 3.1 L (3.5-5.0) g/dL Thrombosis Risk Factor Assmnt - Choose All That Apply Any of the Below Risk Factors Present?: Yes Each Factor Represents 1 point: Medical pt on bed rest Other Risk Factors: Yes Each Risk Factor Represents 2 Points: Age 61-74 years Other congenital or acquired thrombophilia - If yes, enter type in comment: No Thrombosis Risk Factor Assessment Total Risk Factor Score: 3 Thrombosis Risk Factor Assessment Level: Moderate Risk
--- NOTE | 2022-08-05 02:54 | P.PN ---
Progress Note - Text Progress Note Date: 08/04/22 Advanced Care Planning: Diagnoses: Metastatic colon cancer Discussion: Person(s) present and participating in discussion: Patient Summary: Discussed the patient's goals of care in great detail. The patient stated that he has not yet discussed his wishes and was to receiving CPR or life support with any of his family members. He stated that although he would likely to be a no code, that at the current time he would like to remain a full code and in the event of a deterioration in his health, that his daughter be contacted for any further medical decisions. He plans on filling out official healthcare proxy forms in the a.m. A total of 16 minutes of face to face time was spent discussing advanced care planning.
[2022-08-05] MEDS: HYDROmorphone 1 MG/ML 1 ML SYRINGE IVP PRN (04:25)
[2022-08-05] MEDS: ENOXAPARIN 40 MG/0.4 ML SYRINGE SQ SCH (08:28)
[2022-08-05] MEDS: SODIUM CHLORIDE 0.9% 1,000 ML IV SCH ×2 (08:28→16:31)
[2022-08-05 09:52] LABS: ALT 13 U/L (4-49); AST 21 U/L (17-59); African American GFR (CKD) >90 (>60 ml/min/1.73 sqM); Albumin 2.9 g/dL (3.5-5.0); Albumin/Globulin Ratio 1.1; Alkaline Phosphatase 122 U/L (38-126); Anion Gap 11 mmol/L; Blood Urea Nitrogen 12 mg/dL (9-20); Calcium 8.8 mg/dL (8.4-10.2); Carbon Dioxide 21 mmol/L (22-30); Chloride 105 mmol/L (98-107); Globulin 2.7 g/dL; Glucose 116 mg/dL (74-99); Non-African American GFR(CKD) >90 (>60 ml/min/1.73 sqM); Potassium 3.9 mmol/L (3.5-5.1); Sodium 137 mmol/L (137-145); Total Bilirubin 0.4 mg/dL (0.2-1.3); Total Protein 5.6 g/dL (6.3-8.2)
[2022-08-05 10:00] LABS: Anisocytosis Moderate; HCT 37.1 % (39.0-53.0); HGB 10.3 gm/dL (13.0-17.5); Hypochromasia Marked; MCHC 27.7 g/dL (31.0-37.0); MCV 83.3 fL (80.0-100.0); Mean Platelet Volume 7.9; Microcytosis Slight; Platelet Count 871 k/uL (150-450); Poikilocytosis Slight; RBC 4.46 m/uL (4.30-5.90); RDW 20.4 % (11.5-15.5); WBC 15.5 k/uL (3.8-10.6)
[2022-08-05 10:42] LABS: Band Neutrophils % 1 %; Eosinophils # (M) 0.47 k/uL (0-0.7); Lymphocytes # (M) 1.09 k/uL (1.0-4.8); Monocytes # (M) 1.71 k/uL (0-1.0); Neutrophils % (M) 78 %; Nucleated Red Blood Cells 0 /100 WBC (0-0); Total Cells Counted 100
[2022-08-05 10:43] LABS: Howell-Jolly Bodies Present; RBC Fragments Present; Target Cells Present
[2022-08-05] MEDS: LOPERAMIDE 2 MG CAP PO SCH ×5 (11:00→23:13)
--- NOTE | 2022-08-05 13:46 | P.CONS ---
History of Present Illness - Reason for Consult Consult date: 08/05/22 History of metastatic colon cancer - Chief Complaint Diarrhea - History of Present Illness Mr. Garrison is a 61-year-old gentleman with a past medical history significant for metastatic colon cancer with metastasis to the liver who last received irinotecan and bevacuzimab on 07/13/22 presents with approximately 4 weeks' worth of diarrhea. He is a significant increase in diarrhea over the past 48 hours in particular. Currently, he denies any abdominal pain, nausea, or vomiting. He denies any fevers, chills, night sweats, lymphadenopathy. He denies any melena, hematochezia, or prior blood per rectum currently. He noticed that anything he ate wouldn't result in watery bowel movement approximately 1 hour later. This has caused him to have significant fatigue. He was scheduled to receive t reatment on 07/27/2022, which he canceled due to persistent diarrhea. He notes he tried 1-2 doses of Imodium at home, which did not help. He has no sick contacts with similar presentation of diarrhea at this time. Given his progressive diarrhea, he presented to the ED for additional management and monitoring. In the ED, he is noted to have tachycardia with heart rates in the 100s, but was otherwise afebrile and hemodynamically stable. Labs revealed white blood cell count of 18.7 (ANC 14.9). Hemoglobin was 9.8, which is close to his baseline along with platelet count of 815. Metabolic profile revealed creatinine 0.8 (baseline 0.8-1). LFTs revealed no acute abnormalities compared to prior measurements. Clostridium difficile PCR was negative. CT abdomen/pelvis on 08/04/2022 revealed no acute changes from his prior staging imaging performed on 07/13/2022. There is no evidence of obstruction, ascites, or free air concerning for perforation. He was given 1 L bolus along with pantoprazole IV 1 and Dilaudid 1 mg IV. He is admitted to internal medicine for additional management and monitoring. Since admission, he's been started on maintenance IV fluids at 100 mL per hour. Oncologic history: 2012: Resected T1 lesion with recommended surveillance with colonoscopies. This was not followed up 06/19/2018: Initiated treatment with FOLFOX for 6 cycles with panitumumab starting with cycle 3 due to being K-kasia wild type 10/2018: Underwent liver and rectal resection with reversal of colostomy in January 2019, which was complicated by anastomotic leak 04/2020-05/2020: Completed Xeloda/radiation therapy for recurrence in the presacral and left obturator regions 11/22/20: Initiated the XELOX along with PEG tube abdomen for 3 cycles, which was complicated by bleeding and NSTEMI 07/11/21: Initiated irinotecan and panitumumab due to disease progression in the liver. Avastin started with cycle 4 instead of panitumumab due to KRAS mutation 01/22/2022: Had an ostomy reversal, which is subsequently complicated by C. difficile colitis 07/13/2022: Completed 7 cycles of irinotecan and avastin 07/19/2022: Seen in clinic with recommendation to hold Avastin due to abdominal pain Past Medical History Past Medical History: Cancer, GERD/Reflux, Prostate Disorder Additional Past Medical History / Comment(s): colon cancer-LAST CHEMO ON 07/14/22. GI BLEED MARCH 2020 possible lung Mets History of Any Multi-Drug Resistant Organisms: C-DIFF Year Discovered:: 03/21/2022 MDRO Source:: stool Past Surgical History: Bowel Resection, Cardiac Valve Replacement Additional Past Surgical History / Comment(s): liver/rectal colon cancer,. COLONOSCOPY. colostomy reversal January 2022, removed section of liver in 2018 Past Anesthesia/Blood Transfusion Reactions: No Reported Reaction Past Psychological History: No Psychological Hx Reported Smoking Status: Never smoker Past Alcohol Use History: None Reported Past Drug Use History: None Reported - Past Family History Father Family Medical History: Cancer Mother Family Medical History: Osteoarthritis (OA) Medications and Allergies Home Medications Medication Instructions Recorded Confirmed Type HYDROcodone/APAP 5-325MG [[place] 1 tab PO Q6HR PRN 08/04/22 08/04/22 History 5-325] Megestrol Acetate 400 mg PO DAILY 08/04/22 08/04/22 History Sennosides [Senokot] 8.6 mg PO HS 08/04/22 08/04/22 History Allergies Allergy/AdvReac Type Severity Reaction Status Date / Time Sulfa (Sulfonamide Allergy Anaphylaxis Verified 08/04/22 20:54 Antibiotics) Physical Exam Vitals: Vital Signs Temp Pulse Pulse Resp BP BP Pulse Ox 08/05/22 12:57 98.9 F 92 16 130/77 98 08/05/22 07:00 97.5 F L 80 18 145/84 98 08/05/22 02:06 98.6 F 86 18 128/79 99 08/04/22 22:45 98.5 F 88 17 119/79 99 08/04/22 21:26 92 20 102/74 97 08/04/22 19:00 106 H 22 121/84 98 08/04/22 18:30 102 H 20 114/86 97 08/04/22 18:00 105 H 20 123/85 96 08/04/22 17:30 94 18 121/84 95 08/04/22 17:00 89 18 115/82 95 08/04/22 16:30 90 24 118/87 95 08/04/22 16:19 99.4 F 97 18 118/87 98 Intake and Output 08/04/22 08/05/22 08/05/22 22:59 06:59 14:59 Intake Total 240 Output Total 400 100 Balance -400 140 Intake: Oral 240 Output: Urine 400 100 Other: Voiding Method Urinal # Bowel Movements 1 Weight 58.967 kg Fatigued appearing, no acute distress - Constitutional General appearance: cooperative, no acute distress - EENT Eyes: EOMI - Respiratory Respiratory: bilateral: CTA - Cardiovascular Rhythm: regular - Gastrointestinal General gastrointestinal: hyperactive bowel sounds, soft, no tenderness - Integumentary Integumentary: pale, no rash - Psychiatric Psychiatric: appropriate affect Results CBC & Chem 7: 08/05/22 08:58 08/05/22 08:58 Labs: Abnormal Lab Results - Last 24 Hours (Table) 08/04/22 08/04/22 08/05/22 Range/Units 17:31 17:31 08:58 WBC 18.7 H 15.5 H (3.8-10.6) k/uL RBC 4.20 L (4.30-5.90) m/uL Hgb 9.8 L 10.3 L (13.0-17.5) gm/dL Hct 33.7 L 37.1 L (39.0-53.0) % MCH 23.3 L 23.0 L (25.0-35.0) pg MCHC 29.1 L 27.7 L (31.0-37.0) g/dL RDW 20.7 H 20.4 H (11.5-15.5) % Plt Count 815 H 871 H (150-450) k/uL Neutrophils # 14.9 H (1.3-7.7) k/uL Neutrophils # (Manual) 12.20 H (1.3-7.7) k/uL Monocytes # 1.4 H (0-1.0) k/uL Monocytes # (Manual) 1.71 H (0-1.0) k/uL Carbon Dioxide 21 L (22-30) mmol/L Glucose (74-99) mg/dL Alkaline Phosphatase 132 H (38-126) U/L Total Protein 5.8 L (6.3-8.2) g/dL Albumin 3.1 L (3.5-5.0) g/dL 08/05/22 Range/Units 08:58 WBC (3.8-10.6) k/uL RBC (4.30-5.90) m/uL Hgb (13.0-17.5) gm/dL Hct (39.0-53.0) % MCH (25.0-35.0) pg MCHC (31.0-37.0) g/dL RDW (11.5-15.5) % Plt Count (150-450) k/uL Neutrophils # (1.3-7.7) k/uL Neutrophils # (Manual) (1.3-7.7) k/uL Monocytes # (0-1.0) k/uL Monocytes # (Manual) (0-1.0) k/uL Carbon Dioxide 21 L (22-30) mmol/L Glucose 116 H (74-99) mg/dL Alkaline Phosphatase (38-126) U/L Total Protein 5.6 L (6.3-8.2) g/dL Albumin 2.9 L (3.5-5.0) g/dL CT scan - abdomen: report reviewed, image reviewed Assessment and Plan Assessment: Mr. Garrison is a 61-year-old gentleman with a past medical history significant for metastatic colon cancer with metastasis to the liver last received treatment with irinotecan and Avastin on 07/13/2022 who prevents with acute worsening of diarrhea, which has been present over the past month. Clostridium difficile PCR was negative. He likely has chemotherapy-induced diarrhea secondary to irinotecan Plan: #Chemotherapy-induced diarrhea -Likely due to ininotecan given the duration of diarrhea and history inconsistent for acute gastroenteritis -We will schedule Imodium 2 mg by mouth every 4 hours for at least the next 24 hours in attempt to decrease the volume of diarrhea -If there is improvement in the diarrhea after 24 hours, this can be changed to when necessary instead of scheduled -Continue IV fluid hydration at this time -He may require dose reduction in irinotecan with future treatments
--- NOTE | 2022-08-05 17:58 | P.PN ---
Subjective Progress Note Date: 08/05/22 Hospital course: Patient is a very pleasant 61-year-old male with a past medical history of of metastatic colon cancer (status post multiple rounds of chemotherapy, currently following with the Dr. Andrade), persistent abdominal pain, and intractable nausea and diarrhea. He presented to the emergency room with complaints of abdominal pain and intractable diarrhea. Patient reports undergoing chemotherapy biweekly with last reported chemotherapy treatment being 07/27/22 dose to 08/10/22. Patient reports intractable diarrhea with intermittent diffuse abdominal pain/cramping resulting in significant fatigue. Patient states he attempted a few doses of Imodium at home and was unsuccessful so he came to the emergency department for further evaluation. Patient denied having any melena or hematochezia and denied having any nausea or vomiting. He underwent full evaluation in the emergency department. He was found to have leukocytosis with WBC count of 18.7, normocytic microchromic anemia with hemoglobin 9.8, and thrombocytosis with platelet count of 815. Occult stool was positive and C. diff negative. EKG was completed revealing sinus rhythm at 84 bpm with a right bundle branch block. CT abdomen and pelvis showing numerous hypodensities in the liver consistent with metastatic disease, no bowel obstruction and no significant changes compared to previous exam. Physical examination: Patient seen and fully evaluated at bedside this morning. Patient currently reports 4 episodes of diarrheal throughout the night. He currently states abdominal pain is controlled at the moment. He denies having any headache, lightheadedness, dizziness, chest pain, palpitations, shortness of breath, or any other complaints at this time. Patient tolerating oral intake and denies a ny episodes of nausea or vomiting. Vital signs unremarkable. General: non toxic, no distress, appears older than stated age, frail Derm: no unusual rashes/lesions, warm Head: atraumatic, normocephalic, symmetric Eyes: EOMI, no lid lag, anicteric sclera, pupils equal round reactive to light ENT: Nose and ears atraumatic Neck: No cervical lymphadenopathy, trachea midline, supple Mouth: no lip lesion, mucus membranes moist Cardiovascular: S1S2 reg, no murmur, positive dorsalis pedis pulse bilateral, no edema Lungs: CTA bilateral, no rhonchi, no rales, no accessory muscle use Abdominal: soft, diffuse mild tenderness to palpation, no guarding Ext: muscle strength 4 out of 5 in all 4 extremities grossly, no gross muscle atrophy, no contractures, Neuro: CN II-XI grossly intact, no gross focal neuro deficits Psych: Alert, oriented, appropriate affect Assessment and plan of care: Chemotherapy-induced diarrhea Abdominal pain, suspected secondary to metastatic disease burden -Pain control -Oncology following, appreciate further recommendations -Continue with IV fluid hydration Leukocytosis, likely due to acute stressor. Improving -No signs of active infection at this time -Monitor CBC for now Normocytic microchromic anemia -Hemoglobin stable at 9.8 at baseline level. -We will continue to monitor with repeat a.m. labs. Thrombocytosis, chronic -Chronic. We will continue to monitor with repeat a.m. labs. CODE STATUS: No Code DVT prophylaxis: Lovenox. Discussed with: Patient Anticipated discharge date: Clinical course to determine Anticipated discharge place: Home A total of 35 minutes was spent on the care of this complex patient more than 50% of the time was spent in counseling and care coordination. Objective - Vital Signs Vital signs: Vital Signs Temp 97.5 F L 08/05/22 07:00 Pulse 80 08/05/22 07:00 Resp 18 08/05/22 07:00 BP 145/84 08/05/22 07:00 Pulse Ox 98 08/05/22 07:00 FiO2 Intake & Output 08/04/22 08/05/22 08/05/22 18:59 06:59 18:59 Output Total 400 Balance -400 Weight 58.967 kg 58.967 kg Output: Urine 400 Other: Voiding Method Urinal - Labs CBC & Chem 7: 08/05/22 08:58 08/05/22 08:58 Labs: Abnormal Lab Results - Last 24 Hours (Table) 08/04/22 08/04/22 Range/Units 17:31 17:31 WBC 18.7 H (3.8-10.6) k/uL RBC 4.20 L (4.30-5.90) m/uL Hgb 9.8 L (13.0-17.5) gm/dL Hct 33.7 L (39.0-53.0) % MCH 23.3 L (25.0-35.0) pg MCHC 29.1 L (31.0-37.0) g/dL RDW 20.7 H (11.5-15.5) % Plt Count 815 H (150-450) k/uL Neutrophils # 14.9 H (1.3-7.7) k/uL Monocytes # 1.4 H (0-1.0) k/uL Carbon Dioxide 21 L (22-30) mmol/L Alkaline Phosphatase 132 H (38-126) U/L Total Protein 5.8 L (6.3-8.2) g/dL Albumin 3.1 L (3.5-5.0) g/dL
[2022-08-05] MEDS: PANTOPRAZOLE 40 MG/10 ML VIAL IVP SCH (19:36)
[2022-08-06] MEDS: SODIUM CHLORIDE 0.9% 1,000 ML IV SCH ×3 (03:10→20:04)
[2022-08-06] MEDS: LOPERAMIDE 2 MG CAP PO SCH ×5 (03:35→20:02)
[2022-08-06] MEDS: ENOXAPARIN 40 MG/0.4 ML SYRINGE SQ SCH (08:05)
[2022-08-06] MEDS: MEGESTROL 400 MG/10 ML CUP PO SCH (08:06)
[2022-08-06] MEDS: PANTOPRAZOLE 40 MG/10 ML VIAL IVP SCH ×2 (08:43→20:03)
[2022-08-06 08:57] LABS: Albumin 2.5 g/dL (3.8-4.9); Albumin/Globulin Ratio 1.09 (1.60-3.17); Anion Gap 8.8 mmol/L (10.00-18.00); BUN/Creat Ratio 14.25 Ratio (12.00-20.00); Blood Urea Nitrogen 11.4 mg/dL (9.0-27.0); Calcium 8.4 mg/dL (8.7-10.3); Carbon Dioxide 22.2 mmol/L (20.0-27.5); Globulin 2.3 g/dL (1.6-3.3); Magnesium 2.1 mg/dL (1.5-2.4); Non-African American GFR(CKD) 95.7 (60.0-200.0); Potassium 4.4 mmol/L (3.5-5.5); Total Bilirubin 0.2 mg/dL (0.30-1.20); Total Protein 4.8 g/dL (6.2-8.2)
[2022-08-06 09:24] LABS: Basophils # (A) 0.06 X 10*3/uL (0.00-0.10); Basophils % (A) 0.4 %; Eosinophils # (A) 0.35 X 10*3/uL (0.04-0.35); Eosinophils % (A) 2.3 %; HCT 29.3 % (39.6-50.0); HGB 8.7 g/dL (13.0-17.0); Immature Grans, Automated 0.5 %; Lymphocytes # (A) 1.32 X 10*3/uL (0.90-5.00); Lymphocytes % (A) 8.8 %; MCH 23.6 pg (27.0-32.0); MCHC 29.7 g/dL (32.0-37.0); MCV 79.4 fL (80.0-97.0); Mean Platelet Volume 9.7 fL (9.5-12.2); Monocytes # (A) 2.09 X 10*3/uL (0.20-1.00); NRBC Per 100 WBC 0 /100 WBCS (0.0-0.0); Neutrophils # (A) 11.07 X 10*3/uL (1.80-7.70); Platelet Count 803 X 10*3/uL (140-440); RBC 3.69 X 10*6/uL (4.40-5.60); RDW 23.3 % (11.5-14.5); WBC 14.96 X 10*3/uL (4.50-10.00)
[2022-08-06 09:25] LABS: Rouleaux PRESENT
--- NOTE | 2022-08-06 14:52 | P.PN ---
Subjective Progress Note Date: 08/06/22 Principal diagnosis: weakness and rectal pain In follow-up today patient is reporting diarrhea, he states it started about 24 hours after chemotherapy, medications were not working, he denied any mucus or blood in the stool. Occult was positive, c-diff neg. Patient reports no BM today, abdominal pain is less, his abdomen is less distended and tender. Objective - Vital Signs Vital signs: Vital Signs Temp 98.4 F 08/06/22 07:00 Pulse 77 08/06/22 07:00 Resp 17 08/06/22 02:16 BP 125/76 08/06/22 07:00 Pulse Ox 99 08/06/22 07:00 FiO2 Intake & Output 08/05/22 08/06/22 08/06/22 18:59 06:59 18:59 Intake Total 358 Output Total 375 550 Balance -17 -550 Intake: Oral 358 Output: Urine 375 550 Other: Voiding Method Urinal Urinal # Voids 1 # Bowel Movements 1 - Constitutional General appearance: Present: average body habitus, cooperative, no acute distress - EENT Eyes: Present: anicteric sclerae, EOMI ENT: Present: hearing grossly normal - Respiratory Details: respirations even and unlabored at rest - Peripheral edema leg Peripheral Edema: bilateral: None - Gastrointestinal General gastrointestinal: Present: normal bowel sounds, soft, ventral hernia. Absent: absent bowel sounds, decreased bowel sounds, distended, hepatomegaly, hyperactive bowel sounds, organomegaly, rigid, scaphoid, splenomegaly, tenderness, umbilical hernia - Neurologic Neurologic: Present: CNII-XII intact - Musculoskeletal Musculoskeletal: Present: generalized weakness, strength equal bilaterally - Psychiatric Psychiatric: Present: A&O x's 3, appropriate affect, intact judgment & insight - Labs CBC & Chem 7: 08/06/22 06:03 08/06/22 06:03 Labs: Abnormal Lab Results - Last 24 Hours (Table) 08/06/22 08/06/22 Range/Units 06:03 06:03 WBC 14.96 H (4.50-10.00) X 10*3/uL RBC 3.69 L (4.40-5.60) X 10*6/uL Hgb 8.7 L (13.0-17.0) g/dL Hct 29.3 L (39.6-50.0) % MCV 79.4 L (80.0-97.0) fL MCH 23.6 L (27.0-32.0) pg MCHC 29.7 L (32.0-37.0) g/dL RDW 23.3 H (11.5-14.5) % Plt Count 803 H (140-440) X 10*3/uL Plt Count Comment INCREASED A Immature Gran # 0.07 H (0.00-0.04) X 10*3/uL Neutrophils # 11.07 H (1.80-7.70) X 10*3/uL Monocytes # 2.09 H (0.20-1.00) X 10*3/uL Anion Gap 8.80 L (10.00-18.00) mmol/L Calcium 8.4 L (8.7-10.3) mg/dL Total Bilirubin 0.20 L (0.30-1.20) mg/dL Total Protein 4.8 L (6.2-8.2) g/dL Albumin 2.5 L (3.8-4.9) g/dL Albumin/Globulin Ratio 1.09 L (1.60-3.17) g/dL Microbiology - Last 24 Hours (Table) 08/05/22 00:31 Blood Culture - Preliminary Blood No Growth after 24 hours - Imaging and Cardiology CT scan - abdomen: report reviewed CT scan - pelvis: report reviewed Assessment and Plan Plan: Pt admitted with multiple complaints including weakness, intractable abdominal pain, pt reported diarrhea. Patient has done well in the last 48 hours with hydration and supportive medications. CT of the abdomen and pelvis report was reviewed, this was done with contrast and compared to the scan just a couple of weeks ago-CT CAP treatment follow-up study, stable liver disease, no new disease. Disease in the liver is reported as stable. plan at this time is to continue chemotherapy. Patient has had 3 hospitalizations, for several days, for out of control symptoms in the last 8 weeks. I think patient could benefit from some palliative or home care. He would benefit from help organizing his medications, continued education on proper usage of medications when he is experiencing side effects, using medications for side effects sooner than later. Dr. greer tests: I seen and examined patient, performed H&P, developed impression and plan of care. Discussed with dictator. Agree with documentation, dictated as a scribe
--- NOTE | 2022-08-06 14:56 | P.PN ---
Subjective Progress Note Date: 08/06/22 Hospital course: Patient is a very pleasant 61-year-old male with a past medical history of of metastatic colon cancer (status post multiple rounds of chemotherapy, currently following with the Dr. Andrade), persistent abdominal pain, and intractable nausea and diarrhea. He presented to the emergency room with complaints of abdominal pain and intractable diarrhea. Patient reports undergoing chemotherapy biweekly with last reported chemotherapy treatment being 07/27/22 dose to 08/10/22. Patient reports intractable diarrhea with intermittent diffuse abdominal pain/cramping resulting in significant fatigue. Patient states he attempted a few doses of Imodium at home and was unsuccessful so he came to the emergency department for further evaluation. Patient denied having any melena or hematochezia and denied having any nausea or vomiting. He underwent full evaluation in the emergency department. He was found to have leukocytosis with WBC count of 18.7, normocytic microchromic anemia with hemoglobin 9.8, and thrombocytosis with platelet count of 815. Occult stool was positive and C. diff negative. EKG was completed revealing sinus rhythm at 84 bpm with a right bundle branch block. CT abdomen and pelvis showing numerous hypodensities in the liver consistent with metastatic disease, no bowel obstruction and no significant changes compared to previous exam. Physical examination: Patient seen and fully evaluated at bedside this morning. He reports continued toleration of oral intake with no episodes of nausea or vomiting and having an improvement of diarrhea over the past 24 hours since being started on Imodium. Patient does report having increased weakness and has been using the bedpan instead of walking to restroom due to his feeling too weak to ambulate. Consult placed for PT at this time. He reports abdominal pain is controlled and denied having any headache, lightheadedness, dizziness, chest pain, palpitations, shortness of breath, or any other complaints at this time. Vital signs unremarkable. Running labs reviewed revealing improvement of leukocytosis with WBCs down to 14.96, stable hemoglobin 8.7, and continued thrombocytosis with platelet count of 803. Calcium low at 8.4 but corrected calcium is 9.6. General: non toxic, no distress, chronically ill appearing. Thin and frail. Derm: warm, dry Head: atraumatic, normocephalic, symmetric Eyes: EOMI, no lid lag, anicteric sclera Mouth: no lip lesion, mucus membranes moist Cardiovascular: S1S2 reg, no murmur, positive posterior tibial pulse bilateral, Lungs: CTA bilateral, no rhonchi, no rales , no accessory muscle use Abdominal: soft, nontender to palpation, no guarding, no appreciable organomegaly Ext: no gross muscle atrophy, no edema, no contractures Neuro: CN II-XI grossly intact, no focal neuro deficits Psych: Alert, oriented, appropriate affect Assessment and plan of care: Chemotherapy-induced diarrhea Abdominal pain, suspected secondary to metastatic disease burden -Pain control -Oncology following, appreciate further recommendations -Continue with IV fluid hydration Generalized weakness -Patient reports feeling physically weak and shaky upon standing. -Consult placed to physical therapy. Leukocytosis, likely due to acute stressor. Improving -No signs of active infection at this time -Monitor CBC for now Normocytic microchromic anemia -Hemoglobin stable at 8.7. -We will continue to monitor with repeat a.m. labs. Thrombocytosis, chronic -Chronic. We will continue to monitor with repeat a.m. labs. CODE STATUS: No Code DVT prophylaxis: Lovenox. Discussed with: Patient Anticipated discharge date: Clinical course to determine, likely within the next 24-[address]: Home A total of 33 minutes was spent on the care of this complex patient more than 50% of the time was spent in counseling and care coordination. Objective - Vital Signs Vital signs: Vital Signs Temp 98.4 F 08/06/22 07:00 Pulse 77 08/06/22 07:00 Resp 17 08/06/22 02:16 BP 125/76 08/06/22 07:00 Pulse Ox 99 08/06/22 07:00 FiO2 Intake & Output 08/05/22 08/06/22 08/06/22 18:59 06:59 18:59 Intake Total 358 Output Total 375 550 Balance -17 -550 Intake: Oral 358 Output: Urine 375 550 Other: Voiding Method Urinal Urinal # Voids 1 # Bowel Movements 1 - Labs CBC & Chem 7: 08/06/22 06:03 08/06/22 06:03 Labs: Abnormal Lab Results - Last 24 Hours (Table) 08/05/22 08/06/22 08/06/22 Range/Units 08:58 06:03 06:03 WBC 14.96 H (4.50-10.00) X 10*3/uL RBC 3.69 L (4.40-5.60) X 10*6/uL Hgb 8.7 L (13.0-17.0) g/dL Hct 29.3 L (39.6-50.0) % MCV 79.4 L (80.0-97.0) fL MCH 23.6 L (27.0-32.0) pg MCHC 29.7 L (32.0-37.0) g/dL RDW 23.3 H (11.5-14.5) % Plt Count 803 H (140-440) X 10*3/uL Plt Count Comment INCREASED A Immature Gran # 0.07 H (0.00-0.04) X 10*3/uL Neutrophils # 11.07 H (1.80-7.70) X 10*3/uL Neutrophils # (Manual) 12.20 H (1.3-7.7) k/uL Monocytes # 2.09 H (0.20-1.00) X 10*3/uL Monocytes # (Manual) 1.71 H (0-1.0) k/uL Anion Gap 8.80 L (10.00-18.00) mmol/L Calcium 8.4 L (8.7-10.3) mg/dL Total Bilirubin 0.20 L (0.30-1.20) mg/dL Total Protein 4.8 L (6.2-8.2) g/dL Albumin 2.5 L (3.8-4.9) g/dL Albumin/Globulin Ratio 1.09 L (1.60-3.17) g/dL Microbiology - Last 24 Hours (Table) 08/05/22 00:31 Blood Culture - Preliminary Blood No Growth after 24 hours
[2022-08-06] MEDS ORDERED: HYDROcodone/APAP 5-325MG 1 EACH TAB PO PRN (14:57)
[2022-08-06] MEDS ORDERED: HYDROcodone/APAP 10-325MG 1 EACH TAB PO PRN (14:59)
[2022-08-06 15:33] VITALS: BMI 19.8
[2022-08-06] MEDS: HYDROmorphone 1 MG/ML 1 ML SYRINGE IVP PRN (18:32)
[2022-08-07] MEDS: LOPERAMIDE 2 MG CAP PO SCH ×7 (02:18→23:31)
[2022-08-07] MEDS: ENOXAPARIN 40 MG/0.4 ML SYRINGE SQ SCH (09:29)
[2022-08-07] MEDS: PANTOPRAZOLE 40 MG/10 ML VIAL IVP SCH ×2 (09:29→19:25)
[2022-08-07] MEDS: MEGESTROL 400 MG/10 ML CUP PO SCH (09:30)
[2022-08-07] MEDS: SODIUM CHLORIDE 0.9% 1,000 ML IV SCH ×2 (09:30→15:44)
--- NOTE | 2022-08-07 14:05 | P.PN ---
Subjective Progress Note Date: 08/07/22 Hospital course: Patient is a very pleasant 61-year-old male with a past medical history of of metastatic colon cancer (status post multiple rounds of chemotherapy, currently following with the Dr. Andrade), persistent abdominal pain, and intractable nausea and diarrhea. He presented to the emergency room with complaints of abdominal pain and intractable diarrhea. Patient reports undergoing chemotherapy biweekly with last reported chemotherapy treatment being 07/27/22 dose to 08/10/22. Patient reports intractable diarrhea with intermittent diffuse abdominal pain/cramping resulting in significant fatigue. Patient states he attempted a few doses of Imodium at home and was unsuccessful so he came to the emergency department for further evaluation. Patient denied having any melena or hematochezia and denied having any nausea or vomiting. He underwent full evaluation in the emergency department. He was found to have leukocytosis with WBC count of 18.7, normocytic microchromic anemia with hemoglobin 9.8, and thrombocytosis with platelet count of 815. Occult stool was positive and C. diff negative. EKG was completed revealing sinus rhythm at 84 bpm with a right bundle branch block. CT abdomen and pelvis showing numerous hypodensities in the liver consistent with metastatic disease, no bowel obstruction and no significant changes compared to previous exam. Physical examination: Patient seen and fully evaluated at bedside this morning. He reports continued toleration of oral intake but reports return of frequent and uncontrolled diarrhea. Patient states he had some any episodes he has actually been incontinent of these.Patient was again started on Imodium. He was also evaluated by physical therapy and they are recommending rehab upon discharge. Arrangements have been made by case management for patient to go to [facility]. Patient does continue to report abdominal pain is controlled and denied having any headache, lightheadedness, dizziness, chest pain, palpitations, shortness of breath, or any other complaints at this time. Vital signs unremarkable General: non toxic, no distress, chronically ill appearing. Thin and frail. Derm: warm, dry Head: atraumatic, normocephalic, symmetric Eyes: EOMI, no lid lag, anicteric sclera Mouth: no lip lesion, mucus membranes moist Cardiovascular: S1S2 reg, no murmur, positive posterior tibial pulse bilateral, Lungs: CTA bilateral, no rhonchi, no rales , no accessory muscle use Abdominal: soft, nontender to palpation, no guarding, no appreciable organomegaly Ext: no gross muscle atrophy, no edema, no contractures Neuro: CN II-XI grossly intact, no focal neuro deficits Psych: Alert, oriented, appropriate affect Assessment and plan of care: Chemotherapy-induced diarrhea Abdominal pain, suspected secondary to metastatic disease burden -Pain control -Oncology following, appreciate further recommendations -Continue with IV fluid hydration Generalized weakness -Patient reports feeling physically weak and shaky upon standing. -Consult placed to physical therapy, recommending placement in a custodial facility upon discharge for rehab. Leukocytosis, likely due to acute stressor. Improving -No signs of active infection at this time -Monitor CBC for now Normocytic microchromic anemia -Hemoglobin stable at 8.7. -We will continue to monitor with repeat a.m. labs. Thrombocytosis, chronic -Chronic. We will continue to monitor with repeat a.m. labs. CODE STATUS: No Code DVT prophylaxis: Lovenox. Discussed with: Patient Anticipated discharge date: Clinical course to determine, likely within the next 24-[address]: [facility] A total of 31 minutes was spent on the care of this complex patient more than 50% of the time was spent in counseling and care coordination. Objective - Vital Signs Vital signs: Vital Signs Temp 99.0 F 08/07/22 07:08 Pulse 89 08/07/22 07:08 Resp 16 08/07/22 07:08 BP 109/74 08/07/22 07:08 Pulse Ox 98 08/07/22 07:08 FiO2 Intake & Output 08/06/22 08/07/22 08/07/22 18:59 06:59 18:59 Intake Total 360 Output Total 850 275 Balance -490 -275 Weight 58.967 kg Intake: Oral 360 Output: Urine 850 275 Other: # Voids 3 # Bowel Movements 1 1 - Labs CBC & Chem 7: 08/06/22 06:03 08/06/22 06:03 Labs: Abnormal Lab Results - Last 24 Hours (Table) 08/06/22 Range/Units 06:03 WBC 14.96 H (4.50-10.00) X 10*3/uL RBC 3.69 L (4.40-5.60) X 10*6/uL Hgb 8.7 L (13.0-17.0) g/dL Hct 29.3 L (39.6-50.0) % MCV 79.4 L (80.0-97.0) fL MCH 23.6 L (27.0-32.0) pg MCHC 29.7 L (32.0-37.0) g/dL RDW 23.3 H (11.5-14.5) % Plt Count 803 H (140-440) X 10*3/uL Plt Count Comment INCREASED A Immature Gran # 0.07 H (0.00-0.04) X 10*3/uL Neutrophils # 11.07 H (1.80-7.70) X 10*3/uL Monocytes # 2.09 H (0.20-1.00) X 10*3/uL Microbiology - Last 24 Hours (Table) 08/05/22 00:31 Blood Culture - Preliminary Blood No Growth after 48 hours
--- NOTE | 2022-08-07 17:36 | P.PN ---
Subjective Progress Note Date: 08/07/22 Principal diagnosis: weakness and rectal pain In follow-up today patient reports diarrhea has recurred, he is taking antidiarrheal medicine, no fever, abdominal pain or cramping. Objective - Vital Signs Vital signs: Vital Signs Temp 97.9 F 08/07/22 13:57 Pulse 100 08/07/22 13:57 Resp 18 08/07/22 13:57 BP 119/79 08/07/22 13:57 Pulse Ox 98 08/07/22 13:57 FiO2 Intake & Output 08/06/22 08/07/22 08/07/22 18:59 06:59 18:59 Intake Total 360 240 Output Total 850 275 650 Balance -490 -275 -410 Weight 58.967 kg Intake: Oral 360 240 Output: Urine 850 275 650 Other: # Voids 3 # Bowel Movements 1 1 - Constitutional General appearance: Present: average body habitus, cooperative, no acute distress - EENT Eyes: Present: anicteric sclerae, EOMI ENT: Present: hearing grossly normal - Respiratory Respiratory: bilateral: CTA - Cardiovascular Rhythm: regular Heart sounds: normal: S1, S2 Abnormal Heart Sounds: Absent: systolic murmur, diastolic murmur, rub, S3 Gallop, S4 Gallop, click, other - Peripheral edema leg Peripheral Edema: bilateral: None - Gastrointestinal General gastrointestinal: Present: normal bowel sounds, soft, ventral hernia. Absent: absent bowel sounds, decreased bowel sounds, distended, hepatomegaly, hyperactive bowel sounds, organomegaly, rigid, scaphoid, splenomegaly, tende rness, umbilical hernia - Neurologic Neurologic: Present: CNII-XII intact - Musculoskeletal Musculoskeletal: Present: generalized weakness - Psychiatric Psychiatric: Present: A&O x's 3, appropriate affect, intact judgment & insight - Labs CBC & Chem 7: 08/06/22 06:03 08/06/22 06:03 Labs: Microbiology - Last 24 Hours (Table) 08/05/22 00:31 Blood Culture - Preliminary Blood No Growth after 48 hours Assessment and Plan Plan: Pt admitted with multiple complaints including weakness, intractable abdominal pain, pt reported diarrhea. Patient has done well in the last 48 hours with hydration and supportive medications. CT of the abdomen and pelvis report was reviewed, this was done with contrast and compared to the scan just a couple of weeks ago-CT CAP t reatment follow-up study, stable liver disease, no new disease. Plan at this time is to continue chemotherapy. Patient has had 3 hospitalizations, for several days, for out of control symptoms in the last 8 weeks. I think patient could benefit from some palliative or home care. He would benefit from help organizing his medications, continued education on proper usage of medications when he is experiencing side effects, using medications for side effects sooner than later. Patient reports plan for rehabilitation at [facility]. Agree with rehabilitation. Treatment will be on hold until patient is discharged from rehabilitation. Will plan for a follow-up appointment with treating Oncologist in 3 weeks so patient can be assessed prior to resuming any cancer treatment. This was discussed with [employer]. Did discuss case with Nursing. Have asked for a stool specimen collection and for RN to assess. Send for additional testing if suspicious.
[2022-08-07] MEDS: HYDROmorphone 1 MG/ML 1 ML SYRINGE IVP PRN (19:25)
[2022-08-08] MEDS: SODIUM CHLORIDE 0.9% 1,000 ML IV SCH (03:49)
[2022-08-08] MEDS: LOPERAMIDE 2 MG CAP PO SCH ×3 (03:49→14:13)
[2022-08-08] MEDS: ENOXAPARIN 40 MG/0.4 ML SYRINGE SQ SCH (07:55)
[2022-08-08] MEDS: MEGESTROL 400 MG/10 ML CUP PO SCH (07:55)
[2022-08-08] MEDS: PANTOPRAZOLE 40 MG/10 ML VIAL IVP SCH (07:55)
[2022-08-08 08:57] LABS: HCT 26.6 % (39.6-50.0); MCH 23.3 pg (27.0-32.0); MCHC 30.1 g/dL (32.0-37.0); MCV 77.3 fL (80.0-97.0); Mean Platelet Volume 9.9 fL (9.5-12.2); NRBC Per 100 WBC 0 /100 WBCS (0.0-0.0); Platelet Count 743 X 10*3/uL (140-440); RBC 3.44 X 10*6/uL (4.40-5.60); RDW 22.9 % (11.5-14.5); WBC 15.58 X 10*3/uL (4.50-10.00)
[2022-08-08 09:14] LABS: Magnesium 1.9 mg/dL (1.5-2.4)
[2022-08-08 09:20] LABS: African American GFR (CKD) 93.1 (60.0-200.0); Albumin 2.5 g/dL (3.8-4.9); Albumin/Globulin Ratio 1.14 (1.60-3.17); Anion Gap 9.5 mmol/L (10.00-18.00); BUN/Creat Ratio 13.1 Ratio (12.00-20.00); Blood Urea Nitrogen 13.1 mg/dL (9.0-27.0); Calcium 8.2 mg/dL (8.7-10.3); Carbon Dioxide 20.5 mmol/L (20.0-27.5); Globulin 2.2 g/dL (1.6-3.3); Non-African American GFR(CKD) 80.3 (60.0-200.0); Potassium 4.1 mmol/L (3.5-5.5); Total Bilirubin 0.4 mg/dL (0.30-1.20); Total Protein 4.7 g/dL (6.2-8.2)
[2022-08-08] MEDS: HYDROmorphone 1 MG/ML 1 ML SYRINGE IVP PRN (09:48)
[2022-08-08 13:30] VITALS: BP 107/69; PULSE 101; RESP 14; TEMP 99.4
--- NOTE | 2022-08-08 13:55 | P.DS ---
Providers Date of admission: 08/05/22 17:59 Expected date of discharge: 08/08/22 Attending physician: Omid Flores MD Consults: 08/05/22 00:29 Consult Physician Urgent Consulting Provider: Francis Andrade Consult Reason/Comments: metastatic colon ca Do you want consulting provider notified?: Yes Primary care physician: Amaury Pulido MD Hospital Course: Chemotherapy-induced diarrhea Abdominal pain, suspected secondary to metastatic disease burden Generalized weakness Leukocytosis, likely due to acute stressor. Improving Normocytic microchromic anemia -Hemoglobin stable at 8.7. Thrombocytosis, chronic Patient is a very pleasant 61-year-old male with a past medical history of of metastatic colon cancer (status post multiple rounds of chemotherapy, currently following with the Dr. Andrade), persistent abdominal pain, and intractable nausea and diarrhea. He presented to the emergency room with complaints of abdominal pain and intractable diarrhea. He underwent full evaluation in the emergency department. He was found to have leukocytosis with WBC count of 18.7, normocytic microchromic anemia with hemoglobin 9.8, and thrombocytosis with platelet count of 815. Occult stool was positive and C. diff negative. EKG was completed revealing sinus rhythm at 84 bpm with a right bundle branch block. CT abdomen and pelvis showing numerous hypodensities in the liver consistent with metastatic disease, no bowel obstruction and no significant changes compared to previous exam. Patient was tolerating PO intake by time of dc, however, continued to have ongoing loose stools. PT evaluated patient and recommended rehab on discharge. Pt d/c'd to [facility], where he will work with PT. Chemotherapy will be on hold until rehab stay is completed I spent 34 minutes coordinating this complex discharge, discharge date 08/08. Gen: awake, alert HEENT: normocephalic, atraumatic, good hearing acuity, moist mucous membranes Resp: good air exchange, breathing comfortably with no accessory muscle use CVS: good distal perfusion x 4, GI: soft, NTTP, ND : no SPT, no CVAT, dias catheter not present MSK: no pitting edema, no clubbing Neuro: non-focal, moving all extremities Psych: cooperative, euthymic mood Patient Condition at Discharge: Fair Plan - Discharge Summary Discharge Rx Participant: No New Discharge Prescriptions: New Loperamide [Imodium] 2 mg PO Q4HR #30 cap Pantoprazole Sodium 20 mg PO BID #60 tab Acetaminophen Tab [Tylenol] 650 mg PO Q6HR PRN tab PRN Reason: Mild Pain Or Fever > 100.5 Continue Sennosides [Senokot] 8.6 mg PO HS Megestrol Acetate 400 mg PO DAILY HYDROcodone/APAP 5-325MG [[place] 5-325] 1 tab PO Q6HR PRN #12 tab PRN Reason: Pain Discharge Medication List Megestrol Acetate 400 mg PO DAILY 08/04/22 [History] Sennosides [Senokot] 8.6 mg PO HS 08/04/22 [History] Acetaminophen Tab [Tylenol] 650 mg PO Q6HR PRN tab 08/08/22 [Rx] HYDROcodone/APAP 5-325MG [[place] 5-325] 1 tab PO Q6HR PRN #12 tab 08/08/22 [Rx] Loperamide [Imodium] 2 mg PO Q4HR #30 cap 08/08/22 [Rx] Pantoprazole Sodium 20 mg PO BID #60 tab 08/08/22 [Rx] Follow up Appointment(s)/Referral(s): Francis Andrade MD [STAFF PHYSICIAN] - 08/30/22 11:15 am Amaury Pulido MD [Primary Care Provider] - 1-2 days Discharge Disposition: TRANSFER TO SNF/ECF
== END 2022-08-08 15:45 | DRG 394 ==
LOC: EC 16:13 → 6NMEDSUR 21:00 → OBSVTOIN 08-05 17:59
PROVIDERS: ADMIT Internal Medicine; ATTEND Internal Medicine
DX: K52.1 Toxic gastroenteritis and colitis (principal); C18.9 Malignant neoplasm of colon, unspecified; C78.7 Secondary malignant neoplasm of liver and intrahepatic bile duct; C34.90 Malignant neoplasm of unspecified part of unspecified bronchus or lung; T45.1X5A Adverse effect of antineoplastic and immunosuppressive drugs, initial encounter; G89.3 Neoplasm related pain (acute) (chronic); D64.9 Anemia, unspecified; D72.829 Elevated white blood cell count, unspecified; D75.839 Thrombocytosis, unspecified; K21.9 Gastro-esophageal reflux disease without esophagitis; I25.2 Old myocardial infarction; I45.10 Unspecified right bundle-branch block; Z71.3 Dietary counseling and surveillance; Z80.9 Family history of malignant neoplasm, unspecified; Z66 Do not resuscitate; Z85.038 Personal history of other malignant neoplasm of large intestine; Z85.118 Personal history of other malignant neoplasm of bronchus and lung; Z95.2 Presence of prosthetic heart valve; Z28.311 Partially vaccinated for COVID-19; Z79.899 Other long term (current) drug therapy; Z86.19 Personal history of other infectious and parasitic diseases
CPT/HCPCS: 36415; 74177; 80053; 82272; 83605; 83690; 83735; 85025; 85027; 85610; 85730; 87040; 87045; 87046; 87324; 93005; 96361; 96374; 99285

== ENCOUNTER 2022-08-14 16:30 | Inpatient (IN) | payer MEDICARE, OTHER ==
[2022-08-14] MEDS ORDERED: PANTOPRAZOLE 40 MG/10 ML VIAL IVP STA (16:40)
[2022-08-14] MEDS ORDERED: ONDANSETRON 4 MG/2 ML VIAL IVP STA (16:40)
[2022-08-14] MEDS ORDERED: SODIUM CHLORIDE 0.9% 1,000 ML IV STA (16:40)
--- NOTE | 2022-08-14 16:46 | ED ---
General Adult HPI - General Stated complaint: abnormal labs Time Seen by Provider: 08/14/22 16:30 Source: patient, RN notes reviewed, old records reviewed - History of Present Illness Initial comments: This is a 61-year-old male who has a history of colon cancer and had surgery back in 2018. Patient states his last chemo treatment about 2 weeks ago. Patient states she's been having diarrhea and lower abdominal pain for about a month. She didn't states the pain is in the lower quadrants more on the right than the left. Patient denies any fever chills. Patient states he does get nauseated but doesn't vomit. Patient denies any chest pain or difficulty breathing. Patient denies any back pain. Patient denies dysuria hematuria urinary frequency. Patient does have a history of C. diff. - Related Data Home Medications Medication Instructions Recorded Confirmed Megestrol Acetate 400 mg PO DAILY 08/04/22 08/14/22 Sennosides [Senokot] 8.6 mg PO HS 08/04/22 08/14/22 HYDROcodone/APAP 10-325MG [[place] 1 tab PO Q6H PRN 08/14/22 08/14/22 10-325] Mirtazapine 7.5 mg PO DAILY 08/14/22 08/14/22 Triad 1 applic TOPICAL BID 08/14/22 08/14/22 Previous Rx's Medication Instructions Recorded Acetaminophen Tab [Tylenol] 650 mg PO Q6HR PRN tab 08/08/22 Loperamide [Imodium] 2 mg PO Q4HR #30 cap 08/08/22 Pantoprazole Sodium 20 mg PO BID #60 tab 08/08/22 Allergies Allergy/AdvReac Type Severity Reaction Status Date / Time Sulfa (Sulfonamide Allergy Anaphylaxis Verified 08/14/22 16:43 Antibiotics) Review of Systems ROS Statement: Those systems with pertinent positive or pertinent negative responses have been documented in the HPI. ROS Other: All systems not noted in ROS Statement are negative. Past Medical History Past Medical History: Cancer, GERD/Reflux, Prostate Disorder Additional Past Medical History / Comment(s): colon cancer-LAST CHEMO ON 07/14/22. GI BLEED MARCH 2020 possible lung Mets History of Any Multi-Drug Resistant Organisms: C-DIFF Date of last positivie culture/infection: 03/21/2022 MDRO Source:: stool Past Surgical History: Bowel Resection, Cardiac Valve Replacement Additional Past Surgical History / Comment(s): liver/rectal colon cancer,. COLONOSCOPY. colostomy reversal January 2022, removed section of liver in 2019 Past Anesthesia/Blood Transfusion Reactions: No Reported Reaction Past Psychological History: No Psychological Hx Reported Smoking Status: Never smoker Past Alcohol Use History: None Reported Past Drug Use History: None Reported - Past Family History Father Family Medical History: Cancer Mother Family Medical History: Osteoarthritis (OA) General Exam - General Exam Comments Initial Comments: GENERAL: Patient is well-developed and well-nourished. Patient is nontoxic and well- hydrated and is in mild distress. Patient has had continuous hiccups ENT: Neck is soft and supple. No significant lymphadenopathy is noted. Oropharynx is clear. Moist mucous membranes. Neck has full range of motion without eliciting any pain. EYES: The sclera were anicteric and conjunctiva were pink and moist. Extraocular movements were intact and pupils were equal round and reactive to light. Eyelids were unremarkable. PULMONARY: Unlabored respirations. Good breath sounds bilaterally. No audible rales rhonchi or wheezing was noted. CARDIOVASCULAR: There is a regular rate and rhythm without any murmurs gallops or rubs. ABDOMEN: Patient is tender in the right lower quadrant and left lower quadrant. There is no rebound. SKIN: Skin is clear with no lesions or rashes and otherwise unremarkable. NEUROLOGIC: Patient is alert and oriented x3. Cranial nerves II through XII are grossly intact. Motor and sensory are also intact. Normal speech, volume and content. Symmetrical smile. MUSCULOSKELETAL: Normal extremities with adequate strength and full range of motion. LYMPHATICS: No significant lymphadenopathy is noted PSYCHIATRIC: Normal psychiatric evaluation. Course Vital Signs 08/14/22 08/14/22 16:32 17:10 Temperature 99.9 F H Pulse Rate 104 H 98 Respiratory 18 18 Rate Blood Pressure 130/111 122/89 O2 Sat by Pulse 99 98 Oximetry Medical Decision Making - Medical Decision Making CT of the abdomen and pelvis shows a perforated rectum per the radiologist. I started the patient Gerry and Natividad. I spoke with Dr. Vail he wanted the patient admitted Dr. Tucker with consult to the hospitalist. He was aware of the perforated bowel and didn't think it was requiring surgery at this time. I admitted the patient and I wrote admitting orders I spoke with Dr. Andrade and I spoke with Dr. Grier. - Lab Data Result diagrams: 08/14/22 16:56 08/14/22 17:34 Lab Results 08/14/22 08/14/22 08/14/22 Range/Units 16:56 16:56 17:03 WBC 22.2 H (3.8-10.6) k/uL RBC 3.71 L (4.30-5.90) m/uL Hgb 8.6 L D (13.0-17.5) gm/dL Hct 30.2 L (39.0-53.0) % MCV 81.5 (80.0-100.0) fL MCH 23.3 L (25.0-35.0) pg MCHC 28.6 L (31.0-37.0) g/dL RDW 19.4 H (11.5-15.5) % Plt Count 827 H (150-450) k/uL MPV 7.9 Neutrophils % 83 % Lymphocytes % 6 % Monocytes % 7 % Eosinophils % 2 % Basophils % 0 % Neutrophils # 18.5 H (1.3-7.7) k/uL Lymphocytes # 1.3 (1.0-4.8) k/uL Monocytes # 1.6 H (0-1.0) k/uL Eosinophils # 0.4 (0-0.7) k/uL Basophils # 0.1 (0-0.2) k/uL Hypochromasia Marked Poikilocytosis Slight Anisocytosis Slight Microcytosis Slight Sodium (137-145) mmol/L Potassium (3.5-5.1) mmol/L Chloride (98-107) mmol/L Carbon Dioxide (22-30) mmol/L Anion Gap mmol/L BUN (9-20) mg/dL Creatinine (0.66-1.25) mg/dL Est GFR (CKD-EPI)AfAm (>60 ml/min/1.73 sqM) Est GFR (CKD-EPI)NonAf (>60 ml/min/1.73 sqM) Glucose (74-99) mg/dL Plasma Lactic Acid Han 1.6 (0.7-2.0) mmol/L Calcium (8.4-10.2) mg/dL Magnesium (1.6-2.3) mg/dL Total Bilirubin (0.2-1.3) mg/dL AST (17-59) U/L ALT (4-49) U/L Alkaline Phosphatase (38-126) U/L Total Protein (6.3-8.2) g/dL Albumin (3.5-5.0) g/dL Amylase (30-110) U/L Lipase (23-300) U/L Urine Color Urine Appearance (Clear) Urine pH (5.0-8.0) Ur Specific [place] (1.001-1.035) Urine Protein (Negative) Urine Glucose (UA) (Negative) Urine Ketones (Negative) Urine Blood (Negative) Urine Nitrite (Negative) Urine Bilirubin (Negative) Urine Urobilinogen (<2.0) mg/dL Ur Leukocyte Esterase (Negative) Urine RBC (0-5) /hpf Urine WBC (0-5) /hpf Ur Squamous [place]ith Cells (0-4) /hpf Urine Bacteria (None) /hpf Urine Mucus (None) /hpf C. difficile (EIA) Intrp Negative (Negative) 08/14/22 08/14/22 Range/Units 17:34 18:35 WBC (3.8-10.6) k/uL RBC (4.30-5.90) m/uL Hgb (13.0-17.5) gm/dL Hct (39.0-53.0) % MCV (80.0-100.0) fL MCH (25.0-35.0) pg MCHC (31.0-37.0) g/dL RDW (11.5-15.5) % Plt Count (150-450) k/uL MPV Neutrophils % % Lymphocytes % % Monocytes % % Eosinophils % % Basophils % % Neutrophils # (1.3-7.7) k/uL Lymphocytes # (1.0-4.8) k/uL Monocytes # (0-1.0) k/uL Eosinophils # (0-0.7) k/uL Basophils # (0-0.2) k/uL Hypochromasia Poikilocytosis Anisocytosis Microcytosis Sodium 137 (137-145) mmol/L Potassium 4.9 (3.5-5.1) mmol/L Chloride 107 (98-107) mmol/L Carbon Dioxide 14 L (22-30) mmol/L Anion Gap 16 mmol/L BUN 64 H (9-20) mg/dL Creatinine 6.37 H (0.66-1.25) mg/dL Est GFR (CKD-EPI)AfAm 10 (>60 ml/min/1.73 sqM) Est GFR (CKD-EPI)NonAf 9 (>60 ml/min/1.73 sqM) Glucose 109 H (74-99) mg/dL Plasma Lactic Acid Han (0.7-2.0) mmol/L Calcium 8.1 L (8.4-10.2) mg/dL Magnesium 2.3 (1.6-2.3) mg/dL Total Bilirubin 0.4 (0.2-1.3) mg/dL AST 19 (17-59) U/L ALT 11 (4-49) U/L Alkaline Phosphatase 119 (38-126) U/L Total Protein 5.0 L (6.3-8.2) g/dL Albumin 2.4 L (3.5-5.0) g/dL Amylase 56 (30-110) U/L Lipase 35 (23-300) U/L Urine Color Yellow Urine Appearance Clear (Clear) Urine pH 5.0 (5.0-8.0) Ur Specific [place] 1.015 (1.001-1.035) Urine Protein Negative (Negative) Urine Glucose (UA) Negative (Negative) Urine Ketones Negative (Negative) Urine Blood Negative (Negative) Urine Nitrite Negative (Negative) Urine Bilirubin Negative (Negative) Urine Urobilinogen <2.0 (<2.0) mg/dL Ur Leukocyte Esterase Small H (Negative) Urine RBC 2 (0-5) /hpf Urine WBC 5 (0-5) /hpf Ur Squamous [place]ith Cells <1 (0-4) /hpf Urine Bacteria Rare H (None) /hpf Urine Mucus Rare H (None) /hpf C. difficile (EIA) Intrp (Negative) Disposition Clinical Impression: Perforated rectum, Diarrhea, Urinary retention, Acute renal failure Disposition: ADMITTED IP TO THIS [facility] Time of Disposition: 19:12
[2022-08-14 17:02] LABS: Anisocytosis Slight; Basophils # (A) 0.1 k/uL (0-0.2); Basophils % (A) 0 %; Eosinophils # (A) 0.4 k/uL (0-0.7); Eosinophils % (A) 2 %; HCT 30.2 % (39.0-53.0); Hypochromasia Marked; Lymphocytes # (A) 1.3 k/uL (1.0-4.8); Lymphocytes % (A) 6 %; MCH 23.3 pg (25.0-35.0); MCHC 28.6 g/dL (31.0-37.0); MCV 81.5 fL (80.0-100.0); Mean Platelet Volume 7.9; Microcytosis Slight; Monocytes # (A) 1.6 k/uL (0-1.0); Monocytes % (A) 7 %; Neutrophils # (A) 18.5 k/uL (1.3-7.7); Neutrophils % (A) 83 %; Platelet Count 827 k/uL (150-450); Poikilocytosis Slight; RBC 3.71 m/uL (4.30-5.90); RDW 19.4 % (11.5-15.5); WBC 22.2 k/uL (3.8-10.6)
[2022-08-14 17:16] LABS: HGB 8.6 gm/dL (13.0-17.5)
[2022-08-14 17:56] LABS: Albumin 2.4 g/dL (3.5-5.0); Calcium 8.1 mg/dL (8.4-10.2); Magnesium 2.3 mg/dL (1.6-2.3); Potassium 4.9 mmol/L (3.5-5.1); Total Bilirubin 0.4 mg/dL (0.2-1.3)
--- NOTE | 2022-08-14 18:45 | CT ---
EXAMINATION TYPE: CT abdomen pelvis wo con CT DLP: 463.2 mGycm, Automated exposure control for dose reduction was used. DATE OF EXAM: 08/14/2022 6:31 PM COMPARISON: CT abdomen pelvis most recent from 08/04/2022 CLINICAL INDICATION:Male, 61 years old with history of abdominal pain; abnormal WBC labs TECHNIQUE: Axial CT of the abdomen and pelvis. Sagittal and coronal reformats were created on a [employer] workstation. Contrast used: None Oral contrast used: without Oral Contrast FINDINGS: LOWER CHEST: Unremarkable ABDOMEN LIVER: Scattered calcified granulomas. Diffuse metastatic disease suboptimally visualized given nonco ntrast technique. GALLBLADDER AND BILE DUCTS: Gallbladder is distended measuring up to 10.2 x 2.9 cm. PANCREAS: Unremarkable. SPLEEN: Unremarkable. ADRENAL GLANDS: Unremarkable. KIDNEYS AND URETERS: There is moderate bilateral hydronephrosis. There is left nonobstructing renal c alculi. PELVIS BLADDER: Urinary bladder is distended REPRODUCTIVE: Coarse calcifications of the prostate gland are identified. ABDOMEN & PELVIS STOMACH AND BOWEL: No evidence of bowel obstruction. Post surgical changes to the bowel. There is a b bruno-ending extension posterior to the rectum which was seen on prior and is now larger containing fe robert measuring 7.4 x 3.1 cm previously 5.4 x 1.9 cm. There however air-fluid levels in this location. Findings likely representing perforation seen dating back to 07/13/2022. PERITONEUM: Free air in the rectum along with layering feces. VASCULATURE: No evidence of aortic aneurysm. MUSCULOSKELETAL: No acute osseous abnormalities LYMPH NODES: No gross evidence for lymphadenopathy. SOFT TISSUE/ABDOMINAL WALL: Unremarkable IMPRESSION: 1. Blind-ending pouch extending from the rectum to the presacral space which appears larger compared to immediate prior with internal feces. Findings most consistent with perforated rectum as seen datin g back to 07/13/2022. Surgical consultation is advised. 2. Bilateral mild hydronephrosis which could be secondary to back pressure from patient's distended u rinary bladder. This is new from prior. Correlate for ascending infection. 3. Poor visualization of metastatic disease given noncontrast technique.
[2022-08-14] MEDS ORDERED: PIPERACILLIN-TAZOBACTAM 3.375 GM in SODIUM CHLORIDE 0.9% 100 ML IVPB STA (18:56)
[2022-08-14 19:01] LABS: Appearance,Urine Clear (Clear); Bacteria,Urine Rare /hpf; Bilirubin,Urine Negative (Negative); Blood,Urine Negative (Negative); Color,Urine Yellow; Glucose,Urine (UA) Negative (Negative); Ketones,Urine Negative (Negative); Leukocyte Esterase,Urine Small (Negative); Mucus,Urine Rare /hpf; Nitrite,Urine Negative (Negative); Protein,Urine Negative (Negative); RBC,Urine 2 /hpf (0-5); Specific Gravity,Urine 1.015 (1.001-1.035); Squamous Epithelial Cell,Urine <1 /hpf (0-4); Urobilinogen,Urine <2.0 mg/dL (<2.0); WBC,Urine 5 /hpf (0-5)
[2022-08-14] MEDS ORDERED: SODIUM CHLORIDE 0.9% 1,000 ML IV ONE (19:12)
[2022-08-14] MEDS ORDERED: LIDOCAINE URO-JET JELLY 2% 5 ML KIT URETHRAL ONE (19:20)
[2022-08-14] MEDS: metroNIDAZOLE-NS PMX 500 MG in SALINE 1 100ML.BAG IVPB STA ×2 (21:19→22:52)
[2022-08-14] MEDS: HEPARIN SODIUM,PORCINE/PF 5,000 UNIT/0.5 ML SYRINGE SQ SCH (21:22)
[2022-08-14] MEDS: PANTOPRAZOLE 40 MG/10 ML VIAL IVP SCH (21:22)
[2022-08-14 21:48] LABS: INR 1.1 (<1.2); Prothrombin Time 12.1 sec (9.0-12.0)
--- NOTE | 2022-08-14 21:48 | XR ---
EXAMINATION TYPE: XR chest 1V portable DATE OF EXAM: 08/14/2022 9:19 PM COMPARISON: Chest radiographs from 05/26/2021 TECHNIQUE: XR chest 1V portable Portable AP radiograph of the chest. CLINICAL INDICATION:Male, 61 years old with history of chf; FINDINGS: Lungs/Pleura: There is no evidence of pleural effusion, focal consolidation, or pneumothorax. Pulmonary vascularity: Unremarkable. Heart/mediastinum: Cardiomediastinal silhouette is unremarkable. New wires projecting over the heart are noted. Musculoskeletal: No acute osseous pathology. New sternotomy wires. Lines: Right chest wall [id number] with tip projecting over the superior vena cava. IMPRESSION: 1. No acute cardiopulmonary disease/process. 2. No definitive evidence for acute exacerbation of congestive heart failure.
[2022-08-15] MEDS: PIPERACILLIN-TAZOBACTAM 3.375 GM in SODIUM CHLORIDE 0.9% 100 ML IVPB SCH ×3 (04:17→20:49)
--- NOTE | 2022-08-15 05:21 | CONS ---
CONSULTATION REASON FOR CONSULTATION: Advice regarding GERD and multiple medical issues, requested by Surgery. HISTORY OF PRESENT ILLNESS: This is a 61-year-old gentleman with a past medical history of prostate cancer, GERD, colon cancer, last chemo on Saturday on 07/14. The patient also had episode of GI bleed. The patient had an episode of C difficile colitis also. The patient had surgery in [place] in [place]. The patient's daughter works as a nurse. Currently, the patient is complaining of abdominal abscess and some diffuse abdominal pain mainly in the lower part of the abdomen, right more than the left. The patient underwent an abdominopelvic CAT scan, which showed blind-ending pouch suggestive of possibly perforated rectum and bilateral mild hydronephrosis. The patient admitted for evaluation. There is no history of any fever, rigors, or chills. PAST MEDICAL HISTORY: History of colon cancer surgery, GERD. The rest of the history reviewed. HOME MEDICATIONS: Reviewed include senna, dose and rest of medications reviewed. ALLERGIES: Sulfa. FAMILY HISTORY: History of cancer in the family. SOCIAL HISTORY: No smoking. No history of alcohol intake. REVIEW OF SYSTEMS: A 14-point review of systems is negative except as mentioned earlier. PHYSICAL EXAMINATION: VITAL SIGNS: Pulse is 100, blood pressure 130/111, respirations 18, temperature 98.9, pulse ox 98% on room air. HEENT: Conjunctivae normal. NECK: No JVD. CARDIOVASCULAR: S1, S2 muffled. RESPIRATIONS: Breath sounds diminished at the bases. Scattered rhonchi and crackles. ABDOMEN: Soft, status post surgery. Mild diffuse tenderness. No guarding. No rigidity. Bowel sounds diminished. No ascites. No mass palpable. LEGS: No edema. NERVOUS SYSTEM: No focal deficits. SKIN: No ulcer, rash, bleeding. JOINTS: No active deforming arthropathy. LABS: WBC 22.2, hemoglobin 8.5. ASSESSMENT: 1. Abdominal pain and possible rectal perforation with possible sepsis. 2. Increased WBC. 3. Acute renal failure, possibly multifactorial. 4. Gastroesophageal reflux disease. 5. History of prostate disorder. 6. Multiple medical issues. RECOMMENDATIONS AND DISCUSSION: This is a 61-year-old gentleman who presented with multiple complex medical issues, we will monitor the patient closely. I would recommend broad-spectrum IV antibiotics. IV fluids cautiously. Nephrology and Hematology/Oncology have been consulted. Overall prognosis is extremely guarded because of multiple complex medical issues. Further recommendation to follow. See orders for further details. Discussed with family at length and we will follow closely with Surgery and Oncology regarding further evaluation. MMODL / IJN: [id number] /
[2022-08-15] MEDS: metroNIDAZOLE-NS PMX 500 MG in SALINE 1 100ML.BAG IVPB SCH ×4 (05:37→23:55)
[2022-08-15] MEDS: PANTOPRAZOLE 40 MG/10 ML VIAL IVP SCH ×2 (08:16→21:10)
[2022-08-15] MEDS: HEPARIN SODIUM,PORCINE/PF 5,000 UNIT/0.5 ML SYRINGE SQ SCH ×2 (08:16→21:10)
[2022-08-15] MEDS: MIRTAZAPINE 15 MG TAB PO SCH (08:17)
[2022-08-15 09:11] LABS: Basophils # (A) 0.05 X 10*3/uL (0.00-0.10); Basophils % (A) 0.2 %; Eosinophils # (A) 0.27 X 10*3/uL (0.04-0.35); Eosinophils % (A) 1.3 %; HCT 25.8 % (39.6-50.0); HGB 7.7 g/dL (13.0-17.0); Immature Grans, Automated 0.7 %; Lymphocytes % (A) 4.2 %; MCH 23.4 pg (27.0-32.0); MCHC 29.8 g/dL (32.0-37.0); MCV 78.4 fL (80.0-97.0); Mean Platelet Volume 10.3 fL (9.5-12.2); Monocytes # (A) 1.51 X 10*3/uL (0.20-1.00); NRBC Per 100 WBC 0 /100 WBCS (0.0-0.0); Neutrophils # (A) 18.64 X 10*3/uL (1.80-7.70); Neutrophils % (A) 86.6 %; Platelet Count 894 X 10*3/uL (140-440); RBC 3.29 X 10*6/uL (4.40-5.60); RDW 22.2 % (11.5-14.5); WBC 21.53 X 10*3/uL (4.50-10.00)
--- NOTE | 2022-08-15 09:11 | P.GSHP ---
History of Present Illness H&P Date: 08/15/22 CHIEF COMPLAINT: Lower abdominal pain HISTORY OF PRESENT ILLNESS: This is 61-year-old male with a known history of metastatic rectal cancer diagnosed in 2018. Patient had resection of the rectal cancer and hepatic resection at [facility]. He had a leak at the resection site while he was in [place] and required a colostomy. He then had the colostomy reversed a couple of years ago. Patient has been on chemotherapy. Last chemotherapy treatment was 2 weeks ago. Patient has been complaining of lower abdominal pain for about a month and a half. He has been having stools. The stools have been loose and he has had incontinence of stool. He denies any pain in the rectum. Denies any blood in his stools. He has had some nausea no vomiting. Reports decrease in appetite. Patient has computed tomography scan of the abdomen and pelvis completed that reports blind-ending pouch extending from the rectum to the presacral space which appears larger compared to prior with internal feces. Findings most consistent with perforated rectum. Patient has elevated white count and is mildly tachycardic. Also evidence of acute kidney injury with urinary retention and bilateral mild hydronephrosis. Penn catheter inserted in ER. Patient has been admitted to surgical service. PAST MEDICAL HISTORY: See list. PAST SURGICAL HISTORY: See list. MEDICATIONS: See list. ALLERGIES: See list. SOCIAL HISTORY: No illicit drug use. REVIEW OF SYSTEMS: CONSTITUTIONAL: Denies fever or chills. HEENT: Denies blurred vision, vision changes, or eye pain. Denies hemoptysis CARDIOVASCULAR: Denies chest pain or pressure. RESPIRATORY: No shortness of breath. GASTROINTESTINAL: See HPI for pertinent findings HEMATOLOGIC: Denies bleeding disorders. GENITOURINARY: Denies any blood in urine or increased urinary frequency. SKIN: Denies pruitis. Denies rash. PHYSICAL EXAM: VITAL SIGNS: Reviewed GENERAL: Well-developed in no acute distress. HEENT: No sclera icterus. Extraocular movements grossly intact. Moist buccal mucosa. Head is atraumatic, normocephalic. No nasal drainage. ABDOMEN: Soft. Nondistended. Nontender NEUROLOGIC: Alert and oriented. Cranial nerves II through XII grossly intact. LABORATORY DATA: IMAGING: Computed tomography scan computed tomography scan of the abdomen and pelvis completed that reports blind-ending pouch extending from the rectum to the presacral space which appears larger compared to prior with internal feces. Findings most consistent with perforated rectum as seen dating back to 07/13/2022. Bilateral mild hydronephrosis will which could be secondary to back pressure from patient's distended urinary bladder. Poor visualization of metastatic disease given noncontrast technique ASSESSMENT: 1. Presacral abscess with perforated rectum 2. History of metastatic rectal cancer with prior resection and resection of liver 3. History of leak at rectal surgical site requiring colostomy and then reversal of colostomy 4. Urinary retention with mild bilateral hydronephrosis 5. Acute kidney injury PLAN: -Patient scheduled for drainage of presacral abscess, possible bowel resection, possible colostomy today with Dr. Tucker -Keep patient nothing by mouth -Continue IV fluids -Continue antibiotics -Continue supportive care Physician Communications Designer note has been reviewed by physician. Signing provider agrees with the documented findings, assessment, and plan of care. I have personally seen and examined the patient, reviewed the HOUSEKEEPING SUPERVISOR /PAs history, exam and MDM and agree with the assessment and plan as written. Based on total v isit time, I have performed more than 50% of the visit. As above: Patient with further decline since he was last seen in June. Patient now with a large abscess collection posterior to the rectum. It is difficult to follow the course of the rectum and I suspect the patient has some recurrence in the presacral space that contributed to the abscess collection and possible rectal perforation. Options reviewed with the patient and his family. We discussed the possibility of moving towards hospice at this point but the patient would like further intervention if possible to alleviate his suffering. We'll proceed with exploratory laparotomy with drainage of presacral abscess and colostomy placement. We discussed risks of bleeding, infection, recurrent abscess formation, ostomy related complications, hernia, dehiscence, respiratory failure, . They understand and wish to proceed. Past Medical History Past Medical History: Cancer, GERD/Reflux, Prostate Disorder Additional Past Medical History / Comment(s): colon cancer-LAST CHEMO ON 07/14/22. GI BLEED MARCH 2020 possible lung Mets History of Any Multi-Drug Resistant Organisms: C-DIFF Date of last positivie culture/infection: 03/21/2022 MDRO Source:: stool Past Surgical History: Bowel Resection, Cardiac Valve Replacement Additional Past Surgical History / Comment(s): liver/rectal colon cancer,. COLONOSCOPY. colostomy reversal January 2022, removed section of liver in 2019 Past Anesthesia/Blood Transfusion Reactions: No Reported Reaction Past Psychological History: No Psychological Hx Reported Smoking Status: Never smoker Past Alcohol Use History: None Reported Past Drug Use History: None Reported - Past Family History Father Family Medical History: Cancer Mother Family Medical History: Osteoarthritis (OA) Medications and Allergies Home Medications Medication Instructions Recorded Confirmed Type Megestrol Acetate 400 mg PO DAILY 08/04/22 08/14/22 History Sennosides [Senokot] 8.6 mg PO HS 08/04/22 08/14/22 History Acetaminophen Tab [Tylenol] 650 mg PO Q6HR PRN tab 08/08/22 08/14/22 Rx Loperamide [Imodium] 2 mg PO Q4HR #30 cap 08/08/22 08/14/22 Rx Pantoprazole Sodium 20 mg PO BID #60 tab 08/08/22 08/14/22 Rx HYDROcodone/APAP 10-325MG [[place] 1 tab PO Q6H PRN 08/14/22 08/14/22 History 10-325] Mirtazapine 7.5 mg PO DAILY 08/14/22 08/14/22 History [place] 1 applic TOPICAL BID 08/14/22 08/14/22 History Allergies Allergy/AdvReac Type Severity Reaction Status Date / Time Sulfa (Sulfonamide Allergy Anaphylaxis Verified 08/14/22 16:43 Antibiotics) Surgical - Exam Vital Signs Temp Pulse Resp BP Pulse Ox 99.9 F H 104 H 18 130/111 99 08/14/22 16:32 08/14/22 16:32 08/14/22 16:32 08/14/22 16:32 08/14/22 16:32 Results - Labs 08/15/22 05:37 08/15/22 05:37 Abnormal Lab Results - Last 24 Hours (Table) 08/14/22 08/14/22 08/14/22 Range/Units 16:56 17:34 18:35 WBC 22.2 H (3.8-10.6) k/uL RBC 3.71 L (4.30-5.90) m/uL Hgb 8.6 L D (13.0-17.5) gm/dL Hct 30.2 L (39.0-53.0) % MCH 23.3 L (25.0-35.0) pg MCHC 28.6 L (31.0-37.0) g/dL RDW 19.4 H (11.5-15.5) % Plt Count 827 H (150-450) k/uL Neutrophils # 18.5 H (1.3-7.7) k/uL Monocytes # 1.6 H (0-1.0) k/uL PT (9.0-12.0) sec Carbon Dioxide 14 L (22-30) mmol/L BUN 64 H (9-20) mg/dL Creatinine 6.37 H (0.66-1.25) mg/dL Glucose 109 H (74-99) mg/dL Calcium 8.1 L (8.4-10.2) mg/dL Total Protein 5.0 L (6.3-8.2) g/dL Albumin 2.4 L (3.5-5.0) g/dL Ur Leukocyte Esterase Small H (Negative) Urine Bacteria Rare H (None) /hpf Urine Mucus Rare H (None) /hpf 08/14/22 Range/Units 21:15 WBC (3.8-10.6) k/uL RBC (4.30-5.90) m/uL Hgb (13.0-17.5) gm/dL Hct (39.0-53.0) % MCH (25.0-35.0) pg MCHC (31.0-37.0) g/dL RDW (11.5-15.5) % Plt Count (150-450) k/uL Neutrophils # (1.3-7.7) k/uL Monocytes # (0-1.0) k/uL PT 12.1 H (9.0-12.0) sec Carbon Dioxide (22-30) mmol/L BUN (9-20) mg/dL Creatinine (0.66-1.25) mg/dL Glucose (74-99) mg/dL Calcium (8.4-10.2) mg/dL Total Protein (6.3-8.2) g/dL Albumin (3.5-5.0) g/dL Ur Leukocyte Esterase (Negative) Urine Bacteria (None) /hpf Urine Mucus (None) /hpf Diabetes panel 08/14/22 Range/Units 17:34 Sodium 137 (137-145) mmol/L Potassium 4.9 (3.5-5.1) mmol/L Chloride 107 (98-107) mmol/L Carbon Dioxide 14 L (22-30) mmol/L BUN 64 H (9-20) mg/dL Creatinine 6.37 H (0.66-1.25) mg/dL Glucose 109 H (74-99) mg/dL Calcium 8.1 L (8.4-10.2) mg/dL AST 19 (17-59) U/L ALT 11 (4-49) U/L Alkaline Phosphatase 119 (38-126) U/L Total Protein 5.0 L (6.3-8.2) g/dL Albumin 2.4 L (3.5-5.0) g/dL Calcium panel 08/14/22 Range/Units 17:34 Calcium 8.1 L (8.4-10.2) mg/dL Albumin 2.4 L (3.5-5.0) g/dL Pituitary panel 08/14/22 Range/Units 17:34 Sodium 137 (137-145) mmol/L Potassium 4.9 (3.5-5.1) mmol/L Chloride 107 (98-107) mmol/L Carbon Dioxide 14 L (22-30) mmol/L BUN 64 H (9-20) mg/dL Creatinine 6.37 H (0.66-1.25) mg/dL Glucose 109 H (74-99) mg/dL Calcium 8.1 L (8.4-10.2) mg/dL Adrenal panel 08/14/22 Range/Units 17:34 Sodium 137 (137-145) mmol/L Potassium 4.9 (3.5-5.1) mmol/L Chloride 107 (98-107) mmol/L Carbon Dioxide 14 L (22-30) mmol/L BUN 64 H (9-20) mg/dL Creatinine 6.37 H (0.66-1.25) mg/dL Glucose 109 H (74-99) mg/dL Calcium 8.1 L (8.4-10.2) mg/dL Total Bilirubin 0.4 (0.2-1.3) mg/dL AST 19 (17-59) U/L ALT 11 (4-49) U/L Alkaline Phosphatase 119 (38-126) U/L Total Protein 5.0 L (6.3-8.2) g/dL Albumin 2.4 L (3.5-5.0) g/dL
[2022-08-15 09:44] LABS: African American GFR (CKD) 24.1 (60.0-200.0); Albumin 2.6 g/dL (3.8-4.9); Albumin/Globulin Ratio 1.01 (1.60-3.17); Anion Gap 12.7 mmol/L (10.00-18.00); BUN/Creat Ratio 13.4 Ratio (12.00-20.00); Calcium 8.6 mg/dL (8.7-10.3); Carbon Dioxide 19.9 mmol/L (20.0-27.5); Globulin 2.6 g/dL (1.6-3.3); Non-African American GFR(CKD) 20.8 (60.0-200.0); Potassium 4.7 mmol/L (3.5-5.5); Total Bilirubin 0.3 mg/dL (0.30-1.20); Total Protein 5.1 g/dL (6.2-8.2)
--- NOTE | 2022-08-15 10:16 | P.NPCON ---
History of Present Illness - Reason for Consult acute renal failure - History of Present Illness Patient is a 61-year-old male with history of prostate cancer, gastroesophageal reflux disease, colon cancer maintained on chemotherapy. Patient has a history of C. diff colitis as well. Patient is admitted to the hospital with complaints of diffuse abdominal pain in the lower part of the abdomen. The CAT scan showed possibility of perforated rectum with bilateral mild hydronephrosis. Patient recently had abdominal surgery in [place]. It appears that patient is scheduled for surgery today. Serum creatinine was 6.3 on initial admission and it is down to 3.1 today. Penn catheter was placed with 1 L of urine obtained on initial insertion. Patient is maintained on IV bicarb. Previous creatinine at 0.8 mg/dL on 08/06/2022 Review of Systems As per HPI Past Medical History Past Medical History: Cancer, GERD/Reflux, Prostate Disorder Additional Past Medical History / Comment(s): colon cancer-LAST CHEMO ON 07/14/22. GI BLEED MARCH 2020 possible lung Mets History of Any Multi-Drug Resistant Organisms: C-DIFF Date of last positivie culture/infection: 03/21/2022 MDRO Source:: stool Past Surgical History: Bowel Resection, Cardiac Valve Replacement Additional Past Surgical History / Comment(s): liver/rectal colon cancer,. COLONOSCOPY. colostomy reversal January 2022, removed section of liver in 2018 Past Anesthesia/Blood Transfusion Reactions: No Reported Reaction Past Psychological History: No Psychological Hx Reported Smoking Status: Never smoker Past Alcohol Use History: None Reported Past Drug Use History: None Reported - Past Family History Father Family Medical History: Cancer Mother Family Medical History: Osteoarthritis (OA) Medications and Allergies Home Medications Medication Instructions Recorded Confirmed Type Megestrol Acetate 400 mg PO DAILY 08/04/22 08/14/22 History Sennosides [Senokot] 8.6 mg PO HS 08/04/22 08/14/22 History Acetaminophen Tab [Tylenol] 650 mg PO Q6HR PRN tab 08/08/22 08/14/22 Rx Loperamide [Imodium] 2 mg PO Q4HR #30 cap 08/08/22 08/14/22 Rx Pantoprazole Sodium 20 mg PO BID #60 tab 08/08/22 08/14/22 Rx HYDROcodone/APAP 10-325MG [[place] 1 tab PO Q6H PRN 08/14/22 08/14/22 History 10-325] Mirtazapine 7.5 mg PO DAILY 08/14/22 08/14/22 History Triad 1 applic TOPICAL BID 08/14/22 08/14/22 History Allergies Allergy/AdvReac Type Severity Reaction Status Date / Time Sulfa (Sulfonamide Allergy Anaphylaxis Verified 08/14/22 16:43 Antibiotics) Physical Exam Vitals: Vital Signs Temp Pulse Pulse Resp BP BP Pulse Ox 08/15/22 05:00 98.2 F 107 H 20 115/73 99 08/14/22 22:21 99.5 F 100 16 125/84 100 08/14/22 21:30 98.9 F 102 H 16 121/80 98 08/14/22 17:10 98 18 122/89 98 08/14/22 16:32 99.9 F H 104 H 18 130/111 99 Intake and Output 08/14/22 08/15/22 08/15/22 22:59 06:59 14:59 Intake Total 300 Output Total 1000 Balance -700 Intake: Intake, IV Titration 300 Amount Piperacillin-Tazobactam 3 100 .375 gm In Sodium Chloride 0.9% 100 ml @ 25 mls/hr IVPB Q8H CHENG Rx#: [id number] metroNIDAZOLE-NS PMX 500 100 mg In Saline 1 100ml.bag @ 100 mls/hr IVPB ONCE STA Rx#:[id number] metroNIDAZOLE-NS PMX 500 100 mg In Saline 1 100ml.bag @ 100 mls/hr IVPB Q6H CHENG Rx#:[id number] Output: Urine 1000 Other: Voiding Method Indwelling Catheter Weight 62.596 kg patient is awake, in pain Alert oriented 3 Examination of the heart S1 and S2 Examination of the lungs bilateral breath sounds are heard Abdomen is tender particularly in the lower abdomen examination lower extremity shows no evidence evidence of edema [employer] exam grossly intact Results - Lab Results Most recent lab results Calcium 8.6 mg/dL (8.7-10.3) L 08/15/22 05:37 Magnesium 2.3 mg/dL (1.6-2.3) 08/14/22 17:34 08/15/22 05:37 08/15/22 05:37 Assessment and Plan Assessment: 1. Acute kidney injury obstructive uropathy as well as prerenal currently improving with IV hydration and Penn catheter placement. 2. Abdominal pain with with possibility of perforated rectum being followed by surgery and plans for possible or today 3. History of colon cancer maintained on chemotherapy 4. Bilateral hydronephrosis status post Penn catheter placement 5. Metabolic acidosis secondary to acute kidney injury currently improving Plan: IV hydration with IV bicarb Maintain Penn catheter Repeat labs in a.m. Avoid nephrotoxic agents next Thank you for the consultation. We'll continue to follow the patient with you during his hospitalization
--- NOTE | 2022-08-15 10:19 | CDI ---
Documentation Clarification Form Date: 08/15/2022 09:51:14 AM From: Rafia Selby RN CCDS Admit Date: 08/14/2022 07:16:00 PM Patient Name: Elliot Garrison Visit Number: [id number] Discharge Date: ATTENTION: The Clinical Documentation Specialists (CDI) and [facility] Coding Staff appreciate your assistance in clarifying documentation. Please respond to the clarification below the line at the bottom and electronically sign. The CDI & [facility] Coding staff will review the response and follow-up if needed. Please note: Queries are made part of the Legal Health Record. If you have any questions, please contact the author of this message via ITS. Dr. Moises Tucker Sepsis is documented Medicine consult,08/14, but is not noted in subsequent documentation. Clarification is requested. History/Risk Factors: 61-year-old male presents to the ED with lower abdominal pain for a month and a half. He has been having loose stools and incontinence of stool. Decrease in appetite and nausea. Medical History: Metastatic rectal cancer 2018 with resection, developed a leak and had a colostomy which was reversed. Chemotherapy treatment two weeks ago. H&P, 08/15. Clinical Indicators: VSS, 08/14: B/P 130/111; HR 104; Temp 99.9 F Oral; RR 18; SpO2 99% room air ABD PELVIS, 08/14: Blind ending pouch extending from the rectum to the presacral space which appears larger compared to immediate prior with internal feces. Findings consistent with perforated rectum. Labs, 08/14: Wbc 22.2; Neutrophils 18.5 Medicine Consult, 08/14: Abdominal pain and possible rectal perforation with possible sepsis. Treatment: 08/14 0.9NS 1L bolus x 1; 08/14 Zosyn IVPB x 1; 08/14 Flagyl IVPB x 1; 08/15 Zosyn IVPB Q8HR CHENG; 08/15 Flagyl IVPB Q6HR CHENG. Please clarify if the Sepsis is: [ x] Sepsis confirmed, remains under treatment [ ] Sepsis ruled out [ ] Other condition, please specify [ ] Unable to determine (Template Last Revised: January 2021) MTDD
[2022-08-15] MEDS: DEXTROSE 5% IN WATER 1,000 ML with SODIUM BICARB (1 MEQ/ML) 150 ML IV SCH ×2 (11:02→21:03)
[2022-08-15] MEDS ORDERED: chlorproMAZINE 25 MG TAB PO PRN (12:39)
[2022-08-15] MEDS ORDERED: LACTATED RINGERS 1,000 ML IV ONE ×2 (15:38→18:17)
[2022-08-15] MEDS ORDERED: ONDANSETRON 4 MG/2 ML VIAL ONE (16:10)
[2022-08-15] MEDS ORDERED: ONDANSETRON 4 MG/2 ML VIAL IVP ONE (16:27)
[2022-08-15] MEDS ORDERED: DEXAMETHASONE SOD PHOSPHATE 4 MG/ML 1 ML VIAL IV ONE (16:28)
[2022-08-15] MEDS ORDERED: HYDROmorphone 0.5 MG/0.5 ML SYRINGE IVP PRN (18:09)
[2022-08-15] MEDS ORDERED: ONDANSETRON 4 MG/2 ML VIAL IVP PRN (18:09)
[2022-08-15] MEDS ORDERED: METOCLOPRAMIDE 5 MG/ML 2 ML VIAL IVP PRN (18:09)
[2022-08-15] MEDS ORDERED: NALOXONE 0.4 MG/ML 1 ML VIAL IV PRN (18:09)
--- NOTE | 2022-08-15 18:18 | P.OP ---
Date of Procedure: 08/15/22 Procedure(s) Performed: PREOPERATIVE DIAGNOSIS: Presacral abscess POSTOPERATIVE DIAGNOSIS: Same PROCEDURE: Exploratory laparotomy with drainage presacral abscess, partial colectomy with colostomy SURGEON: Caitlin EBL: 25 mL ANESTHESIA: General COMPLICATIONS: None OPERATIVE PROCEDURE: Patient place in the operative table in the supine position. The patient was placed under general anesthesia. The abdomen was prepped and draped in usual sterile fashion. A vertical incision was made extending from the umbilical region inferiorly. Dissection through the subcutaneous tissues took place sharply. The abdomen was entered sharply given the presence of a previous hernia there. The patient surprisingly had very few intra-abdominal adhesions. The Bookwalter retractor was utilized. The proximal colon was noted to extend into the pelvis. There were some adhesions circumferentially that were lysed bluntly. I was able to enter the presacral space and in doing so a large abscess cavity was encountered. This was present and full of stool which was evacuated manually and with the suction device. Copious irrigation took place in that area. No further purulence or stool was seen. The bowel was divided as far distal as we could with the contour stapler. The patient's pelvis was quite narrow and a portion of proximal colon was left in place there. I could not visualize or palpate the previous anastomosis. I could not palpate or visualize a defect in the bowel in the pelvis. I would estimate that the length of possibly devitalized colon was only a few centimeters in length. A drain was placed in the presacral space exiting from the right lateral lower quadrant. This was sutured in place using a 3-0 silk stitch. A circular incision was made in the left midabdomen. Dissection through the subcutaneous fat and fascia took place using electrocautery. I bluntly entered the perineal cavity and this was further bluntly opened. The bowel was brought out through this defect in the left midabdomen. The fascia of the lower midline was then mobilized using electrocautery. I was able to reapproximate fascia throughout the length of our incision site. The midline fascia was then reapproximated using a running double-stranded #1 PDS suture. The subcutaneous tissues were irrigated. The subcutaneous tissues were closed using 3-0 Vicryl sutures. The skin was then closed loosely using bushra. The ostomy was then addressed. A portion of the pericolonic fat was removed using the LigaSure device. The staple line was then removed using electrocautery. The ostomy was then matured in a [place] fashion using interrupted 3-0 Vicryl sutures. An ostomy appliance was then applied. Sterile dressings were then applied to the midline incision. DISPOSITION: Stable to recovery room
[2022-08-15] MEDS ORDERED: HYDROmorphone 0.5 MG/0.5 ML SYRINGE IVP ONE ×2 (18:33→19:15)
[2022-08-15 20:02] LABS: Glucose,Whole Blood 88 mg/dL (70-110)
[2022-08-15] MEDS: oxyCODONE-APAP 5-325MG 1 EACH TAB PO PRN (20:49)
[2022-08-15] MEDS: HYDROmorphone 1 MG/ML 1 ML SYRINGE IVP PRN (21:08)
[2022-08-15] MEDS: ACETAMINOPHEN IV (For NPO) 1,000 MG in EMPTY BAG 1 BAG IVPB SCH (21:10)
--- NOTE | 2022-08-15 22:39 | P.CONS ---
History of Present Illness - Reason for Consult Consult date: 08/15/22 rectal cancer Requesting physician: Leon Navarro - Chief Complaint abd pain - History of Present Illness Mr. Garrison is a very pleasant 61 yo male with a history of metastatic rectal cancer, multiple lines of treatment, with mets to liver and local recurrences over the years, most recently on palliative chemo treatment with irinotecan/bevacizumab (last on 07/13/2022, last seen in ofc 07/19.) He has presented to the ED several times in the last month with c/o abd pain, usually with nausea, vomiting, constipation/diarrhea. He has been treated conservatively with resolution of his symptoms only to have them return within a few weeks. He has several ventral hernias from previous surgery, ostomy and reversal. Last CT was 08/04 and regards to disease he was stable. He has returned to the hospital for abd pain, lower part of this abd this time, CT AP concerning for pre-sacral abscess. When seen today pt is very uncomfortable, lower abd pain now, he has hiccups, denies fever, nausea, vomiting, SOB, chest pain, dysuria, hematuria, he is feeling really weak and tired. Review of Systems 10 point ROS is neg except as stated in HPI Past Medical History Past Medical History: Cancer, GERD/Reflux, Prostate Disorder Additional Past Medical History / Comment(s): colon cancer-LAST CHEMO ON 07/14/22. GI BLEED MARCH 2020 possible lung Mets History of Any Multi-Drug Resistant Organisms: C-DIFF Year Discovered:: 03/21/2022 MDRO Source:: stool Past Surgical History: Bowel Resection, Cardiac Valve Replacement Additional Past Surgical History / Comment(s): liver/rectal colon cancer,. COLONOSCOPY. colostomy reversal January 2022, removed section of liver in 2018 Past Anesthesia/Blood Transfusion Reactions: No Reported Reaction Past Psychological History: No Psychological Hx Reported Smoking Status: Never smoker Past Alcohol Use History: None Reported Past Drug Use History: None Reported - Past Family History Father Family Medical History: Cancer Mother Family Medical History: Osteoarthritis (OA) Medications and Allergies Home Medications Medication Instructions Recorded Confirmed Type Megestrol Acetate 400 mg PO DAILY 08/04/22 08/14/22 History Sennosides [Senokot] 8.6 mg PO HS 08/04/22 08/14/22 History Acetaminophen Tab [Tylenol] 650 mg PO Q6HR PRN tab 08/08/22 08/14/22 Rx Loperamide [Imodium] 2 mg PO Q4HR #30 cap 08/08/22 08/14/22 Rx Pantoprazole Sodium 20 mg PO BID #60 tab 08/08/22 08/14/22 Rx HYDROcodone/APAP 10-325MG [[place] 1 tab PO Q6H PRN 08/14/22 08/14/22 History 10-325] Mirtazapine 7.5 mg PO DAILY 08/14/22 08/14/22 History Triad 1 applic TOPICAL BID 08/14/22 08/14/22 History Allergies Allergy/AdvReac Type Severity Reaction Status Date / Time Sulfa (Sulfonamide Allergy Anaphylaxis Verified 08/15/22 15:53 Antibiotics) Physical Exam Vitals: Vital Signs Temp Pulse Pulse Resp BP BP Pulse Ox 08/15/22 15:39 102.1 F H 112 H 22 122/76 99 08/15/22 12:42 99.8 F H 121 H 16 137/86 96 08/15/22 05:00 98.2 F 107 H 20 115/73 99 08/14/22 22:21 99.5 F 100 16 125/84 100 08/14/22 21:30 98.9 F 102 H 16 121/80 98 Intake and Output 08/15/22 08/15/22 08/15/22 06:59 14:59 22:59 Intake Total 300 1220 Output Total 1000 1125 Balance -700 95 Intake: IV 900 Intake, IV Titration 300 320 Amount Dextrose 5% in Water 1, 320 000 ml @ 80 mls/hr IV . [id number] CHENG with Sodium Bicarb (1 Meq/ml) 150 ml Rx#:[id number] Piperacillin-Tazobactam 3 100 .375 gm In Sodium Chloride 0.9% 100 ml @ 25 mls/hr IVPB Q8H CHENG Rx#: [id number] metroNIDAZOLE-NS PMX 500 100 mg In Saline 1 100ml.bag @ 100 mls/hr IVPB ONCE STA Rx#:[id number] metroNIDAZOLE-NS PMX 500 100 mg In Saline 1 100ml.bag @ 100 mls/hr IVPB Q6H CHENG Rx#:[id number] Output: Urine 1000 1100 Estimated Blood Loss 25 Other: Voiding Method Indwelling Catheter Weight 62.596 kg - Constitutional pt visibly in pain, hiccups General appearance: cooperative, disheveled, mild distress, thin - EENT Eyes: anicteric sclerae, EOMI ENT: hearing grossly normal - Neck Neck: no lymphadenopathy - Respiratory Respiratory: bilateral: CTA - Cardiovascular Rhythm: regular Heart sounds: normal: S1, S2 Abnormal Heart Sounds: no systolic murmur, no diastolic murmur, no rub, no S3 Gallop, no S4 Gallop, no click, no other leg Peripheral Edema: bilateral: None - Gastrointestinal General gastrointestinal: no absent bowel sounds, decreased bowel sounds, no distended, no hepatomegaly, no hyperactive bowel sounds, no normal bowel sounds, no organomegaly, no rigid, no scaphoid, soft, no splenomegaly, tenderness, no umbilical hernia, ventral hernia - Integumentary Integumentary: pale - Neurologic Neurologic: CNII-XII intact - Musculoskeletal Musculoskeletal: generalized weakness - Psychiatric Psychiatric: A&O x's 3, appropriate affect, intact judgment & insight Results CBC & Chem 7: 08/15/22 05:37 08/15/22 05:37 Labs: Abnormal Lab Results - Last 24 Hours (Table) 08/14/22 08/14/22 08/15/22 Range/Units 18:35 21:15 05:37 WBC 21.53 H (4.50-10.00) X 10*3/uL RBC 3.29 L (4.40-5.60) X 10*6/uL Hgb 7.7 L (13.0-17.0) g/dL Hct 25.8 L (39.6-50.0) % MCV 78.4 L (80.0-97.0) fL MCH 23.4 L (27.0-32.0) pg MCHC 29.8 L (32.0-37.0) g/dL RDW 22.2 H (11.5-14.5) % Plt Count 894 H (140-440) X 10*3/uL Immature Gran # 0.16 H (0.00-0.04) X 10*3/uL Neutrophils # 18.64 H (1.80-7.70) X 10*3/uL Monocytes # 1.51 H (0.20-1.00) X 10*3/uL PT 12.1 H (9.0-12.0) sec Carbon Dioxide (20.0-27.5) mmol/L BUN (9.0-27.0) mg/dL Creatinine (0.6-1.5) mg/dL Est GFR (CKD-EPI)AfAm (60.0-200.0) Est GFR (CKD-EPI)NonAf (60.0-200.0) Calcium (8.7-10.3) mg/dL ALT (10-49) U/L Alkaline Phosphatase (41-126) U/L Total Protein (6.2-8.2) g/dL Albumin (3.8-4.9) g/dL Albumin/Globulin Ratio (1.60-3.17) g/dL Ur Leukocyte Esterase Small H (Negative) Urine Bacteria Rare H (None) /hpf Urine Mucus Rare H (None) /hpf 08/15/22 Range/Units 05:37 WBC (4.50-10.00) X 10*3/uL RBC (4.40-5.60) X 10*6/uL Hgb (13.0-17.0) g/dL Hct (39.6-50.0) % MCV (80.0-97.0) fL MCH (27.0-32.0) pg MCHC (32.0-37.0) g/dL RDW (11.5-14.5) % Plt Count (140-440) X 10*3/uL Immature Gran # (0.00-0.04) X 10*3/uL Neutrophils # (1.80-7.70) X 10*3/uL Monocytes # (0.20-1.00) X 10*3/uL PT (9.0-12.0) sec Carbon Dioxide 19.9 L (20.0-27.5) mmol/L BUN 41.0 H (9.0-27.0) mg/dL Creatinine 3.1 H (0.6-1.5) mg/dL Est GFR (CKD-EPI)AfAm 24.1 L (60.0-200.0) Est GFR (CKD-EPI)NonAf 20.8 L (60.0-200.0) Calcium 8.6 L (8.7-10.3) mg/dL ALT 7 L (10-49) U/L Alkaline Phosphatase 128 H (41-126) U/L Total Protein 5.1 L (6.2-8.2) g/dL Albumin 2.6 L (3.8-4.9) g/dL Albumin/Globulin Ratio 1.01 L (1.60-3.17) g/dL Ur Leukocyte Esterase (Negative) Urine Bacteria (None) /hpf Urine Mucus (None) /hpf Microbiology - Last 24 Hours (Table) 08/14/22 18:34 Urine Culture - Preliminary Urine,Catheterized Chest x-ray: report reviewed CT scan - abdomen: report reviewed CT scan - pelvis: report reviewed Assessment and Plan (1) Abscess, sacrum Current Visit: Yes Status: Acute Priority: High Code(s): M46.28 - OSTEOMYELITIS OF VERTEBRA, SACRAL AND SACROCOCCYGEAL REGION SNOMED Code(s): 196695040 (2) Rectal adenocarcinoma Current Visit: No Status: Chronic Priority: Medium Code(s): C20 - MALIGNANT NEOPLASM OF RECTUM SNOMED Code(s): 007848087 (3) Anemia Current Visit: Yes Status: Chronic Priority: Medium Code(s): D64.9 - ANEMIA, UNSPECIFIED SNOMED Code(s): 558481837 Plan: Agree with surgical intervention for acute findings. Thorazine ordered for hiccups Hold any chemo treatment for about 4-6 weeks post op. Pt wants to have a conversation about further treatment after surgery is complete. We have planned for this. Progressive anemia. CBC monitoring. Will check iron studies. CEA ordered
--- NOTE | 2022-08-15 23:54 | P.CONS ---
History of Present Illness - Reason for Consult Consult date: 08/15/22 Sepsis Requesting physician: Joss Grier - Chief Complaint Lower abdominal pain x one month - History of Present Illness Patient is a 61-year-old male with a past medical history significant for metastatic rectal cancer diagnosed back in 2018 patient did have a resection of the rectal cancer as well as hepatic metastasis resection [facility] subsequently patient did have a leak at the resection site and identified the colostomy and subsequent did have reversal of the colostomy few years ago patient is currently on chemotherapy with last chemo about 2 weeks ago patient has been complaining of lower abdominal pain that has been going on for almost a month now describing the pain more of a sharp at times colicky 5-6 out of 10 and no radiation patient also having some liquidy stools but no blood or mucus in the stool with the symptom the patient has been evaluated by the ER physician on arrival to the ER patient did have a CT of abdominal pelvis which reported a blind-ending pouch extending from the rectum to the presacral space which appears larger and concerning for possible abscess patient was started on Zosyn and scheduled for surgery this afternoon infectious disease was consulted for further management of antibiotic therapy Review of Systems Positive point has been mentioned in the HPI rest of the systems are negative Past Medical History Past Medical History: Cancer, GERD/Reflux, Prostate Disorder Additional Past Medical History / Comment(s): colon cancer-LAST CHEMO ON 07/14/22. GI BLEED MARCH 2020 possible lung Mets History of Any Multi-Drug Resistant Organisms: C-DIFF Year Discovered:: 03/21/2022 MDRO Source:: stool Past Surgical History: Bowel Resection, Cardiac Valve Replacement Additional Past Surgical History / Comment(s): liver/rectal colon cancer,. COLONOSCOPY. colostomy reversal January 2022, removed section of liver in 2018 Past Anesthesia/Blood Transfusion Reactions: No Reported Reaction Past Psychological History: No Psychological Hx Reported Smoking Status: Never smoker Past Alcohol Use History: None Reported Past Drug Use History: None Reported - Past Family History Father Family Medical History: Cancer Mother Family Medical History: Osteoarthritis (OA) Medications and Allergies Home Medications Medication Instructions Recorded Confirmed Type Megestrol Acetate 400 mg PO DAILY 08/04/22 08/14/22 History Sennosides [Senokot] 8.6 mg PO HS 08/04/22 08/14/22 History Acetaminophen Tab [Tylenol] 650 mg PO Q6HR PRN tab 08/08/22 08/14/22 Rx Loperamide [Imodium] 2 mg PO Q4HR #30 cap 08/08/22 08/14/22 Rx Pantoprazole Sodium 20 mg PO BID #60 tab 08/08/22 08/14/22 Rx HYDROcodone/APAP 10-325MG [[place] 1 tab PO Q6H PRN 08/14/22 08/14/22 History 10-325] Mirtazapine 7.5 mg PO DAILY 08/14/22 08/14/22 History Triad 1 applic TOPICAL BID 08/14/22 08/14/22 History Allergies Allergy/AdvReac Type Severity Reaction Status Date / Time Sulfa (Sulfonamide Allergy Anaphylaxis Verified 08/15/22 15:53 Antibiotics) Physical Exam Vitals: Vital Signs Temp Pulse Pulse Resp BP BP Pulse Ox 08/15/22 12:42 99.8 F H 121 H 16 137/86 96 08/15/22 05:00 98.2 F 107 H 20 115/73 99 08/14/22 22:21 99.5 F 100 16 125/84 100 08/14/22 21:30 98.9 F 102 H 16 121/80 98 08/14/22 17:10 98 18 122/89 98 08/14/22 16:32 99.9 F H 104 H 18 130/111 99 Intake and Output 08/14/22 08/15/22 08/15/22 22:59 06:59 14:59 Intake Total 300 Output Total 1000 Balance -700 Intake: Intake, IV Titration 300 Amount Piperacillin-Tazobactam 3 100 .375 gm In Sodium Chloride 0.9% 100 ml @ 25 mls/hr IVPB Q8H [facility] Rx#: [id number] metroNIDAZOLE-NS PMX 500 100 mg In Saline 1 100ml.bag @ 100 mls/hr IVPB ONCE [facility] Rx#:[id number] metroNIDAZOLE-NS PMX 500 100 mg In Saline 1 100ml.bag @ 100 mls/hr IVPB Q6H [facility] Rx#:[id number] Output: Urine 1000 Other: Voiding Method Indwelling Catheter Indwelling Catheter Weight 62.596 kg 62.596 kg GENERAL DESCRIPTION: Middle-aged male lying in bed, no distress. No tachypnea or accessory muscle of respiration use. HEENT: Shows Pallor , no scleral icterus. Oral mucous membrane is dry. No pharyngeal erythema or thrush NECK: Trachea central, no thyromegaly. LUNGS: Unlabored breathing. Clear to auscultation anteriorly. No wheeze or crackle. HEART: S1, S2, regular rate and rhythm. No loud murmur ABDOMEN: Soft, no tenderness , EXTREMITIES: No edema of feet. SKIN: No rash, no masses palpable. NEUROLOGICAL: The patient is awake, alert, oriented x3, mood and affect normal. Results CBC & Chem 7: 08/15/22 05:37 08/15/22 05:37 Labs: Abnormal Lab Results - Last 24 Hours (Table) 08/14/22 08/14/22 08/14/22 Range/Units 16:56 17:34 18:35 WBC 22.2 H (3.8-10.6) k/uL RBC 3.71 L (4.30-5.90) m/uL Hgb 8.6 L D (13.0-17.5) gm/dL Hct 30.2 L (39.0-53.0) % MCV (80.0-97.0) fL MCH 23.3 L (25.0-35.0) pg MCHC 28.6 L (31.0-37.0) g/dL RDW 19.4 H (11.5-15.5) % Plt Count 827 H (150-450) k/uL Immature Gran # (0.00-0.04) X 10*3/uL Neutrophils # 18.5 H (1.3-7.7) k/uL Monocytes # 1.6 H (0-1.0) k/uL PT (9.0-12.0) sec Carbon Dioxide 14 L (22-30) mmol/L BUN 64 H (9-20) mg/dL Creatinine 6.37 H (0.66-1.25) mg/dL Est GFR (CKD-EPI)AfAm (60.0-200.0) Est GFR (CKD-EPI)NonAf (60.0-200.0) Glucose 109 H (74-99) mg/dL Calcium 8.1 L (8.4-10.2) mg/dL ALT (10-49) U/L Alkaline Phosphatase (41-126) U/L Total Protein 5.0 L (6.3-8.2) g/dL Albumin 2.4 L (3.5-5.0) g/dL Albumin/Globulin Ratio (1.60-3.17) g/dL Ur Leukocyte Esterase Small H (Negative) Urine Bacteria Rare H (None) /hpf Urine Mucus Rare H (None) /hpf 08/14/22 08/15/22 08/15/22 Range/Units 21:15 05:37 05:37 WBC 21.53 H (3.8-10.6) k/uL RBC 3.29 L (4.30-5.90) m/uL Hgb 7.7 L (13.0-17.5) gm/dL Hct 25.8 L (39.0-53.0) % MCV 78.4 L (80.0-97.0) fL MCH 23.4 L (25.0-35.0) pg MCHC 29.8 L (31.0-37.0) g/dL RDW 22.2 H (11.5-15.5) % Plt Count 894 H (150-450) k/uL Immature Gran # 0.16 H (0.00-0.04) X 10*3/uL Neutrophils # 18.64 H (1.3-7.7) k/uL Monocytes # 1.51 H (0-1.0) k/uL PT 12.1 H (9.0-12.0) sec Carbon Dioxide 19.9 L (22-30) mmol/L BUN 41.0 H (9-20) mg/dL Creatinine 3.1 H (0.66-1.25) mg/dL Est GFR (CKD-EPI)AfAm 24.1 L (60.0-200.0) Est GFR (CKD-EPI)NonAf 20.8 L (60.0-200.0) Glucose (74-99) mg/dL Calcium 8.6 L (8.4-10.2) mg/dL ALT 7 L (10-49) U/L Alkaline Phosphatase 128 H (41-126) U/L Total Protein 5.1 L (6.3-8.2) g/dL Albumin 2.6 L (3.5-5.0) g/dL Albumin/Globulin Ratio 1.01 L (1.60-3.17) g/dL Ur Leukocyte Esterase (Negative) Urine Bacteria (None) /hpf Urine Mucus (None) /hpf Microbiology - Last 24 Hours (Table) 08/14/22 18:34 Urine Culture - Preliminary Urine,Catheterized Assessment and Plan (1) Intra-abdominal abscess Current Visit: Yes Status: Acute Code(s): K65.1 - PERITONEAL ABSCESS SNOMED Code(s): 71493135 Plan: 1patient with a pelvic abscess in this patient found to have a history of metastatic rectal cancer with a previous surgery he now presents hospital with abdominal pain and CT has been suspicious for an abscess we will need to call for any data gram-negative with a likely pathogen awaiting surgical drainage 2patient will need OR cultures at the time of surgical drainage of this abscess this was discussed with the patient nurse 3-patient to continue with Zosyn while waiting for the culture to finalize We will follow on clinical condition and cultures to further adjust medication if needed Thank you for this consultation will follow this patient along with you Time with Patient: Greater than 30
[2022-08-16] MEDS: HYDROmorphone 1 MG/ML 1 ML SYRINGE IVP PRN ×4 (02:55→20:27)
[2022-08-16] MEDS: ACETAMINOPHEN IV (For NPO) 1,000 MG in EMPTY BAG 1 BAG IVPB SCH ×3 (02:55→17:39)
[2022-08-16] MEDS: metroNIDAZOLE-NS PMX 500 MG in SALINE 1 100ML.BAG IVPB SCH ×3 (04:01→17:42)
[2022-08-16] MEDS: PIPERACILLIN-TAZOBACTAM 3.375 GM in SODIUM CHLORIDE 0.9% 100 ML IVPB SCH ×3 (04:01→20:33)
--- NOTE | 2022-08-16 06:18 | PN ---
PROGRESS NOTE SUBJECTIVE: This is a 61-year-old gentleman who was admitted with abdominal pain, possible rectal perforation and sepsis, also had significant renal failure. Surgery and Nephrology following the patient closely. Creatinine is improved to 3 today. The patient is on IV fluids. Dr. Tucker has seen the patient and recommended drainage of the presacral abscess, possible bowel resection, possible colostomy with Dr. Tucker. There is no history of any fever, rigors, or chills at this time. PAST MEDICAL HISTORY: History of GERD, history of colon cancer, other history reviewed. REVIEW OF SYSTEMS: A 14-point review of systems is negative except as mentioned earlier. CURRENT MEDICATIONS: Reviewed include heparin, Flagyl and Zosyn. Dose and rest of medications noted. PHYSICAL EXAMINATION: VITAL SIGNS: Pulse is 100, blood pressure 120/80, respirations 16. HEENT: Conjunctivae normal. NECK: No JVD. CARDIOVASCULAR: S1, S2 muffled. RESPIRATIONS: Breath sounds diminished at the bases. Scattered rhonchi. ABDOMEN: Soft. Mild diffuse discomfort to palpation. No guarding. No rigidity. No mass palpable. LEGS: No edema. NERVOUS SYSTEM: No focal deficits. LABS: WBC 21.5. Other labs are noted. ASSESSMENT: 1. Presacral abscess with perforated rectum. 2. Metastatic rectal cancer. 3. Possible sepsis. 4. Urinary tract infection, present on admission. 5. Increased WBC. 6. Acute renal failure, possibly multifactorial. 7. Gastroesophageal reflux disease. 8. History of prostate disorder. 9. Multiple medical issues. RECOMMENDATIONS AND DISCUSSION: Recommend to continue current management and symptomatic treatment. Otherwise, at this time, I would recommend repeat labs. Continue the antibiotics. Follow the cultures. Surgical procedure by Dr. Tucker. Otherwise, closely follow with Dr. Soto and Dr. Andrade and Nephrology. Guarded prognosis. Further recommendations to follow. MMODL / IJN: [id number] /
[2022-08-16 06:34] LABS: Anisocytosis Slight; Basophils # (A) 0.1 k/uL (0-0.2); Basophils % (A) 0 %; Eosinophils % (A) 0 %; HCT 29.8 % (39.0-53.0); HGB 8.3 gm/dL (13.0-17.5); Hypochromasia Marked; Lymphocytes # (A) 0.7 k/uL (1.0-4.8); Lymphocytes % (A) 3 %; MCH 23.5 pg (25.0-35.0); MCHC 27.7 g/dL (31.0-37.0); Mean Platelet Volume 7.6; Monocytes # (A) 1.1 k/uL (0-1.0); Monocytes % (A) 4 %; Neutrophils # (A) 23.5 k/uL (1.3-7.7); Neutrophils % (A) 92 %; Platelet Count 761 k/uL (150-450); RBC 3.51 m/uL (4.30-5.90); RDW 19.4 % (11.5-15.5); WBC 25.5 k/uL (3.8-10.6)
[2022-08-16 07:04] LABS: Calcium 8.3 mg/dL (8.4-10.2); Potassium 5.1 mmol/L (3.5-5.1)
[2022-08-16 09:24] LABS: % Iron Saturation 5.4 (15.00-50.00)
[2022-08-16] MEDS: HEPARIN SODIUM,PORCINE/PF 5,000 UNIT/0.5 ML SYRINGE SQ SCH ×2 (09:25→20:33)
[2022-08-16] MEDS: PANTOPRAZOLE 40 MG/10 ML VIAL IVP SCH ×2 (09:25→20:33)
[2022-08-16] MEDS: MIRTAZAPINE 15 MG TAB PO SCH (09:25)
[2022-08-16] MEDS: SODIUM CHLORIDE 0.9% 1,000 ML IV SCH (09:26)
--- NOTE | 2022-08-16 11:01 | P.CNPUL ---
History of Present Illness Consult date: 08/16/22 Requesting physician: Moises Tucker Chief complaint: Abdominal pain, diarrhea History of present illness: This is a pleasant 61-year-old male patient with a known history of colon cancer with liver metastasis with previous colectomy and colostomy and subsequent reversal in January 2022. He had liver resection in 2019. He's also had cardiac valve replacement. His last round of chemotherapy was on 07/14/2022. He presented here to the emergency room on 08/14/2022 with lower abdominal discomfort right greater than left and diarrhea. CAT scan of the abdomen and pelvis revealed a blind ending pouch extending from the rectum to the presacral space which appeared larger compared to previous. Most consistent with perforated rectum. On 08/15/2022 he had undergone an exploratory laparotomy with drainage of the presacral abscess, partial colectomy with colostomy. There is some concerns regarding possible extended intubation and mechanical ventilation he was admitted to the intensive care unit. The patient was extubated however. He is awake and alert. He is maintaining O2 saturations in the 90s on room air. Currently on D5W with 3 A of bicarb at 80 mL per hour. He's also been maintained on Flagyl and Zosyn. Working well with the incentive spirometer. White count 25.5. Hemoglobin 8.3. Platelets 761. Sodium 141. Potassium 5.1. BUN 24. Creatinine 1.09. Carcinoembryonic antigen 1333. C. difficile screen was negative. Review of Systems REVIEW OF SYSTEMS: CONSTITUTIONAL: Denies any recent significant weight loss or weight gain. EYES: Denies change in vision. EARS, NOSE, MOUTH, THROAT: Denies headaches, denies sore throat. CARDIOVASCULAR: Denies chest pain, palpitations or syncopal episodes. RESPIRATORY: Denies shortness of breath, cough, congestion or hemoptysis. GASTROINTESTINAL: Positive for abdominal pain and diarrhea GENITOURINARY: Denies hematuria, denies infections. MUSKULOSKELETAL: Denies pain, denies swelling. INTEGUMENTARY: Denies rash, denies eczema. NEUROLOGICAL: Denies recent memory loss, no recent seizure activity. PSYCHIATRIC: Denies anxiety, denies depression. HEMATOLOGIC/LYMPHATIC: Denies anemia, denies enlarged lymph nodes. Past Medical History Past Medical History: Cancer, GERD/Reflux, Prostate Disorder Additional Past Medical History / Comment(s): colon cancer-LAST CHEMO ON 07/14/22. GI BLEED MARCH 2020 possible lung Mets History of Any Multi-Drug Resistant Organisms: C-DIFF Date of last positivie culture/infection: 03/21/2022 MDRO Source:: stool Past Surgical History: Bowel Resection, Cardiac Valve Replacement Additional Past Surgical History / Comment(s): liver/rectal colon cancer,. COLONOSCOPY. colostomy reversal January 2022, removed section of liver in 2018 Past Anesthesia/Blood Transfusion Reactions: No Reported Reaction Past Psychological History: No Psychological Hx Reported Smoking Status: Never smoker Past Alcohol Use History: None Reported Past Drug Use History: None Reported - Past Family History Father Family Medical History: Cancer Mother Family Medical History: Osteoarthritis (OA) Medications and Allergies Home Medications Medication Instructions Recorded Confirmed Type Megestrol Acetate 400 mg PO DAILY 08/04/22 08/14/22 History Sennosides [Senokot] 8.6 mg PO HS 08/04/22 08/14/22 History Acetaminophen Tab [Tylenol] 650 mg PO Q6HR PRN tab 08/08/22 08/14/22 Rx Loperamide [Imodium] 2 mg PO Q4HR #30 cap 08/08/22 08/14/22 Rx Pantoprazole Sodium 20 mg PO BID #60 tab 08/08/22 08/14/22 Rx HYDROcodone/APAP 10-325MG [[place] 1 tab PO Q6H PRN 08/14/22 08/14/22 History 10-325] Mirtazapine 7.5 mg PO DAILY 08/14/22 08/14/22 History Triad 1 applic TOPICAL BID 08/14/22 08/14/22 History Allergies Allergy/AdvReac Type Severity Reaction Status Date / Time Sulfa (Sulfonamide Allergy Anaphylaxis Verified 08/15/22 15:53 Antibiotics) Physical Exam Vitals: Vital Signs Temp Pulse Pulse Pulse Resp BP BP 08/16/22 09:30 90 14 126/100 08/16/22 09:00 85 13 120/78 08/16/22 08:30 86 13 120/78 08/16/22 08:00 98.1 F 84 13 111/87 08/16/22 07:37 08/16/22 07:30 11 L 111/87 08/16/22 07:00 99 11 L 08/16/22 06:30 98 12 127/92 08/16/22 06:00 99 15 08/16/22 05:30 91 12 119/81 08/16/22 05:00 102 H 14 08/16/22 04:30 94 11 L 112/84 08/16/22 04:00 98 12 08/16/22 03:30 105 H 12 120/86 08/16/22 02:30 105 H 16 147/90 08/16/22 02:00 110 H 12 08/16/22 01:30 108 H 19 136/88 08/16/22 01:00 106 H 15 08/16/22 00:30 104 H 15 130/88 08/16/22 00:00 97.1 F L 109 H 14 08/15/22 23:30 111 H 13 08/15/22 23:00 113 H 14 128/93 08/15/22 22:30 114 H 13 08/15/22 22:00 117 H 14 129/84 08/15/22 21:30 116 H 18 133/89 08/15/22 21:25 08/15/22 21:00 117 H 19 08/15/22 20:30 98.9 F 123 H 20 135/94 08/15/22 19:50 114 H 18 152/87 08/15/22 19:30 115 H 18 153/82 08/15/22 19:15 112 H 18 148/86 08/15/22 19:00 115 H 18 150/93 08/15/22 18:45 113 H 18 144/86 08/15/22 18:30 111 H 16 154/85 08/15/22 18:17 100.6 F H 109 H 12 145/81 08/15/22 15:39 102.1 F H 112 H 22 122/76 08/15/22 12:42 99.8 F H 121 H 16 137/86 Pulse Ox FiO2 08/16/22 09:30 95 08/16/22 09:00 95 08/16/22 08:30 95 08/16/22 08:00 96 08/16/22 07:37 95 21 08/16/22 07:30 94 L 08/16/22 07:00 94 L 08/16/22 06:30 94 L 08/16/22 06:00 97 08/16/22 05:30 95 08/16/22 05:00 95 08/16/22 04:30 96 08/16/22 04:00 94 L 08/16/22 03:30 94 L 08/16/22 02:30 94 L 08/16/22 02:00 95 08/16/22 01:30 96 08/16/22 01:00 96 08/16/22 00:30 95 08/16/22 00:00 95 08/15/22 23:30 94 L 08/15/22 23:00 94 L 08/15/22 22:30 97 08/15/22 22:00 98 08/15/22 21:30 97 08/15/22 21:25 97 08/15/22 21:00 97 08/15/22 20:30 98 08/15/22 19:50 100 08/15/22 19:30 100 08/15/22 19:15 100 08/15/22 19:00 100 08/15/22 18:45 100 08/15/22 18:30 99 08/15/22 18:17 97 08/15/22 15:39 99 08/15/22 12:42 96 Intake and Output 08/15/22 08/16/22 08/16/22 22:59 06:59 14:59 Intake Total 1530 1065 315 Output Total 2240 380 80 Balance -710 685 235 Intake: IV 1210 1065 155 ACETAMINOPHEN IV (For NPO 100 100 ) 1,000 mg In Empty Bag 1 bag @ 400 mls/hr IVPB Q6H [facility] Rx#:[id number] Dextrose 5% in Water 1, 160 640 80 000 ml @ 80 mls/hr IV . [id number] [facility] with Sodium Bicarb (1 Meq/ml) 150 ml Rx#:[id number] Piperacillin-Tazobactam 3 50 125 75 .375 gm In Sodium Chloride 0.9% 100 ml @ 25 mls/hr IVPB Q8H [facility] Rx#: [id number] metroNIDAZOLE-NS PMX 500 200 mg In Saline 1 100ml.bag @ 100 mls/hr IVPB Q6H [facility] Rx#:[id number] Intake, IV Titration 320 160 Amount Dextrose 5% in Water 1, 320 000 ml @ 80 mls/hr IV . [id number] [facility] with Sodium Bicarb (1 Meq/ml) 150 ml Rx#:[id number] Sodium Chloride 0.9% 1, 160 000 ml @ 80 mls/hr IV . [id number] [facility] Rx#:[id number] Output: Urine 2215 380 80 Estimated Blood Loss 25 Other: Voiding Method Indwelling Catheter Indwelling Catheter Indwelling Catheter Weight 59.9 kg GENERAL EXAM: Alert, pleasant 61-year-old male patient, on room air, comfortable in no apparent distress. HEAD: Normocephalic. EYES: Normal reaction of pupils, equal size. NOSE: Clear with pink turbinates. THROAT: No erythema or exudates. NECK: No masses, no JVD. CHEST: No chest wall deformity. LUNGS: Equal air entry with no crackles, wheeze, rhonchi or dullness. CVS: S1 and S2 normal with no audible murmur, regular rhythm. ABDOMEN: Colostomy intact. No hepatosplenomegaly, normal bowel sounds, no guarding or rigidity. SPINE: No scoliosis or deformity SKIN: No rashes CENTRAL NERVOUS SYSTEM: No focal deficits, tone is normal in all 4 extremities. EXTREMITIES: There is no peripheral edema. No clubbing, no cyanosis. Martha pheral pulses are intact. Results - Laboratory Findings CBC and BMP: 08/16/22 06:01 08/16/22 06:01 PT/INR, D-dimer PT 12.1 sec (9.0-12.0) H 08/14/22 21:15 INR 1.1 (<1.2) 08/14/22 21:15 Abnormal lab findings: Abnormal Labs 08/14/22 08/14/22 08/14/22 16:56 17:34 18:35 WBC 22.2 H RBC 3.71 L Hgb 8.6 L D Hct 30.2 L MCV MCH 23.3 L MCHC 28.6 L RDW 19.4 H Plt Count 827 H Immature Gran # Neutrophils # 18.5 H Lymphocytes # Monocytes # 1.6 H PT Carbon Dioxide 14 L BUN 64 H Creatinine 6.37 H Est GFR (CKD-EPI)AfAm Est GFR (CKD-EPI)NonAf Glucose 109 H Calcium 8.1 L Iron TIBC % Saturation Transferrin Ferritin ALT Alkaline Phosphatase Total Protein 5.0 L Albumin 2.4 L Albumin/Globulin Ratio Carcinoembryonic Ag Vitamin B12 Ur Leukocyte Esterase Small H Urine Bacteria Rare H Urine Mucus Rare H 08/14/22 08/15/22 08/15/22 21:15 05:37 05:37 WBC 21.53 H RBC 3.29 L Hgb 7.7 L Hct 25.8 L MCV 78.4 L MCH 23.4 L MCHC 29.8 L RDW 22.2 H Plt Count 894 H Immature Gran # 0.16 H Neutrophils # 18.64 H Lymphocytes # Monocytes # 1.51 H PT 12.1 H Carbon Dioxide 19.9 L BUN 41.0 H Creatinine 3.1 H Est GFR (CKD-EPI)AfAm 24.1 L Est GFR (CKD-EPI)NonAf 20.8 L Glucose Calcium 8.6 L Iron TIBC % Saturation Transferrin Ferritin ALT 7 L Alkaline Phosphatase 128 H Total Protein 5.1 L Albumin 2.6 L Albumin/Globulin Ratio 1.01 L Carcinoembryonic Ag Vitamin B12 Ur Leukocyte Esterase Urine Bacteria Urine Mucus 08/16/22 08/16/22 08/16/22 06:01 06:01 06:01 WBC 25.5 H RBC 3.51 L Hgb 8.3 L Hct 29.8 L MCV MCH 23.5 L MCHC 27.7 L RDW 19.4 H Plt Count 761 H Immature Gran # Neutrophils # 23.5 H Lymphocytes # 0.7 L Monocytes # 1.1 H PT Carbon Dioxide BUN 24 H Creatinine Est GFR (CKD-EPI)AfAm Est GFR (CKD-EPI)NonAf Glucose 134 H Calcium 8.3 L Iron TIBC % Saturation Transferrin Ferritin ALT Alkaline Phosphatase Total Protein Albumin Albumin/Globulin Ratio Carcinoembryonic Ag 1333.0 H Vitamin B12 Ur Leukocyte Esterase Urine Bacteria Urine Mucus 08/16/22 06:01 WBC RBC Hgb Hct MCV MCH MCHC RDW Plt Count Immature Gran # Neutrophils # Lymphocytes # Monocytes # PT Carbon Dioxide BUN Creatinine Est GFR (CKD-EPI)AfAm Est GFR (CKD-EPI)NonAf Glucose Calcium Iron 8 L TIBC 141 L % Saturation 5.40 L Transferrin 101.0 L Ferritin 438.0 H ALT Alkaline Phosphatase Total Protein Albumin Albumin/Globulin Ratio Carcinoembryonic Ag Vitamin B12 1223.0 H Ur Leukocyte Esterase Urine Bacteria Urine Mucus - Diagnostic Findings Chest x-ray: image reviewed (No acute cardiopulmonary process) Assessment and Plan Assessment: Abdominal pain and diarrhea secondary to a presacral abscess. Status post exploratory laparotomy with drainage of presacral abscess, partial colectomy with colostomy. Postoperative day #1 History of colon cancer with liver metastasis, receiving chemotherapy Previous history of colon resection with colostomy and subsequent reversal History of the liver resection History of valve replacement Plan: The patient was seen and evaluated Chest x-ray, labs and medications reviewed Discontinue bicarbonate drip, add normal saline at 80 MLS per hour Continue Flagyl, Zosyn Encourage increased use the incentive spirometer Currently stable and on room air Cleared for transfer out of the ICU We will continue to follow and make further recommendations based on his clinical status I have personally seen and examined the patient, performed the documentation and the assessment and plan as written. Number of minutes spent on the visit: 20
--- NOTE | 2022-08-16 11:18 | P.PN ---
Subjective Patient is seen for follow-up for acute kidney injury. Patient has underlying history of rectal cancer status post surgical resection previously. He was admitted to the hospital with significant abdominal pain with CAT scan showing findings of possible perforated rectum. He was taken to the OR yesterday on 08/15/2022 and had explorative laparotomy with drainage of presacral abscess, partial colectomy with colostomy. Serum creatinine was 6.37 on initial admission decreased to 3.1 yesterday and today it is at 1.09. CAT scan showed evidence of bilateral mild hydronephrosis. A Penn catheter was placed yesterday. About 1 L of urine was obtained on initial catheter placement. This morning patient is doing well he is seen in the ICU much more comfortable. Urine output 30-80 mL an hour. Maintained on IV fluids. Objective - Vital Signs Vital signs: Vital Signs Temp 98.1 F 08/16/22 08:00 Pulse 90 08/16/22 09:30 Resp 14 08/16/22 09:30 BP 126/100 08/16/22 09:30 Pulse Ox 95 08/16/22 09:30 FiO2 21 08/16/22 07:37 Intake & Output 08/15/22 08/16/22 08/16/22 18:59 06:59 18:59 Intake Total 1220 1375 315 Output Total 1125 1495 80 Balance 95 -120 235 Weight 62.596 kg 59.9 kg Intake: IV 900 1375 155 ACETAMINOPHEN IV (For NPO 200 ) 1,000 mg In Empty Bag 1 bag @ 400 mls/hr IVPB Q6H [facility] Rx#:[id number] Dextrose 5% in Water 1, 800 80 000 ml @ 80 mls/hr IV . [id number] [facility] with Sodium Bicarb (1 Meq/ml) 150 ml Rx#:[id number] Piperacillin-Tazobactam 3 175 75 .375 gm In Sodium Chloride 0.9% 100 ml @ 25 mls/hr IVPB Q8H [facility] Rx#: [id number] metroNIDAZOLE-NS PMX 500 200 mg In Saline 1 100ml.bag @ 100 mls/hr IVPB Q6H [facility] Rx#:[id number] Intake, IV Titration 320 160 Amount Dextrose 5% in Water 1, 320 000 ml @ 80 mls/hr IV . [id number] [facility] with Sodium Bicarb (1 Meq/ml) 150 ml Rx#:[id number] Sodium Chloride 0.9% 1, 160 000 ml @ 80 mls/hr IV . [id number] [facility] Rx#:[id number] Output: Urine 1100 1495 80 Estimated Blood Loss 25 Other: Voiding Method Indwelling Catheter Indwelling Catheter Indwelling Catheter - Exam Awake, comfortable, not in any acute distress Examination of the heart S1 and S2 Examination lungs bilateral breath sounds are heard Abdomen is soft with intact dressing Examination lower extremities shows no evidence of edema WEASAND TRIMMER exam grossly intact - Labs CBC & Chem 7: 08/16/22 06:01 08/16/22 06:01 Labs: Abnormal Lab Results - Last 24 Hours (Table) 08/16/22 08/16/22 08/16/22 Range/Units 06:01 06:01 06:01 WBC 25.5 H (3.8-10.6) k/uL RBC 3.51 L (4.30-5.90) m/uL Hgb 8.3 L (13.0-17.5) gm/dL Hct 29.8 L (39.0-53.0) % MCH 23.5 L (25.0-35.0) pg MCHC 27.7 L (31.0-37.0) g/dL RDW 19.4 H (11.5-15.5) % Plt Count 761 H (150-450) k/uL Neutrophils # 23.5 H (1.3-7.7) k/uL Lymphocytes # 0.7 L (1.0-4.8) k/uL Monocytes # 1.1 H (0-1.0) k/uL BUN 24 H (9-20) mg/dL Glucose 134 H (74-99) mg/dL Calcium 8.3 L (8.4-10.2) mg/dL Iron (65-175) ug/dL TIBC (228-460) ug/dL % Saturation (15.00-50.00) Transferrin (204.0-354.0) mg/dL Ferritin (22.0-322.0) ng/mL Carcinoembryonic Ag 1333.0 H (0.0-4.9) ng/mL Vitamin B12 (200.0-944.0) pg/mL 08/16/22 Range/Units 06:01 WBC (3.8-10.6) k/uL RBC (4.30-5.90) m/uL Hgb (13.0-17.5) gm/dL Hct (39.0-53.0) % MCH (25.0-35.0) pg MCHC (31.0-37.0) g/dL RDW (11.5-15.5) % Plt Count (150-450) k/uL Neutrophils # (1.3-7.7) k/uL Lymphocytes # (1.0-4.8) k/uL Monocytes # (0-1.0) k/uL BUN (9-20) mg/dL Glucose (74-99) mg/dL Calcium (8.4-10.2) mg/dL Iron 8 L (65-175) ug/dL TIBC 141 L (228-460) ug/dL % Saturation 5.40 L (15.00-50.00) Transferrin 101.0 L (204.0-354.0) mg/dL Ferritin 438.0 H (22.0-322.0) ng/mL Carcinoembryonic Ag (0.0-4.9) ng/mL Vitamin B12 1223.0 H (200.0-944.0) pg/mL Microbiology - Last 24 Hours (Table) 08/14/22 21:15 Blood Culture - Preliminary Blood No Growth after 24 hours 08/14/22 18:34 Urine Culture - Preliminary Urine,Catheterized Assessment and Plan Assessment: 1. Acute kidney injury obstructive uropathy as well as prerenal currently improving with IV hydration and Penn catheter placement. 2. Abdominal pain with with possibility of perforated rectum being followed by surgery and status post explorative laparotomy with drainage of presacral abscess and partial colectomy with colostomy 3. History of rectal cancer status post surgery and maintained on chemotherapy 4. Bilateral hydronephrosis status post Penn catheter placement 5. Metabolic acidosis secondary to acute kidney injury currently improving Plan: Continue with IV hydration Avoid nephrotoxic agents Continue with Penn catheter Repeat labs in a.m.
--- NOTE | 2022-08-16 12:57 | P.PN ---
Subjective Progress Note Date: 08/16/22 This is a 61-year-old male who was recently admitted with abdominal pain with possible rectal perforation and sepsis, present on admission and is being closely monitored. Patient also was found to have significant renal failure with multiple medical consultations including oncology, infectious disease, general surgery following. Patient is postop drainage of the presacral abscess along with colectomy and end colostomy and is currently in the ICU under close observation. Nephrology following and kidney functions much improved with a creatinine of 1.09 which was 3 yesterday other labs reviewed including a WBC of 25.5 and hemoglobin is stable at 8.3. Patient is afebrile denies chest pain or shortness of breath. Patient reports his abdomen feels much improved although continues with weakness. Recommend PT/OT to evaluate the patient. Patient is currently being started on clear liquids and to advance slowly per surgery recommendations as tolerated. Review of systems: Constitutional: reports of fatigue, no reports of fever, or chills Cardiovascular: No reports of chest pain or palpitations Respiratory: No reports of shortness of breath or cough GI: No reports of nausea, no reports of of vomiting, no reports of gas or bowel movement yet : No reports of dysuria or retention Neurovascular: reports of generalized weakness All medications have been reviewed Active Medications Chlorpromazine HCl (Chlorpromazine 25 Mg Tab) 50 mg PO TID PRN PRN Reason: hiccups Heparin Sodium (Porcine) (Heparin Sodium,Porcine/Pf 5,000 Unit/0.5 Ml Syringe) 5,000 unit SQ Q12HR [facility] Last Admin: 08/16/22 09:25 Dose: 5,000 unit Hydromorphone HCl (Hydromorphone 1 Mg/Ml 1 Ml Syringe) 1 mg IVP Q2H PRN PRN Reason: Moderate to Severe Pain Last Admin: 08/16/22 02:55 Dose: 1 mg Piperacillin Sod/Tazobactam (Sod 3.375 gm/ Sodium Chloride) 100 mls @ 25 mls/hr IVPB Q8H [facility]; Protocol Last Admin: 08/16/22 12:32 Dose: 25 mls/hr Metronidazole 500 mg/ IV (Solution) 100 mls @ 100 mls/hr IVPB Q6H [facility]; Protocol Last Admin: 08/16/22 11:17 Dose: 100 mls/hr Acetaminophen 1,000 mg/ IV (Solution) 100 mls @ 400 mls/hr IVPB Q6H [facility] Stop: 08/16/22 15:14 Last Admin: 08/16/22 09:27 Dose: 400 mls/hr Sodium Chloride (Saline 0.9%) 1,000 mls @ 80 mls/hr IV .[id number] [facility] Last Admin: 08/16/22 09:26 Dose: 80 mls/hr Mirtazapine (Mirtazapine 15 Mg Tab) 7.5 mg PO DAILY [facility] Last Admin: 08/16/22 09:25 Dose: 7.5 mg Naloxone HCl (Naloxone 0.4 Mg/Ml 1 Ml Vial) 0.2 mg IV Q2M PRN PRN Reason: Opioid Reversal Ondansetron HCl (Ondansetron 4 Mg/2 Ml Vial) 4 mg IVP Q6HR PRN PRN Reason: Nausea And Vomiting Last Admin: 08/16/22 12:31 Dose: 4 mg Oxycodone/Acetaminophen (Oxycodone-Apap 5-325mg 1 Each Tab) 1 each PO Q4HR PRN PRN Reason: Pain Pantoprazole Sodium (Pantoprazole 40 Mg/10 Ml Vial) 40 mg IVP BID [facility] Last Admin: 08/16/22 09:25 Dose: 40 mg PHYSICAL EXAMINATION: GENERAL: The patient is alert and oriented x4, Well developed, well nourished. HEENT: Pupils are round and equally reacting to light. EOMI. no scleral icterus. No conjunctival pallor. Normocephalic, atraumatic. No pharyngeal erythema. No thyromegaly. CARDIOVASCULAR: S1 and S2 muffled PULMONARY: diminished breath sounds bilaterally with no wheezing or rhonchi noted. ABDOMEN: soft. Nontender on exam. non-distended, sluggish bowel sounds. No palpable organomegaly. MUSCULOSKELETAL: No joint swelling or deformity. EXTREMITIES: No cyanosis, clubbing, or pedal edema. NEUROLOGICAL: Gross neurological examination did not reveal any focal deficits. Diffuse weakness SKIN: No rashes. Assessment: Presacral abscess with perforated rectum Status post exploratory laparotomy with drainage of the presacral abscess along with partial colectomy with colostomy Metastatic rectal cancer Sepsis, present on admission secondary to presacral abscess Urinary tract infection, present on admission Increased WBC acute renal failure, possibly multifactorial secondary to obstructive uropathy and prerenal, improving Gastroesophageal reflux disease History of prostate disorder GI prophylaxis DVT prophylaxis Full code Plan: Recommend to continue with current medications and management with multiple medical consultations including general surgery, nephrology, oncology, and infectious disease following. Patient is postop day #1 in the ICU for close monitoring status post laparoscopic drainage of the presacral abscess with partial colectomy and colostomy. Patient is currently maintained on clear liquids and recommend to continue slowly advancing as tolerated per surgery recommendations. Bowel activity as of yet and encouraged increased activity as tolerated with PT/OT therapy evaluation. WBC continues to be elevated and patient is maintained on Flagyl and Zosyn and will continue with anxiety following closely. Nephrology also following and patient is maintained on gentle IV hydration with a significant improvement since Penn catheter placement and continued fluids as creatinine is down to 1.09 today. Patient reports to feeling much improved and would also recommend incentive spirometer, continuing with indwelling Penn catheter, and PT/OT evaluation once more stable. Recommend follow-up labs in the a.m and will continue to follow along closely with general surgery during hospitalization. Thank you kindly for this consultation. The impression and plan of care has been dictated by Johana Banks, nurse practitioner as directed. Dr. Marvel MD I have performed a history and examination and MDM of this patient, discussed the same with the dictator, and agree with the dictator's assessment and plan as written ,documented as a scribe. Based on total visit time, I have performed more than 50% of the visit. Any additional findings or plans will be noted. Objective - Vital Signs Vital signs: Vital Signs Temp 98.1 F 08/16/22 08:00 Pulse 97 08/16/22 10:30 Resp 75 H 08/16/22 11:00 BP 118/85 08/16/22 11:00 Pulse Ox 95 08/16/22 11:00 FiO2 21 08/16/22 07:37 Intake & Output 08/15/22 08/16/22 08/16/22 18:59 06:59 18:59 Intake Total 1220 1375 425 Output Total 1125 1495 150 Balance 95 -120 275 Weight 62.596 kg 59.9 kg Intake: IV 900 1375 105 ACETAMINOPHEN IV (For NPO 200 ) 1,000 mg In Empty Bag 1 bag @ 400 mls/hr IVPB Q6H [facility] Rx#:[id number] Dextrose 5% in Water 1, 800 80 000 ml @ 80 mls/hr IV . [id number] [facility] with Sodium Bicarb (1 Meq/ml) 150 ml Rx#:[id number] Piperacillin-Tazobactam 3 175 25 .375 gm In Sodium Chloride 0.9% 100 ml @ 25 mls/hr IVPB Q8H [facility] Rx#: [id number] metroNIDAZOLE-NS PMX 500 200 mg In Saline 1 100ml.bag @ 100 mls/hr IVPB Q6H [facility] Rx#:[id number] Intake, IV Titration 320 320 Amount Dextrose 5% in Water 1, 320 000 ml @ 80 mls/hr IV . [id number] [facility] with Sodium Bicarb (1 Meq/ml) 150 ml Rx#:[id number] Sodium Chloride 0.9% 1, 320 000 ml @ 80 mls/hr IV . [id number] [facility] Rx#:[id number] Output: Urine 1100 1495 150 Estimated Blood Loss 25 Other: Voiding Method Indwelling Catheter Indwelling Catheter Indwelling Catheter - Labs CBC & Chem 7: 08/16/22 06:01 08/16/22 06:01 Labs: Abnormal Lab Results - Last 24 Hours (Table) 08/16/22 08/16/22 08/16/22 Range/Units 06:01 06:01 06:01 WBC 25.5 H (3.8-10.6) k/uL RBC 3.51 L (4.30-5.90) m/uL Hgb 8.3 L (13.0-17.5) gm/dL Hct 29.8 L (39.0-53.0) % MCH 23.5 L (25.0-35.0) pg MCHC 27.7 L (31.0-37.0) g/dL RDW 19.4 H (11.5-15.5) % Plt Count 761 H (150-450) k/uL Neutrophils # 23.5 H (1.3-7.7) k/uL Lymphocytes # 0.7 L (1.0-4.8) k/uL Monocytes # 1.1 H (0-1.0) k/uL BUN 24 H (9-20) mg/dL Glucose 134 H (74-99) mg/dL Calcium 8.3 L (8.4-10.2) mg/dL Iron (65-175) ug/dL TIBC (228-460) ug/dL % Saturation (15.00-50.00) Transferrin (204.0-354.0) mg/dL Ferritin (22.0-322.0) ng/mL Carcinoembryonic Ag 1333.0 H (0.0-4.9) ng/mL Vitamin B12 (200.0-944.0) pg/mL 08/16/22 Range/Units 06:01 WBC (3.8-10.6) k/uL RBC (4.30-5.90) m/uL Hgb (13.0-17.5) gm/dL Hct (39.0-53.0) % MCH (25.0-35.0) pg MCHC (31.0-37.0) g/dL RDW (11.5-15.5) % Plt Count (150-450) k/uL Neutrophils # (1.3-7.7) k/uL Lymphocytes # (1.0-4.8) k/uL Monocytes # (0-1.0) k/uL BUN (9-20) mg/dL Glucose (74-99) mg/dL Calcium (8.4-10.2) mg/dL Iron 8 L (65-175) ug/dL TIBC 141 L (228-460) ug/dL % Saturation 5.40 L (15.00-50.00) Transferrin 101.0 L (204.0-354.0) mg/dL Ferritin 438.0 H (22.0-322.0) ng/mL Carcinoembryonic Ag (0.0-4.9) ng/mL Vitamin B12 1223.0 H (200.0-944.0) pg/mL Microbiology - Last 24 Hours (Table) 08/14/22 21:15 Blood Culture - Preliminary Blood No Growth after 24 hours 08/14/22 18:34 Urine Culture - Preliminary Urine,Catheterized
--- NOTE | 2022-08-16 13:12 | P.PN ---
Subjective Progress Note Date: 08/16/22 CHIEF COMPLAINT: Presacral abscess HISTORY OF PRESENT ILLNESS: Patient is postop day #1 status post exploratory laparotomy with drainage of presacral abscess, partial colectomy with colostomy. Patient tolerated surgery well. He is currently in the ICU and on 2 L oxygen satting at 75%. He did have fevers yesterday afternoon and evening. Currently is afebrile. WBC to go from 21.53-25.5 hemoglobin is 8.3 platelets 761 sodium is 141 potassium is 5.1 creatinine is down from 3.1-1.09 total iron is 8. CEA level is elevated. HOLDEN drain with dark output 40 mL. Patient denies any nausea vomiting. Denies any abdominal pain. PHYSICAL EXAM: VITAL SIGNS: Reviewed. GENERAL: Well-developed in no acute distress. HEENT: No sclera icterus. Extraocular movements grossly intact. Moist buccal mucosa. Head is atraumatic, normocephalic. ABDOMEN: Soft. Nondistended. Nontender. Incisional dressing clean dry and intact. Ostomy with pink stoma. No drainage. NEUROLOGIC: Alert and oriented. Cranial nerves II through XII grossly intact. ASSESSMENT: 1. Presacral abscess status post exploratory laparotomy with drainage of presacral abscess, partial colectomy with colostomy 2. History of metastatic rectal cancer with prior resection and resection of liver 3. History of leak at rectal surgical site requiring colostomy and then reversal of colostomy 4. Urinary retention with mild bilateral hydronephrosis 5. Acute kidney injury followed by nephrology PLAN: -Continue clear liquid diet and advance as tolerated -Continue antibiotics per ID service -Continue pain medication as needed -Continue to monitor CBC -Continue monitoring HOLDEN drain output -Encouraged patient to use incentive spirometer -DVT prophylaxis subcu heparin and GI prophylaxis Protonix Physician Spanish Linguist note has been reviewed by physician. Signing provider agrees with the documented findings, assessment, and plan of care. I have personally seen and examined the patient, reviewed the SECONDS HANDLER /PAs history, exam and MDM and agree with the assessment and plan as written. Based on total visit time, I have performed more than 50% of the visit. As above: Patient doing better today. He says his pain that was present preop eratively is improved. HOLDEN drain brownish in color which is expected. No ostomy function thus far. Continue analgesics. Gradually increase activity. Stay on clears for now. Objective - Vital Signs Vital signs: Vital Signs Temp 98.1 F 08/16/22 08:00 Pulse 97 08/16/22 10:30 Resp 75 H 08/16/22 11:00 BP 118/85 08/16/22 11:00 Pulse Ox 95 08/16/22 11:00 FiO2 21 08/16/22 07:37 Intake & Output 08/15/22 08/16/22 08/16/22 18:59 06:59 18:59 Intake Total 1220 1375 425 Output Total 1125 1495 150 Balance 95 -120 275 Weight 62.596 kg 59.9 kg Intake: IV 900 1375 105 ACETAMINOPHEN IV (For NPO 200 ) 1,000 mg In Empty Bag 1 bag @ 400 mls/hr IVPB Q6H [facility] Rx#:[id number] Dextrose 5% in Water 1, 800 80 000 ml @ 80 mls/hr IV . [id number] [facility] with Sodium Bicarb (1 Meq/ml) 150 ml Rx#:[id number] Piperacillin-Tazobactam 3 175 25 .375 gm In Sodium Chloride 0.9% 100 ml @ 25 mls/hr IVPB Q8H [facility] Rx#: [id number] metroNIDAZOLE-NS PMX 500 200 mg In Saline 1 100ml.bag @ 100 mls/hr IVPB Q6H [facility] Rx#:[id number] Intake, IV Titration 320 320 Amount Dextrose 5% in Water 1, 320 000 ml @ 80 mls/hr IV . [id number] [facility] with Sodium Bicarb (1 Meq/ml) 150 ml Rx#:[id number] Sodium Chloride 0.9% 1, 320 000 ml @ 80 mls/hr IV . [id number] [facility] Rx#:[id number] Output: Urine 1100 1495 150 Estimated Blood Loss 25 Other: Voiding Method Indwelling Catheter Indwelling Catheter Indwelling Catheter - Labs CBC & Chem 7: 08/16/22 06:01 08/16/22 06:01 Labs: Abnormal Lab Results - Last 24 Hours (Table) 08/16/22 08/16/22 08/16/22 Range/Units 06:01 06:01 06:01 WBC 25.5 H (3.8-10.6) k/uL RBC 3.51 L (4.30-5.90) m/uL Hgb 8.3 L (13.0-17.5) gm/dL Hct 29.8 L (39.0-53.0) % MCH 23.5 L (25.0-35.0) pg MCHC 27.7 L (31.0-37.0) g/dL RDW 19.4 H (11.5-15.5) % Plt Count 761 H (150-450) k/uL Neutrophils # 23.5 H (1.3-7.7) k/uL Lymphocytes # 0.7 L (1.0-4.8) k/uL Monocytes # 1.1 H (0-1.0) k/uL BUN 24 H (9-20) mg/dL Glucose 134 H (74-99) mg/dL Calcium 8.3 L (8.4-10.2) mg/dL Iron (65-175) ug/dL TIBC (228-460) ug/dL % Saturation (15.00-50.00) Transferrin (204.0-354.0) mg/dL Ferritin (22.0-322.0) ng/mL Carcinoembryonic Ag 1333.0 H (0.0-4.9) ng/mL Vitamin B12 (200.0-944.0) pg/mL 08/16/22 Range/Units 06:01 WBC (3.8-10.6) k/uL RBC (4.30-5.90) m/uL Hgb (13.0-17.5) gm/dL Hct (39.0-53.0) % MCH (25.0-35.0) pg MCHC (31.0-37.0) g/dL RDW (11.5-15.5) % Plt Count (150-450) k/uL Neutrophils # (1.3-7.7) k/uL Lymphocytes # (1.0-4.8) k/uL Monocytes # (0-1.0) k/uL BUN (9-20) mg/dL Glucose (74-99) mg/dL Calcium (8.4-10.2) mg/dL Iron 8 L (65-175) ug/dL TIBC 141 L (228-460) ug/dL % Saturation 5.40 L (15.00-50.00) Transferrin 101.0 L (204.0-354.0) mg/dL Ferritin 438.0 H (22.0-322.0) ng/mL Carcinoembryonic Ag (0.0-4.9) ng/mL Vitamin B12 1223.0 H (200.0-944.0) pg/mL Microbiology - Last 24 Hours (Table) 08/14/22 21:15 Blood Culture - Preliminary Blood No Growth after 24 hours 08/14/22 18:34 Urine Culture - Preliminary Urine,Catheterized
--- NOTE | 2022-08-16 18:25 | P.PN ---
Subjective Progress Note Date: 08/16/22 Principal diagnosis: presacral abscess, metastatic rectal cancer Pt seen today in ICU post op day 1, he looks significantly better than he did yesterday. Patient is reporting significant improvement in abdominal pain. no fevers, chills, nausea. Objective - Vital Signs Vital signs: Vital Signs Temp 98.1 F 08/16/22 08:00 Pulse 96 08/16/22 14:00 Resp 12 08/16/22 14:00 BP 127/92 08/16/22 14:00 Pulse Ox 95 08/16/22 14:00 FiO2 21 08/16/22 07:37 Intake & Output 08/15/22 08/16/22 08/16/22 18:59 06:59 18:59 Intake Total 1220 1375 425 Output Total 1125 1495 150 Balance 95 -120 275 Weight 62.596 kg 59.9 kg Intake: IV 900 1375 105 ACETAMINOPHEN IV (For NPO 200 ) 1,000 mg In Empty Bag 1 bag @ 400 mls/hr IVPB Q6H [facility] Rx#:[id number] Dextrose 5% in Water 1, 800 80 000 ml @ 80 mls/hr IV . [id number] [facility] with Sodium Bicarb (1 Meq/ml) 150 ml Rx#:[id number] Piperacillin-Tazobactam 3 175 25 .375 gm In Sodium Chloride 0.9% 100 ml @ 25 mls/hr IVPB Q8H [facility] Rx#: [id number] metroNIDAZOLE-NS PMX 500 200 mg In Saline 1 100ml.bag @ 100 mls/hr IVPB Q6H [facility] Rx#:[id number] Intake, IV Titration 320 320 Amount Dextrose 5% in Water 1, 320 000 ml @ 80 mls/hr IV . [id number] [facility] with Sodium Bicarb (1 Meq/ml) 150 ml Rx#:[id number] Sodium Chloride 0.9% 1, 320 000 ml @ 80 mls/hr IV . [id number] [facility] Rx#:[id number] Output: Urine 1100 1495 150 Estimated Blood Loss 25 Other: Voiding Method Indwelling Catheter Indwelling Catheter Indwelling Catheter - Constitutional General appearance: Present: average body habitus, no acute distress, thin - EENT Eyes: Present: anicteric sclerae, EOMI ENT: Present: hearing grossly normal - Respiratory Respiratory: bilateral: CTA - Cardiovascular Rhythm: regular Heart sounds: normal: S1, S2 Abnormal Heart Sounds: Absent: systolic murmur, diastolic murmur, rub, S3 Gallop, S4 Gallop, click, other - Peripheral edema leg Peripheral Edema: bilateral: Trace - Gastrointestinal General gastrointestinal: Present: absent bowel sounds, soft. Absent: decreased bowel sounds, distended, hepatomegaly, hyperactive bowel sounds, normal bowel sounds, organomegaly, rigid, scaphoid, splenomegaly, tenderness, umbilical hernia, ventral hernia - Integumentary Integumentary: Present: normal - Neurologic Neurologic: Present: CNII-XII intact - Musculoskeletal Musculoskeletal: Present: generalized weakness - Psychiatric Psychiatric: Present: A&O x's 3, appropriate affect, intact judgment & insight - Labs CBC & Chem 7: 08/16/22 06:01 08/16/22 06:01 Labs: Abnormal Lab Results - Last 24 Hours (Table) 08/16/22 08/16/22 08/16/22 Range/Units 06:01 06:01 06:01 WBC 25.5 H (3.8-10.6) k/uL RBC 3.51 L (4.30-5.90) m/uL Hgb 8.3 L (13.0-17.5) gm/dL Hct 29.8 L (39.0-53.0) % MCH 23.5 L (25.0-35.0) pg MCHC 27.7 L (31.0-37.0) g/dL RDW 19.4 H (11.5-15.5) % Plt Count 761 H (150-450) k/uL Neutrophils # 23.5 H (1.3-7.7) k/uL Lymphocytes # 0.7 L (1.0-4.8) k/uL Monocytes # 1.1 H (0-1.0) k/uL BUN 24 H (9-20) mg/dL Glucose 134 H (74-99) mg/dL Calcium 8.3 L (8.4-10.2) mg/dL Iron (65-175) ug/dL TIBC (228-460) ug/dL % Saturation (15.00-50.00) Transferrin (204.0-354.0) mg/dL Ferritin (22.0-322.0) ng/mL Carcinoembryonic Ag 1333.0 H (0.0-4.9) ng/mL Vitamin B12 (200.0-944.0) pg/mL 08/16/22 Range/Units 06:01 WBC (3.8-10.6) k/uL RBC (4.30-5.90) m/uL Hgb (13.0-17.5) gm/dL Hct (39.0-53.0) % MCH (25.0-35.0) pg MCHC (31.0-37.0) g/dL RDW (11.5-15.5) % Plt Count (150-450) k/uL Neutrophils # (1.3-7.7) k/uL Lymphocytes # (1.0-4.8) k/uL Monocytes # (0-1.0) k/uL BUN (9-20) mg/dL Glucose (74-99) mg/dL Calcium (8.4-10.2) mg/dL Iron 8 L (65-175) ug/dL TIBC 141 L (228-460) ug/dL % Saturation 5.40 L (15.00-50.00) Transferrin 101.0 L (204.0-354.0) mg/dL Ferritin 438.0 H (22.0-322.0) ng/mL Carcinoembryonic Ag (0.0-4.9) ng/mL Vitamin B12 1223.0 H (200.0-944.0) pg/mL Microbiology - Last 24 Hours (Table) 08/14/22 18:34 Urine Culture - Final Urine,Catheterized 08/14/22 21:15 Blood Culture - Preliminary Blood No Growth after 24 hours Assessment and Plan (1) Abscess, sacrum Current Visit: Yes Status: Acute Priority: High Code(s): M46.28 - OSTEOMYELITIS OF VERTEBRA, SACRAL AND SACROCOCCYGEAL REGION SNOMED Code(s): 895156189 (2) Rectal adenocarcinoma Current Visit: No Status: Chronic Priority: Medium Code(s): C20 - MALIGNANT NEOPLASM OF RECTUM SNOMED Code(s): 213837720 (3) Anemia Current Visit: Yes Status: Chronic Priority: Medium Code(s): D64.9 - ANEMIA, UNSPECIFIED SNOMED Code(s): 154663322 Plan: Reviewed operative note. Patient is doing very well postop. Stoma looks good on visual inspection, no significant pain with palpation around the area. Thorazine ordered for hiccups. Hold any chemo treatment for about 4-6 weeks post op. Appointments the oncologist office were adjusted. Pt feeling much better today. He would like to move forward and do some rehabilitation. He has a follow-up with Dr. Andrade next week and if he has any questions about treatment or prognosis he can discuss with him at that time. Patient is in agreement with that plan. Progressive anemia. CBC monitoring. Iron studies most suggestive of inflammation. This will be rechecked after patient has recovered from abscess and surgery. CEA in office about 1 month ago was greater than 3000. Currently 1333
[2022-08-17] MEDS: metroNIDAZOLE-NS PMX 500 MG in SALINE 1 100ML.BAG IVPB SCH ×5 (00:47→23:14)
[2022-08-17] MEDS: SODIUM CHLORIDE 0.9% 1,000 ML IV SCH ×3 (00:47→23:13)
[2022-08-17] MEDS: HYDROmorphone 1 MG/ML 1 ML SYRINGE IVP PRN ×3 (01:59→13:49)
[2022-08-17] MEDS: PIPERACILLIN-TAZOBACTAM 3.375 GM in SODIUM CHLORIDE 0.9% 100 ML IVPB SCH ×3 (04:52→20:14)
[2022-08-17 07:54] LABS: African American GFR (CKD) >90 (>60 ml/min/1.73 sqM); Anion Gap 7 mmol/L; Blood Urea Nitrogen 19 mg/dL (9-20); Calcium 8.3 mg/dL (8.4-10.2); Carbon Dioxide 22 mmol/L (22-30); Chloride 110 mmol/L (98-107); Glucose 83 mg/dL (74-99); Non-African American GFR(CKD) >90 (>60 ml/min/1.73 sqM); Sodium 139 mmol/L (137-145)
[2022-08-17 08:00] LABS: Anisocytosis Slight; HCT 28.9 % (39.0-53.0); HGB 7.9 gm/dL (13.0-17.5); Hypochromasia Marked; MCH 22.4 pg (25.0-35.0); MCHC 27.2 g/dL (31.0-37.0); MCV 82.4 fL (80.0-100.0); Mean Platelet Volume 9.2; Microcytosis Slight; Platelet Count 831 k/uL (150-450); Poikilocytosis Slight; RBC 3.51 m/uL (4.30-5.90); RDW 19.2 % (11.5-15.5); WBC 24.4 k/uL (3.8-10.6)
[2022-08-17 08:54] LABS: Lymphocytes # (M) 1.46 k/uL (1.0-4.8); Monocytes # (M) 1.46 k/uL (0-1.0); Neutrophils # (M) 21.47 k/uL (1.3-7.7); Neutrophils % (M) 88 %; Nucleated Red Blood Cells 0 /100 WBC (0-0); Total Cells Counted 100
[2022-08-17] MEDS: PANTOPRAZOLE 40 MG/10 ML VIAL IVP SCH ×2 (09:12→20:14)
[2022-08-17] MEDS: MIRTAZAPINE 15 MG TAB PO SCH (09:13)
[2022-08-17] MEDS: HEPARIN SODIUM,PORCINE/PF 5,000 UNIT/0.5 ML SYRINGE SQ SCH ×2 (09:13→20:14)
[2022-08-17 09:34] LABS: Target Cells Present
[2022-08-17] MEDS: ACETAMINOPHEN IV (For NPO) 1,000 MG in EMPTY BAG 1 BAG IVPB SCH ×3 (11:00→23:11)
--- NOTE | 2022-08-17 11:06 | P.PN ---
Subjective Progress Note Date: 08/17/22 This is a pleasant 61-year-old male patient with a known history of colon cancer with liver metastasis with previous colectomy and colostomy and subsequent reversal in January 2022. He had liver resection in 2019. He's also had cardiac valve replacement. His last round of chemotherapy was on 07/14/2022. He presented here to the emergency room on 08/14/2022 with lower abdominal discomfort right greater than left and diarrhea. CAT scan of the abdomen and pelvis revealed a blind ending pouch extending from the rectum to the presacral space which appeared larger compared to previous. Most consistent with perforated rectum. On 08/15/2022 he had undergone an exploratory laparotomy with drainage of the presacral abscess, partial colectomy with colostomy. There is some concerns regarding possible extended intubation and mechanical ventilation he was admitted to the intensive care unit. The patient was extubated however. He is awake and alert. He is maintaining O2 saturations in the 90s on room air. Currently on D5W with 3 A of bicarb at 80 mL per hour. He's also been maintained on Flagyl and Zosyn. Working well with the incentive spirometer. White count 25.5. Hemoglobin 8.3. Platelets 761. Sodium 141. Potassium 5.1. BUN 24. Creatinine 1.09. Carcinoembryonic antigen 1333. C. difficile screen was negative. The patient is seen today 08/17/2022 in follow-up in the intensive care unit. He is currently sitting up in bed. Awake and alert in no acute distress. Main taining good O2 saturations in the 90s on room air. He has normal saline at 80 MLS per hour. Postoperative day #2. He remains on Zosyn and Flagyl. Blood culture reveals no growth. Urine culture revealed no growth. White count 24.4. Hemoglobin 7.9. Sodium 139. Potassium 5.0. BUN 19. Creatinine 0.82. Objective - Vital Signs Vital signs: Vital Signs Temp 98.6 F 08/17/22 03:00 Pulse 96 08/17/22 04:00 Resp 8 L 08/17/22 04:00 BP 138/89 08/17/22 04:00 Pulse Ox 95 08/17/22 04:00 FiO2 21 08/16/22 07:37 Intake & Output 1008/17/22 08/17/22 18:59 06:59 18:59 Intake Total 425 Output Total 150 805 Balance 275 -805 Intake: IV 105 Dextrose 5% in Water 1, 80 000 ml @ 80 mls/hr IV . [id number] [facility]ENG with Sodium Bicarb (1 Meq/ml) 150 ml Rx#:[id number] Piperacillin-Tazobactam 3 25 .375 gm In Sodium Chloride 0.9% 100 ml @ 25 mls/hr IVPB Q8H [facility] Rx#: [id number] Intake, IV Titration 320 Amount Sodium Chloride 0.9% 1, 320 000 ml @ 80 mls/hr IV . [id number] [facility]ENG Rx#:[id number] Output: Drainage 5 Abdomen 5 Urine 150 800 Other: Voiding Method Indwelling Catheter Indwelling Catheter - Exam GENERAL EXAM: Alert, pleasant 61-year-old male patient, on room air, comfortable in no apparent distress. HEAD: Normocephalic. EYES: Normal reaction of pupils, equal size. NOSE: Clear with pink turbinates. THROAT: No erythema or exudates. NECK: No masses, no JVD. CHEST: No chest wall deformity. LUNGS: Equal air entry with no crackles, wheeze, rhonchi or dullness. CVS: S1 and S2 normal with no audible murmur, regular rhythm. ABDOMEN: Colostomy intact. No hepatosplenomegaly, normal bowel sounds, no guar ding or rigidity. SPINE: No scoliosis or deformity SKIN: No rashes CENTRAL NERVOUS SYSTEM: No focal deficits, tone is normal in all 4 extremities. EXTREMITIES: There is no peripheral edema. No clubbing, no cyanosis. Peripheral pulses are intact. - Labs CBC & Chem 7: 08/17/22 07:11 08/17/22 07:11 Labs: Abnormal Lab Results - Last 24 Hours (Table) 08/17/22 08/17/22 Range/Units 07:11 07:11 WBC 24.4 H (3.8-10.6) k/uL RBC 3.51 L (4.30-5.90) m/uL Hgb 7.9 L (13.0-17.5) gm/dL Hct 28.9 L (39.0-53.0) % MCH 22.4 L (25.0-35.0) pg MCHC 27.2 L (31.0-37.0) g/dL RDW 19.2 H (11.5-15.5) % Plt Count 831 H (150-450) k/uL Neutrophils # (Manual) 21.47 H (1.3-7.7) k/uL Monocytes # (Manual) 1.46 H (0-1.0) k/uL Chloride 110 H (98-107) mmol/L Calcium 8.3 L (8.4-10.2) mg/dL Microbiology - Last 24 Hours (Table) 08/14/22 21:15 Blood Culture - Preliminary Blood No Growth after 48 hours 08/14/22 18:34 Urine Culture - Final Urine,Catheterized Assessment and Plan Assessment: Abdominal pain and diarrhea secondary to a presacral abscess. Status post exploratory laparotomy with drainage of presacral abscess, partial colectomy with colostomy. Postoperative day #2 History of colon cancer with liver metastasis, receiving chemotherapy Previous history of colon resection with colostomy and subsequent reversal History of the liver resection History of valve replacement Plan: The patient was seen and evaluated Labs and medications reviewed Continue Gerry Henson Encourage increased use the incentive spirometer Currently stable and on room air We will continue to follow I have personally seen and examined the patient, performed the documentation and the assessment and plan as written. Number of minutes spent on the visit: 10
--- NOTE | 2022-08-17 12:43 | P.PN ---
Subjective Progress Note Date: 08/17/22 CHIEF COMPLAINT: Presacral abscess HISTORY OF PRESENT ILLNESS: Patient is postop day #2 status post exploratory laparotomy with drainage of presacral abscess, partial colectomy with colostomy. Patient remains in the ICU. Afebrile. Mild tachycardia. He is on room air. He is currently in the ICU and on 2 L oxygen satting at 75%. She does complain of abdominal pain. Denies any nausea or vomiting. Tolerate liquids. No function per ostomy. WBC is 24.4 hemoglobin 7.9 platelets 831 sodium 139 pota ssium is 5 creatinine 0.82. CEA elevated PHYSICAL EXAM: VITAL SIGNS: Reviewed. GENERAL: Well-developed in no acute distress. HEENT: No sclera icterus. Extraocular movements grossly intact. Moist buccal mucosa. Head is atraumatic, normocephalic. ABDOMEN: Soft. Nondistended. Nontender. Incisional dressing clean dry and intact. Ostomy with pink stoma. No drainage. HOLDEN drain with brownish discharge which is to be expected NEUROLOGIC: Alert and oriented. Cranial nerves II through XII grossly intact. ASSESSMENT: 1. Presacral abscess status post exploratory laparotomy with drainage of pr esacral abscess, partial colectomy with colostomy 2. History of metastatic rectal cancer with prior resection and resection of liver 3. History of leak at rectal surgical site requiring colostomy and then reversal of colostomy 4. Urinary retention with mild bilateral hydronephrosis 5. Acute kidney injury followed by nephrology PLAN: -Add IV tylenol for pain control -Continue clear liquid diet -Continue IV fluids -Continue antibiotics per ID service -Continue pain medication as needed -Continue to monitor CBC -Encouraged patient to use incentive spirometer -Increase activity level -DVT prophylaxis subcu heparin and GI prophylaxis Protonix Physician Human Services Worker note has been reviewed by physician. Signing provider agrees with the documented findings, assessment, and plan of care. I have personally seen and examined the patient, reviewed the COMMUNICATIONS INSTRUCTOR /PAs history, exam and MDM and agree with the assessment and plan as written. Based on total visit time, I have performed more than 50% of the visit. As above: Patient still having discomfort. No good bowel function. Pain is about the same or maybe slightly better than yesterday. Appetite is diminished. No nausea or vomiting. Labs noted. Family and patient considering hospice at this time which is not unreasonable. Objective - Vital Signs Vital signs: Vital Signs Temp 98.9 F 08/17/22 08:00 Pulse 89 08/17/22 11:00 Resp 12 08/17/22 11:00 BP 134/111 08/17/22 11:00 Pulse Ox 95 08/17/22 11:00 FiO2 21 08/16/22 07:37 Intake & Output 08/16/22 08/17/22 08/17/22 18:59 06:59 18:59 Intake Total 425 Output Total 150 805 Balance 275 -805 Intake: IV 105 Dextrose 5% in Water 1, 80 000 ml @ 80 mls/hr IV . [id number] [facility] with Sodium Bicarb (1 Meq/ml) 150 ml Rx#:[id number] Piperacillin-Tazobactam 3 25 .375 gm In Sodium Chloride 0.9% 100 ml @ 25 mls/hr IVPB Q8H [facility] Rx#: [id number] Intake, IV Titration 320 Amount Sodium Chloride 0.9% 1, 320 000 ml @ 80 mls/hr IV . [id number] [facility] Rx#:[id number] Output: Drainage 5 Abdomen 5 Urine 150 800 Other: Voiding Method Indwelling Catheter Indwelling Catheter Indwelling Catheter - Labs CBC & Chem 7: 08/17/22 07:11 08/17/22 07:11 Labs: Abnormal Lab Results - Last 24 Hours (Table) 08/17/22 08/17/22 Range/Units 07:11 07:11 WBC 24.4 H (3.8-10.6) k/uL RBC 3.51 L (4.30-5.90) m/uL Hgb 7.9 L (13.0-17.5) gm/dL Hct 28.9 L (39.0-53.0) % MCH 22.4 L (25.0-35.0) pg MCHC 27.2 L (31.0-37.0) g/dL RDW 19.2 H (11.5-15.5) % Plt Count 831 H (150-450) k/uL Neutrophils # (Manual) 21.47 H (1.3-7.7) k/uL Monocytes # (Manual) 1.46 H (0-1.0) k/uL Chloride 110 H (98-107) mmol/L Calcium 8.3 L (8.4-10.2) mg/dL Microbiology - Last 24 Hours (Table) 08/14/22 21:15 Blood Culture - Preliminary Blood No Growth after 48 hours 08/14/22 18:34 Urine Culture - Final Urine,Catheterized
--- NOTE | 2022-08-17 14:43 | P.PN ---
Subjective Progress Note Date: 08/17/22 This is a 61-year-old male who was recently admitted with abdominal pain with possible rectal perforation and sepsis, present on admission and is being closely monitored. Patient also was found to have significant renal failure with multiple medical consultations including oncology, infectious disease, general surgery following. Patient is postop drainage of the presacral abscess along with colectomy and end colostomy and is currently in the ICU under close observation. Nephrology following and kidney functions much improved with a creatinine of 1.09 which was 3 yesterday other labs reviewed including a WBC of 25.5 and hemoglobin is stable at 8.3. Patient is afebrile denies chest pain or shortness of breath. Patient reports his abdomen feels much improved although continues with weakness. Recommend PT/OT to evaluate the patient. Patient is currently being started on clear liquids and to advance slowly per surgery recommendations as tolerated. 08/17/2022 Patient is seen and evaluated in follow-up today continues to be in the ICU with multiple medical consultations following. Patient is postop colectomy with colostomy and reports no stool or gas noted as of yet. Patient does have HOLDEN drain of the presacral abscess noted with thick drainage noted. Patient is maintained on clear liquids and to continue per surgery recommendations. Patient is tolerating with no reports of nausea or vomiting although does have some abdominal discomfort. Patient is also maintained on IV antibiotics and recommend continue. WBC remains elevated at 24.4 although is less than yesterday, hemoglobin is 7.9, sodium is 139 with a potassium of 5.0 and current creatinine is improved at 0.82. Carcinoembryonic antigen is elevated at 1333. Other iron studies are low and ferritin is high. Vital signs stable currently and patient is currently on room air at 95% oxygen saturation. Patient is a febrile with no reports of chest pain or shortness of breath noted. Review of systems: Constitutional: reports of fatigue, no reports of fever, or chills Cardiovascular: No reports of chest pain or palpitations Respiratory: No reports of shortness of breath or cough GI: No reports of nausea, no reports of of vomiting, no reports of gas or bowel movement yet , reports some abdominal discomfort. : No reports of dysuria or retention Neurovascular: reports of generalized weakness All medications have been reviewed Active Medications Chlorpromazine HCl (Chlorpromazine 25 Mg Tab) 50 mg PO TID PRN PRN Reason: hiccups Heparin Sodium (Porcine) (Heparin Sodium,Porcine/Pf 5,000 Unit/0.5 Ml Syringe) 5,000 unit SQ Q12HR [facility] Last Admin: 08/17/22 09:13 Dose: 5,000 unit Hydromorphone HCl (Hydromorphone 1 Mg/Ml 1 Ml Syringe) 1 mg IVP Q2H PRN PRN Reason: Moderate to Severe Pain Last Admin: 08/17/22 13:49 Dose: 1 mg Piperacillin Sod/Tazobactam (Sod 3.375 gm/ Sodium Chloride) 100 mls @ 25 mls/hr IVPB Q8H [facility]; Protocol Last Admin: 08/17/22 11:01 Dose: 25 mls/hr Metronidazole 500 mg/ IV (Solution) 100 mls @ 100 mls/hr IVPB Q6H [facility]; Protocol Last Admin: 08/17/22 11:00 Dose: 100 mls/hr Sodium Chloride (Saline 0.9%) 1,000 mls @ 80 mls/hr IV .[id number] [facility] Last Admin: 08/17/22 00:47 Dose: 80 mls/hr Acetaminophen 1,000 mg/ IV (Solution) 100 mls @ 400 mls/hr IVPB Q6HR [facility] Stop: 08/18/22 06:01 Last Admin: 08/17/22 11:00 Dose: 400 mls/hr Mirtazapine (Mirtazapine 15 Mg Tab) 7.5 mg PO DAILY [facility] Last Admin: 08/17/22 09:13 Dose: 7.5 mg Naloxone HCl (Naloxone 0.4 Mg/Ml 1 Ml Vial) 0.2 mg IV Q2M PRN PRN Reason: Opioid Reversal Ondansetron HCl (Ondansetron 4 Mg/2 Ml Vial) 4 mg IVP Q6HR PRN PRN Reason: Nausea And Vomiting Last Admin: 08/16/22 12:31 Dose: 4 mg Oxycodone/Acetaminophen (Oxycodone-Apap 5-325mg 1 Each Tab) 1 each PO Q4HR PRN PRN Reason: Pain Pantoprazole Sodium (Pantoprazole 40 Mg/10 Ml Vial) 40 mg IVP BID [facility] Last Admin: 08/17/22 09:12 Dose: 40 mg PHYSICAL EXAMINATION: GENERAL: The patient is alert and oriented x4, Well developed, well nourished. HEENT: Pupils are round and equally reacting to light. EOMI. no scleral icterus. No conjunctival pallor. Normocephalic, atraumatic. No pharyngeal erythema. No thyromegaly. CARDIOVASCULAR: S1 and S2 muffled PULMONARY: diminished breath sounds bilaterally with no wheezing or rhonchi noted. ABDOMEN: soft. Mildly tender on exam. non-distended, sluggish bowel sounds. No palpable organomegaly. MUSCULOSKELETAL: No joint swelling or deformity. EXTREMITIES: No cyanosis, clubbing, or pedal edema. NEUROLOGICAL: Gross neurological examination did not reveal any focal deficits. Diffuse weakness SKIN: No rashes. Assessment: Presacral abscess with perforated rectum Status post exploratory laparotomy with drainage of the presacral abscess along with partial colectomy with colostomy Metastatic rectal cancer Sepsis, present on admission secondary to presacral abscess Urinary tract infection, present on admission Increased WBC acute renal failure, possibly multifactorial secondary to obstructive uropathy and prerenal, improving Gastroesophageal reflux disease History of prostate disorder GI prophylaxis DVT prophylaxis Full code Plan: Recommend to continue with current medications and management with multiple medical consultations including general surgery, nephrology, oncology, and infectious disease following. Patient is postop day #2 in the ICU for close monitoring status post laparoscopic drainage of the presacral abscess with partial colectomy and colostomy. Patient is currently maintained on clear liquids and recommend to continue slowly advancing as tolerated per surgery recommendations. No Bowel activity as of yet and encouraged increased activity as tolerated with PT/OT therapy evaluation. WBC continues to be elevated and patient is maintained on Flagyl and Zosyn and will continue with infectious disease following closely. Nephrology also following and patient is maintained on gentle IV hydration with a significant improvement since Penn catheter placement and continued fluids. recommend incentive spirometer, continuing with indwelling Penn catheter, and PT/OT evaluation once more stable. Recommend f ollow-up labs in the a.m and will continue to follow along closely with general surgery during hospitalization. Thank you kindly for this consultation. The impression and plan of care has been dictated by Johana Banks, nurse practitioner as directed. Dr. Marvel MD I have performed a history and examination and MDM of this patient, discussed the same with the dictator, and agree with the dictator's assessment and plan as written ,documented as a scribe. Based on total visit time, I have performed more than 50% of the visit. Any additional findings or plans will be noted. Objective - Vital Signs Vital signs: Vital Signs Temp 98.9 F 08/17/22 08:00 Pulse 89 08/17/22 11:00 Resp 12 08/17/22 11:00 BP 134/111 08/17/22 11:00 Pulse Ox 95 08/17/22 11:00 FiO2 21 08/16/22 07:37 Intake & Output 08/16/22 08/17/22 08/17/22 18:59 06:59 18:59 Intake Total 425 Output Total 150 805 Balance 275 -805 Intake: IV 105 Dextrose 5% in Water 1, 80 000 ml @ 80 mls/hr IV . [id number] [facility] with Sodium Bicarb (1 Meq/ml) 150 ml Rx#:[id number] Piperacillin-Tazobactam 3 25 .375 gm In Sodium Chloride 0.9% 100 ml @ 25 mls/hr IVPB Q8H [facility] Rx#: [id number] Intake, IV Titration 320 Amount Sodium Chloride 0.9% 1, 320 000 ml @ 80 mls/hr IV . [id number] [facility] Rx#:[id number] Output: Drainage 5 Abdomen 5 Urine 150 800 Other: Voiding Method Indwelling Catheter Indwelling Catheter Indwelling Catheter - Labs CBC & Chem 7: 08/17/22 07:11 08/17/22 07:11 Labs: Abnormal Lab Results - Last 24 Hours (Table) 08/17/22 08/17/22 Range/Units 07:11 07:11 WBC 24.4 H (3.8-10.6) k/uL RBC 3.51 L (4.30-5.90) m/uL Hgb 7.9 L (13.0-17.5) gm/dL Hct 28.9 L (39.0-53.0) % MCH 22.4 L (25.0-35.0) pg MCHC 27.2 L (31.0-37.0) g/dL RDW 19.2 H (11.5-15.5) % Plt Count 831 H (150-450) k/uL Neutrophils # (Manual) 21.47 H (1.3-7.7) k/uL Monocytes # (Manual) 1.46 H (0-1.0) k/uL Chloride 110 H (98-107) mmol/L Calcium 8.3 L (8.4-10.2) mg/dL Microbiology - Last 24 Hours (Table) 08/14/22 21:15 Blood Culture - Preliminary Blood No Growth after 48 hours 08/14/22 18:34 Urine Culture - Final Urine,Catheterized
[2022-08-18] MEDS: PIPERACILLIN-TAZOBACTAM 3.375 GM in SODIUM CHLORIDE 0.9% 100 ML IVPB SCH ×3 (04:24→20:22)
[2022-08-18] MEDS: metroNIDAZOLE-NS PMX 500 MG in SALINE 1 100ML.BAG IVPB SCH ×4 (04:51→23:16)
[2022-08-18] MEDS: ACETAMINOPHEN IV (For NPO) 1,000 MG in EMPTY BAG 1 BAG IVPB SCH (06:14)
[2022-08-18 06:16] LABS: Anisocytosis Slight; HCT 28.5 % (39.0-53.0); HGB 7.9 gm/dL (13.0-17.5); Hypochromasia Marked; MCH 22.9 pg (25.0-35.0); MCHC 27.6 g/dL (31.0-37.0); Mean Platelet Volume 8.9; Microcytosis Slight; Platelet Count 861 k/uL (150-450); Poikilocytosis Slight; RBC 3.44 m/uL (4.30-5.90); RDW 19.2 % (11.5-15.5); WBC 18.4 k/uL (3.8-10.6)
--- NOTE | 2022-08-18 08:15 | P.PN ---
Subjective Progress Note Date: 08/16/22 Principal diagnosis: Intra-abdominal/pelvic abscess Patient is a 61-year-old male with a past medical history significant for metastatic rectal cancer initial diagnosis 2018 subsequently presented to hospital with abdominal pain seemed abdominal pelvis that shows evidence of possible abscess patient was taken to the OR on 08/15/2022 this patient who is status post exploratory laparotomy with drainage of presacral abscess partial colectomy with colostomy no OR culture were done. On today's evaluation that is 08/16/2022 the patient did have a fever of 102F last night however the patient is afebrile this morning, the patient is breathing slightly comfortably patient lower abdominal pain is currently controlled denies any chest pain or shortness of breath or cough no nausea no vomiting Objective - Vital Signs Vital signs: Vital Signs Temp 98.1 F 08/16/22 08:00 Pulse 97 08/16/22 10:30 Resp 75 H 08/16/22 11:00 BP 118/85 08/16/22 11:00 Pulse Ox 95 08/16/22 11:00 FiO2 21 08/16/22 07:37 Intake & Output 08/15/22 08/16/22 08/16/22 18:59 06:59 18:59 Intake Total 1220 1375 425 Output Total 1125 1495 150 Balance 95 -120 275 Weight 62.596 kg 59.9 kg Intake: IV 900 1375 105 ACETAMINOPHEN IV (For NPO 200 ) 1,000 mg In Empty Bag 1 bag @ 400 mls/hr IVPB Q6H [facility] Rx#:[id number] Dextrose 5% in Water 1, 800 80 000 ml @ 80 mls/hr IV . [id number] [facility] with Sodium Bicarb (1 Meq/ml) 150 ml Rx#:[id number] Piperacillin-Tazobactam 3 175 25 .375 gm In Sodium Chloride 0.9% 100 ml @ 25 mls/hr IVPB Q8H [facility] Rx#: [id number] metroNIDAZOLE-NS PMX 500 200 mg In Saline 1 100ml.bag @ 100 mls/hr IVPB Q6H [facility] Rx#:[id number] Intake, IV Titration 320 320 Amount Dextrose 5% in Water 1, 320 000 ml @ 80 mls/hr IV . [id number] [facility]ENG with Sodium Bicarb (1 Meq/ml) 150 ml Rx#:[id number] Sodium Chloride 0.9% 1, 320 000 ml @ 80 mls/hr IV . [id number] [facility] Rx#:[id number] Output: Urine 1100 1495 150 Estimated Blood Loss 25 Other: Voiding Method Indwelling Catheter Indwelling Catheter Indwelling Catheter - Exam GENERAL DESCRIPTION: Middle-aged male lying in bed in no distress RESPIRATORY SYSTEM: Unlabored breathing , decreased breath sounds at bases HEART: S1 S2 regular rate and rhythm , ABDOMEN: Soft , midline incision is intact no output in colostomy no tenderness EXTREMITIES: No edema feet - Labs CBC & Chem 7: 08/18/22 06:00 08/17/22 07:11 Labs: Abnormal Lab Results - Last 24 Hours (Table) 08/16/22 08/16/22 08/16/22 Range/Units 06:01 06:01 06:01 WBC 25.5 H (3.8-10.6) k/uL RBC 3.51 L (4.30-5.90) m/uL Hgb 8.3 L (13.0-17.5) gm/dL Hct 29.8 L (39.0-53.0) % MCH 23.5 L (25.0-35.0) pg MCHC 27.7 L (31.0-37.0) g/dL RDW 19.4 H (11.5-15.5) % Plt Count 761 H (150-450) k/uL Neutrophils # 23.5 H (1.3-7.7) k/uL Lymphocytes # 0.7 L (1.0-4.8) k/uL Monocytes # 1.1 H (0-1.0) k/uL BUN 24 H (9-20) mg/dL Glucose 134 H (74-99) mg/dL Calcium 8.3 L (8.4-10.2) mg/dL Iron (65-175) ug/dL TIBC (228-460) ug/dL % Saturation (15.00-50.00) Transferrin (204.0-354.0) mg/dL Ferritin (22.0-322.0) ng/mL Carcinoembryonic Ag 1333.0 H (0.0-4.9) ng/mL Vitamin B12 (200.0-944.0) pg/mL 08/16/22 Range/Units 06:01 WBC (3.8-10.6) k/uL RBC (4.30-5.90) m/uL Hgb (13.0-17.5) gm/dL Hct (39.0-53.0) % MCH (25.0-35.0) pg MCHC (31.0-37.0) g/dL RDW (11.5-15.5) % Plt Count (150-450) k/uL Neutrophils # (1.3-7.7) k/uL Lymphocytes # (1.0-4.8) k/uL Monocytes # (0-1.0) k/uL BUN (9-20) mg/dL Glucose (74-99) mg/dL Calcium (8.4-10.2) mg/dL Iron 8 L (65-175) ug/dL TIBC 141 L (228-460) ug/dL % Saturation 5.40 L (15.00-50.00) Transferrin 101.0 L (204.0-354.0) mg/dL Ferritin 438.0 H (22.0-322.0) ng/mL Carcinoembryonic Ag (0.0-4.9) ng/mL Vitamin B12 1223.0 H (200.0-944.0) pg/mL Microbiology - Last 24 Hours (Table) 08/14/22 21:15 Blood Culture - Preliminary Blood No Growth after 24 hours 08/14/22 18:34 Urine Culture - Preliminary Urine,Catheterized Assessment and Plan (1) Intra-abdominal abscess Current Visit: Yes Status: Acute Code(s): K65.1 - PERITONEAL ABSCESS SNOMED Code(s): 21243541 Plan: 1patient with a pelvic abscess in this patient found to have a history of metastatic rectal cancer with a previous surgery he now presents hospital with abdominal pain and CT has been suspicious for an abscess we will need to call for any data gram-negative with a likely pathogen awaiting surgical drainage 2patient is status post laparotomy drainage of the abscess unfortunately no cultures colectomy and diverting colostomy 3-patient to continue with Zosyn while waiting for condition to stabilize Time with Patient: Less than 30
--- NOTE | 2022-08-18 08:16 | P.PN ---
Subjective Progress Note Date: 08/17/22 Principal diagnosis: Intra-abdominal/pelvic abscess Patient is a 61-year-old male with a past medical history significant for metastatic rectal cancer initial diagnosis 2018 subsequently presented to hospital with abdominal pain seemed abdominal pelvis that shows evidence of possible abscess patient was taken to the OR on 08/15/2022 this patient who is status post exploratory laparotomy with drainage of presacral abscess partial colectomy with colostomy no OR culture were done. On today's evaluation that is 08/17/2022 the patient is afebrile this morning, the patient is breathing comfortably, patient lower abdominal pain is currently controlled denies any chest pain or shortness of breath or cough no nausea no vomiting, feeling slightly better Objective - Vital Signs Vital signs: Vital Signs Temp 98.2 F 08/17/22 20:00 Pulse 101 H 08/17/22 20:00 Resp 14 08/17/22 20:00 BP 120/85 08/17/22 20:00 Pulse Ox 94 L 08/17/22 20:00 FiO2 21 08/16/22 07:37 Intake & Output 08/17/22 08/17/22 08/18/22 06:59 18:59 06:59 Intake Total 840 Output Total 805 710 Balance -805 130 Weight 59.9 kg Intake: IV 100 Piperacillin-Tazobactam 3 100 .375 gm In Sodium Chloride 0.9% 100 ml @ 25 mls/hr IVPB Q8H CHENG Rx#: [id number] Intake, IV Titration 740 Amount ACETAMINOPHEN IV (For NPO 100 ) 1,000 mg In Empty Bag 1 bag @ 400 mls/hr IVPB Q6HR CHENG Rx#:[id number] Sodium Chloride 0.9% 1, 640 000 ml @ 80 mls/hr IV . [id number] CHENG Rx#:[id number] Output: Drainage 5 0 Abdomen 5 0 Urine 800 710 Other: Voiding Method Indwelling Catheter Indwelling Catheter Indwelling Catheter - Exam GENERAL DESCRIPTION: Middle-aged male lying in bed in no distress RESPIRATORY SYSTEM: Unlabored breathing , decreased breath sounds at bases HEART: S1 S2 regular rate and rhythm , ABDOMEN: Soft , midline incision is intact no output in colostomy no tenderness EXTREMITIES: No edema feet - Labs CBC & Chem 7: 08/18/22 06:00 08/17/22 07:11 Labs: Abnormal Lab Results - Last 24 Hours (Table) 08/17/22 08/17/22 Range/Units 07:11 07:11 WBC 24.4 H (3.8-10.6) k/uL RBC 3.51 L (4.30-5.90) m/uL Hgb 7.9 L (13.0-17.5) gm/dL Hct 28.9 L (39.0-53.0) % MCH 22.4 L (25.0-35.0) pg MCHC 27.2 L (31.0-37.0) g/dL RDW 19.2 H (11.5-15.5) % Plt Count 831 H (150-450) k/uL Neutrophils # (Manual) 21.47 H (1.3-7.7) k/uL Monocytes # (Manual) 1.46 H (0-1.0) k/uL Chloride 110 H (98-107) mmol/L Calcium 8.3 L (8.4-10.2) mg/dL Microbiology - Last 24 Hours (Table) 08/14/22 21:15 Blood Culture - Preliminary Blood No Growth after 72 hours Assessment and Plan (1) Intra-abdominal abscess Current Visit: Yes Status: Acute Code(s): K65.1 - PERITONEAL ABSCESS SNOMED Code(s): 95040121 Plan: 1patient with a pelvic abscess in this patient found to have a history of metastatic rectal cancer with a previous surgery he now presents hospital with abdominal pain and CT has been suspicious for an abscess we will need to call for any data gram-negative with a likely pathogen awaiting surgical drainage 2patient is status post laparotomy drainage of the abscess unfortunately no cultures were done, patient did have colectomy and diverting colostomy 3-patient did have some clinical improvement and will continue with Zosyn while waiting for condition to stabilize Time with Patient: Less than 30
--- NOTE | 2022-08-18 10:13 | P.PN ---
Subjective Progress Note Date: 08/17/22 Principal diagnosis: presacral abscess, metastatic rectal cancer Pt seen today in ICU post op day 2. He is feeling ok. His family is present, denies fevers, chills, nausea. Objective - Vital Signs Vital signs: Vital Signs Temp 98.9 F 08/17/22 08:00 Pulse 89 08/17/22 11:00 Resp 12 08/17/22 11:00 BP 134/111 08/17/22 11:00 Pulse Ox 95 08/17/22 11:00 FiO2 21 08/16/22 07:37 Intake & Output 08/16/22 08/17/22 08/17/22 18:59 06:59 18:59 Intake Total 425 Output Total 150 805 Balance 275 -805 Intake: IV 105 Dextrose 5% in Water 1, 80 000 ml @ 80 mls/hr IV . [id number] CHENG with Sodium Bicarb (1 Meq/ml) 150 ml Rx#:[id number] Piperacillin-Tazobactam 3 25 .375 gm In Sodium Chloride 0.9% 100 ml @ 25 mls/hr IVPB Q8H [facility]ENG Rx#: [id number] Intake, IV Titration 320 Amount Sodium Chloride 0.9% 1, 320 000 ml @ 80 mls/hr IV . [id number] [facility]ENG Rx#:[id number] Output: Drainage 5 Abdomen 5 Urine 150 800 Other: Voiding Method Indwelling Catheter Indwelling Catheter Indwelling Catheter - Constitutional General appearance: Present: average body habitus, cooperative, no acute distres s - EENT Eyes: Present: anicteric sclerae, EOMI ENT: Present: hearing grossly normal - Respiratory Respiratory: bilateral: CTA - Cardiovascular Rhythm: regular Heart sounds: normal: S1, S2 Abnormal Heart Sounds: Absent: systolic murmur, diastolic murmur, rub, S3 Gallop, S4 Gallop, click, other - Peripheral edema leg Peripheral Edema: bilateral: None - Gastrointestinal General gastrointestinal: Present: normal bowel sounds, soft. Absent: absent bowel sounds, decreased bowel sounds, distended, hepatomegaly, hyperactive bowel sounds, organomegaly, rigid, scaphoid, splenomegaly, tenderness, umbilical hernia, ventral hernia - Integumentary Integumentary: Present: normal - Neurologic Neurologic: Present: CNII-XII intact - Musculoskeletal Musculoskeletal: Present: generalized weakness, strength equal bilaterally - Psychiatric Psychiatric: Present: A&O x's 3, appropriate affect, intact judgment & insight - Labs CBC & Chem 7: 08/18/22 06:00 08/17/22 07:11 Labs: Abnormal Lab Results - Last 24 Hours (Table) 08/17/22 08/17/22 Range/Units 07:11 07:11 WBC 24.4 H (3.8-10.6) k/uL RBC 3.51 L (4.30-5.90) m/uL Hgb 7.9 L (13.0-17.5) gm/dL Hct 28.9 L (39.0-53.0) % MCH 22.4 L (25.0-35.0) pg MCHC 27.2 L (31.0-37.0) g/dL RDW 19.2 H (11.5-15.5) % Plt Count 831 H (150-450) k/uL Neutrophils # (Manual) 21.47 H (1.3-7.7) k/uL Monocytes # (Manual) 1.46 H (0-1.0) k/uL Chloride 110 H (98-107) mmol/L Calcium 8.3 L (8.4-10.2) mg/dL Microbiology - Last 24 Hours (Table) 08/14/22 21:15 Blood Culture - Preliminary Blood No Growth after 48 hours 08/14/22 18:34 Urine Culture - Final Urine,Catheterized Assessment and Plan (1) Abscess, sacrum Current Visit: Yes Status: Acute Priority: High Code(s): M46.28 - OSTEOMYELITIS OF VERTEBRA, SACRAL AND SACROCOCCYGEAL REGION SNOMED Code(s): 567990115 (2) Rectal adenocarcinoma Current Visit: No Status: Chronic Priority: Medium Code(s): C20 - M ALIGNANT NEOPLASM OF RECTUM SNOMED Code(s): 269280431 (3) Anemia Current Visit: Yes Status: Chronic Priority: Medium Code(s): D64.9 - ANEMIA, UNSPECIFIED SNOMED Code(s): 364850258 Plan: Patient cont to do well postop. Stoma looks good on visual inspection, no stool yet. Pt and family had question about prognosis, disease trajectory, opinions about continuing treatment, risk/benefit, palliative care and hospice as options. Did recommend update of code status, pt and family said they will discuss and report to Nursing. All of pt and family questions were answered to their satisfaction. Hold any chemo treatment for about 4-6 weeks post op. Appointments the oncologist office were adjusted. Pt can see how he feels after some rehab and recovery time. Progressive anemia. CBC monitoring. Iron studies most suggestive of inflammation. This will be rechecked after patient has recovered from abscess and surgery. CEA in office about 1 month ago was greater than 3000. Currently [address] attests: I have seen and examined pt, performed H&P, developed impression and plan of care. Discussed with dictator. Agree with documentation, dictated as scribe.
[2022-08-18] MEDS: HEPARIN SODIUM,PORCINE/PF 5,000 UNIT/0.5 ML SYRINGE SQ SCH ×2 (10:16→21:35)
[2022-08-18] MEDS: MIRTAZAPINE 15 MG TAB PO SCH (10:16)
[2022-08-18] MEDS: PANTOPRAZOLE 40 MG/10 ML VIAL IVP SCH ×2 (10:16→21:35)
--- NOTE | 2022-08-18 10:21 | P.PN ---
Progress Note - Text Progress Note Date: 08/18/22 Patient is awake and alert in the ICU. He has minimal complaints of pain. His ostomy has some function. On exam vital signs appear stable. Abdomen is soft. Stoma and some liquid stool. White count is decreased 18,000 from 24,000. Patient will continue to receive supportive care. We'll increase his diet to full liquids. Dressing change was done today.
--- NOTE | 2022-08-18 10:43 | P.PN ---
Subjective Progress Note Date: 08/18/22 This is a pleasant 61-year-old male patient with a known history of colon cancer with liver metastasis with previous colectomy and colostomy and subsequent reversal in January 2022. He had liver resection in 2019. He's also had cardiac valve replacement. His last round of chemotherapy was on 07/14/2022. He presented here to the emergency room on 08/14/2022 with lower abdominal discomfort right greater than left and diarrhea. CAT scan of the abdomen and pelvis revealed a blind ending pouch extending from the rectum to the presacral space which appeared larger compared to previous. Most consistent with perforated rectum. On 08/15/2022 he had undergone an exploratory laparotomy with drainage of the presacral abscess, partial colectomy with colostomy. There is some concerns regarding possible extended intubation and mechanical ventilation he was admitted to the intensive care unit. The patient was extubated however. He is awake and alert. He is maintaining O2 saturations in the 90s on room air. Currently on D5W with 3 A of bicarb at 80 mL per hour. He's also been maintained on Flagyl and Zosyn. Working well with the incentive spirometer. White count 25.5. Hemoglobin 8.3. Platelets 761. Sodium 141. Potassium 5.1. BUN 24. Creatinine 1.09. Carcinoembryonic antigen 1333. C. difficile screen was negative. The patient is seen today 08/17/2022 in follow-up in the intensive care unit. He is currently sitting up in bed. Awake and alert in no acute distress. Main taining good O2 saturations in the 90s on room air. He has normal saline at 80 MLS per hour. Postoperative day #2. He remains on Zosyn and Flagyl. Blood culture reveals no growth. Urine culture revealed no growth. White count 24.4. Hemoglobin 7.9. Sodium 139. Potassium 5.0. BUN 19. Creatinine 0.82. The patient is seen today 08/18/2022 in follow-up in the intensive care unit. He is awake and alert in no acute distress. Postoperative day #3. Sitting up in bed. Maintaining good O2 saturations in the 90s on room air. He has normal saline running at 80 MLS per hour. His diet has been advanced to regular. Blood cultures revealed no growth. Urine culture revealed no growth. White count 18.4. Hemoglobin 7.9. He remains on heparin for DVT prophylaxis. Continuing on antibiotics in the form of Flagyl and Zosyn. Objective - Vital Signs Vital signs: Vital Signs Temp 98.2 F 08/18/22 09:00 Pulse 104 H 08/18/22 09:00 Resp 17 08/18/22 09:00 BP 122/80 08/18/22 09:00 Pulse Ox 97 08/18/22 09:00 FiO2 21 08/16/22 07:37 Intake & Output 08/17/22 08/18/22 08/18/22 18:59 06:59 18:59 Intake Total 840 580 Output Total 710 1250 Balance 130 -670 Weight 59.9 kg Intake: IV 100 100 Piperacillin-Tazobactam 3 100 100 .375 gm In Sodium Chloride 0.9% 100 ml @ 25 mls/hr IVPB Q8H [facility] Rx#: [id number] Intake, IV Titration 740 480 Amount ACETAMINOPHEN IV (For NPO 100 ) 1,000 mg In Empty Bag 1 bag @ 400 mls/hr IVPB Q6HR [facility]ENG Rx#:[id number] Sodium Chloride 0.9% 1, 640 480 000 ml @ 80 mls/hr IV . [id number] [facility]ENG Rx#:[id number] Output: Drainage 0 Abdomen 0 Urine 710 1000 Stool 250 Other: Voiding Method Indwelling Catheter Indwelling Catheter Indwelling Catheter - Exam GENERAL EXAM: Alert, pleasant 61-year-old male patient, on room air, comfortable in no apparent distress. HEAD: Normocephalic. EYES: Normal reaction of pupils, equal size. NOSE: Clear with pink turbinates. THROAT: No erythema or exudates. NECK: No masses, no JVD. CHEST: No chest wall deformity. LUNGS: Equal air entry with no crackles, wheeze, rhonchi or dullness. CVS: S1 and S2 normal with no audible murmur, regular rhythm. ABDOMEN: Colostomy intact and with output. No hepatosplenomegaly, normal bowel sounds, no guarding or rigidity. SPINE: No scoliosis or deformity SKIN: No rashes CENTRAL NERVOUS SYSTEM: No focal deficits, tone is normal in all 4 extremities. EXTREMITIES: There is no peripheral edema. No clubbing, no cyanosis. Peripheral pulses are intact. - Labs CBC & Chem 7: 08/18/22 06:00 08/17/22 07:11 Labs: Abnormal Lab Results - Last 24 Hours (Table) 08/18/22 Range/Units 06:00 WBC 18.4 H (3.8-10.6) k/uL RBC 3.44 L (4.30-5.90) m/uL Hgb 7.9 L (13.0-17.5) gm/dL Hct 28.5 L (39.0-53.0) % MCH 22.9 L (25.0-35.0) pg MCHC 27.6 L (31.0-37.0) g/dL RDW 19.2 H (11.5-15.5) % Plt Count 861 H (150-450) k/uL Microbiology - Last 24 Hours (Table) 08/14/22 21:15 Blood Culture - Preliminary Blood No Growth after 72 hours Assessment and Plan Assessment: Abdominal pain and diarrhea secondary to a presacral abscess. Status post exploratory laparotomy with drainage of presacral abscess, partial colectomy with colostomy. Postoperative day #3 History of colon cancer with liver metastasis, receiving chemotherapy Previous history of colon resection with colostomy and subsequent reversal History of the liver resection History of valve replacement Plan: The patient was seen and evaluated Labs and medications reviewed Discontinue IV fluids Continue Flagyl, Zosyn Encourage increased use the incentive spirometer Currently stable and on room air Increase his activity as tolerated Gen. medical floor overflow without telemetry We will continue to follow I have personally seen and examined the patient, performed the documentation and the assessment and plan as written. Number of minutes spent on the visit: 10
[2022-08-18] MEDS: HYDROmorphone 1 MG/ML 1 ML SYRINGE IVP PRN ×4 (10:47→21:48)
[2022-08-18] MEDS: oxyCODONE-APAP 5-325MG 1 EACH TAB PO PRN ×2 (16:08→20:29)
[2022-08-19] MEDS: HYDROmorphone 1 MG/ML 1 ML SYRINGE IVP PRN ×4 (00:35→22:56)
[2022-08-19] MEDS: PIPERACILLIN-TAZOBACTAM 3.375 GM in SODIUM CHLORIDE 0.9% 100 ML IVPB SCH ×3 (03:36→22:10)
[2022-08-19] MEDS: metroNIDAZOLE-NS PMX 500 MG in SALINE 1 100ML.BAG IVPB SCH ×4 (04:53→22:54)
[2022-08-19] MEDS: PANTOPRAZOLE 40 MG/10 ML VIAL IVP SCH ×2 (09:52→22:53)
[2022-08-19] MEDS: MIRTAZAPINE 15 MG TAB PO SCH (09:52)
[2022-08-19] MEDS: HEPARIN SODIUM,PORCINE/PF 5,000 UNIT/0.5 ML SYRINGE SQ SCH ×2 (09:53→22:10)
--- NOTE | 2022-08-19 12:53 | P.PN ---
Progress Note - Text Progress Note Date: 08/19/22 The patient is resting comfortably in his bed. He has minimal complaints of pain. His colostomy is functioning. His wound is stable. White count is down to 18,000. The parents status post diverticulectomy colostomy for anastomotic leak. Patient will continue to receive IV antibiotics and supportive care.
--- NOTE | 2022-08-19 13:56 | P.PN ---
Subjective Progress Note Date: 08/19/22 Principal diagnosis: Perirectal abscess. This is a pleasant 61-year-old male patient with a known history of colon cancer with liver metastasis with previous colectomy and colostomy and subsequent reversal in January 2022. He had liver resection in 2018. He's also had cardiac valve replacement. His last round of chemotherapy was on 07/14/2022. He presented here to the emergency room on 08/14/2022 with lower abdominal discomfort right greater than left and diarrhea. CAT scan of the abdomen and pelvis revealed a blind ending pouch extending from the rectum to the presacral space which appeared larger compared to previous. Most consistent with perforated rectum. On 08/15/2022 he had undergone an exploratory laparotomy with drainage of the presacral abscess, partial colectomy with colostomy. There is some concerns regarding possible extended intubation and mechanical ventilation he was admitted to the intensive care unit. The patient was extubated however. He is awake and alert. He is maintaining O2 saturations in the 90s on room air. Currently on D5W with 3 A of bicarb at 80 mL per hour. He's also been maintained on Flagyl and Zosyn. Working well with the incentive spirometer. White count 25.5. Hemoglobin 8.3. Platelets 761. Sodium 141. Potassium 5.1. BUN 24. Creatinine 1.09. Carcinoembryonic antigen 1333. C. difficile screen was negative. The patient is seen today 08/17/2022 in follow-up in the intensive care unit. He is currently sitting up in bed. Awake and alert in no acute distress. Maintaining good O2 saturations in the 90s on room air. He has normal saline at 80 MLS per hour. Postoperative day #2. He remains on Zosyn and Flagyl. Blood culture reveals no growth. Urine culture revealed no growth. White count 24.4. Hemoglobin 7.9. Sodium 139. Potassium 5.0. BUN 19. Creatinine 0.82. The patient is seen today 08/18/2022 in follow-up in the intensive care unit. He is awake and alert in no acute distress. Postoperative day #3. Sitting up in bed. Maintaining good O2 saturations in the 90s on room air. He has normal saline running at 80 MLS per hour. His diet has been advanced to regular. Blood cultures revealed no growth. Urine culture revealed no growth. White count 18.4. Hemoglobin 7.9. He remains on heparin for DVT prophylaxis. Continuing on antibiotics in the form of Flagyl and Zosyn. Progress note dated 08/19/2022. The patient was seen in 477 today. Yesterday, remains in the intensive care unit. He's postop day #4. He is on room air, with excellent saturations. Normal saline is running at 80 mL an hour. His diet has been advanced. Cultures are negative. He remains on Zosyn and Flagyl. No new laboratory data today. Labs from August 18 are reviewed. He was seen by general surgery already today. Objective - Vital Signs Vital signs: Vital Signs Temp 98.7 F 08/19/22 08:00 Pulse 107 H 08/19/22 09:52 Resp 18 08/19/22 09:52 BP 136/79 08/19/22 08:00 Pulse Ox 98 08/19/22 08:00 FiO2 21 08/16/22 07:37 Intake & Output 08/18/22 08/19/22 08/19/22 18:59 06:59 18:59 Intake Total 600 760 Output Total 1450 1050 200 Balance -850 -290 -200 Intake: IV 100 200 Piperacillin-Tazobactam 3 100 200 .375 gm In Sodium Chloride 0.9% 100 ml @ 25 mls/hr IVPB Q8H CHENG Rx#: [id number] Intake, IV Titration 560 Amount Sodium Chloride 0.9% 1, 360 000 ml @ 80 mls/hr IV . [id number] CHENG Rx#:[id number] PMX 500 200 mg In Saline 1 100ml.bag @ 100 mls/hr IVPB Q6H CHENG Rx#:[id number] Oral 500 Output: Drainage 0 Abdomen 0 Urine 1150 1050 Stool 300 200 Other: Voiding Method Indwelling Catheter Indwelling Catheter # Bowel Movements 1 - Exam No acute distress, oriented 3. Currently on room air. No respiratory distress. HEENT examination is grossly unremarkable. Neck supple. Full range of motion. No adenopathy thyromegaly or neck vein distention. Cardiovascular examination reveals regular rhythm rate. S1-S2 normal. No S3 or S4. No discernible murmur noted. Heart rate 100 bpm. Lungs reveal clear breath sounds. Breath sounds are equal bilaterally. No adventitious lung sounds including wheezes rhonchi or crackles. Saturations on room air 98-99%. Abdomen soft bowel sounds are heard. No masses or tenderness. Colostomy noted, without blood. Extremities are intact. No cyanosis clubbing or edema. Skin is without rash or lesion. Neurologic examination is brief but nonfocal. - Labs CBC & Chem 7: 08/18/22 06:00 08/17/22 07:11 Labs: Microbiology - Last 24 Hours (Table) 08/14/22 21:15 Blood Culture - Preliminary Blood No Growth after 96 hours Assessment and Plan Assessment: Abdominal pain and diarrhea secondary to a presacral abscess. Status post exploratory laparotomy with drainage of presacral abscess, partial colectomy with colostomy. Postoperative day #4. History of colon cancer with liver metastasis, receiving chemotherapy. Previous history of colon resection with colostomy and subsequent reversal. History of the liver resection. History of valve replacement. Plan: Plan dated 08/19/2022. The patient was transferred out of the ICU yesterday. He is currently in room 477. The patient is not requiring any supplemental oxygen. Diet has been advanced. He continues on Flagyl and Zosyn. Cultures are negative. IV fluids are discontinued. He continues with the incentive spirometer. Additional recommendations and suggestions are forthcoming. Prognosis is certainly guarded. We will continue to follow the patient and make recommendations along the way. He already has been seen by general surgery today. Time with Patient: Less than 30
--- NOTE | 2022-08-19 21:20 | PN ---
PROGRESS NOTE SUBJECTIVE: This is a 61-year-old gentleman who was admitted with perforated rectum and presacral laparoscopic surgery. The patient was monitored in ICU. PAST MEDICAL HISTORY: Reviewed. REVIEW OF SYSTEMS: Could not be taken, the patient is confused. CURRENT MEDICATIONS: Reviewed include heparin subcu. Thorazine, dose and rest of medication noted. PHYSICAL EXAMINATION: VITAL SIGNS: Pulse is 98, blood pressure 115/80, respirations 16. HEENT: Conjunctivae normal. NECK: No JVD. CARDIOVASCULAR: S1, S2 muffled. RESPIRATIONS: Breath sounds diminished at the bases. ABDOMEN: Soft, status post surgery. HOLDEN drain is present. LEGS: No edema. No swelling. NERVOUS SYSTEM: Diffusely weak. LABS: Reviewed personally. Hemoglobin 7.9. Rest of the labs are noted. ASSESSMENT: 1. Presacral abscess and perforated rectum. 2. Status post exploratory laparotomy with drainage. 3. Metastatic rectal cancer. 4. Sepsis. 5. Acute renal failure. 6. Multiple medical issues. RECOMMENDATIONS AND DISCUSSION: Recommend to continue current management and symptomatic treatment. Otherwise, at this time, I would recommend closely monitor with surgery in ICU. See orders for further details. Prognosis guarded. Further recommendations to follow. MMODL / IJN: [id number] /
[2022-08-20] MEDS: PIPERACILLIN-TAZOBACTAM 3.375 GM in SODIUM CHLORIDE 0.9% 100 ML IVPB SCH ×3 (04:09→22:18)
[2022-08-20] MEDS: metroNIDAZOLE-NS PMX 500 MG in SALINE 1 100ML.BAG IVPB SCH ×4 (05:12→22:18)
[2022-08-20] MEDS: HYDROmorphone 1 MG/ML 1 ML SYRINGE IVP PRN ×2 (05:15→16:59)
[2022-08-20] MEDS: MIRTAZAPINE 15 MG TAB PO SCH (07:50)
[2022-08-20] MEDS: HEPARIN SODIUM,PORCINE/PF 5,000 UNIT/0.5 ML SYRINGE SQ SCH ×2 (07:51→22:17)
[2022-08-20] MEDS: PANTOPRAZOLE 40 MG/10 ML VIAL IVP SCH ×2 (07:51→23:04)
--- NOTE | 2022-08-20 08:54 | P.PN ---
Subjective Progress Note Date: 08/18/22 Principal diagnosis: Intra-abdominal/pelvic abscess Patient is a 61-year-old male with a past medical history significant for metastatic rectal cancer initial diagnosis 2018 subsequently presented to hospital with abdominal pain seemed abdominal pelvis that shows evidence of possible abscess patient was taken to the OR on 08/15/2022 this patient who is status post exploratory laparotomy with drainage of presacral abscess partial colectomy with colostomy no OR culture were done. On today's evaluation that is 08/18/2022 the patient remains to be afebrile, the patient is breathing comfortably on room air, patient lower abdominal pain is currently controlled denies any chest pain or shortness of breath or cough no nausea no vomiting, Objective - Vital Signs Vital signs: Vital Signs Temp 98.2 F 08/18/22 09:00 Pulse 104 H 08/18/22 09:00 Resp 17 08/18/22 09:00 BP 122/80 08/18/22 09:00 Pulse Ox 97 08/18/22 09:00 FiO2 21 08/16/22 07:37 Intake & Output 08/17/22 08/18/22 08/18/22 18:59 06:59 18:59 Intake Total 840 580 Output Total 710 1250 Balance 130 -670 Weight 59.9 kg Intake: IV 100 100 Piperacillin-Tazobactam 3 100 100 .375 gm In Sodium Chloride 0.9% 100 ml @ 25 mls/hr IVPB Q8H [facility]ENG Rx#: [id number] Intake, IV Titration 740 480 Amount ACETAMINOPHEN IV (For NPO 100 ) 1,000 mg In Empty Bag 1 bag @ 400 mls/hr IVPB Q6HR [facility]ENG Rx#:[id number] Sodium Chloride 0.9% 1, 640 480 000 ml @ 80 mls/hr IV . [id number] [facility]ENG Rx#:[id number] Output: Drainage 0 Abdomen 0 Urine 710 1000 Stool 250 Other: Voiding Method Indwelling Catheter Indwelling Catheter Indwelling Catheter - Exam GENERAL DESCRIPTION: Middle-aged male lying in bed in no distress RESPIRATORY SYSTEM: Unlabored breathing , decreased breath sounds at bases HEART: S1 S2 regular rate and rhythm , ABDOMEN: Soft , midline incision is intact no tenderness EXTREMITIES: No edema feet - Labs CBC & Chem 7: 08/18/22 06:00 08/17/22 07:11 Labs: Abnormal Lab Results - Last 24 Hours (Table) 08/18/22 Range/Units 06:00 WBC 18.4 H (3.8-10.6) k/uL RBC 3.44 L (4.30-5.90) m/uL Hgb 7.9 L (13.0-17.5) gm/dL Hct 28.5 L (39.0-53.0) % MCH 22.9 L (25.0-35.0) pg MCHC 27.6 L (31.0-37.0) g/dL RDW 19.2 H (11.5-15.5) % Plt Count 861 H (150-450) k/uL Microbiology - Last 24 Hours (Table) 08/14/22 21:15 Blood Culture - Preliminary Blood No Growth after 72 hours Assessment and Plan (1) Intra-abdominal abscess Current Visit: Yes Status: Acute Code(s): K65.1 - PERITONEAL ABSCESS SNOMED Code(s): 94449662 Plan: 1patient with a pelvic abscess in this patient found to have a history of metastatic rectal cancer with a previous surgery he now presents hospital with abdominal pain and CT has been suspicious for an abscess we will need to call for any data gram-negative with a likely pathogen awaiting surgical drainage 2patient is status post laparotomy drainage of the abscess unfortunately no cultures were done, patient did have colectomy and diverting colostomy 3-patient slowly Improving and the white count is trending down, patient will continue with Zosyn Time with Patient: Less than 30
--- NOTE | 2022-08-20 08:55 | P.PN ---
Subjective Progress Note Date: 08/19/22 Principal diagnosis: Intra-abdominal/pelvic abscess Patient is a 61-year-old male with a past medical history significant for metastatic rectal cancer initial diagnosis 2018 subsequently presented to hospital with abdominal pain seemed abdominal pelvis that shows evidence of possible abscess patient was taken to the OR on 08/15/2022 this patient who is status post exploratory laparotomy with drainage of presacral abscess partial colectomy with colostomy no OR culture were done. On today's evaluation that is 08/19/2022 the patient continues to be afebrile, the patient is breathing comfortably on room air, patient lower abdominal pain has decreased in intensity, the patient denies any chest pain or shortness of breath or cough no nausea no vomiting, Objective - Vital Signs Vital signs: Vital Signs Temp 98.7 F 08/19/22 08:00 Pulse 107 H 08/19/22 09:52 Resp 18 08/19/22 09:52 BP 136/79 08/19/22 08:00 Pulse Ox 98 08/19/22 08:00 FiO2 21 08/16/22 07:37 Intake & Output 08/18/22 08/19/22 08/19/22 18:59 06:59 18:59 Intake Total 600 760 Output Total 1450 1050 200 Balance -850 -290 -200 Intake: IV 100 200 Piperacillin-Tazobactam 3 100 200 .375 gm In Sodium Chloride 0.9% 100 ml @ 25 mls/hr IVPB Q8H [facility]ENG Rx#: [id number] Intake, IV Titration 560 Amount Sodium Chloride 0.9% 1, 360 000 ml @ 80 mls/hr IV . [id number] CHENG Rx#:[id number] metroNIDAZOLE-NS PMX 500 200 mg In Saline 1 100ml.bag @ 100 mls/hr IVPB Q6H [facility]ENG Rx#:[id number] Oral 500 Output: Drainage 0 Abdomen 0 Urine 1150 1050 Stool 300 200 Other: Voiding Method Indwelling Catheter Indwelling Catheter # Bowel Movements 1 - Exam GENERAL DESCRIPTION: Middle-aged male lying in bed in no distress RESPIRATORY SYSTEM: Unlabored breathing , decreased breath sounds at bases HEART: S1 S2 regular rate and rhythm , ABDOMEN: Soft , midline incision is intact no tenderness EXTREMITIES: No edema feet - Labs CBC & Chem 7: 08/18/22 06:00 08/17/22 07:11 Labs: Microbiology - Last 24 Hours (Table) 08/14/22 21:15 Blood Culture - Preliminary Blood No Growth after 96 hours Assessment and Plan (1) Intra-abdominal abscess Current Visit: Yes Status: Acute Code(s): K65.1 - PERITONEAL ABSCESS SNOMED Code(s): 31699896 Plan: 1patient with a pelvic abscess in this patient found to have a history of metastatic rectal cancer with a previous surgery he now presents hospital with abdominal pain and CT has been suspicious for an abscess we will need to call for any data gram-negative with a likely pathogen awaiting surgical drainage 2patient is status post laparotomy drainage of the abscess unfortunately no cultures were done, patient did have colectomy and diverting colostomy 3-patient is afebrile and the white count is trending down, though cultures have been negative, patient will continue with Zosyn Time with Patient: Less than 30
[2022-08-20 09:23] LABS: African American GFR (CKD) >90 (>60 ml/min/1.73 sqM); Anion Gap 7 mmol/L; Blood Urea Nitrogen 11 mg/dL (9-20); Calcium 7.8 mg/dL (8.4-10.2); Carbon Dioxide 22 mmol/L (22-30); Chloride 109 mmol/L (98-107); Glucose 122 mg/dL (74-99); Non-African American GFR(CKD) >90 (>60 ml/min/1.73 sqM); Potassium 3.9 mmol/L (3.5-5.1); Sodium 138 mmol/L (137-145)
[2022-08-20 09:25] LABS: Anisocytosis Slight; Basophils # (A) 0.1 k/uL (0-0.2); Basophils % (A) 0 %; Eosinophils # (A) 0.5 k/uL (0-0.7); Eosinophils % (A) 3 %; HCT 28.5 % (39.0-53.0); HGB 8.1 gm/dL (13.0-17.5); Hypochromasia Marked; Lymphocytes # (A) 1.3 k/uL (1.0-4.8); Lymphocytes % (A) 8 %; MCH 23.5 pg (25.0-35.0); MCHC 28.5 g/dL (31.0-37.0); MCV 82.6 fL (80.0-100.0); Mean Platelet Volume 8.9; Microcytosis Slight; Monocytes # (A) 0.8 k/uL (0-1.0); Monocytes % (A) 5 %; Neutrophils # (A) 13.4 k/uL (1.3-7.7); Neutrophils % (A) 83 %; Platelet Count 889 k/uL (150-450); Poikilocytosis Slight; RBC 3.45 m/uL (4.30-5.90); RDW 19.9 % (11.5-15.5); WBC 16.2 k/uL (3.8-10.6)
--- NOTE | 2022-08-20 12:18 | P.PN ---
Subjective Progress Note Date: 08/20/22 CHIEF COMPLAINT: Presacral abscess HISTORY OF PRESENT ILLNESS: Patient is postop day #5 status post exploratory laparotomy with drainage of presacral abscess, partial colectomy with colostomy. Patient is currently on the cardiac floor. His ostomy is functioning. He does have abdominal pain. But is controlled with pain medication. Denies any nausea or vomiting. Afebrile. WBC is down from 18.4-16.2 hemoglobin 8.1 platelets 889 sodium 138 potassium 3.9 creatinine 0.83 PHYSICAL EXAM: VITAL SIGNS: Reviewed. GENERAL: Well-developed in no acute distress. HEENT: No sclera icterus. Extraocular movements grossly intact. Moist buccal mucosa. Head is atraumatic, normocephalic. ABDOMEN: Soft. Nondistended. Nontender. Incisional dressing clean dry and intact. Ostomy with pink stoma. HOLDEN drain with brownish output NEUROLOGIC: Alert and oriented. Cranial nerves II through XII grossly intact. ASSESSMENT: 1. Presacral abscess status post exploratory laparotomy with drainage of presacral abscess, partial colectomy with colostomy 2. History of metastatic rectal cancer with prior resection and resection of liver 3. History of leak at rectal surgical site requiring colostomy and then r eversal of colostomy 4. Urinary retention with mild bilateral hydronephrosis 5. Acute kidney injury resolved PLAN: -Continue full liquid diet -Consult PT OT -Encouraged patient to increase activity level -Encouraged patient to use oral pain medication -Continue antibiotics per ID service -Encouraged patient to use incentive spirometer -DVT prophylaxis subcu heparin and GI prophylaxis Proton[employer] Physician [employer]op [employer] Machine note has been reviewed by physician. Signing provider agrees with the documented findings, assessment, and plan of care. 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 Based on total visit time, I have performed more than 50% of the visit. As above: Patient doing better. Ostomy is functioning. Drain still with purulent fluid. Continue antibiotics. Advance diet as tolerated. Transfer to rehab in the next few days. Objective - Vital Signs Vital signs: Vital Signs Temp 98.7 F 08/20/22 07:32 Pulse 92 08/20/22 07:32 Resp 17 08/20/22 07:32 BP 127/80 08/20/22 07:32 Pulse Ox 98 08/20/22 07:32 FiO2 21 08/16/22 07:37 Intake & Output 08/19/22 08/20/22 08/20/22 18:59 06:59 18:59 Intake Total 500 Output Total 200 700 Balance -200 -200 Intake: Intake, IV Titration 200 Amount Piperacillin-Tazobactam 3 100 .375 gm In Sodium Chloride 0.9% 100 ml @ 25 mls/hr IVPB Q8H [facility] Rx#: [id number] metroNIDAZOLE-NS PMX 500 100 mg In Saline 1 100ml.bag @ 100 mls/hr IVPB Q6H [facility]ENG Rx#:[id number] Oral 300 Output: Drainage 0 Abdomen 0 Urine 500 Stool 200 200 Other: Voiding Method Indwelling Catheter Indwelling Catheter Indwelling Catheter # Bowel Movements 1 - Labs CBC & Chem 7: 08/20/22 08:54 08/20/22 08:54 Labs: Abnormal Lab Results - Last 24 Hours (Table) 08/20/22 08/20/22 Range/Units 08:54 08:54 WBC 16.2 H (3.8-10.6) k/uL RBC 3.45 L (4.30-5.90) m/uL Hgb 8.1 L (13.0-17.5) gm/dL Hct 28.5 L (39.0-53.0) % MCH 23.5 L (25.0-35.0) pg MCHC 28.5 L (31.0-37.0) g/dL RDW 19.9 H (11.5-15.5) % Plt Count 889 H (150-450) k/uL Neutrophils # 13.4 H (1.3-7.7) k/uL Chloride 109 H (98-107) mmol/L Glucose 122 H (74-99) mg/dL Calcium 7.8 L (8.4-10.2) mg/dL Microbiology - Last 24 Hours (Table) 08/14/22 18:34 Urine Culture - Final Urine,Catheterized 08/14/22 21:15 Blood Culture - Preliminary Blood No Growth after 120 hours
--- NOTE | 2022-08-20 12:57 | P.PN ---
Subjective Progress Note Date: 08/20/22 On 08/20/2002, the patient is postop day #5. The patient underwent a drainage of a presacral abscess with resection of a colostomy and repair of a ventral incisional hernia. The patient is known to have previous history of colon cancer with liver metastases and previous colectomy and colostomy and subsequent reversal back in January 2022. He also had a liver resection in 2018. He has been treated with systemic chemotherapy. The patient is currently postop day #5. He is doing well. Is taking some full liquid diet. In terms of antibiotic coverage, he remains on a combination of Zosyn and Flagyl. The patient's cultures including the blood culture came back negative. The white cell count is down to 16.2 from 25 with a hemoglobin of 8.1. The rest of the I's and O within normal limits. GI surgery is still on the case. Infectious disease also on the case for now. He is receiving IV antibiotics. He does have a HOLDEN drain in place and output is brownish, minimal at this point in time. His colostomy is sawing some output for now. Objective - Vital Signs Vital signs: Vital Signs Temp 98.7 F 08/20/22 07:32 Pulse 92 08/20/22 07:32 Resp 17 08/20/22 07:32 BP 127/80 08/20/22 07:32 Pulse Ox 98 08/20/22 07:32 FiO2 21 08/16/22 07:37 Intake & Output 08/19/22 08/20/22 08/20/22 18:59 06:59 18:59 Intake Total 500 Output Total 200 700 20 Balance -200 -200 -20 Intake: Intake, IV Titration 200 Amount Piperacillin-Tazobactam 3 100 .375 gm In Sodium Chloride 0.9% 100 ml @ 25 mls/hr IVPB Q8H [facility]ENG Rx#: [id number] metroNIDAZOLE-NS PMX 500 100 mg In Saline 1 100ml.bag @ 100 mls/hr IVPB Q6H [facility]ENG Rx#:[id number] Oral 300 Output: Drainage 0 20 Abdomen 0 20 Urine 500 Stool 200 200 Other: Voiding Method Indwelling Catheter Indwelling Catheter Indwelling Catheter # Bowel Movements 1 - Exam No acute distress, oriented 3. Currently on room air. No respiratory distress. HEENT examination is grossly unremarkable. Neck supple. Full range of motion. No adenopathy thyromegaly or neck vein distention. Cardiovascular examination reveals regular rhythm rate. S1-S2 normal. No S3 or S4. No discernible murmur noted. Heart rate 100 bpm. Lungs reveal clear breath sounds. Breath sounds are equal bilaterally. No adventitious lung sounds including wheezes rhonchi or crackles. Saturations on room air 98-99%. Abdomen soft bowel sounds are heard. No masses or tenderness. Colostomy noted, without blood. HOLDEN drain, 200 cc output /12 hr Extremities are intact. No cyanosis clubbing or edema. Skin is without rash or lesion. Neurologic examination is brief but nonfocal. - Labs CBC & Chem 7: 08/20/22 08:54 08/20/22 08:54 Labs: Abnormal Lab Results - Last 24 Hours (Table) 08/20/22 08/20/22 Range/Units 08:54 08:54 WBC 16.2 H (3.8-10.6) k/uL RBC 3.45 L (4.30-5.90) m/uL Hgb 8.1 L (13.0-17.5) gm/dL Hct 28.5 L (39.0-53.0) % MCH 23.5 L (25.0-35.0) pg MCHC 28.5 L (31.0-37.0) g/dL RDW 19.9 H (11.5-15.5) % Plt Count 889 H (150-450) k/uL Neutrophils # 13.4 H (1.3-7.7) k/uL Chloride 109 H (98-107) mmol/L Glucose 122 H (74-99) mg/dL Calcium 7.8 L (8.4-10.2) mg/dL Microbiology - Last 24 Hours (Table) 08/14/22 18:34 Urine Culture - Final Urine,Catheterized 08/14/22 21:15 Blood Culture - Preliminary Blood No Growth after 120 hours Assessment and Plan Plan: Abdominal pain and diarrhea secondary to a presacral abscess. Status post exploratory laparotomy with drainage of presacral abscess, partial colectomy with colostomy. Postoperative day #5 History of colon cancer with liver metastasis, receiving chemotherapy. Previous history of colon resection with colostomy and subsequent reversal. History of the liver resection. History of valve replacement, AVR bioprosthetic valve Plan: Continue the current antibiotic coverage The surgical onset of Xylocaine and intact Colostomy site is also functional Tolerating his diet Increased mobility
[2022-08-20] MEDS: oxyCODONE-APAP 5-325MG 1 EACH TAB PO PRN (13:42)
--- NOTE | 2022-08-20 14:26 | PN ---
PROGRESS NOTE SUBJECTIVE: This is -[id number] gentleman, who was admitted with presacral abscess with perforated rectum, had surgery. The patient improved. The patient is moved out of the ICU. No chest pain. No palpitation. OBJECTIVE: VITAL SIGNS: Pulse is 107, blood pressure 126/79, respirations 18. HEENT: Conjunctivae are normal. NECK: No JVD. CARDIOVASCULAR: S1 and S2. RESPIRATORY: Breath sounds diminished at the bases. Few scattered rhonchi. ABDOMEN: Soft. Status post surgery. LEGS: No edema. No swelling. LABORATORY DATA: Reviewed. ASSESSMENT: 1. Presacral abscess with perforated rectum, status post exploratory laparotomy and drainage of the abscess. 2. Metastatic rectal cancer. 3. Urinary tract infection. 4. Multiple medical issues. RECOMMENDATIONS: Recommend to continue current management and symptomatic treatment. Otherwise, closely follow with Surgery. Incentive spirometry. DVT prophylaxis. Further recommendations to follow. MMODL / IJN: [id number] /
--- NOTE | 2022-08-20 16:53 | P.PN ---
Subjective Progress Note Date: 08/20/22 This is a 61-year-old male who was recently admitted with abdominal pain with possible rectal perforation and sepsis, present on admission and is being closely monitored. Patient also was found to have significant renal failure with multiple medical consultations including oncology, infectious disease, general surgery following. Patient is postop drainage of the presacral abscess along with colectomy and end colostomy and is currently in the ICU under close observation. Nephrology following and kidney functions much improved with a creatinine of 1.09 which was 3 yesterday other labs reviewed including a WBC of 25.5 and hemoglobin is stable at 8.3. Patient is afebrile denies chest pain or shortness of breath. Patient reports his abdomen feels much improved although continues with weakness. Recommend PT/OT to evaluate the patient. Patient is currently being started on clear liquids and to advance slowly per surgery recommendations as tolerated. 08/17/2022 Patient is seen and evaluated in follow-up today continues to be in the ICU with multiple medical consultations following. Patient is postop colectomy with colostomy and reports no stool or gas noted as of yet. Patient does have HOLDEN drain of the presacral abscess noted with thick drainage noted. Patient is maintained on clear liquids and to continue per surgery recommendations. Patient is tolerating with no reports of nausea or vomiting although does have some abdominal discomfort. Patient is also maintained on IV antibiotics and recommend continue. WBC remains elevated at 24.4 although is less than yesterday, hemoglobin is 7.9, sodium is 139 with a potassium of 5.0 and current creatinine is improved at 0.82. Carcinoembryonic antigen is elevated at 1333. Other iron studies are low and ferritin is high. Vital signs stable currently and patient is currently on room air at 95% oxygen saturation. Patient is a febrile with no reports of chest pain or shortness of breath noted. 08/20/2022 Patient is seen and evaluated in follow-up this morning being closely monitored by general surgery services as attending. Patient is status post exploratory laparotomy with drainage of the presacral abscess with partial colectomy and colostomy. Patient is having bowel activity noted with stool along with gas in the ostomy and tolerating full liquid diet. Patient is weak and PT/OT therapy has been consulted. Patient encouraged to increase activity as tolerated and continue with pain management per surgery services. Patient is maintained on IV antibiotics and will continue. Discussed ECF for continued PT/OT therapy and patient is agreeable. Case management is following. Patient is afebrile with no reports of chest pain or shortness of breath. Patient is tolerating diet with no reports of nausea or vomiting noted. Review of systems: Constitutional: reports of fatigue, no reports of fever, or chills Cardiovascular: No reports of chest pain or palpitations Respiratory: No reports of shortness of breath or cough GI: No reports of nausea, no reports of of vomiting, reports of gas and bowel movement the ostomy : No reports of dysuria or retention Neurovascular: reports of generalized weakness All medications have been reviewed PHYSICAL EXAMINATION: GENERAL: The patient is alert and oriented x4, Well developed, well nourished. HEENT: Pupils are round and equally reacting to light. EOMI. no scleral icterus. No conjunctival pallor. Normocephalic, atraumatic. No pharyngeal erythema. No thyromegaly. CARDIOVASCULAR: S1 and S2 muffled PULMONARY: diminished breath sounds bilaterally with no wheezing or rhonchi noted. ABDOMEN: soft. Mildly tender on exam. non-distended, normoactive bowel sounds. No palpable organomegaly. Gas and stool noted in the ostomy MUSCULOSKELETAL: No joint swelling or deformity. EXTREMITIES: No cyanosis, clubbing, or pedal edema. NEUROLOGICAL: Gross neurological examination did not reveal any focal deficits. Diffuse weakness SKIN: No rashes. Assessment: Presacral abscess with perforated rectum Status post exploratory laparotomy with drainage of the presacral abscess along with partial colectomy with colostomy Metastatic rectal cancer Sepsis, present on admission secondary to presacral abscess Urinary tract infection, present on admission Increased WBC acute renal failure, possibly multifactorial secondary to obstructive uropathy and prerenal, improving Gastroesophageal reflux disease History of prostate disorder GI prophylaxis DVT prophylaxis Full code Plan: Recommend to continue with current medications and management with multiple medical consultations including general surgery, nephrology, oncology, and infectious disease following. Patient is postop laparoscopic drainage of the presacral abscess with partial colectomy and colostomy. Patient is currently maintained on full liquids and recommend to continue slowly advancing as tolerated per surgery recommendations. Bowel activity noted in the ostomy and also encouraged increased activity as tolerated with PT/OT therapy evaluation. Recommend ECF for continued strength and mobility and patient is agreeable. WBC continues to be elevated although trending down and patient is maintained on Flagyl and Zosyn and will continue with infectious disease following closely. Nephrology also following and patient is maintained on gentle IV hydration with a significant improvement since Penn catheter placement and continued fluids. recommend incentive spirometer, continuing with indwelling Penn catheter, and PT/OT evaluation once more stable. Recommend follow-up labs in the a.m and will continue to follow along closely with general surgery during hospitalization. Thank you kindly for this consultation. The impression and plan of care has been dictated by Johana Banks, nurse practitioner as directed. Dr. Tim MD I have performed a history and examination and MDM of this patient, discussed the same with the dictator, and agree with the dictator's assessment and plan as written ,documented as a scribe. Based on total visit time, I have performed more than 50% of the visit. Any additional findings or plans will be noted. Objective - Vital Signs Vital signs: Vital Signs Temp 98.7 F 08/20/22 07:32 Pulse 92 08/20/22 07:32 Resp 17 08/20/22 07:32 BP 127/80 08/20/22 07:32 Pulse Ox 98 08/20/22 07:32 FiO2 21 08/16/22 07:37 Intake & Output 08/19/22 08/20/22 08/20/22 18:59 06:59 18:59 Intake Total 500 Output Total 200 700 Balance -200 -200 Intake: Intake, IV Titration 200 Amount Piperacillin-Tazobactam 3 100 .375 gm In Sodium Chloride 0.9% 100 ml @ 25 mls/hr IVPB Q8H [facility]ENG Rx#: [id number] metroNIDAZOLE-NS PMX 500 100 mg In Saline 1 100ml.bag @ 100 mls/hr IVPB Q6H [facility]ENG Rx#:[id number] Oral 300 Output: Drainage 0 Abdomen 0 Urine 500 Stool 200 200 Other: Voiding Method Indwelling Catheter Indwelling Catheter Indwelling Catheter # Bowel Movements 1 - Labs CBC & Chem 7: 08/20/22 08:54 08/20/22 08:54 Labs: Abnormal Lab Results - Last 24 Hours (Table) 08/20/22 08/20/22 Range/Units 08:54 08:54 WBC 16.2 H (3.8-10.6) k/uL RBC 3.45 L (4.30-5.90) m/uL Hgb 8.1 L (13.0-17.5) gm/dL Hct 28.5 L (39.0-53.0) % MCH 23.5 L (25.0-35.0) pg MCHC 28.5 L (31.0-37.0) g/dL RDW 19.9 H (11.5-15.5) % Plt Count 889 H (150-450) k/uL Neutrophils # 13.4 H (1.3-7.7) k/uL Chloride 109 H (98-107) mmol/L Glucose 122 H (74-99) mg/dL Calcium 7.8 L (8.4-10.2) mg/dL Microbiology - Last 24 Hours (Table) 08/14/22 18:34 Urine Culture - Final Urine,Catheterized 08/14/22 21:15 Blood Culture - Preliminary Blood No Growth after 120 hours
--- NOTE | 2022-08-20 18:59 | P.PN ---
Subjective Progress Note Date: 08/20/22 Principal diagnosis: presacral abscess, metastatic rectal cancer Pt seen post op day 5, Out all the ICU. He has output from his ostomy. Patient is reporting adequate pain control. Objective - Vital Signs Vital signs: Vital Signs Temp 99.1 F 08/20/22 14:29 Pulse 105 H 08/20/22 14:29 Resp 17 08/20/22 14:29 BP 117/79 08/20/22 14:29 Pulse Ox 97 08/20/22 14:29 FiO2 21 08/16/22 07:37 Intake & Output 08/19/22 08/20/22 08/20/22 18:59 06:59 18:59 Intake Total 500 Output Total 200 700 550 Balance -200 -200 -550 Weight 59.9 kg Intake: Intake, IV Titration 200 Amount Piperacillin-Tazobactam 3 100 .375 gm In Sodium Chloride 0.9% 100 ml @ 25 mls/hr IVPB Q8H CHENG Rx#: [id number] metroNIDAZOLE-NS PMX 500 100 mg In Saline 1 100ml.bag @ 100 mls/hr IVPB Q6H CHENG Rx#:[id number] Oral 300 Output: Drainage 0 50 Abdomen 0 50 Urine 500 500 Stool 200 200 Other: Voiding Method Indwelling Catheter Indwelling Catheter Indwelling Catheter # Bowel Movements 1 - Constitutional General appearance: Present: average body habitus, cooperative, no acute distress - EENT Eyes: Present: anicteric sclerae, EOMI ENT: Present: hearing grossly normal - Respiratory Respiratory: bilateral: CTA - Cardiovascular Rhythm: regular Heart sounds: normal: S1, S2 Abnormal Heart Sounds: Absent: systolic murmur, diastolic murmur, rub, S3 Gallop, S4 Gallop, click, other - Gastrointestinal Gastrointestinal Comment(s): Left abdomen ostomy, dark brown liquid stool General gastrointestinal: Present: soft - Integumentary Integumentary: Present: normal - Neurologic Neurologic: Present: CNII-XII intact - Musculoskeletal Musculoskeletal: Present: generalized weakness - Psychiatric Psychiatric: Present: A&O x's 3, appropriate affect, intact judgment & insight - Labs CBC & Chem 7: 08/20/22 08:54 08/20/22 08:54 Labs: Abnormal Lab Results - Last 24 Hours (Table) 08/20/22 08/20/22 Range/Units 08:54 08:54 WBC 16.2 H (3.8-10.6) k/uL RBC 3.45 L (4.30-5.90) m/uL Hgb 8.1 L (13.0-17.5) gm/dL Hct 28.5 L (39.0-53.0) % MCH 23.5 L (25.0-35.0) pg MCHC 28.5 L (31.0-37.0) g/dL RDW 19.9 H (11.5-15.5) % Plt Count 889 H (150-450) k/uL Neutrophils # 13.4 H (1.3-7.7) k/uL Chloride 109 H (98-107) mmol/L Glucose 122 H (74-99) mg/dL Calcium 7.8 L (8.4-10.2) mg/dL Microbiology - Last 24 Hours (Table) 08/14/22 18:34 Urine Culture - Final Urine,Catheterized 08/14/22 21:15 Blood Culture - Preliminary Blood No Growth after 120 hours Assessment and Plan (1) Abscess, sacrum Current Visit: Yes Status: Acute Priority: High Code(s): M46.28 - OSTEOMYELITIS OF VERTEBRA, SACRAL AND SACROCOCCYGEAL REGION SNOMED Code(s): 479498316 (2) Rectal adenocarcinoma Current Visit: No Status: Chronic Priority: Medium Code(s): C20 - MALIGNANT NEOPLASM OF RECTUM SNOMED Code(s): 732547179 (3) Anemia Current Visit: Yes Status: Chronic Priority: Medium Code(s): D64.9 - ANEMIA, UNSPECIFIED SNOMED Code(s): 195766030 Plan: Patient cont to do well postop. Hold any chemo treatment for about 4-6 weeks post op. Appt at the Oncologist office adjusted, chemo held until after any rehab and surgical recovery. Pt can see how he feels after some rehab and recovery time. Progressive anemia. CBC monitoring. Iron studies most suggestive of inflamm ation. This will be rechecked after patient has recovered from abscess and surgery. CEA in office about 1 month ago was greater than 3000. Currently 1333
[2022-08-21] MEDS: HYDROmorphone 1 MG/ML 1 ML SYRINGE IVP PRN ×3 (02:54→13:40)
[2022-08-21] MEDS: PIPERACILLIN-TAZOBACTAM 3.375 GM in SODIUM CHLORIDE 0.9% 100 ML IVPB SCH ×3 (05:32→19:29)
[2022-08-21] MEDS: metroNIDAZOLE-NS PMX 500 MG in SALINE 1 100ML.BAG IVPB SCH ×4 (05:33→23:11)
[2022-08-21] MEDS: PANTOPRAZOLE 40 MG/10 ML VIAL IVP SCH ×2 (09:04→21:05)
[2022-08-21] MEDS: MIRTAZAPINE 15 MG TAB PO SCH (09:04)
[2022-08-21] MEDS: HEPARIN SODIUM,PORCINE/PF 5,000 UNIT/0.5 ML SYRINGE SQ SCH ×2 (09:04→21:05)
[2022-08-21 09:46] LABS: Anisocytosis Moderate; Basophils # (A) 0.1 k/uL (0-0.2); Basophils % (A) 0 %; Eosinophils # (A) 0.4 k/uL (0-0.7); Eosinophils % (A) 3 %; HCT 28.6 % (39.0-53.0); HGB 7.8 gm/dL (13.0-17.5); Hypochromasia Marked; Lymphocytes # (A) 1.2 k/uL (1.0-4.8); Lymphocytes % (A) 8 %; MCH 22.7 pg (25.0-35.0); MCHC 27.4 g/dL (31.0-37.0); MCV 82.8 fL (80.0-100.0); Mean Platelet Volume 8.3; Microcytosis Slight; Monocytes # (A) 0.8 k/uL (0-1.0); Monocytes % (A) 5 %; Neutrophils # (A) 12.8 k/uL (1.3-7.7); Neutrophils % (A) 83 %; Platelet Count 924 k/uL (150-450); Poikilocytosis Slight; RBC 3.46 m/uL (4.30-5.90); RDW 20.2 % (11.5-15.5); WBC 15.5 k/uL (3.8-10.6)
--- NOTE | 2022-08-21 10:27 | P.PN ---
Subjective Progress Note Date: 08/20/22 Principal diagnosis: Intra-abdominal/pelvic abscess Patient is a 61-year-old male with a past medical history significant for metastatic rectal cancer initial diagnosis 2018 subsequently presented to hospital with abdominal pain seemed abdominal pelvis that shows evidence of possible abscess patient was taken to the OR on 08/15/2022 this patient who is status post exploratory laparotomy with drainage of presacral abscess partial colectomy with colostomy no OR culture were done. On today's evaluation that is 08/20/2022 the patient remains to be afebrile, the patient is breathing comfortably on room air, patient lower abdominal pain has decreased in intensity, the patient denies any chest pain or shortness of breath or cough no nausea no vomiting, patient has been tolerating his diet and no new symptoms Objective - Vital Signs Vital signs: Vital Signs Temp 98.7 F 08/20/22 07:32 Pulse 92 08/20/22 07:32 Resp 17 08/20/22 07:32 BP 127/80 08/20/22 07:32 Pulse Ox 98 08/20/22 07:32 FiO2 21 08/16/22 07:37 Intake & Output 08/19/22 08/20/22 08/20/22 18:59 06:59 18:59 Intake Total 500 Output Total 200 700 20 Balance -200 -200 -20 Intake: Intake, IV Titration 200 Amount Piperacillin-Tazobactam 3 100 .375 gm In Sodium Chloride 0.9% 100 ml @ 25 mls/hr IVPB Q8H [facility] Rx#: [id number] metroNIDAZOLE-NS PMX 500 100 mg In Saline 1 100ml.bag @ 100 mls/hr IVPB Q6H [facility] Rx#:[id number] Oral 300 Output: Drainage 0 20 Abdomen 0 20 Urine 500 Stool 200 200 Other: Voiding Method Indwelling Catheter Indwelling Catheter Indwelling Catheter # Bowel Movements 1 - Exam GENERAL DESCRIPTION: Middle-aged male lying in bed in no distress RESPIRATORY SYSTEM: Unlabored breathing , decreased breath sounds at bases HEART: S1 S2 regular rate and rhythm , ABDOMEN: Soft , midline incision is intact no tenderness EXTREMITIES: No edema feet - Labs CBC & Chem 7: 08/21/22 09:03 08/20/22 08:54 Labs: Abnormal Lab Results - Last 24 Hours (Table) 08/20/22 08/20/22 Range/Units 08:54 08:54 WBC 16.2 H (3.8-10.6) k/uL RBC 3.45 L (4.30-5.90) m/uL Hgb 8.1 L (13.0-17.5) gm/dL Hct 28.5 L (39.0-53.0) % MCH 23.5 L (25.0-35.0) pg MCHC 28.5 L (31.0-37.0) g/dL RDW 19.9 H (11.5-15.5) % Plt Count 889 H (150-450) k/uL Neutrophils # 13.4 H (1.3-7.7) k/uL Chloride 109 H (98-107) mmol/L Glucose 122 H (74-99) mg/dL Calcium 7.8 L (8.4-10.2) mg/dL Microbiology - Last 24 Hours (Table) 08/14/22 18:34 Urine Culture - Final Urine,Catheterized 08/14/22 21:15 Blood Culture - Preliminary Blood No Growth after 120 hours Assessment and Plan (1) Intra-abdominal abscess Current Visit: Yes Status: Acute Code(s): K65.1 - PERITONEAL ABSCESS SNOMED Code(s): 02781166 Plan: 1patient with a pelvic abscess in this patient found to have a history of metastatic rectal cancer with a previous surgery he now presents hospital with abdominal pain and CT has been suspicious for an abscess we will need to call for any data gram-negative with a likely pathogen awaiting surgical drainage 2patient is status post laparotomy drainage of the abscess unfortunately no cultures were done, patient did have colectomy and diverting colostomy 3-patient is afebrile and the white count is slowly trending down, blood cultures have been negative, patient will continue with Zosyn and monitor his clinical course closely Time with Patient: Less than 30
[2022-08-21] MEDS: oxyCODONE-APAP 5-325MG 1 EACH TAB PO PRN ×2 (10:42→21:05)
--- NOTE | 2022-08-21 12:43 | P.PN ---
Subjective Progress Note Date: 08/21/22 CHIEF COMPLAINT: Presacral abscess HISTORY OF PRESENT ILLNESS: Patient is postop day #6 status post exploratory laparotomy with drainage of presacral abscess, partial colectomy with colostomy. Patient is currently on the cardiac floor. His ostomy is functioning. He does have abdominal pain. But is controlled with pain medication. He has required IV pain medication. Denies any nausea or vomiting. Afebrile. WBC trending down from 16-15.5 hemoglobin 7.8 HOLDEN drain with total of 50 mL brownish output yesterday PHYSICAL EXAM: VITAL SIGNS: Reviewed. GENERAL: Well-developed in no acute distress. HEENT: No sclera icterus. Extraocular movements grossly intact. Moist buccal mucosa. Head is atraumatic, normocephalic. ABDOMEN: Soft. Nondistended. Nontender. Incisional dressing clean dry and i ntact. Ostomy with pink stoma. HOLDEN drain with brownish output NEUROLOGIC: Alert and oriented. Cranial nerves II through XII grossly intact. ASSESSMENT: 1. Presacral abscess status post exploratory laparotomy with drainage of presacral abscess, partial colectomy with colostomy 2. History of metastatic rectal cancer with prior resection and resection of liver 3. History of leak at rectal surgical site requiring colostomy and then reversal of colostomy 4. Urinary retention with mild bilateral hydronephrosis 5. Acute kidney injury resolved PLAN: -Anticipate discharge to [facility] within the next 1-2 days once cleared by all consultants -Await discharge antibiotic recommendations per ID -Continue regular diet -continue to work with PT OT -Encouraged patient to increase activity level -Encouraged patient to use oral pain medication -Encouraged patient to use incentive spirometer -DVT prophylaxis subcu heparin and GI prophylaxis Protonix Physician Ham Boner note has been reviewed by physician. Signing provider agrees with the documented findings, assessment, and plan of care. I have personally seen and examined the patient, reviewed the [facility]OOK /PAs history, exam and MDM and agree with the assessment and plan as written. Based on total visit time, I have performed more than 50% of the visit. As above: Patient complaining of some fatigue. Tolerating solid foods. Ostomy is functioning. Incision is clean and dry. Continue antibiotics. Probable transfer to [facility] on the [place] in the next 24-48 hours. Objective - Vital Signs Vital signs: Vital Signs Temp 98.6 F 08/21/22 12:35 Pulse 86 08/21/22 12:35 Resp 16 08/21/22 12:35 BP 112/77 08/21/22 12:35 Pulse Ox 95 08/21/22 08:00 FiO2 21 08/16/22 07:37 Intake & Output 08/20/22 08/21/22 08/21/22 18:59 06:59 18:59 Output Total 550 350 Balance -550 -350 Weight 59.9 kg Output: Drainage 50 Abdomen 50 Urine 500 350 Other: Voiding Method Indwelling Catheter Indwelling Catheter - Labs CBC & Chem 7: 08/21/22 09:03 08/20/22 08:54 Labs: Abnormal Lab Results - Last 24 Hours (Table) 08/21/22 Range/Units 09:03 WBC 15.5 H (3.8-10.6) k/uL RBC 3.46 L (4.30-5.90) m/uL Hgb 7.8 L (13.0-17.5) gm/dL Hct 28.6 L (39.0-53.0) % MCH 22.7 L (25.0-35.0) pg MCHC 27.4 L (31.0-37.0) g/dL RDW 20.2 H (11.5-15.5) % Plt Count 924 H (150-450) k/uL Neutrophils # 12.8 H (1.3-7.7) k/uL Microbiology - Last 24 Hours (Table) 08/14/22 21:15 Blood Culture - Final Blood No Growth after 144 hours 08/14/22 18:34 Urine Culture - Final Urine,Catheterized
--- NOTE | 2022-08-21 13:48 | P.PN ---
Subjective Progress Note Date: 08/21/22 On 08/21/2022, the patient is postop day #6. Doing well. No specific complaints. He underwent a drainage of a presacral abscess with resection of the colostomy and repair of a ventral incisional hernia. He remains on the same antibiotic coverage with a combination of Zosyn and Flagyl. No fever no chills. The white cell count is 15.5 with a hemoglobin of 7.8 and a platelet by 24. HOLDEN drain is in place and output is minimal brownish in color and the cultures are essentially negative from the blood. He has adequate output from his colostomy. Just surgeries on the case. Is a case of colon cancer with liver metastases and the patient is alert on previous colectomy and colostomy and subsequently reversal back in 2021. Patient also has undergone a liver resection of the tumor back in and . Objective - Vital Signs Vital signs: Vital Signs Temp 98.6 F 08/21/22 12:35 Pulse 86 08/21/22 12:35 Resp 16 08/21/22 12:35 BP 112/77 08/21/22 12:35 Pulse Ox 95 08/21/22 08:00 FiO2 21 08/16/22 07:37 Intake & Output 08/20/22 08/21/22 08/21/22 18:59 06:59 18:59 Output Total 550 350 Balance -550 -350 Weight 59.9 kg Output: Drainage 50 Abdomen 50 Urine 500 350 Other: Voiding Method Indwelling Catheter Indwelling Catheter - Exam No acute distress, oriented 3. Currently on room air. No respiratory distre ss. HEENT examination is grossly unremarkable. Neck supple. Full range of motion. No adenopathy thyromegaly or neck vein distention. Cardiovascular examination reveals regular rhythm rate. S1-S2 normal. No S3 or S4. No discernible murmur noted. Heart rate 100 bpm. Lungs reveal clear breath sounds. Breath sounds are equal bilaterally. No adventitious lung sounds including wheezes rhonchi or crackles. Saturations on room air 98-99%. Abdomen soft bowel sounds are heard. No masses or tenderness. Colostomy noted, without blood. HOLDEN drain, 200 cc output /12 hr Extremities are intact. No cyanosis clubbing or edema. Skin is without rash or lesion. Neurologic examination is brief but nonfocal. - Labs CBC & Chem 7: 08/21/22 09:03 08/20/22 08:54 Labs: Abnormal Lab Results - Last 24 Hours (Table) 08/21/22 Range/Units 09:03 WBC 15.5 H (3.8-10.6) k/uL RBC 3.46 L (4.30-5.90) m/uL Hgb 7.8 L (13.0-17.5) gm/dL Hct 28.6 L (39.0-53.0) % MCH 22.7 L (25.0-35.0) pg MCHC 27.4 L (31.0-37.0) g/dL RDW 20.2 H (11.5-15.5) % Plt Count 924 H (150-450) k/uL Neutrophils # 12.8 H (1.3-7.7) k/uL Microbiology - Last 24 Hours (Table) 08/14/22 21:15 Blood Culture - Final Blood No Growth after 144 hours Assessment and Plan Plan: Abdominal pain and diarrhea secondary to a presacral abscess. Status post exploratory laparotomy with drainage of presacral abscess, partial colectomy with colostomy. Postoperative day #6 History of colon cancer with liver metastasis, receiving chemotherapy. Previous history of colon resection with colostomy and subsequent reversal. History of the liver resection. History of valve replacement, AVR bioprosthetic valve Plan: Continue the current antibiotic coverage Patient is ambulating Patient is advancing his diet Colostomy is functional This discharge planning is in progress and the patient is looking to go to [facility] on the [place]
[2022-08-22] MEDS: oxyCODONE-APAP 5-325MG 1 EACH TAB PO PRN ×2 (02:50→10:23)
[2022-08-22] MEDS: metroNIDAZOLE-NS PMX 500 MG in SALINE 1 100ML.BAG IVPB SCH ×4 (04:16→22:41)
[2022-08-22] MEDS: PIPERACILLIN-TAZOBACTAM 3.375 GM in SODIUM CHLORIDE 0.9% 100 ML IVPB SCH ×3 (04:17→19:40)
--- NOTE | 2022-08-22 05:50 | P.PN ---
Subjective Progress Note Date: 08/21/22 This is a 61-year-old male who was recently admitted with abdominal pain with possible rectal perforation and sepsis, present on admission and is being closely monitored. Patient also was found to have significant renal failure with multiple medical consultations including oncology, infectious disease, general surgery following. Patient is postop drainage of the presacral abscess along with colectomy and end colostomy and is currently in the ICU under close observation. Nephrology following and kidney functions much improved with a creatinine of 1.09 which was 3 yesterday other labs reviewed including a WBC of 25.5 and hemoglobin is stable at 8.3. Patient is afebrile denies chest pain or shortness of breath. Patient reports his abdomen feels much improved although continues with weakness. Recommend PT/OT to evaluate the patient. Patient is currently being started on clear liquids and to advance slowly per surgery recommendations as tolerated. 08/17/2022 Patient is seen and evaluated in follow-up today continues to be in the ICU with multiple medical consultations following. Patient is postop colectomy with colostomy and reports no stool or gas noted as of yet. Patient does have HOLDEN drain of the presacral abscess noted with thick drainage noted. Patient is maintained on clear liquids and to continue per surgery recommendations. Patient is tolerating with no reports of nausea or vomiting although does have some abdominal discomfort. Patient is also maintained on IV antibiotics and recommend continue. WBC remains elevated at 24.4 although is less than yesterday, hemoglobin is 7.9, sodium is 139 with a potassium of 5.0 and current creatinine is improved at 0.82. Carcinoembryonic antigen is elevated at 1333. Other iron studies are low and ferritin is high. Vital signs stable currently and patient is currently on room air at 95% oxygen saturation. Patient is a febrile with no reports of chest pain or shortness of breath noted. 08/20/2022 Patient is seen and evaluated in follow-up this morning being closely monitored by general surgery services as attending. Patient is status post exploratory laparotomy with drainage of the presacral abscess with partial colectomy and colostomy. Patient is having bowel activity noted with stool along with gas in the ostomy and tolerating full liquid diet. Patient is weak and PT/OT therapy has been consulted. Patient encouraged to increase activity as tolerated and continue with pain management per surgery services. Patient is maintained on IV antibiotics and will continue. Discussed ECF for continued PT/OT therapy and patient is agreeable. Case management is following. Patient is afebrile with no reports of chest pain or shortness of breath. Patient is tolerating diet with no reports of nausea or vomiting noted. 08/21/2022 Patient is seen this morning and reports to feeling somewhat better. Still reports fatigue at times. PT/OT following and recommending ECF. Case management is following and working on facilities. Patient is continued on IV abx with ID following and awaiting abx recommendations for discharge. Patient is tolerating diet and continued stool and gas in the ostomy. Encouraged increased activity as tolerated. Patient currently afebrile and WBC is trending down. Patient denies chest pain or shortness of breath. Review of systems: Constitutional: reports of fatigue, no reports of fever, or chills Cardiovascular: No reports of chest pain or palpitations Respiratory: No reports of shortness of breath or cough GI: No reports of nausea, no reports of of vomiting, reports of gas and bowel movement the ostomy : No reports of dysuria or retention Neurovascular: reports of generalized weakness All medications have been reviewed PHYSICAL EXAMINATION: GENERAL: The patient is alert and oriented x4, Well developed, well nourished. HEENT: Pupils are round and equally reacting to light. EOMI. no scleral icterus. No conjunctival pallor. Normocephalic, atraumatic. No pharyngeal erythema. No thyromegaly. CARDIOVASCULAR: S1 and S2 muffled PULMONARY: diminished breath sounds bilaterally with no wheezing or rhonchi noted. ABDOMEN: soft. Mildly tender on exam. non-distended, normoactive bowel sounds. No palpable organomegaly. Gas and stool noted in the ostomy MUSCULOSKELETAL: No joint swelling or deformity. EXTREMITIES: No cyanosis, clubbing, or pedal edema. NEUROLOGICAL: Gross neurological examination did not reveal any focal deficits. Diffuse weakness SKIN: No rashes. Assessment: Presacral abscess with perforated rectum Status post exploratory laparotomy with drainage of the presacral abscess along with partial colectomy with colostomy Metastatic rectal cancer Sepsis, present on admission secondary to presacral abscess Urinary tract infection, present on admission Increased WBC acute renal failure, possibly multifactorial secondary to obstructive uropathy and prerenal, improving Gastroesophageal reflux disease History of prostate disorder GI prophylaxis DVT prophylaxis Full code Plan: Recommend to continue with current medications and management with multiple medical consultations including general surgery, nephrology, oncology, and infectious disease following. Patient is postop laparoscopic drainage of the presacral abscess with partial colectomy and colostomy. Patient is currently maintained on full liquids and recommend to continue slowly advancing as tolerated per surgery recommendations. Bowel activity noted in the ostomy and also encouraged increased activity as tolerated with PT/OT therapy evaluation. Recommend ECF for continued strength and mobility and patient is agreeable. WBC continues to be elevated although trending down and patient is maintained on Flagyl and Zosyn and will continue with infectious disease following closely. Awaiting discharge antibiotic recommendations per ID. Nephrology also following and patient is maintained on gentle IV hydration with a significant improvement since Penn catheter placement and continued fluids. recommend incentive spirometer, continuing with indwelling Penn catheter. We will continue to follow along closely with general surgery during hospitalization. Thank you kindly for this consultation. The impression and plan of care has been dictated by Johana Banks, nurse practitioner as directed. Dr. Tim MD I have performed a history and examination and MDM of this patient, discussed the same with the dictator, and agree with the dictator's assessment and plan as written ,documented as a scribe. Based on total visit time, I have performed more than 50% of the visit. Any additional findings or plans will be noted. Objective - Vital Signs Vital signs: Vital Signs Temp 98.5 F 08/22/22 02:28 Pulse 90 08/22/22 02:28 Resp 16 08/22/22 02:28 BP 128/82 08/22/22 02:28 Pulse Ox 97 08/22/22 02:28 FiO2 21 08/16/22 07:37 Intake & Output 08/21/22 08/21/22 08/22/22 06:59 18:59 06:59 Intake Total 200 880 Output Total 350 725 553 Balance -350 -525 327 Intake: IV 200 Piperacillin-Tazobactam 3 200 .375 gm In Sodium Chloride 0.9% 100 ml @ 25 mls/hr IVPB Q8H [facility] Rx#: [id number] Intake, IV Titration 400 Amount Piperacillin-Tazobactam 3 200 .375 gm In Sodium Chloride 0.9% 100 ml @ 25 mls/hr IVPB Q8H [facility] Rx#: [id number] metroNIDAZOLE-NS PMX 500 200 mg In Saline 1 100ml.bag @ 100 mls/hr IVPB Q6H [facility] Rx#:[id number] Oral 480 Output: Drainage 3 Abdomen 3 Urine 350 425 500 Uretheral (Penn) 500 Stool 300 50 Other: Voiding Method Indwelling Catheter Indwelling Catheter # Voids 2 - Labs CBC & Chem 7: 08/21/22 09:03 08/20/22 08:54 Labs: Abnormal Lab Results - Last 24 Hours (Table) 08/21/22 Range/Units 09:03 WBC 15.5 H (3.8-10.6) k/uL RBC 3.46 L (4.30-5.90) m/uL Hgb 7.8 L (13.0-17.5) gm/dL Hct 28.6 L (39.0-53.0) % MCH 22.7 L (25.0-35.0) pg MCHC 27.4 L (31.0-37.0) g/dL RDW 20.2 H (11.5-15.5) % Plt Count 924 H (150-450) k/uL Neutrophils # 12.8 H (1.3-7.7) k/uL
--- NOTE | 2022-08-22 10:59 | P.PN ---
Subjective Progress Note Date: 08/22/22 CHIEF COMPLAINT: Presacral abscess HISTORY OF PRESENT ILLNESS: Patient is postop day #7 status post exploratory laparotomy with drainage of presacral abscess, partial colectomy with colostomy. Patient complains of abdominal pain. He is still requiring the IV pain medication. He denies any nausea or vomiting. He is tolerating diet. Ostomy is functioning. Afebrile. CBC for today pending. HOLDEN drain purulent output. Patient did pass brownish liquid from rectum. PHYSICAL EXAM: VITAL SIGNS: Reviewed. GENERAL: Well-developed in no acute distress. HEENT: No sclera icterus. Extraocular movements grossly intact. Moist buccal mucosa. Head is atraumatic, normocephalic. ABDOMEN: Soft. Nondistended. diffuse tenderness. Incisional dressing clean dry and intact. Ostomy with pink stoma. HOLDEN drain purulent output NEUROLOGIC: Alert and oriented. Cranial nerves II through XII grossly intact. ASSESSMENT: 1. Presacral abscess status post exploratory laparotomy with drainage of presacral abscess, partial colectomy with colostomy 2. History of metastatic rectal cancer with prior resection and resection of liver 3. History of leak at rectal surgical site requiring colostomy and then rever pedro of colostomy 4. Urinary retention with mild bilateral hydronephrosis 5. Acute kidney injury resolved PLAN: -Anticipate discharge to [facility] tomorrow once cleared by all consultants -Await discharge antibiotic recommendations per ID -Increased Percocet to 10 mg every 4 hours as needed for pain. Educated patient to cut back on the IV pain medication. -Continue regular diet -continue to work with PT OT -Encouraged patient to increase activity level -Encouraged patient to use incentive spirometer -DVT prophylaxis subcu heparin and GI prophylaxis Protonix Physician Chief Of Safety And Protection note has been reviewed by physician. Signing provider agrees with the documented findings, assessment, and plan of care. Objective - Vital Signs Vital signs: Vital Signs Temp 98.7 F 08/22/22 07:42 Pulse 87 08/22/22 07:42 Resp 16 08/22/22 07:42 BP 118/72 08/22/22 07:42 Pulse Ox 93 L 08/22/22 07:42 FiO2 21 08/16/22 07:37 Intake & Output 08/21/22 08/22/22 08/22/22 18:59 06:59 18:59 Intake Total 200 880 Output Total 725 553 Balance -525 327 Intake: IV 200 Piperacillin-Tazobactam 3 200 .375 gm In Sodium Chloride 0.9% 100 ml @ 25 mls/hr IVPB Q8H [facility] Rx#: [id number] Intake, IV Titration 400 Amount Piperacillin-Tazobactam 3 200 .375 gm In Sodium Chloride 0.9% 100 ml @ 25 mls/hr IVPB Q8H [facility] Rx#: [id number] metroNIDAZOLE-NS PMX 500 200 mg In Saline 1 100ml.bag @ 100 mls/hr IVPB Q6H [facility] Rx#:[id number] Oral 480 Output: Drainage 3 Abdomen 3 Urine 425 500 Uretheral ([facility]) 500 Stool 300 50 Other: Voiding Method Indwelling Catheter # Voids 2 - Labs CBC & Chem 7: 08/21/22 09:03 08/20/22 08:54
[2022-08-22] MEDS: HEPARIN SODIUM,PORCINE/PF 5,000 UNIT/0.5 ML SYRINGE SQ SCH ×2 (11:58→21:14)
[2022-08-22] MEDS: PANTOPRAZOLE 40 MG/10 ML VIAL IVP SCH ×2 (11:59→21:14)
[2022-08-22] MEDS: MIRTAZAPINE 15 MG TAB PO SCH (11:59)
[2022-08-22 13:14] LABS: Anisocytosis Moderate; HCT 28.8 % (39.0-53.0); Hypochromasia Marked; MCH 23.3 pg (25.0-35.0); MCHC 27.8 g/dL (31.0-37.0); MCV 83.7 fL (80.0-100.0); Mean Platelet Volume 9.1; Microcytosis Slight; Platelet Count 910 k/uL (150-450); Poikilocytosis Slight; RBC 3.44 m/uL (4.30-5.90); RDW 20.6 % (11.5-15.5); WBC 13.5 k/uL (3.8-10.6)
[2022-08-22 13:54] LABS: Eosinophils # (M) 0.14 k/uL (0-0.7); Lymphocytes # (M) 1.35 k/uL (1.0-4.8); Monocytes # (M) 1.49 k/uL (0-1.0); Neutrophils # (M) 10.67 k/uL (1.3-7.7); Neutrophils % (M) 79 %; Nucleated Red Blood Cells 0 /100 WBC (0-0); Target Cells Present; Total Cells Counted 200
[2022-08-22 13:57] LABS: Polychromasia Present
[2022-08-22] MEDS: oxyCODONE-APAP 10-325MG 1 EACH TAB PO PRN ×2 (14:09→19:40)
--- NOTE | 2022-08-22 15:45 | P.PN ---
Subjective Progress Note Date: 08/22/22 This is a 61-year-old male who was recently admitted with abdominal pain with possible rectal perforation and sepsis, present on admission and is being closely monitored. Patient also was found to have significant renal failure with multiple medical consultations including oncology, infectious disease, general surgery following. Patient is postop drainage of the presacral abscess along with colectomy and end colostomy and is currently in the ICU under close observation. Nephrology following and kidney functions much improved with a creatinine of 1.09 which was 3 yesterday other labs reviewed including a WBC of 25.5 and hemoglobin is stable at 8.3. Patient is afebrile denies chest pain or shortness of breath. Patient reports his abdomen feels much improved although continues with weakness. Recommend PT/OT to evaluate the patient. Patient is currently being started on clear liquids and to advance slowly per surgery recommendations as tolerated. 08/17/2022 Patient is seen and evaluated in follow-up today continues to be in the ICU with multiple medical consultations following. Patient is postop colectomy with colostomy and reports no stool or gas noted as of yet. Patient does have HOLDEN drain of the presacral abscess noted with thick drainage noted. Patient is maintained on clear liquids and to continue per surgery recommendations. Patient is tolerating with no reports of nausea or vomiting although does have some abdominal discomfort. Patient is also maintained on IV antibiotics and recommend continue. WBC remains elevated at 24.4 although is less than yesterday, hemoglobin is 7.9, sodium is 139 with a potassium of 5.0 and current creatinine is improved at 0.82. Carcinoembryonic antigen is elevated at 1333. Other iron studies are low and ferritin is high. Vital signs stable currently and patient is currently on room air at 95% oxygen saturation. Patient is a febrile with no reports of chest pain or shortness of breath noted. 08/20/2022 Patient is seen and evaluated in follow-up this morning being closely monitored by general surgery services as attending. Patient is status post exploratory laparotomy with drainage of the presacral abscess with partial colectomy and colostomy. Patient is having bowel activity noted with stool along with gas in the ostomy and tolerating full liquid diet. Patient is weak and PT/OT therapy has been consulted. Patient encouraged to increase activity as tolerated and continue with pain management per surgery services. Patient is maintained on IV antibiotics and will continue. Discussed ECF for continued PT/OT therapy and patient is agreeable. Case management is following. Patient is afebrile with no reports of chest pain or shortness of breath. Patient is tolerating diet with no reports of nausea or vomiting noted. 08/21/2022 Patient is seen this morning and reports to feeling somewhat better. Still reports fatigue at times. PT/OT following and recommending ECF. Case management is following and working on facilities. Patient is continued on IV abx with ID following and awaiting abx recommendations for discharge. Patient is tolerating diet and continued stool and gas in the ostomy. Encouraged increased activity as tolerated. Patient currently afebrile and WBC is trending down. Patient denies chest pain or shortness of breath. 08/22/2022 Agent is seen and evaluated in follow-up this morning no acute overnight issues. Patient is tolerating diet and maintained on IV antibiotics with infectious disease following. General surgery as admitting working on discharge planning and patient will be returning [facility] [place]. Patient with overall weakness recommending physical therapy daily. CBC is trending down and 13.5 today patient is afebrile and hemoglobin remained stable at 8.0. Continued ostomy output noted and patient is maintained on regular diet with no reports of nausea or vomiting noted. Encourage increase activity as tolerated and will follow-up with repeat labs in a.m. Anticipating discharge in 24 hours. Review of systems: Constitutional: reports of fatigue, no reports of fever, or chills Cardiovascular: No reports of chest pain or palpitations Respiratory: No reports of shortness of breath or cough GI: No reports of nausea, no reports of of vomiting, reports of gas and bowel movement the ostomy : No reports of dysuria or retention Neurovascular: reports of generalized weakness All medications have been reviewed Active Medications Chlorpromazine HCl (Chlorpromazine 25 Mg Tab) 50 mg PO TID PRN PRN Reason: hiccups Heparin Sodium (Porcine) (Heparin Sodium,Porcine/Pf 5,000 Unit/0.5 Ml Syringe) 5,000 unit SQ Q12HR CHENG Last Admin: 08/22/22 11:58 Dose: 5,000 unit Hydromorphone HCl (Hydromorphone 1 Mg/Ml 1 Ml Syringe) 1 mg IVP Q2H PRN PRN Reason: Moderate to Severe Pain Last Admin: 08/21/22 13:40 Dose: 1 mg Piperacillin Sod/Tazobactam (Sod 3.375 gm/ Sodium Chloride) 100 mls @ 25 mls/hr IVPB Q8H [facility]; Protocol Last Admin: 08/22/22 11:43 Dose: 25 mls/hr Metronidazole 500 mg/ IV (Solution) 100 mls @ 100 mls/hr IVPB Q6H CHENG; Protocol Last Admin: 08/22/22 10:17 Dose: 100 mls/hr Mirtazapine (Mirtazapine 15 Mg Tab) 7.5 mg PO DAILY [facility] Last Admin: 08/22/22 11:59 Dose: 7.5 mg Naloxone HCl (Naloxone 0.4 Mg/Ml 1 Ml Vial) 0.2 mg IV Q2M PRN PRN Reason: Opioid Reversal Ondansetron HCl (Ondansetron 4 Mg/2 Ml Vial) 4 mg IVP Q6HR PRN PRN Reason: Nausea And Vomiting Last Admin: 08/16/22 12:31 Dose: 4 mg Oxycodone/Acetaminophen (Oxycodone-Apap 10-325mg 1 Each Tab) 1 each PO Q4HR PRN PRN Reason: Pain Last Admin: 08/22/22 14:09 Dose: 1 each Pantoprazole Sodium (Pantoprazole 40 Mg/10 Ml Vial) 40 mg IVP BID [facility] Last Admin: 08/22/22 11:59 Dose: 40 mg PHYSICAL EXAMINATION: GENERAL: The patient is alert and oriented x4, Well developed, well nourished. HEENT: Pupils are round and equally reacting to light. EOMI. no scleral icterus. No conjunctival pallor. Normocephalic, atraumatic. No pharyngeal erythema. No thyromegaly. CARDIOVASCULAR: S1 and S2 muffled PULMONARY: diminished breath sounds bilaterally with no wheezing or rhonchi noted. ABDOMEN: soft. non tender on exam. non-distended, normoactive bowel sounds. No palpable organomegaly. Gas and stool noted in the ostomy MUSCULOSKELETAL: No joint swelling or deformity. EXTREMITIES: No cyanosis, clubbing, or pedal edema. NEUROLOGICAL: Gross neurological examination did not reveal any focal deficits. Diffuse weakness SKIN: No rashes. Assessment: Presacral abscess with perforated rectum Status post exploratory laparotomy with drainage of the presacral abscess along with partial colectomy with colostomy Metastatic rectal cancer Sepsis, present on admission secondary to presacral abscess Urinary tract infection, present on admission Increased WBC acute renal failure, possibly multifactorial secondary to obstructive uropathy and prerenal, improving Gastroesophageal reflux disease History of prostate disorder GI prophylaxis DVT prophylaxis Full code Plan: Recommend to continue with current medications and management with multiple medical consultations including general surgery, nephrology, oncology, and infectious disease following. Patient is postop laparoscopic drainage of the presacral abscess with partial colectomy and colostomy. Patient is currently maintained on regular diet and tolerating. Bowel activity noted in the ostomy and also encouraged increased activity as tolerated with PT/OT therapy evaluation. Recommend ECF for continued strength and mobility and patient is agreeable. WBC continues to be elevated although trending down and patient is maintained on Flagyl and Zosyn and will continue with infectious disease following closely. discharge antibiotic recommendations made per ID. Nephrology also following and patient will continue with Penn catheter and trial void and if retaining recommending replacing indwelling Penn catheter with outpatient urology follow-up. recommend incentive spirometer, We will continue to follow along closely with general surgery during hospitalization. Thank you kindly for this consultation. Possible discharge to ECF in 24 hours. The impression and plan of care has been dictated by Johana Banks, nurse practitioner as directed. Dr. Tim MD I have performed a history and examination and MDM of this patient, discussed the same with the dictator, and agree with the dictator's assessment and plan as written ,documented as a scribe. Based on total visit time, I have performed more than 50% of the visit. Any additional findings or plans will be noted. Objective - Vital Signs Vital signs: Vital Signs Temp 98.7 F 08/22/22 13:46 Pulse 70 08/22/22 13:46 Resp 16 08/22/22 13:46 BP 104/70 08/22/22 13:46 Pulse Ox 95 08/22/22 13:46 FiO2 21 08/16/22 07:37 Intake & Output 08/21/22 08/22/22 08/22/22 18:59 06:59 18:59 Intake Total 200 880 Output Total 725 553 Balance -525 327 Intake: IV 200 Piperacillin-Tazobactam 3 200 .375 gm In Sodium Chloride 0.9% 100 ml @ 25 mls/hr IVPB Q8H [facility] Rx#: [id number] Intake, IV Titration 400 Amount Piperacillin-Tazobactam 3 200 .375 gm In Sodium Chloride 0.9% 100 ml @ 25 mls/hr IVPB Q8H [facility] Rx#: [id number] metroNIDAZOLE-NS PMX 500 200 mg In Saline 1 100ml.bag @ 100 mls/hr IVPB Q6H [facility] Rx#:[id number] Oral 480 Output: Drainage 3 Abdomen 3 Urine 425 500 Uretheral (Penn) 500 Stool 300 50 Other: Voiding Method Indwelling Catheter # Voids 2 - Labs CBC & Chem 7: 08/22/22 11:38 08/20/22 08:54 Labs: Abnormal Lab Results - Last 24 Hours (Table) 08/22/22 Range/Units 11:38 WBC 13.5 H (3.8-10.6) k/uL RBC 3.44 L (4.30-5.90) m/uL Hgb 8.0 L (13.0-17.5) gm/dL Hct 28.8 L (39.0-53.0) % MCH 23.3 L (25.0-35.0) pg MCHC 27.8 L (31.0-37.0) g/dL RDW 20.6 H (11.5-15.5) % Plt Count 910 H (150-450) k/uL Neutrophils # (Manual) 10.67 H (1.3-7.7) k/uL Monocytes # (Manual) 1.49 H (0-1.0) k/uL
--- NOTE | 2022-08-22 23:45 | P.PN ---
Subjective Progress Note Date: 08/21/22 Principal diagnosis: Intra-abdominal/pelvic abscess Patient is a 61-year-old male with a past medical history significant for metastatic rectal cancer initial diagnosis 2018 subsequently presented to hospital with abdominal pain seemed abdominal pelvis that shows evidence of possible abscess patient was taken to the OR on 08/15/2022 this patient who is status post exploratory laparotomy with drainage of presacral abscess partial colectomy with colostomy no OR culture were done. On today's evaluation that is 08/21/2022 the patient continues to be afebrile, the patient is breathing comfortably on room air, patient lower abdominal pain has decreased in intensity, the patient denies chest pain or shortness of breath or cough no nausea no vomiting, Objective - Vital Signs Vital signs: Vital Signs Temp 98.6 F 08/21/22 12:35 Pulse 86 08/21/22 12:35 Resp 16 08/21/22 12:35 BP 112/77 08/21/22 12:35 Pulse Ox 95 08/21/22 08:00 FiO2 21 08/16/22 07:37 Intake & Output 08/20/22 08/21/22 08/21/22 18:59 06:59 18:59 Output Total 550 350 Balance -550 -350 Weight 59.9 kg Output: Drainage 50 Abdomen 50 Urine 500 350 Other: Voiding Method Indwelling Catheter Indwelling Catheter - Exam GENERAL DESCRIPTION: Middle-aged male lying in bed in no distress RESPIRATORY SYSTEM: Unlabored breathing , decreased breath sounds at bases HEART: S1 S2 regular rate and rhythm , ABDOMEN: Soft , midline incision is intact no tenderness EXTREMITIES: No edema feet - Labs CBC & Chem 7: 08/22/22 11:38 08/20/22 08:54 Labs: Abnormal Lab Results - Last 24 Hours (Table) 08/21/22 Range/Units 09:03 WBC 15.5 H (3.8-10.6) k/uL RBC 3.46 L (4.30-5.90) m/uL Hgb 7.8 L (13.0-17.5) gm/dL Hct 28.6 L (39.0-53.0) % MCH 22.7 L (25.0-35.0) pg MCHC 27.4 L (31.0-37.0) g/dL RDW 20.2 H (11.5-15.5) % Plt Count 924 H (150-450) k/uL Neutrophils # 12.8 H (1.3-7.7) k/uL Microbiology - Last 24 Hours (Table) 08/14/22 21:15 Blood Culture - Final Blood No Growth after 144 hours Assessment and Plan (1) Intra-abdominal abscess Current Visit: Yes Status: Acute Code(s): K65.1 - PERITONEAL ABSCESS SNOMED Code(s): 13105601 Plan: 1patient with a pelvic abscess in this patient found to have a history of metastatic rectal cancer with a previous surgery he now presents hospital with abdominal pain and CT has been suspicious for an abscess we will need to call for any data gram-negative with a likely pathogen awaiting surgical drainage 2patient is status post laparotomy drainage of the abscess unfortunately no cultures were done, patient did have colectomy and diverting colostomy 3-patient is afebrile and the white count is slowly trending down, blood cultures have been negative, patient currently being treated with Zosyn and monitor his clinical course closely Time with Patient: Less than 30
--- NOTE | 2022-08-22 23:46 | P.PN ---
Subjective Progress Note Date: 08/22/22 Principal diagnosis: Intra-abdominal/pelvic abscess Patient is a 61-year-old male with a past medical history significant for metastatic rectal cancer initial diagnosis 2018 subsequently presented to hospital with abdominal pain seemed abdominal pelvis that shows evidence of possible abscess patient was taken to the OR on 08/15/2022 this patient who is status post exploratory laparotomy with drainage of presacral abscess partial colectomy with colostomy no OR culture were done. On today's evaluation that is 08/22/2022 the patient did have a low grade fever last night of 99, is afebrile since than, the patient is breathing comfortably on room air, patient lower abdominal pain has decreased in intensity, the patient denies chest pain or shortness of breath or cough no nausea no vomiting, Objective - Vital Signs Vital signs: Vital Signs Temp 98.7 F 08/22/22 07:42 Pulse 87 08/22/22 07:42 Resp 16 08/22/22 07:42 BP 118/72 08/22/22 07:42 Pulse Ox 93 L 08/22/22 07:42 FiO2 21 08/16/22 07:37 Intake & Output 08/21/22 08/22/22 08/22/22 18:59 06:59 18:59 Intake Total 200 880 Output Total 725 553 Balance -525 327 Intake: IV 200 Piperacillin-Tazobactam 3 200 .375 gm In Sodium Chloride 0.9% 100 ml @ 25 mls/hr IVPB Q8H [facility] Rx#: [id number] Intake, IV Titration 400 Amount Piperacillin-Tazobactam 3 200 .375 gm In Sodium Chloride 0.9% 100 ml @ 25 mls/hr IVPB Q8H [facility] Rx#: [id number] metroNIDAZOLE-NS PMX 500 200 mg In Saline 1 100ml.bag @ 100 mls/hr IVPB Q6H [facility] Rx#:[id number] Oral 480 Output: Drainage 3 Abdomen 3 Urine 425 500 Uretheral (Penn) 500 Stool 300 50 Other: Voiding Method Indwelling Catheter # Voids 2 - Exam GENERAL DESCRIPTION: Middle-aged male lying in bed in no distress RESPIRATORY SYSTEM: Unlabored breathing , decreased breath sounds at bases HEART: S1 S2 regular rate and rhythm , ABDOMEN: Soft , midline incision is intact no tenderness EXTREMITIES: No edema feet - Labs CBC & Chem 7: 08/22/22 11:38 08/20/22 08:54 Assessment and Plan (1) Intra-abdominal abscess Current Visit: Yes Status: Acute Code(s): K65.1 - PERITONEAL ABSCESS SNOMED Code(s): 88186068 Plan: 1patient with a pelvic abscess in this patient found to have a history of metastatic rectal cancer with a previous surgery he now presents hospital with abdominal pain and CT has been suspicious for an abscess we will need to call for any data gram-negative with a likely pathogen awaiting surgical drainage 2patient is status post laparotomy drainage of the abscess unfortunately no cultures were done, patient did have colectomy and diverting colostomy 3-patient is afebrile and the white count is down to 13.5K, blood cultures have been negative, patient to continue Zosyn and will finish therapy with ceftin and flagyl x 10 days Time with Patient: Less than 30
[2022-08-23] MEDS: oxyCODONE-APAP 10-325MG 1 EACH TAB PO PRN ×2 (02:08→11:55)
[2022-08-23] MEDS: PIPERACILLIN-TAZOBACTAM 3.375 GM in SODIUM CHLORIDE 0.9% 100 ML IVPB SCH ×2 (04:02→12:00)
[2022-08-23] MEDS: metroNIDAZOLE-NS PMX 500 MG in SALINE 1 100ML.BAG IVPB SCH ×2 (04:04→07:43)
[2022-08-23] MEDS: MIRTAZAPINE 15 MG TAB PO SCH (07:41)
[2022-08-23] MEDS: HEPARIN SODIUM,PORCINE/PF 5,000 UNIT/0.5 ML SYRINGE SQ SCH (07:42)
[2022-08-23] MEDS: PANTOPRAZOLE 40 MG/10 ML VIAL IVP SCH (07:42)
[2022-08-23 11:28] LABS: Basophils # (A) 0.07 X 10*3/uL (0.00-0.10); Basophils % (A) 0.5 %; Eosinophils # (A) 0.46 X 10*3/uL (0.04-0.35); Eosinophils % (A) 3.6 %; HCT 28.6 % (39.6-50.0); HGB 8.3 g/dL (13.0-17.0); Immature Grans, Automated 0.9 %; Lymphocytes # (A) 1.09 X 10*3/uL (0.90-5.00); Lymphocytes % (A) 8.5 %; MCH 23.1 pg (27.0-32.0); MCV 79.4 fL (80.0-97.0); Mean Platelet Volume 11.1 fL (9.5-12.2); Monocytes # (A) 1.41 X 10*3/uL (0.20-1.00); NRBC Per 100 WBC 0.2 /100 WBCS (0.0-0.0); Neutrophils # (A) 9.63 X 10*3/uL (1.80-7.70); Neutrophils % (A) 75.5 %; Platelet Count 1190 X 10*3/uL (140-440); RDW 24.2 % (11.5-14.5); WBC 12.77 X 10*3/uL (4.50-10.00)
[2022-08-23 14:39] VITALS: BP 132/87; PULSE 103; RESP 17; TEMP 98.2
--- NOTE | 2022-08-23 14:53 | P.DS ---
Providers Date of admission: 08/14/22 19:16 Expected date of discharge: 08/23/22 Attending physician: Moises Tucker Consults: 08/14/22 19:12 Consult Physician Urgent Consulting Provider: Joss Grier Consult Reason/Comments: Medical management Do you want consulting provider notified?: Yes Consult Physician Urgent Consulting Provider: Francis Andrade Consult Reason/Comments: Colon cancer history Do you want consulting provider notified?: Yes Consult Physician Urgent Consulting Provider: Purvi Anglin Consult Reason/Comments: Acute renal failure Do you want consulting provider notified?: Yes 08/15/22 14:02 Consult Physician Routine Consulting Provider: Elizabeth Soto Consult Reason/Comments: sepsis Do you want consulting provider notified?: Yes 08/15/22 20:13 Consult Physician Stat Consulting Provider: Moises Tucker Consult Reason/Comments: ICU management Do you want consulting provider notified?: Already Contacted 08/16/22 09:14 Consult Physician Routine Consulting Provider: Gautam Garcia Consult Reason/Comments: Critical care management Do you want consulting provider notified?: Already Contacted Primary care physician: Zane Lagos Hospital Course: Discharge diagnosis 1. Presacral abscess status post exploratory laparotomy with drainage of presacral abscess, partial colectomy with colostomy 2. Metastatic rectal cancer with prior resection and resection of liver 3. History of leak at rectal surgical site requiring colostomy and then reversal of colostomy 4. Urinary retention with mild bilateral hydronephrosis 5. Acute kidney injury resolved 6. Thrombocytosis. Aspirin 81 mg daily added 7. Urinary retention Penn catheter placed Hospital course This is 61-year-old male with a known history of metastatic rectal cancer diagnosed in 2018. Patient had resection of the rectal cancer and hepatic resection at [facility]. He had a leak at the resection site while he was in [place] and required a colostomy. He then had the colostomy reversed a couple of years ago. Patient has been on chemotherapy. Chemotherapy has been placed on hold. Patient was found to have a presacral abscess on CT imaging and is status post exploratory laparotomy with drainage of presacral abscess, partial colectomy with colostomy. Patient did require ICU. He was able to be transferred out of the ICU to regular medical floor. He is tolerating advancement of diet. His ostomy is functioning. His pain is controlled. He is afebrile. His white count continues to trend downwards. Patient evaluated by multiple consultants. Patient has been cleared by consultants for discharge. Incision site is clean dry and intact. HOLDEN drain with purulent drainage. Patient will continue oral antibiotics after discharge as recommended per ID service. Patient did have urinary retention and required Penn catheter to be reinserted prior to discharge. Patient will continue with Penn catheter and follow up with urology outpatient. Patient has worked with physical therapy they are recommending rehab at discharge. Patient is to be discharged to [facility] today. Patient still for discharge. Please refer to chart for any further details. Physician Manager Sharepoint note has been reviewed by physician. Signing provider agrees with the documented findings, assessment, and plan of care. Patient Condition at Discharge: Stable Plan - Discharge Summary Discharge Rx Participant: No New Discharge Prescriptions: New cefUROXime axetiL [Ceftin] 500 mg PO BID 10 Days #20 tab Aspirin EC [Ecotrin Low Dose] 81 mg PO DAILY #30 tab metroNIDAZOLE [Flagyl] 500 mg PO TID 10 Days #30 tab oxyCODONE HCL/ACETAMINOPHEN [Percocet 10-325 mg] 1 tab PO Q4HR PRN 3 Days #18 tab PRN Reason: Pain Continue Acetaminophen Tab [Tylenol] 650 mg PO Q6HR PRN tab PRN Reason: Mild Pain Or Fever > 100.5 Mirtazapine 7.5 mg PO DAILY Triad 1 applic TOPICAL BID Discontinued Sennosides [Senokot] 8.6 mg PO HS Loperamide [Imodium] 2 mg PO Q4HR #30 cap Pantoprazole Sodium 20 mg PO BID #60 tab Megestrol Acetate 400 mg PO DAILY HYDROcodone/APAP 10-325MG [[place] 10-325] 1 tab PO Q6H PRN PRN Reason: Pain Discharge Medication List Acetaminophen Tab [Tylenol] 650 mg PO Q6HR PRN tab 08/08/22 [Rx] Mirtazapine 7.5 mg PO DAILY 08/14/22 [History] Triad 1 applic TOPICAL BID 08/14/22 [History] cefUROXime axetiL [Ceftin] 500 mg PO BID 10 Days #20 tab 08/22/22 [Rx] metroNIDAZOLE [Flagyl] 500 mg PO TID 10 Days #30 tab 08/22/22 [Rx] Aspirin EC [Ecotrin Low Dose] 81 mg PO DAILY #30 tab 08/23/22 [Rx] oxyCODONE HCL/ACETAMINOPHEN [Percocet 10-325 mg] 1 tab PO Q4HR PRN 3 Days #18 tab 08/23/22 [Rx] Follow up Appointment(s)/Referral(s): Moises Tucker MD [Medical Doctor] - 1 Week Francis Andrade MD [STAFF PHYSICIAN] - 08/30/22 11:15 am (At the [facility]) Zane Lagos MD [Primary Care Provider] - 1-2 days [facility], [NON-STAFF] - 1 Week [facility] [place], [NON-STAFF] - As Needed Ben Lindsey MD [STAFF PHYSICIAN] - 1 Week Patient Instructions/Handouts: Colostomy Care (GEN) Activity/Diet/Wound Care/Special Instructions: Recommendations for Colosotmy care Instructions for discharge to home after hospital: LAst colosotmy pouchign system change: 08.20.2022 [facility]: Convatec flange moldable # [id number] (3) Convatec pouch with filter #[id number] (3) Ostomy powder No sting prep pads (10) Mr Garrison is to change the entire pouching system every 3-5 days unless otherwise directed by Home care nurse Mr Garrison is to empty the pouching system when it is 1/2 to 1/3 full Home Health please follow up with Mr Garrison to arrange disposable precut pouching system if desirable about 2 weeks after discharge Keep a log of HOLDEN drain output and bring with you to your follow-up appointment Milk/strip drains 2-3 times a day No driving while taking Percocet No lifting over 10 pounds You may shower. No soaking or tub baths for 2 weeks Very light activity until you are reevaluated at your follow up appointment with your surgeon Continue Penn catheter for 1 week. Patient to follow up with urology for urinary retention Discharge Disposition: TRANSFER TO SNF/ECF
--- NOTE | 2022-08-24 09:19 | P.PN ---
Subjective Progress Note Date: 08/23/22 This is a 61-year-old male who was recently admitted with abdominal pain with possible rectal perforation and sepsis, present on admission and is being closely monitored. Patient also was found to have significant renal failure with multiple medical consultations including oncology, infectious disease, general surgery following. Patient is postop drainage of the presacral abscess along with colectomy and end colostomy and is currently in the ICU under close observation. Nephrology following and kidney functions much improved with a creatinine of 1.09 which was 3 yesterday other labs reviewed including a WBC of 25.5 and hemoglobin is stable at 8.3. Patient is afebrile denies chest pain or shortness of breath. Patient reports his abdomen feels much improved although continues with weakness. Recommend PT/OT to evaluate the patient. Patient is currently being started on clear liquids and to advance slowly per surgery recommendations as tolerated. 08/17/2022 Patient is seen and evaluated in follow-up today continues to be in the ICU with multiple medical consultations following. Patient is postop colectomy with colostomy and reports no stool or gas noted as of yet. Patient does have HOLDEN drain of the presacral abscess noted with thick drainage noted. Patient is maintained on clear liquids and to continue per surgery recommendations. Patient is tolerating with no reports of nausea or vomiting although does have some abdominal discomfort. Patient is also maintained on IV antibiotics and recommend continue. WBC remains elevated at 24.4 although is less than yesterday, hemoglobin is 7.9, sodium is 139 with a potassium of 5.0 and current creatinine is improved at 0.82. Carcinoembryonic antigen is elevated at 1333. Other iron studies are low and ferritin is high. Vital signs stable currently and patient is currently on room air at 95% oxygen saturation. Patient is a febrile with no reports of chest pain or shortness of breath noted. 08/20/2022 Patient is seen and evaluated in follow-up this morning being closely monitored by general surgery services as attending. Patient is status post exploratory laparotomy with drainage of the presacral abscess with partial colectomy and colostomy. Patient is having bowel activity noted with stool along with gas in the ostomy and tolerating full liquid diet. Patient is weak and PT/OT therapy has been consulted. Patient encouraged to increase activity as tolerated and continue with pain management per surgery services. Patient is maintained on IV antibiotics and will continue. Discussed ECF for continued PT/OT therapy and patient is agreeable. Case management is following. Patient is afebrile with no reports of chest pain or shortness of breath. Patient is tolerating diet with no reports of nausea or vomiting noted. 08/21/2022 Patient is seen this morning and reports to feeling somewhat better. Still reports fatigue at times. PT/OT following and recommending ECF. Case management is following and working on facilities. Patient is continued on IV abx with ID following and awaiting abx recommendations for discharge. Patient is tolerating diet and continued stool and gas in the ostomy. Encouraged increased activity as tolerated. Patient currently afebrile and WBC is trending down. Patient denies chest pain or shortness of breath. 08/22/2022 Patient is seen and evaluated in follow-up this morning no acute overnight issues. Patient is tolerating diet and maintained on IV antibiotics with in fectious disease following. General surgery as admitting working on discharge planning and patient will be returning to [facility] [place]. Patient with overall weakness recommending physical therapy daily. CBC is trending down and 13.5 today patient is afebrile and hemoglobin remained stable at 8.0. Continued ostomy output noted and patient is maintained on regular diet with no reports of nausea or vomiting noted. Encourage increase activity as tolerated and will follow-up with repeat labs in a.m. Anticipating discharge in 24 hours. 08/23/2022 Patient seen and evaluated this morning currently awaiting to go to ECF. Plan is for discharge today and patient will continue on oral antibiotics with infectious disease following. Patient continues to tolerate diet with no reports of nausea or vomiting noted and is having stool along with gas in the ostomy. Patient continues with significant weakness and agreeable to rehab and will be going to [facility] [place] today. Encouraged oral intake and increased activity as tolerated. Patient prognosis remains extremely guarded at this time. Patient to follow-up with surgery in the outpatient setting as well. WBC is trending down at 12.77 and hemoglobin remained stable at 8.3. Platelets remain elevated and patient will be following up with oncology/hematology outpatient. Patient is afebrile denies chest pain or shortness of breath. Indwelling Penn catheter has been removed today and awaiting to void Review of systems: Constitutional: No reports of fatigue, no reports of fever, or chills Cardiovascular: No reports of chest pain or palpitations Respiratory: No reports of shortness of breath or cough GI: No reports of nausea, no reports of of vomiting, reports of gas and bowel movement the ostomy : No reports of dysuria or retention Neurovascular: reports of generalized weakness All medications have been reviewed PHYSICAL EXAMINATION: GENERAL: The patient is alert and oriented x4, Well developed, well nourished. HEENT: Pupils are round and equally reacting to light. EOMI. no scleral icterus. No conjunctival pallor. Normocephalic, atraumatic. No pharyngeal erythema. No thyromegaly. CARDIOVASCULAR: S1 and S2 muffled PULMONARY: diminished breath sounds bilaterally with no wheezing or rhonchi n oted. ABDOMEN: soft. non tender on exam. non-distended, normoactive bowel sounds. No palpable organomegaly. Gas and stool noted in the ostomy MUSCULOSKELETAL: No joint swelling or deformity. EXTREMITIES: No cyanosis, clubbing, or pedal edema. NEUROLOGICAL: Gross neurological examination did not reveal any focal deficits. Diffuse weakness SKIN: No rashes. Assessment: Presacral abscess with perforated rectum Status post exploratory laparotomy with drainage of the presacral abscess along with partial colectomy with colostomy Metastatic rectal cancer Sepsis, present on admission secondary to presacral abscess Urinary tract infection, present on admission Increased WBC acute renal failure, possibly multifactorial secondary to obstructive uropathy and prerenal, improving Gastroesophageal reflux disease History of prostate disorder GI prophylaxis DVT prophylaxis Full code Plan: Recommend to continue with current medications and management with multiple medical consultations including general surgery, nephrology, oncology, and infectious disease following. Patient is postop laparoscopic drainage of the presacral abscess with partial colectomy and colostomy. Patient is currently maintained on regular diet and tolerating. Bowel activity noted in the ostomy and also encouraged increased activity as tolerated . Recommend ECF for continued strength and mobility and patient is agreeable. WBC continues to be elevated although trending down and patient is maintained on Flagyl and Zosyn and will continue with infectious disease following closely. discharge antibiotic recommendations made per ID. Nephrology also following and patient to have Penn catheter removed and trial void and if retaining recommending replacing indwelling Penn catheter with outpatient urology follow-up. recommend incentive spirometer, We will continue to follow along closely with general surgery during hospitalization. Thank you kindly for this consultation. Patient is being discharged to [facility] [place] today. Guarded prognosis. The impression and plan of care has been dictated by Johana Banks, nurse practitioner as directed. Dr. Tim MD I have performed a history and examination and MDM of this patient, discussed the same with the dictator, and agree with the dictator's assessment and plan as written ,documented as a scribe. Based on total visit time, I have performed more than 50% of the visit. Any additional findings or plans will be noted. Objective - Vital Signs Vital signs: Vital Signs Temp 98.2 F 08/23/22 14:00 Pulse 103 H 08/23/22 14:00 Resp 17 08/23/22 14:00 BP 132/87 08/23/22 14:00 Pulse Ox 98 08/23/22 14:00 FiO2 21 08/16/22 07:37 Intake & Output 08/23/22 08/24/22 08/24/22 18:59 06:59 18:59 Intake Total 120 Balance 120 Weight 59.9 kg Intake: Oral 120 - Labs CBC & Chem 7: 08/23/22 08:04 08/20/22 08:54 Labs: Abnormal Lab Results - Last 24 Hours (Table) 08/23/22 Range/Units 08:04 WBC 12.77 H (4.50-10.00) X 10*3/uL RBC 3.60 L (4.40-5.60) X 10*6/uL Hgb 8.3 L (13.0-17.0) g/dL Hct 28.6 L (39.6-50.0) % MCV 79.4 L (80.0-97.0) fL MCH 23.1 L (27.0-32.0) pg MCHC 29.0 L (32.0-37.0) g/dL RDW 24.2 H (11.5-14.5) % Plt Count 1190 H* (140-440) X 10*3/uL Absolute Nucleated RBC 0.03 H (0.00-0.00) X 10*3/uL Immature Gran # 0.11 H (0.00-0.04) X 10*3/uL Neutrophils # 9.63 H (1.80-7.70) X 10*3/uL Monocytes # 1.41 H (0.20-1.00) X 10*3/uL Eosinophils # 0.46 H (0.04-0.35) X 10*3/uL NRBC/100 WBC Diff 0.2 H (0.0-0.0) /100 WBCS
== END 2022-08-23 16:06 | DRG 853 ==
LOC: EC 16:30 → 5NMEDONC 19:16 → 2SICU 08-15 19:59 → 4SSUR 08-18 18:30
PROVIDERS: ADMIT Surgery; ATTEND Surgery
PROC: 0W9G0ZZ Drainage of Peritoneal Cavity, Open Approach (ICD-10-PCS; 2022-08-15)
PROC: 0DBM0ZZ Excision of Descending Colon, Open Approach (ICD-10-PCS; 2022-08-15)
PROC: 0D1M0Z4 Bypass Descending Colon to Cutaneous, Open Approach (ICD-10-PCS; principal; 2022-08-15 10:10)
DX: A41.9 Sepsis, unspecified organism (principal); K63.1 Perforation of intestine (nontraumatic); K68.19 Other retroperitoneal abscess; N17.9 Acute kidney failure, unspecified; E87.20 Acidosis, unspecified; N13.39 Other hydronephrosis; M46.28 Osteomyelitis of vertebra, sacral and sacrococcygeal region; C78.7 Secondary malignant neoplasm of liver and intrahepatic bile duct; D63.0 Anemia in neoplastic disease; R15.9 Full incontinence of feces; N32.89 Other specified disorders of bladder; K21.9 Gastro-esophageal reflux disease without esophagitis; D75.839 Thrombocytosis, unspecified; R33.9 Retention of urine, unspecified; R97.0 Elevated carcinoembryonic antigen [CEA]; Z28.310 Unvaccinated for COVID-19; Z85.048 Personal history of other malignant neoplasm of rectum, rectosigmoid junction, and anus; Z88.2 Allergy status to sulfonamides; Z92.21 Personal history of antineoplastic chemotherapy; Z95.3 Presence of xenogenic heart valve; Z90.49 Acquired absence of other specified parts of digestive tract; Z86.19 Personal history of other infectious and parasitic diseases; Z85.46 Personal history of malignant neoplasm of prostate
CPT/HCPCS: 36415; 71045; 74176; 80048; 80053; 81001; 82150; 82378; 82607; 82728; 82746; 83540; 83550; 83605; 83690; 83735; 85025; 85027; 85610; 86850; 86900; 86901; 87040; 87086; 87324; 88307; 96365; 96375; 99285

== ENCOUNTER 2022-09-21 14:25 | Inpatient (IN) | payer MEDICARE, OTHER ==
[2022-09-21] MEDS ORDERED: SODIUM CHLORIDE 0.9% 1,000 ML IV STA (15:44)
--- NOTE | 2022-09-21 16:19 | ED ---
Weakness HPI - General Chief complaint: Weakness Stated complaint: weakness Time Seen by Provider: 09/21/22 15:15 Source: patient Mode of arrival: ambulatory Limitations: no limitations - History of Present Illness Initial comments: 62-year-old male with past medical history of metastatic colon cancer who presents to the emergency department from [facility]. Patient was discharged from our hospital 1 month ago after he had colon resection, colostomy and placement of a HOLDEN drain for a presacral abscess. Patient reports that since he has been at [facility] has had a poor appetite. Had significant weight loss. States that food does not taste good. He has poor oral intake of solid foods and water. Patient has had mild generalized abdominal pain but denies that it is any worse than normal. No chest pain or shortness of breath. No cough. No sick c ontacts. Symptoms have progressively gotten worse. Patient not able to ambulate. Admits to a fever this morning. States that when he eats he will have adequate output through his colostomy. No other alleviating, precipitating or modifying factors - Related Data Home Medications Medication Instructions Recorded Confirmed Mirtazapine 7.5 mg PO DAILY 08/14/22 09/21/22 Triad 1 applic TOPICAL BID 08/14/22 09/21/22 Alfuzosin HCl [Alfuzosin HCl ER] 10 mg PO HS 09/21/22 09/21/22 Lactulose 20 gm PO BID 09/21/22 09/21/22 Levofloxacin [Levaquin] 500 mg PO DAILY 09/21/22 09/21/22 Sennosides [Senokot] 17.2 mg PO DAILY 09/21/22 09/21/22 Previous Rx's Medication Instructions Recorded Acetaminophen Tab [Tylenol] 650 mg PO Q6HR PRN tab 08/08/22 oxyCODONE HCL/ACETAMINOPHEN 1 tab PO Q4HR PRN 3 Days #18 tab 08/23/22 [Percocet 10-325 mg] Allergies Allergy/AdvReac Type Severity Reaction Status Date / Time Sulfa (Sulfonamide Allergy Anaphylaxis Verified 09/21/22 15:15 Antibiotics) Review of Systems ROS Statement: Those systems with pertinent positive or pertinent negative responses have been documented in the HPI. ROS Other: All systems not noted in ROS Statement are negative. Past Medical History Past Medical History: Cancer, GERD/Reflux, Prostate Disorder Additional Past Medical History / Comment(s): colon cancer-LAST CHEMO ON 07/14/22. GI BLEED MARCH 2020 possible lung Mets History of Any Multi-Drug Resistant Organisms: C-DIFF Date of last positivie culture/infection: 03/21/2022 MDRO Source:: stool Past Surgical History: Bowel Resection, Cardiac Valve Replacement Additional Past Surgical History / Comment(s): liver/rectal colon cancer,. COLONOSCOPY. colostomy reversal January 2022, removed section of liver in 2018 Past Anesthesia/Blood Transfusion Reactions: No Reported Reaction Past Psychological History: No Psychological Hx Reported Smoking Status: Never smoker Past Alcohol Use History: None Reported Past Drug Use History: None Reported - Past Family History Father Family Medical History: Cancer Mother Family Medical History: Osteoarthritis (OA) General Exam Limitations: no limitations General appearance: alert, in no apparent distress, cachectic Head exam: Present: atraumatic, normocephalic, normal inspection Eye exam: Present: normal appearance, PERRL, EOMI. Absent: scleral icterus, conjunctival injection, periorbital swelling ENT exam: Present: normal exam, mucous membranes dry Neck exam: Present: normal inspection. Absent: tenderness, meningismus, lymphadenopathy Respiratory exam: Present: normal lung sounds bilaterally. Absent: respiratory distress, wheezes, rales, rhonchi, stridor Cardiovascular Exam: Present: regular rate, normal rhythm, normal heart sounds. Absent: systolic murmur, diastolic murmur, rubs, gallop, clicks GI/Abdominal exam: Present: soft, tenderness (generalized), normal bowel sounds. Absent: distended, guarding, rebound, rigid Extremities exam: Present: normal inspection, full ROM, normal capillary refill. Absent: tenderness, pedal edema, joint swelling, calf tenderness Back exam: Present: normal inspection Neurological exam: Present: alert, oriented X3, CN II-XII intact Psychiatric exam: Present: normal affect, normal mood Skin exam: Present: warm, dry, intact, normal color. Absent: rash Course Vital Signs 09/21/22 09/21/22 15:13 19:29 Temperature 98.1 F Pulse Rate 98 124 H Respiratory 20 18 Rate Blood Pressure 105/74 O2 Sat by Pulse 99 95 Oximetry EKG Findings - EKG Comments: EKG Findings:: EKG was interpreted by myself. It demonstrates a sinus rhythm with a rate of 90. WA interval 190. QRS 140. QTC of 445. There is a right bundle branch block with a left anterior fascicular block. No acute ST segment elevations or depressions Medical Decision Making - Medical Decision Making Upon arrival patient was placed into room 6. A thorough history and physical exam is performed. IV is established the patient is given a liter bolus of normal saline. Laboratory studies are conducted and reviewed. Patient does have mild elevation in his white count of 15.5. Sodium low at 131. Chest x-ray performed which demonstrates no acute pulmonary process. Postsurgical changes from cardiac valve port placement. CT of abdomen and pelvis is obtained because of leukocytosis and abdominal pain which demonstrates numerous hypodense liver lesions. Significantly increased compared to old exam. I did discuss the findings with the patient. Patient feels too weak to be transported back to his facility. I will admit the patient for IV hydration and oncology consultation. Spoke with Dr. Cartagena for admission. - Lab Data Result diagrams: 09/24/22 06:42 09/24/22 06:42 Lab Results 09/21/22 09/21/22 09/21/22 Range/Units 16:21 16:21 16:21 WBC 15.5 H (3.8-10.6) k/uL RBC 3.96 L (4.30-5.90) m/uL Hgb 9.8 L D (13.0-17.5) gm/dL Hct 33.6 L (39.0-53.0) % MCV 84.9 (80.0-100.0) fL MCH 24.8 L (25.0-35.0) pg MCHC 29.2 L (31.0-37.0) g/dL RDW 18.4 H (11.5-15.5) % Plt Count 659 H (150-450) k/uL MPV 8.8 Neutrophils % (Manual) 77 % Lymphocytes % (Manual) 10 % Monocytes % (Manual) 13 % Neutrophils # (Manual) 11.94 H (1.3-7.7) k/uL Lymphocytes # (Manual) 1.55 (1.0-4.8) k/uL Monocytes # (Manual) 2.02 H (0-1.0) k/uL Nucleated RBCs 0 (0-0) /100 WBC Manual Slide Review Performed Hypochromasia Marked Hypochromasia (manual) Present Anisocytosis Slight Anisocytosis (manual) Present Target Cells Present PT 13.6 H (9.0-12.0) sec INR 1.3 H (<1.2) APTT 29.3 (22.0-30.0) sec Sodium 131 L (137-145) mmol/L Potassium 4.1 (3.5-5.1) mmol/L Chloride 101 (98-107) mmol/L Carbon Dioxide 25 (22-30) mmol/L Anion Gap 5 mmol/L BUN 14 (9-20) mg/dL Creatinine 0.66 (0.66-1.25) mg/dL Est GFR (CKD-EPI)AfAm >90 (>60 ml/min/1.73 sqM) Est GFR (CKD-EPI)NonAf >90 (>60 ml/min/1.73 sqM) Glucose 105 H (74-99) mg/dL Plasma Lactic Acid Han (0.7-2.0) mmol/L Calcium 8.2 L (8.4-10.2) mg/dL Magnesium 2.0 (1.6-2.3) mg/dL Total Bilirubin 0.6 (0.2-1.3) mg/dL AST 88 H (17-59) U/L ALT 29 (4-49) U/L Alkaline Phosphatase 649 H (38-126) U/L Troponin I (0.000-0.034) ng/mL NT-Pro-B Natriuret Pep pg/mL Total Protein 6.1 L (6.3-8.2) g/dL Albumin 2.8 L (3.5-5.0) g/dL 09/21/22 09/21/22 09/21/22 Range/Units 16:21 16:21 16:21 WBC (3.8-10.6) k/uL RBC (4.30-5.90) m/uL Hgb (13.0-17.5) gm/dL Hct (39.0-53.0) % MCV (80.0-100.0) fL MCH (25.0-35.0) pg MCHC (31.0-37.0) g/dL RDW (11.5-15.5) % Plt Count (150-450) k/uL MPV Neutrophils % (Manual) % Lymphocytes % (Manual) % Monocytes % (Manual) % Neutrophils # (Manual) (1.3-7.7) k/uL Lymphocytes # (Manual) (1.0-4.8) k/uL Monocytes # (Manual) (0-1.0) k/uL Nucleated RBCs (0-0) /100 WBC Manual Slide Review Hypochromasia Hypochromasia (manual) Anisocytosis Anisocytosis (manual) Target Cells PT (9.0-12.0) sec INR (<1.2) APTT (22.0-30.0) sec Sodium (137-145) mmol/L Potassium (3.5-5.1) mmol/L Chloride (98-107) mmol/L Carbon Dioxide (22-30) mmol/L Anion Gap mmol/L BUN (9-20) mg/dL Creatinine (0.66-1.25) mg/dL Est GFR (CKD-EPI)AfAm (>60 ml/min/1.73 sqM) Est GFR (CKD-EPI)NonAf (>60 ml/min/1.73 sqM) Glucose (74-99) mg/dL Plasma Lactic Acid Han 1.7 (0.7-2.0) mmol/L Calcium (8.4-10.2) mg/dL Magnesium (1.6-2.3) mg/dL Total Bilirubin (0.2-1.3) mg/dL AST (17-59) U/L ALT (4-49) U/L Alkaline Phosphatase (38-126) U/L Troponin I <0.012 (0.000-0.034) ng/mL NT-Pro-B Natriuret Pep 497 pg/mL Total Protein (6.3-8.2) g/dL Albumin (3.5-5.0) g/dL Disposition Clinical Impression: Malnutrition, Dehydration, Rectal cancer metastasized to liver, Hyponatremia, Leukocytosis Disposition: ADMITTED IP TO THIS [facility] Condition: Serious Is patient prescribed a controlled substance at d/c from ED?: No Time of Disposition: 18:28 Decision to Admit Reason: Admit from EC Decision Date: 09/21/22 Decision Time: 18:28
--- NOTE | 2022-09-21 16:24 | XR ---
EXAMINATION TYPE: XR chest 2V DATE OF EXAM: 09/21/2022 COMPARISON: 08/14/2022 INDICATION: Increased weakness, history of colon cancer TECHNIQUE: Frontal and lateral views of the chest are obtained. FINDINGS: The heart size is normal. The pulmonary vasculature is normal. The lungs are clear. Sternotomy wires are in the midline. A port is present on the right with the tip in the superior vena cava region. Epicardial leads are present. Cardiac valve is evident. IMPRESSION: 1. No acute pulmonary process. 2. Postsurgical changes from cardiac valve replacement. Epicardial leads are present.
[2022-09-21 16:37] LABS: Anisocytosis Slight; HCT 33.6 % (39.0-53.0); Hypochromasia Marked; MCH 24.8 pg (25.0-35.0); MCHC 29.2 g/dL (31.0-37.0); MCV 84.9 fL (80.0-100.0); Mean Platelet Volume 8.8; Platelet Count 659 k/uL (150-450); RBC 3.96 m/uL (4.30-5.90); RDW 18.4 % (11.5-15.5); WBC 15.5 k/uL (3.8-10.6)
[2022-09-21 16:47] LABS: HGB 9.8 gm/dL (13.0-17.5)
[2022-09-21 16:49] LABS: ALT 29 U/L (4-49); AST 88 U/L (17-59); African American GFR (CKD) >90 (>60 ml/min/1.73 sqM); Albumin 2.8 g/dL (3.5-5.0); Alkaline Phosphatase 649 U/L (38-126); Anion Gap 5 mmol/L; Blood Urea Nitrogen 14 mg/dL (9-20); Calcium 8.2 mg/dL (8.4-10.2); Carbon Dioxide 25 mmol/L (22-30); Chloride 101 mmol/L (98-107); Glucose 105 mg/dL (74-99); INR 1.3 (<1.2); Non-African American GFR(CKD) >90 (>60 ml/min/1.73 sqM); Partial Thromboplastin Time 29.3 sec (22.0-30.0); Potassium 4.1 mmol/L (3.5-5.1); Prothrombin Time 13.6 sec (9.0-12.0); Sodium 131 mmol/L (137-145); Total Bilirubin 0.6 mg/dL (0.2-1.3); Total Protein 6.1 g/dL (6.3-8.2)
[2022-09-21 17:28] LABS: Anisocytosis (M) Present; Hypochromasia (M) Present; Lymphocytes # (M) 1.55 k/uL (1.0-4.8); Monocytes # (M) 2.02 k/uL (0-1.0); Neutrophils # (M) 11.94 k/uL (1.3-7.7); Neutrophils % (M) 77 %; Nucleated Red Blood Cells 0 /100 WBC (0-0); Target Cells Present; Total Cells Counted 100
--- NOTE | 2022-09-21 18:10 | CT ---
EXAMINATION TYPE: CT abdomen pelvis w con DATE OF EXAM: 09/21/2022 COMPARISON: 08/14/2022 HISTORY: Abdominal pain and weakness. History of colon cancer with mets. CT DLP: 814.2 mGycm Automated exposure control for dose reduction was used. CONTRAST: Performed with IV Contrast, patient injected with 100ml mL of Isovue 300. Images obtained from the diaphragm to the floor the pelvis with the IV contrast. There is mild right pleural effusion. There is atelectasis at the right lung base. Heart size is norm al. No pericardial effusion. There are numerous hypodense masses throughout the liver with variable size. The largest measures 4 c m. . 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 No pancreatic mass. There are neil gical clips at the stomach. There is some mild gastric wall thickening. There is no adrenal mass. Kidneys have normal size. There is normal contrast opacification of the kid neys. There is some fullness of the left renal pelvis and left ureter. Delayed images show normal cleopatra al excretion. No retroperitoneal adenopathy. There are small calculi in the lower pole of the left ki dney. There is drainage catheter in the pelvis. There is Penn catheter in the urinary bladder. There is small amount of abdominal ascites fluid. There are clips from surgery at the right colon. The lumbar vertebrae have normal alignment. There is narrowing at L3-4 and L5-S1 disc spaces with vac uum disc and spur formation. No compression fracture. The bony pelvis is intact. The hip joints are i ntact. IMPRESSION: Numerous hypodense liver lesions. These are significantly increased compared to old exam and consiste nt with progression of metastatic disease. There is a right pleural effusion which is mostly new compared to the old exam. There is mild abdominal ascites. This appears new compared to the old exam. There is peritoneal eva ter noted in the pelvis which is a change compared to the old exam. There is improvement in the hydro nephrosis of the kidneys compared to the old exam.
[2022-09-21] MEDS ORDERED: NALOXONE 0.4 MG/ML 1 ML VIAL IV PRN (18:28)
[2022-09-21] MEDS: SODIUM CHLORIDE 0.9% 1,000 ML IV SCH (21:16)
[2022-09-21] MEDS ORDERED: oxyCODONE-APAP 10-325MG 1 EACH TAB PO PRN (23:56)
[2022-09-22] MEDS: NON FORMULARY DRUG (Alfuzosin Hcl [Alfuzosin Hcl Er] 10 MG Tab.Er.24h) PO SCH ×2 (00:32→21:18)
[2022-09-22 03:48] LABS: Appearance,Urine Cloudy (Clear); Bacteria,Urine Moderate /hpf; Bilirubin,Urine Negative (Negative); Blood,Urine Large (Negative); Color,Urine Yellow; Glucose,Urine (UA) Negative (Negative); Ketones,Urine Negative (Negative); Leukocyte Esterase,Urine Large (Negative); Mucus,Urine Many /hpf; Nitrite,Urine Positive (Negative); Protein,Urine 1+ (Negative); RBC,Urine 173 /hpf (0-5); Specific Gravity,Urine 1.036 (1.001-1.035); Squamous Epithelial Cell,Urine 1 /hpf (0-4); Urobilinogen,Urine <2.0 mg/dL (<2.0); WBC,Urine >182 /hpf (0-5)
--- NOTE | 2022-09-22 03:49 | P.HPIM ---
History of Present Illness H&P Date: 09/21/22 Chief Complaint: failure to thrive 62 year old male with metastatic colon cancer, patient is a resident at [facility] , comes in today for evaluation of failure to thrive with poor appetite , generalized weakness, inability to ambulate, decrease PO intake, today he spiked a fever, and for that he was sent in here for evaluation . he denies any GI bleeding, denies any trouble breathing, coughing, or URI symptoms, patient has a chronic dias cath, and a right delroy drain from a recent abscess, he was also hospitalized here a month ago where he underwent bowel resection. patient reports chronic abd pain / discomfort unchanged . upon evaluation in the ED, CXR showed no acute pathology blood work showed elevated WBC , elevated liver enzymes, hyponatremia , anemia abd CT showed liver mets, right pleural effusion , abd ascites , Review of Systems Pertinent positives as noted in HPI. All other systems were reviewed and are negative Past Medical History Past Medical History: Cancer, GERD/Reflux, Prostate Disorder Additional Past Medical History / Comment(s): colon cancer-LAST CHEMO ON 07/14/22. GI BLEED MARCH 2020 possible lung Mets History of Any Multi-Drug Resistant Organisms: C-DIFF Date of last positivie culture/infection: 03/21/2022 MDRO Source:: stool Past Surgical History: Bowel Resection, Cardiac Valve Replacement Additional Past Surgical History / Comment(s): liver/rectal colon cancer,. COLONOSCOPY. colostomy reversal January 2022, removed section of liver in 2018 Past Anesthesia/Blood Transfusion Reactions: No Reported Reaction Past Psychological History: No Psychological Hx Reported Smoking Status: Never smoker Past Alcohol Use History: None Reported Past Drug Use History: None Reported - Past Family History Father Family Medical History: Cancer Mother Family Medical History: Osteoarthritis (OA) Medications and Allergies Home Medications Medication Instructions Recorded Confirmed Type Acetaminophen Tab [Tylenol] 650 mg PO Q6HR PRN tab 08/08/22 09/21/22 Rx Mirtazapine 7.5 mg PO DAILY 08/14/22 09/21/22 History Triad 1 applic TOPICAL BID 08/14/22 09/21/22 History oxyCODONE HCL/ACETAMINOPHEN 1 tab PO Q4HR PRN 3 Days #18 tab 08/23/22 09/21/22 Rx [Percocet 10-325 mg] Alfuzosin HCl [Alfuzosin HCl ER] 10 mg PO HS 09/21/22 09/21/22 History Lactulose 20 gm PO BID 09/21/22 09/21/22 History Levofloxacin [Levaquin] 500 mg PO DAILY 09/21/22 09/21/22 History Sennosides [Senokot] 17.2 mg PO DAILY 09/21/22 09/21/22 History Allergies Allergy/AdvReac Type Severity Reaction Status Date / Time Sulfa (Sulfonamide Allergy Anaphylaxis Verified 09/21/22 15:15 Antibiotics) Physical Exam Vitals: Vital Signs Temp Pulse Resp BP Pulse Ox 09/21/22 19:29 124 H 18 95 09/21/22 15:13 98.1 F 98 20 105/74 99 Intake and Output 09/21/22 09/21/22 09/21/22 06:59 14:59 22:59 Other: Weight 56.699 kg Constitutional: No acute distress, conversant, pleasant Eyes: Anicteric sclerae, moist conjunctiva, Pupils equal round reactive to light ENMT: NC/AT Oropharynx clear, no erythema, or exudates Neck: Supple, no masses, or JVD No carotid bruits No thyromegaly Lungs: Clear to auscultation Clear to percussion Normal respiratory effort, no accessory muscle use Cardiovascular: Heart regular in rate and rhythm, No murmurs, gallops, or rubs No peripheral edema Abdominal: Soft, colostomy bag in place LLQ, functional with brownish stool , no bleeding , dias cath in place, delroy drain in place RLQ Nontender, no guarding, rebound or rigidity Abdomen moving with respiration Normoactive bowel sounds No hepatomegaly, No splenomegaly No palpable mass No abdominal wall hernia noted Skin: Normal temperature, tone, texture, turgor No induration No subcutaneous nodules No rash, lesions No ulcers Extremities: No digital cyanosis No clubbing Pedal pulses intact and symmetrical Radial pulses intact and symmetrical No calf tenderness Psychiatric: Alert and oriented to person, place and time Appropriate affect fair judgement Neuro Muscles Strength 4/5 in all 4 extremities Sensation to light touch grossly present throughout Cranial nerves II-XII grossly intact Lymphatics: no palpable cervical or supraclavicular lymph nodes Results CBC & Chem 7: 09/21/22 16:21 09/21/22 16:21 Labs: Abnormal Lab Results - Last 24 Hours (Table) 11/11/22 11/11/22 11/11/22 Range/Units 16:21 16:21 16:21 WBC 15.5 H (3.8-10.6) k/uL RBC 3.96 L (4.30-5.90) m/uL Hgb 9.8 L D (13.0-17.5) gm/dL Hct 33.6 L (39.0-53.0) % MCH 24.8 L (25.0-35.0) pg MCHC 29.2 L (31.0-37.0) g/dL RDW 18.4 H (11.5-15.5) % Plt Count 659 H (150-450) k/uL Neutrophils # (Manual) 11.94 H (1.3-7.7) k/uL Monocytes # (Manual) 2.02 H (0-1.0) k/uL PT 13.6 H (9.0-12.0) sec INR 1.3 H (<1.2) Sodium 131 L (137-145) mmol/L Glucose 105 H (74-99) mg/dL Calcium 8.2 L (8.4-10.2) mg/dL AST 88 H (17-59) U/L Alkaline Phosphatase 649 H (38-126) U/L Total Protein 6.1 L (6.3-8.2) g/dL Albumin 2.8 L (3.5-5.0) g/dL Assessment and Plan Assessment: generalized debility and deconditioning fever and leukocytosis , no identifiable source of infection hyponatremia chronic anemia metastatic colon cancer supportive care IVF hydration monitor electrolytes encourage PO intake replace dias cath (present upon admission) then obtain urine sample from new ca th CXR no acute pathology oncology consult resume home meds DVT PPX heparin sc tid full code
[2022-09-22] MEDS ORDERED: FUROSEMIDE 10 MG/ML 4 ML VIAL ONE (04:34)
[2022-09-22] MEDS: SODIUM CHLORIDE 0.9% 1,000 ML IV SCH ×3 (06:12→21:20)
[2022-09-22] MEDS ORDERED: HEPARIN SODIUM,PORCINE/PF 5,000 UNIT/0.5 ML SYRINGE SQ SCH (08:00)
[2022-09-22] MEDS: LACTULOSE 20 GM/30 ML CUP PO SCH ×3 (08:36→21:19)
[2022-09-22] MEDS: SENNOSIDES 8.6 MG TAB PO SCH ×2 (08:37→08:39)
[2022-09-22] MEDS: MIRTAZAPINE 15 MG TAB PO SCH (08:37)
[2022-09-22] MEDS ORDERED: LEVOFLOXACIN 500 MG TAB PO SCH (09:00)
[2022-09-22 11:26] LABS: Basophils # (A) 0.05 X 10*3/uL (0.00-0.10); Basophils % (A) 0.3 %; Eosinophils # (A) 0.07 X 10*3/uL (0.04-0.35); Eosinophils % (A) 0.4 %; HCT 30.1 % (39.6-50.0); HGB 8.8 g/dL (13.0-17.0); Immature Grans, Automated 0.5 %; Lymphocytes # (A) 1.29 X 10*3/uL (0.90-5.00); Lymphocytes % (A) 7.4 %; MCHC 29.2 g/dL (32.0-37.0); Mean Platelet Volume 10.2 fL (9.5-12.2); Monocytes # (A) 2.08 X 10*3/uL (0.20-1.00); Monocytes % (A) 11.9 %; NRBC Per 100 WBC 0 /100 WBCS (0.0-0.0); Neutrophils # (A) 13.98 X 10*3/uL (1.80-7.70); Neutrophils % (A) 79.5 %; Platelet Count 683 X 10*3/uL (140-440); RBC 3.67 X 10*6/uL (4.40-5.60); RDW 21.1 % (11.5-14.5); WBC 17.55 X 10*3/uL (4.50-10.00)
--- NOTE | 2022-09-22 11:42 | P.PN ---
Subjective Progress Note Date: 09/22/22 Principal diagnosis: weakness Hospital Course: 62-year-old male with history of metastatic colon cancer presenting from [facility] for failure to thrive, poor appetite, generalized weakness, inability to ambulate. Patient has a Penn catheter in place after his recent bowel surgery. He also has a right HOLDEN drain in place for recent abscess. Per notes, He had f ever at the facility. He denies any subjective fevers, chills, shortness of breath, chest pain, cough, abdominal pain. On admission, he had leukocytosis. Vital signs were otherwise unremarkable. Chest x-ray showed no acute process. Abdomen CT showed liver mets increased from prior, new right pleural effusion, abdominal ascites. Subjective: Patient seen and examined at bedside. No acute events overnight. He denies any significant chest pain, shortness of breath, abdominal pain. Denies any diarrhea, constipation, nausea, vomiting. Overall, he claims that his appetite is reduced and he feels weak. He continues to have a Penn catheter, was replaced last night. Pertinent positives and negatives as discussed above, a complete review of systems was performed and all other systems are negative. Vitals Signs Reviewed. General: nontoxic, no distress, appears at stated age, cachectic Derm: warm, dry Head: atraumatic, normocephalic, symmetric Eyes: EOMI, no lid lag, anicteric sclera Mouth: no lip lesion, mucus membranes moist Cardiovascular: S1S2 reg, no murmur Lungs: CTA bilateral, no rhonchi, no rales , no accessory muscle use Abdominal: soft, nontender to palpation, no guarding, left ostomy, right HOLDEN drain Ext: no gross muscle atrophy, no edema, no contractures Neuro: CN II-XI grossly intact, no focal neuro deficits Psych: Alert, oriented, appropriate affect Assessment and Plan: SIRS Possible UTI Penn catheter for chronic urinary retention -replaced this admission Leukocytosis History of pelvic abscess, status post HOLDEN drain Hypochloremic hyponatremia explained generalized weakness, debility Deconditioned Metastatic colon cancer status post resection -IV fluids -IV ceftriaxone and IV Flagyl -Urine and blood cultures pending -Oncology consult -PT/OT -Medications reviewed and reconciled DVT ppx: Lovenox Code status: Full code Anticipated discharge place: [facility] Anticipated discharge time: 2+ days Objective - Vital Signs Vital signs: Vital Signs Temp 98.9 F 09/22/22 11:10 Pulse 104 H 09/22/22 11:10 Resp 18 09/22/22 11:10 BP 113/76 09/22/22 11:10 Pulse Ox 96 09/22/22 11:10 FiO2 Intake & Output 09/21/22 09/22/22 09/22/22 18:59 06:59 18:59 Output Total 350 Balance -350 Weight 56.699 kg 56.699 kg Output: Urine 350 Other: Voiding Method Indwelling Catheter Indwelling Catheter - Labs CBC & Chem 7: 09/22/22 07:30 09/21/22 16:21 Labs: Abnormal Lab Results - Last 24 Hours (Table) 09/21/22 09/21/22 09/21/22 Range/Units 16:21 16:21 16:21 WBC 15.5 H (3.8-10.6) k/uL RBC 3.96 L (4.30-5.90) m/uL Hgb 9.8 L D (13.0-17.5) gm/dL Hct 33.6 L (39.0-53.0) % MCH 24.8 L (25.0-35.0) pg MCHC 29.2 L (31.0-37.0) g/dL RDW 18.4 H (11.5-15.5) % Plt Count 659 H (150-450) k/uL Immature Gran # (0.00-0.04) X 10*3/uL Neutrophils # (1.80-7.70) X 10*3/uL Neutrophils # (Manual) 11.94 H (1.3-7.7) k/uL Monocytes # (0.20-1.00) X 10*3/uL Monocytes # (Manual) 2.02 H (0-1.0) k/uL PT 13.6 H (9.0-12.0) sec INR 1.3 H (<1.2) Sodium 131 L (137-145) mmol/L Glucose 105 H (74-99) mg/dL Calcium 8.2 L (8.4-10.2) mg/dL AST 88 H (17-59) U/L Alkaline Phosphatase 649 H (38-126) U/L Total Protein 6.1 L (6.3-8.2) g/dL Albumin 2.8 L (3.5-5.0) g/dL Ur Specific [place] (1.001-1.035) Urine Protein (Negative) Urine Blood (Negative) Ur Leukocyte Esterase (Negative) Urine RBC (0-5) /hpf Urine WBC (0-5) /hpf Urine Bacteria (None) /hpf Urine Mucus (None) /hpf 09/22/22 09/22/22 Range/Units 03:17 07:30 WBC 17.55 H (3.8-10.6) k/uL RBC 3.67 L (4.30-5.90) m/uL Hgb 8.8 L (13.0-17.5) gm/dL Hct 30.1 L (39.0-53.0) % MCH 24.0 L (25.0-35.0) pg MCHC 29.2 L (31.0-37.0) g/dL RDW 21.1 H (11.5-15.5) % Plt Count 683 H (150-450) k/uL Immature Gran # 0.08 H (0.00-0.04) X 10*3/uL Neutrophils # 13.98 H (1.80-7.70) X 10*3/uL Neutrophils # (Manual) (1.3-7.7) k/uL Monocytes # 2.08 H (0.20-1.00) X 10*3/uL Monocytes # (Manual) (0-1.0) k/uL PT (9.0-12.0) sec INR (<1.2) Sodium (137-145) mmol/L Glucose (74-99) mg/dL Calcium (8.4-10.2) mg/dL AST (17-59) U/L Alkaline Phosphatase (38-126) U/L Total Protein (6.3-8.2) g/dL Albumin (3.5-5.0) g/dL Ur Specific [place] 1.036 H (1.001-1.035) Urine Protein 1+ H (Negative) Urine Blood Large H (Negative) Ur Leukocyte Esterase Large H (Negative) Urine RBC 173 H (0-5) /hpf Urine WBC >182 H (0-5) /hpf Urine Bacteria Moderate H (None) /hpf Urine Mucus Many H (None) /hpf Microbiology - Last 24 Hours (Table) 09/22/22 03:17 Urine Culture - Preliminary Urine,Voided
[2022-09-22 11:46] LABS: African American GFR (CKD) 116.4 (60.0-200.0); Anion Gap 9.7 mmol/L (10.00-18.00); Blood Urea Nitrogen 10.5 mg/dL (9.0-27.0); Calcium 8.2 mg/dL (8.7-10.3); Carbon Dioxide 22.3 mmol/L (20.0-27.5); Non-African American GFR(CKD) 100.4 (60.0-200.0); Potassium 4.2 mmol/L (3.5-5.5)
[2022-09-22] MEDS: ENOXAPARIN 40 MG/0.4 ML SYRINGE SQ SCH (12:08)
[2022-09-22 12:31] VITALS: BMI 19.0
--- NOTE | 2022-09-22 21:10 | P.CONS ---
History of Present Illness - Reason for Consult Consult date: 09/22/22 History of metastatic colon cancer - Chief Complaint Weakness - History of Present Illness Mr. Garrison is a 62 year old gentleman with a PMHx significant for metastatic rectal cancer with progression on multiple lines of therapy who last received treatment with irinotecan/bevacizumab on 07/13/22 who presented with progressive weakness and anorexia. He was most recently admitted in August 2022 for pre- sacral abscess s/p ex-lap with drainage and partial colectmy with colostomy on 08/15/22. Fluid from the abscess was not sent for cultures. He was treated empirically with zosyn followed by course of cefitin and flagyl. CEA on 08/16/22 was 1333, which was lower than on 07/20/22 in clinic (3023). Plan from an oncologic perspective was to hold treatment for 4-6 weeks post operatively to allow for recovery. He reportedly had fever of 101 prior to presentation. He's had progressive weakness with anorexia over the past few weeks. He notes early satiety with food not tasting as good. He denies any abdominal pain, nausea, or vomiting. He has loose stool from the colostomy site with no blood, melena, hematochezia. In the ED, he had Tmax 99.7 with HRs ranging in 100s-110s. CBC noted WBC 17.55 (ANC 13.98), Hgb 8.8, and platelet count 683. UA was notable for large LE, > 182 WBCs, and urine nitrite. CT a/p revealed increase hypodense liver lesions, mild ascites, and right pleural effusion. He was given 1 L bolus NS, levofloxacin, and lasix. He was then started on ceftriaxone and admitted to medicine for additional management. Review of Systems 14 point review of systems was conducted with pertinent positives and negatives per HPI. Past Medical History Past Medical History: Cancer, GERD/Reflux, Prostate Disorder Additional Past Medical History / Comment(s): colon cancer-LAST CHEMO ON 07/14/22. GI BLEED MARCH 2020 possible lung Mets History of Any Multi-Drug Resistant Organisms: C-DIFF Year Discovered:: 03/21/2022 MDRO Source:: stool Past Surgical History: Bowel Resection, Cardiac Valve Replacement Additional Past Surgical History / Comment(s): liver/rectal colon cancer,. COLONOSCOPY. colostomy reversal January 2022, removed section of liver in 2019 Past Anesthesia/Blood Transfusion Reactions: No Reported Reaction Past Psychological History: No Psychological Hx Reported Smoking Status: Never smoker Past Alcohol Use History: None Reported Past Drug Use History: None Reported - Past Family History Father Family Medical History: Cancer Mother Family Medical History: Osteoarthritis (OA) Medications and Allergies Home Medications Medication Instructions Recorded Confirmed Type Acetaminophen Tab [Tylenol] 650 mg PO Q6HR PRN tab 08/08/22 09/21/22 Rx Mirtazapine 7.5 mg PO DAILY 08/14/22 09/21/22 History Triad 1 applic TOPICAL BID 08/14/22 09/21/22 History oxyCODONE HCL/ACETAMINOPHEN 1 tab PO Q4HR PRN 3 Days #18 tab 08/23/22 09/21/22 Rx [Percocet 10-325 mg] Alfuzosin HCl [Alfuzosin HCl ER] 10 mg PO HS 09/21/22 09/21/22 History Lactulose 20 gm PO BID 09/21/22 09/21/22 History Levofloxacin [Levaquin] 500 mg PO DAILY 09/21/22 09/21/22 History Sennosides [Senokot] 17.2 mg PO DAILY 09/21/22 09/21/22 History Allergies Allergy/AdvReac Type Severity Reaction Status Date / Time Sulfa (Sulfonamide Allergy Anaphylaxis Verified 09/21/22 15:15 Antibiotics) Physical Exam Vitals: Vital Signs Temp Pulse Resp BP Pulse Ox 09/22/22 19:00 99.3 F 112 H 14 107/75 95 09/22/22 11:10 98.9 F 104 H 18 113/76 96 09/22/22 08:00 111 H 09/22/22 03:59 99.7 F H 109 H 14 104/73 96 Intake and Output 09/22/22 09/22/22 09/22/22 06:59 14:59 22:59 Output Total 350 310 Balance -350 -310 Output: Drainage 10 Right 10 Urine 350 300 Other: Voiding Method Indwelling Catheter Weight 56.699 kg 56.699 kg - Constitutional Appears thin General appearance: cooperative, no acute distress - EENT Eyes: EOMI - Respiratory Respiratory: right: diminished (Decreased breath sounds at right lung base with crackles.) - Cardiovascular Rhythm: regular Heart sounds: normal: S1, S2 - Gastrointestinal Colostomy with loose brown stool. Drainage from HOLDEN drain from abscess drainage with beige malodorous fluid General gastrointestinal: distended, normal bowel sounds, soft, no tenderness - Integumentary Integumentary: no rash - Neurologic Neurologic: CNII-XII intact - Psychiatric Psychiatric: appropriate affect Results CBC & Chem 7: 09/22/22 07:30 09/22/22 07:30 Labs: Abnormal Lab Results - Last 24 Hours (Table) 09/22/22 09/22/22 09/22/22 Range/Units 03:17 07:30 07:30 WBC 17.55 H (4.50-10.00) X 10*3/uL RBC 3.67 L (4.40-5.60) X 10*6/uL Hgb 8.8 L (13.0-17.0) g/dL Hct 30.1 L (39.6-50.0) % MCH 24.0 L (27.0-32.0) pg MCHC 29.2 L (32.0-37.0) g/dL RDW 21.1 H (11.5-14.5) % Plt Count 683 H (140-440) X 10*3/uL Immature Gran # 0.08 H (0.00-0.04) X 10*3/uL Neutrophils # 13.98 H (1.80-7.70) X 10*3/uL Monocytes # 2.08 H (0.20-1.00) X 10*3/uL Anion Gap 9.70 L (10.00-18.00) mmol/L Calcium 8.2 L (8.7-10.3) mg/dL Ur Specific [place] 1.036 H (1.001-1.035) Urine Protein 1+ H (Negative) Urine Blood Large H (Negative) Ur Leukocyte Esterase Large H (Negative) Urine RBC 173 H (0-5) /hpf Urine WBC >182 H (0-5) /hpf Urine Bacteria Moderate H (None) /hpf Urine Mucus Many H (None) /hpf Microbiology - Last 24 Hours (Table) 09/22/22 03:17 Urine Culture - Preliminary Urine,Voided CT scan - abdomen: report reviewed Assessment and Plan Assessment: Mr. Garrison is a 62 year old gentleman with a PMHx significant for metastatic rectal cancer with progression on multiple lines of treatment presenting with increased weakness, anorexia, and early satiety found to have UTI and radiographic evidence concerning for disease progression. (1) UTI (urinary tract infection) Current Visit: Yes Status: Acute Code(s): N39.0 - URINARY TRACT INFECTION, SITE NOT SPECIFIED SNOMED Code(s): 89892079 (2) Rectal cancer metastasized to liver Current Visit: Yes Status: Chronic Code(s): C20 - MALIGNANT NEOPLASM OF RECTUM; C78.7 - SECONDARY MALIG NEOPLASM OF LIVER AND INTRAHEPATIC BILE DUCT SNOMED Code(s): 6800805058485 Plan: #UTI -UA on admission positive for nitrites, WBCs, and LE -Urine culture sent -Penn catheter exchanged on admission -On empiric ceftriaxone pending urine cultures #Metastatic rectal cancer -Most recently complicated by pre-sacral abscess s/p ex-lap with drainage, partial colectomy with colostomy on 08/15/22 -HOLDEN drain with malodorous beige discharge -Given the malodorous discharge, there could still be persistent infection -Recommend ID consult to see if additional treatment is warranted -Repeat CEA ordered -Thoracentesis of right pleural fluid can be considered -Findings on CT a/p were discussed with Mr. Garrison -We agreed to treat underlying UTI for now and assess clinical response -I will discuss his case with his primary oncologist Dr. Andrade for additional management recommendations
[2022-09-23] MEDS: SODIUM CHLORIDE 0.9% 1,000 ML IV SCH ×4 (04:10→21:13)
[2022-09-23 07:04] LABS: Anisocytosis Slight; Basophils # (A) 0.1 k/uL (0-0.2); Basophils % (A) 0 %; Eosinophils # (A) 0.2 k/uL (0-0.7); Eosinophils % (A) 1 %; HCT 31.2 % (39.0-53.0); Hypochromasia Marked; Lymphocytes # (A) 1.2 k/uL (1.0-4.8); Lymphocytes % (A) 9 %; MCH 24.8 pg (25.0-35.0); MCHC 28.7 g/dL (31.0-37.0); MCV 86.5 fL (80.0-100.0); Mean Platelet Volume 8.6; Monocytes # (A) 1.3 k/uL (0-1.0); Monocytes % (A) 9 %; Neutrophils # (A) 10.7 k/uL (1.3-7.7); Neutrophils % (A) 78 %; Platelet Count 647 k/uL (150-450); RBC 3.61 m/uL (4.30-5.90); RDW 18.1 % (11.5-15.5); WBC 13.7 k/uL (3.8-10.6)
[2022-09-23 07:13] LABS: African American GFR (CKD) >90 (>60 ml/min/1.73 sqM); Anion Gap 4 mmol/L; Blood Urea Nitrogen 8 mg/dL (9-20); Calcium 7.6 mg/dL (8.4-10.2); Carbon Dioxide 22 mmol/L (22-30); Chloride 108 mmol/L (98-107); Glucose 89 mg/dL (74-99); Non-African American GFR(CKD) >90 (>60 ml/min/1.73 sqM); Potassium 3.8 mmol/L (3.5-5.1); Sodium 134 mmol/L (137-145)
[2022-09-23] MEDS: MIRTAZAPINE 15 MG TAB PO SCH (10:07)
[2022-09-23] MEDS: SENNOSIDES 8.6 MG TAB PO SCH (10:07)
[2022-09-23] MEDS: ENOXAPARIN 40 MG/0.4 ML SYRINGE SQ SCH (10:07)
[2022-09-23] MEDS: LACTULOSE 20 GM/30 ML CUP PO SCH ×2 (10:08→21:14)
--- NOTE | 2022-09-23 13:01 | P.PN ---
Subjective Progress Note Date: 09/23/22 Principal diagnosis: weakness Hospital Course: 62-year-old male with history of metastatic colon cancer presenting from [facility] for failure to thrive, poor appetite, generalized weakness, inability to ambulate. Patient has a Penn catheter in place after his recent bowel surgery. He also has a right HOLDEN drain in place for recent abscess. Per notes, He had f ever at the facility. He denies any subjective fevers, chills, shortness of breath, chest pain, cough, abdominal pain. On admission, he had leukocytosis. Vital signs were otherwise unremarkable. Chest x-ray showed no acute process. Abdomen CT showed liver mets increased from prior, new right pleural effusion, abdominal ascites. Patient being treated for possible UTI. Oncology consulted. Infectious disease also consulted for possible other source of infection. Subjective: Patient seen and examined at bedside. No acute events overnight. He denies any significant chest pain, shortness of breath, abdominal pain. Denies any diarrhea, constipation, nausea, vomiting. His appetite is improving. He continues to have a Penn catheter. Pertinent positives and negatives as discussed above, a complete review of systems was performed and all other systems are negative. Vitals Signs Reviewed. General: nontoxic, no distress, appears at stated age, cachectic Derm: warm, dry Head: atraumatic, normocephalic, symmetric Eyes: EOMI, no lid lag, anicteric sclera Mouth: no lip lesion, mucus membranes moist Cardiovascular: S1S2 reg, no murmur Lungs: CTA bilateral, no rhonchi, no rales , no accessory muscle use Abdominal: soft, nontender to palpation, no guarding, left ostomy, right HOLDEN drain with brown colored drainage Ext: no gross muscle atrophy, no edema, no contractures Neuro: CN II-XI grossly intact, no focal neuro deficits Psych: Alert, oriented, appropriate affect Assessment and Plan: SIRS Possible UTI Penn catheter for chronic urinary retention -replaced this admission Leukocytosis History of pelvic abscess, status post HOLDEN drain Hypovolemic hyponatremia - improved Generalized weakness, debility Deconditioned Metastatic colon cancer status post resection -IV fluids -IV ceftriaxone and IV Flagyl -Urine culture growing skin and/or genital marzena, and blood cultures pending -Oncology and ID consult -PT/OT -Medications reviewed and reconciled DVT ppx: Lovenox Code status: Full code Anticipated discharge place: [facility] Anticipated discharge time: 2+ days Objective - Vital Signs Vital signs: Vital Signs Temp 99.1 F 09/23/22 11:20 Pulse 94 09/23/22 11:20 Resp 18 09/23/22 11:20 BP 123/80 09/23/22 11:20 Pulse Ox 96 09/23/22 11:20 FiO2 Intake & Output 09/22/22 09/23/22 09/23/22 18:59 06:59 18:59 Output Total 310 575 200 Balance -310 -575 -200 Weight 56.699 kg Output: Drainage 10 Right 10 Urine 300 450 Stool 125 200 Other: Voiding Method Indwelling Catheter Indwelling Catheter Indwelling Catheter # Bowel Movements 1 - Labs CBC & Chem 7: 09/23/22 06:14 09/23/22 06:14 Labs: Abnormal Lab Results - Last 24 Hours (Table) 09/23/22 09/23/22 09/23/22 Range/Units 06:14 06:14 06:14 WBC 13.7 H (3.8-10.6) k/uL RBC 3.61 L (4.30-5.90) m/uL Hgb 9.0 L (13.0-17.5) gm/dL Hct 31.2 L (39.0-53.0) % MCH 24.8 L (25.0-35.0) pg MCHC 28.7 L (31.0-37.0) g/dL RDW 18.1 H (11.5-15.5) % Plt Count 647 H (150-450) k/uL Neutrophils # 10.7 H (1.3-7.7) k/uL Monocytes # 1.3 H (0-1.0) k/uL Sodium 134 L (137-145) mmol/L Chloride 108 H (98-107) mmol/L BUN 8 L (9-20) mg/dL Creatinine 0.63 L (0.66-1.25) mg/dL Calcium 7.6 L (8.4-10.2) mg/dL Carcinoembryonic Ag 5216.0 H (0.0-4.9) ng/mL Microbiology - Last 24 Hours (Table) 09/22/22 03:17 Urine Culture - Final Urine,Voided
[2022-09-23 15:05] LABS: Appearance,Urine Clear (Clear); Bacteria,Urine Rare /hpf; Bilirubin,Urine Negative (Negative); Blood,Urine Negative (Negative); Color,Urine Yellow; Glucose,Urine (UA) Negative (Negative); Ketones,Urine Negative (Negative); Leukocyte Esterase,Urine Small (Negative); Mucus,Urine Few /hpf; Nitrite,Urine Negative (Negative); Protein,Urine Trace (Negative); RBC,Urine 3 /hpf (0-5); Specific Gravity,Urine 1.011 (1.001-1.035); Urobilinogen,Urine <2.0 mg/dL (<2.0); WBC,Urine 18 /hpf (0-5)
[2022-09-23] MEDS: metroNIDAZOLE-NS PMX 500 MG in SALINE 1 100ML.BAG IVPB SCH (16:11)
[2022-09-23] MEDS: NON FORMULARY DRUG (Alfuzosin Hcl [Alfuzosin Hcl Er] 10 MG Tab.Er.24h) PO SCH (21:13)
--- NOTE | 2022-09-23 23:11 | P.CONS ---
History of Present Illness - Reason for Consult Consult date: 09/23/22 Sepsis UTI Requesting physician: Lauri Robles - Chief Complaint Not feeling well to decrease appetite x few days - History of Present Illness Patient is a 62-year-old male with a past medical history significant for metastatic rectal cancer in this patient who was recently admitted to the hospital and did have presacral abscess status post exploratory laparotomy with revision of the presacral abscess partial colectomy and colostomy patient did not have any OR culture done did receive antibiotic therapy and the [facility] Ceftin and Flagyl x10 days patient has not been brought back to the ER on 09/21/2022 for evaluation of weight loss decreased appetite food does not taste good has been complaining of mild generalized abdominal pain but no vomiting intensity of the pain is currently 8 of 10 and no radiation patient on presentation to the hospital was afebrile he did have low-grade fever of 99.7 F patient did have white count of 15 point 5 repeat was 17.5 yesterday however is down to 13.7 today patient did have blood cultures drawn which are currently pending he did have a positive UA however urine culture has been negative patient did have a CT of abdominal pelvis completed which did show some mild abdominal ascites. Catheter noted in the pelvis which is a change compared to old exam patient is currently being treated with a Rocephin and Flagyl infectious disease was consulted today rachel rning for possible continued pelvic abscess as the patient did have a continued purulent drainage in his HOLDEN drain which has been there for more than a month now, patient did have a positive UA however he did have a chronic indwelling Penn catheter since his last admission mention it was changed few days ago denies any suprapubic or flank pain Review of Systems Positive point has been mentioned in the HPI rest of the systems are negative Past Medical History Past Medical History: Cancer, GERD/Reflux, Prostate Disorder Additional Past Medical History / Comment(s): colon cancer-LAST CHEMO ON 07/14/22. GI BLEED MARCH 2020 possible lung Mets History of Any Multi-Drug Resistant Organisms: C-DIFF Year Discovered:: 03/21/2022 MDRO Source:: stool Past Surgical History: Bowel Resection, Cardiac Valve Replacement Additional Past Surgical History / Comment(s): liver/rectal colon cancer,. COLONOSCOPY. colostomy reversal January 2022, removed section of liver in 2019 Past Anesthesia/Blood Transfusion Reactions: No Reported Reaction Past Psychological History: No Psychological Hx Reported Smoking Status: Never smoker Past Alcohol Use History: None Reported Past Drug Use History: None Reported - Past Family History Father Family Medical History: Cancer Mother Family Medical History: Osteoarthritis (OA) Medications and Allergies Home Medications Medication Instructions Recorded Confirmed Type Acetaminophen Tab [Tylenol] 650 mg PO Q6HR PRN tab 08/08/22 09/21/22 Rx Mirtazapine 7.5 mg PO DAILY 08/14/22 09/21/22 History Triad 1 applic TOPICAL BID 08/14/22 09/21/22 History oxyCODONE HCL/ACETAMINOPHEN 1 tab PO Q4HR PRN 3 Days #18 tab 08/23/22 09/21/22 Rx [Percocet 10-325 mg] Alfuzosin HCl [Alfuzosin HCl ER] 10 mg PO HS 09/21/22 09/21/22 History Lactulose 20 gm PO BID 09/21/22 09/21/22 History Sennosides [Senokot] 17.2 mg PO DAILY 09/21/22 09/21/22 History cefTRIAXone [Rocephin] 2 gm IVPB Q24HR 14 Days each 09/27/22 Rx metroNIDAZOLE [Flagyl] 500 mg PO TID 14 Days tab 09/27/22 Rx Allergies Allergy/AdvReac Type Severity Reaction Status Date / Time Sulfa (Sulfonamide Allergy Anaphylaxis Verified 09/21/22 15:15 Antibiotics) Physical Exam Vitals: Vital Signs Temp Pulse Resp BP Pulse Ox 09/23/22 11:20 99.1 F 94 18 123/80 96 09/23/22 09:30 91 141/69 09/23/22 09:00 98 14 09/23/22 04:08 98.9 F 98 14 136/76 96 09/22/22 19:00 99.3 F 112 H 14 107/75 95 Intake and Output 09/22/22 09/23/22 09/23/22 22:59 06:59 14:59 Output Total 310 575 200 Balance -310 -575 -200 Output: Drainage 10 Right 10 Urine 300 450 Stool 125 200 Other: Voiding Method Indwelling Catheter Indwelling Catheter # Bowel Movements 1 GENERAL DESCRIPTION: Middle-aged male lying in bed, no distress. No tachypnea or accessory muscle of respiration use. HEENT: Shows Pallor , no scleral icterus. Oral mucous membrane is dry. No pharyngeal erythema or thrush NECK: Trachea central, no thyromegaly. LUNGS: Unlabored breathing. Decreased breath sounds at the base. No wheeze or crackle. HEART: S1, S2, regular rate and rhythm. No loud murmur ABDOMEN: Soft, abdominal incision is healed no tenderness , did have a purulent drainage in the HOLDEN drain EXTREMITIES: No edema of feet. SKIN: No rash, no masses palpable. NEUROLOGICAL: The patient is awake, alert, oriented x3, mood and affect normal. Results CBC & Chem 7: 09/26/22 04:40 09/26/22 04:40 Labs: Abnormal Lab Results - Last 24 Hours (Table) 09/23/22 09/23/22 09/23/22 Range/Units 06:14 06:14 06:14 WBC 13.7 H (3.8-10.6) k/uL RBC 3.61 L (4.30-5.90) m/uL Hgb 9.0 L (13.0-17.5) gm/dL Hct 31.2 L (39.0-53.0) % MCH 24.8 L (25.0-35.0) pg MCHC 28.7 L (31.0-37.0) g/dL RDW 18.1 H (11.5-15.5) % Plt Count 647 H (150-450) k/uL Neutrophils # 10.7 H (1.3-7.7) k/uL Monocytes # 1.3 H (0-1.0) k/uL Sodium 134 L (137-145) mmol/L Chloride 108 H (98-107) mmol/L BUN 8 L (9-20) mg/dL Creatinine 0.63 L (0.66-1.25) mg/dL Calcium 7.6 L (8.4-10.2) mg/dL Carcinoembryonic Ag 5216.0 H (0.0-4.9) ng/mL Microbiology - Last 24 Hours (Table) 09/22/22 03:17 Urine Culture - Final Urine,Voided Assessment and Plan (1) Intra-abdominal abscess Status: Acute Code(s): K65.1 - PERITONEAL ABSCESS SNOMED Code(s): 12896646 Plan: 1patient with history of presacral abscess in this patient who is status post laparotomy with partial colectomy and drainage of the abscess unfortunately no culture was done on last admission subsequently presented back to the hospital for decreased appetite weight loss and not feeling well he did have low-grade fever and elevated white count and did have persistent purulent drainage through the HOLDEN drain CT abdominal pelvis was mostly ascites and did not mention any localized fluid collection. 2patient with a positive UA culture has been negative question of possible Fo oc colonization. 3CT will be reviewed with radiologist to see if the fluid could be CT-guided drain,. 4continue with Rocephin and Flagyl at this point and the white count is trending down. We will follow on clinical condition and cultures to further adjust medication if needed Thank you for this consultation will follow this patient along with you Time with Patient: Greater than 30
[2022-09-24] MEDS: metroNIDAZOLE-NS PMX 500 MG in SALINE 1 100ML.BAG IVPB SCH ×3 (00:28→15:42)
[2022-09-24] MEDS: LACTULOSE 20 GM/30 ML CUP PO SCH ×3 (09:51→20:41)
[2022-09-24] MEDS: MIRTAZAPINE 15 MG TAB PO SCH (09:51)
[2022-09-24] MEDS: SENNOSIDES 8.6 MG TAB PO SCH (09:51)
[2022-09-24] MEDS: ENOXAPARIN 40 MG/0.4 ML SYRINGE SQ SCH (09:51)
[2022-09-24 10:18] LABS: Basophils # (A) 0.02 X 10*3/uL (0.00-0.10); Basophils % (A) 0.2 %; Eosinophils # (A) 0.09 X 10*3/uL (0.04-0.35); Eosinophils % (A) 0.8 %; HCT 29.7 % (39.6-50.0); HGB 8.5 g/dL (13.0-17.0); Immature Grans, Automated 0.4 %; Lymphocytes # (A) 1.25 X 10*3/uL (0.90-5.00); Lymphocytes % (A) 10.8 %; MCH 23.5 pg (27.0-32.0); MCHC 28.6 g/dL (32.0-37.0); Mean Platelet Volume 9.9 fL (9.5-12.2); Monocytes # (A) 1.46 X 10*3/uL (0.20-1.00); Monocytes % (A) 12.6 %; NRBC Per 100 WBC 0 /100 WBCS (0.0-0.0); Neutrophils # (A) 8.72 X 10*3/uL (1.80-7.70); Neutrophils % (A) 75.2 %; Platelet Count 627 X 10*3/uL (140-440); RBC 3.62 X 10*6/uL (4.40-5.60); RDW 21.1 % (11.5-14.5); WBC 11.59 X 10*3/uL (4.50-10.00)
[2022-09-24 10:46] LABS: Anion Gap 9.8 mmol/L (10.00-18.00); BUN/Creat Ratio 8.83 Ratio (12.00-20.00); Blood Urea Nitrogen 5.3 mg/dL (9.0-27.0); Calcium 7.9 mg/dL (8.7-10.3); Carbon Dioxide 19.2 mmol/L (20.0-27.5); Potassium 3.7 mmol/L (3.5-5.5)
--- NOTE | 2022-09-24 11:19 | P.PN ---
Subjective Progress Note Date: 09/24/22 Principal diagnosis: weakness Hospital Course: 62-year-old male with history of metastatic colon cancer presenting from [facility] for failure to thrive, poor appetite, generalized weakness, inability to ambulate. Patient has a Penn catheter in place after his recent bowel surgery. He also has a right HOLDEN drain in place for recent abscess. Per notes, He had f ever at the facility. He denies any subjective fevers, chills, shortness of breath, chest pain, cough, abdominal pain. On admission, he had leukocytosis. Vital signs were otherwise unremarkable. Chest x-ray showed no acute process. Abdomen CT showed liver mets increased from prior, new right pleural effusion, abdominal ascites. Patient being treated for possible UTI. Oncology consulted. Infectious disease also consulted for possible other source of infection. Currently on IV antibiotics. Subjective: Patient seen and examined at bedside. No acute events overnight. He denies any significant chest pain, shortness of breath, abdominal pain. Denies any diarrhea, constipation, nausea, vomiting. His appetite is improving. He continues to have a Penn catheter. Pertinent positives and negatives as discussed above, a complete review of systems was performed and all other systems are negative. Vitals Signs Reviewed. General: nontoxic, no distress, appears at stated age, cachectic Derm: warm, dry Head: atraumatic, normocephalic, symmetric Eyes: EOMI, no lid lag, anicteric sclera Mouth: no lip lesion, mucus membranes moist Cardiovascular: S1S2 reg, no murmur Lungs: CTA bilateral, no rhonchi, no rales , no accessory muscle use Abdominal: soft, nontender to palpation, no guarding, left ostomy, right HOLDEN drain with brown colored drainage Ext: no gross muscle atrophy, no edema, no contractures Neuro: CN II-XI grossly intact, no focal neuro deficits Psych: Alert, oriented, appropriate affect Assessment and Plan: SIRS Possible UTI Penn catheter for chronic urinary retention -replaced this admission Leukocytosis - improving History of pelvic abscess, status post HOLDEN drain Hypovolemic hyponatremia -resolved Generalized weakness, debility Deconditioned Metastatic colon cancer status post resection, elevated CEA -IV fluids -IV ceftriaxone and IV Flagyl -Urine culture growing skin and/or genital marzena, and blood cultures pending -Oncology and ID consult -PT/OT -Medications reviewed and reconciled DVT ppx: Lovenox Code status: Full code Anticipated discharge place: [facility] Anticipated discharge time: Pending clinical course Objective - Vital Signs Vital signs: Vital Signs Temp 98.2 F 09/24/22 05:18 Pulse 89 09/24/22 05:18 Resp 16 09/24/22 05:18 BP 123/81 09/24/22 05:18 Pulse Ox 95 09/24/22 05:18 FiO2 Intake & Output 09/23/22 09/24/22 09/24/22 18:59 06:59 18:59 Intake Total 1100 Output Total 700 1110 Balance -700 -10 Intake: Intake, IV Titration 1100 Amount Sodium Chloride 0.9% 1, 1000 000 ml @ 130 mls/hr IV . Q7H42M [facility] Rx#:[id number] metroNIDAZOLE-NS PMX 500 100 mg In Saline 1 100ml.bag @ 100 mls/hr IVPB Q8HR [facility] Rx#:[id number] Output: Drainage 10 Right 10 Urine 500 850 Stool 200 250 Other: Voiding Method Indwelling Catheter Indwelling Catheter # Bowel Movements 1 - Labs CBC & Chem 7: 09/24/22 06:42 09/24/22 06:42 Labs: Abnormal Lab Results - Last 24 Hours (Table) 09/23/22 09/23/22 09/24/22 Range/Units 06:14 Unknown 06:42 WBC 11.59 H (4.50-10.00) X 10*3/uL RBC 3.62 L (4.40-5.60) X 10*6/uL Hgb 8.5 L (13.0-17.0) g/dL Hct 29.7 L (39.6-50.0) % MCH 23.5 L (27.0-32.0) pg MCHC 28.6 L (32.0-37.0) g/dL RDW 21.1 H (11.5-14.5) % Plt Count 627 H (140-440) X 10*3/uL Immature Gran # 0.05 H (0.00-0.04) X 10*3/uL Neutrophils # 8.72 H (1.80-7.70) X 10*3/uL Monocytes # 1.46 H (0.20-1.00) X 10*3/uL Carbon Dioxide (20.0-27.5) mmol/L Anion Gap (10.00-18.00) mmol/L BUN (9.0-27.0) mg/dL BUN/Creatinine Ratio (12.00-20.00) Ratio Calcium (8.7-10.3) mg/dL Carcinoembryonic Ag 5216.0 H (0.0-4.9) ng/mL Urine Protein Trace H (Negative) Ur Leukocyte Esterase Small H (Negative) Urine WBC 18 H (0-5) /hpf Urine Bacteria Rare H (None) /hpf Urine Mucus Few H (None) /hpf 09/24/22 Range/Units 06:42 WBC (4.50-10.00) X 10*3/uL RBC (4.40-5.60) X 10*6/uL Hgb (13.0-17.0) g/dL Hct (39.6-50.0) % MCH (27.0-32.0) pg MCHC (32.0-37.0) g/dL RDW (11.5-14.5) % Plt Count (140-440) X 10*3/uL Immature Gran # (0.00-0.04) X 10*3/uL Neutrophils # (1.80-7.70) X 10*3/uL Monocytes # (0.20-1.00) X 10*3/uL Carbon Dioxide 19.2 L (20.0-27.5) mmol/L Anion Gap 9.80 L (10.00-18.00) mmol/L BUN 5.3 L (9.0-27.0) mg/dL BUN/Creatinine Ratio 8.83 L (12.00-20.00) Ratio Calcium 7.9 L (8.7-10.3) mg/dL Carcinoembryonic Ag (0.0-4.9) ng/mL Urine Protein (Negative) Ur Leukocyte Esterase (Negative) Urine WBC (0-5) /hpf Urine Bacteria (None) /hpf Urine Mucus (None) /hpf Microbiology - Last 24 Hours (Table) 09/23/22 Unknown Urine Culture - Preliminary Urine,Voided 09/22/22 12:07 Blood Culture - Preliminary Blood No Growth after 24 hours 09/22/22 12:04 Blood Culture - Preliminary Blood No Growth after 24 hours 09/22/22 03:17 Urine Culture - Final Urine,Voided
[2022-09-24] MEDS: SODIUM CHLORIDE 0.9% 1,000 ML IV SCH ×2 (12:57→15:42)
--- NOTE | 2022-09-24 12:58 | P.GSCN ---
History of Present Illness Consult date: 09/24/22 History of present illness: CHIEF COMPLAINT: Weakness HISTORY OF PRESENT ILLNESS: This is a 62-year-old male with a known history of metastatic rectal cancer diagnosed in 2018. Patient had resection of the rectal cancer and partial hepatic resection at [facility]. He had a leak at the resection site acquiring colostomy placement. He then had colostomy reversed a couple years ago. Patient had undergone chemotherapy. He is currently off of chemotherapy since his most recent surgery on 08/15/2022 where he had a exploratory laparotomy with drainage of presacral abscess with partial colectomy and colostomy. Patient denies any abdominal pain. Denies any nausea or vomiting his ostomy is functioning. He his main complaint is overall weakness. He reports a poor appetite and states that everything tastes "like dirt". Patient has been found to have evidence of a UTI. He is currently on antibiotics. Computed tomography scan abdomen and pelvis shows numerous hypodense liver lesions. These are significantly increased compared to old exam and consistent with progression of metastatic disease. There is right pleural effusion which is mostly new compared to old exam. There is mild abdominal ascites. There is improvement in the hydronephrosis of the kidneys compared to old exam. Patient still has a HOLDEN drain in place since his surgery. The output through the HOLDEN drain is purulent. Patient has had 10 mL purulent drainage output. He reports that at [facility] they were attempting the drain daily. PAST MEDICAL HISTORY: See below PAST SURGICAL HISTORY: See below MEDICATIONS: See below ALLERGIES: See below SOCIAL HISTORY: No illicit drug use. REVIEW OF SYSTEMS: CONSTITUTIONAL: Denies fever or chills. HEENT: Denies blurred vision, vision changes, or eye pain. Denies hemoptysis CARDIOVASCULAR: Denies chest pain or pressure. RESPIRATORY: No shortness of breath. GASTROINTESTINAL: See HPI for pertinent findings HEMATOLOGIC: Denies bleeding disorders. GENITOURINARY: Denies any blood in urine or increased urinary frequency. SKIN: Denies pruitis. Denies rash. PHYSICAL EXAM: VITAL SIGNS: Reviewed GENERAL: Well-developed in no acute distress. HEENT: No sclera icterus. Extraocular movements grossly intact. Moist buccal mucosa. Head is atraumatic, normocephalic. No nasal drainage. ABDOMEN: Soft. Nondistended. Nontender. Ostomy functioning. HOLDEN drain on the right side of abdomen with purulent output. HOLDEN drain insertion site with some mucus that was able to be wiped away. Otherwise clean dry and intact NEUROLOGIC: Alert and oriented. Cranial nerves II through XII grossly intact. LABORATORY DATA: WBC 17.55 down to 11.59 hemoglobin 8.5 platelets 627 Sodium is 135 potassium is 3.7 creatinine 0.6 Urinalysis positive for UTI Elevated CEA level IMAGING: Computed tomography scan abdomen and pelvis stated above ASSESSMENT: 1. Generalized weakness and poor oral intake 2. UTI with questionable Penn catheter colonization per ID service. Repeat culture pending. 3. History of presacral abscess status post exploratory laparotomy with drainage of presacral abscess, partial colectomy with colostomy on 08/15/2022 4. History of metastatic rectal cancer with prior resection and partial resection of the liver PLAN: -Further recommendations forthcoming per surgeon -Continue antibiotics per ID -Continue to monitor HOLDEN drain output -Continue supportive care Physician Rabbit Dresser note has been reviewed by physician. Signing provider agrees with the documented findings, assessment, and plan of care. Past Medical History Past Medical History: Cancer, GERD/Reflux, Prostate Disorder Additional Past Medical History / Comment(s): colon cancer-LAST CHEMO ON 07/14/22. GI BLEED MARCH 2020 possible lung Mets History of Any Multi-Drug Resistant Organisms: C-DIFF Year Discovered:: 03/21/2022 MDRO Source:: stool Past Surgical History: Bowel Resection, Cardiac Valve Replacement Additional Past Surgical History / Comment(s): liver/rectal colon cancer,. COLONOSCOPY. colostomy reversal January 2022, removed section of liver in 2018 Past Anesthesia/Blood Transfusion Reactions: No Reported Reaction Past Psychological History: No Psychological Hx Reported Smoking Status: Never smoker Past Alcohol Use History: None Reported Past Drug Use History: None Reported - Past Family History Father Family Medical History: Cancer Mother Family Medical History: Osteoarthritis (OA) Medications and Allergies Home Medications Medication Instructions Recorded Confirmed Type Acetaminophen Tab [Tylenol] 650 mg PO Q6HR PRN tab 08/08/22 09/21/22 Rx Mirtazapine 7.5 mg PO DAILY 08/14/22 09/21/22 History Triad 1 applic TOPICAL BID 08/14/22 09/21/22 History oxyCODONE HCL/ACETAMINOPHEN 1 tab PO Q4HR PRN 3 Days #18 tab 08/23/22 09/21/22 Rx [Percocet 10-325 mg] Alfuzosin HCl [Alfuzosin HCl ER] 10 mg PO HS 09/21/22 09/21/22 History Lactulose 20 gm PO BID 09/21/22 09/21/22 History Levofloxacin [Levaquin] 500 mg PO DAILY 09/21/22 09/21/22 History Sennosides [Senokot] 17.2 mg PO DAILY 09/21/22 09/21/22 History Allergies Allergy/AdvReac Type Severity Reaction Status Date / Time Sulfa (Sulfonamide Allergy Anaphylaxis Verified 09/21/22 15:15 Antibiotics) Surgical - Exam Vital Signs Temp Pulse Resp BP Pulse Ox 98.1 F 98 20 105/74 99 09/21/22 15:13 09/21/22 15:13 09/21/22 15:13 09/21/22 15:13 09/21/22 15:13 Results - Labs 09/24/22 06:42 09/24/22 06:42 Abnormal Lab Results - Last 24 Hours (Table) 09/23/22 09/24/22 09/24/22 Range/Units Unknown 06:42 06:42 WBC 11.59 H (4.50-10.00) X 10*3/uL RBC 3.62 L (4.40-5.60) X 10*6/uL Hgb 8.5 L (13.0-17.0) g/dL Hct 29.7 L (39.6-50.0) % MCH 23.5 L (27.0-32.0) pg MCHC 28.6 L (32.0-37.0) g/dL RDW 21.1 H (11.5-14.5) % Plt Count 627 H (140-440) X 10*3/uL Immature Gran # 0.05 H (0.00-0.04) X 10*3/uL Neutrophils # 8.72 H (1.80-7.70) X 10*3/uL Monocytes # 1.46 H (0.20-1.00) X 10*3/uL Carbon Dioxide 19.2 L (20.0-27.5) mmol/L Anion Gap 9.80 L (10.00-18.00) mmol/L BUN 5.3 L (9.0-27.0) mg/dL BUN/Creatinine Ratio 8.83 L (12.00-20.00) Ratio Calcium 7.9 L (8.7-10.3) mg/dL Urine Protein Trace H (Negative) Ur Leukocyte Esterase Small H (Negative) Urine WBC 18 H (0-5) /hpf Urine Bacteria Rare H (None) /hpf Urine Mucus Few H (None) /hpf Microbiology - Last 24 Hours (Table) 09/23/22 Unknown Urine Culture - Preliminary Urine,Voided 09/22/22 12:07 Blood Culture - Preliminary Blood No Growth after 24 hours 09/22/22 12:04 Blood Culture - Preliminary Blood No Growth after 24 hours 09/22/22 03:17 Urine Culture - Final Urine,Voided Diabetes panel 09/24/22 Range/Units 06:42 Sodium 135 (135-145) mmol/L Potassium 3.7 (3.5-5.5) mmol/L Chloride 106 (96-109) mmol/L Carbon Dioxide 19.2 L (20.0-27.5) mmol/L BUN 5.3 L (9.0-27.0) mg/dL Creatinine 0.6 (0.6-1.5) mg/dL Glucose 92 (70-110) mg/dL Calcium 7.9 L (8.7-10.3) mg/dL Calcium panel 09/24/22 Range/Units 06:42 Calcium 7.9 L (8.7-10.3) mg/dL Pituitary panel 09/24/22 Range/Units 06:42 Sodium 135 (135-145) mmol/L Potassium 3.7 (3.5-5.5) mmol/L Chloride 106 (96-109) mmol/L Carbon Dioxide 19.2 L (20.0-27.5) mmol/L BUN 5.3 L (9.0-27.0) mg/dL Creatinine 0.6 (0.6-1.5) mg/dL Glucose 92 (70-110) mg/dL Calcium 7.9 L (8.7-10.3) mg/dL Adrenal panel 09/24/22 Range/Units 06:42 Sodium 135 (135-145) mmol/L Potassium 3.7 (3.5-5.5) mmol/L Chloride 106 (96-109) mmol/L Carbon Dioxide 19.2 L (20.0-27.5) mmol/L BUN 5.3 L (9.0-27.0) mg/dL Creatinine 0.6 (0.6-1.5) mg/dL Glucose 92 (70-110) mg/dL Calcium 7.9 L (8.7-10.3) mg/dL
--- NOTE | 2022-09-24 15:11 | P.GSCN ---
History of Present Illness Consult date: 09/24/22 History of present illness: 62-year-old gentleman admitted the hospital weakness and anorexia and a possible infection. The patient is a complicated history dating to 2018 revealed diagnosed with metastatic anal carcinoma requiring removal colostomy as well as a partial wedge resection of the liver. He had eventual takedown the colostomy. Most recently had an exploration identified a presacral abscess requiring colectomy and another colostomy. He has been at [facility]. He has come in with a weakness of indeterminate cause possible urinary infection. His abdomen indwelling catheter since his surgery. He had an attempt at voiding after the surgery but this failed. He denies difficulty urinating prior to these surgeries. He has seen 's plan was to leave the catheter in until he is stronger before a voiding trial. At present he is not on tamsulosin that I can see from the chart. He denies major back problems. He apparently has progression of his metastatic rectal cancer Review of Systems All systems: negative Past Medical History Past Medical History: Cancer, GERD/Reflux, Prostate Disorder Additional Past Medical History / Comment(s): colon cancer-LAST CHEMO ON 07/14/22. GI BLEED MARCH 2020 possible lung Mets History of Any Multi-Drug Resistant Organisms: C-DIFF Year Discovered:: 03/21/2022 MDRO Source:: stool Past Surgical History: Bowel Resection, Cardiac Valve Replacement Additional Past Surgical History / Comment(s): liver/rectal colon cancer,. COLONOSCOPY. colostomy reversal January 2022, removed section of liver in 2018 Past Anesthesia/Blood Transfusion Reactions: No Reported Reaction Past Psychological History: No Psychological Hx Reported Smoking Status: Never smoker Past Alcohol Use History: None Reported Past Drug Use History: None Reported - Past Family History Father Family Medical History: Cancer Mother Family Medical History: Osteoarthritis (OA) Medications and Allergies Home Medications Medication Instructions Recorded Confirmed Type Acetaminophen Tab [Tylenol] 650 mg PO Q6HR PRN tab 08/08/22 09/21/22 Rx Mirtazapine 7.5 mg PO DAILY 08/14/22 09/21/22 History Triad 1 applic TOPICAL BID 08/14/22 09/21/22 History oxyCODONE HCL/ACETAMINOPHEN 1 tab PO Q4HR PRN 3 Days #18 tab 08/23/22 09/21/22 Rx [Percocet 10-325 mg] Alfuzosin HCl [Alfuzosin HCl ER] 10 mg PO HS 09/21/22 09/21/22 History Lactulose 20 gm PO BID 09/21/22 09/21/22 History Levofloxacin [Levaquin] 500 mg PO DAILY 09/21/22 09/21/22 History Sennosides [Senokot] 17.2 mg PO DAILY 09/21/22 09/21/22 History Allergies Allergy/AdvReac Type Severity Reaction Status Date / Time Sulfa (Sulfonamide Allergy Anaphylaxis Verified 09/21/22 15:15 Antibiotics) Surgical - Exam Vital Signs Temp Pulse Resp BP Pulse Ox 98.1 F 98 20 105/74 99 09/21/22 15:13 09/21/22 15:13 09/21/22 15:13 09/21/22 15:13 09/21/22 15:13 - General Mild distress well developed, cachectic - Eyes PERRL - ENT no hearing loss - Neck trachea midline - Respiratory normal expansion, normal respiratory effort - Cardiovascular Rhythm: regular - Abdomen Colostomy Abdomen: soft, non tender - Genitourinary Indwelling catheter - Rectum Absent surgically - Neurologic normal sensation - Musculoskeletal normal posture - Psychiatric oriented to time, oriented to person, oriented to place, speech is normal, memory intact Results - Labs 09/24/22 06:42 09/24/22 06:42 Abnormal Lab Results - Last 24 Hours (Table) 09/23/22 09/24/22 09/24/22 Range/Units Unknown 06:42 06:42 WBC 11.59 H (4.50-10.00) X 10*3/uL RBC 3.62 L (4.40-5.60) X 10*6/uL Hgb 8.5 L (13.0-17.0) g/dL Hct 29.7 L (39.6-50.0) % MCH 23.5 L (27.0-32.0) pg MCHC 28.6 L (32.0-37.0) g/dL RDW 21.1 H (11.5-14.5) % Plt Count 627 H (140-440) X 10*3/uL Immature Gran # 0.05 H (0.00-0.04) X 10*3/uL Neutrophils # 8.72 H (1.80-7.70) X 10*3/uL Monocytes # 1.46 H (0.20-1.00) X 10*3/uL Carbon Dioxide 19.2 L (20.0-27.5) mmol/L Anion Gap 9.80 L (10.00-18.00) mmol/L BUN 5.3 L (9.0-27.0) mg/dL BUN/Creatinine Ratio 8.83 L (12.00-20.00) Ratio Calcium 7.9 L (8.7-10.3) mg/dL Urine Protein Trace H (Negative) Ur Leukocyte Esterase Small H (Negative) Urine WBC 18 H (0-5) /hpf Urine Bacteria Rare H (None) /hpf Urine Mucus Few H (None) /hpf Microbiology - Last 24 Hours (Table) 09/22/22 12:07 Blood Culture - Preliminary Blood No Growth after 48 hours 09/22/22 12:04 Blood Culture - Preliminary Blood No Growth after 48 hours 09/23/22 Unknown Urine Culture - Preliminary Urine,Voided Diabetes panel 09/24/22 Range/Units 06:42 Sodium 135 (135-145) mmol/L Potassium 3.7 (3.5-5.5) mmol/L Chloride 106 (96-109) mmol/L Carbon Dioxide 19.2 L (20.0-27.5) mmol/L BUN 5.3 L (9.0-27.0) mg/dL Creatinine 0.6 (0.6-1.5) mg/dL Glucose 92 (70-110) mg/dL Calcium 7.9 L (8.7-10.3) mg/dL Calcium panel 09/24/22 Range/Units 06:42 Calcium 7.9 L (8.7-10.3) mg/dL Pituitary panel 09/24/22 Range/Units 06:42 Sodium 135 (135-145) mmol/L Potassium 3.7 (3.5-5.5) mmol/L Chloride 106 (96-109) mmol/L Carbon Dioxide 19.2 L (20.0-27.5) mmol/L BUN 5.3 L (9.0-27.0) mg/dL Creatinine 0.6 (0.6-1.5) mg/dL Glucose 92 (70-110) mg/dL Calcium 7.9 L (8.7-10.3) mg/dL Adrenal panel 09/24/22 Range/Units 06:42 Sodium 135 (135-145) mmol/L Potassium 3.7 (3.5-5.5) mmol/L Chloride 106 (96-109) mmol/L Carbon Dioxide 19.2 L (20.0-27.5) mmol/L BUN 5.3 L (9.0-27.0) mg/dL Creatinine 0.6 (0.6-1.5) mg/dL Glucose 92 (70-110) mg/dL Calcium 7.9 L (8.7-10.3) mg/dL - Imaging CT scan - abdomen: report reviewed, image reviewed CT scan - pelvis: report reviewed, image reviewed Assessment and Plan Assessment: Impression: Urine retention, secondary to bladder overdistention aggravated by bladder neck obstruction from prostate enlargement aggravated by her logic injury from colectomy and perhaps tumor. Metastatic rectal cancer Recommendations: I will resume his Flomax. Drilling catheter should remain in place until his weakness has been reversed and he is ambulating. At that point time a voiding trial be appropriate. It should be done in the hospital prior to discharge.
[2022-09-24] MEDS: TAMSULOSIN 0.4 MG CAP.ER.24H PO SCH (17:54)
[2022-09-24] MEDS: NON FORMULARY DRUG (Alfuzosin Hcl [Alfuzosin Hcl Er] 10 MG Tab.Er.24h) PO SCH (20:41)
--- NOTE | 2022-09-24 21:59 | P.PN ---
Subjective Progress Note Date: 09/24/22 Principal diagnosis: weakness In f/u today pt reports no pain, fever, nausea. Output from HOLDEN drain is persistent but slightly less volume. Dias catheter is irritating and he wants out. He states he was getting better at [facility] but, then he just got really weak. Objective - Vital Signs Vital signs: Vital Signs Temp 98.2 F 09/24/22 05:18 Pulse 89 09/24/22 05:18 Resp 16 09/24/22 05:18 BP 123/81 09/24/22 05:18 Pulse Ox 95 09/24/22 05:18 FiO2 Intake & Output 09/23/22 09/24/22 09/24/22 18:59 06:59 18:59 Intake Total 1100 Output Total 700 1110 Balance -700 -10 Intake: Intake, IV Titration 1100 Amount Sodium Chloride 0.9% 1, 1000 000 ml @ 130 mls/hr IV . Q7H42M CHENG Rx#:[id number] metroNIDAZOLE-NS PMX 500 100 mg In Saline 1 100ml.bag @ 100 mls/hr IVPB Q8HR CHENG Rx#:[id number] Output: Drainage 10 Right 10 Urine 500 850 Stool 200 250 Other: Voiding Method Indwelling Catheter Indwelling Catheter # Bowel Movements 1 - Constitutional General appearance: Present: cooperative, no acute distress, thin - EENT Eyes: Present: anicteric sclerae, EOMI ENT: Present: hearing grossly normal - Respiratory Respiratory: bilateral: CTA - Cardiovascular Rhythm: regular Heart sounds: normal: S1, S2 Abnormal Heart Sounds: Absent: systolic murmur, diastolic murmur, rub, S3 Gallop, S4 Gallop, click, other - Peripheral edema leg Peripheral Edema: bilateral: None - Gastrointestinal Gastrointestinal Comment(s): brown, liquid stool in ostomy RLQ HOLDEN drain insertion site-no drainage, rivers liquid draining General gastrointestinal: Present: normal bowel sounds, soft - Genitourinary Genitourinary Comment(s): clear yellow urine in dias - Integumentary Integumentary: Present: normal turgor - Neurologic Neurologic: Present: CNII-XII intact - Musculoskeletal Musculoskeletal: Present: generalized weakness - Psychiatric Psychiatric: Present: A&O x's 3, appropriate affect, intact judgment & insight - Labs CBC & Chem 7: 09/24/22 06:42 09/24/22 06:42 Labs: Abnormal Lab Results - Last 24 Hours (Table) 09/23/22 09/23/22 09/24/22 Range/Units 06:14 Unknown 06:42 WBC 11.59 H (4.50-10.00) X 10*3/uL RBC 3.62 L (4.40-5.60) X 10*6/uL Hgb 8.5 L (13.0-17.0) g/dL Hct 29.7 L (39.6-50.0) % MCH 23.5 L (27.0-32.0) pg MCHC 28.6 L (32.0-37.0) g/dL RDW 21.1 H (11.5-14.5) % Plt Count 627 H (140-440) X 10*3/uL Immature Gran # 0.05 H (0.00-0.04) X 10*3/uL Neutrophils # 8.72 H (1.80-7.70) X 10*3/uL Monocytes # 1.46 H (0.20-1.00) X 10*3/uL Carbon Dioxide (20.0-27.5) mmol/L Anion Gap (10.00-18.00) mmol/L BUN (9.0-27.0) mg/dL BUN/Creatinine Ratio (12.00-20.00) Ratio Calcium (8.7-10.3) mg/dL Carcinoembryonic Ag 5216.0 H (0.0-4.9) ng/mL Urine Protein Trace H (Negative) Ur Leukocyte Esterase Small H (Negative) Urine WBC 18 H (0-5) /hpf Urine Bacteria Rare H (None) /hpf Urine Mucus Few H (None) /hpf 09/24/22 Range/Units 06:42 WBC (4.50-10.00) X 10*3/uL RBC (4.40-5.60) X 10*6/uL Hgb (13.0-17.0) g/dL Hct (39.6-50.0) % MCH (27.0-32.0) pg MCHC (32.0-37.0) g/dL RDW (11.5-14.5) % Plt Count (140-440) X 10*3/uL Immature Gran # (0.00-0.04) X 10*3/uL Neutrophils # (1.80-7.70) X 10*3/uL Monocytes # (0.20-1.00) X 10*3/uL Carbon Dioxide 19.2 L (20.0-27.5) mmol/L Anion Gap 9.80 L (10.00-18.00) mmol/L BUN 5.3 L (9.0-27.0) mg/dL BUN/Creatinine Ratio 8.83 L (12.00-20.00) Ratio Calcium 7.9 L (8.7-10.3) mg/dL Carcinoembryonic Ag (0.0-4.9) ng/mL Urine Protein (Negative) Ur Leukocyte Esterase (Negative) Urine WBC (0-5) /hpf Urine Bacteria (None) /hpf Urine Mucus (None) /hpf Microbiology - Last 24 Hours (Table) 09/23/22 Unknown Urine Culture - Preliminary Urine,Voided 09/22/22 12:07 Blood Culture - Preliminary Blood No Growth after 24 hours 09/22/22 12:04 Blood Culture - Preliminary Blood No Growth after 24 hours 09/22/22 03:17 Urine Culture - Final Urine,Voided Assessment and Plan (1) Weakness Current Visit: Yes Status: Acute Code(s): R53.1 - WEAKNESS SNOMED Code(s): 97488901 (2) Abscess, sacrum Current Visit: No Status: Acute Priority: High Code(s): M46.28 - OSTEOMYELITIS OF VERTEBRA, SACRAL AND SACROCOCCYGEAL REGION SNOMED Code(s): 887269252 (3) Rectal adenocarcinoma Current Visit: No Status: Chronic Priority: Medium Code(s): C20 - MALIGNANT NEOPLASM OF RECTUM SNOMED Code(s): 813836618 Plan: Weakness while in rehab. Pt is still feeling pretty weak. He is trying to participate with PT/OT while inpt Purulent drainage persists from HOLDEN. Pt reports he had f/u with Surgeon this week. Will consult Surgery to assess HOLDEN drain and give recommendations Pt has had dias since surgery. He is due to f/u with Urology soon. He is wanting the dias removed. Will ask Urology to assess pt and give recommendations regarding removal CEA is elevated. Some of the elevation can be related to inflammation in the pelvis. We have another lab at a moment in time to reflect back on as pt condition hopefully improves. Pt is not a candidate for treatment for rectal adenocarcinoma until he is healed from abscess and adequately rehabilitated to a performance status that he will be able to tolerate treatment. Attests: I have seen and examined pt, performed H&P, developed impression and plan of care. Discussed with dictator. Agree with documentation, dictated as a scribe.
[2022-09-25] MEDS: SODIUM CHLORIDE 0.9% 1,000 ML IV SCH ×3 (00:15→14:54)
[2022-09-25] MEDS: metroNIDAZOLE-NS PMX 500 MG in SALINE 1 100ML.BAG IVPB SCH ×3 (00:16→16:44)
[2022-09-25] MEDS: ENOXAPARIN 40 MG/0.4 ML SYRINGE SQ SCH (08:52)
[2022-09-25] MEDS: LACTULOSE 20 GM/30 ML CUP PO SCH ×2 (08:53→20:30)
[2022-09-25] MEDS: SENNOSIDES 8.6 MG TAB PO SCH (08:53)
[2022-09-25] MEDS: MIRTAZAPINE 15 MG TAB PO SCH (10:31)
--- NOTE | 2022-09-25 12:39 | P.PN ---
Subjective Progress Note Date: 09/25/22 Principal diagnosis: weakness Hospital Course: 62-year-old male with history of metastatic colon cancer presenting from [facility] for failure to thrive, poor appetite, generalized weakness, inability to ambulate. Patient has a Penn catheter in place after his recent bowel surgery. He also has a right HOLDEN drain in place for recent abscess. Per notes, He had f ever at the facility. He denies any subjective fevers, chills, shortness of breath, chest pain, cough, abdominal pain. On admission, he had leukocytosis. Vital signs were otherwise unremarkable. Chest x-ray showed no acute process. Abdomen CT showed liver mets increased from prior, new right pleural effusion, abdominal ascites. Patient being treated for possible UTI. Oncology consulted. Infectious disease also consulted for possible other source of infection. Currently on IV antibiotics. Surgery consulted with regards to presacral drain. Urology consulted with regards to urinary retention, recommended to do a voiding trial when patient inflammatory. Subjective: Patient seen and examined at bedside. No acute events overnight. He denies any significant chest pain, shortness of breath, abdominal pain. Denies any diarrhea, constipation, nausea, vomiting. His appetite is improving. He continues to have a Penn catheter. However, patient did ambulate using a walker with minimal supervision. Pertinent positives and negatives as discussed above, a complete review of [facility] was performed and all other systems are negative. Vitals Signs Reviewed. General: nontoxic, no distress, appears at stated age, cachectic Derm: warm, dry Head: atraumatic, normocephalic, symmetric Eyes: EOMI, no lid lag, anicteric sclera Mouth: no lip lesion, mucus membranes moist Cardiovascular: S1S2 reg, no murmur Lungs: CTA bilateral, no rhonchi, no rales , no accessory muscle use Abdominal: soft, nontender to palpation, no guarding, left ostomy, right HOLDEN drain with brown colored drainage Ext: no gross muscle atrophy, no edema, no contractures Neuro: CN II-XI grossly intact, no focal neuro deficits Psych: Alert, oriented, appropriate affect Assessment and Plan: SIRS Possible UTI Penn catheter for chronic urinary retention -replaced this admission Leukocytosis - improving History of pelvic abscess, status post HOLDEN drain Hypovolemic hyponatremia -resolved Generalized weakness, debility Deconditioned Metastatic colon cancer status post resection, elevated CEA -IV fluids, now reduced, encourage oral intake -IV ceftriaxone and IV Flagyl -Urine culture growing skin and/or genital marzena, and blood cultures pending -Oncology and ID consult -Urology consulted for urinary retention, Penn discontinued -Surgery consult -PT/OT -Medications reviewed DVT ppx: Lovenox Code status: Full code Anticipated discharge place: [facility] Anticipated discharge time: Pending clinical course Objective - Vital Signs Vital signs: Vital Signs Temp 98.2 F 09/25/22 05:00 Pulse 86 09/25/22 05:00 Resp 16 09/25/22 05:00 BP 125/84 09/25/22 05:00 Pulse Ox 94 L 09/25/22 05:00 FiO2 Intake & Output 09/24/22 09/25/22 09/25/22 18:59 06:59 18:59 Intake Total 1810 1530 Output Total 300 1400 Balance 1510 130 Intake: Intake, IV Titration 1810 1530 Amount Sodium Chloride 0.9% 1, 1560 1430 000 ml @ 130 mls/hr IV . Q7H42M CHENG Rx#:[id number] cefTRIAXone 2 gm In 50 Sodium Chloride 0.9% 50 ml @ 100 mls/hr IVPB Q24HR CHENG Rx#:[id number] metroNIDAZOLE-NS PMX 500 200 100 mg In Saline 1 100ml.bag @ 100 mls/hr IVPB Q8HR CHENG Rx#:[id number] Output: Urine 1100 Stool 300 300 Other: Voiding Method Indwelling Catheter Indwelling Catheter - Labs CBC & Chem 7: 09/24/22 06:42 09/24/22 06:42 Labs: Microbiology - Last 24 Hours (Table) 09/23/22 Unknown Urine Culture - Final Urine,Voided 09/22/22 12:07 Blood Culture - Preliminary Blood No Growth after 48 hours 09/22/22 12:04 Blood Culture - Preliminary Blood No Growth after 48 hours
--- NOTE | 2022-09-25 13:12 | P.PN ---
Subjective Progress Note Date: 09/25/22 CHIEF COMPLAINT: Weakness HISTORY OF PRESENT ILLNESS: Patient has a history of metastatic rectal cancer. Patient is sitting up at bedside chair. He still reports feeling weak. Patient reports poor oral intake. He denies any nausea or vomiting. His ostomy is functioning. Afebrile. WBC is 11.59 Hgb 8.5 0.627 sodium 135 potassium 3.7 creatinine 0.6. HOLDEN drain with 10 mL purulent output PHYSICAL EXAM: VITAL SIGNS: Reviewed. GENERAL: Well-developed in no acute distress. HEENT: No sclera icterus. Extraocular movements grossly intact. Moist buccal mucosa. Head is atraumatic, normocephalic. ABDOMEN: Soft. Nondistended. Nontender. NEUROLOGIC: Alert and oriented. Cranial nerves II through XII grossly intact. ASSESSMENT: 1. Generalized weakness and poor oral intake 2. History of presacral abscess status post exploratory laparotomy with drainage of presacral abscess, partial colectomy with colostomy on 08/15/2022 3. History of metastatic rectal cancer with prior resection and partial resection of the liver PLAN: -No surgical intervention planned -Continue HOLDEN drain -Continue antibiotics -Dr. Vail recommends hospice consult Physician Auto [employer] Detailer note has been reviewed by physician. Signing provider agrees with the documented findings, assessment, and plan of care. Objective - Vital Signs Vital signs: Vital Signs Temp 98.8 F 09/25/22 12:36 Pulse 94 09/25/22 12:36 Resp 18 09/25/22 12:36 BP 127/86 09/25/22 12:36 Pulse Ox 97 09/25/22 12:36 FiO2 Intake & Output 09/24/22 09/25/22 09/25/22 18:59 06:59 18:59 Intake Total 1810 1530 Output Total 300 1400 Balance 1510 130 Intake: Intake, IV Titration 1810 1530 Amount Sodium Chloride 0.9% 1, 1560 1430 000 ml @ 130 mls/hr IV . Q7H42M CHENG Rx#:[id number] cefTRIAXone 2 gm In 50 Sodium Chloride 0.9% 50 ml @ 100 mls/hr IVPB Q24HR CHENG Rx#:[id number] metroNIDAZOLE-NS PMX 500 200 100 mg In Saline 1 100ml.bag @ 100 mls/hr IVPB Q8HR CHENG Rx#:[id number] Output: Urine 1100 Stool 300 300 Other: Voiding Method Indwelling Catheter Indwelling Catheter - Labs CBC & Chem 7: 09/24/22 06:42 09/24/22 06:42 Labs: Microbiology - Last 24 Hours (Table) 09/23/22 Unknown Urine Culture - Final Urine,Voided 09/22/22 12:07 Blood Culture - Preliminary Blood No Growth after 48 hours 09/22/22 12:04 Blood Culture - Preliminary Blood No Growth after 48 hours
--- NOTE | 2022-09-25 13:16 | CDI ---
Documentation Clarification Form Date: 09/25/2022 01:01:18 PM From: Geetha HuberMERVIN saba, CCDS Admit Date: 09/21/2022 06:28:00 PM Patient Name: Elliot Garrison Visit Number: [id number] Discharge Date: ATTENTION: The Clinical Documentation Specialists (CDI) and [facility] Coding Staff appreciate your assistance in clarifying documentation. Please respond to the clarification below the line at the bottom and electronically sign. The CDI & [facility] Coding staff will review the response and follow-up if needed. Please note: Queries are made part of the Legal Health Record. If you have any questions, please contact the author of this message via ITS. Dr. Lauri Robles: Per the Attending Physician Progress Notes the patient is diagnosed with SIRS, Possible UTI, Penn catheter for Chronic Urinary Retention: replaced this admission. Urology consulted. 09/24 Urology Consult Impression: Urine retention, secondary to bladder overdistention aggravated by bladder neck obstruction from prostate enlargement aggravated by her logic injury from Colectomy and perhaps tumor. Metastatic Rectal Cancer. Additional clarification regarding the etiology of the UTI is requested. History/Risk Factors per the 09/21 H/P: GERD, Colon Cancer status post chemotherapy, GI Bleed March 2020, Possible Lung Mets, C Diff infection 03/21/2022. Clinical Indicators Presented to the ED 09/21 with Weakness, has been at SNF for rehab and has had a poor appetite with significant weight loss, mild generalized abdominal pain, fever this morning. Admit with Malnutrition, Dehydration, Rectal Cancer with mets to the Liver, Hyponatremia and Leukocytosis. 09/22 UA: Cloudy, Specific [place] 1.036, 1+ Protein, Large Blood, Positive Nitrite, Large Esterase, RBC 173, WBC >182. 09/22 Urine Culture: final: negative. 09/23 UA: Clear, Trace Protein, Small Esterase, WBC 18 09/23 Urine Culture: final: negative. Treatment 09/21 Blood culture, IV Na Chl 1,000 mls @ 999 mls/hr q1H, IV Na Chl 1,000 mls @ 130 mls/hr q7H. 09/22: po Levaquin 500 mg Daily, IV Rocephin 50 mls @ 100 mls/hr q24H. 09/23: IV Flagyl 100 mls @ 100 mls/hr q8H. 09/24: po Flomax, IV Na Chl 1,000 mls @ 75 mls/hr q13H. Please clarify the etiology of the UTI, if known: [ ] UTI due to Penn catheter [ ] UTI not due to Penn catheter [ ] Other condition, please specify: [ x ] Unable to determine (Template Last Revised: January 2021) MTDD
--- NOTE | 2022-09-25 13:21 | CDI ---
Documentation Clarification Form Date: 09/25/2022 01:16:46 PM From: Geetha Huber CCS, CCDS Admit Date: 09/21/2022 06:28:00 PM Patient Name: Elliot Garrison Visit Number: [id number] Discharge Date: ATTENTION: The Clinical Documentation Specialists (CDI) and [facility] Coding Staff appreciate your assistance in clarifying documentation. Please respond to the clarification below the line at the bottom and electronically sign. The CDI & [facility] Coding staff will review the response and follow-up if needed. Please note: Queries are made part of the Legal Health Record. If you have any questions, please contact the author of this message via ITS. Dr. Lauri Robles: The patient presented with the following clinical indicators. Additional clarification regarding the etiology/cause of the clinical indicators is requested. 09/21 H/P: Generalized debility and deconditioning. Fever and leukocytosis, no identifiable source of infection. Hyponatremia. Chronic Anemia and Metastatic Colon Cancer. 09/22 through 09/25 Attending Physician Progress Notes: SIRS. Possible UTI. Penn catheter for chronic urinary retention: replaced this admission. Leukocytosis. History/Risk Factors per the 09/21 H/P: GERD, Colon Cancer status post chemotherapy, GI Bleed March 2020, Possible Lung Mets, C Diff infection 03/21/2022. Clinical Indicators Presented to the ED 09/21 with Weakness, has been at SNF for rehab and has had a poor appetite with significant weight loss, mild generalized abdominal pain, fever this morning. Admit with Malnutrition, Dehydration, Rectal Cancer with mets to the Liver, Hyponatremia and Leukocytosis. 09/22 UA: Cloudy, Specific [place] 1.036, 1+ Protein, Large Blood, Positive Nitrite, Large Esterase, RBC 173, WBC >182. 09/22 Urine Culture: final: negative. Per 09/25 Attn PN: urine culture growing skin and/or genital marzena and blood cultures pending. Penn discontinued. 09/23 UA: Clear, Trace Protein, Small Esterase, WBC 18 09/23 Urine Culture: final: negative. Treatment 09/21 Blood culture, IV Na Chl 1,000 mls @ 999 mls/hr q1H, IV Na Chl 1,000 mls @ 130 mls/hr q7H. 09/22: po Levaquin 500 mg Daily, IV Rocephin 50 mls @ 100 mls/hr q24H. 09/23: IV Flagyl 100 mls @ 100 mls/hr q8H. 09/24: po Flomax, IV Na Chl 1,000 mls @ 75 mls/hr q13H. In your professional opinion, please clarify if these findings signify one of the following conditions: [ x] Sepsis POA [ ] Sepsis, Not POA [ ] Other, please specify: [ ] Unable to determine (Template Last Reviewed: December 2020) JUND
[2022-09-25] MEDS: TAMSULOSIN 0.4 MG CAP.ER.24H PO SCH (17:39)
[2022-09-25] MEDS: NON FORMULARY DRUG (Alfuzosin Hcl [Alfuzosin Hcl Er] 10 MG Tab.Er.24h) PO SCH (20:22)
--- NOTE | 2022-09-25 23:59 | P.PN ---
Subjective Progress Note Date: 09/24/22 Principal diagnosis: Leukocytosis and purulent HOLDEN drainage Patient is a 62-year-old male with a past medical history apparent for metastatic rectal cancer in this patient who was recently admitted to the hospital and did have a presacral abscess status post exploratory laparotomy drainage of the abscess patient did have a HOLDEN drain with persistent purulent drainage patient presented to hospital with weakness and decreased oral intake and also have elevated white count. On today's evaluation that is 09/24/2022 the patient denies having any fever or any chills, patient is feeling slightly better today he is breathing comfortably patient denies having any chest pain shortness of breath or cough no abdominal pain or diarrhea Objective - Vital Signs Vital signs: Vital Signs Temp 98.2 F 09/24/22 05:18 Pulse 89 09/24/22 05:18 Resp 16 09/24/22 05:18 BP 123/81 09/24/22 05:18 Pulse Ox 95 09/24/22 05:18 FiO2 Intake & Output 09/23/22 09/24/22 09/24/22 18:59 06:59 18:59 Intake Total 1100 Output Total 700 1110 Balance -700 -10 Intake: Intake, IV Titration 1100 Amount Sodium Chloride 0.9% 1, 1000 000 ml @ 130 mls/hr IV . Q7H42M [facility] Rx#:[id number] metroNIDAZOLE-NS PMX 500 100 mg In Saline 1 100ml.bag @ 100 mls/hr IVPB Q8HR [facility] Rx#:[id number] Output: Drainage 10 Right 10 Urine 500 850 Stool 200 250 Other: Voiding Method Indwelling Catheter Indwelling Catheter # Bowel Movements 1 - Exam GENERAL DESCRIPTION: Middle-aged male lying in bed in no distress RESPIRATORY SYSTEM: Unlabored breathing , decreased breath sounds at bases HEART: S1 S2 regular rate and rhythm , ABDOMEN: Soft , no tenderness EXTREMITIES: No edema feet - Labs CBC & Chem 7: 09/24/22 06:42 09/24/22 06:42 Labs: Abnormal Lab Results - Last 24 Hours (Table) 09/23/22 09/23/22 09/24/22 Range/Units 06:14 Unknown 06:42 WBC 11.59 H (4.50-10.00) X 10*3/uL RBC 3.62 L (4.40-5.60) X 10*6/uL Hgb 8.5 L (13.0-17.0) g/dL Hct 29.7 L (39.6-50.0) % MCH 23.5 L (27.0-32.0) pg MCHC 28.6 L (32.0-37.0) g/dL RDW 21.1 H (11.5-14.5) % Plt Count 627 H (140-440) X 10*3/uL Immature Gran # 0.05 H (0.00-0.04) X 10*3/uL Neutrophils # 8.72 H (1.80-7.70) X 10*3/uL Monocytes # 1.46 H (0.20-1.00) X 10*3/uL Carbon Dioxide (20.0-27.5) mmol/L Anion Gap (10.00-18.00) mmol/L BUN (9.0-27.0) mg/dL BUN/Creatinine Ratio (12.00-20.00) Ratio Calcium (8.7-10.3) mg/dL Carcinoembryonic Ag 5216.0 H (0.0-4.9) ng/mL Urine Protein Trace H (Negative) Ur Leukocyte Esterase Small H (Negative) Urine WBC 18 H (0-5) /hpf Urine Bacteria Rare H (None) /hpf Urine Mucus Few H (None) /hpf 09/24/22 Range/Units 06:42 WBC (4.50-10.00) X 10*3/uL RBC (4.40-5.60) X 10*6/uL Hgb (13.0-17.0) g/dL Hct (39.6-50.0) % MCH (27.0-32.0) pg MCHC (32.0-37.0) g/dL RDW (11.5-14.5) % Plt Count (140-440) X 10*3/uL Immature Gran # (0.00-0.04) X 10*3/uL Neutrophils # (1.80-7.70) X 10*3/uL Monocytes # (0.20-1.00) X 10*3/uL Carbon Dioxide 19.2 L (20.0-27.5) mmol/L Anion Gap 9.80 L (10.00-18.00) mmol/L BUN 5.3 L (9.0-27.0) mg/dL BUN/Creatinine Ratio 8.83 L (12.00-20.00) Ratio Calcium 7.9 L (8.7-10.3) mg/dL Carcinoembryonic Ag (0.0-4.9) ng/mL Urine Protein (Negative) Ur Leukocyte Esterase (Negative) Urine WBC (0-5) /hpf Urine Bacteria (None) /hpf Urine Mucus (None) /hpf Microbiology - Last 24 Hours (Table) 09/23/22 Unknown Urine Culture - Preliminary Urine,Voided 09/22/22 12:07 Blood Culture - Preliminary Blood No Growth after 24 hours 09/22/22 12:04 Blood Culture - Preliminary Blood No Growth after 24 hours 09/22/22 03:17 Urine Culture - Final Urine,Voided Assessment and Plan (1) Leukocytosis Current Visit: Yes Status: Acute Code(s): D72.829 - ELEVATED WHITE BLOOD CELL COUNT, UNSPECIFIED SNOMED Code(s): 362839935 Plan: 1patient with history of presacral abscess in this patient who is status post laparotomy with partial colectomy and drainage of the abscess unfortunately no culture was done on last admission subsequently presented back to the hospital for decreased appetite weight loss and not feeling well he did have low-grade fever and elevated white count and did have persistent purulent drainage through the HOLDEN drain CT abdominal pelvis was mostly ascites and did not mention any loca lized fluid collection. 2patient with a positive UA culture has been negative question of possible Penn colonization. 3Gen. surgery has been consulted awaiting their evaluation and need for any fur ther drainage. 4patient to continue with Rocephin and Flagyl and monitor clinical course closely Time with Patient: Less than 30
--- NOTE | 2022-09-26 | P.PN ---
Subjective Progress Note Date: 09/25/22 Principal diagnosis: Leukocytosis and purulent HOLDEN drainage Patient is a 62-year-old male with a past medical history apparent for metastatic rectal cancer in this patient who was recently admitted to the hospital and did have a presacral abscess status post exploratory laparotomy drainage of the abscess patient did have a HOLDEN drain with persistent purulent drainage patient presented to hospital with weakness and decreased oral intake and also have elevated white count. On today's evaluation that is 09/25/2022 the patient remains to be afebrile, patient is breathing comfortably on room air patient denies having any chest pain shortness of breath or cough no abdominal pain or diarrhea Objective - Vital Signs Vital signs: Vital Signs Temp 98.1 F 09/25/22 20:46 Pulse 92 09/25/22 20:46 Resp 16 09/25/22 20:46 BP 136/88 09/25/22 20:46 Pulse Ox 96 09/25/22 20:46 FiO2 Intake & Output 09/25/22 09/25/22 09/26/22 06:59 18:59 06:59 Intake Total 1530 900 Output Total 1400 375 Balance 130 525 Weight 56.699 kg Intake: Intake, IV Titration 1530 900 Amount Sodium Chloride 0.9% 1, 1430 000 ml @ 130 mls/hr IV . Q7H42M [facility] Rx#:[id number] Sodium Chloride 0.9% 1, 900 000 ml @ 75 mls/hr IV . [id number] [facility] Rx#:[id number] metroNIDAZOLE-NS PMX 500 100 mg In Saline 1 100ml.bag @ 100 mls/hr IVPB Q8HR [facility] Rx#:[id number] Output: Urine 1100 375 Straight 375 Stool 300 Other: Voiding Method Indwelling Catheter Urinal - Exam GENERAL DESCRIPTION: Middle-aged male lying in bed in no distress RESPIRATORY SYSTEM: Unlabored breathing , decreased breath sounds at bases HEART: S1 S2 regular rate and rhythm , ABDOMEN: Soft , no tenderness EXTREMITIES: No edema feet - Labs CBC & Chem 7: 09/24/22 06:42 09/24/22 06:42 Labs: Microbiology - Last 24 Hours (Table) 09/22/22 12:07 Blood Culture - Preliminary Blood No Growth after 72 hours 09/22/22 12:04 Blood Culture - Preliminary Blood No Growth after 72 hours 09/23/22 Unknown Urine Culture - Final Urine,Voided Assessment and Plan (1) Leukocytosis Current Visit: Yes Status: Acute Code(s): D72.829 - ELEVATED WHITE BLOOD CELL COUNT, UNSPECIFIED SNOMED Code(s): 370088977 Plan: 1patient with history of presacral abscess in this patient who is status post laparotomy with partial colectomy and drainage of the abscess unfortunately no culture was done on last admission subsequently presented back to the hospital for decreased appetite weight loss and not feeling well he did have low-grade f ever and elevated white count and did have persistent purulent drainage through the HOLDEN drain CT abdominal pelvis was mostly ascites and did not mention any localized fluid collection. 2patient with a positive UA culture has been negative question of possible Penn colonization. 3Gen. surgery has been consulted, recommending hospice evaluation. 4patient seemed to have shown some clinical improvement in the white count is trending down to continue with Rocephin and Flagyl and we'll repeat his CBC and inflammatory markers with a.m. lab Time with Patient: Less than 30
[2022-09-26] MEDS: metroNIDAZOLE-NS PMX 500 MG in SALINE 1 100ML.BAG IVPB SCH ×3 (00:17→15:08)
[2022-09-26] MEDS: SODIUM CHLORIDE 0.9% 1,000 ML IV SCH ×2 (03:41→18:08)
--- NOTE | 2022-09-26 08:18 | P.PN ---
Progress Note - Text Progress Note Date: 09/26/22 Patient has been retaining approximately half of his urine. PVR this morning showed 400ml of urine. The patient denies any bladder discomfort. At this point there is no need to reinsert a Penn catheter. We will continue to monitor PVR. If the amount of urine he retains increases we will consider placing another Penn catheter. Impression and plan of care have been directed as dictated by the signing physician. Kamilah Bullard nurse practitioner acting as scribe for signing physician. Kamilah Bullard [facility] Palliative Care/Urology Spectralink [phone] Email: [email or web address] The patient was examined and I concur with the above note, William Gay MD
[2022-09-26] MEDS: SENNOSIDES 8.6 MG TAB PO SCH (08:36)
[2022-09-26] MEDS: ENOXAPARIN 40 MG/0.4 ML SYRINGE SQ SCH (08:36)
[2022-09-26] MEDS: MIRTAZAPINE 15 MG TAB PO SCH (08:36)
[2022-09-26] MEDS: LACTULOSE 20 GM/30 ML CUP PO SCH ×2 (08:36→22:09)
[2022-09-26 09:17] LABS: Basophils # (A) 0.04 X 10*3/uL (0.00-0.10); Basophils % (A) 0.3 %; Eosinophils # (A) 0.12 X 10*3/uL (0.04-0.35); Eosinophils % (A) 0.9 %; HCT 30.8 % (39.6-50.0); Immature Grans, Automated 0.5 %; Lymphocytes # (A) 1.25 X 10*3/uL (0.90-5.00); Lymphocytes % (A) 9.8 %; MCH 23.8 pg (27.0-32.0); MCHC 29.2 g/dL (32.0-37.0); MCV 81.5 fL (80.0-97.0); Mean Platelet Volume 10.2 fL (9.5-12.2); Monocytes # (A) 1.75 X 10*3/uL (0.20-1.00); Monocytes % (A) 13.7 %; NRBC Per 100 WBC 0 /100 WBCS (0.0-0.0); Neutrophils # (A) 9.56 X 10*3/uL (1.80-7.70); Neutrophils % (A) 74.8 %; Platelet Count 617 X 10*3/uL (140-440); RBC 3.78 X 10*6/uL (4.40-5.60); RDW 21.1 % (11.5-14.5); WBC 12.78 X 10*3/uL (4.50-10.00)
[2022-09-26 09:47] LABS: African American GFR (CKD) 124.6 (60.0-200.0); Albumin 2.2 g/dL (3.8-4.9); Albumin/Globulin Ratio 0.77 (1.60-3.17); Anion Gap 9.7 mmol/L (10.00-18.00); BUN/Creat Ratio 6.63 Ratio (12.00-20.00); Blood Urea Nitrogen 3.9 mg/dL (9.0-27.0); C Reactive Protein 6.9 mg/dL (0.00-0.80); Calcium 7.8 mg/dL (8.7-10.3); Carbon Dioxide 17.9 mmol/L (20.0-27.5); Globulin 2.8 g/dL (1.6-3.3); Non-African American GFR(CKD) 107.5 (60.0-200.0); Potassium 3.3 mmol/L (3.5-5.5); Total Bilirubin 0.3 mg/dL (0.30-1.20)
--- NOTE | 2022-09-26 11:38 | P.PN ---
Subjective Progress Note Date: 09/26/22 CHIEF COMPLAINT: Weakness HISTORY OF PRESENT ILLNESS: Patient has a history of metastatic rectal cancer. Patient is lying in bed. He denies any abdominal pain. HOLDEN drain still purulent in color 15ml output. Ostomy is functioning. Still reports feeling weak and having poor oral intake. Denies any nausea or vomiting. Afebrile. WBC is 12.78 hemoglobin is 9 platelet 617 sodium 135 potassium 3.3 creatinine 0.6 PHYSICAL EXAM: VITAL SIGNS: Reviewed. GENERAL: Well-developed in no acute distress. HEENT: No sclera icterus. Extraocular movements grossly intact. Moist buccal mucosa. Head is atraumatic, normocephalic. ABDOMEN: Soft. Nondistended. Nontender. NEUROLOGIC: Alert and oriented. Cranial nerves II through XII grossly intact. ASSESSMENT: 1. Generalized weakness and poor oral intake 2. History of presacral abscess status post exploratory laparotomy with drainage of presacral abscess, partial colectomy with colostomy on 08/15/2022 3. History of metastatic rectal cancer with prior resection and partial resection of the liver PLAN: -No surgical intervention planned -Continue HOLDEN drain -Continue antibiotics Physician Manager Business Planning note has been reviewed by physician. Signing provider agrees with the documented findings, assessment, and plan of care. Objective - Vital Signs Vital signs: Vital Signs Temp 98.9 F 09/26/22 05:00 Pulse 95 09/26/22 05:00 Resp 16 09/26/22 05:00 BP 133/85 09/26/22 05:00 Pulse Ox 96 09/26/22 05:00 FiO2 Intake & Output 09/25/22 09/26/22 09/26/22 18:59 06:59 18:59 Intake Total 900 800 Output Total 375 1650 665 Balance 525 850 -665 Weight 56.699 kg Intake: Intake, IV Titration 900 800 Amount Sodium Chloride 0.9% 1, 900 750 000 ml @ 75 mls/hr IV . [id number] [facility] Rx#:[id number] metroNIDAZOLE-NS PMX 500 50 mg In Saline 1 100ml.bag @ 100 mls/hr IVPB Q8HR [facility] Rx#:[id number] Output: Drainage 15 Right 15 Urine 375 400 500 Straight 375 400 Post Void Residual 400 Stool 850 150 Other: Voiding Method Urinal Urinal Urinal # Voids 0 1 # Bowel Movements 0 - Labs CBC & Chem 7: 09/26/22 04:40 09/26/22 04:40 Labs: Abnormal Lab Results - Last 24 Hours (Table) 09/26/22 09/26/22 Range/Units 04:40 04:40 WBC 12.78 H (4.50-10.00) X 10*3/uL RBC 3.78 L (4.40-5.60) X 10*6/uL Hgb 9.0 L (13.0-17.0) g/dL Hct 30.8 L (39.6-50.0) % MCH 23.8 L (27.0-32.0) pg MCHC 29.2 L (32.0-37.0) g/dL RDW 21.1 H (11.5-14.5) % Plt Count 617 H (140-440) X 10*3/uL Immature Gran # 0.06 H (0.00-0.04) X 10*3/uL Neutrophils # 9.56 H (1.80-7.70) X 10*3/uL Monocytes # 1.75 H (0.20-1.00) X 10*3/uL Potassium 3.3 L (3.5-5.5) mmol/L Carbon Dioxide 17.9 L (20.0-27.5) mmol/L Anion Gap 9.70 L (10.00-18.00) mmol/L BUN 3.9 L (9.0-27.0) mg/dL BUN/Creatinine Ratio 6.63 L (12.00-20.00) Ratio Calcium 7.8 L (8.7-10.3) mg/dL AST 66 H (14-35) U/L Alkaline Phosphatase 549 H (41-126) U/L C-Reactive Protein 6.90 H (0.00-0.80) mg/dL Total Protein 5.0 L (6.2-8.2) g/dL Albumin 2.2 L (3.8-4.9) g/dL Albumin/Globulin Ratio 0.77 L (1.60-3.17) g/dL Microbiology - Last 24 Hours (Table) 09/22/22 12:07 Blood Culture - Preliminary Blood No Growth after 72 hours 09/22/22 12:04 Blood Culture - Preliminary Blood No Growth after 72 hours
--- NOTE | 2022-09-26 12:00 | P.PN ---
Subjective Progress Note Date: 09/26/22 Principal diagnosis: weakness Hospital Course: 62-year-old male with history of metastatic colon cancer presenting from [facility] for failure to thrive, poor appetite, generalized weakness, inability to ambulate. Patient has a Penn catheter in place after his recent bowel surgery. He also has a right HOLDEN drain in place for recent abscess. Per notes, He had fever at the facility. He denies any subjective fevers, chills, shortness of breath, chest pain, cough, abdominal pain. On admission, he had leukocytosis. Vital signs were otherwise unremarkable. Chest x-ray showed no acute process. Abdomen CT showed liver mets increased from prior, new right pleural effusion, abdominal ascites. Patient being treated for possible UTI. Oncology consulted. Infectious disease also consulted for possible other source of infection. Currently on IV antibiotics. Surgery consulted with regards to presacral drain. Urology consulted with regards to urinary retention, recommended to do a voiding trial when patient ambulatory. Penn catheter were discontinued and pat ient continues to have <400cc PVR. Urology still recommended no further replacement of Penn catheter. Patient agreeable to seeing hospice. Subjective: Patient seen and examined at bedside. No acute events overnight. He denies any significant chest pain, shortness of breath, abdominal pain. Denies any diarrhea, constipation, nausea, vomiting. His appetite improved but remains poor. His Penn catheter is now discontinued. Pertinent positives and negatives as discussed above, a complete review of systems was performed and all other systems are negative. Vitals Signs Reviewed. General: nontoxic, no distress, appears at stated age, cachectic Derm: warm, dry Head: atraumatic, normocephalic, symmetric Eyes: EOMI, no lid lag, anicteric sclera Mouth: no lip lesion, mucus membranes moist Cardiovascular: S1S2 reg, no murmur Lungs: CTA bilateral, no rhonchi, no rales , no accessory muscle use Abdominal: soft, nontender to palpation, no guarding, left ostomy, right HOLDEN drain with minimal brown colored drainage Ext: no gross muscle atrophy, no edema, no contractures Neuro: CN II-XI grossly intact, no focal neuro deficits Psych: Alert, oriented, appropriate affect Assessment and Plan: Sepsis likely secondary to UTI Penn catheter for chronic urinary retention -replaced this admission Leukocytosis - improving History of pelvic abscess, status post HOLDEN drain Hypovolemic hyponatremia -resolved Deconditioned Metastatic colon cancer status post resection, elevated CEA -IV fluids, now decreased, encourage oral intake -IV ceftriaxone and IV Flagyl -Urine culture growing skin and/or genital marzena, and blood cultures pending -Oncology and ID consult -Urology consulted for urinary retention, Penn discontinued -Surgery consult -will get hospice involved, patient agreeable to have conversation with them -PT/OT -Medications reviewed DVT ppx: Lovenox Code status: Full code Anticipated discharge place: [facility] Anticipated discharge time: Pending clinical course Objective - Vital Signs Vital signs: Vital Signs Temp 98.9 F 09/26/22 05:00 Pulse 95 09/26/22 05:00 Resp 16 09/26/22 05:00 BP 133/85 09/26/22 05:00 Pulse Ox 96 09/26/22 05:00 FiO2 Intake & Output 09/25/22 09/26/22 09/26/22 18:59 06:59 18:59 Intake Total 900 800 Output Total 375 1650 665 Balance 525 -850 -665 Weight 56.699 kg Intake: Intake, IV Titration 900 800 Amount Sodium Chloride 0.9% 1, 900 750 000 ml @ 75 mls/hr IV . [id number] [facility] Rx#:[id number] metroNIDAZOLE-NS PMX 500 50 mg In Saline 1 100ml.bag @ 100 mls/hr IVPB Q8HR [facility] Rx#:[id number] Output: Drainage 15 Right 15 Urine 375 400 500 Straight 375 400 Post Void Residual 400 Stool 850 150 Other: Voiding Method Urinal Urinal Urinal # Voids 0 1 # Bowel Movements 0 - Labs CBC & Chem 7: 09/26/22 04:40 09/26/22 04:40 Labs: Abnormal Lab Results - Last 24 Hours (Table) 09/26/22 09/26/22 Range/Units 04:40 04:40 WBC 12.78 H (4.50-10.00) X 10*3/uL RBC 3.78 L (4.40-5.60) X 10*6/uL Hgb 9.0 L (13.0-17.0) g/dL Hct 30.8 L (39.6-50.0) % MCH 23.8 L (27.0-32.0) pg MCHC 29.2 L (32.0-37.0) g/dL RDW 21.1 H (11.5-14.5) % Plt Count 617 H (140-440) X 10*3/uL Immature Gran # 0.06 H (0.00-0.04) X 10*3/uL Neutrophils # 9.56 H (1.80-7.70) X 10*3/uL Monocytes # 1.75 H (0.20-1.00) X 10*3/uL Potassium 3.3 L (3.5-5.5) mmol/L Carbon Dioxide 17.9 L (20.0-27.5) mmol/L Anion Gap 9.70 L (10.00-18.00) mmol/L BUN 3.9 L (9.0-27.0) mg/dL BUN/Creatinine Ratio 6.63 L (12.00-20.00) Ratio Calcium 7.8 L (8.7-10.3) mg/dL AST 66 H (14-35) U/L Alkaline Phosphatase 549 H (41-126) U/L C-Reactive Protein 6.90 H (0.00-0.80) mg/dL Total Protein 5.0 L (6.2-8.2) g/dL Albumin 2.2 L (3.8-4.9) g/dL Albumin/Globulin Ratio 0.77 L (1.60-3.17) g/dL Microbiology - Last 24 Hours (Table) 09/22/22 12:07 Blood Culture - Preliminary Blood No Growth after 72 hours 09/22/22 12:04 Blood Culture - Preliminary Blood No Growth after 72 hours
[2022-09-26] MEDS ORDERED: ONDANSETRON 4 MG/2 ML VIAL IVP PRN (13:48)
[2022-09-26] MEDS: TAMSULOSIN 0.4 MG CAP.ER.24H PO SCH (18:02)
--- NOTE | 2022-09-26 23:44 | P.PN ---
Subjective Progress Note Date: 09/26/22 Principal diagnosis: Leukocytosis and purulent HOLDEN drainage Patient is a 62-year-old male with a past medical history apparent for metastatic rectal cancer in this patient who was recently admitted to the hospital and did have a presacral abscess status post exploratory laparotomy drainage of the abscess patient did have a HOLDEN drain with persistent purulent drainage patient presented to hospital with weakness and decreased oral intake and also have elevated white count. On today's evaluation that is 09/26/2022 the patient continues to be afebrile, patient is breathing comfortably on room air patient denies having any chest pain shortness of breath or cough no abdominal pain or diarrhea, the patient is feeling slightly better Objective - Vital Signs Vital signs: Vital Signs Temp 99.3 F 09/26/22 14:12 Pulse 111 H 09/26/22 14:12 Resp 26 H 09/26/22 14:12 BP 123/86 09/26/22 14:12 Pulse Ox 96 09/26/22 14:12 FiO2 Intake & Output 09/25/22 09/26/22 09/26/22 18:59 06:59 18:59 Intake Total 900 800 Output Total 375 1650 665 Balance 525 850 -665 Weight 56.699 kg Intake: Intake, IV Titration 900 800 Amount Sodium Chloride 0.9% 1, 900 750 000 ml @ 75 mls/hr IV . [id number] [facility] Rx#:[id number] metroNIDAZOLE-NS PMX 500 50 mg In Saline 1 100ml.bag @ 100 mls/hr IVPB Q8HR [facility] Rx#:[id number] Output: Drainage 15 Right 15 Urine 375 400 500 Straight 375 400 Post Void Residual 400 Stool 850 150 Other: Voiding Method Urinal Urinal Urinal # Voids 0 1 # Bowel Movements 0 - Exam GENERAL DESCRIPTION: Middle-aged male lying in bed in no distress RESPIRATORY SYSTEM: Unlabored breathing , decreased breath sounds at bases HEART: S1 S2 regular rate and rhythm , ABDOMEN: Soft , no tenderness EXTREMITIES: No edema feet - Labs CBC & Chem 7: 09/26/22 04:40 09/26/22 04:40 Labs: Abnormal Lab Results - Last 24 Hours (Table) 09/26/22 09/26/22 Range/Units 04:40 04:40 WBC 12.78 H (4.50-10.00) X 10*3/uL RBC 3.78 L (4.40-5.60) X 10*6/uL Hgb 9.0 L (13.0-17.0) g/dL Hct 30.8 L (39.6-50.0) % MCH 23.8 L (27.0-32.0) pg MCHC 29.2 L (32.0-37.0) g/dL RDW 21.1 H (11.5-14.5) % Plt Count 617 H (140-440) X 10*3/uL Immature Gran # 0.06 H (0.00-0.04) X 10*3/uL Neutrophils # 9.56 H (1.80-7.70) X 10*3/uL Monocytes # 1.75 H (0.20-1.00) X 10*3/uL Potassium 3.3 L (3.5-5.5) mmol/L Carbon Dioxide 17.9 L (20.0-27.5) mmol/L Anion Gap 9.70 L (10.00-18.00) mmol/L BUN 3.9 L (9.0-27.0) mg/dL BUN/Creatinine Ratio 6.63 L (12.00-20.00) Ratio Calcium 7.8 L (8.7-10.3) mg/dL AST 66 H (14-35) U/L Alkaline Phosphatase 549 H (41-126) U/L C-Reactive Protein 6.90 H (0.00-0.80) mg/dL Total Protein 5.0 L (6.2-8.2) g/dL Albumin 2.2 L (3.8-4.9) g/dL Albumin/Globulin Ratio 0.77 L (1.60-3.17) g/dL Microbiology - Last 24 Hours (Table) 09/22/22 12:07 Blood Culture - Preliminary Blood No Growth after 96 hours 09/22/22 12:04 Blood Culture - Preliminary Blood No Growth after 96 hours Assessment and Plan (1) Leukocytosis Current Visit: Yes Status: Acute Code(s): D72.829 - ELEVATED WHITE BLOOD CELL COUNT, UNSPECIFIED SNOMED Code(s): 545508067 Plan: 1patient with history of presacral abscess in this patient who is status post laparotomy with partial colectomy and drainage of the abscess unfortunately no culture was done on last admission subsequently presented back to the hospital for decreased appetite weight loss and not feeling well he did have low-grade fever and elevated white count and did have persistent purulent drainage through the HOLDEN drain CT abdominal pelvis which was reviewed with radiologist and the HOLDEN drain is currently in the pelvic fluid collection suspicion for possible abscess 2patient seemed to have shown some clinical improvement in the white count is trending down, plan is to continue with Rocephin and Flagyl 2 weeks on discharge Time with Patient: Less than 30
[2022-09-27] MEDS: metroNIDAZOLE-NS PMX 500 MG in SALINE 1 100ML.BAG IVPB SCH ×3 (00:47→15:39)
[2022-09-27] MEDS: SODIUM CHLORIDE 0.9% 1,000 ML IV SCH (05:13)
[2022-09-27] MEDS: LACTULOSE 20 GM/30 ML CUP PO SCH ×2 (09:32→09:36)
[2022-09-27] MEDS: MIRTAZAPINE 15 MG TAB PO SCH (09:32)
[2022-09-27] MEDS: SENNOSIDES 8.6 MG TAB PO SCH (09:32)
[2022-09-27] MEDS: ENOXAPARIN 40 MG/0.4 ML SYRINGE SQ SCH (09:32)
[2022-09-27 11:43] VITALS: BP 123/83; PULSE 94; RESP 18; TEMP 98
--- NOTE | 2022-09-27 13:23 | P.DS ---
Providers Date of admission: 09/21/22 18:28 Attending physician: Flores Man DO Consults: 09/21/22 18:28 Consult Physician Urgent Consulting Provider: Francis Andrade Consult Reason/Comments: rectal cancer with mets Do you want consulting provider notified?: Yes 09/23/22 08:04 Consult Physician Routine Consulting Provider: Elizabeth Soto Consult Reason/Comments: sepsis, UTI, possible continued pelvic abscess, has a HOLDEN drain in place Do you want consulting provider notified?: Yes 09/24/22 10:51 Consult Physician Routine Consulting Provider: Ben Lindsey Consult Reason/Comments: Eval for removal of dias Do you want consulting provider notified?: Yes 09/24/22 10:52 Consult Physician Routine Consulting Provider: Moises Tucker Consult Reason/Comments: s/p surgery, prescaral abscess, pt cont to have HOLDEN drain Do you want consulting provider notified?: Yes Primary care physician: Stated None Hospital Course: Discharge Diagnosis: Sepsis Presacral abscess status post drainage catheter Metastatic colon cancer status post resection Deconditioning Urinary retention Hospital Course: 62-year-old male with history of metastatic colon cancer presenting [facility] for failure to thrive, poor appetite, generalized weakness, inability to ambulate. Patient has a Dias catheter in place after his recent bowel surgery. He also has a right HOLDEN drain in place for recent abscess. Per notes, He had fever at the facility. He denies any subjective fevers, chills, shortness of breath, chest pain, cough, abdominal pain. On admission, he had leukocytosis. Vital signs were otherwise unremarkable. Chest x-ray showed no acute process. Abdomen CT showed liver mets increased from prior, new right pleural effusion, abdominal ascites. Patient was admitted for possible UTI. Infectious disease also consulted for possible other source of infection. Surgery consulted with fredi trevino to presacral drain. Urology consulted with regards to urinary retention, recommended to do a voiding trial when patient ambulatory. Dias catheter were discontinued and patient continues to have <400cc PVR. General surgery recommended no management for his presacral drain. Infectious disease review computed tomography scan with radiology which showed the presacral drain was in the abscess and was draining appropriately. Patient's blood cultures were negative. Urine culture was also negative. Infectious disease recommended for 2 more weeks of IV Rocephin and Flagyl on discharge. Patient also met with hospice. Patient states that he would like to see if he gets stronger when he goes back to rehab. He states that if his condition continues to deteriorate then he will call hospice. Patient seen and examined at bedside.[] Vital signs reviewed and stable. General: [non toxic], [no distress], appears chronically debilitated Derm: [warm], [dry] Head: [atraumatic], [normocephalic], [symmetric] Eyes: [EOMI], [no lid lag], [anicteric sclera] Mouth: [no lip lesion], [mucus membranes moist] Cardiovascular: [S1S2 reg], [no murmur], [positive posterior tibial pulse bilateral], Lungs: [CTA bilateral], [no rhonchi, no rales] , [no accessory muscle use] Abdominal: [soft], [ nontender to palpation], [no guarding], [no appreciable organomegaly] HOLDEN drain with purulent fluid Ext: [no gross muscle atrophy], [no edema], [no contractures] Neuro: [ CN II-XI grossly intact], [no focal neuro deficits] Psych: [Alert], [oriented], [appropriate affect] A total of [33] minutes of time were spent preparing this complex discharge summary . Patient Condition at Discharge: Poor Plan - Discharge Summary Discharge Rx Participant: Yes New Discharge Prescriptions: New metroNIDAZOLE [Flagyl] 500 mg PO TID 14 Days tab cefTRIAXone [Rocephin] 2 gm IVPB Q24HR 14 Days each Continue Acetaminophen Tab [Tylenol] 650 mg PO Q6HR PRN tab PRN Reason: Mild Pain Or Fever > 100.5 Mirtazapine 7.5 mg PO DAILY Triad 1 applic TOPICAL BID oxyCODONE HCL/ACETAMINOPHEN [Percocet 10-325 mg] 1 tab PO Q4HR PRN 3 Days #18 tab PRN Reason: Pain Sennosides [Senokot] 17.2 mg PO DAILY Lactulose 20 gm PO BID Alfuzosin HCl [Alfuzosin HCl ER] 10 mg PO HS Discontinued Levofloxacin [Levaquin] 500 mg PO DAILY Discharge Medication List Acetaminophen Tab [Tylenol] 650 mg PO Q6HR PRN tab 08/08/22 [Rx] Mirtazapine 7.5 mg PO DAILY 08/14/22 [History] Triad 1 applic TOPICAL BID 08/14/22 [History] oxyCODONE HCL/ACETAMINOPHEN [Percocet 10-325 mg] 1 tab PO Q4HR PRN 3 Days #18 tab 08/23/22 [Rx] Alfuzosin HCl [Alfuzosin HCl ER] 10 mg PO HS 09/21/22 [History] Lactulose 20 gm PO BID 09/21/22 [History] Sennosides [Senokot] 17.2 mg PO DAILY 09/21/22 [History] cefTRIAXone [Rocephin] 2 gm IVPB Q24HR 14 Days each 09/27/22 [Rx] metroNIDAZOLE [Flagyl] 500 mg PO TID 14 Days tab 09/27/22 [Rx] Follow up Appointment(s)/Referral(s): None,Stated [Primary Care Provider] - 1-2 days Discharge Disposition: TRANSFER TO SNF/ECF
[2022-09-27] MEDS: TAMSULOSIN 0.4 MG CAP.ER.24H PO SCH (15:39)
--- NOTE | 2022-09-27 16:11 | P.PN ---
Subjective Progress Note Date: 09/27/22 CHIEF COMPLAINT: Weakness HISTORY OF PRESENT ILLNESS: Patient has a history of metastatic rectal cancer. Patient is lying in bed. He denies any abdominal pain. HOLDEN drain still purulent in color 10ml output. Ostomy is functioning. Still reports feeling weak and having poor oral intake. Denies any nausea or vomiting. Afebrile. Consult was placed by medicine service for hospice. Agree with hospice evaluation. Patient decided he wants to be discharged to rehab to see if he can get stronger before deciding on hospice. PHYSICAL EXAM: VITAL SIGNS: Reviewed. GENERAL: Well-developed in no acute distress. HEENT: No sclera icterus. Extraocular movements grossly intact. Moist buccal mucosa. Head is atraumatic, normocephalic. ABDOMEN: Soft. Nondistended. Nontender. NEUROLOGIC: Alert and oriented. Cranial nerves II through XII grossly intact. ASSESSMENT: 1. Generalized weakness and poor oral intake 2. History of presacral abscess status post exploratory laparotomy with drainage of presacral abscess, partial colectomy with colostomy on 08/15/2022 3. History of metastatic rectal cancer with prior resection and partial resection of the liver PLAN: -No surgical intervention planned -Continue HOLDEN drain -Continue antibiotics Physician Paper Deliverer note has been reviewed by physician. Signing provider agrees with the documented findings, assessment, and plan of care. Objective - Vital Signs Vital signs: Vital Signs Temp 98 F 09/27/22 11:18 Pulse 94 09/27/22 11:18 Resp 18 09/27/22 11:18 BP 123/83 09/27/22 11:18 Pulse Ox 96 09/27/22 11:18 FiO2 Intake & Output 09/26/22 09/27/22 09/27/22 18:59 06:59 18:59 Intake Total 1390 Output Total 915 1005 350 Balance -915 385 -350 Intake: Intake, IV Titration 850 Amount Sodium Chloride 0.9% 1, 750 000 ml @ 75 mls/hr IV . [id number] [facility] Rx#:[id number] metroNIDAZOLE-NS PMX 500 100 mg In Saline 1 100ml.bag @ 100 mls/hr IVPB Q8HR [facility] Rx#:[id number] Oral 540 Output: Drainage 15 10 Right 15 10 Urine 750 250 350 Post Void Residual 395 Stool 150 350 Other: Voiding Method Urinal Urinal Urinal # Voids 1 3 - Labs CBC & Chem 7: 09/26/22 04:40 09/26/22 04:40 Labs: Microbiology - Last 24 Hours (Table) 09/22/22 12:07 Blood Culture - Preliminary Blood No Growth after 120 hours 09/22/22 12:04 Blood Culture - Preliminary Blood No Growth after 120 hours
--- NOTE | 2022-09-27 18:21 | P.PN ---
Subjective Progress Note Date: 09/27/22 Principal diagnosis: weakness In f/u today pt reports That he is starting to feel better. He denies pain, fever, nausea. Output from HOLDEN drain Continues to decrease in volume, Definitely less foul odor. Penn catheter Removed, he is urinating on his own. Patient is ready to go to rehabilitation, and is motivated to do so. Objective - Vital Signs Vital signs: Vital Signs Temp 98 F 09/27/22 11:18 Pulse 94 09/27/22 11:18 Resp 18 09/27/22 11:18 BP 123/83 09/27/22 11:18 Pulse Ox 96 09/27/22 11:18 FiO2 Intake & Output 09/26/22 09/27/22 09/27/22 18:59 06:59 18:59 Intake Total 1390 Output Total 915 1005 350 Balance -915 385 -350 Intake: Intake, IV Titration 850 Amount Sodium Chloride 0.9% 1, 750 000 ml @ 75 mls/hr IV . [id number] [facility] Rx#:[id number] metroNIDAZOLE-NS PMX 500 100 mg In Saline 1 100ml.bag @ 100 mls/hr IVPB Q8HR [facility] Rx#:[id number] Oral 540 Output: Drainage 15 10 Right 15 10 Urine 750 250 350 Post Void Residual 395 Stool 150 350 Other: Voiding Method Urinal Urinal Urinal # Voids 1 3 - Constitutional General appearance: Present: cooperative, no acute distress, thin - EENT Eyes: Present: anicteric sclerae, EOMI ENT: Present: hearing grossly normal - Respiratory Details: Respirations even and unlabored - Gastrointestinal Gastrointestinal Comment(s): Liquid brown stool in ostomy, stoma is pink, HOLDEN drain has a scant amount of rivers colored fluid General gastrointestinal: Present: soft - Neurologic Neurologic: Present: CNII-XII intact - Musculoskeletal Musculoskeletal: Present: generalized weakness - Psychiatric Psychiatric: Present: A&O x's 3, appropriate affect, intact judgment & insight - Labs CBC & Chem 7: 09/26/22 04:40 09/26/22 04:40 Labs: Microbiology - Last 24 Hours (Table) 09/22/22 12:07 Blood Culture - Preliminary Blood No Growth after 120 hours 09/22/22 12:04 Blood Culture - Preliminary Blood No Growth after 120 hours Assessment and Plan (1) Weakness Current Visit: Yes Status: Acute Code(s): R53.1 - WEAKNESS SNOMED Code(s): 24255016 (2) Abscess, sacrum Current Visit: No Status: Acute Priority: High Code(s): M46.28 - OSTEOMYELITIS OF VERTEBRA, SACRAL AND SACROCOCCYGEAL REGION SNOMED Code(s): 102165675 (3) Rectal adenocarcinoma Current Visit: No Status: Chronic Priority: Medium Code(s): C20 - MALIGNANT NEOPLASM OF RECTUM SNOMED Code(s): 911788223 Plan: Weakness while in rehab. He was admitted, has been evaluated by urology, Penn catheter removed, patient is urinating on his own. Then seen by surgery as his HOLDEN drain status post abscess drainage was still present. Plan is to keep that in place for right now. Infectious disease has patient on antibiotics for persistent purulent/foul drainage in HOLDEN drain. The order has significantly improved, there is less drainage in the HOLDEN today. Pt is not a candidate for treatment for rectal adenocarcinoma until he is healed from abscess and adequately rehabilitated to a performance status that he would be able to tolerate treatment. He is reporting that he feels much better today. He is looking forward to rehabilitation and working on getting stronger. Plan is for follow-up with Medical Oncologist in 1 month to assess progress. It is reasonable for patient to try to rehabilitate as there are treatment options, if he is able to do so adequately. Patient verbalized understanding the plan. Appointment is in the chart for Dr. Andrade in 1 month. Attests: I have seen and examined pt, performed H&P, developed impression and plan of care. Discussed with dictator. Agree with documentation, dictated as a scribe.
--- NOTE | 2022-09-28 15:32 | CDI ---
Documentation Clarification Form Date: 09/25/2022 01:01:00 PM From: Geetha ReevesHuberMERVIN saba, CCDS Admit Date: 09/21/2022 06:28:00 PM Patient Name: Elliot Garrison Visit Number: [id number] Discharge Date: 09/27/2022 05:00:00 PM ATTENTION: The Clinical Documentation Specialists (CDI) and [facility] Coding Staff appreciate your assistance in clarifying documentation. Please respond to the clarification below the line at the bottom and electronically sign. The CDI & [facility] Coding staff will review the response and follow-up if needed. Please note: Queries are made part of the Legal Health Record. If you have any questions, please contact the author of this message via ITS. Dr. Lauri Robles: Per the Attending Physician Progress Notes the patient is diagnosed with SIRS, Possible UTI, Penn catheter for Chronic Urinary Retention: replaced this admission. Urology consulted. 09/24 Urology Consult Impression: Urine retention, secondary to bladder overdistention aggravated by bladder neck obstruction from prostate enlargement aggravated by her logic injury from Colectomy and perhaps tumor. Metastatic Rectal Cancer. Additional clarification regarding the etiology of the UTI is requested. History/Risk Factors per the 09/21 H/P: GERD, Colon Cancer status post chemotherapy, GI Bleed March 2020, Possible Lung Mets, C Diff infection 03/21/2022. Clinical Indicators Presented to the ED 09/21 with Weakness, has been at SNF for rehab and has had a poor appetite with significant weight loss, mild generalized abdominal pain, fever this morning. Admit with Malnutrition, Dehydration, Rectal Cancer with mets to the Liver, Hyponatremia and Leukocytosis. 09/22 UA: Cloudy, Specific Hope 1.036, 1+ Protein, Large Blood, Positive Nitrite, Large Esterase, RBC 173, WBC >182. 09/22 Urine Culture: final: negative. 09/23 UA: Clear, Trace Protein, Small Esterase, WBC 18 09/23 Urine Culture: final: negative. Treatment 09/21 Blood culture, IV Na Chl 1,000 mls @ 999 mls/hr q1H, IV Na Chl 1,000 mls @ 130 mls/hr q7H. 09/22: po Levaquin 500 mg Daily, IV Rocephin 50 mls @ 100 mls/hr q24H. 09/23: IV Flagyl 100 mls @ 100 mls/hr q8H. 09/24: po Flomax, IV Na Chl 1,000 mls @ 75 mls/hr q13H. Please clarify the etiology of the UTI, if known: [ ] UTI due to Penn catheter [ ] UTI not due to Penn catheter [ ] Other condition, please specify: UTI ruled out later [ ] Unable to determine (Template Last Revised: January 2021) MTDD
--- NOTE | 2022-09-29 19:50 | CDI ---
Documentation Clarification Form Date: 09/29/2022 07:31:02 PM From: Rubi Ross Phone: Admit Date: 09/21/2022 06:28:00 PM Patient Name: Elliot Garrison Visit Number: [id number] Discharge Date: 09/27/2022 05:00:00 PM ATTENTION: The Clinical Documentation Specialists (CDI) and [facility] Coding Staff appreciate your assistance in clarifying documentation. Please respond to the clarification below the line at the bottom and electronically sign. The CDI & [facility] Coding staff will review the response and follow-up if needed. Please note: Queries are made part of the Legal Health Record. If you have any questions, please contact the author of this message via ITS. Dr. Lisbeth Garcia Malnutrition is documented per ED Note which may lack sufficient clinical evidence/support in the medical record. Additional clarification is requested. 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, Sepsis, UTI, Rectal Cx w mets to liver, colostomy, FTT, ascites, dehydration, Deconditioning, BPH w Urinary retention, hyponatremia Clinical Indicators: Current BMI: 19.0 Insufficient energy intake: poor oral intake of solid foods and water Weight Loss: significant weight loss Treatment: Lab monitoring: low-grade fever and elevated white count; have persistent purulent drainage through the HOLDEN drain CT abdominal pelvis which was reviewed with radiologist and the HOLDEN drain is currently in the pelvic fluid collection suspicion for possible abscess 2patient seemed to have shown some clinical improvement in the white count is trending down, plan is to continue with Rocephin and Flagyl 2 weeks on discharge Is there an additional diagnosis that is clinically appropriate for this patient? [ ] Underweight [ ] Mild Protein-Calorie Malnutrition [X ] Moderate Protein-Calorie Malnutrition [ ] Other condition, please specify [ ] Unable to Determine (Template Last Revised: January 2021) MTDD
--- NOTE | 2022-10-04 22:10 | P.PN ---
Subjective Progress Note Date: 09/27/22 Principal diagnosis: Leukocytosis and purulent HOLDEN drainage Patient is a 62-year-old male with a past medical history apparent for metastatic rectal cancer in this patient who was recently admitted to the hospital and did have a presacral abscess status post exploratory laparotomy drainage of the abscess patient did have a HOLDEN drain with persistent purulent drainage patient presented to hospital with weakness and decreased oral intake and also have elevated white count. On today's evaluation that is 09/27/2022 the patient remains to be afebrile, patient is breathing comfortably on room air , the patient denies having any chest pain shortness of breath or cough no abdominal pain or diarrhea, no new symptoms Objective - Vital Signs Vital signs: Vital Signs Temp 98 F 09/27/22 11:18 Pulse 94 09/27/22 11:18 Resp 18 09/27/22 11:18 BP 123/83 09/27/22 11:18 Pulse Ox 96 09/27/22 11:18 FiO2 Intake & Output 09/26/22 09/27/22 09/27/22 18:59 06:59 18:59 Intake Total 1390 Output Total 915 1005 350 Balance -915 385 -350 Intake: Intake, IV Titration 850 Amount Sodium Chloride 0.9% 1, 750 000 ml @ 75 mls/hr IV . [id number] [facility] Rx#:[id number] metroNIDAZOLE-NS PMX 500 100 mg In Saline 1 100ml.bag @ 100 mls/hr IVPB Q8HR [facility] Rx#:[id number] Oral 540 Output: Drainage 15 10 Right 15 10 Urine 750 250 350 Post Void Residual 395 Stool 150 350 Other: Voiding Method Urinal Urinal Urinal # Voids 1 3 - Exam GENERAL DESCRIPTION: Middle-aged male lying in bed in no distress RESPIRATORY SYSTEM: Unlabored breathing , decreased breath sounds at bases HEART: S1 S2 regular rate and rhythm , ABDOMEN: Soft , no tenderness EXTREMITIES: No edema feet - Labs CBC & Chem 7: 09/26/22 04:40 09/26/22 04:40 Labs: Microbiology - Last 24 Hours (Table) 09/22/22 12:07 Blood Culture - Preliminary Blood No Growth after 120 hours 09/22/22 12:04 Blood Culture - Preliminary Blood No Growth after 120 hours Assessment and Plan (1) Leukocytosis Status: Acute Code(s): D72.829 - ELEVATED WHITE BLOOD CELL COUNT, UNSPECIFIED SNOMED Code(s): 404174418 Plan: 1patient with history of presacral abscess in this patient who is status post laparotomy with partial colectomy and drainage of the abscess unfortunately no culture was done on last admission subsequently presented back to the hospital for decreased appetite weight loss and not feeling well he did have low-grade fever and elevated white count and did have persistent purulent drainage through the HOLDEN drain CT abdominal pelvis which was reviewed with radiologist and the HOLDEN drain is currently in the pelvic fluid collection suspicion for possible abscess 2patient has shown clinical improvement and the patient the white count is trending down, patient to continue with Rocephin and Flagyl 2 weeks on discharge and close outpatient follow-up Time with Patient: Less than 30
== END 2022-09-27 17:00 | DRG 872 ==
LOC: EC 14:25 → 5NMEDONC 18:28
PROVIDERS: ADMIT Internal Medicine; ATTEND Internal Medicine
DX: A41.9 Sepsis, unspecified organism (principal); E44.0 Moderate protein-calorie malnutrition; R18.8 Other ascites; J90 Pleural effusion, not elsewhere classified; E87.1 Hypo-osmolality and hyponatremia; C20 Malignant neoplasm of rectum; C78.7 Secondary malignant neoplasm of liver and intrahepatic bile duct; Z68.1 Body mass index [BMI] 19.9 or less, adult; I45.2 Bifascicular block; M46.28 Osteomyelitis of vertebra, sacral and sacrococcygeal region; D63.0 Anemia in neoplastic disease; R62.7 Adult failure to thrive; E87.8 Other disorders of electrolyte and fluid balance, not elsewhere classified; E86.0 Dehydration; R68.81 Early satiety; N32.0 Bladder-neck obstruction; N40.1 Benign prostatic hyperplasia with lower urinary tract symptoms; R33.8 Other retention of urine; G89.29 Other chronic pain; E86.1 Hypovolemia; R53.81 Other malaise; R97.0 Elevated carcinoembryonic antigen [CEA]; Z28.310 Unvaccinated for COVID-19; Z93.3 Colostomy status; Z95.2 Presence of prosthetic heart valve; Z88.2 Allergy status to sulfonamides; Z90.49 Acquired absence of other specified parts of digestive tract
CPT/HCPCS: 36415; 71046; 74177; 80048; 80053; 81001; 82378; 83605; 83735; 83880; 84484; 85025; 85610; 85730; 86140; 87040; 87086; 93005; 99285

== ENCOUNTER 2022-10-10 00:53 | Observation (INO) | payer MEDICARE, OTHER ==
[2022-10-10] MEDS ORDERED: SODIUM CHLORIDE 0.9% 1,000 ML IV STA (01:17)
[2022-10-10 01:47] LABS: Anisocytosis Moderate; Basophils % (A) 0 %; Eosinophils % (A) 0 %; HCT 32.5 % (39.0-53.0); HGB 9.2 gm/dL (13.0-17.5); Hypochromasia Marked; Lymphocytes # (A) 0.9 k/uL (1.0-4.8); Lymphocytes % (A) 7 %; MCH 24.3 pg (25.0-35.0); MCHC 28.4 g/dL (31.0-37.0); MCV 85.6 fL (80.0-100.0); Mean Platelet Volume 10.4; Monocytes # (A) 0.7 k/uL (0-1.0); Monocytes % (A) 6 %; Neutrophils # (A) 10.7 k/uL (1.3-7.7); Neutrophils % (A) 85 %; Platelet Count 419 k/uL (150-450); RDW 20.2 % (11.5-15.5); WBC 12.6 k/uL (3.8-10.6)
[2022-10-10 02:11] LABS: INR 1.7 (<1.2); Partial Thromboplastin Time 30.4 sec (22.0-30.0); Prothrombin Time 16.6 sec (9.0-12.0)
[2022-10-10] MEDS ORDERED: fentaNYL (PF) 50 MCG/ML 2 ML AMP IVP STA (02:34)
[2022-10-10 03:04] LABS: ALT 16 U/L (4-49); AST 157 U/L (17-59); African American GFR (CKD) >90 (>60 ml/min/1.73 sqM); Albumin 2.3 g/dL (3.5-5.0); Alkaline Phosphatase 822 U/L (38-126); Anion Gap 4 mmol/L; Blood Urea Nitrogen 24 mg/dL (9-20); Calcium 7.5 mg/dL (8.4-10.2); Carbon Dioxide 25 mmol/L (22-30); Chloride 104 mmol/L (98-107); Glucose 81 mg/dL (74-99); Non-African American GFR(CKD) >90 (>60 ml/min/1.73 sqM); Potassium 4.4 mmol/L (3.5-5.1); Sodium 133 mmol/L (137-145); Total Protein 5.2 g/dL (6.3-8.2)
--- NOTE | 2022-10-10 03:43 | XR ---
EXAMINATION TYPE: XR chest 2V DATE OF EXAM: 10/10/2022 COMPARISON: 09/21/2022 HISTORY: Short of breath TECHNIQUE: FINDINGS: There is blunting right costophrenic angle. Heart size is normal. There are sternal wires. There is right centimeters catheter with tip in the superior vena cava. There are chest leads. IMPRESSION: There is moderate right pleural effusion and probably also some right lower lobe infiltra te which are new compared to the old exam. No heart failure seen.
[2022-10-10] MEDS ORDERED: NALOXONE 0.4 MG/ML 1 ML VIAL IV PRN (03:50)
--- NOTE | 2022-10-10 03:50 | ED ---
SOB HPI - General Chief Complaint: Shortness of Breath Stated Complaint: Sepsis Time Seen by Provider: 10/10/22 01:05 Source: EMS Mode of arrival: EMS - History of Present Illness Initial Comments: CC 2-year-old male with past nuchal history of colon cancer metastatic to the liver, presacral abscess with HOLDEN drain who presents to the emergency department from [facility]. He was recently admitted to the hospital for failure to thrive, poor appetite and general weakness. He was discharged back to the facility on Rocephin and Flagyl for concern of continued pelvic abscess. Patient continues to have a slow decline. Staff at the facility obtained the patient's vitals today and found that the patient was hypoxic with oxygenation of 87% on room air. He normally does not wear oxygen. He was placed on supplemental with improvement in his symptoms. Patient is extremely fatigued and therefore cannot provide much history. He admits to generalized pain. No chest pain. Denies fevers, chills or cough. HPI is limited - Related Data Home Medications Medication Instructions Recorded Confirmed Mirtazapine 7.5 mg PO DAILY@0900 08/14/22 10/11/22 Alfuzosin HCl [Alfuzosin HCl ER] 10 mg PO HS@2100 09/21/22 10/11/22 Lactulose 20 gm PO BID@0900,2100 09/21/22 10/11/22 Sennosides [Senokot] 17.2 mg PO DAILY@0900 09/21/22 10/11/22 Lactose-Reduced Food [Ensure Plus] 1 can PO BID@0900,1700 10/10/22 10/11/22 Ondansetron [Zofran] 4 mg PO Q6H PRN 10/10/22 10/11/22 Previous Rx's Medication Instructions Recorded Acetaminophen Tab [Tylenol] 650 mg PO Q6HR PRN tab 08/08/22 oxyCODONE HCL/ACETAMINOPHEN 1 tab PO Q4HR PRN 3 Days #18 tab 08/23/22 [Percocet 10-325 mg] cefTRIAXone [Rocephin] 2 gm IVPB Q24HR 14 Days each 09/27/22 metroNIDAZOLE [Flagyl] 500 mg PO TID 14 Days tab 09/27/22 Allergies Allergy/AdvReac Type Severity Reaction Status Date / Time Sulfa (Sulfonamide Allergy Anaphylaxis Verified 10/10/22 07:59 Antibiotics) Review of Systems ROS Statement: Those systems with pertinent positive or pertinent negative responses have been documented in the HPI. ROS Other: All systems not noted in ROS Statement are negative. Past Medical History Past Medical History: Cancer, GERD/Reflux, Prostate Disorder Additional Past Medical History / Comment(s): colon cancer-LAST CHEMO ON 07/14/22. GI BLEED MARCH 2020 possible lung Mets History of Any Multi-Drug Resistant Organisms: C-DIFF Date of last positivie culture/infection: 03/21/2022 MDRO Source:: stool Past Surgical History: Bowel Resection, Cardiac Valve Replacement Additional Past Surgical History / Comment(s): liver/rectal colon cancer,. COLONOSCOPY. colostomy reversal January 2022, removed section of liver in 2018 Past Anesthesia/Blood Transfusion Reactions: No Reported Reaction Past Psychological History: No Psychological Hx Reported Smoking Status: Never smoker Past Alcohol Use History: None Reported Past Drug Use History: None Reported - Past Family History Father Family Medical History: Cancer Mother Family Medical History: Osteoarthritis (OA) General Exam Limitations: altered mental status General appearance: lethargic, cachectic Head exam: Present: atraumatic, normocephalic, normal inspection Eye exam: Present: normal appearance, PERRL, EOMI. Absent: scleral icterus, conjunctival injection, periorbital swelling ENT exam: Present: mucous membranes dry Neck exam: Present: normal inspection. Absent: tenderness, meningismus, l ymphadenopathy Respiratory exam: Present: rales, accessory muscle use, decreased breath sounds Cardiovascular Exam: Present: normal rhythm, tachycardia GI/Abdominal exam: Present: soft, normal bowel sounds. Absent: distended, tenderness, guarding, rebound, rigid Neurological exam: Present: alert Psychiatric exam: Present: flat affect Course Vital Signs 10/10/22 10/10/22 10/10/22 00:58 01:05 02:04 Temperature 98.4 F Pulse Rate 120 H 116 H 106 H Respiratory 22 22 14 Rate Blood Pressure 96/77 110/80 O2 Sat by Pulse 94 L 95 98 Oximetry 10/10/22 10/10/22 10/10/22 03:12 06:37 09:38 Temperature 98.9 F Pulse Rate 107 H 105 H 108 H Respiratory 18 18 16 Rate Blood Pressure 103/79 109/88 110/70 O2 Sat by Pulse 97 98 98 Oximetry 10/10/22 10/10/22 16:00 17:00 Temperature Pulse Rate 105 H 105 H Respiratory 16 16 Rate Blood Pressure 109/82 98/64 O2 Sat by Pulse 97 97 Oximetry Medical Decision Making - Medical Decision Making Upon arrival patient was placed into room 5. A thorough history and physical exam was performed. IV access was established and laboratory studies are conducted. I did perform an occult test as the patient does have dark output in his ostomy. He was given 50 mg of fentanyl for pain control. Chest x-ray was performed at our facility. Laboratory studies are remarkable for white count of 12.6. INR 1.7. He is fecal occult positive. Covid and influenza are not detected. Chest x-ray demonstrates a right pleural effusion. I did recommend admission for which the patient was agreeable. Spoke with Dr. Elliott was agreeable to admit the patient. Pulmonology will be placed on consult - Lab Data Result diagrams: 10/11/22 06:36 10/11/22 06:36 Lab Results 10/10/22 10/10/22 10/10/22 Range/Units 01:26 01:26 01:26 WBC 12.6 H (3.8-10.6) k/uL RBC 3.80 L (4.30-5.90) m/uL Hgb 9.2 L (13.0-17.5) gm/dL Hct 32.5 L (39.0-53.0) % MCV 85.6 (80.0-100.0) fL MCH 24.3 L (25.0-35.0) pg MCHC 28.4 L (31.0-37.0) g/dL RDW 20.2 H (11.5-15.5) % Plt Count 419 (150-450) k/uL MPV 10.4 Neutrophils % 85 % Lymphocytes % 7 % Monocytes % 6 % Eosinophils % 0 % Basophils % 0 % Neutrophils # 10.7 H (1.3-7.7) k/uL Lymphocytes # 0.9 L (1.0-4.8) k/uL Monocytes # 0.7 (0-1.0) k/uL Eosinophils # 0.0 (0-0.7) k/uL Basophils # 0.0 (0-0.2) k/uL Hypochromasia Marked Anisocytosis Moderate PT 16.6 H (9.0-12.0) sec INR 1.7 H (<1.2) APTT 30.4 H (22.0-30.0) sec Sodium (137-145) mmol/L Potassium (3.5-5.1) mmol/L Chloride (98-107) mmol/L Carbon Dioxide (22-30) mmol/L Anion Gap mmol/L BUN (9-20) mg/dL Creatinine (0.66-1.25) mg/dL Est GFR (CKD-EPI)AfAm (>60 ml/min/1.73 sqM) Est GFR (CKD-EPI)NonAf (>60 ml/min/1.73 sqM) Glucose (74-99) mg/dL Plasma Lactic Acid Han (0.7-2.0) mmol/L Calcium (8.4-10.2) mg/dL Magnesium (1.6-2.3) mg/dL Total Bilirubin (0.2-1.3) mg/dL AST (17-59) U/L ALT (4-49) U/L Alkaline Phosphatase (38-126) U/L Troponin I (0.000-0.034) ng/mL NT-Pro-B Natriuret Pep pg/mL Total Protein (6.3-8.2) g/dL Albumin (3.5-5.0) g/dL Procalcitonin (0.02-0.09) ng/mL Stool Occult Blood Positive (Negative) Coronavirus (PCR) (Not Detectd) Influenza Type A RNA (Not Detectd) Influenza Type B (PCR) (Not Detectd) 10/10/22 10/10/22 10/10/22 Range/Units 01:26 01:26 01:26 WBC (3.8-10.6) k/uL RBC (4.30-5.90) m/uL Hgb (13.0-17.5) gm/dL Hct (39.0-53.0) % MCV (80.0-100.0) fL MCH (25.0-35.0) pg MCHC (31.0-37.0) g/dL RDW (11.5-15.5) % Plt Count (150-450) k/uL MPV Neutrophils % % Lymphocytes % % Monocytes % % Eosinophils % % Basophils % % Neutrophils # (1.3-7.7) k/uL Lymphocytes # (1.0-4.8) k/uL Monocytes # (0-1.0) k/uL Eosinophils # (0-0.7) k/uL Basophils # (0-0.2) k/uL Hypochromasia Anisocytosis PT (9.0-12.0) sec INR (<1.2) APTT (22.0-30.0) sec Sodium (137-145) mmol/L Potassium (3.5-5.1) mmol/L Chloride (98-107) mmol/L Carbon Dioxide (22-30) mmol/L Anion Gap mmol/L BUN (9-20) mg/dL Creatinine (0.66-1.25) mg/dL Est GFR (CKD-EPI)AfAm (>60 ml/min/1.73 sqM) Est GFR (CKD-EPI)NonAf (>60 ml/min/1.73 sqM) Glucose (74-99) mg/dL Plasma Lactic Acid Han 1.8 (0.7-2.0) mmol/L Calcium (8.4-10.2) mg/dL Magnesium (1.6-2.3) mg/dL Total Bilirubin (0.2-1.3) mg/dL AST (17-59) U/L ALT (4-49) U/L Alkaline Phosphatase (38-126) U/L Troponin I <0.012 (0.000-0.034) ng/mL NT-Pro-B Natriuret Pep 491 pg/mL Total Protein (6.3-8.2) g/dL Albumin (3.5-5.0) g/dL Procalcitonin (0.02-0.09) ng/mL Stool Occult Blood (Negative) Coronavirus (PCR) (Not Detectd) Influenza Type A RNA (Not Detectd) Influenza Type B (PCR) (Not Detectd) 10/10/22 10/10/22 10/10/22 Range/Units 01:26 02:46 03:12 WBC (3.8-10.6) k/uL RBC (4.30-5.90) m/uL Hgb (13.0-17.5) gm/dL Hct (39.0-53.0) % MCV (80.0-100.0) fL MCH (25.0-35.0) pg MCHC (31.0-37.0) g/dL RDW (11.5-15.5) % Plt Count (150-450) k/uL MPV Neutrophils % % Lymphocytes % % Monocytes % % Eosinophils % % Basophils % % Neutrophils # (1.3-7.7) k/uL Lymphocytes # (1.0-4.8) k/uL Monocytes # (0-1.0) k/uL Eosinophils # (0-0.7) k/uL Basophils # (0-0.2) k/uL Hypochromasia Anisocytosis PT (9.0-12.0) sec INR (<1.2) APTT (22.0-30.0) sec Sodium 133 L (137-145) mmol/L Potassium 4.4 (3.5-5.1) mmol/L Chloride 104 (98-107) mmol/L Carbon Dioxide 25 (22-30) mmol/L Anion Gap 4 mmol/L BUN 24 H (9-20) mg/dL Creatinine 0.66 (0.66-1.25) mg/dL Est GFR (CKD-EPI)AfAm >90 (>60 ml/min/1.73 sqM) Est GFR (CKD-EPI)NonAf >90 (>60 ml/min/1.73 sqM) Glucose 81 (74-99) mg/dL Plasma Lactic Acid Han (0.7-2.0) mmol/L Calcium 7.5 L (8.4-10.2) mg/dL Magnesium 2.0 (1.6-2.3) mg/dL Total Bilirubin 1.0 (0.2-1.3) mg/dL AST 157 H (17-59) U/L ALT 16 (4-49) U/L Alkaline Phosphatase 822 H (38-126) U/L Troponin I (0.000-0.034) ng/mL NT-Pro-B Natriuret Pep pg/mL Total Protein 5.2 L (6.3-8.2) g/dL Albumin 2.3 L (3.5-5.0) g/dL Procalcitonin 1.03 H (0.02-0.09) ng/mL Stool Occult Blood (Negative) Coronavirus (PCR) (Not Detectd) Influenza Type A RNA Not Detected (Not Detectd) Influenza Type B (PCR) Not Detected (Not Detectd) 10/10/22 Range/Units 03:12 WBC (3.8-10.6) k/uL RBC (4.30-5.90) m/uL Hgb (13.0-17.5) gm/dL Hct (39.0-53.0) % MCV (80.0-100.0) fL MCH (25.0-35.0) pg MCHC (31.0-37.0) g/dL RDW (11.5-15.5) % Plt Count (150-450) k/uL MPV Neutrophils % % Lymphocytes % % Monocytes % % Eosinophils % % Basophils % % Neutrophils # (1.3-7.7) k/uL Lymphocytes # (1.0-4.8) k/uL Monocytes # (0-1.0) k/uL Eosinophils # (0-0.7) k/uL Basophils # (0-0.2) k/uL Hypochromasia Anisocytosis PT (9.0-12.0) sec INR (<1.2) APTT (22.0-30.0) sec Sodium (137-145) mmol/L Potassium (3.5-5.1) mmol/L Chloride (98-107) mmol/L Carbon Dioxide (22-30) mmol/L Anion Gap mmol/L BUN (9-20) mg/dL Creatinine (0.66-1.25) mg/dL Est GFR (CKD-EPI)AfAm (>60 ml/min/1.73 sqM) Est GFR (CKD-EPI)NonAf (>60 ml/min/1.73 sqM) Glucose (74-99) mg/dL Plasma Lactic Acid Han (0.7-2.0) mmol/L Calcium (8.4-10.2) mg/dL Magnesium (1.6-2.3) mg/dL Total Bilirubin (0.2-1.3) mg/dL AST (17-59) U/L ALT (4-49) U/L Alkaline Phosphatase (38-126) U/L Troponin I (0.000-0.034) ng/mL NT-Pro-B Natriuret Pep pg/mL Total Protein (6.3-8.2) g/dL Albumin (3.5-5.0) g/dL Procalcitonin (0.02-0.09) ng/mL Stool Occult Blood (Negative) Coronavirus (PCR) Not Detected (Not Detectd) Influenza Type A RNA (Not Detectd) Influenza Type B (PCR) (Not Detectd) - EKG Data EKG Comments: EKG demonstrates possible a flutter with a rate of 116. QRS 138. QTC of 448. No acute ST segment elevation. Right bundle branch block. EKG interpreted by myself Disposition Clinical Impression: Hypoxia, Pleural effusion, Rectal adenocarcinoma Disposition: ADMITTED IP TO THIS HOSP Condition: Stable Is patient prescribed a controlled substance at d/c from ED?: No Time of Disposition: 03:50 Decision to Admit Reason: Admit from EC Decision Date: 10/10/22 Decision Time: 03:50
[2022-10-10] MEDS ORDERED: ACETAMINOPHEN TAB 325 MG TAB PO PRN (04:00)
[2022-10-10] MEDS ORDERED: cefTRIAXone IN SWFI 1,000 MG/10 ML SYRINGE IVP ONE (04:30)
[2022-10-10] MEDS: SODIUM CHLORIDE 0.9% 1,000 ML IV SCH ×3 (04:41→22:49)
[2022-10-10] MEDS: metroNIDAZOLE 500 MG TAB PO SCH ×4 (04:55→22:18)
--- NOTE | 2022-10-10 05:14 | P.HPIM ---
History of Present Illness H&P Date: 10/10/22 Chief Complaint: hypoxemia 62 year old male with metastatic colon cancer patient has been hospitalized multiple times over the past 1-2 months , with complaints related to his metastatic colon cancer. he had bowel resection and presacral abscess with drain placement in his RLQ, he also has a colostomy in his LLQ. he was hospitalized 10 days ago for fever, abd pain , and failure to thrive. patient seems to have poor insight about the severity of his cancer. patient had a meeting with hospice and would like to continue medical management at this time. he was discharged with 2 week worth of antibiotics per ID and surgery recommendations. his blood and urine cultures were both negative. patient is a resident of [facility] , he was sent in here for hypoxemia , patient does report some difficulty breathing , he was found to be hypoxic upon presentation , he does not use home oxyge, he reports some cough non productive , denies any chest pain, no fever, but positive chills. reports some chronic abd pain unchanged from before, occasional dark colostomy output. workup in the ED , CXR showed right pleural effusion which was noted on his CT abd done earlier this month at that time the CT also showed moderate abd ascites and new increase in size of liver lesions. blood work showed elevated WBC which is trending down overall, no fever noted in the ED, Hgb stable , elevated liver enzymes, and negative acute respiratory viral panel. occult blood test on his colostomy output is positive (unchanged from before) patient being admitted for new onset hypoxemia requiring supplemental oxygen , CXR showing possible infilterates right lower lobe along with possibly progressive right pleural effusion compared to prior CT done 2 weeks ago Review of Systems Pertinent positives as noted in HPI. All other systems were reviewed and are negative Past Medical History Past Medical History: Cancer, GERD/Reflux, Prostate Disorder Additional Past Medical History / Comment(s): colon cancer-LAST CHEMO ON 07/14/22. GI BLEED MARCH 2020 possible lung Mets History of Any Multi-Drug Resistant Organisms: C-DIFF Date of last positivie culture/infection: 03/21/2022 MDRO Source:: stool Past Surgical History: Bowel Resection, Cardiac Valve Replacement Additional Past Surgical History / Comment(s): liver/rectal colon cancer,. COLONOSCOPY. colostomy reversal January 2022, removed section of liver in 2018 Past Anesthesia/Blood Transfusion Reactions: No Reported Reaction Past Psychological History: No Psychological Hx Reported Smoking Status: Never smoker Past Alcohol Use History: None Reported Past Drug Use History: None Reported - Past Family History Father Family Medical History: Cancer Mother Family Medical History: Osteoarthritis (OA) Medications and Allergies Home Medications Medication Instructions Recorded Confirmed Type Acetaminophen Tab [Tylenol] 650 mg PO Q6HR PRN tab 08/08/22 09/21/22 Rx Mirtazapine 7.5 mg PO DAILY 08/14/22 09/21/22 History Triad 1 applic TOPICAL BID 08/14/22 09/21/22 History oxyCODONE HCL/ACETAMINOPHEN 1 tab PO Q4HR PRN 3 Days #18 tab 08/23/22 09/21/22 Rx [Percocet 10-325 mg] Alfuzosin HCl [Alfuzosin HCl ER] 10 mg PO HS 09/21/22 09/21/22 History Lactulose 20 gm PO BID 09/21/22 09/21/22 History Sennosides [Senokot] 17.2 mg PO DAILY 09/21/22 09/21/22 History cefTRIAXone [Rocephin] 2 gm IVPB Q24HR 14 Days each 09/27/22 Rx metroNIDAZOLE [Flagyl] 500 mg PO TID 14 Days tab 09/27/22 Rx Allergies Allergy/AdvReac Type Severity Reaction Status Date / Time Sulfa (Sulfonamide Allergy Anaphylaxis Verified 09/21/22 15:15 Antibiotics) Physical Exam Vitals: Vital Signs Temp Pulse Resp BP Pulse Ox 10/10/22 03:12 98.9 F 107 H 18 103/79 97 10/10/22 02:04 106 H 14 110/80 98 10/10/22 01:05 116 H 22 95 10/10/22 00:58 98.4 F 120 H 22 96/77 94 L Intake and Output 10/09/22 10/09/22 10/10/22 14:59 22:59 06:59 Other: Weight 61.235 kg Constitutional: No acute distress, ill looking, cachectic Eyes: Anicteric sclerae, moist conjunctiva, Pupils equal round reactive to light ENMT: NC/AT Oropharynx clear, no erythema, or exudates Neck: Supple, no masses, or JVD No carotid bruits No thyromegaly Lungs: good breath sounds bilaterally no rales or wheezing Normal respiratory effort, no accessory muscle use Cardiovascular: Heart regular in rate and rhythm, No murmurs, gallops, or rubs trace bilateral leg peripheral edema Abdominal: Soft, functional colostomy with dark fecal material , RLQ drain in place. disomfort to deep plapation , no guarding, rebound or rigidity Abdomen moving with respiration Normoactive bowel sounds No palpable mass Skin: right mediport in place, no surrounding erythema or induration , otherwise Normal temperature, tone, texture, turgor Extremities: No digital cyanosis No clubbing Pedal pulses intact and symmetrical Radial pulses intact and symmetrical No calf tenderness to palpation Psychiatric: Alert and oriented to person, place, time Neuro Muscles Strength 4/5 in all 4 extremities Sensation to light touch grossly present throughout Cranial nerves II-XII grossly intact Lymphatics: no palpable cervical or supraclavicular , lymph nodes Results CBC & Chem 7: 10/10/22 01:26 10/10/22 02:46 Labs: Abnormal Lab Results - Last 24 Hours (Table) 10/10/22 10/10/22 10/10/22 Range/Units 01:26 01:26 02:46 WBC 12.6 H (3.8-10.6) k/uL RBC 3.80 L (4.30-5.90) m/uL Hgb 9.2 L (13.0-17.5) gm/dL Hct 32.5 L (39.0-53.0) % MCH 24.3 L (25.0-35.0) pg MCHC 28.4 L (31.0-37.0) g/dL RDW 20.2 H (11.5-15.5) % Neutrophils # 10.7 H (1.3-7.7) k/uL Lymphocytes # 0.9 L (1.0-4.8) k/uL PT 16.6 H (9.0-12.0) sec INR 1.7 H (<1.2) APTT 30.4 H (22.0-30.0) sec Sodium 133 L (137-145) mmol/L BUN 24 H (9-20) mg/dL Calcium 7.5 L (8.4-10.2) mg/dL AST 157 H (17-59) U/L Alkaline Phosphatase 822 H (38-126) U/L Total Protein 5.2 L (6.3-8.2) g/dL Albumin 2.3 L (3.5-5.0) g/dL Assessment and Plan Assessment: acute hypoxic respiratory failure possible sepsis secondary to possible pneumonia , vs generalized deconditioning due to underlying metastatic cancer CXR showing right lower lobe infilterates, and right pleural effusion which was noted on his CT abd 2 weeks ago , possibly progressing follow up cultures rocephine and azithro continue one more day of flagyl to finish his 2 weeks course recommended upon discharge last hospital stay General surgery consult for follow up , known to doc pulmonary consult tylenol for fever IVF hydration with normal saline monitor vital signs f/u procalcitonin metastatic colon cancer elevated liver enzymes secondary to metastatic colon cancer continue to monitor supportive care patient declined hospice during last hospital stay chronic anemia Hgb stable continue to monitor PPI daily occult blood test positive , unchanged from before DVT PPx heparin sc tid full code
[2022-10-10] MEDS: oxyCODONE-APAP 10-325MG 1 EACH TAB PO PRN ×3 (06:04→22:19)
[2022-10-10 06:22] LABS: Appearance,Urine Clear (Clear); Bacteria,Urine Rare /hpf; Bilirubin,Urine 1+ (Negative); Blood,Urine Negative (Negative); Color,Urine Dark Brown; Glucose,Urine (UA) Negative (Negative); Hyaline Casts,Urine 5 /lpf (0-2); Ketones,Urine 2+ (Negative); Leukocyte Esterase,Urine Trace (Negative); Mucus,Urine Many /hpf; Nitrite,Urine Negative (Negative); Protein,Urine 2+ (Negative); RBC,Urine 5 /hpf (0-5); Specific Gravity,Urine 1.032 (1.001-1.035); Squamous Epithelial Cell,Urine <1 /hpf (0-4); Urobilinogen,Urine <2.0 mg/dL (<2.0); WBC,Urine 3 /hpf (0-5)
[2022-10-10] MEDS ORDERED: PANTOPRAZOLE 40 MG TABLET PO SCH (07:30)
[2022-10-10] MEDS ORDERED: HEPARIN SODIUM,PORCINE/PF 5,000 UNIT/0.5 ML SYRINGE SQ SCH (08:00)
[2022-10-10] MEDS: AZITHROMYCIN 500 MG TAB PO SCH (08:28)
[2022-10-10] MEDS ORDERED: cefTRIAXone 2 GM VIAL IVPB SCH (09:00)
[2022-10-10] MEDS: METOPROLOL TARTRATE 12.5 MG TAB PO SCH ×2 (09:39→22:18)
--- NOTE | 2022-10-10 09:56 | US ---
EXAMINATION TYPE: US chest DATE OF EXAM: 10/10/2022 COMPARISON: NONE CLINICAL HISTORY: Markings for thoracentesis by pulmonary staff. TECHNIQUE: Targeted ultrasound of the posterior lower bilateral hemithoraces EXAM MEASUREMENTS: Right Pleural Effusion pocket size: 5.7 cm Right skin surface to fluid distance: 2.3 cm Left Pleural Effusion pocket size: Not large enough to measure Right side marked for possible thoracentesis outside the dept. Pulmonologists are able to review the images in the patient?s EMR. IMPRESSIONS: As above
--- NOTE | 2022-10-10 10:43 | P.CRDCN ---
History of Present Illness History of present illness: HISTORY OF PRESENTING ILLNESS This is a pleasant 62-year-old male past medical history significant for infection in January 2021 requiring open heart surgery and aortic valve replacement, metastatic colon cancer to liver s/p chemotherapy, presacral abscess s/p drainage 08/2022 , colostomy reversal January 2022, portion of liver resection in 2019. He followed up with a cardioloigist at [facility] in [place] after his surgery but does not currently see a chief operations officer. We have been asked to see in consultation for tachycardia. Patient presents to the ER with complaints of shortness of breath and hypoxia. Patient is currently at a rehab facility, the nurse checked on the patient's vital signs and was found to be hypoxic with oxygen saturations of 88% on room air. He underwent a chest x-ray that morning at [facility] on the leg. The report revealed a moderate right effusion with diffuse right airspace disease. Left lung is clear. He presented to the emergency department for further evaluation. He denies any chest pain, palpitations, lightheadedness, dizziness, nausea or vomiting. Family at bedside, states that in January 2021 he was in [place] visiting, he had acute onset weakness, fatigue. He was admitted. He ended up undergoing open heart surgery and state that they found that his aortic valve needed to be replaced. He is unsure of the details. He denies any history of CAD, CABG or PCI surgery, Stroke, or Diabetes. DIAGNOSTICS * EKG reveals atrial tachycardia, heart rate 116, right bundle-branch block, nonspecific STT wave abnormalities. * Telemetry tracings indicate sinus tachycardia heart rates [id number] * Chest xray moderate right-sided pleural effusion, right lower lobe infiltrate.. * Chest ultrasound revealed a 5.7 cm right pleural effusion pocket size. * Laboratory reviewed, WBC 12.6, hemoglobin 9.2, platelets 419, sodium 133, potassium 4.4, BUN 24, segment 0.6, troponin negative, proBNP 491, pro- calcitonin 1.03, Covid 19 negative, influenza negative, stool occult blood positive REVIEW OF SYSTEMS At the time of my exam: CONSTITUTIONAL: Denies fever or chills. CARDIOVASCULAR: Denies chest pain, shortness of breath, orthopnea, PND or palpitations. RESPIRATORY: Denies cough. GASTROINTESTINAL: Denies abdominal pain, diarrhea, constipation, nausea or vomiting. MUSCULOSKELETAL: Denies myalgias. NEUROLOGIC: Denies numbness, tingling, headacbe or weakness. ENDOCRINE: Denies fatigue, weight change, polydipsia or polyurina. GENITOURINARY: Denies burning, hematuria or urgency with micturation. HEMATOLOGIC: Denies history of anemia or bleeding. PHYSICAL EXAMINATION Vitals reviewed CONSTITUTIONAL: No apparent distress. Frail. HEENT: Head is normocephalic. Pupils are equal, round. Sclerae anicteric. Mucous membranes of the mouth are moist. No JVD. No carotid bruit. CHEST EXAMINATION: Lungs diminished, decreased lung sounds right lower base to auscultation. No chest wall tenderness is noted on palpation or with deep breathing. HEART EXAMINATION: Regular, tachycardic rate and rhythm. S1, S2 heard. Systolic ejection murmur noted. ABDOMEN: Soft, nontender. Positive bowel sounds. EXTREMITIES: 2+ peripheral pulses, moderate non-pitting bilateral lower extremity edema and no calf tenderness. NEUROLOGIC EXAMINATION: Patient is awake, alert and oriented x3. ASSESSMENT Atrial tachycardia Acute hypoxic respiratory failure Moderate right pleural effusion Possible pneumonia History of infection in January 2021 requiring open heart surgery and aortic valve replacement per patient Metastatic colon cancer to liver s/p chemotherapy, presacral abscess s/p drainage 08/2022 , colostomy reversal January 2022, portion of liver resection in 2018 PLAN Start metoprolol tartrate 50mg BID Obtain 2D echocardiogram and doppler study to assess valves, cardiac structure and function. Continue cardiac telemetry Will obtain records from [facility] in regards to open heart surgery and valve replacement operative note. Further recommendations based on clinical course Nurse practitioner note has been reviewed by physician. Signing provider agrees with the documented findings, assessment, and plan of care. Past Medical History Past Medical History: Cancer, GERD/Reflux, Prostate Disorder Additional Past Medical History / Comment(s): colon cancer-LAST CHEMO ON 07/14/22. GI BLEED MARCH 2020 possible lung Mets History of Any Multi-Drug Resistant Organisms: C-DIFF Date of last positivie culture/infection: 03/21/2022 MDRO Source:: stool Past Surgical History: Bowel Resection, Cardiac Valve Replacement Additional Past Surgical History / Comment(s): liver/rectal colon cancer,. COLONOSCOPY. colostomy reversal January 2022, removed section of liver in 2018 Past Anesthesia/Blood Transfusion Reactions: No Reported Reaction Past Psychological History: No Psychological Hx Reported Smoking Status: Never smoker Past Alcohol Use History: None Reported Past Drug Use History: None Reported - Past Family History Father Family Medical History: Cancer Mother Family Medical History: Osteoarthritis (OA) Medications and Allergies Home Medications Medication Instructions Recorded Confirmed Type Acetaminophen Tab [Tylenol] 650 mg PO Q6HR PRN tab 08/08/22 10/10/22 Rx Mirtazapine 7.5 mg PO DAILY@0900 08/14/22 10/10/22 History oxyCODONE HCL/ACETAMINOPHEN 1 tab PO Q4HR PRN 3 Days #18 tab 08/23/22 10/10/22 Rx [Percocet 10-325 mg] Alfuzosin HCl [Alfuzosin HCl ER] 10 mg PO HS@209909/21/22 10/10/22 History Lactulose 20 gm PO BID@0900,2100 09/21/22 10/10/22 History Sennosides [Senokot] 17.2 mg PO DAILY@0900 09/21/22 10/10/22 History cefTRIAXone [Rocephin] 2 gm IVPB Q24HR 14 Days each 09/27/22 10/10/22 Rx metroNIDAZOLE [Flagyl] 500 mg PO TID 14 Days tab 09/27/22 10/10/22 Rx Lactose-Reduced Food [Ensure Plus] 1 can PO BID@0900,1700 10/10/22 10/10/22 History Ondansetron [Zofran] 4 mg PO Q6H PRN 10/10/22 10/10/22 History Allergies Allergy/AdvReac Type Severity Reaction Status Date / Time Sulfa (Sulfonamide Allergy Anaphylaxis Verified 10/10/22 07:59 Antibiotics) Physical Exam Vitals: Vital Signs Temp Pulse Resp BP Pulse Ox 10/10/22 06:37 105 H 18 109/88 98 10/10/22 03:12 98.9 F 107 H 18 103/79 97 10/10/22 02:04 106 H 14 110/80 98 10/10/22 01:05 116 H 22 95 10/10/22 00:58 98.4 F 120 H 22 96/77 94 L Intake and Output 10/09/22 10/10/22 10/10/22 22:59 06:59 14:59 Other: Weight 61.235 kg Results 10/10/22 01:26 10/10/22 02:46 Cardiac Enzymes 10/10/22 10/10/22 Range/Units 01:26 02:46 AST 157 H (17-59) U/L Troponin I <0.012 (0.000-0.034) ng/mL Coagulation 10/10/22 Range/Units 01:26 PT 16.6 H (9.0-12.0) sec APTT 30.4 H (22.0-30.0) sec CBC 10/10/22 Range/Units 01:26 WBC 12.6 H (3.8-10.6) k/uL RBC 3.80 L (4.30-5.90) m/uL Hgb 9.2 L (13.0-17.5) gm/dL Hct 32.5 L (39.0-53.0) % Plt Count 419 (150-450) k/uL Comprehensive Metabolic Panel 10/10/22 Range/Units 02:46 Sodium 133 L (137-145) mmol/L Potassium 4.4 (3.5-5.1) mmol/L Chloride 104 (98-107) mmol/L Carbon Dioxide 25 (22-30) mmol/L BUN 24 H (9-20) mg/dL Creatinine 0.66 (0.66-1.25) mg/dL Glucose 81 (74-99) mg/dL Calcium 7.5 L (8.4-10.2) mg/dL AST 157 H (17-59) U/L ALT 16 (4-49) U/L Alkaline Phosphatase 822 H (38-126) U/L Total Protein 5.2 L (6.3-8.2) g/dL Albumin 2.3 L (3.5-5.0) g/dL Current Medications Generic Name Dose Route Start Last Admin Trade Name Freq PRN Reason Stop Dose Admin Acetaminophen 650 mg 10/10/22 04:00 Acetaminophen Tab 325 Mg Tab PO Q6HR PRN Mild Pain or Fever > 100.5 Azithromycin 500 mg 10/10/22 09:00 10/10/22 08:28 Azithromycin 500 Mg Tab PO 10/13/22 09:01 500 mg DAILY CHENG Administration Protocol Heparin Sodium (Porcine) 5,000 unit 10/10/22 08:00 10/10/22 08:30 Heparin Sodium,Porcine/Pf 5,000 Unit/0.5 Ml Syringe SQ 5,000 unit Q8HR CHENG Administration Sodium Chloride 1,000 mls @ 130 mls/hr 10/10/22 04:00 10/10/22 04:41 Saline 0.9% IV 130 mls/hr .[id number] CHENG Administration Ceftriaxone Sodium 2 gm/ 50 mls @ 100 mls/hr 10/11/22 05:00 Sodium Chloride IVPB Q24H CHENG Metronidazole 500 mg 10/10/22 04:30 10/10/22 04:55 Metronidazole 500 Mg Tab PO 10/11/22 04:31 500 mg TID CHENG Administration Protocol Naloxone HCl 0.2 mg 10/10/22 03:50 Naloxone 0.4 Mg/Ml 1 Ml Vial IV Q2M PRN Opioid Reversal Oxycodone/Acetaminophen 1 each 10/10/22 04:00 10/10/22 06:04 Oxycodone-Apap 10-325mg 1 Each Tab PO 1 each Q4HR PRN Administration Pain Pantoprazole Sodium 40 mg 10/10/22 07:30 10/10/22 08:28 Pantoprazole 40 Mg Tablet PO 40 mg [id number] CHENG Administration Intake and Output 10/09/22 10/10/22 10/10/22 22:59 06:59 14:59 Other: Weight 61.235 kg 10/10/22 01:26 10/10/22 02:46
--- NOTE | 2022-10-10 12:35 | P.CNPUL ---
History of Present Illness Consult date: 10/10/22 Requesting physician: Prasad Mcknight Reason for consult: dyspnea Chief complaint: Abdominal pain, weakness, shortness of breath History of present illness: This is a pleasant 62-year-old male patient with a known history of colon cancer with liver metastasis. He had a previous history of colon resection and colostomy and subsequent reversal, liver resection, heart valve replacement. He was admitted in August 2022 for abdominal pain and diarrhea secondary to a presacral abscess. He had undergone exploratory laparotomy and drainage with partial colectomy and colostomy. He was subsequently discharged on 08/23/2022. He re-presented to the hospital on 09/21/2022 only [facility] on the [place] with poor appetite, continued weight loss and dehydration. He ws treated for sepsis, UTI and continued pelvic abscess with HOLDEN drain in place. He was discharged back to [facility] 09/27/2022 on Rocephin and Flagyl. He was brought back here again early this morning with abdominal pain and weakness. He was also found to be hypoxemic with a room air oxygen saturation of 87%. Chest x-ray reveals a new moderate right-sided pleural effusion and right lower lobe infiltrate. We are consulted for the same. White count 12.6. Hemoglobin 9.2. Platelets 419. INR 1.7. Sodium 133. Potassium 4.4. BUN 24. Creatinine 0.66. Pro-calcitonin 1.03. Stool for occult blood positive. Marsh virus by PCR not detected. Influenza screen negative. He is seen today in consultation in the emergency department. He is currently laying on a stretcher. Awake and alert. He is quite cachectic and frail. He is still having ongoing abdominal discomfort. He is maintaining O2 saturations in the mid to upper 90s on 3 L/m per nasal cannula. Afebrile. He was continued on ceftriaxone and Flagyl. Review of Systems REVIEW OF SYSTEMS: CONSTITUTIONAL: Positive for significant weight loss no weight gain. EYES: Denies change in vision. EARS, NOSE, MOUTH, THROAT: Denies headaches, denies sore throat. CARDIOVASCULAR: Denies chest pain, palpitations or syncopal episodes. RESPIRATORY: Positive for shortness of breath, no cough, congestion or hemoptysis. GASTROINTESTINAL: Positive for abdominal pain. GENITOURINARY: Denies hematuria, denies infections. MUSKULOSKELETAL: Denies pain, denies swelling. INTEGUMENTARY: Denies rash, denies eczema. NEUROLOGICAL: Denies recent memory loss, no recent seizure activity. PSYCHIATRIC: Denies anxiety, denies depression. HEMATOLOGIC/LYMPHATIC: Denies anemia, denies enlarged lymph nodes. Past Medical History Past Medical History: Cancer, GERD/Reflux, Prostate Disorder Additional Past Medical History / Comment(s): colon cancer-LAST CHEMO ON 07/14/22. GI BLEED MARCH 2020 possible lung Mets History of Any Multi-Drug Resistant Organisms: C-DIFF Date of last positivie culture/infection: 03/21/2022 MDRO Source:: stool Past Surgical History: Bowel Resection, Cardiac Valve Replacement Additional Past Surgical History / Comment(s): liver/rectal colon cancer,. COLONOSCOPY. colostomy reversal January 2022, removed section of liver in 2018 Past Anesthesia/Blood Transfusion Reactions: No Reported Reaction Past Psychological History: No Psychological Hx Reported Smoking Status: Never smoker Past Alcohol Use History: None Reported Past Drug Use History: None Reported - Past Family History Father Family Medical History: Cancer Mother Family Medical History: Osteoarthritis (OA) Medications and Allergies Home Medications Medication Instructions Recorded Confirmed Type Acetaminophen Tab [Tylenol] 650 mg PO Q6HR PRN tab 08/08/22 10/10/22 Rx Mirtazapine 7.5 mg PO DAILY@0900 08/14/22 10/10/22 History oxyCODONE HCL/ACETAMINOPHEN 1 tab PO Q4HR PRN 3 Days #18 tab 08/23/22 10/10/22 Rx [Percocet 10-325 mg] Alfuzosin HCl [Alfuzosin HCl ER] 10 mg PO HS@209909/21/22 10/10/22 History Lactulose 20 gm PO BID@0900,2100 09/21/22 10/10/22 History Sennosides [Senokot] 17.2 mg PO DAILY@0900 09/21/22 10/10/22 History cefTRIAXone [Rocephin] 2 gm IVPB Q24HR 14 Days each 09/27/22 10/10/22 Rx metroNIDAZOLE [Flagyl] 500 mg PO TID 14 Days tab 09/27/22 10/10/22 Rx Lactose-Reduced Food [Ensure Plus] 1 can PO BID@0900,1700 10/10/22 10/10/22 History Ondansetron [Zofran] 4 mg PO Q6H PRN 10/10/22 10/10/22 History Allergies Allergy/AdvReac Type Severity Reaction Status Date / Time Sulfa (Sulfonamide Allergy Anaphylaxis Verified 10/10/22 07:59 Antibiotics) Physical Exam Vitals: Vital Signs Temp Pulse Resp BP Pulse Ox 10/10/22 09:38 108 H 16 110/70 98 10/10/22 06:37 105 H 18 109/88 98 10/10/22 03:12 98.9 F 107 H 18 103/79 97 10/10/22 02:04 106 H 14 110/80 98 10/10/22 01:05 116 H 22 95 10/10/22 00:58 98.4 F 120 H 22 96/77 94 L Intake and Output 10/09/22 10/10/22 10/10/22 22:59 06:59 14:59 Other: Weight 61.235 kg GENERAL EXAM: Alert, pleasant 61-year-old male patient, cachectic, on 3 L nasal cannula, fairly comfortable in no apparent distress. HEAD: Normocephalic. EYES: Normal reaction of pupils, equal size. NOSE: Clear with pink turbinates. THROAT: No erythema or exudates. NECK: No masses, no JVD. CHEST: No chest wall deformity. LUNGS: Equal air entry with diminished breath sounds on the right. CVS: S1 and S2 normal with no audible murmur, regular rhythm. ABDOMEN: Colostomy intact. No hepatosplenomegaly, normal bowel sounds, no guarding or rigidity. SPINE: No scoliosis or deformity SKIN: No rashes CENTRAL NERVOUS SYSTEM: No focal deficits, tone is normal in all 4 extremities. EXTREMITIES: There is no peripheral edema. No clubbing, no cyanosis. Peripheral pulses are intact. Results - Laboratory Findings CBC and BMP: 10/10/22 01:26 10/10/22 02:46 PT/INR, D-dimer PT 16.6 sec (9.0-12.0) H 10/10/22 01:26 INR 1.7 (<1.2) H 10/10/22 01:26 Abnormal lab findings: Abnormal Labs 10/10/22 10/10/22 10/10/22 01:26 01:26 01:26 WBC 12.6 H RBC 3.80 L Hgb 9.2 L Hct 32.5 L MCH 24.3 L MCHC 28.4 L RDW 20.2 H Neutrophils # 10.7 H Lymphocytes # 0.9 L PT 16.6 H INR 1.7 H APTT 30.4 H Sodium BUN Calcium AST Alkaline Phosphatase Total Protein Albumin Procalcitonin 1.03 H Urine Protein Urine Ketones Urine Bilirubin Ur Leukocyte Esterase Urine Bacteria Hyaline Casts Urine Mucus 10/10/22 10/10/22 02:46 06:11 WBC RBC Hgb Hct MCH MCHC RDW Neutrophils # Lymphocytes # PT INR APTT Sodium 133 L BUN 24 H Calcium 7.5 L AST 157 H Alkaline Phosphatase 822 H Total Protein 5.2 L Albumin 2.3 L Procalcitonin Urine Protein 2+ H Urine Ketones 2+ H Urine Bilirubin 1+ H Ur Leukocyte Esterase Trace H Urine Bacteria Rare H Hyaline Casts 5 H Urine Mucus Many H - Diagnostic Findings Chest x-ray: image reviewed Assessment and Plan Assessment: Acute hypoxemic respiratory failure secondary to an acute right sided pleural effusion and possible infiltrate. Pro-calcitonin 1.03. Abdominal pain and weakness secondary to metastatic rectal cancer to the liver Recent admission for a presacral abscess status post exploratory laparotomy and drainage with partial colectomy and colostomy. Continued on ceftriaxone and Flagyl in the outpatient setting Metastatic rectal cancer with prior resection and resection of liver, had been receiving chemotherapy until July 2022 History of leak at rectal surgical site requiring colostomy and then reversal colostomy History of heart valve replacement Plan: The patient was seen and evaluated Chest x-ray, labs and medications reviewed We will order ultrasound of the right chest If significant may plan for thoracentesis Currently on ceftriaxone and Flagyl Titrate the FiO2 as tolerated Continue with fluid resuscitation of saline at 130 ML's per hour We will continue to follow and make further recommendations based on his clinical status I have personally seen and examined the patient, performed the documentation and the assessment and plan as written. Number of minutes spent on the visit: 20.
--- NOTE | 2022-10-10 13:46 | P.GSCN ---
History of Present Illness Consult date: 10/10/22 History of present illness: CHIEF COMPLAINT: Shortness of breath HISTORY OF PRESENT ILLNESS: This is a 62-year-old male with a known history of metastatic rectal cancer with metastatic disease to liver diagnosed in 2018. Patient had had resection of the rectal cancer and a partial hepatic resection at [facility]. He had developed a leak at the resection site requiring colostomy placement with reversal. He has received chemotherapy. Patient had exploratory laparotomy with drainage of presacral abscess with partial colectomy and colostomy on 08/15/2022. He has HOLDEN due to still in place that is still having a purulent dark drainage. He had been on antibiotics outpatient. Patient presents to the ER with worsening shortness of breath and weakness. Patient also has evidence of pleural effusion and is followed by pulmonary service. Patient is also having black stools in his colostomy bag. Per patient this is been present for about 1-2 days. He does report mid abdominal pain. He has had some nausea. Denies any vomiting. Reports poor oral intake. H emoglobin on admission is 9.2 stool for occult blood is positive. He denies being on any blood thinners or iron supplement. Patient has been tachycardic and evaluated by cardiology. He was hypotensive on admission. Blood pressure remains on the lower side. PAST MEDICAL HISTORY: See below PAST SURGICAL HISTORY: See below MEDICATIONS: See below ALLERGIES: See below SOCIAL HISTORY: No illicit drug use. REVIEW OF SYSTEMS: CONSTITUTIONAL: Denies fever or chills. HEENT: Denies blurred vision, vision changes, or eye pain. Denies hemoptysis CARDIOVASCULAR: Denies chest pain or pressure. RESPIRATORY: No shortness of breath. GASTROINTESTINAL: See HPI for pertinent findings HEMATOLOGIC: Denies bleeding disorders. GENITOURINARY: Denies any blood in urine or increased urinary frequency. SKIN: Denies pruitis. Denies rash. PHYSICAL EXAM: VITAL SIGNS: Reviewed GENERAL: Well-developed in no acute distress. HEENT: No sclera icterus. Extraocular movements grossly intact. Moist buccal mucosa. Head is atraumatic, normocephalic. No nasal drainage. ABDOMEN: Soft. Nondistended. Nontender. Colostomy bag with black stool NEUROLOGIC: Alert and oriented. Cranial nerves II through XII grossly intact. LABORATORY DATA: WBC 12.6 Hgb 9.2 plt 419 INR 1.7 Sodium is 133 potassium is 4.4 creatinine 0.66 Lactic acid 1.8 Total bilirubin 1.0 AST 157 ALT 16 alk phos 822 Stool for occult blood positive Covid and influenza screening negative IMAGING: Chest x-ray moderate right pleural effusion and probably some right lower lobe infiltrate and new compared to old exam. No heart failure seen Chest ultrasound pending ASSESSMENT: 1. GI bleed with black stools 2. Anemia with history of chronic anemia 3. Right-sided pleural effusion 4. Metastatic rectal cancer to the liver status post resection and partial hepatic resection 5. History of presacral abscess status post exploratory laparotomy and drainage with partial colectomy and colostomy. PLAN: -Further recommendations forthcoming per surgeon -Continue to monitor hemoglobin -Continue monitoring for signs or symptoms of bleeding -Add IV Protonix -Discontinue subcu heparin -Continue IV fluids -Continue supportive care -Continue to monitor HOLDEN drain Physician Director Of Sports Medicine note has been reviewed by physician. Signing provider agrees with the documented findings, assessment, and plan of care. Past Medical History Past Medical History: Cancer, GERD/Reflux, Prostate Disorder Additional Past Medical History / Comment(s): colon cancer-LAST CHEMO ON 07/14/22. GI BLEED MARCH 2020 possible lung Mets History of Any Multi-Drug Resistant Organisms: C-DIFF Year Discovered:: 03/21/2022 MDRO Source:: stool Past Surgical History: Bowel Resection, Cardiac Valve Replacement Additional Past Surgical History / Comment(s): liver/rectal colon cancer,. COLONOSCOPY. colostomy reversal January 2022, removed section of liver in 2018 Past Anesthesia/Blood Transfusion Reactions: No Reported Reaction Past Psychological History: No Psychological Hx Reported Smoking Status: Never smoker Past Alcohol Use History: None Reported Past Drug Use History: None Reported - Past Family History Father Family Medical History: Cancer Mother Family Medical History: Osteoarthritis (OA) Medications and Allergies Home Medications Medication Instructions Recorded Confirmed Type Acetaminophen Tab [Tylenol] 650 mg PO Q6HR PRN tab 08/08/22 10/10/22 Rx Mirtazapine 7.5 mg PO DAILY@0900 08/14/22 10/10/22 History oxyCODONE HCL/ACETAMINOPHEN 1 tab PO Q4HR PRN 3 Days #18 tab 08/23/22 10/10/22 Rx [Percocet 10-325 mg] Alfuzosin HCl [Alfuzosin HCl ER] 10 mg PO HS@2100 09/21/22 10/10/22 History Lactulose 20 gm PO BID@0900,2100 09/21/22 10/10/22 History Sennosides [Senokot] 17.2 mg PO DAILY@0900 09/21/22 10/10/22 History cefTRIAXone [Rocephin] 2 gm IVPB Q24HR 14 Days each 09/27/22 10/10/22 Rx metroNIDAZOLE [Flagyl] 500 mg PO TID 14 Days tab 09/27/22 10/10/22 Rx Lactose-Reduced Food [Ensure Plus] 1 can PO BID@0900,1700 10/10/22 10/10/22 History Ondansetron [Zofran] 4 mg PO Q6H PRN 10/10/22 10/10/22 History Allergies Allergy/AdvReac Type Severity Reaction Status Date / Time Sulfa (Sulfonamide Allergy Anaphylaxis Verified 10/10/22 07:59 Antibiotics) Surgical - Exam Vital Signs Temp Pulse Resp BP Pulse Ox 98.4 F 120 H 22 96/77 94 L 10/10/22 00:58 10/10/22 00:58 10/10/22 00:58 10/10/22 00:58 10/10/22 00:58 Results - Labs 10/10/22 01:26 10/10/22 02:46 Abnormal Lab Results - Last 24 Hours (Table) 10/10/22 10/10/22 10/10/22 Range/Units 01:26 01:26 01:26 WBC 12.6 H (3.8-10.6) k/uL RBC 3.80 L (4.30-5.90) m/uL Hgb 9.2 L (13.0-17.5) gm/dL Hct 32.5 L (39.0-53.0) % MCH 24.3 L (25.0-35.0) pg MCHC 28.4 L (31.0-37.0) g/dL RDW 20.2 H (11.5-15.5) % Neutrophils # 10.7 H (1.3-7.7) k/uL Lymphocytes # 0.9 L (1.0-4.8) k/uL PT 16.6 H (9.0-12.0) sec INR 1.7 H (<1.2) APTT 30.4 H (22.0-30.0) sec Sodium (137-145) mmol/L BUN (9-20) mg/dL Calcium (8.4-10.2) mg/dL AST (17-59) U/L Alkaline Phosphatase (38-126) U/L Total Protein (6.3-8.2) g/dL Albumin (3.5-5.0) g/dL Procalcitonin 1.03 H (0.02-0.09) ng/mL Urine Protein (Negative) Urine Ketones (Negative) Urine Bilirubin (Negative) Ur Leukocyte Esterase (Negative) Urine Bacteria (None) /hpf Hyaline Casts (0-2) /lpf Urine Mucus (None) /hpf 10/10/22 10/10/22 Range/Units 02:46 06:11 WBC (3.8-10.6) k/uL RBC (4.30-5.90) m/uL Hgb (13.0-17.5) gm/dL Hct (39.0-53.0) % MCH (25.0-35.0) pg MCHC (31.0-37.0) g/dL RDW (11.5-15.5) % Neutrophils # (1.3-7.7) k/uL Lymphocytes # (1.0-4.8) k/uL PT (9.0-12.0) sec INR (<1.2) APTT (22.0-30.0) sec Sodium 133 L (137-145) mmol/L BUN 24 H (9-20) mg/dL Calcium 7.5 L (8.4-10.2) mg/dL AST 157 H (17-59) U/L Alkaline Phosphatase 822 H (38-126) U/L Total Protein 5.2 L (6.3-8.2) g/dL Albumin 2.3 L (3.5-5.0) g/dL Procalcitonin (0.02-0.09) ng/mL Urine Protein 2+ H (Negative) Urine Ketones 2+ H (Negative) Urine Bilirubin 1+ H (Negative) Ur Leukocyte Esterase Trace H (Negative) Urine Bacteria Rare H (None) /hpf Hyaline Casts 5 H (0-2) /lpf Urine Mucus Many H (None) /hpf Diabetes panel 10/10/22 Range/Units 02:46 Sodium 133 L (137-145) mmol/L Potassium 4.4 (3.5-5.1) mmol/L Chloride 104 (98-107) mmol/L Carbon Dioxide 25 (22-30) mmol/L BUN 24 H (9-20) mg/dL Creatinine 0.66 (0.66-1.25) mg/dL Glucose 81 (74-99) mg/dL Calcium 7.5 L (8.4-10.2) mg/dL AST 157 H (17-59) U/L ALT 16 (4-49) U/L Alkaline Phosphatase 822 H (38-126) U/L Total Protein 5.2 L (6.3-8.2) g/dL Albumin 2.3 L (3.5-5.0) g/dL Calcium panel 10/10/22 Range/Units 02:46 Calcium 7.5 L (8.4-10.2) mg/dL Albumin 2.3 L (3.5-5.0) g/dL Pituitary panel 10/10/22 Range/Units 02:46 Sodium 133 L (137-145) mmol/L Potassium 4.4 (3.5-5.1) mmol/L Chloride 104 (98-107) mmol/L Carbon Dioxide 25 (22-30) mmol/L BUN 24 H (9-20) mg/dL Creatinine 0.66 (0.66-1.25) mg/dL Glucose 81 (74-99) mg/dL Calcium 7.5 L (8.4-10.2) mg/dL Adrenal panel 10/10/22 Range/Units 02:46 Sodium 133 L (137-145) mmol/L Potassium 4.4 (3.5-5.1) mmol/L Chloride 104 (98-107) mmol/L Carbon Dioxide 25 (22-30) mmol/L BUN 24 H (9-20) mg/dL Creatinine 0.66 (0.66-1.25) mg/dL Glucose 81 (74-99) mg/dL Calcium 7.5 L (8.4-10.2) mg/dL Total Bilirubin 1.0 (0.2-1.3) mg/dL AST 157 H (17-59) U/L ALT 16 (4-49) U/L Alkaline Phosphatase 822 H (38-126) U/L Total Protein 5.2 L (6.3-8.2) g/dL Albumin 2.3 L (3.5-5.0) g/dL
--- NOTE | 2022-10-10 14:38 | P.PN ---
Progress Note - Text Progress Note Date: 10/10/22 Patient seen and examined, case was discussed with the family, has acute right sided pleural effusion and possible infiltrate. Pro-calcitonin 1.03. Pulmonary planning possible thoracentesis. Patient is also having black stools in his colostomy bag. Per patient this is been present for about 1-2 days. On PPI, seen by surgery. Also has recent aortic valve replacement, currently is tachycardia. Obtain echocardiogram per cardiology consult.
[2022-10-10] MEDS: PANTOPRAZOLE 40 MG/10 ML VIAL IVP SCH (22:17)
[2022-10-11] MEDS: SODIUM CHLORIDE 0.9% 1,000 ML IV SCH (05:37)
--- NOTE | 2022-10-11 08:47 | XR ---
EXAMINATION TYPE: XR chest 1V portable DATE OF EXAM: 10/11/2022 Comparison: 10/10/2022 Clinical History: 62-year-old male s/p rt thoracentesis Findings: Median sternotomy wires are present. Surgical clips along the proximal stomach. Right anterior chest wall injection port with catheter tip at the mid SVC level. Heart normal size. Prosthetic aortic valv e. Moderate right pleural effusion remains, slightly decreased from prior exam. Unable to exclude a t race right apical pneumothorax measuring 4 mm. Impression: 1. Moderate right pleural effusion with adjacent atelectasis and/or consolidation remains. Slightly i mproved from yesterday. 2. Trace 4 mm right apical pneumothorax. Findings called to [address] [place] [address] and given to nurse Prudy at 8:42 am.
[2022-10-11] MEDS: oxyCODONE-APAP 10-325MG 1 EACH TAB PO PRN (09:43)
[2022-10-11] MEDS: METOPROLOL TARTRATE 12.5 MG TAB PO SCH ×2 (09:45→10:00)
[2022-10-11] MEDS: AZITHROMYCIN 500 MG TAB PO SCH (09:47)
--- NOTE | 2022-10-11 09:47 | CA ---
Transthoracic Echo Report Name: Elliot Garrison Age: 62 Gender: M : 1960 Exam Date: 10/11/2022 08:41 Exam Location: [facility] Ht (in): 68 Wt (lb): 135 Ordering Physician: Adelaide De La Vega Attending/Referring Phys: Tin Can Laborer Ally Granados, FRANK Procedure CPT: Indications: shortness of breath, AV replacement 2020 Cardiac Hx: Attempted Study pt has cancer and decline in heatlth, in pain while doing study. Technical Quality: Very technically difficult study Contrast 1: Total Dose (mL): Contrast 2: Total Dose (mL): MEASUREMENTS (Male / Female) Normal Values 2D ECHO LV Diastolic Diameter PLAX 2.8 cm 4.2 - 5.9 / 3.9 - 5.3 cm LV Systolic Diameter PLAX 2.5 cm IVS Diastolic Thickness 1.8 cm 0.6 - 1.0 / 0.6 - 0.9 cm LVPW Diastolic Thickness 1.3 cm 0.6 - 1.0 / 0.6 - 0.9 cm LV Relative Wall Thickness 1.1 RV Internal Dim ED PLAX 4.5 cm LA Systolic Diameter LX 4.3 cm 3.0 - 4.0 / 2.7 - 3.8 cm FINDINGS Left Ventricle Left ventricular ejection fraction is estimated at 55A %. Right Ventricle Moderate right ventricular dilatation. Right Atrium Normal right atrial size. Left Atrium Mildly increased left atrial diameter. Mitral Valve Mitral valve not well visualized. Aortic Valve Aortic valve not well visualized. Tricuspid Valve Tricuspid valve not well visualized. Pulmonic Valve Pulmonic valve not well visualized. Pericardium Echo free space anterior to the right ventricle likely represents a fat pad. Aorta CONCLUSIONS Left ventricular size is normal ejection fractions in the 50% range. There is a right ventricular enlargement of a moderate degree. Valve structures are poorly seen. Patient has a bioprosthetic aortic valve, repair of tricuspid valve and a VSD repair by history but none of this can be visualized well on this limited transthoracic study with off axis views. No pericardial effusion probably some fat pad Previewed by: Dr. Caesar Stacy MD (Electronically Signed) Final Date: 11 October 2022 09:46
--- NOTE | 2022-10-11 10:18 | P.PN ---
Subjective Progress Note Date: 10/11/22 This is a pleasant 62-year-old male patient with a known history of colon cancer with liver metastasis. He had a previous history of colon resection and colostomy and subsequent reversal, liver resection, heart valve replacement. He was admitted in August 2022 for abdominal pain and diarrhea secondary to a presacral abscess. He had undergone exploratory laparotomy and drainage with partial colectomy and colostomy. He was subsequently discharged on 08/23/2022. He re-presented to the hospital on 09/21/2022 only [place] on the loy[place] with poor appetite, continued weight loss and dehydration. He ws treated for sepsis, UTI and continued pelvic abscess with HOLDEN drain in place. He was discharged back to [facility] 09/27/2022 on Rocephin and Flagyl. He was brought back here again early this morning with abdominal pain and weakness. He was also found to be hypoxemic with a room air oxygen saturation of 87%. Chest x-ray reveals a new moderate right-sided pleural effusion and right lower lobe infiltrate. We are consulted for the same. White count 12.6. Hemoglobin 9.2. Platelets 419. INR 1.7. Sodium 133. Potassium 4.4. BUN 24. Creatinine 0.66. Pro-calcitonin 1.03. Stool for occult blood positive. Marsh virus by PCR not detected. Influenza screen negative. He is seen today in consultation in the emergency department. He is currently laying on a stretcher. Awake and alert. He is quite cachectic and frail. He is still having ongoing abdominal discomfort. He is maintaining O2 saturations in the mid to upper 90s on 3 L/m per nasal cannula. Afebrile. He was continued on ceftriaxone and Flagyl. The patient is seen today 10/11/2022 in follow-up on the regular medical floor. He is currently resting in bed. Awake and alert in no acute distress. He is maintaining O2 saturations in the 90s on 3 L/m per nasal cannula. Blood culture reveals no growth to date. Labs pending. He is continued on ceftriaxone and azithromycin. Normal saline at 130 ML's per hour. Echo echocardiogram revealed preserved left ventricular systolic function with ejection fraction of 50%. H istory of bioprosthetic aortic valve and repair of tricuspid valve as well as a VSD repair. Not well visualized on echo. Ultrasound revealed a right-sided pleural effusion pocket measuring 5.7 cm. Left pleural effusion too small to measure. He did undergo a right-sided thoracentesis this morning with 850, yellow fluid removed. Cytology and fluid analysis pending. Follow-up chest x- ray revealed a 4 mm tiny right apical pneumothorax. Slight improvement in the aeration of the right lung. Objective - Vital Signs Vital signs: Vital Signs Temp 97.4 F L 10/11/22 09:27 Pulse 106 H 10/11/22 09:27 Resp 18 10/11/22 09:27 BP 108/77 10/11/22 09:27 Pulse Ox 87 L 10/11/22 09:27 FiO2 Intake & Output 10/10/22 10/11/22 10/11/22 18:59 06:59 18:59 Intake Total 1500 Output Total 50 Balance 1450 Weight 61.235 kg Intake: Intake, IV Titration 1000 Amount Sodium Chloride 0.9% 1, 1000 000 ml @ 130 mls/hr IV . Q7H42M [facility] Rx#:[id number] Oral 500 Output: Stool 50 Other: Voiding Method Urinal Diaper # Voids 1 - Exam GENERAL EXAM: Alert, 61-year-old male patient, frail, cachectic, on 3 L nasal cannula, fairly comfortable in no apparent distress. HEAD: Normocephalic. EYES: Normal reaction of pupils, equal size. NOSE: Clear with pink turbinates. THROAT: No erythema or exudates. NECK: No masses, no JVD. CHEST: No chest wall deformity. LUNGS: Equal air entry with diminished breath sounds on the right. CVS: S1 and S2 normal with no audible murmur, regular rhythm. ABDOMEN: Colostomy intact. HOLDEN drain in place. No hepatosplenomegaly, normal bowel sounds, no guarding or rigidity. SPINE: No scoliosis or deformity SKIN: No rashes CENTRAL NERVOUS SYSTEM: No focal deficits, tone is normal in all 4 extremities. EXTREMITIES: There is no peripheral edema. No clubbing, no cyanosis. Peripheral pulses are intact. - Labs CBC & Chem 7: 10/10/22 01:26 10/10/22 02:46 Labs: Microbiology - Last 24 Hours (Table) 10/10/22 01:00 Blood Culture - Preliminary Blood No Growth after 24 hours Assessment and Plan Assessment: Acute hypoxemic respiratory failure secondary to an acute right sided pleural effusion and possible infiltrate. Pro-calcitonin 1.03. He remains on ceftriaxone and azithromycin. He did undergo a right-sided thoracentesis today 10/11/2022 with 850 cloudy yellow fluid removed. Cytology and fluid analysis pending Abdominal pain and weakness secondary to metastatic rectal cancer to the liver Recent admission for a presacral abscess status post exploratory laparotomy and drainage with partial colectomy and colostomy. HOLDEN drain remains in place. Continued on ceftriaxone and Flagyl in the outpatient setting Metastatic rectal cancer with prior resection and resection of liver, had been receiving chemotherapy until July 2022 History of leak at rectal surgical site requiring colostomy and then reversal colostomy History of heart valve replacement Plan: The patient was seen and evaluated Chest x-ray, labs and medications reviewed Status post right-sided thoracentesis with 850 MLS cloudy yellow fluid removed Currently on ceftriaxone and azithromycin Titrate the FiO2 as tolerated Continue with fluid resuscitation of saline at 130 ML's per hour Overall prognosis remains guarded We will continue to follow I have personally seen and examined the patient, performed the documentation and the assessment and plan as written. Number of minutes spent on the visit: 10.
[2022-10-11] MEDS ORDERED: HYDROmorphone 1 MG/ML 1 ML SYRINGE IVP PRN (10:26)
[2022-10-11] MEDS ORDERED: HYDROmorphone 0.5 MG/0.5 ML SYRINGE IVP PRN (10:27)
[2022-10-11 10:34] LABS: HCT 27.8 % (39.6-50.0); HGB 7.9 g/dL (13.0-17.0); MCH 23.4 pg (27.0-32.0); MCHC 28.4 g/dL (32.0-37.0); MCV 82.5 fL (80.0-97.0); Mean Platelet Volume 11.4 fL (9.5-12.2); NRBC Per 100 WBC 0 /100 WBCS (0.0-0.0); Platelet Count 378 X 10*3/uL (140-440); RBC 3.37 X 10*6/uL (4.40-5.60); RDW 24.4 % (11.5-14.5); WBC 14.27 X 10*3/uL (4.50-10.00)
[2022-10-11 11:02] LABS: Albumin/Globulin Ratio 0.71 (1.60-3.17); Anion Gap 13.6 mmol/L (10.00-18.00); BUN/Creat Ratio 37.83 Ratio (12.00-20.00); Blood Urea Nitrogen 22.7 mg/dL (9.0-27.0); Calcium 8.1 mg/dL (8.7-10.3); Carbon Dioxide 22.4 mmol/L (20.0-27.5); Globulin 2.8 g/dL (1.6-3.3); Potassium 4.2 mmol/L (3.5-5.5); Total Bilirubin 0.6 mg/dL (0.30-1.20); Total Protein 4.8 g/dL (6.2-8.2)
[2022-10-11 11:03] LABS: Basophils # (A) 0.04 X 10*3/uL (0.00-0.10); Basophils % (A) 0.3 %; Eosinophils # (A) 0.02 X 10*3/uL (0.04-0.35); Eosinophils % (A) 0.1 %; Immature Grans, Automated 0.6 %; Lymphocytes # (A) 0.99 X 10*3/uL (0.90-5.00); Lymphocytes % (A) 6.9 %; Macrocytosis (M) 2+; Monocytes # (A) 1.09 X 10*3/uL (0.20-1.00); Monocytes % (A) 7.6 %; Neutrophils # (A) 12.05 X 10*3/uL (1.80-7.70); Neutrophils % (A) 84.5 %; Target Cells 2+
--- NOTE | 2022-10-11 11:17 | P.PN ---
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 In 03/2021 s/p debridement of tricuspid valve septal and anterior leaflet for endocarditis, s/p reconstruction of the aortic annulus with bovine p ericardium, s/p Patch repair of aorta right atrial defect, patch repair of VSD caused by endocarditis, Complex tricuspid valve repair reconstruction and patch augmentation of anterior and septal leaflet defect and LV permanent epicardial lead placement all in 03/2021 at [facility]. Also has a history of metastatic colon cancer to liver s/p chemotherapy, presacral abscess s/p drainage 08/2022 , colostomy reversal January 2022, portion of liver resection in 2019. He followed up with a cardioloigist at [facility] in [place] after his surgery but does not currently see a recreation program coordinator. We have been asked to see in consultation for tachycardia. Patient presents to the ER with complaints of shortness of breath and hypoxia. Patient is currently at a rehab facility, the nurse checked on the patient's vital signs and was found to be hypoxic with oxygen saturations of 88% on room air. He underwent a chest x-ray that morning at [facility] on the haugen. The report revealed a moderate right effusion with diffuse right airspace disease. Left lung is clear. He presented to the emergency department for further evaluation. Cardiology was consulted for tachycardia. Patient was tachycardic on admission with HR low 100s, EKG concerned for A fib/Aflutter, EKG revealed atrial tachycardia. 10/11/2022 Patient seen and examined at bedside, lying flat comfortably in bed. Breathing has slightly improved. Telemetry revealed patient in sinus rhythm with heart rates in the 80s-100. Blood pressure 108/77. Chest x-ray revealed moderate right pleural effusion with adjacent atelectasis and/or consolidation. Slightly improved from yesterday. Trace 4 mm right apical pneumothorax. Pulmonary is following. Echocardiogram revealed EF of 50%, right ventricle enlargement of moderate degre e, valve structures are poorly seen, patient has a 5% aortic valve, repair of tricuspid valvular VSD repair, however valves were not well visualized on the 2- D echo. PHYSICAL EXAMINATION Vitals reviewed CONSTITUTIONAL: No apparent distress. Frail. HEENT: Head is normocephalic. No JVD. No carotid bruit. CHEST EXAMINATION: Lungs diminished, decreased lung sounds right lower base to auscultation. No chest wall tenderness is noted on palpation or with deep breathing. HEART EXAMINATION: Regular, tachycardic rate and rhythm. S1, S2 heard. Systolic ejection murmur noted. ABDOMEN: Soft, nontender. Positive bowel sounds. EXTREMITIES: 2+ peripheral pulses, moderate non-pitting bilateral lower extremity edema and no calf tenderness. NEUROLOGIC EXAMINATION: Patient is awake, alert and oriented x3. ASSESSMENT Atrial tachycardia Acute hypoxic respiratory failure Moderate right pleural effusion Possible pneumonia Status post right sided thoracentesis with 850mL removed History of infection in January 2021 requiring open heart surgery and aortic valve replacement per patient Metastatic colon cancer to liver s/p chemotherapy, presacral abscess s/p drainage 08/2022 , colostomy reversal January 2022, portion of liver resection in 2018 History of Endocarditis of aortic valve and tricuspid valve s/p debridement and reconstruction of tricuspid valve and aortic valve replacement 03/2021 At [facility] History of Bicuspid aortic valve disease with severe stenosis and severe aortic insufficiency s/p aortic valve replacement 03/2021 History of Moderate to severe tricuspid regurgitation History of Complete heart block s/p LV permanent epicardial lead placement 03/2021 History of VSD repair PLAN Metoprolol tartrate 12.5mg BID Continue cardiac telemetry Continue current medical treatment at this time Continue supportive care Further recommendations based on clinical course Nurse practitioner note has been reviewed by physician. Signing provider agrees with the documented findings, assessment, and plan of care. Objective - Vital Signs Vital signs: Vital Signs Temp 97.4 F L 10/11/22 05:00 Pulse 100 10/11/22 05:00 Resp 16 10/11/22 05:00 BP 93/62 10/11/22 05:00 Pulse Ox 91 L 10/11/22 05:00 FiO2 Intake & Output 10/10/22 10/11/22 10/11/22 18:59 06:59 18:59 Intake Total 1500 Output Total 50 Balance 1450 Weight 61.235 kg Intake: Intake, IV Titration 1000 Amount Sodium Chloride 0.9% 1, 1000 000 ml @ 130 mls/hr IV . Q7H42M [facility] Rx#:[id number] Oral 500 Output: Stool 50 Other: Voiding Method Urinal Diaper # Voids 1 - Labs CBC & Chem 7: 10/11/22 06:36 10/10/22 02:46 Labs: Abnormal Lab Results - Last 24 Hours (Table) 10/10/22 Range/Units 01:26 Procalcitonin 1.03 H (0.02-0.09) ng/mL Microbiology - Last 24 Hours (Table) 10/10/22 01:00 Blood Culture - Preliminary Blood No Growth after 24 hours
[2022-10-11 11:47] VITALS: BMI 20.5
--- NOTE | 2022-10-11 11:49 | P.PN ---
Subjective Progress Note Date: 10/11/22 CHIEF COMPLAINT: Shortness of breath HISTORY OF PRESENT ILLNESS: Patient is status post right-sided thoracentesis today for pleural effusion with pulmonary service. Patient is sitting up at bedside chair. Daughter is at bedside. Patient stills feels very weak. Head even difficulty getting to the chair today. His stool in his ostomy remains black. He has right lower abdominal pain. He reports poor oral intake. Patient is afebrile. Mild tachycardic. Blood pressures remain on the lower side. WBC is 14.27 hemoglobin dropped from 9.2-7.9 symptoms 137 potassium is 4.2 creatinine 0.6 glucose 68. Patient did meet with palliative care service ankle status has been changed no code. And patient will be meeting with hospice today. Patient did not want to proceed with endoscopies. Patient requesting just to be made comfortable. PHYSICAL EXAM: VITAL SIGNS: Reviewed. GENERAL: Well-developed in no acute distress. HEENT: No sclera icterus. Extraocular movements grossly intact. Moist buccal mucosa. Head is atraumatic, normocephalic. ABDOMEN: Soft. Nondistended. Tender right lower abdomen. Ostomy with black stool. HOLDEN drain with dark output NEUROLOGIC: Alert and oriented. Cranial nerves II through XII grossly intact. ASSESSMENT: 1. GI bleed with black stools 2. Anemia with history of chronic anemia 3. Right-sided pleural effusion 4. Metastatic rectal cancer to the liver status post resection and partial hepatic resection 5. History of presacral abscess status post exploratory laparotomy and drainage with partial colectomy and colostomy. HOLDEN drain remains in place. PLAN: -Agree with hospice evaluation -Continue supportive care -Continue IV Protonix -Continue to monitor hemoglobin -Continue monitoring signs and symptoms of bleeding -Continue IV fluids -Continue antibiotics Physician Water Jet Operator note has been reviewed by physician. Signing provider agrees with the documented findings, assessment, and plan of care. I have personally seen and examined the patient, reviewed the CASINO GAMING WORKER /PAs history, exam and MDM and agree with the assessment and plan as written. Based on total visit time, I have performed more than 50% of the visit. As above: Patient with ongoing discomfort and suspicion for upper GI bleeding. Complains of weakness. Mild lower abdominal pain. Patient meeting with hospice team today. Hospice certainly reasonable option at this point. Objective - Vital Signs Vital signs: Vital Signs Temp 97.4 F L 10/11/22 09:27 Pulse 106 H 10/11/22 09:27 Resp 18 10/11/22 09:27 BP 108/77 10/11/22 09:27 Pulse Ox 87 L 10/11/22 09:27 FiO2 Intake & Output 10/10/22 10/11/22 10/11/22 18:59 06:59 18:59 Intake Total 1500 Output Total 50 Balance 1450 Weight 61.235 kg Intake: Intake, IV Titration 1000 Amount Sodium Chloride 0.9% 1, 1000 000 ml @ 130 mls/hr IV . Q7H42M [facility] Rx#:[id number] Oral 500 Output: Stool 50 Other: Voiding Method Urinal Diaper # Voids 1 - Labs CBC & Chem 7: 10/11/22 06:36 10/11/22 06:36 Labs: Microbiology - Last 24 Hours (Table) 10/10/22 01:00 Blood Culture - Preliminary Blood No Growth after 24 hours
[2022-10-11 12:07] VITALS: BP 85/56; PULSE 90; RESP 14; TEMP 98.6
--- NOTE | 2022-10-11 12:18 | P.PN ---
Subjective Progress Note Date: 10/11/22 Principal diagnosis: Sob He is s/p right sided thoracentesis with 850mL removed, he feels miserable this am, states that he is worse compared to yesterday, more nausea, muscle aches and sob. No fevers. Objective - Vital Signs Vital signs: Vital Signs Temp 98.6 F 10/11/22 11:16 Pulse 90 10/11/22 11:16 Resp 14 10/11/22 11:16 BP 85/56 10/11/22 11:16 Pulse Ox 91 L 10/11/22 11:16 FiO2 Intake & Output 10/10/22 10/11/22 10/11/22 18:59 06:59 18:59 Intake Total 1500 Output Total 50 Balance 1450 Weight 61.235 kg 61.235 kg Intake: Intake, IV Titration 1000 Amount Sodium Chloride 0.9% 1, 1000 000 ml @ 130 mls/hr IV . Q7H42M [facility] Rx#:[id number] Oral 500 Output: Stool 50 Other: Voiding Method Urinal Diaper # Voids 1 - Exam Constitutional: Diaphoretic, cachectic, conversant, pleasant Eyes:Anicteric sclerae, moist conjunctiva, no lid-lag, PERRLA, ENMT: Oropharynx clear, no erythema, exudates Neck: Supple, FROM, no masses, or JVD, No carotid bruits, No thyromegaly Lungs: Clear to auscultation, Clear to percussion, Normal respiratory effort, no accessory muscle use Cardiovascular: Heart regular in rate and rhythm, No murmurs, gallops, or rubs, No peripheral edema Abdominal: Soft, functional colostomy with dark fecal material , RLQ drain in place, disomfort to deep plapation , no guarding, rebound or rigidity. Abdomen moving with respiration, Normoactive bowel sounds. No palpable mass Skin: Normal temperature, tone, texture, turgor, no induration, No subcutaneous nodules, No rash, lesions, No ulcers Extremities: + muscle atrophy. No digital cyanosis, No clubbing, Pedal pulses intact and symmetrical, Radial pulses intact and symmetrical, No calf tenderness Neuro: Muscles Strength 5/5 in all 4 extremities, Sensation to light touch g rossly present throughout, Cranial nerves II-XII grossly intact, no focal sensory deficits - Labs CBC & Chem 7: 10/11/22 06:36 10/11/22 06:36 Labs: Abnormal Lab Results - Last 24 Hours (Table) 10/11/22 10/11/22 Range/Units 06:36 06:36 WBC 14.27 H (4.50-10.00) X 10*3/uL RBC 3.37 L (4.40-5.60) X 10*6/uL Hgb 7.9 L (13.0-17.0) g/dL Hct 27.8 L (39.6-50.0) % MCH 23.4 L (27.0-32.0) pg MCHC 28.4 L (32.0-37.0) g/dL RDW 24.4 H (11.5-14.5) % Immature Gran # 0.08 H (0.00-0.04) X 10*3/uL Neutrophils # 12.05 H (1.80-7.70) X 10*3/uL Monocytes # 1.09 H (0.20-1.00) X 10*3/uL Eosinophils # 0.02 L (0.04-0.35) X 10*3/uL BUN/Creatinine Ratio 37.83 H (12.00-20.00) Ratio Glucose 68 L (70-110) mg/dL Calcium 8.1 L (8.7-10.3) mg/dL AST 139 H (14-35) U/L Alkaline Phosphatase 682 H (41-126) U/L Total Protein 4.8 L (6.2-8.2) g/dL Albumin 2.0 L (3.8-4.9) g/dL Albumin/Globulin Ratio 0.71 L (1.60-3.17) g/dL Microbiology - Last 24 Hours (Table) 10/10/22 01:00 Blood Culture - Preliminary Blood No Growth after 24 hours Assessment and Plan Plan: Acute hypoxemic respiratory failure secondary to an acute right sided pleural effusion and possible infiltrate. Pro-calcitonin 1.03. On ceftriaxone and azithromycin. S/p right-sided thoracentesis 10/11/2022 with 850 cloudy yellow fluid removed. Cytology and fluid analysis pending follow up cultures pulmonary following tylenol for fever IVF hydration with normal saline Metastatic colon cancer elevated liver enzymes secondary to metastatic colon cancer continue to monitor supportive care Hospice care d/w patient again today, will initiate, consult hospice Acute on chronic anemia likely due to GI bleeding Hgb declining Surgery consulted. continue to monitor PPI daily DVT PPx heparin sc tid full code Will sign up for hospice. Orders in for comfort care.
[2022-10-11] MEDS: PANTOPRAZOLE 40 MG/10 ML VIAL IVP SCH (12:25)
--- NOTE | 2022-10-11 14:13 | P.CONS ---
History of Present Illness - Reason for Consult Consult date: 10/11/22 Goals of care Requesting physician: Dalton Burdick - Chief Complaint Shortness of breath and weakness - History of Present Illness This is a 62-year-old male whom has had multiple hospitalizations over the past 1-2 months. He is a resident of [facility] and was sent to the ED on 10/10/22 for worsening shortness of breath and weakness and was hypoxemic upon present ation. He reports some difficulty breathing and a non-productive cough. Denies any chest pain, no fever, but positive chills. He has a history significant for metastatic rectal cancer with metastatic disease to liver diagnosed in 2018. Patient had had resection of the rectal cancer and a partial hepatic resection at [facility]. He had developed a leak at the resection site requiring colostomy placement with reversal. He has received chemotherapy. Patient had exploratory laparotomy with drainage of presacral abscess with partial colectomy and colostomy on 08/15/2022. He has HOLDEN due to still in place that is still having a purulent dark drainage. He had been on antibiotics outpatient. Patient presents to the ER with . Patient is also having black stools in his colostomy bag. Per patient this is been present for about 1-2 days. He does report mid abdominal pain. He has had some nausea. Denies any vomiting. Reports poor oral intake. Hemoglobin on admission is 9.2 stool for occult blood is positive. He denies being on any blood thinners or iron supplement. Patient has been tachycardic and evaluated by cardiology. He was hypotensive on admission. Blood pressure remains on the lower side. Workup in the ED also includes a CXR showing possible infilterates right lower lobe along with possibly progressive right pleural effusion compared to prior CT done 2 weeks ago. He is s/p right sided thoracentesis with 850mL removed. Post thora CXR shows a 4mm right apical pneumothorax. Review of Systems Constitutional: Reports as per HPI Past Medical History Past Medical History: Cancer, GERD/Reflux, Prostate Disorder Additional Past Medical History / Comment(s): colon cancer-LAST CHEMO ON 07/14/22. GI BLEED MARCH 2020 possible lung Mets History of Any Multi-Drug Resistant Organisms: C-DIFF Year Discovered:: 03/21/2022 MDRO Source:: stool Past Surgical History: Bowel Resection, Cardiac Valve Replacement Additional Past Surgical History / Comment(s): liver/rectal colon cancer,. COLONOSCOPY. colostomy reversal January 2022, removed section of liver in 2018 Past Anesthesia/Blood Transfusion Reactions: No Reported Reaction Past Psychological History: No Psychological Hx Reported Smoking Status: Never smoker Past Alcohol Use History: None Reported Past Drug Use History: None Reported - Past Family History Father Family Medical History: Cancer Mother Family Medical History: Osteoarthritis (OA) Medications and Allergies Home Medications Medication Instructions Recorded Confirmed Type Acetaminophen Tab [Tylenol] 650 mg PO Q6HR PRN tab 08/08/22 10/10/22 Rx Mirtazapine 7.5 mg PO DAILY@0900 08/14/22 10/10/22 History oxyCODONE HCL/ACETAMINOPHEN 1 tab PO Q4HR PRN 3 Days #18 tab 08/23/22 10/10/22 Rx [Percocet 10-325 mg] Alfuzosin HCl [Alfuzosin HCl ER] 10 mg PO HS@2100 09/21/22 10/10/22 History Lactulose 20 gm PO BID@0900,2100 09/21/22 10/10/22 History Sennosides [Senokot] 17.2 mg PO DAILY@0900 09/21/22 10/10/22 History cefTRIAXone [Rocephin] 2 gm IVPB Q24HR 14 Days each 09/27/22 10/10/22 Rx metroNIDAZOLE [Flagyl] 500 mg PO TID 14 Days tab 09/27/22 10/10/22 Rx Lactose-Reduced Food [Ensure Plus] 1 can PO BID@0900,1700 10/10/22 10/10/22 History Ondansetron [Zofran] 4 mg PO Q6H PRN 10/10/22 10/10/22 History Allergies Allergy/AdvReac Type Severity Reaction Status Date / Time Sulfa (Sulfonamide Allergy Anaphylaxis Verified 10/10/22 07:59 Antibiotics) Physical Exam Vitals: Vital Signs Temp Pulse Pulse Resp BP BP BP 10/11/22 11:16 98.6 F 90 14 82/61 85/56 10/11/22 09:27 97.4 F L 106 H 18 108/77 10/11/22 05:00 97.4 F L 100 16 93/62 10/10/22 20:30 16 10/10/22 19:25 98 F 103 H 16 107/74 10/10/22 17:00 105 H 16 98/64 10/10/22 16:00 105 H 16 109/82 Pulse Ox 10/11/22 11:16 91 L 10/11/22 09:27 87 L 10/11/22 05:00 91 L 10/10/22 20:30 10/10/22 19:25 95 10/10/22 17:00 97 10/10/22 16:00 97 Intake and Output 10/10/22 10/11/22 10/11/22 22:59 06:59 14:59 Intake Total 1500 Output Total 50 Balance 1450 Intake: Intake, IV Titration 1000 Amount Sodium Chloride 0.9% 1, 1000 000 ml @ 130 mls/hr IV . Q7H42M [facility] Rx#:[id number] Oral 500 Output: Stool 50 Other: Voiding Method Urinal Diaper # Voids 1 Weight 61.235 kg 61.235 kg General: Cachectic, Chronically ill appearing. HEENT: Head is atraumatic, normocephalic. CV: Heart regular in rate and rhythm positive S1 and S2. Peripheral pulses eq ual. 2/4 Lungs: Clear to auscultation bilaterally. Respirations even and slightly labored. On 3L NC Abdomen/GI: Soft. + abdominal tenderness. . Colostomy to LLQ with dark stool present, HOLDEN drain to RLQ : No suprapubic tenderness. Musculoskeletal/ Extremities: MONAE, + generalized weakness, + muscle atrophy Skin: Warm and dry, No rash or lesions. Neurologic: Lethargic, oriented times 3. CN II-XII grossly intact. No focal deficits. Psychiatric: Flat affect. Results CBC & Chem 7: 10/11/22 06:36 10/11/22 06:36 Labs: Abnormal Lab Results - Last 24 Hours (Table) 10/11/22 10/11/22 Range/Units 06:36 06:36 WBC 14.27 H (4.50-10.00) X 10*3/uL RBC 3.37 L (4.40-5.60) X 10*6/uL Hgb 7.9 L (13.0-17.0) g/dL Hct 27.8 L (39.6-50.0) % MCH 23.4 L (27.0-32.0) pg MCHC 28.4 L (32.0-37.0) g/dL RDW 24.4 H (11.5-14.5) % Immature Gran # 0.08 H (0.00-0.04) X 10*3/uL Neutrophils # 12.05 H (1.80-7.70) X 10*3/uL Monocytes # 1.09 H (0.20-1.00) X 10*3/uL Eosinophils # 0.02 L (0.04-0.35) X 10*3/uL BUN/Creatinine Ratio 37.83 H (12.00-20.00) Ratio Glucose 68 L (70-110) mg/dL Calcium 8.1 L (8.7-10.3) mg/dL AST 139 H (14-35) U/L Alkaline Phosphatase 682 H (41-126) U/L Total Protein 4.8 L (6.2-8.2) g/dL Albumin 2.0 L (3.8-4.9) g/dL Albumin/Globulin Ratio 0.71 L (1.60-3.17) g/dL Microbiology - Last 24 Hours (Table) 10/10/22 01:00 Blood Culture - Preliminary Blood No Growth after 24 hours Chest x-ray: report reviewed CT scan - abdomen: report reviewed Assessment and Plan Assessment: Social * Occupation - Unemployed * Marital status - Single * Children/grandchildren - one adult daughter * Residence - [facility] * ETOH - No * Tobacco - No * Illicit drugs - No Spiritual/Cultural * A spiritual person - No * Mormon - N/A * Belong to a particular latter day - No * Beliefs a source of comfort and strength - No * Buddhist or cultural practices restrictions - None * EOL considerations/rituals - None Functional Assessment * Able to walk independently - No * Assistive devices - Walker and wheelchair * Able to use the bathroom independently - No * Continent - No * Require assistance bathing- Yes * Able to feed self - Yes * Who prepares meals - MARITO * How many meals a day eaten - 1-2 Psychological/Emotional * Dementia present - No * Insight and judgment - Yes * Depression - Yes * Suicidal thoughts - No * Good support system - Yes * Patients goals - Comfort * Frequent hospitalizations - Yes * Desire to keep coming back to the hospital for treatment - No Symptoms * Pain - 10/10 abdominal pain * Fatigue - Extreme weakness and debility * SOB - Yes * Insomnia - No * N/V - Yes * Anxiety - No * Depression - Yes * Confusion - No * Agitation - No * Hallucinations - No * Appetite/weight loss - Yes, patient reports no appetite, + recent weight loss * Dysphagia - No * 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 Education provided regarding his metastatic colon cancer and other co-morbidities. The patient is not eating much. He is unable to even stand now without assistance. He is frail and debilitated. The patient states he understands that he is not getting any better, he is getting worse. Palliative care and hospice philosophies and services explained. The patient states that he is too weak to pursue aggressive treatment. His goal is to be comfortable and pain free. He is tired of being in pain. His daughter and him agree that hospice would be most appropriate to help control his pain and give him a better quality of life. Hospice consult placed. community services manager aware. Code status also discussed in detail. The patient wishes to be a do not resuscitate. Recommendations - Priti DEVI with hospice Advanced Directives - No Code Status - DNR Thank you for this consultation Kamilah Bullard [facility] Palliative Care [facility] [id number] Email: [email or web address] Time with Patient: Greater than 30
[2022-10-11 14:23] LABS: Total Protein 4.9 g/dL (6.2-8.2)
[2022-10-11 17:54] LABS: Appearance,BF Clear
[2022-10-11 18:46] LABS: Glucose, BF Source Pleural Fluid; Glucose, Body Fluid 77 mg/dL; LDH, Body Fluid Source Pleural Fluid; T. Protein, Body Fluid Source Pleural Fluid; Total Protein, Body Fluid 3250 mg/dL
--- NOTE | 2022-10-11 22:50 | OP ---
OPERATIVE REPORT PROCEDURE PERFORMED: Right-sided thoracentesis. PREOPERATIVE DIAGNOSIS: Large right-sided pleural effusion. POSTOPERATIVE DIAGNOSIS: Large right-sided pleural effusion. ANESTHESIA USED: 2 mL of 1% lidocaine. DESCRIPTION OF PROCEDURE: The patient was placed in a sitting upright position, the area below the right scapula was prepared in a sterile fashion and drapes were applied. The area of the fluid was earlier localized by ultrasound guidance and the marking was placed at the level of the 8th intercostal space and tip of the scapula. The area was locally anesthetized with lidocaine. Then, a 26-gauge needle was inserted into the pleural space. The fluid was localized with a needle, and a small tiny incision was made at the same site, a standard 9-Welsh thoracentesis catheter and needle used, advanced into the pleural space until the fluid was localized again, and the catheter was advanced over the needle and the needle was pulled out of the pleural space. Roughly 850 mL of ruben colored fluid was removed from the right pleural space. Fluid was sent for different diagnostic studies. Procedure was well tolerated, a chest x-ray done postoperatively showed a possible very small tiny apical pneumothorax, it is not certain, but the patient may have sustained a very small tiny apical pneumothorax. Followup chest x-ray will be done in 24 hours. MMODL / IJN: [id number] /
--- NOTE | 2022-10-12 12:29 | P.DS ---
Providers Date of admission: 10/10/22 03:52 Expected date of discharge: 10/11/22 Attending physician: Prasad Mcknight MD Consults: 10/10/22 03:50 Consult Physician Urgent Consulting Provider: Tahir Orozco Consult Reason/Comments: hypoxic resp failure, pleural effusion Do you want consulting provider notified?: Yes 10/10/22 04:01 Consult Physician Routine Consulting Provider: Moises Tucker Consult Reason/Comments: GI bleed Do you want consulting provider notified?: Yes, Notify in am 10/10/22 08:27 Consult Physician Routine Consulting Provider: Magdiel Lima Consult Reason/Comments: atrial flutter Do you want consulting provider notified?: Yes 10/10/22 10:35 Consult to Palliative Care Routine Consulting Provider: Kamilah Bullard Consult Reason/Comments: goals of care Do you want consulting provider notified?: Yes Primary care physician: Amaury Pulido MD Hospital Course: 62-year-old male patient with a known history of colon cancer with liver metas tasis. He had a previous history of colon resection and colostomy and subsequent reversal, liver resection, heart valve replacement. He was admitted in August 2022 for abdominal pain and diarrhea secondary to a presacral abscess. He had undergone exploratory laparotomy and drainage with partial colectomy and colostomy. He was subsequently discharged on 08/23/2022. He re- presented to the hospital on 09/21/2022 from [facility] [place] with poor appetite, continued weight loss and dehydration. He was treated for sepsis, UTI and continued pelvic abscess with HOLDEN drain in place. He was discharged back to [facility] 09/27/2022 on Rocephin and Flagyl. He was brought back here again early this morning with abdominal pain and weakness, black stools and worsening sob. He was also found to be hypoxemic with a room air oxygen saturation of 87%. Chest x-ray reveals a new moderate right-sided pleural effusion and right lower lobe infiltrate. We are consulted for the same. White count 12.6. Hemoglobin 9.2. Platelets 419. INR 1.7. Sodium 133. Potassium 4.4. BUN 24. Creatinine 0.66. Pro-calcitonin 1.03. Stool for occult blood positive. Marsh virus by PCR not detected. Influenza screen negative. He was admitted, was found to have acute hypoxemic respiratory failure secondary to an acute right sided pleural effusion and possible infiltrate, pro-calcitonin 1.03. He was treated with ceftriaxone and azithromycin. He was seen by pulmonary who performed right-sided thoracentesis 10/11/2022 with 850 cloudy yellow fluid removed. Cytology and fluid analysis pending. He was also found to have acute on chronic anemia likely due to GI bleeding, hgb was declining, surgery consulted, no scopes advised. He was treated with PPI only. It was noted that patient has little insight about the progression and the very poor prognosis of the colon cancer. Last CT of the abdomen done in September showed increased size of liver mets. He was told about that in details, decided that he wants comfort care at this point. He was seen by hospice and transitioned to hospice care. He was seen face to face on the day of discharge 10/11 Time for discharge 36 min Patient Condition at Discharge: Stable Plan - Discharge Summary Discharge Rx Participant: No New Discharge Prescriptions: No Action Acetaminophen Tab [Tylenol] 650 mg PO Q6HR PRN tab PRN Reason: Mild Pain Or Fever > 100.5 Mirtazapine 7.5 mg PO DAILY@0900 Ondansetron [Zofran] 4 mg PO Q6H PRN PRN Reason: Nausea oxyCODONE HCL/ACETAMINOPHEN [Percocet 10-325 mg] 1 tab PO Q4HR PRN 3 Days #18 tab PRN Reason: Pain Sennosides [Senokot] 17.2 mg PO DAILY@0900 Lactulose 20 gm PO BID@0900,2100 Alfuzosin HCl [Alfuzosin HCl ER] 10 mg PO HS@2100 metroNIDAZOLE [Flagyl] 500 mg PO TID 14 Days tab cefTRIAXone [Rocephin] 2 gm IVPB Q24HR 14 Days each Lactose-Reduced Food [Ensure Plus] 1 can PO BID@0900,1700 Discharge Medication List Acetaminophen Tab [Tylenol] 650 mg PO Q6HR PRN tab 08/08/22 [Rx] Mirtazapine 7.5 mg PO DAILY@0900 08/14/22 [History] oxyCODONE HCL/ACETAMINOPHEN [Percocet 10-325 mg] 1 tab PO Q4HR PRN 3 Days #18 tab 08/23/22 [Rx] Alfuzosin HCl [Alfuzosin HCl ER] 10 mg PO HS@2100 09/21/22 [History] Lactulose 20 gm PO BID@0900,2100 09/21/22 [History] Sennosides [Senokot] 17.2 mg PO DAILY@0900 09/21/22 [History] cefTRIAXone [Rocephin] 2 gm IVPB Q24HR 14 Days each 09/27/22 [Rx] metroNIDAZOLE [Flagyl] 500 mg PO TID 14 Days tab 09/27/22 [Rx] Lactose-Reduced Food [Ensure Plus] 1 can PO BID@0900,1700 10/10/22 [History] Ondansetron [Zofran] 4 mg PO Q6H PRN 10/10/22 [History] Follow up Appointment(s)/Referral(s): Amaury Pulido MD [Primary Care Provider] - 1-2 days Discharge Disposition: DISCH TO [facility]
== END 2022-10-11 12:37 | disposition hospice, inpatient (51) ==
LOC: EC 00:53 → SUPCPDRO 00:53 → 5NMEDONC 03:52
PROVIDERS: ADMIT Internal Medicine; ATTEND Internal Medicine
DX: J96.01 Acute respiratory failure with hypoxia (principal); I44.2 Atrioventricular block, complete; K68.19 Other retroperitoneal abscess; I47.1 Supraventricular tachycardia; I48.92 Unspecified atrial flutter; J93.83 Other pneumothorax; D64.9 Anemia, unspecified; J90 Pleural effusion, not elsewhere classified; C78.7 Secondary malignant neoplasm of liver and intrahepatic bile duct; K21.9 Gastro-esophageal reflux disease without esophagitis; F32.A Depression, unspecified; Z79.899 Other long term (current) drug therapy; Z88.2 Allergy status to sulfonamides; Z93.3 Colostomy status; Z92.21 Personal history of antineoplastic chemotherapy; Z20.822 Contact with and (suspected) exposure to COVID-19; Z80.9 Family history of malignant neoplasm, unspecified; Z90.49 Acquired absence of other specified parts of digestive tract; Z95.3 Presence of xenogenic heart valve; Z85.048 Personal history of other malignant neoplasm of rectum, rectosigmoid junction, and anus; Z51.5 Encounter for palliative care; Z56.0 Unemployment, unspecified; Z66 Do not resuscitate
CPT/HCPCS: 96361 ×3; 96365; 96375 ×2; 96376; 96372; 99285; 36415; 93005; 93308; 97163; 97167; 83880; 80053 ×2; 89050; 83605; 83615 ×2; 83735 ×2; 84155; 84484; 85025 ×2; 85610; 85730; 82272; 81001; 87040; 87252; 87070; 87205; 87116; 87102; 87206; 82945; 84157; 87502; 84145; 87635; 71045; 71046; 76604; 32555; G0378 ×2; J0696 ×2; J3010; C9113; J1644; 87496; 87498; 87529; 87634; 87798; 88108; 88305; 88341; 88342

== ENCOUNTER 2022-10-11 12:03 | Inpatient (IN) | payer MEDICAID ==
[2022-10-11] MEDS ORDERED: ACETAMINOPHEN SUPPOSITORY 650 MG SUPP RECTAL PRN (12:29)
[2022-10-11] MEDS ORDERED: ATROPINE OPHTH SOLN 1% 5ML BTL SUBLINGUAL PRN (12:29)
[2022-10-11] MEDS ORDERED: ONDANSETRON 4 MG/2 ML VIAL IVP PRN (12:29)
[2022-10-11] MEDS ORDERED: MORPHINE SULFATE 4 MG/ML SYRINGE IV PRN (12:29)
[2022-10-11] MEDS ORDERED: LORazepam 2 MG/ML INJ IV PRN (12:29)
[2022-10-11] MEDS ORDERED: MORPHINE CONC SOLN 10mg/0.5mL ORAL SYRG PO PRN (12:31)
[2022-10-11] MEDS: SCOPOLAMINE 1 MG/72 HR PATCH TRANSDERM SCH (14:06)
[2022-10-11] MEDS: MORPHINE SULFATE 4 MG/ML SYRINGE IVP PRN ×3 (14:06→22:51)
[2022-10-12] MEDS: MORPHINE SULFATE 4 MG/ML SYRINGE IVP PRN ×3 (05:10→13:19)
[2022-10-12 05:15] VITALS: BP 101/72; PULSE 110; RESP 18
--- NOTE | 2022-10-12 12:32 | P.HPIM ---
History of Present Illness H&P Date: 10/11/22 Chief Complaint: sob 62-year-old male patient with a known history of colon cancer with liver metastasis. He had a previous history of colon resection and colostomy and subsequent reversal, liver resection, heart valve replacement. He was admitted in August 2022 for abdominal pain and diarrhea secondary to a presacral abscess. He had undergone exploratory laparotomy and drainage with partial colectomy and colostomy. He was subsequently discharged on 08/23/2022. He re- presented to the hospital on 09/21/2022 from [facility] [place] with poor appetite, continued weight loss and dehydration. He was treated for sepsis, UTI and continued pelvic abscess with HOLDEN drain in place. He was discharged back to [facility] 09/27/2022 on Rocephin and Flagyl. He was brought back here again early this morning with abdominal pain and weakness, black stools and worsening sob. He was also found to be hypoxemic with a room air oxygen saturation of 87%. Chest x-ray reveals a new moderate right-sided pleural effusion and right lower lobe infiltrate. We are consulted for the same. White count 12.6. Hemoglobin 9.2. Platelets 419. INR 1.7. Sodium 133. Potassium 4.4. BUN 24. Creatinine 0.66. Pro-calcitonin 1.03. Stool for occult blood positive. Marsh virus by PCR not detected. Influenza screen negative. He was admitted, was found to have acute hypoxemic respiratory failure secondary to an acute right sided pleural effusion and possible infiltrate, pro-calcitonin 1.03. He was treated with ceftriaxone and azithromycin. He was seen by pulmonary who performed right-sided thoracentesis 10/11/2022 with 850 cloudy yellow fluid removed. Cytology and fluid analysis pending. He was also found to have acute on chronic anemia likely due to GI bleeding, hgb was declining, surgery consulted, no scopes advised. He was treated with PPI only. It was noted that patient has little insight about the progression and the very poor prognosis of the colon cancer. Last CT of the abdomen done in September showed increased size of liver mets. He was told about that in details, decided that he wants comfort care at this point. He was seen by hospice and transitioned to hospice care. Review of Systems Complete review of system performed, pertinent positives per HPI otherwise negative Past Medical History Past Medical History: Cancer, GERD/Reflux, Prostate Disorder Additional Past Medical History / Comment(s): colon cancer-LAST CHEMO ON 07/14/22. GI BLEED MARCH 2020 possible lung Mets History of Any Multi-Drug Resistant Organisms: C-DIFF Date of last positivie culture/infection: 03/21/2022 MDRO Source:: stool Past Surgical History: Bowel Resection, Cardiac Valve Replacement Additional Past Surgical History / Comment(s): liver/rectal colon cancer,. COLONOSCOPY. colostomy reversal January 2022, removed section of liver in 2018 Past Anesthesia/Blood Transfusion Reactions: No Reported Reaction Smoking Status: Never smoker - Past Family History Father Family Medical History: Cancer Mother Family Medical History: Osteoarthritis (OA) Medications and Allergies Home Medications Medication Instructions Recorded Confirmed Type Acetaminophen Tab [Tylenol] 650 mg PO Q6HR PRN tab 08/08/22 10/11/22 Rx Mirtazapine 7.5 mg PO DAILY@0900 08/14/22 10/11/22 History oxyCODONE HCL/ACETAMINOPHEN 1 tab PO Q4HR PRN 3 Days #18 tab 08/23/22 10/11/22 Rx [Percocet 10-325 mg] Alfuzosin HCl [Alfuzosin HCl ER] 10 mg PO HS@2100 09/21/22 10/11/22 History Lactulose 20 gm PO BID@0900,2100 09/21/22 10/11/22 History Sennosides [Senokot] 17.2 mg PO DAILY@0900 09/21/22 10/11/22 History cefTRIAXone [Rocephin] 2 gm IVPB Q24HR 14 Days each 09/27/22 10/11/22 Rx metroNIDAZOLE [Flagyl] 500 mg PO TID 14 Days tab 09/27/22 10/11/22 Rx Lactose-Reduced Food [Ensure Plus] 1 can PO BID@0900,1700 10/10/22 10/11/22 History Ondansetron [Zofran] 4 mg PO Q6H PRN 10/10/22 10/11/22 History Allergies Allergy/AdvReac Type Severity Reaction Status Date / Time Sulfa (Sulfonamide Allergy Anaphylaxis Verified 10/10/22 07:59 Antibiotics) Physical Exam Vitals: Vital Signs Temp Pulse Resp BP Pulse Ox 10/12/22 05:15 97.8 F 110 H 18 101/72 82 L 10/11/22 20:10 15 10/11/22 18:55 98.7 F 104 H 15 89/62 88 L Intake and Output 10/11/22 10/12/22 10/12/22 22:59 06:59 14:59 Intake Total 500 Output Total 20 400 30 Balance -20 100 -30 Intake: Oral 500 Output: Drainage 30 Right Lower Abdomen 30 Urine 20 400 Other: Voiding Method Urinal Urinal Weight 61.2 kg Constitutional: Diaphoretic, cachectic, conversant, pleasant Eyes:Anicteric sclerae, moist conjunctiva, no lid-lag, PERRLA, ENMT: Oropharynx clear, no erythema, exudates Neck: Supple, FROM, no masses, or JVD, No carotid bruits, No thyromegaly Lungs: Clear to auscultation, Clear to percussion, Normal respiratory effort, no accessory muscle use Cardiovascular: Heart regular in rate and rhythm, No murmurs, gallops, or rubs, No peripheral edema Abdominal: Soft, functional colostomy with dark fecal material , RLQ drain in place, disomfort to deep plapation , no guarding, rebound or rigidity. Abdomen moving with respiration, Normoactive bowel sounds. No palpable mass Skin: Normal temperature, tone, texture, turgor, no induration, No subcutaneous nodules, No rash, lesions, No ulcers Extremities: + muscle atrophy. No digital cyanosis, No clubbing, Pedal pulses intact and symmetrical, Radial pulses intact and symmetrical, No calf tenderness Neuro: Muscles Strength 5/5 in all 4 extremities, Sensation to light touch grossly present throughout, Cranial nerves II-XII grossly intact, no focal sensory deficits Assessment and Plan Plan: Comfort care Hospice following Continue on opiates, benzos and scop patch.
[2022-10-12] MEDS: MORPHINE SULFATE (100 MG/2 ML) 100 MG in SODIUM CHLORIDE 0.9% 100 ML IV SCH (14:59)
[2022-10-13] MEDS ORDERED: GLYCOPYRROLATE 0.2 MG/ML 2 ML VIAL IVP PRN (09:47)
[2022-10-13 11:12] VITALS: BMI 20.5
--- NOTE | 2022-10-13 14:38 | P.PN ---
Subjective Progress Note Date: 10/13/22 Principal diagnosis: colon cancer Patient is currently doing well, he's looking comfortable. He is a morphine drip. Objective - Vital Signs Vital signs: Vital Signs Temp 97.8 F 10/12/22 05:15 Pulse 110 H 10/12/22 05:15 Resp 18 10/12/22 20:10 BP 101/72 10/12/22 05:15 Pulse Ox 82 L 10/12/22 05:15 FiO2 Intake & Output 10/12/22 10/13/22 10/13/22 18:59 06:59 18:59 Intake Total 6 0 18.989 Output Total 30 115 15 Balance -24 -115 3.989 Weight 61.2 kg Intake: Intake, IV Titration 6 18.989 Amount Morphine Sulfate (100 mg/ 6 18.989 2 ml) 100 mg In Sodium Chloride 0.9% 100 ml @ 1 MG/HR 1.02 mls/hr IV . Q24H [facility] Rx#:[id number] Oral 0 Output: Drainage 30 15 15 Right Lower Abdomen 30 15 15 Urine 100 Other: Voiding Method Urinal Urinal Diaper # Voids 1 - Exam Constitutional: cachectic, lethargic, no acute distress. Eyes:Anicteric sclerae, moist conjunctiva, no lid-lag, PERRLA, ENMT: Oropharynx clear, no erythema, exudates Neck: Supple, FROM, no masses, or JVD, No carotid bruits, No thyromegaly Lungs:bilateral rhonchi, Normal respiratory effort, no accessory muscle use Cardiovascular: Heart regular in rate and rhythm, No murmurs, gallops, or rubs, No peripheral edema Abdominal: Soft, functional colostomy with dark fecal material , RLQ drain in place, disomfort to deep plapation , no guarding, rebound or rigidity. Abdomen moving with respiration, Normoactive bowel sounds. No palpable mass Skin: Normal temperature, tone, texture, turgor, no induration, No subcutaneous nodules, No rash, lesions, No ulcers Extremities: + muscle atrophy. No digital cyanosis, No clubbing, Pedal pulses intact and symmetrical, Radial pulses intact and symmetrical, No calf tenderness Neuro: general weakness Assessment and Plan Plan: Comfort care Hospice following Continue on opiates, benzos and scop patch.
[2022-10-14] MEDS: MORPHINE SULFATE (100 MG/2 ML) 100 MG in SODIUM CHLORIDE 0.9% 100 ML IV SCH (04:59)
[2022-10-14] MEDS: SCOPOLAMINE 1 MG/72 HR PATCH TRANSDERM SCH (11:47)
[2022-10-14 11:56] VITALS: TEMP 99.9
--- NOTE | 2022-10-14 12:08 | P.PN ---
Subjective Progress Note Date: 10/14/22 Principal diagnosis: colon cancer No further needs. He is comfortable. Objective - Vital Signs Vital signs: Vital Signs Temp 99.9 F H 10/14/22 11:55 Pulse 110 H 10/12/22 05:15 Resp 18 10/13/22 20:00 BP 101/72 10/12/22 05:15 Pulse Ox 82 L 10/12/22 05:15 FiO2 Intake & Output 10/13/22 10/14/22 10/14/22 18:59 06:59 18:59 Intake Total 18.989 59.058 Output Total 15 15 15 Balance 3.989 44.058 -15 Weight 61.2 kg Intake: Intake, IV Titration 18.989 59.058 Amount Morphine Sulfate (100 mg/ 18.989 59.058 2 ml) 100 mg In Sodium Chloride 0.9% 100 ml @ 1 MG/HR 1.02 mls/hr IV . Q24H [facility] Rx#:[id number] Output: Drainage 15 15 15 Right Lower Abdomen 15 15 15 Other: Voiding Method Diaper Diaper Diaper # Voids 1 1 1 - Exam Constitutional: cachectic, lethargic, no acute distress. Eyes:Anicteric sclerae, moist conjunctiva, no lid-lag, PERRLA, ENMT: Oropharynx clear, no erythema, exudates Neck: Supple, FROM, no masses, or JVD, No carotid bruits, No thyromegaly Lungs:bilateral rhonchi, Normal respiratory effort, no accessory muscle use Cardiovascular: Heart regular in rate and rhythm, No murmurs, gallops, or rubs, No peripheral edema Abdominal: Soft, functional colostomy with dark fecal material , RLQ drain in place, disomfort to deep plapation , no guarding, rebound or rigidity. Abdomen moving with respiration, Normoactive bowel sounds. No palpable mass Skin: Normal temperature, tone, texture, turgor, no induration, No subcutaneous nodules, No rash, lesions, No ulcers Extremities: + muscle atrophy. No digital cyanosis, No clubbing, Pedal pulses intact and symmetrical, Radial pulses intact and symmetrical, No calf tenderness Neuro: general weakness Assessment and Plan Plan: Comfort care Hospice following Continue on opiates, benzos and scop patch.
[2022-10-15] MEDS: MORPHINE SULFATE (100 MG/2 ML) 100 MG in SODIUM CHLORIDE 0.9% 100 ML IV SCH (05:08)
--- NOTE | 2022-10-15 16:42 | P.DS ---
Providers Date of admission: 10/11/22 12:42 Expected date of discharge: 10/15/22 Attending physician: Prasad Mcknight MD Primary care physician: Amaury Pulido MD Hospital Course: Discharge Diagnosis: Colon cancer with liver metastases Recent history of sepsis, UTI, pelvic abscess Recent history of pleural effusion, status post thoracentesis Comfort Care measures only Hospital Course: 62-year-old male patient with a known history of colon cancer with liver metastasis. He had a previous history of colon resection and colostomy and subsequent reversal, liver resection, heart valve replacement. He was admitted in August 2022 for abdominal pain and diarrhea secondary to a presacral abscess. He had undergone exploratory laparotomy and drainage with partial colectomy and colostomy. He was subsequently discharged on 08/23/2022. He re- presented to the hospital on 09/21/2022 from [facility] [place] with poor appetite, continued weight loss and dehydration. He was treated for sepsis, UTI and continued pelvic abscess with HOLDEN drain in place. He was discharged back to [facility] 09/27/2022 on Rocephin and Flagyl. He was brought back here again early this morning with abdominal pain and weakness, black stools and worsening sob. He was also found to be hypoxemic with a room air oxygen saturation of 87%. Chest x-ray reveals a new moderate right-sided pleural effusion and right lower lobe infiltrate. We are consulted for the same. White count 12.6. Hemoglobin 9.2. Platelets 419. INR 1.7. Sodium 133. Potassium 4.4. BUN 24. Creatinine 0.66. Pro-calcitonin 1.03. Stool for occult blood positive. Marsh virus by PCR not detected. Influenza screen negative. He was admitted, was found to have acute hypoxemic respiratory failure secondary to an acute right sided pleural effusion and possible infiltrate, pro-calcitonin 1.03. He was treated with ceftriaxone and azithromycin. He was seen by pulmonary who performed right-sided thoracentesis 10/11/2022 with 850 cloudy yellow fluid removed. Cytology and fluid analysis pending. He was also found to have acute on chronic anemia likely due to GI bleeding, hgb was declining, surgery consulted, no scopes advised. He was treated with PPI only. It was noted that patient has little insight about the progression and the very poor prognosis of the colon cancer. Last CT of the abdomen done in September showed increased size of liver mets. He was told about that in details, decided that he wanted comfort care at this point. He was seen by hospice and transitioned to hospice care. Patient at 9:40 on 10/15/22. Patient Condition at Discharge: Undetermined Plan - Discharge Summary New Discharge Prescriptions: No Action Acetaminophen Tab [Tylenol] 650 mg PO Q6HR PRN tab PRN Reason: Mild Pain Or Fever > 100.5 Mirtazapine 7.5 mg PO DAILY@0900 Ondansetron [Zofran] 4 mg PO Q6H PRN PRN Reason: Nausea oxyCODONE HCL/ACETAMINOPHEN [Percocet 10-325 mg] 1 tab PO Q4HR PRN 3 Days #18 tab PRN Reason: Pain Sennosides [Senokot] 17.2 mg PO DAILY@0900 Lactulose 20 gm PO BID@0900,2100 Alfuzosin HCl [Alfuzosin HCl ER] 10 mg PO HS@2100 metroNIDAZOLE [Flagyl] 500 mg PO TID 14 Days tab cefTRIAXone [Rocephin] 2 gm IVPB Q24HR 14 Days each Lactose-Reduced Food [Ensure Plus] 1 can PO BID@0900,1700 Discharge Medication List Acetaminophen Tab [Tylenol] 650 mg PO Q6HR PRN tab 08/08/22 [Rx] Mirtazapine 7.5 mg PO DAILY@0900 08/14/22 [History] oxyCODONE HCL/ACETAMINOPHEN [Percocet 10-325 mg] 1 tab PO Q4HR PRN 3 Days #18 tab 08/23/22 [Rx] Alfuzosin HCl [Alfuzosin HCl ER] 10 mg PO HS@209909/21/22 [History] Lactulose 20 gm PO BID@0900,2100 09/21/22 [History] Sennosides [Senokot] 17.2 mg PO DAILY@0900 09/21/22 [History] cefTRIAXone [Rocephin] 2 gm IVPB Q24HR 14 Days each 09/27/22 [Rx] metroNIDAZOLE [Flagyl] 500 mg PO TID 14 Days tab 09/27/22 [Rx] Lactose-Reduced Food [Ensure Plus] 1 can PO BID@0900,1700 10/10/22 [History] Ondansetron [Zofran] 4 mg PO Q6H PRN 10/10/22 [History] Discharge Disposition: - Preliminary Cause of Preliminary Cause of : colon cancer progression
== END 2022-10-15 11:40 | disposition expired | DRG 951 ==
LOC: 5NMEDONC 12:42
PROVIDERS: ADMIT Internal Medicine; ATTEND Internal Medicine
PROC: 0W9930Z Drainage of Right Pleural Cavity with Drainage Device, Percutaneous Approach (ICD-10-PCS; principal; 2022-10-11)
DX: Z51.5 Encounter for palliative care (principal); J96.01 Acute respiratory failure with hypoxia; C18.9 Malignant neoplasm of colon, unspecified; C78.7 Secondary malignant neoplasm of liver and intrahepatic bile duct; Z20.822 Contact with and (suspected) exposure to COVID-19; J90 Pleural effusion, not elsewhere classified; K92.2 Gastrointestinal hemorrhage, unspecified; D62 Acute posthemorrhagic anemia; M62.58 Muscle wasting and atrophy, not elsewhere classified, other site; D64.9 Anemia, unspecified; E86.0 Dehydration; Z85.038 Personal history of other malignant neoplasm of large intestine; Z90.49 Acquired absence of other specified parts of digestive tract; Z93.3 Colostomy status; Z95.2 Presence of prosthetic heart valve; Z88.2 Allergy status to sulfonamides; Z87.440 Personal history of urinary (tract) infections; Z87.19 Personal history of other diseases of the digestive system